=== PATIENT | male | born 1975 | race Caucasian/White ===

== ENCOUNTER 2022-01-19 13:48 | Outpatient (CLI) | payer BC, SELFPAY | END 2022-01-19 13:49 | disposition home or self-care (01) | LOC: WOUND 13:49 | PROVIDERS: PCP Family Medicine; Visit Provider Surgery | DX: T81.41XA Infection following a procedure, superficial incisional surgical site, initial encounter (principal) | CPT/HCPCS: 97597 ==

== ENCOUNTER 2022-01-26 14:23 | Outpatient (CLI) | payer BC, SELFPAY | END 2022-01-26 14:24 | disposition home or self-care (01) | PROVIDERS: PCP Family Medicine; Visit Provider Surgery | DX: T81.41XA Infection following a procedure, superficial incisional surgical site, initial encounter (principal) | CPT/HCPCS: 99212 ==

== ENCOUNTER 2022-02-16 10:22 | Outpatient (CLI) | payer BC, SELFPAY ==
[2022-02-16 14:22] LABS: Chloride* 103 mmol/L (96-114); Potassium* 4.6 mmol/L (3.6-5.1); Sodium* 139 mmol/L (135-149)
[2022-02-16 14:25] LABS: Blood Urea Nitrogen* 17 mg/dL (5-24); Carbon Dioxide* 24 mmol/L (20-32); Creatinine* 0.8 mg/dL (0.5-1.5); Estimated Glomerular Filt Rate 111 ml/min
[2022-02-16 14:26] LABS: Calcium* 9.6 mg/dL (8.4-10.6); Glucose* 156 mg/dL (60-115)
== END 2022-02-16 10:23 | disposition home or self-care (01) ==
PROVIDERS: PCP Family Medicine; Visit Provider Family Medicine
DX: Z01.818 Encounter for other preprocedural examination (principal); Z13.29 Encounter for screening for other suspected endocrine disorder; E78.5 Hyperlipidemia, unspecified; E13.9 Other specified diabetes mellitus without complications
CPT/HCPCS: 80048; 84443

== ENCOUNTER 2022-03-19 22:11 | Inpatient (IN) | payer BC, SELFPAY ==
[2022-03-19 22:28] VITALS: BP 154/74; PULSE 111; RESP 16; TEMP 36.6; O2SAT 98; BMI 31.2
--- NOTE | 2022-03-19 22:48 | CRLHL7_ITS ---
For Patients: As a result of the Century Cures Act, medical imaging exams and procedure reports are released immediately into your electronic medical record. You may view this report before your referring provider. If you have questions, please contact your health care provider. INDICATION: Abdominal pain. TECHNIQUE: CT abdomen and pelvis acquired with 122 cc Isovue 370 IV contrast. COMPARISON: 09/18/2021. FINDINGS: Lower chest: Calcified granulomas in the right middle lobe, unchanged. No focal consolidation or pleural effusion. Liver: Hepatic steatosis. No suspicious masses. Gallbladder and bile ducts: Distended gallbladder, nonspecific. No stones or inflammation. No biliary ductal dilatation. Spleen: Unremarkable. Normal in size. No masses. Adrenal glands: Unremarkable. No nodules. Pancreas: Unremarkable. No mass or inflammation. Kidneys: Unremarkable. No suspicious masses, stones, or hydronephrosis. GI tract: Postsurgical changes of ileocolectomy with anastomosis. Diffuse dilation of the entire small bowel as well as the stomach with a transition point at the anastomosis site, consistent with small bowel obstruction. Fluid- filled colon, likely representing diarrheal state. Lymph nodes: No lymphadenopathy. Vasculature: Unremarkable. Omentum/Peritoneum/Abdominal Wall: Anterior midline surgical scar. No free air or significant free fluid. Pelvis: Unremarkable. Bones: Unremarkable for age. IMPRESSION: Small bowel obstruction with transition point at the anastomosis site. Please note that all CT scans at this facility use dose modulation, iterative reconstruction, and/or weight-based dosing when appropriate to reduce radiation dose to as low as reasonably achievable. Dictated by Danny Stanley MD @ 03/20/2022 12:08:15 AM ----- ADDENDUM ----- Upon further discussion with Dr. Banks, small bowel obstruction is likely high-grade partial small-bowel obstruction. Additionally as noted in the findings, fluid-filled colon likely representing diarrheal state. Dictated by Danny Stanley MD @ Mar 20 2022 12:36AM Signed by:?Danny Stanley MD @03/20/2022 12:08:15 AM (Electronic Signature)
--- NOTE | 2022-03-19 22:51 | ED.ABDPAIN ---
HPI - Abdominal Pain General Chief Complaint: Abdominal Pain Stated Complaint: Something wrong with intestine Time Seen by Provider: 03/19/22 22:27 History of Present Illness HPI narrative: 46-year-old man presenting to the emergency department with complaint of increasing mid and generalized abdominal pain. Sharp and crampy and radiating into the back particularly on the right side. Does have a history of recurrent bowel obstructions and in November of this year had an ileocecectomy. Unclear why he started getting these obstructions. He had pain starting early this morning. Has vomited without hematemesis. Is no longer passing flatus as of this afternoon. No fever. Has been sweating. Clarified that he indeed has actually been having diarrhea over the course of the day as well. Apparently watery stools have been a part of his history of bowel obstructions. Related Data Home Medications Medication Instructions Recorded Confirmed Medical Cannabis PO .HS 01/18/22 02/16/22 atorvastatin 20 mg tablet 20 mg PO HS 01/18/22 03/20/22 bupropion HCl 100 mg tablet,12 hr 100 mg PO DAILY 01/18/22 03/20/22 sustained-release cyclobenzaprine 5 mg tablet 5 mg PO BID PRN 01/18/22 03/20/22 gemfibrozil 600 mg tablet 600 mg PO BID 01/18/22 03/20/22 glipizide 10 mg tablet, extended 10 mg PO DAILY 01/18/22 02/16/22 release 24 hr lorazepam 0.5 mg tablet 0.5 mg PO BID PRN 01/18/22 03/20/22 methocarbamol 500 mg tablet 750 mg PO QID 01/18/22 03/20/22 omeprazole 40 mg capsule,delayed 40 mg PO DAILY 01/18/22 03/20/22 release sitagliptin 100 mg tablet 100 mg PO DAILY 01/18/22 03/20/22 trazodone 50 mg tablet 50 mg PO HS 01/18/22 03/20/22 eszopiclone 3 mg tablet 3 mg PO HS PRN 03/20/22 03/20/22 Previous Rx's Medication Instructions Recorded pregabalin 100 mg capsule 100 mg PO BID #60 caps 02/16/22 metoprolol succinate 25 mg 25 mg PO BID #180 tabs 03/15/22 tablet,extended release 24 hr Allergies Allergy/AdvReac Type Severity Reaction Status Date / Time No Known Allergies Allergy Verified 03/20/22 00:19 Review of Systems Status of ROS Reports: 6 or more systems reviewed and unremarkable except as noted in History and below [facility] Medical History (Updated 03/22/22 @ 12:21 by Wolf Alberts MD) Depression GERD (gastroesophageal reflux disease) Herniation of lumbar intervertebral disc with radiculopathy Hypertension Terminal ileitis Type 2 diabetes mellitus Surgical History History of toe surgery Status post arthroscopy of left shoulder Status post repair of ventral hernia Status post right foot surgery Status post small bowel resection Status post vasectomy Family History (Updated 03/20/22 @ 09:34 by Ghada Larkin MD) Other Diabetes Leukemia Prostate cancer Rheumatoid arthritis Social History (Updated 03/20/22 @ 09:34 by Ghada Larkin MD) Narrative: 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 He does not smoke. Rarely drinks alcohol. Highest level of school completed/degree received: some college, no degree Smoking Status: Never smoker Do you use any of these nicotine containing products: None Second hand tobacco smoke exposure: No How often do you have a drink containing alcohol: 2-4 times a month Alcohol type: beer How often do you have six or more drinks on one occasion: Never AUDIT-C Alcohol total score: 2 Non-prescribed substance use: denies use Caffeine: Yes (4 cups per day) service: No Exam Narrative: Exam Narrative: Clammy, diaphoretic. Clearly uncomfortable. Splinting a little bit with breathing. Oropharynx is moist. Abdomen is overweight soft. Minimal to no bowel sounds, I thought I heard a little bit. Tense and guards generally to palpation especially the mid abdomen. Quite sore to percussion in the flanks Extremities --moving without difficulty. Well perfused. Cardiovascular tachycardic. Regular rhythm. Lungs appear to be clear. Const: Vital Signs, click to edit/add: Vital Signs - 24 hr 03/19/22 22:28 03/20/22 00:28 03/20/22 00:00 Temperature 97.8 F Pulse Rate [Right Pulse Oximeter] 111 H 105 H 98 Respiratory Rate 16 16 16 Blood Pressure [Ri ght Upper Arm] 154/74 H 102/90 H 122/90 H Pulse Oximetry 98 95 94 Oxygen Delivery Me thod Room Air Room Air Room Air 03/20/22 01:00 Temperature Pulse Rate [Right Pulse Oximeter] 97 Respiratory Rate 22 Blood Pressure [Ri ght Upper Arm] 119/90 H Pulse Oximetry 94 Oxygen Delivery Me thod Room Air Documenting provider has reviewed patient's vital signs: yes Course Course Hospital Course: Pain is improved. Return from imaging. Reevaluation(s) Reevaluation #1: Pain has been creeping back. Dosed again with Dilaudid 1 mg and then hyoscyamine dissolvable. Reevaluation #2: I spoke with our surgeon. Puzzling picture. Remains nearly to just tachycardic. Have ordered for a L of LR. Repeat abdominal exam he is noting himself overall improved. Indeed does look more comfortable. No longer diaphoretic. Abdomen is softer and he does not guard as before. Has been proposed for an NG tube as stomach looks somewhat full on imaging. He says historically intolerant of an NG tube unless ?knocked out?. Otherwise would not accept this. He has not vomited in the last more than 12 hours. Time: 01:09 Vital Signs Vital signs: Initial Vital Signs Temperature 97.8 F 03/19/22 22:28 Temperature Source Temporal Artery Scan 03/19/22 22:28 Pulse Rate 111 H 03/19/22 22:28 Respiratory Rate 16 03/19/22 22:28 Blood Pressure 154/74 H 03/19/22 22:28 Blood Pressure Mean 100 03/19/22 22:28 Blood Pressure Position Sitting 03/19/22 22:28 Pulse Oximetry 98 03/19/22 22:28 Oxygen Delivery Method 03/19/22 22:28 Vital Signs Temperature 97.8 F 03/19/22 22:28 Pulse Rate 111 H 03/19/22 22:28 Respiratory Rate 16 03/19/22 22:28 Blood Pressure 154/74 H 03/19/22 22:28 Pulse Oximetry 98 03/19/22 22:28 Oxygen Delivery Method 03/19/22 22:28 Temperature 97.7 F 03/22/22 11:53 Pulse Rate 73 03/22/22 11:53 Respiratory Rate 16 03/22/22 11:53 Blood Pressure 123/77 03/22/22 11:53 Pulse Oximetry 98 03/22/22 11:53 Oxygen Delivery Method 03/22/22 11:53 MDM - Abdominal Pain MDM Narrative Medical decision making narrative: Radiology read indicating presumed bowel obstruction at anastomosis site. Imaging I have reviewed shows fluid-filled colon seemingly inconsistent. Radiology having communicated further with our surgery on-call, might call this more of a partial small-bowel obstruction. Anticipating admission. 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 Medical Records Attestation: I reviewed the patient's medical records. Lab Data Attestation: I reviewed the patient's lab results. Labs: Lab Results 03/19/22 03/19/22 03/19/22 Range/Units 23:10 23:10 23:10 WBC 6.44 (4.50-11.00) K/uL RBC 5.36 (4.30-5.90) m/uL Hgb 16.8 (13.5-17.5) gm/dL Hct 50.0 (37.0-53.0) % MCV 93 (80-100) fL MCH 31 (26-34) pg MCHC 34 (32-36) gm/dL RDW Coeff of Tiffanie 15.3 (11.5-15.5) % Plt Count 380 (140-440) K/uL Neut % (Auto) 73.3 H (42.0-72.0) % Lymph % (Auto) 17.7 L (20-44) % Avery % (Auto) 7.6 (0.0-11.0) % Eos % (Auto) 1.2 (0.0-7.0) % Baso % (Auto) 0.0 (0.0-3.0) % Neut # (Auto) 4.70 (1.7-7.0) K/uL Lymph # (Auto) 1.10 (0.90-2.90) K/uL Avery # (Auto) 0.50 (0.00-0.90) K/UL Eos # (Auto) 0.08 (0.00-0.50) K/uL Baso # (Auto) 0.00 (0.00-0.30) K/uL Abs Immat Gran (auto) 0.01 (0.00-0.30) K/uL VBG pH (7.32-7.43) VBG pCO2 (40-50) mmHG VBG pO2 (25-47) mmHG VBG HCO3 (21-28) mmol/L Sodium 140 (135-149) mmol/L Potassium 4.7 (3.6-5.1) mmol/L Chloride 102 (96-114) mmol/L Carbon Dioxide 19 L (20-32) mmol/L BUN 18 (5-24) mg/dL Creatinine 1.2 (0.5-1.5) mg/dL Estimated Creat Clear 91.93 Estimated GFR 76 ml/min Glucose 210 H (60-115) mg/dL Lactate 1.1 (0.5-1.9) mmol/L Calcium 10.0 (8.4-10.6) mg/dL Magnesium 2.0 (1.5-2.6) mg/dL Total Bilirubin 1.1 (0.1-1.5) mg/dL AST 38 H (12-35) U/L ALT 39 (4-50) U/L Alkaline Phosphatase 93 (40-150) U/L Lactate Dehydrogenase 364 (313-618) U/L C-Reactive Protein 1.8 H (0.5-1.0) mg/dL Total Protein 10.7 H (6.0-8.3) g/dL Albumin 5.6 H (3.3-5.0) g/dL Lipase 60 (23-300) U/L SARS-CoV-2 (PCR) (Negative) 03/19/22 03/20/22 03/20/22 Range/Units 23:30 04:20 04:20 WBC 3.88 L (4.50-11.00) K/uL RBC 4.55 (4.30-5.90) m/uL Hgb 14.3 (13.5-17.5) gm/dL Hct 44.1 (37.0-53.0) % MCV 97 (80-100) fL MCH 31 (26-34) pg MCHC 32 (32-36) gm/dL RDW Coeff of Tiffanie 15.8 H (11.5-15.5) % Plt Count 306 (140-440) K/uL Neut % (Auto) 57.5 (42.0-72.0) % Lymph % (Auto) 32.5 (20-44) % Avery % (Auto) 8.2 (0.0-11.0) % Eos % (Auto) 1.5 (0.0-7.0) % Baso % (Auto) 0.3 (0.0-3.0) % Neut # (Auto) 2.20 (1.7-7.0) K/uL Lymph # (Auto) 1.30 (0.90-2.90) K/uL Avery # (Auto) 0.30 (0.00-0.90) K/UL Eos # (Auto) 0.10 (0.00-0.50) K/uL Baso # (Auto) 0.00 (0.00-0.30) K/uL Abs Immat Gran (auto) 0.00 (0.00-0.30) K/uL VBG pH (7.32-7.43) VBG pCO2 (40-50) mmHG VBG pO2 (25-47) mmHG VBG HCO3 (21-28) mmol/L Sodium 141 (135-149) mmol/L Potassium 4.4 (3.6-5.1) mmol/L Chloride 103 (96-114) mmol/L Carbon Dioxide 25 (20-32) mmol/L BUN 18 (5-24) mg/dL Creatinine 1.0 (0.5-1.5) mg/dL Estimated Creat Clear 104.31 Estimated GFR 94 ml/min Glucose 147 H (60-115) mg/dL Lactate (0.5-1.9) mmol/L Calcium 8.4 (8.4-10.6) mg/dL Magnesium (1.5-2.6) mg/dL Total Bilirubin (0.1-1.5) mg/dL AST (12-35) U/L ALT (4-50) U/L Alkaline Phosphatase (40-150) U/L Lactate Dehydrogenase (313-618) U/L C-Reactive Protein (0.5-1.0) mg/dL Total Protein (6.0-8.3) g/dL Albumin (3.3-5.0) g/dL Lipase (23-300) U/L SARS-CoV-2 (PCR) Negative SARS-CoV-2 (Negative) 03/20/22 Range/Units 04:20 WBC (4.50-11.00) K/uL RBC (4.30-5.90) m/uL Hgb (13.5-17.5) gm/dL Hct (37.0-53.0) % MCV (80-100) fL MCH (26-34) pg MCHC (32-36) gm/dL RDW Coeff of Tiffanie (11.5-15.5) % Plt Count (140-440) K/uL Neut % (Auto) (42.0-72.0) % Lymph % (Auto) (20-44) % Avery % (Auto) (0.0-11.0) % Eos % (Auto) (0.0-7.0) % Baso % (Auto) (0.0-3.0) % Neut # (Auto) (1.7-7.0) K/uL Lymph # (Auto) (0.90-2.90) K/uL Avery # (Auto) (0.00-0.90) K/UL Eos # (Auto) (0.00-0.50) K/uL Baso # (Auto) (0.00-0.30) K/uL Abs Immat Gran (auto) (0.00-0.30) K/uL VBG pH 7.294 L (7.32-7.43) VBG pCO2 55 H (40-50) mmHG VBG pO2 27.1 (25-47) mmHG VBG HCO3 26 (21-28) mmol/L Sodium (135-149) mmol/L Potassium (3.6-5.1) mmol/L Chloride (96-114) mmol/L Carbon Dioxide (20-32) mmol/L BUN (5-24) mg/dL Creatinine (0.5-1.5) mg/dL Estimated Creat Clear Estimated GFR ml/min Glucose (60-115) mg/dL Lactate 0.9 (0.5-1.9) mmol/L Calcium (8.4-10.6) mg/dL Magnesium (1.5-2.6) mg/dL Total Bilirubin (0.1-1.5) mg/dL AST (12-35) U/L ALT (4-50) U/L Alkaline Phosphatase (40-150) U/L Lactate Dehydrogenase (313-618) U/L C-Reactive Protein (0.5-1.0) mg/dL Total Protein (6.0-8.3) g/dL Albumin (3.3-5.0) g/dL Lipase (23-300) U/L SARS-CoV-2 (PCR) (Negative) Discharge Plan Discharge Clinical Impression: Colitis, Diarrhea, Partial small bowel obstruction Patient Disposition: Admitted As Inpatient Condition: Improved
[2022-03-19 23:25] LABS: Eosinophils Absolute Auto 0.08 K/uL (0.00-0.50); Eosinophils Percent Auto 1.2 % (0.0-7.0); Hemoglobin* 16.8 gm/dL (13.5-17.5); Immature Granulocytes Abs Auto 0.01 K/uL (0.00-0.30); Lymphocytes Percent Auto 17.7 % (20-44); Mean Corpuscular HGB Conc 34 gm/dL (32-36); Mean Corpuscular Hemoglobin 31 pg (26-34); Mean Corpuscular Volume 93 fL (80-100); Monocytes Percent Auto 7.6 % (0.0-11.0); Neutrophils Percent Auto 73.3 % (42.0-72.0); Platelet Count* 380 K/uL (140-440); RDW Coefficient of Variation % 15.3 % (11.5-15.5); Red Blood Count 5.36 m/uL (4.30-5.90); White Blood Count* 6.44 K/uL (4.50-11.00)
[2022-03-19] MEDS: ONDANSETRON 2 MG/ML inj 4 MG IVP (23:27)
[2022-03-19] MEDS: HYDROmorphone 0.5 mg/0.5 ml inj 1 MG IVP (23:27)
[2022-03-19] MEDS: 0.9 % SODIUM CHLORIDE 1000 ml 1,000 ML IV (23:27)
[2022-03-19 23:30] LABS: Slide Review Reflex No
[2022-03-19 23:41] LABS: Albumin* 5.6 g/dL (3.3-5.0)
[2022-03-19 23:42] LABS: Chloride* 102 mmol/L (96-114); Potassium* 4.7 mmol/L (3.6-5.1); Sodium* 140 mmol/L (135-149)
[2022-03-19 23:44] LABS: Aspartate Amino Transferase* 38 U/L (12-35); Bilirubin Total* 1.1 mg/dL (0.1-1.5); Carbon Dioxide* 19 mmol/L (20-32); Creatinine* 1.2 mg/dL (0.5-1.5); Est. Creatinine Clearance* 91.93; Estimated Glomerular Filt Rate 76 ml/min
[2022-03-19 23:45] LABS: Alanine Aminotransferase* 39 U/L (4-50); Alkaline Phosphatase* 93 U/L (40-150); Blood Urea Nitrogen* 18 mg/dL (5-24); Glucose* 210 mg/dL (60-115); Lactate Dehydrogenase* 364 U/L (313-618); Lipase* 60 U/L (23-300); Total Protein* 10.7 g/dL (6.0-8.3)
[2022-03-19 23:47] LABS: Lactate* 1.1 mmol/L (0.5-1.9)
[2022-03-20] VITALS (13 sets, daily range): BP systolic 102–124; BP diastolic 75–90; PULSE 78–105; RESP 16–22; TEMP 36.4–36.6; O2SAT 93–95; BMI 33.3
[2022-03-20 00:05] LABS: C Reactive Protein* 1.8 mg/dL (0.5-1.0)
[2022-03-20] MEDS: HYOSCYAMINE SULFATE 0.125 MG TAB 0.25 MG SUBLINGUAL (00:23)
[2022-03-20] MEDS: HYDROmorphone 0.5 mg/0.5 ml inj 1 MG IVP ×2 (00:23→02:15)
[2022-03-20 00:38] LABS: SARS PCR* Negative SARS-CoV-2 (Negative)
--- NOTE | 2022-03-20 01:05 | PM.EN ---
Chart Event Note Chart Event Note: Called by Dr. Alberts about this patient who is a 46 yo diabetic male with a history for recurrent sbo of unclear etiology. He underwent laparoscopic converted to open ileocecectomy in November electively as he had previously appeared to have Crohn's with ileitis. Path was unremarkable and again post-op he seemed to develop SBO at the anastomosis which resolved. He has had episodes of SBO which have resolved with steroids and extensive work-up uncluding colonoscopy showing aphthous ulcer of the terminal ileum, which is why he underwent resection. He interestingly, in October of 2021, had a CT showing portal venous air which per his chart resolved with antibiotics. Presents today with N/V/D and abdominal pain. Nl white count, mildly elevated CRP, nl lactate and NAG metabolic acidosis. Mild tachycardia as well. CT showing SBO with transition point at anastomosis as before, however, pt is having copious stool. Discussed with radiologist who stated obstruction likely only partial. No sign of bowel ischemia, no enteritis noted. Abd pain now improved slightly. Pt refusing NG given history of difficult placement. After review of complex history, will consider possible transfer to [place] where GI available and extensive work-up. If unable, then admit for serial exams, fluids, etc. Repeat labs in a few hours. I have not yet examined the patient at the time of this note.
[2022-03-20] MEDS: LACTATED RINGERS 1000 ML 1,000 ML IV (01:20)
--- NOTE | 2022-03-20 01:52 | W.PC.EDHO ---
Primary Language: Preferred Language: Orientation Status: [X] Alert & Oriented [] Slight Confusion [] Known Dx Dementia Transfers By: [X] Assist of 1 [] Assist of 2 [] Lift Active Medications Discontinued Medications Generic Name Dose Route Start Last Admin Trade Name Freq PRN Reason Stop Dose Admin Hydromorphone HCl 1 mg 03/19/22 22:48 03/19/22 23:27 Hydromorphone 0.5 Mg/0.5 Ml Inj IVP 03/19/22 22:49 1 mg ONCE ONE Administration Hydromorphone HCl 1 mg 03/20/22 00:10 03/20/22 00:23 Hydromorphone 0.5 Mg/0.5 Ml Inj IVP 03/20/22 00:11 1 mg ONCE ONE Administration Hyoscyamine 0.25 mg 03/20/22 00:10 03/20/22 00:23 Hyoscyamine Sulfate 0.125 Mg Tab SUBLINGUAL 03/20/22 00:11 0.25 mg ONCE ONE Administration Sodium Chloride 1,000 mls @ 1,000 mls/hr 03/19/22 22:48 03/19/22 23:27 0.9 % Sodium Chloride 1000 Ml IV 03/19/22 23:47 1,000 mls/hr .Q1H ONE Administration Lactated Ringer's 1,000 mls @ 1,000 mls/hr 03/20/22 00:28 03/20/22 01:20 Lactated Ringers 1000 Ml IV 03/20/22 01:27 1,000 mls/hr .Q1H ONE Administration Ondansetron HCl 4 mg 03/19/22 22:48 03/19/22 23:27 Ondansetron 2 Mg/Ml Inj IVP 03/19/22 22:49 4 mg ONCE ONE Administration Description of Symptoms ED Triage Present Problem CC: Abdominal Pain, N/V, Diarrhea Description pt. with n/o bowel obstructions. had surgery at [facility] for abdominal surgery. symptoms started this morning at 0700. ED Triage Date of Onset of 03/19/22 Symptoms Female History Patient Pain Pain Description [Abdomen] Acute Pain Intensity [Abdomen] 9 Pain Intensity [Abdomen] 7 Pain Intensity 6 Pain Intensity 6 Pain Intensity 6 Pain Intensity 9 Pain Intensity 7 Pain Intensity 9 Pain Scale Used [Abdomen] Numeric (1 - 10) Pain Scale Used [Abdomen] Numeric (1 - 10) Pain Scale Used Numeric (1 - 10) Pain Scale Used Numeric (1 - 10) Pain Scale Used Numeric (1 - 10) Pain Scale Used Numeric (1 - 10) Pain Scale Used Numeric (1 - 10) Oxygen Administration Pulse Oximetry 94 Pulse Oximetry 95 Pulse Oximetry 94 Pulse Oximetry 98 Oxygen Delivery Method Room Air Oxygen Delivery Method Room Air Oxygen Delivery Method Room Air Oxygen Delivery Method Room Air
[2022-03-20] MEDS: ONDANSETRON 2 MG/ML inj 4 MG IVP ×4 (02:15→17:33)
--- NOTE | 2022-03-20 02:25 | ED.NURSE ---
pt did not want NG tube
--- NOTE | 2022-03-20 03:00 | PM.IMCN1 ---
Date of Consult Consult date: 02/20/22 Primary Care Provider: Mark Gallegos MD Consult Narrative Narrative[facility] AD[facility]ION SUPPORT NOTE eHospitalist was contacted by Dr. Alberts with request of admission support. Chief complaint: Abdominal pain HPI: The patient reports that on Monday morning he started developing pain in his abdomen similar to his previous bowel obstructions. The pain is more so in the right upper quadrant and left lower quadrant but sometimes radiates to his back. He knows that this is related to bowel obstruction because when he belches it smells and tastes funny. He then develops bowel movements that are loose and then turned to watery. He did have an episode of vomiting on Monday. He reports his pain currently is 4/10 intensity. He reports that he is unable to tolerate NG tube. Review of systems other than mentioned above is negative Home Medications/Pertinent Medical History/Pertinent Social History: Reviewed see EMR for details Review of Systems Status of ROS: Reports: 10 or more systems reviewed and unremarkable except as noted in History and below PFSH PFS Medical History (Updated 03/20/22 @ 06:32 by Ema Echevarria MD) Depression GERD (gastroesophageal reflux disease) Herniation of lumbar intervertebral disc with radiculopathy Hypertension Terminal ileitis Type 2 diabetes mellitus Surgical History History of toe surgery Status post arthroscopy of left shoulder Status post repair of ventral hernia Status post right foot surgery Status post small bowel resection Status post vasectomy Family History Other Diabetes Leukemia Prostate cancer Rheumatoid arthritis Social History Highest level of school completed/degree received: some college, no degree Smoking Status: Never smoker Do you use any of these nicotine containing products: None Second hand tobacco smoke exposure: No How often do you have a drink containing alcohol: 2-4 times a month Alcohol type: beer How often do you have six or more drinks on one occasion: Never AUDIT-C Alcohol total score: 2 Non-prescribed substance use: denies use Caffeine: Yes (4 cups per day) service: No Meds Home Medications and Allergies Home Medications Medication Instructions Recorded Confirmed Type Medical Cannabis PO .HS 01/18/22 02/16/22 History atorvastatin 20 mg tablet mg PO .Bedtime 01/18/22 02/16/22 History bupropion HCl 100 mg tablet,12 hr mg PO DAILY 01/18/22 02/16/22 History sustained-release cyclobenzaprine 5 mg tablet 5 mg PO BID PRN 01/18/22 02/16/22 History gemfibrozil 600 mg tablet 600 mg PO BID 01/18/22 02/16/22 History glipizide 10 mg tablet, extended 10 mg PO DAILY 01/18/22 02/16/22 History release 24 hr lorazepam 0.5 mg tablet mg PO BID PRN 01/18/22 02/16/22 History methocarbamol 500 mg tablet 750 mg PO QID 01/18/22 02/16/22 History omeprazole 40 mg capsule,delayed mg PO DAILY 01/18/22 02/16/22 History release oxycodone 5 mg tablet mg PO Q6H PRN 01/18/22 02/16/22 History oxycodone-acetaminophen 7.5 mg-325 tab PO QID PRN 01/18/22 02/16/22 History mg tablet sitagliptin 100 mg tablet 100 mg PO DAILY 01/18/22 02/16/22 History trazodone 50 mg tablet mg PO .Bedtime as needed PRN 01/18/22 02/16/22 History Allergies Allergy/AdvReac Type Severity Reaction Status Date / Time No Known Allergies Allergy Verified 03/20/22 00:19 Exam Narrative: Exam Narrative: Exam (performed via interactive video with assistance of bedside nurse): General: Alert, cooperative, no acute distress HEENT: Oral mucosa pink and moist without erythema Lungs: Clear to auscultation bilaterally without crackle or wheeze CV: Regular rate and rhythm without loud murmur rub, S4 gallop present Abd: Bowel sounds hypoactive, he does exhibit tenderness to palpation by bedside nurse in right lower quadrant, left lower quadrant, left upper quadrant Ext: No pitting edema noted Skin: No rashes, bruises or lesions appreciated on gross visualization of exposed skin Neuro: Alert, oriented x 3. CN III -VII, XI, XII grossly intact, moves all extremities without any significant focal deficit appreciated Const: Vital Signs, click to edit/add: Vital Signs - 24 hr 03/19/22 22:28 03/20/22 00:28 03/20/22 00:00 Temperature 97.8 F Pulse Rate [Right Pulse Oximeter] 111 H 105 H 98 Pulse Rate [Right Radial] Respiratory Rate 16 16 16 Blood Pressure [Le ft Arm] Blood Pressure [Ri ght Upper Arm] 154/74 H 102/90 H 122/90 H Pulse Oximetry 98 95 94 Oxygen Delivery Me thod Room Air Room Air Room Air 03/20/22 01:00 03/20/22 02:37 03/20/22 02:50 Temperature 97.6 F 97.6 F Pulse Rate [Right Pulse Oximeter] 97 Pulse Rate [Right Radial] 83 83 Respiratory Rate 22 18 18 Blood Pressure [Le ft Arm] 111/77 111/77 Blood Pressure [Ri ght Upper Arm] 119/90 H Pulse Oximetry 94 94 94 Oxygen Delivery Me thod Room Air Room Air Room Air Labs Labs: Short CBC 03/19/22 Range/Units 23:10 WBC 6.44 (4.50-11.00) K/uL Hgb 16.8 (13.5-17.5) gm/dL Hct 50.0 (37.0-53.0) % Plt Count 380 (140-440) K/uL BMP 03/19/22 23:10 Sodium 140 Potassium 4.7 Chloride 102 Carbon Dioxide 19 L BUN 18 Creatinine 1.2 Glucose 210 H Calcium 10.0 Liver Function 03/19/22 Range/Units 23:10 Total Bilirubin 1.1 (0.1-1.5) mg/dL AST 38 H (12-35) U/L ALT 39 (4-50) U/L Alkaline Phosphatase 93 (40-150) U/L Albumin 5.6 H (3.3-5.0) g/dL Imaging CT Chest/Ab/Pelvis: Attestation: I have reviewed the pertinent imaging results. Assessment and Plan Assessment and plan (1) Bowel obstruction: Status: Acute Plan Recent lab/CT scan of abdomen and pelvis: Reviewed see EMR for details Assessment and Plan: 1. Small bowel obstruction-slightly improved. Keep NPO. General surgery to evaluate in a.m. 2. Dyslipidemia-stable on statin, gemfibrozil 3. Depression-stable on Wellbutrin 4. Insomnia-stable on eszopiclone and trazodone 5. DM2-placed on sliding scale insulin 5. Hypertension-stable on metoprolol. Consider as needed hydralazine while n.p.o. 6. GERD-IV Protonix for now 7. DVT prophylaxis SCDs 8. CODE STATUS full code per documentation Chart review was performed as well as evaluation of the patient via video. Thank you for involving ehospitalist. Please contact [phone] if further assistance is needed.
[2022-03-20] MEDS: PANTOPRAZOLE SODIUM 40 MG INJ IVP ×2 (03:50→21:01)
[2022-03-20] MEDS: 0.9 % SODIUM CHLORIDE 1000 ml 1,000 ML 125 ML IV (03:50)
[2022-03-20 04:28] LABS: HCO3 VBG 26 mmol/L (21-28); Lactate* 0.9 mmol/L (0.5-1.9); PCO2 VBG 55 mmHG (40-50); PO2 VBG 27.1 mmHG (25-47); pH VBG 7.294 (7.32-7.43)
[2022-03-20 04:30] LABS: Basophils Percent Auto 0.3 % (0.0-3.0); Eosinophils Percent Auto 1.5 % (0.0-7.0); Hematocrit 44.1 % (37.0-53.0); Hemoglobin* 14.3 gm/dL (13.5-17.5); Lymphocytes Percent Auto 32.5 % (20-44); Mean Corpuscular HGB Conc 32 gm/dL (32-36); Mean Corpuscular Hemoglobin 31 pg (26-34); Mean Corpuscular Volume 97 fL (80-100); Monocytes Percent Auto 8.2 % (0.0-11.0); Neutrophils Percent Auto 57.5 % (42.0-72.0); Platelet Count* 306 K/uL (140-440); RDW Coefficient of Variation % 15.8 % (11.5-15.5); Red Blood Count 4.55 m/uL (4.30-5.90); White Blood Count* 3.88 K/uL (4.50-11.00)
[2022-03-20 04:35] LABS: Slide Review Reflex No
[2022-03-20 04:58] LABS: Chloride* 103 mmol/L (96-114); Potassium* 4.4 mmol/L (3.6-5.1); Sodium* 141 mmol/L (135-149)
[2022-03-20 05:01] LABS: Blood Urea Nitrogen* 18 mg/dL (5-24); Carbon Dioxide* 25 mmol/L (20-32); Est. Creatinine Clearance* 104.31; Estimated Glomerular Filt Rate 94 ml/min; Glucose* 147 mg/dL (60-115)
[2022-03-20 05:02] LABS: Calcium* 8.4 mg/dL (8.4-10.6)
[2022-03-20] MEDS: HYDROmorphone 0.5 mg/0.5 ml inj IVP ×8 (05:25→23:52)
--- NOTE | 2022-03-20 05:43 | PC.NURSE ---
Pt BG was 156 @ 0600. Insulin not given since Pt is NPO. Pt agreed. Charge notified.
--- NOTE | 2022-03-20 07:47 | PM.GSCN ---
History of Present Illness Consult details Date Seen: 03/20/22 Consult date: 03/20/22 Narrative: The patient is a 46-year-old male who presents to the emergency department last evening with nausea, vomiting and diarrhea. He has a longstanding complicated abdominal history with a possible diagnosis of Crohn's ileitis as well as multiple bowel obstructions over the past 11 years. From a view of his medical record, in the past he has had multiple colonoscopies with biopsy showing nonfocal ileitis. However in 2016 reportedly he was seen at [place] in felt that there was no diagnostic criteria for Crohn disease. He had been hospitalized multiple times with bowel obstruction and treated with steroids successfully. In August of 2021 he was hospitalized twice at [facility]. Both times he improved with NG decompression and without steroids. In there was always concern about obstruction at the terminal ileum and therefore at [place] he underwent an outpatient balloon endoscopyhowever there was no stricture noted. He again presented in October with a bowel obstruction type picture but also had portal venous gas. At that time he was treated with antibiotics and improved. After this episode he underwent outpatient CT enterography which reportedly was normal. This was done a [facility]. Because of the concern for an ileal process causing recurrent obstructions, he underwent laparoscopic converted to open ileocecectomy on 11/26/2021 [facility]. His postoperative course was complicated by concern for anastomotic stricture/obstruction postoperatively which resolved with conservative management. He also developed COVID during the hospital stay. He states that since his admission back in November he has been fine. Yesterday morning he woke up at 6:00 a.m. and went to the bathroom. He noted that his joints were sore and so he went back to bed. At 7:00 a.m. he began having abdominal pain. This is primary in the left upper quadrant as well as right lower quadrant. This is similar to pain he has had in the past. He then developed nausea vomiting and diarrhea as well as belching a foul odor that smelled like rotten eggs. This is similar to symptoms he has had previously. In the ED, he initially was mildly tachycardic with some abdominal distension with a mildly elevated CRP. Lactate was normal, however his bicarb was low. He was admitted to the hospital re-examined later in the evening after fluids and pain medication. His labs had improved and his vital signs as well as pain also improved. He now feels better than yesterday. Review of Systems Status of ROS: Reports: 10 or more systems reviewed and unremarkable except as noted in History and below PFSH [facility] Medical History (Updated 03/20/22 @ 09:37 by Ghada Larkin MD) Depression GERD (gastroesophageal reflux disease) Herniation of lumbar intervertebral disc with radiculopathy Hypertension Terminal ileitis Type 2 diabetes mellitus Surgical History History of toe surgery Status post arthroscopy of left shoulder Status post repair of ventral hernia Status post right foot surgery Status post small bowel resection Status post vasectomy Family History (Updated 03/20/22 @ 09:34 by Ghada Larkin MD) Other Diabetes Leukemia Prostate cancer Rheumatoid arthritis Social History (Updated 03/20/22 @ 09:34 by Ghada Larkin MD) Narrative: 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 He does not smoke. Rarely drinks alcohol. Highest level of school completed/degree received: some college, no degree Smoking Status: Never smoker Do you use any of these nicotine containing products: None Second hand tobacco smoke exposure: No How often do you have a drink containing alcohol: 2-4 times a month Alcohol type: beer How often do you have six or more drinks on one occasion: Never AUDIT-C Alcohol total score: 2 Non-prescribed substance use: denies use Caffeine: Yes (4 cups per day) service: No Meds Home Medications and Allergies Home Medications Medication Instructions Recorded Confirmed Type Medical Cannabis PO .HS 01/18/22 02/16/22 History atorvastatin 20 mg tablet mg PO .Bedtime 01/18/22 02/16/22 History bupropion HCl 100 mg tablet,12 hr mg PO DAILY 01/18/22 02/16/22 History sustained-release cyclobenzaprine 5 mg tablet 5 mg PO BID PRN 01/18/22 02/16/22 History gemfibrozil 600 mg tablet 600 mg PO BID 01/18/22 02/16/22 History glipizide 10 mg tablet, extended 10 mg PO DAILY 01/18/22 02/16/22 History release 24 hr lorazepam 0.5 mg tablet mg PO BID PRN 01/18/22 02/16/22 History methocarbamol 500 mg tablet 750 mg PO QID 01/18/22 02/16/22 History omeprazole 40 mg capsule,delayed mg PO DAILY 01/18/22 02/16/22 History release oxycodone 5 mg tablet mg PO Q6H PRN 01/18/22 02/16/22 History oxycodone-acetaminophen 7.5 mg-325 tab PO QID PRN 01/18/22 02/16/22 History mg tablet sitagliptin 100 mg tablet 100 mg PO DAILY 01/18/22 02/16/22 History trazodone 50 mg tablet mg PO .Bedtime as needed PRN 01/18/22 02/16/22 History Allergies Allergy/AdvReac Type Severity Reaction Status Date / Time No Known Allergies Allergy Verified 03/20/22 00:19 Exam Narrative: Exam Narrative: General: No acute distress CV: Regular rate and rhythm Respiratory: Clear to auscultation bilaterally Abdomen: Scars consistent with surgical history. Protuberant. Soft and tender in the left upper quadrant and right lower quadrant without guarding or rebound. Const: Vital Signs, click to edit/add: Vital Signs - 24 hr 03/19/22 22:28 03/20/22 00:28 03/20/22 00:00 Temperature 97.8 F Pulse Rate [Right Pulse Oximeter] 111 H 105 H 98 Pulse Rate [Right Radial] Respiratory Rate 16 16 16 Blood Pressure [Le ft Arm] Blood Pressure [Ri ght Upper Arm] 154/74 H 102/90 H 122/90 H Pulse Oximetry 98 95 94 Oxygen Delivery Me thod Room Air Room Air Room Air 03/20/22 01:00 03/20/22 02:37 03/20/22 02:50 Temperature 97.6 F 97.6 F Pulse Rate [Right Pulse Oximeter] 97 Pulse Rate [Right Radial] 83 83 Respiratory Rate 22 18 18 Blood Pressure [Le ft Arm] 111/77 111/77 Blood Pressure [Ri ght Upper Arm] 119/90 H Pulse Oximetry 94 94 94 Oxygen Delivery Me thod Room Air Room Air Room Air 03/20/22 03:56 Temperature Pulse Rate [Right Pulse Oximeter] Pulse Rate [Right Radial] Respiratory Rate 18 Blood Pressure [Le ft Arm] Blood Pressure [Ri ght Upper Arm] Pulse Oximetry 94 Oxygen Delivery Me thod Room Air Results Labs Labs: Abnormal lab results 03/19/22 03/19/22 03/20/22 Range/Units 23:10 23:10 04:20 WBC 3.88 L (4.50-11.00) K/uL RDW Coeff of [place] 15.8 H (11.5-15.5) % Neut % (Auto) 73.3 H (42.0-72.0) % Lymph % (Auto) 17.7 L (20-44) % VBG pH (7.32-7.43) VBG pCO2 (40-50) mmHG Carbon Dioxide 19 L (20-32) mmol/L Glucose 210 H (60-115) mg/dL AST 38 H (12-35) U/L C-Reactive Protein 1.8 H (0.5-1.0) mg/dL Total Protein 10.7 H (6.0-8.3) g/dL Albumin 5.6 H (3.3-5.0) g/dL 03/20/22 03/20/22 Range/Units 04:20 04:20 WBC (4.50-11.00) K/uL RDW Coeff of Tiffanie (11.5-15.5) % Neut % (Auto) (42.0-72.0) % Lymph % (Auto) (20-44) % VBG pH 7.294 L (7.32-7.43) VBG pCO2 55 H (40-50) mmHG Carbon Dioxide (20-32) mmol/L Glucose 147 H (60-115) mg/dL AST (12-35) U/L C-Reactive Protein (0.5-1.0) mg/dL Total Protein (6.0-8.3) g/dL Albumin (3.3-5.0) g/dL Diabetes panel 03/19/22 03/20/22 Range/Units 23:10 04:20 Sodium 140 141 (135-149) mmol/L Potassium 4.7 4.4 (3.6-5.1) mmol/L Chloride 102 103 (96-114) mmol/L Carbon Dioxide 19 L 25 (20-32) mmol/L BUN 18 18 (5-24) mg/dL Creatinine 1.2 1.0 (0.5-1.5) mg/dL Glucose 210 H 147 H (60-115) mg/dL Calcium 10.0 8.4 (8.4-10.6) mg/dL AST 38 H (12-35) U/L ALT 39 (4-50) U/L Alkaline Phosphatase 93 (40-150) U/L Total Protein 10.7 H (6.0-8.3) g/dL Albumin 5.6 H (3.3-5.0) g/dL Calcium panel 03/19/22 03/20/22 Range/Units 23:10 04:20 Calcium 10.0 8.4 (8.4-10.6) mg/dL Albumin 5.6 H (3.3-5.0) g/dL Pituitary panel 03/19/22 03/20/22 Range/Units 23:10 04:20 Sodium 140 141 (135-149) mmol/L Potassium 4.7 4.4 (3.6-5.1) mmol/L Chloride 102 103 (96-114) mmol/L Carbon Dioxide 19 L 25 (20-32) mmol/L BUN 18 18 (5-24) mg/dL Creatinine 1.2 1.0 (0.5-1.5) mg/dL Glucose 210 H 147 H (60-115) mg/dL Calcium 10.0 8.4 (8.4-10.6) mg/dL Adrenal panel 03/19/22 03/20/22 Range/Units 23:10 04:20 Sodium 140 141 (135-149) mmol/L Potassium 4.7 4.4 (3.6-5.1) mmol/L Chloride 102 103 (96-114) mmol/L Carbon Dioxide 19 L 25 (20-32) mmol/L BUN 18 18 (5-24) mg/dL Creatinine 1.2 1.0 (0.5-1.5) mg/dL Glucose 210 H 147 H (60-115) mg/dL Calcium 10.0 8.4 (8.4-10.6) mg/dL Total Bilirubin 1.1 (0.1-1.5) mg/dL AST 38 H (12-35) U/L ALT 39 (4-50) U/L Alkaline Phosphatase 93 (40-150) U/L Total Protein 10.7 H (6.0-8.3) g/dL Albumin 5.6 H (3.3-5.0) g/dL All other labs normal. Imaging Abdomen CT scan report/results: report reviewed (Diagnostic Imaging Report Patient: Lawson Whitley EMR#: [id number]: [id number]:[id number]: EDService Date: 03/19/22Attending Dr: Ordering Physician: Wolf Alberts MD Date of Service: 03/19/22 Procedure(s): CT abdomen w con Accession Number(s): [id number] cc: Mark Gallegos M.D.; [place]) and image reviewed (Discussed with radiologist. No signs of bowel ischemia. Small bowel diffusely dilated consistent with obstruction rather than enteritis however the obstruction appears to be partial given the large amount of liquid stool in the colon. 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 This is similar to prior episodes that he has had. He has had extensive workup and at times is been thought to have Crohn's disease, however workup was never definitive. He has had workup at both [facility] and [facility] and through [facility]. Currently he is improved. I did review the images with the radiologist. He has a large amount of liquid stool in the stool in the colon as well as dilatation of the small bowel. There is no sign of bowel ischemia. There is no enteritis noted. I explained to the patient that it is possible he could have a partial obstruction of his anastomosis and may need revision, however acutely since he is having copious diarrhea I do not think that this is as likely. It is also possible that he has further inflammation of the ileum, however this is not seen on CT scan. I would recommend NPO and IV fluids for now. He declined NG placement which is reasonable as long as he does not continue to vomit. I also recommended checking for H pylori as well as other gastrointestinal bug such as Giardia which can cause as sulfur smelling belching. This order was placed. I recommend a GI consult to discuss whether not the patient would benefit from steroids. The only downside would be if he would need surgery, this could hinder his healing and increases risk of wound infection, however I think we can start with conservative management and if he fails to improve discuss with GI. Finally, if he discharges then I recommend colonoscopy as an outpatient to evaluate for anastomotic stricture. Alternatively he could undergo barium enema.
--- NOTE | 2022-03-20 10:36 | P.IMPN_ITS ---
Subjective Date Seen: 03/20/22 Interval history: please see AM admitting H&P Exam Const: Vital Signs, click to edit/add: Vital Signs - 24 hr 03/19/22 22:28 03/20/22 00:28 03/20/22 00:00 Temperature 97.8 F Pulse Rate [Right Pulse Oximeter] 111 H 105 H 98 Pulse Rate [Right Radial] Respiratory Rate 16 16 16 Blood Pressure [Le ft Arm] Blood Pressure [Ri ght Upper Arm] 154/74 H 102/90 H 122/90 H Pulse Oximetry 98 95 94 Oxygen Delivery Me thod Room Air Room Air Room Air 03/20/22 01:00 03/20/22 02:37 03/20/22 02:50 Temperature 97.6 F 97.6 F Pulse Rate [Right Pulse Oximeter] 97 Pulse Rate [Right Radial] 83 83 Respiratory Rate 22 18 18 Blood Pressure [Le ft Arm] 111/77 111/77 Blood Pressure [Ri ght Upper Arm] 119/90 H Pulse Oximetry 94 94 94 Oxygen Delivery Me thod Room Air Room Air Room Air 03/20/22 03:56 Temperature Pulse Rate [Right Pulse Oximeter] Pulse Rate [Right Radial] Respiratory Rate 18 Blood Pressure [Le ft Arm] Blood Pressure [Ri ght Upper Arm] Pulse Oximetry 94 Oxygen Delivery Me thod Room Air Labs Labs: Laboratory Results - last 24 hr 03/19/22 03/19/22 03/19/22 23:10 23:10 23:10 WBC 6.44 RBC 5.36 Hgb 16.8 Hct 50.0 MCV 93 MCH 31 MCHC 34 RDW Coeff of Tiffanie 15.3 Plt Count 380 Neut % (Auto) 73.3 H Lymph % (Auto) 17.7 L [place] % (Auto) 7.6 Eos % (Auto) 1.2 Baso % (Auto) 0.0 Neut # (Auto) 4.70 Lymph # (Auto) 1.10 [place] # (Auto) 0.50 Eos # (Auto) 0.08 Baso # (Auto) 0.00 Abs Immat Gran (auto) 0.01 VBG pH VBG pCO2 VBG pO2 VBG HCO3 Sodium 140 Potassium 4.7 Chloride 102 Carbon Dioxide 19 L BUN 18 Creatinine 1.2 Estimated Creat Clear 91.93 Estimated GFR 76 Glucose 210 H Lactate 1.1 Calcium 10.0 Magnesium 2.0 Total Bilirubin 1.1 AST 38 H ALT 39 Alkaline Phosphatase 93 Lactate Dehydrogenase 364 C-Reactive Protein 1.8 H Total Protein 10.7 H Albumin 5.6 H Lipase 60 SARS-CoV-2 (PCR) 03/19/22 03/20/22 03/20/22 23:30 04:20 04:20 WBC 3.88 L RBC 4.55 Hgb 14.3 Hct 44.1 MCV 97 MCH 31 MCHC 32 RDW Coeff of Tiffanie 15.8 H Plt Count 306 Neut % (Auto) 57.5 Lymph % (Auto) 32.5 [place] % (Auto) 8.2 Eos % (Auto) 1.5 Baso % (Auto) 0.3 Neut # (Auto) 2.20 Lymph # (Auto) 1.30 [place] # (Auto) 0.30 Eos # (Auto) 0.10 Baso # (Auto) 0.00 Abs Immat Gran (auto) 0.00 VBG pH VBG pCO2 VBG pO2 VBG HCO3 Sodium 141 Potassium 4.4 Chloride 103 Carbon Dioxide 25 BUN 18 Creatinine 1.0 Estimated Creat Clear 104.31 Estimated GFR 94 Glucose 147 H Lactate Calcium 8.4 Magnesium Total Bilirubin AST ALT Alkaline Phosphatase Lactate Dehydrogenase C-Reactive Protein Total Protein Albumin Lipase SARS-CoV-2 (PCR) Negative SARS-CoV-2 03/20/22 04:20 WBC RBC Hgb Hct MCV MCH MCHC RDW Coeff of Tiffanie Plt Count Neut % (Auto) Lymph % (Auto) [place] % (Auto) Eos % (Auto) Baso % (Auto) Neut # (Auto) Lymph # (Auto) [place] # (Auto) Eos # (Auto) Baso # (Auto) Abs Immat Gran (auto) VBG pH 7.294 L VBG pCO2 55 H VBG pO2 27.1 VBG HCO3 26 Sodium Potassium Chloride Carbon Dioxide BUN Creatinine Estimated Creat Clear Estimated GFR Glucose Lactate 0.9 Calcium Magnesium Total Bilirubin AST ALT Alkaline Phosphatase Lactate Dehydrogenase C-Reactive Protein Total Protein Albumin Lipase SARS-CoV-2 (PCR)
--- NOTE | 2022-03-20 10:40 | PM.IMHP1 ---
Hospitalist- H&P: HPI History of Present Illness Date Seen: 03/20/22 Chief complaint: Something wrong with intestine Narrative: Lawson Whitley is a 46 year old male with past medical history of Type II DM, HLD, Chronic back pain, fibromyalgia, hx of ventral hernia repair, hx of small bowel resection presenting for abdominal pain. He presented to ED last night with worsening abdominal pain. In the ED CT AP showed Small bowel obstruction with transition point at the anastomosis site. He was admitted overnight. This morning he continues to have epigastric abdominal pain that is waxing and waning. he denies chest pain and sob. Denies nausea and vomiting. he had BM this AM. Endorses acid reflux and dyspepsia. Review of Systems Status of ROS: Reports: 10 or more systems reviewed and unremarkable except as noted in History and below PFSH [facility] Medical History (Updated 03/20/22 @ 09:37 by Ghada Larkin MD) Depression GERD (gastroesophageal reflux disease) Herniation of lumbar intervertebral disc with radiculopathy Hypertension Terminal ileitis Type 2 diabetes mellitus Surgical History History of toe surgery Status post arthroscopy of left shoulder Status post repair of ventral hernia Status post right foot surgery Status post small bowel resection Status post vasectomy Family History (Updated 03/20/22 @ 09:34 by Ghada Larkin MD) Other Diabetes Leukemia Prostate cancer Rheumatoid arthritis Social History (Updated 03/20/22 @ 09:34 by Ghada Larkin MD) Narrative: 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 He does not smoke. Rarely drinks alcohol. Highest level of school completed/degree received: some college, no degree Smoking Status: Never smoker Do you use any of these nicotine containing products: None Second hand tobacco smoke exposure: No How often do you have a drink containing alcohol: 2-4 times a month Alcohol type: beer How often do you have six or more drinks on one occasion: Never AUDIT-C Alcohol total score: 2 Non-prescribed substance use: denies use Caffeine: Yes (4 cups per day) service: No Meds Home Medications and Allergies Home Medications Medication Instructions Recorded Confirmed Type Medical Cannabis PO .HS 01/18/22 02/16/22 History atorvastatin 20 mg tablet 20 mg PO 01/18/22 03/20/22 History bupropion HCl 100 mg tablet,12 hr 100 mg PO DAILY 01/18/22 03/20/22 History sustained-release cyclobenzaprine 5 mg tablet 5 mg PO BID PRN 01/18/22 03/20/22 History gemfibrozil 600 mg tablet 600 mg PO BID 01/18/22 03/20/22 History glipizide 10 mg tablet, extended 10 mg PO DAILY 01/18/22 02/16/22 History release 24 hr lorazepam 0.5 mg tablet 0.5 mg PO BID PRN 01/18/22 03/20/22 History methocarbamol 500 mg tablet 750 mg PO QID 01/18/22 03/20/22 History omeprazole 40 mg capsule,delayed 40 mg PO DAILY 01/18/22 03/20/22 History release sitagliptin 100 mg tablet 100 mg PO DAILY 01/18/22 03/20/22 History trazodone 50 mg tablet 50 mg PO HS 01/18/22 03/20/22 History eszopiclone 3 mg tablet 3 mg PO HS PRN 03/20/22 03/20/22 History Allergies Allergy/AdvReac Type Severity Reaction Status Date / Time No Known Allergies Allergy Verified 03/20/22 00:19 Exam Narrative: Exam Narrative: Gen: no acute distress HEENT: NCAT EOMI MMM CV: RRR normal s1 s2 Lungs: CTAB Abd: mid epigastric tenderness Neuro: alert, oriented, moves extremities, CN intact, nonfocal screening exam MSK: Age appropriate muscle mass Skin: warm, dry no rash on face Psyche: appropriate affect Const: Vital Signs, click to edit/add: Vital Signs - 24 hr 03/19/22 22:28 03/20/22 00:28 03/20/22 00:00 Temperature 97.8 F Pulse Rate [Right Pulse Oximeter] 111 H 105 H 98 Pulse Rate [Right Radial] Respiratory Rate 16 16 16 Blood Pressure [Le ft Arm] Blood Pressure [Ri ght Upper Arm] 154/74 H 102/90 H 122/90 H Pulse Oximetry 98 95 94 Oxygen Delivery Me thod Room Air Room Air Room Air 03/20/22 01:00 03/20/22 02:37 03/20/22 02:50 Temperature 97.6 F 97.6 F Pulse Rate [Right Pulse Oximeter] 97 Pulse Rate [Right Radial] 83 83 Respiratory Rate 22 18 18 Blood Pressure [Le ft Arm] 111/77 111/77 Blood Pressure [Ri ght Upper Arm] 119/90 H Pulse Oximetry 94 94 94 Oxygen Delivery Me thod Room Air Room Air Room Air 03/20/22 03:56 Temperature Pulse Rate [Right Pulse Oximeter] Pulse Rate [Right Radial] Respiratory Rate 18 Blood Pressure [Le ft Arm] Blood Pressure [Ri ght Upper Arm] Pulse Oximetry 94 Oxygen Delivery Me thod Room Air Hospitalist - H&P: Result Labs Labs: Short CBC 03/19/22 03/20/22 Range/Units 23:10 04:20 WBC 6.44 3.88 L (4.50-11.00) K/uL Hgb 16.8 14.3 (13.5-17.5) gm/dL Hct 50.0 44.1 (37.0-53.0) % Plt Count 380 306 (140-440) K/uL BMP 03/19/22 03/20/22 23:10 04:20 Sodium 140 141 Potassium 4.7 4.4 Chloride 102 103 Carbon Dioxide 19 L 25 BUN 18 18 Creatinine 1.2 1.0 Glucose 210 H 147 H Calcium 10.0 8.4 Liver Function 03/19/22 Range/Units 23:10 Total Bilirubin 1.1 (0.1-1.5) mg/dL AST 38 H (12-35) U/L ALT 39 (4-50) U/L Alkaline Phosphatase 93 (40-150) U/L Albumin 5.6 H (3.3-5.0) g/dL Imaging CT scan - abdomen: Radiologist's impression: Small bowel obstruction with transition point at the anastomosis site Assessment and Plan Assessment and plan (1) Partial small bowel obstruction: Status: Acute Plan Assessment: Lawson Whitley is a 46 year old male with past medical history of Type II DM, HLD, Chronic back pain, fibromyalgia, hx of ventral hernia repair, hx of small bowel resection presenting for abdominal pain. In the ED CT AP showed Small bowel obstruction with transition point at the anastomosis site. 1. SBO, hx of Small bowel resection, ventral hernia repair; appears to be resolving with conservative mgmt 2. Hx of GERD 3. Hx of Type II DM 4. Hx of chronic back pain 5. Hx of Fibromyalgia 6. Hx of HLD 7. 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
[2022-03-20] MEDS: 0.9 % SODIUM CHLORIDE 1000 ml 1,000 ML 100 ML IV (11:31)
[2022-03-20] MEDS: ACETAMINOPHEN 325 MG TABLET 650 MG PO ×2 (11:31→23:52)
[2022-03-20 14:18] LABS: H pylori Ag Stool* Negative (Negative)
--- NOTE | 2022-03-20 18:34 | PC.NURSE ---
Patient receiving Dilaudid PRN for 7/10 pain in his abdomen. Pt c/o nausea, zofran given with relief. Taking ice chips. On assessment, abdomen is distended and tender. Bowel sounds hypoactive. Pt has not had a bowel movement since 0500. Up for walk in the [place] x2. Pt complains of a headache - tyenol given per the standing orders with little to no relief.
[2022-03-20] MEDS: PROCHLORPERAZINE 5 MG/ML VIAL 10 MG IV (21:00)
[2022-03-20] MEDS: METOPROLOL SUCCINATE (XL) 25 MG TAB PO (21:00)
[2022-03-21] MEDS: 0.9 % SODIUM CHLORIDE 1000 ml 1,000 ML 100 ML IV (02:14)
[2022-03-21] MEDS: HYDROmorphone 0.5 mg/0.5 ml inj IVP ×4 (02:15→12:55)
[2022-03-21 02:22] VITALS: BP 96/64; PULSE 88; RESP 16; TEMP 36.6; O2SAT 94
--- NOTE | 2022-03-21 04:47 | PC.NURSE ---
Pt rested well this night. Pain rated always rated at a 7/10. No emesis. Nausea controlled with meds. Up IND. NPO w/ Ice chips. Cooperative.
[2022-03-21] MEDS: PROCHLORPERAZINE 5 MG/ML VIAL 10 MG IV (05:42)
[2022-03-21 07:01] LABS: Eosinophils Percent Auto 2.4 % (0.0-7.0); Hematocrit 38.9 % (37.0-53.0); Hemoglobin* 12.6 gm/dL (13.5-17.5); Immature Granulocytes Abs Auto 0.01 K/uL (0.00-0.30); Lymphocytes Percent Auto 45.1 % (20-44); Mean Corpuscular HGB Conc 32 gm/dL (32-36); Mean Corpuscular Hemoglobin 32 pg (26-34); Mean Corpuscular Volume 99 fL (80-100); Monocytes Percent Auto 7.9 % (0.0-11.0); Neutrophils Percent Auto 44.3 % (42.0-72.0); Platelet Count* 257 K/uL (140-440); RDW Coefficient of Variation % 15.4 % (11.5-15.5); Red Blood Count 3.95 m/uL (4.30-5.90); White Blood Count* 3.79 K/uL (4.50-11.00)
[2022-03-21 07:19] LABS: Slide Review Reflex No
[2022-03-21 07:21] LABS: Chloride* 105 mmol/L (96-114); Sodium* 140 mmol/L (135-149)
[2022-03-21 07:24] LABS: Blood Urea Nitrogen* 12 mg/dL (5-24); Carbon Dioxide* 23 mmol/L (20-32); Creatinine* 0.8 mg/dL (0.5-1.5); Est. Creatinine Clearance* 130.39; Estimated Glomerular Filt Rate 111 ml/min; Glucose* 99 mg/dL (60-115)
[2022-03-21 07:25] LABS: Calcium* 7.9 mg/dL (8.4-10.6)
--- NOTE | 2022-03-21 08:41 | PM.GSPN ---
Subjective Subjective Date Seen: 03/21/22 Interval history: The patient feels a bit better today. Denies any further nausea or vomiting. He has continued to have bowel movements which he states are unchanged. He describes him as diarrhea. He feels as though his pain is slightly improved. Exam Narrative: Exam Narrative: General: No acute distress Abdomen: Soft. Significantly less tender than yesterday. Hypoactive bowel sounds noted Const: Vital Signs, click to edit/add: Vital Signs - 24 hr 03/20/22 11:00 03/20/22 15:00 03/20/22 15:00 Temperature 97.5 F L 97.8 F Pulse Rate [Right Radial] 89 82 78 Respiratory Rate 18 18 18 Blood Pressure [Le ft Arm] 121/85 118/84 Pulse Oximetry 93 94 Oxygen Delivery Me thod Room Air Room Air 03/20/22 19:00 03/20/22 22:49 03/20/22 22:51 Temperature 97.6 F 97.9 F Pulse Rate [Right Radial] 85 94 94 Respiratory Rate 16 18 18 Blood Pressure [Le ft Arm] 108/75 124/79 Pulse Oximetry 95 94 Oxygen Delivery Me thod Room Air Room Air 03/20/22 23:52 03/21/22 02:22 Temperature 97.9 F 97.9 F Pulse Rate [Right Radial] 88 Respiratory Rate 16 Blood Pressure [Le ft Arm] 96/64 Pulse Oximetry 94 Oxygen Delivery Me thod Room Air Labs/Imaging Labs Labs: Electrolytes within normal limits. White blood cell count is 3.7 without a left shift. Hemoglobin is 12.5. Progress Note: A&P Assessment and plan (1) Partial small bowel obstruction: Status: Acute Assessment and Plan: The patient is a 46-year-old male with a complex history of possible inflammatory bowel disease status post ileocecectomy now with possible partial small-bowel obstruction at the anastomosis. Since he has always had antegrade bowel function, we will continue with NPO status and since is nausea has improved if he would like later he could start increasing his intake to clears. We have also check stool cultures given his history of sulfur smelling belching. H pylori checked yesterday was negative. If obstruction resolves, I recommend outpatient follow-up with GI for possible scope to evaluate the anastomosis/look for ileitis.
[2022-03-21] MEDS: METOPROLOL SUCCINATE (XL) 25 MG TAB PO ×2 (08:45→21:13)
[2022-03-21] MEDS: PANTOPRAZOLE SODIUM 40 MG INJ IVP ×2 (08:48→21:13)
[2022-03-21] MEDS: 0.9 % SODIUM CHLORIDE 1000 ml 1,000 ML 75 ML IV ×2 (10:44→18:59)
[2022-03-21 10:48] LABS: CDIFFEPI 027 PRESUMPTIVE NEGATIVE (Negative)
[2022-03-21 11:00] VITALS: BP 137/88; PULSE 81; RESP 11; TEMP 37; O2SAT 94
[2022-03-21 11:09] LABS: C.Difficile POSITIVE (Negative)
--- NOTE | 2022-03-21 11:11 | PC.NURSE ---
Lab called with C.Diff positive. Dr. Moon aware. See orders.
--- NOTE | 2022-03-21 12:50 | PM.IMPN1 ---
Progress Note: A&P Assessment and plan (1) Partial small bowel obstruction: Status: Acute Plan Assessment:?Lawson Whitley is a 46 year old male with past medical history of Type II DM, HLD, Chronic back pain, fibromyalgia, hx of ventral hernia repair, hx of small bowel resection presenting for abdominal pain.? In the ED CT AP showed Small bowel obstruction with transition point at the anastomosis site. 1. SBO, hx of Small bowel resection, ventral hernia repair; resolving with conservative mgmt 2. Hx of GERD 3. Hx of Type II DM 4. Hx of chronic back pain 5. Hx of Fibromyalgia 6. Hx of HLD 7. Hx of HTN 8. 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 meds while npo Plan 03/21 -clear liquid diet; then full liquid diet for dinner; per surgery ok to begin slowly advancing diet -PO pain regimen -home meds resumed -start PO vanco for c diff -dispo; anticipated discharge tomorrow to home, barriers to discharge pain control and tolerating diet Code-Full DVT ppx-scd Time Spent With Patient Total time spent: 25 minutes Subjective Date Seen: 03/21/22 Interval history: patient noted to have c diff started on oral vanco denies nause, vomiting, abdominal pain stable ambulating Exam Narrative: Exam Narrative: Gen: no acute distress HEENT: NCAT EOMI MMM CV: RRR normal s1 s2 lungs; ctab abdo: soft, nt, nd Neuro: AOX3, nonfocal screening exam Const: Vital Signs, click to edit/add: Vital Signs - 24 hr 03/20/22 15:00 03/20/22 15:00 03/20/22 19:00 Temperature 97.8 F 97.6 F Pulse Rate [Right Radial] 82 78 85 Respiratory Rate 18 18 16 Blood Pressure [Le ft Arm] 118/84 108/75 Pulse Oximetry 94 95 Oxygen Delivery Me thod Room Air Room Air 03/20/22 22:49 03/20/22 22:51 03/20/22 23:52 Temperature 97.9 F 97.9 F Pulse Rate [Right Radial] 94 94 Respiratory Rate 18 18 Blood Pressure [Le ft Arm] 124/79 Pulse Oximetry 94 Oxygen Delivery Me thod Room Air 03/21/22 02:22 03/21/22 11:00 Temperature 97.9 F 98.6 F Pulse Rate [Right Radial] 88 81 Respiratory Rate 16 11 L Blood Pressure [Le ft Arm] 96/64 137/88 Pulse Oximetry 94 94 Oxygen Delivery Me thod Room Air Room Air Labs Labs: Laboratory Results - last 24 hr 03/20/22 03/20/22 03/21/22 12:45 20:24 05:55 WBC 3.79 L RBC 3.95 L Hgb 12.6 L Hct 38.9 MCV 99 MCH 32 MCHC 32 RDW Coeff of Tiffanie 15.4 Plt Count 257 Neut % (Auto) 44.3 Lymph % (Auto) 45.1 H Faulkner % (Auto) 7.9 Eos % (Auto) 2.4 Baso % (Auto) 0.0 Neut # (Auto) 1.70 Lymph # (Auto) 1.70 Faulkner # (Auto) 0.30 Eos # (Auto) 0.10 Baso # (Auto) 0.00 Abs Immat Gran (auto) 0.01 Sodium Potassium Chloride Carbon Dioxide BUN Creatinine Estimated Creat Clear Estimated GFR Glucose Calcium Stl C.difficile Tox PCR POSITIVE A* St C. diff Tox Epid 027 PRESUMPTIVE NEGATIVE Stool H. pylori Ag Negative 03/21/22 05:55 WBC RBC Hgb Hct MCV MCH MCHC RDW Coeff of Tiffanie Plt Count Neut % (Auto) Lymph % (Auto) Faulkner % (Auto) Eos % (Auto) Baso % (Auto) Neut # (Auto) Lymph # (Auto) Faulkner # (Auto) Eos # (Auto) Baso # (Auto) Abs Immat Gran (auto) Sodium 140 Potassium 4.0 Chloride 105 Carbon Dioxide 23 BUN 12 Creatinine 0.8 Estimated Creat Clear 130.39 Estimated GFR 111 Glucose 99 Calcium 7.9 L Stl C.difficile Tox PCR St C. diff Tox Epid 027 Stool H. pylori Ag
[2022-03-21] MEDS: VANCOMYCIN 125 MG CAPSULE PO ×3 (13:20→21:13)
[2022-03-21 15:00] VITALS: BP 123/76; PULSE 78; RESP 18; TEMP 36.9; O2SAT 96
--- NOTE | 2022-03-21 15:56 | PC.NURSE ---
shift [id number] pt this shift rating pain 01/30, treated with Dilaudid, see eMAR. Had medium soft BM. C.diff came back positive, contact precautions in place. pt educated on what is C.diff, how it can be contracted, and how it is eliminated with abx. Moved to clear liquids at lunch and tolerating well. Independent in room and walking halls x 2. pt calm and cooperative with cares.
[2022-03-21] MEDS: OXYCODONE 5 MG TABLET PO ×2 (16:38→21:14)
[2022-03-21] MEDS: ACETAMINOPHEN 325 MG TABLET 650 MG PO (16:39)
[2022-03-21 19:00] VITALS: BP 120/68; PULSE 74; RESP 18; TEMP 36.7; O2SAT 95
[2022-03-21] MEDS: PREGABALIN 100 MG CAPSULE PO (21:13)
[2022-03-21 23:00] VITALS: BP 127/80; PULSE 76; RESP 20; TEMP 36.1; O2SAT 96
[2022-03-22] MEDS: ACETAMINOPHEN 325 MG TABLET 650 MG PO ×2 (00:32→09:08)
[2022-03-22] MEDS: OXYCODONE 5 MG TABLET PO ×3 (01:09→11:50)
[2022-03-22] MEDS: HYDROmorphone 0.5 mg/0.5 ml inj IVP (02:10)
[2022-03-22 03:00] VITALS: BP 122/78; PULSE 77; RESP 20; TEMP 36.1; O2SAT 95
--- NOTE | 2022-03-22 05:53 | PC.NURSE ---
Shift Note : Pt pleasant and cooperative, VSS, afebrile, LS clear, BS active. Continued sharp pain in RUQ, not well controlled on current medication regimen, see eMAR for medication administration. Pt up ad vance in room and walked hallway for pain control with appropriate PPE in place. Pt offered ice pack and aqua k pad for pain control and comfort as well, Pt declined. No loose stools overnight. Pt requesting d/c of maintenance fluids d/t feeling puffy. dictated in note ok to advance diet to full liquid, Pt stated that he ordered supper on the previous shift from the fulls menu with no nausea or added discomfort noted.
[2022-03-22 07:18] LABS: Basophils Percent Auto 0.3 % (0.0-3.0); Eosinophils Percent Auto 2.2 % (0.0-7.0); Hemoglobin* 12.2 gm/dL (13.5-17.5); Lymphocytes Percent Auto 43.1 % (20-44); Mean Corpuscular HGB Conc 33 gm/dL (32-36); Mean Corpuscular Hemoglobin 32 pg (26-34); Mean Corpuscular Volume 96 fL (80-100); Monocytes Percent Auto 9.2 % (0.0-11.0); Neutrophils Percent Auto 45.2 % (42.0-72.0); Platelet Count* 266 K/uL (140-440); RDW Coefficient of Variation % 14.7 % (11.5-15.5); Red Blood Count 3.87 m/uL (4.30-5.90); White Blood Count* 3.57 K/uL (4.50-11.00)
[2022-03-22 07:22] LABS: Slide Review Reflex No
[2022-03-22 07:31] LABS: Chloride* 105 mmol/L (96-114); Sodium* 140 mmol/L (135-149)
[2022-03-22 07:32] LABS: Potassium* 3.5 mmol/L (3.6-5.1)
[2022-03-22 07:34] LABS: Carbon Dioxide* 24 mmol/L (20-32); Creatinine* 0.8 mg/dL (0.5-1.5); Est. Creatinine Clearance* 130.39; Estimated Glomerular Filt Rate 111 ml/min
[2022-03-22 07:35] LABS: Blood Urea Nitrogen* 8 mg/dL (5-24); Calcium* 8.7 mg/dL (8.4-10.6); Glucose* 123 mg/dL (60-115)
[2022-03-22 08:20] VITALS: BP 135/88; PULSE 68; RESP 16; TEMP 36.6; O2SAT 96
[2022-03-22] MEDS: VANCOMYCIN 125 MG CAPSULE PO ×2 (09:07→12:27)
[2022-03-22] MEDS: buPROPion HCL 100 MG TAB.SR.12H PO (09:07)
[2022-03-22] MEDS: PREGABALIN 100 MG CAPSULE PO (09:08)
[2022-03-22] MEDS: METOPROLOL SUCCINATE (XL) 25 MG TAB PO (09:08)
[2022-03-22] MEDS: OMEPRAZOLE 20 MG CAPSULE DR PO (09:44)
[2022-03-22 11:53] VITALS: BP 123/77; PULSE 73; RESP 16; TEMP 36.5; O2SAT 98
--- NOTE | 2022-03-22 12:51 | PM.GSPN ---
Subjective Subjective Date Seen: 03/22/22 Interval history: Lawson was diagnosed with C diff today. He has been tolerating a regular diet. Exam Narrative: Exam Narrative: General: No acute distress Const: Vital Signs, click to edit/add: Vital Signs - 24 hr 03/21/22 15:00 03/21/22 15:00 03/21/22 19:00 Temperature 98.4 F 98.1 F Pulse Rate [Right Radial] 78 78 74 Respiratory Rate 18 18 18 Blood Pressure [Le ft Arm] 123/76 120/68 Pulse Oximetry 96 95 Oxygen Delivery Me thod Room Air Room Air 03/21/22 23:00 03/21/22 23:00 03/22/22 03:00 Temperature 96.9 F L 96.9 F L Pulse Rate [Right Radial] 76 76 77 Respiratory Rate 20 20 20 Blood Pressure [Le ft Arm] 127/80 122/78 Pulse Oximetry 96 95 Oxygen Delivery Me thod Room Air Room Air 03/22/22 08:20 03/22/22 11:53 Temperature 97.9 F 97.7 F Pulse Rate [Right Radial] 68 73 Respiratory Rate 16 16 Blood Pressure [Le ft Arm] 135/88 123/77 Pulse Oximetry 96 98 Oxygen Delivery Me thod Room Air Room Air Progress Note: A&P Assessment and plan (1) Colitis: Status: Acute (2) C. difficile diarrhea: Status: Acute Plan The patient is a 46-year-old male with a longstanding history of bowel obstructions now 3 months status post ileocecal ectomy with concern for obstruction on CT, however with perfuse diarrhea. Workup reveals C diff colitis. He is doing much better and is on appropriate treatment. I reassured him that well he could have possible obstruction, it seems most likely that the symptoms were secondary to C diff. if he returns with obstructive-type symptoms I would recommend colonoscopy to evaluate the anastomosis, otherwise he can follow-up p.r.n. with his primary care doctor
[2022-03-22 13:10] VITALS: BMI 33.2
--- NOTE | 2022-03-22 13:50 | PC.NURSE ---
Patient discharged. PIV was taken out and catheter intact. VS within normal limits. Lower right abdominal pain is well controlled with PO medication. Had 1 loose stool today and that was all. Being treated for Cdiff. Has f/u with PCP scheduled. Tolerating a soft diet. Pathology Tech met with patient prior to discharge. Voiding without difficulty. Lung sounds clear. Left via wheelchair exit with .
--- NOTE | 2022-03-29 07:29 | P.DS_ITS ---
DS: Providers Provider Time Seen by Provider: 11:00 Date Seen: 03/22/22 Date of admission: 03/20/22 10:43 Primary care physician: Mark Gallegos MD Admitting Clinician: Wolf Alberts MD Consults: 03/22/22 12:23 Consult to Nutrition [CONS] Routine Comment: Reason for consult:: Miscellaneous Comment: recurrent partial small bowel obstruction, C Diff colitis Attending Physician on discharge: Jean Paul Cruz MD Date of Discharge: 03/22/22 DS: Diagnosis Discharge Diagnosis (1) Partial small bowel obstruction: Status: Acute (2) C. difficile diarrhea: Status: Acute DS: Summary Hospital Course Hospital Course: 46 year old man with past medical history of Type II DM, HLD, Chronic back pain, fibromyalgia, hx of ventral hernia repair, hx of small bowel resection presenting for abdominal pain.? In the ED CT AP showed Small bowel obstruction with transition point at the anastomosis site. Pertinent PMH: 1. SBO, hx of Small bowel resection, ventral hernia repair; resolving with conservative mgmt 2. Hx of GERD 3. Hx of Type II DM 4. Hx of chronic back pain 5. Hx of Fibromyalgia 6. Hx of HLD 7. Hx of HTN 8. C diff diarrhea He was admitted to inpatient care. Treated with conservative management, in cluding NPO, IVF, pain control. We increase his PPI to BID. Surgery consulted; diet advancement based on surgery recommendations. H pylori testing and stool cx ordered by surgery team, results pending at time of discharge. However, after developing diarrhea stool for C Diff was positive and we initiated oral vancomycin. His home meds were resumed. He tolerated an advancing diet and activities. Status at Discharge Functional status at discharge: independent ambulation Overall status at discharge: patient is back to baseline Time Spent with Patient Time attestation: Total time spent providing and/or coordinating discharge services: Time spent: Greater than 30 minutes Exam Narrative: Exam Narrative: Gen: no acute distress HEENT: NCAT EOMI MMM CV: RRR normal s1 s2 lungs; ctab abdo: soft, nt, nd Neuro: AOX3, nonfocal screening exam, independent will all activities Const: Documenting provider has reviewed patient's vital signs: yes DS: Data Imaging CT scan - abdomen: Attestation: I have reviewed the pertinent imaging results. Radiologist's impression: High-grade partial small-bowel obstruction with fluid-filled colon representing a diarrheal state. Discharge Plan Discharge Disposition: Home, Self-Care Date of Admission: 03/20/22 10:43 Attending Provider on Discharge: Jean Paul Cruz Primary Care Provider: Mark Gallegos Condition: Improved Anticipated Discharge Date/Time: 03/22/22 15:00 Discharge Medications: New acetaminophen 325 mg Tablet 650 mg PO Q6H PRN14 Days Qty: 100 0RF vancomycin 125 mg Capsule 125 mg PO QID Qty: 40 0RF ondansetron 4 mg tablet,disintegrating 4 mg PO Q6H PRN (Reason: nausea and vomiting) Qty: 10 1RF oxycodone 5 mg tablet 5 mg PO Q8H PRN (Reason: pain) Qty: 14 0RF Continued cyclobenzaprine 5 mg tablet 5 mg PO BID PRN atorvastatin 20 mg tablet 20 mg PO HS lorazepam 0.5 mg tablet 0.5 mg PO BID PRN omeprazole 40 mg capsule,delayed release(DR/EC) 40 mg PO DAILY gemfibrozil 600 mg tablet 600 mg PO BID glipizide 10 mg tablet extended release 24hr 10 mg PO DAILY Medical Cannabis PO .HS methocarbamol 500 mg tablet 750 mg PO QID trazodone 50 mg tablet 50 mg PO HS bupropion HCl 100 mg tablet sustained-release 12 hr 100 mg PO DAILY sitagliptin 100 mg tablet 100 mg PO DAILY eszopiclone 3 mg tablet 3 mg PO HS PRN pregabalin 100 mg capsule 100 mg PO BID Qty: 60 5RF metoprolol succinate 25 mg tablet extended release 24 hr 25 mg PO BID Qty: 180 3RF Discharge Orders: Discharge Order (Routine); Ordered 03/22/22 Ordered By: Jean Paul Cruz Patient Education: Acetaminophen (By mouth), Oxycodone, Rapid Release (By mouth), Ondansetron (By mouth), Vancomycin (By mouth), C. Diff (Clostridioides Difficile) Infection (GEN), Bowel Obstruction (GEN) Activity Level: No Restrictions and Activity as Tolerated Discharge Diet: Regular and Diabetic Follow Up Appointments: Mark Gallegos MD [Primary Care Provider] - 03/29/22 9:00 am (Consider rep eat colonoscopy.) Forms: [facility] Info Instructions
== END 2022-03-22 13:50 | disposition home or self-care (01) | DRG 248 ==
LOC: ED 03-20 01:21 → MEDSURG 03-20 02:06
PROVIDERS: Family Medicine; Surgery; Admitting Provider Family Medicine; Emergency Provider Family Medicine; PCP Family Medicine; Visit Provider Hospitalist
DX: A04.72 Enterocolitis due to Clostridium difficile, not specified as recurrent (principal); K56.600 Partial intestinal obstruction, unspecified as to cause; E11.9 Type 2 diabetes mellitus without complications; I10 Essential (primary) hypertension; K50.00 Crohn's disease of small intestine without complications; F32.A Depression, unspecified; K21.9 Gastro-esophageal reflux disease without esophagitis; M51.16 Intervertebral disc disorders with radiculopathy, lumbar region; E78.5 Hyperlipidemia, unspecified; M79.7 Fibromyalgia; G89.29 Other chronic pain; M54.9 Dorsalgia, unspecified; G47.00 Insomnia, unspecified
CPT/HCPCS: 36415; 74160; 80048; 80053; 82803; 82947; 83605; 83615; 83690; 83735; 85025; 86140; 87040; 87045; 87046; 87338; 87427; 87493; 87635; 99284; A9270; C9113; J0780; J1170; J2405; J7030; J7120; Q9967

== ENCOUNTER 2022-04-25 11:07 | Outpatient (CLI) | payer BC, SELFPAY ==
--- OUTSIDE RECORDS SUMMARY | 2022-04-25 11:09 | XMS_ITS | Encounter Summary ---
:1975 Author Organization [facility] Address [address] [place] [address] Care Team Providers Name Role Phone Elsewhere, Pcp Primary Care Provider Unavailable Encounter Details Date Type Department Care Team Description 09/22/2021 Clinical Communication Division of Wendy, Gastroenterology in Ynes Tejeda M.D. [place], [place] [address] [facility] [address] [place] [phone] Social History Tobacco Use Types Packs/Day Years Used Date Smoking Tobacco: Never Smokeless Tobacco: Never Alcohol Use Standard Drinks/Week Comments Not Currently 0 (1 standard drink = 0.6 oz pure alcoho l) Alcohol Habits Answer Date Recorded How often do you have a drink containing alcohol? Never 09/15/2021 How many drinks containing alcohol do you have on a typical Not asked day when you are drinking? How often do you have six or more drinks on one occasion? No t asked Comment: Not asked Social Isolation Answer Date Recorded In a typical week, how many times do you More than three jadiel es a week 09/15/2021 talk on the phone with family, friends, or neighbors? How often do you get together with friends Once a week 09/15/2021 or relatives? How often do you attend religious or More than 4 times per year 09/15/2021 advent services? Do you belong to any clubs or Yes 09/15/2021 organizations such as religious groups, unions, fraternal or athletic groups, or school groups? How often do you attend meetings of the More than 4 times pe r year 09/15/2021 clubs or organizations you belong to? Are you now , , , 09/15/2021 , never or living with a partner? Physical Activity Answer Date Recorded On average, how many days per week do you engage in moderate to 2 days 09/15/2021 strenuous exercise (like walking fast, running, jogging, dancing, swimming, biking, or other activities that cause a light or heavy sweat)? On average, how many minutes do you engage in exercise at is 120 min 09/15/2021 level? Stress Answer Date Recorded Do you feel stress - tense, restless, nervous, or anxious, o r Very much 09/15/2021 unable to sleep at night because your mind is troubled all the time - these days? Financial Resource Strain Answer Date Recorded How hard is it for you to pay for the very basics like Not v linda hard 09/15/2021 food, housing, medical care, and heating? Intimate Partner Violence Answer Date Recorded Within the last year, have you been afraid of your partner o r No 09/15/2021 ex-partner? Within the last year, have you been humiliated or emotionall y Yes 09/15/2021 abused in other ways by your partner or ex-partner? Within the last year, have you been kicked, hit, slapped, or No 09/15/2021 otherwise physically hurt by your partner or ex-partner? Within the last year, have you been raped or forced to have any No 09/15/2021 kind of sexual activity by your partner or ex-partner? Food Insecurity Answer Date Recorded Within the past 12 months, you worried that your food would Never true 09/15/2021 run out before you got money to buy more. Within the past 12 months, the food you bought just didn't N ever true 09/15/2021 last and you didn't have money to get more. Transportation Needs Answer Date Recorded In the past 12 months, has lack of transportation kept you f rom No 09/15/2021 medical appointments or from getting medications? In the past 12 months, has lack of transportation kept you f rom No 09/15/2021 meetings, work, or getting things needed for daily living? Housing Stability Answer Date Recorded In the last 12 months, was there a time when you were not ab le Yes 09/15/2021 to pay the mortgage or rent on time? In the last 12 months, how many places have you lived? 1 09/15/2021 In the last 12 months, was there a time when you did not hav e a No 09/15/[address] to sleep or slept in a intermediate (including now)? Education Answer Date Recorded What is the highest level of school Associate degree: occupa timelody, 09/15/2021 you have completed or the highest technical, or vocational p dominic degree you have received? 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 This result does not rule out COVID-19 in the patient, as the sensitivity of the test depends o n the timing of the specimen collection and the quality of the specim en. Result should be correlated with patient's history and clinical presentat ion. ----ADDITIONAL INFORMATION---- This molecular amplification test was pe rformed using the Aptima SARS-CoV-2 assay ([employer] on the [employer] [employer] tem under emergency use authorization (EUA) by the U.S. Food and Drug Administ ration. Fact sheets for this EUA assay can be fo und at the following links: For Healthcare Providers: https://www.fd a.gov/media/242262/download For Patients: https://www.fda.gov/media/ 339482/download Specimen Anatomical Collection Method Collection Time Receive d Time (Source) Location / / Volume Laterality Varies 10/10/2021 10:51 10/10/2021 5:20 (Nasopharynx) AM CDT PM CDT Ynes Nguyen M.D. LAB MICROBIOLOGY - GENERAL O RDERABLES Performing Organization Address City/State/ZIP Code Phon e Number [facility] [address] [place] [address] [place] [address] System in [place] [address] [facility] documented in this encounter Visit Diagnoses Diagnosis Preprocedural Lab Exam - Primary documented in this encounter Care Teams Public Address Systems Mechanic Relationship Specialty Start Date End Date Elsewhere, Pcp PCP - General Internal Medicine 09/18/21 documented as of this encounter
--- OUTSIDE RECORDS SUMMARY | 2022-04-25 11:09 | XMS_ITS | Clinical Summary ---
:1975 Author Organization [employer] [facility] [employer] [facility] [place] [address] Care Team Providers Name Role Phone Mark Gallegos MD Primary Care Provider Allergies No known active allergies Medications Medication Sig Dispensed Refills Start Date End Date Status atorvastatin (LIPITOR) Take 20 mg by 0 Active 20 mg tablet mouth at bedtime. gemfibroziL (LOPID) 600 Take 600 mg by 0 Active mg tablet mouth 2 times daily before meals. LORazepam (ATIVAN) 0.5 Take 1 mg by 0 Active mg tab mouth at bedtime if needed. metoprolol succinate Take 25 mg by 0 Active (TOPROL XL) 25 mg mouth 2 times Sustained-Release tablet daily. pregabalin (LYRICA) 100 Take 100 mg by 0 Active mg capsuleIndications: mouth 2 times fibromyalgia daily. SITagliptin (JANUVIA) Take 100 mg by 0 Active 100 mg tablet mouth once daily. omeprazole (PRILOSEC) 40 Take 40 mg by 0 Active mg Delayed-Release mouth once capsule daily. cyclobenzaprine Take 5-10 mg by 0 10/28/2020 Active (FLEXERIL) 10 mg tablet mouth 3 times daily if needed. glipiZIDE Take 10 mg by 0 09/29/2021 Activ e extended-release mouth once (GLUCOTROL XL) 10 mg daily. Extended-Release tablet buPROPion (WELLBUTRIN Take 100 mg by 0 10/21/2021 Active SR) 100 mg mouth once Sustained-Release tablet daily. eszopiclone (LUNESTA) 3 Take 3 mg by 0 Active mg tablet mouth at bedtime if needed for Sleep. traZODone (DESYREL) 50 Take 50 mg by 0 Active mg tablet mouth at bedtime if needed for Sleep. methocarbamoL (ROBAXIN) Take 1 Tablet 30 Tablet 0 12/08/2021 Active 750 mg (750 mg) by tabletIndications: H/O mouth 4 times small bowel obstruction daily. oxyCODONE (ROXICODONE) 5 Take 1-2 15 Tablet 0 12/08/2021 Active mg immediate release Tablets (5-10 tabletIndications: H/O mg) by mouth small bowel obstruction every 4 hours if needed for Pain (For severe pain). sennosides (Senna) 8.6 Take 2 Tablets 100 Tablet 0 12/08/2021 Active mg tabletIndications: (17.2 mg) by H/O small bowel mouth 2 times obstruction daily. Active Problems Problem Noted Date Elevated creatine kinase 10/25/2021 GERD (gastroesophageal reflux disease) 10/24/2021 Type 2 diabetes mellitus 10/24/2021 Hyperlipidemia 10/24/2021 Hypertension 10/24/2021 H/O: Small bowel stricture 10/24/2021 Depression 10/24/2021 Abdominal pain 10/24/2021 H/O: Small bowel obstruction, recurrent 10/24/2021 Crohn's disease of both small and large intestine 07/25 Resolved Problems Problem Noted Date Resolved Date Personal history of other diseases of the digestive system 0 09/06/2021 10/24/2021 Terminal ileitis 08/20/2015 10/24/2021 Immunizations Name Administration Dates Next Due Influenza A (H1N1), Inactivated (Age >=3 Years) 07/09/2009 Influenza, IIV3 (Age >=3 years) 05/06/2016, 05/06/2013 MMR 07/01/1994 Td, Preservative Free (age >= 7 Years) 08/04/2015 Family History Medical History Relation Name Comments Skin cancer Father Relation Name Status Comments Father Social History Tobacco Use Types Packs/Day Years Used Date Never Smoker Smokeless Tobacco: Never Used Tobacco Cessation: Counseling Given: Yes Alcohol Use Standard Drinks/Week Comments Yes 0 (1 standard drink = 0.6 oz pure alcoho l) rarely - maybe 2 monthly Alcohol Habits Answer Date Recorded How often do you have a drink containing Not asked alcohol? How many drinks containing alcohol do you have Not asked on a typical day when you are drinking? How often do you have six or more drinks on Not asked one occasion? Comment: rarely - maybe 2 monthly 05/11/2016 Sex Assigned at Date Recorded Not on file Obstetrics History Last Filed Vital Signs Vital Sign Reading Time Taken Comments Blood Pressure 121/70 12/10/2021 9:30 AM CDT Pulse 78 12/10/2021 9:30 AM CDT Temperature 36.3 ??C (97.3 ??F) 12/10/2021 9:30 AM CDT Respiratory Rate 18 12/08/2021 5:00 PM CDT Oxygen Saturation 97% 12/10/2021 9:30 AM CDT room ai r Inhaled Oxygen Concentration - - Weight 118.2 kg (260 lb 9.6 oz) 11/26/2021 9:10 AM CDT Height 185.4 cm (6' 1) 11/26/2021 9:10 AM CDT Body Mass Index 34.38 11/26/2021 9:10 AM CDT Plan of Treatment Health Maintenance Due Date Last Done Comments Tdap 1986 Hepatitis C screening for age 18-79 1993 Depression screening for age 12+ 05/11/2017 05/11/2016 BMI (ht and wt on same day) for age 0803/02/2019 03/02/2018, 05/11/2016 18+ Colonoscopy through age 75 2020 Lipids for age 45-75 2020 COVID-19 vaccine series (3 - Booster 06/09/2021 01/07/2021, 11/13/2020 for Pfizer series) Influenza for age 9-49 03/24/2022 05/06/2016, 05/06/2013, 07/09/2009 Tetanus booster 08/04/2025 08/04/2015 Results Not on filefrom Last 3 Months Insurance Payer Benefit Plan / Subscriber ID Effective Dates Phone Addre ss Type Group BLUE CROSS BLUE CROSS OF [id number] 2021-Present [address] [address] [place] [address] Advance Directives Latest Code Status on File Code Status Date Activated Date Inactivated Comments Full Code 11/26/2021 8:41 AM 12/08/2021 8:14 PM Code Status Discussion: Reviewed Preferences Full Code 10/24/2021 10:23 PM 10/29/2021 4:24 PM Code Status Discussion: Discussed Care Teams Staff Command And Control Officer Relationship Specialty Start Date End Date Mark Gallegos MD PCP - General Family Practice 07/30/[address] [place] [id number]
--- OUTSIDE RECORDS SUMMARY | 2022-04-25 11:09 | XMS_ITS | Encounter Summary ---
:1975 Author Organization [facility] Address [address] [place] [address] Care Team Providers Name Role Phone Elsewhere, Pcp Primary Care Provider Unavailable Encounter Details Date Type Department Care Team Description 10/13/2021 Anesthesia Event Division of Gastroenterology Wolfgang Pena APRN, CLIFF MNIleana [address] [place] [phone] in [facility] Zay Phoenix M.D. [address] [place] [phone] [address] [place] [phone] Anesthesia Record Procedure Summary Procedure Name Responsible Anesthesia Start Anesthesia Stop Time Anesthesiologist Time DOUBLE BALLOON Wolfgang James APRN, 10/13/21 0807 2 0933 ASSISTED MADHAVI CORONADO ENDOSCOPY/COLONOSCO PY Events Date Time Event Comment 10/13/2021 0721 0807 An Start Machine/Equipmen t Checked Infection Precautions Foll owed Procedure/Site Verified NPO Sta tus Verified Supine Standard ASA Mon itors Applied 0812 An Induction 0813 An Intubation 0815 Turnover to Proceduralist 0827 Proc Start 0912 Proc Fin 0926 Turnover to ANE Staff 0926 Airway Removal Criteria Met 0926 Extubation/Airway Removed 0928 an stop data 0933 An End I completed my h andoff to the receiving staff during [facility] we 1. Identified the patient 2. Ident ified the responsible provider 3. Revi ewed the pertinent medical history 4. Discussed the surgical course 5. Review ed intra-op anesthesia management and i ssues during anesthesia 6. Set expectati ons for post-procedure period 7. Allowe d opportunity for questions and ac knowledgement of understanding. Name Total fentanyl injection 50 mcg/mL 150 mcg lidocaine 2% (mg) injection 100 mg propofol 10 mg/mL 200 mg propofol 10 mg/mL infusion 385.78 mg succinylcholine 20 mg/mL injection 140 mg phenylephrine 100 mcg/mL injection 100 mcg ondansetron 4 mg/2 mL injection 4 mg glucagon 1 mg/mL injection 0.5 mg Lactated Ringers Free Drip 700 mL Agents No agents on file. Blood No blood administrations on file. Lines, Drains, and Airways Type Details Placement Removal Peripheral IV Placement Date: 10/13/21; 10/13/21729 by Jaskaran , 10/13/21 103 by Placement Time: 729; Bernie Mojica Mal ia M RLouise Catheter Size: 20 G; Orientation: Left; Location: Hand; Site Prep: Chlorhexidine (Preferred); Technique: Anatomical landmarks; Inserted by: CLIFF; Insertion Attempts: 2; Removal Date: 10/13/21; Removal Time: 1033; Removal Reason: Patient discharged ETT Placement Date: 10/13/21; 10/13/21812 by 10/13 by Placement Time: 812 Wolfgang James, Wolfgang James, (created via procedure INSPECTOR SOLDERING, CLIFF, MNA INSPECTOR SOLDERING, JONNY A, MNA documentation); Type: Standard ETT; Cuffed: Yes; Location: Oral; Grade View: Grade 1; Placement Verification: Bilateral breath sounds, Positive ETCO2, Symmetrical chest wall movement; Removal Date: 10/13/21; Removal Time: 925 documented in this encounter Social History Tobacco Use Types Packs/Day Years [...] or relatives? How often do you attend zoroastrianism or More than 4 times per year 09/15/2021 anabaptism services? Do you belong to any clubs or Yes 09/15/2021 organizations such as zoroastrianism groups, unions, fraternal or athletic groups, or [...] place to sleep or slept in a chcf (including now)? Education Answer Date Recorded What is the highest level of school Associate degree: codey espinoza, 09/15/2021 you have completed or the highest technical, or vocational p dominic degree you have received? 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 documented as of this encounter OR Notes Anesthesia Postprocedure Evaluation - Wolfgang James APRN, CRNA, MNA - 10/13/2021 9:33 AM CDT Patient: Lawson Whitley Procedure Summary Date: 10/13/21 Room / Location: Division of Gastroenterology in [place], [place] Anesthesia Start: 806 Anesthesia Stop: 932 Procedure: DOUBLE BALLOON ASSISTED ENDOSCOPY/COLONOSCOPY Diagnosis: Obstruction Intestinal (HCC) Scheduled Providers: Wolfgang James APRN, CRNA, MNA Responsible Provider: Wolfgang James APRN, CRNA, MNA Anesthesia Type: general ASA Status: 2 Anesthesia Type: general Last vitals Vitals Value Taken Time BP 121/78 10/13/21 0930 Temp Pulse 101 10/13/21 0932 Resp 18 10/13/21 0932 SpO2 92 % 10/13/21 0932 Vitals shown include unvalidated device data. Please reference Vitals flowsheet for most recent vital signs. Anesthesia Post Evaluation Patient Disposition: dismissal Cardiovascular status: hemodynamics (HR & BP) acceptable Respiratory status: patent airway with spontaneous effort Temperature: normothermic Oxygen requirements: room air Level of consciousness: awake Pain score: pain adequately controlled and/or at baseline Post Op nausea/vomiting: none Hydration status: euvolemic Anesthesia Procedure Notes - Wolfgang James APRN, CRNA, MNA - 10/13/2021 8:23 AM CDTAssociated Order(s): Airway Airway Date/Time: 10/13/2021 8:13 AM Performed by: Wolfgang James APRN, CRNA, MNA Authorized by: Wolfgang James APRN, CRNA, MNA Patient location during procedure: OR / Procedure Area PROCEDURE DETAILS: Final airway type: video laryngoscope Laryngeal Manipulation: no Final best view of glottic structures - Cormack/Lehane Score: grade 1 ETT location: oral VL device: glide scope [place] scope blade size: 4 Adult ETT distance at teeth/gum: 24 Oral tube type: standard ETT Cuffed: yes Airway confirmation: bilateral breath sounds, positive ETCO2 and bilateral chest rise Other previous techniques attempted: none PRE PROCEDURE DETAILS: Pre evaluation for airway management: procedure Urgency: elective Preoxygenation: bag valve mask SEDATION / ANESTHESIA Anesthesia method: anesthesia POST PROCEDURE DETAILS: Procedure outcome: successful Airway event: no complications ATTESTATION STATEMENT Anesthesia Preprocedure Evaluation - Zay Hunter M.D. - 10/13/2021 7:20 AM CDT Preprocedure Anesthesia & H&P Assessment Procedure Summary Date/Time: 10/13/21 0745 Scheduled providers: Wolfgang James APRN, CRNA, MNA Procedure: DOUBLE BALLOON ASSISTED ENDOSCOPY/COLONOSCOPY Diagnosis: Obstruction Intestinal (HCC) [K56.609] Location: Division of Gastroenterology in [place], [place] Pertinent components of the patient's history including current problem list, medical history, surgical history, family history, social history, medications and allergies were reviewed. Present illnessand pre-op diagnosis were confirmed. The planned surgery / procedure was verified with the patient /legal guardian. The patient's general health condition remains unchanged RELEVANT COMORBID CONDITIONS No relevant active problems OBJECTIVE PHYSICAL EXAMINATION Airway (HEENT) Mallampati: II TM Distance: >3 FB Neck ROM: Full Mouth Opening: >3 cm Cardiovascular Rhythm: Regular Rate: Normal Cardiovascular Assessment: cardiovascular normal Functional Capacity: >4 METS Pulmonary Pulmonary Assessment: Clear General / Constitutional Constitutional Assessment: Overweight General State of Health:: healthy appearing and calm Neurological Neurologic Assessment:??alert and alert and oriented x 3 Dental Dental Assessment: dentition intact ASSESSMENT / PLAN ANESTHESIA PLAN ASA: 2 Anesthesia Plan: general Patient seen and allergies reviewed, anesthesia plan and risks discussed directly with patient /legal guardian or through an registered nurse first assistant. The use of blood products not discussed Approval to Proceed: approved for anesthesia documented in this encounter Plan of Treatment Not on filedocumented as of this encounter Procedures Procedure Name Priority Date/Time Associated Comments Diagnosis LDA ANE ENDOTRACHEAL Routine 10/13/2021 8:13 AM R esults for this AIRWAY CDT procedure are i n the results section. documented in this encounter Results LDA ANE ENDOTRACHEAL AIRWAY (10/13/2021 8:13 AM CDT) Narrative Wolfgang James APRN, CRNA, MNA - 8:13 AM CDT Wolfgang James APRN, CRNA, MNA ? 10/13/2021 ??8:23 AM Airway Date/Time: 10/13/2021 8:13 AM Performed by: Wolfgang James APRN, C RNA MNA Authorized by: Wolfgang James APRN, CRNA, MNA Patient location during procedure: OR / Procedure Area PROCEDURE DETAILS: Final airway type: video laryngoscope Laryngeal Manipulation: no ?? Final best view of glottic structures - Cormack/Lehane Score: grade 1 ETT location: oral VL device: glide scope [place] scope blade size: 4 Adult ETT distance at teeth/gum: 24 Oral tube type: standard ETT Cuffed: yes Airway confirmation: bilateral breath so unds, positive ETCO2 and bilateral chest rise Other previous techniques attempted: non e PRE PROCEDURE DETAILS: Pre evaluation for airway management: pr ocedure Urgency: elective Preoxygenation: bag valve mask SEDATION / ANESTHESIA Anesthesia method: anesthesia POST PROCEDURE DETAILS: ? Procedure outcome: successful ?? Airway event: no complications ATTESTATION STATEMENT Wolfgang Patria James INSPECTOR SOLDERING, DIRECTOR OF VOCATIONAL TRAINING, MNA ANESTHESIA ORDERABLES documented in this encounter Visit Diagnoses Not on filedocumented in this encounter Administered Medications Inactive Administered Medications - up to 3 most recent administrations Medication Order MAR Action Action Date Dose Rate Site fentaNYL injection (SUBLIMAZE) Given 10/13/2021 8:24 AM CDT 50 mcg intravenous, As needed, Starting on Mon10/13/21 at 0812, Anesthesia Intra-op Given 10/13/2021 8:12 AM CDT 100 mcg glucagon injection (GlucaGen) Given 10/13/2021 8:56 AM CDT 0.25 mg intravenous, As needed, Starting on Mon10/13/21 at 0849, Anesthesia Intra-op Given 10/13/2021 8:49 AM CDT 0.25 mg lactated ringers New Bag 10/13/2021 8:12 AM CDT intravenous, Continuous Infusion: Per Instructions PRN, Starting on Mon10/13/21 at 0812, Anesthesia Intra-op lidocaine (PF) (cardiac) injection Given 10/13/2021 8:12 AM CDT 100 mg intravenous, As needed, Starting on Mon10/13/21 at 0812, Anesthesia Intra-op ondansetron (PF) injection (ZOFRAN) Given 10/13/2021 8:12 AM CDT 4 mg intravenous, As needed, Starting on Mon10/13/21 at 0812, Anesthesia Intra-op phenylephrine injection Given 10/13/2021 8:34 AM CDT 100 mcg intravenous, As needed, Starting on Mon10/13/21 at 0834, Anesthesia Intra-op propofol 10 mg/mL infusion Rate/Dose 10/13/2021 8:34 50 mcg/kg/min 3 5.61 (DIPRIVAN) Change AM CDT mL/hr intravenous, Continuous Infusion: Per Instructions PRN, Starting on Mon10/13/21 at 0819, Anesthesia Intra-op New Bag 10/13/2021 8:19 AM CDT 100 mcg/kg/min 71.22 mL/hr propofoL injection (DIPRIVAN) Given 10/13/2021 8:12 AM CDT 200 mg intravenous, As needed, Starting on Mon10/13/21 at 0812, Anesthesia Intra-op succinylcholine (PF) injection (ANECTINE ) Given 10/13/2021 8:12 AM CDT 140 mg intravenous, As needed, Starting on Mon10/13/21 at 0812, Anesthesia Intra-op documented in this encounter Care Teams Manager Credit Risk Relationship Specialty Start Date End Date Elsewhere, Pcp PCP - General Internal Medicine 09/18/21 documented as of this encounter
--- OUTSIDE RECORDS SUMMARY | 2022-04-25 11:09 | XMS_ITS | Encounter Summary ---
:1975 Author Organization [facility] Address [address] [place] [phone] Care Team Providers Name Role Phone Elsewhere, Pcp Primary Care Provider Unavailable Reason for Visit Outpatient (Routine) - Canceled Specialty Diagnoses / Procedures Referred By Contact Refer red To Contact Diagnoses Other Intestinal Obstruction (HCC) Wolf Salmeron M.D. [facility] Procedures [place] Fluoro Less Than 1 Hour [address] [place] [phone] Referral ID Status Reason Start Date Expiration Date Visits V isits Requested Authorized [id number] Canceled 10/13/2021 10/13/2022 1 1 Encounter Details Date Type Department Care Team Description 10/13/2021 Hospital Encounter Department of Wolf Salmeron Intestinal RadiologyLisbeth M.D. Obstruction (HCC) Building, in [address] [place] [address] [place] [phone] [place], [place] [phone] (Work) [phone] Social History Tobacco Use Types Packs/Day Years [...] or relatives? How often do you attend protestant or More than 4 times per year 09/15/2021 jain services? Do you belong to any clubs or Yes 09/15/2021 organizations such as protestant groups, unions, fraternal or athletic groups, or [...] minutes do you engage in exercise at th is 120 min 09/15/2021 level? Stress Answer [...] place to sleep or slept in a correction (including now)? Education Answer Date Recorded What is the highest level of school Associate degree: codey espinoza, 09/15/2021 you have completed or the highest technical, or vocational p dominic degree you have received? 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 0 tablet atorvastatin (LIPITOR) Take 20 mg by mouth at 0 20 mg tablet bedtime. buPROPion (WELLBUTRIN Take 100 mg by mouth 0 SR) 100 mg 12 hr tablet daily. eszopiclone (LUNESTA) 3 Take 3 mg by mouth at 0 mg tablet bedtime as needed for sleep. Take immediately before bedtime gemfibroziL (LOPID) 600 Take 600 mg by mouth 2 0 mg tablet (two) times a day before breakfast and dinner. glipiZIDE (GLUCOTROL XL) Take 10 mg by mouth 0 10 mg 24 hr tablet daily with breakfast. LORazepam (ATIVAN) 0.5 Take 1 mg by mouth at 0 mg tablet bedtime as needed (sleep). metoprolol succinate Take 25 mg by mouth 2 0 (TOPROL-XL) 25 mg 24 hr (two) times a day. Do tablet not crush or chew. omeprazole (PriLOSEC) 40 Take 40 mg by mouth [address] capsule every morning before breakfast. oxyCODONE-acetaminophen Take 2 tablets by mouth 0 (PERCOCET) 7.5-325 mg every 6 (six) hours as per tablet needed for pain. pregabalin (LYRICA) 100 Take 100 mg by mouth 2 0 mg capsule (two) times a day. SITagliptin (JANUVIA) Take 100 mg by mouth 0 100 mg tablet daily. documented as of this encounter Plan of Treatment Not on filedocumented as of this encounter Visit Diagnoses Diagnosis Other Intestinal Obstruction (HCC) documented in this encounter Care Teams Planer Offbearer Relationship Specialty Start Date End Date Elsewhere, Pcp PCP - General Internal Medicine 09/18/21 documented as of this encounter
--- OUTSIDE RECORDS SUMMARY | 2022-04-25 11:09 | XMS_ITS | Encounter Summary ---
:1975 Author Organization [facility] Address [address] [place] [address] Care Team Providers Name Role Phone Elsewhere, Pcp Primary Care Provider Unavailable Encounter Details Date Type Department Care Team Description 10/13/2021 Ancillary Procedure Department of Gastroenterology Social History Tobacco Use Types Packs/Day Years [...] or relatives? How often do you attend jain or More than 4 times per year 09/15/2021 anglican services? Do you belong to any clubs or Yes 09/15/2021 organizations such as jain groups, unions, fraternal or athletic groups, or [...] place to sleep or slept in a halfway (including now)? Education Answer Date Recorded What is the highest level of school Associate degree: codey espinoza, 09/15/2021 you have completed or the highest technical, or vocational p dominic degree you have received? 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 documented in this encounter Results Lower Device-Assisted Enteroscopy without Fluoroscopy-Gastroenterology Image Exam (10/13/2021 7:40 AM CDT) Specimen (Source) Anatomical Collection Method Collection Time Re ceived Time Location / / Volume Laterality 10/13/2021 7:40 AM CDT Narrative [facility] - 10/13/2021 10:02 AM CDT This order has been created and auto-finalized to support the import of images acquired without order. The clini jackie documentation to support these images can be found on the encounter ashutosh t produced images. Provider Not In System IMG NON RAD IMAGING PROCEDUR ES Performing Organization Address City/State/ZIP Code Phon e Number [facility] NA documented in this encounter Visit Diagnoses Not on filedocumented in this encounter Care Teams Financial Administrator Relationship Specialty Start Date End Date Elsewhere, Pcp PCP - General Internal Medicine 09/18/21 documented as of this encounter
--- OUTSIDE RECORDS SUMMARY | 2022-04-25 11:09 | XMS_ITS | Encounter Summary ---
:1975 Author Organization [facility] Address [address] [place] [address] Care Team Providers Name Role Phone Elsewhere, Pcp Primary Care Provider Unavailable Encounter Details Date Type Department Care Team Description 10/10/2021 Hospital Encounter Department of Wendy, Preproce dural Lab Exam Laboratory Medicine Ynes Tejeda M.D. in [place], [address] [place] [address] [place] [phone] [place], [place] [phone] (Work) [phone] Social History Tobacco Use Types Packs/Day Years [...] or relatives? How often do you attend latter-day or More than 4 times per year 09/15/2021 religion services? Do you belong to any clubs or Yes 09/15/2021 organizations such as latter-day groups, unions, fraternal or athletic groups, or [...] place to sleep or slept in a retirement (including now)? Education Answer Date Recorded What is the highest level of school Associate degree: codey espinoza, 09/15/2021 you have completed or the highest technical, or vocational p dominic degree you have received? 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 glipiZIDE (GLUCOTROL Take 10 mg by mouth 0 XL) 10 mg 24 hr tablet daily with breakfast. LORazepam (ATIVAN) 0.5 Take 1 mg by mouth at 0 mg tablet bedtime as needed (sleep). metoprolol succinate Take 25 mg by mouth 2 0 (TOPROL-XL) 25 mg 24 hr (two) times a day. Do tablet not crush or chew. omeprazole (PriLOSEC) Take 40 mg by mouth [address] capsule every morning before breakfast. oxyCODONE-acetaminophen Take 2 tablets by 0 (PERCOCET) 7.5-325 mg mouth every 6 (six) per tablet hours as needed for pain. pregabalin (LYRICA) 100 Take 100 mg by mouth 2 0 mg capsule (two) times a day. SITagliptin (JANUVIA) Take 100 mg by mouth 0 100 mg tablet daily. [id number] Drink 1st portion of 1 kit 0 09/22/2021 [id number] prep at 6 PM the (MOVIPREP) evening before. 2nd 100-7.5-2.691 gram per portion must be packetIndications: started 3 hours before Obstruction Intestinal and finished 2 hours (HCC) prior to report time documented as of this encounter Plan of Treatment Not on filedocumented as of this encounter Procedures Procedure Name Priority Date/Time Associated Diagnosis Comme nts SARS CORONAVIRUS-2 Routine 10/10/2021 10:51 Preprocedural Lab Exam Results for this RNA, V AM CDT procedure are i n the results section. documented in this encounter Results SARS Coronavirus-2 RNA, V Asymptomatic (10/10/2021 10:51 AM CDT) [facility] Method Time Signature SARS-CoV-2 Swab, 10/10/2021 [...] pe rformed using the Aptima SARS-CoV-2 assay ([employer] on the [place] [employer] under emergency use authorization (EUA) by the U.S. Food and Drug Administ ration. Fact sheets for this EUA assay can be fo und at the following links: For Healthcare Providers: https://www.fd a.gov/media/300802/download For Patients: https://www.fda.gov/media/ 650981/download Specimen Anatomical Collection Method Collection Time Receive d Time (Source) Location / / Volume Laterality Varies 10/10/2021 10:51 10/10/2021 5:20 (Nasopharynx) AM CDT PM CDT Ynes Nguyen M.D. LAB MICROBIOLOGY - GENERAL O RDERABLES Performing Organization Address City/State/ZIP Code Phon e Number [facility]- [address] [place] [id number] [place] [address] System in [place] [address] [facility] documented in this encounter Visit Diagnoses Diagnosis Preprocedural Lab Exam documented in this encounter Additional Health Concerns Infection Onset Date Last Indicated Resolved Time COVID19 Pending 10/10/2021 10/10/2021 10/10/2021 10:06 PM CDT documented as of this encounter Care Teams Manager Molecular Relationship Specialty Start Date End Date Elsewhere, Pcp PCP - General Internal Medicine 09/18/21 documented as of this encounter
--- OUTSIDE RECORDS SUMMARY | 2022-04-25 11:09 | XMS_ITS | Encounter Summary ---
:1975 Author Organization [facility] Address [address] [place] [phone] Care Team Providers Name Role Phone Elsewhere, Pcp Primary Care Provider Unavailable Reason for Referral Outpatient (Routine) - Closed Specialty Diagnoses / Procedures Referred By Contact Refer red To Contact Diagnoses Obstruction Intestinal (HCC) Ynes Nguyen M.D. 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 How often do you attend presybeterian or More than 4 times per year 09/15/2021 mandaeism services? Do you belong to any clubs or Yes 09/15/2021 organizations such as presybeterian groups, unions, fraTely Labs or athletic groups, or school groups? How [...] place to sleep or slept in a snf (including now)? Education Answer Date Recorded What is the highest level of school Associate degree: codey espinoza, 09/15/2021 you have completed or the highest technical, or vocational p dominic degree you have received? 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
--- OUTSIDE RECORDS SUMMARY | 2022-04-25 11:09 | XMS_ITS | Clinical Summary ---
:1975 Author Organization [facility] Address [address] [place] [address] Care Team Providers Name Role Phone Elsewhere, Pcp Primary Care Provider Unavailable Source Comments Patient records contain information from all sites at [facility]. For routine questions regarding patient records, call [phone] during business hours, M-F 8:00 AM - 5:00 PM Central Time. Record requests for emergency care only can be directed to [phone] at any time.[facility] Allergies Active Allergy Reactions Severity Noted Date Comments Animal Dander Other (see comments) 08/17/2016 chung chatterjee, watery eyes Medications Medication Sig Dispensed Refills Start Date End Date Status aspirin 81 mg Chew 81 mg daily. 0 Active chewable tablet atorvastatin Take 20 mg by mouth 0 Active (LIPITOR) 20 mg at bedtime. tablet LORazepam (ATIVAN) Take 1 mg by mouth 0 Active 0.5 mg tablet at bedtime as needed (sleep). gemfibroziL (LOPID) Take 600 mg by 0 Active 600 mg tablet mouth 2 (two) times a day before breakfast and dinner. metoprolol succinate Take 25 mg by mouth 0 Active (TOPROL-XL) 25 mg 24 2 (two) times a hr tablet day. Do not crush or chew. pregabalin (LYRICA) Take 100 mg by 0 Active 100 mg capsule mouth 2 (two) times a day. SITagliptin (JANUVIA) Take 100 mg by 0 Active 100 mg tablet mouth daily. buPROPion (WELLBUTRIN Take 100 mg by 0 Active SR) 100 mg 12 hr mouth daily. tablet omeprazole (PriLOSEC) Take 40 mg by mouth [address] capsule every morning before breakfast. glipiZIDE (GLUCOTROL Take 10 mg by mouth 0 Active XL) 10 mg 24 hr daily with tablet breakfast. oxyCODONE-acetaminoph Take 2 tablets by 0 Active en (PERCOCET) 7.5-325 mouth every 6 (six) mg per tablet hours as needed for pain. eszopiclone (LUNESTA) Take 3 mg by mouth 0 Active 3 mg tablet at bedtime as needed for sleep. Take immediately before bedtime Active Problems Problem Noted Date Small Bowel Stricture Personal History 09/06/2021 Resolved Problems Problem Noted Date Resolved Date Ileocolitis Crohn's 08/17/2016 09/15/2021 Social History Tobacco Use Types Packs/Day Years [...] or relatives? How often do you attend evangelical or More than 4 times per year 09/15/2021 quaker services? Do you belong to any clubs or Yes 09/15/2021 organizations such as evangelical groups, unions, fraternal or athletic groups, or [...] or the highest technical, or vocational p rogram degree you have received? 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 Last Filed Vital Signs Vital Sign Reading Time Taken Comments Blood Pressure 123/72 10/13/2021 10:30 AM CDT Pulse 96 10/13/2021 10:30 AM CDT Temperature 36.7 ??C (98.1 ??F) 10/13/2021 9:34 AM CDT Respiratory Rate 14 10/13/2021 10:30 AM CDT Oxygen Saturation 91% 10/13/2021 10:30 AM CDT Inhaled Oxygen Concentration - - Weight 119 kg (261 lb 11 oz) 09/18/2021 4:03 PM GREEN TIRE INSPECTOR Height 185 cm (6' 0.84) 09/21/2021 11:02 AM GREEN TIRE INSPECTOR Body Mass Index 34.68 09/18/2021 4:03 PM GREEN TIRE INSPECTOR Plan of Treatment Health Maintenance Due Date Last Done Comments CT Colonography 1975 Cologuard 1975 FIT 1975 HIV Screening 1975 Hepatitis B Vaccines (1 of 1975 3 - 3-dose series) Hepatitis C Screening 1975 Lipid (Cholesterol) 1975 Screening DTaP,Tdap,and Td Vaccines 08/05/2015 08/04/2015 (1 - Tdap) COVID-19 Vaccine (3 - 02/04/2021 01/07/2021, 11/13/2020 Pfizer risk series) Depression Screening 07/24/2021 (Annual PHQ-2) Office Visit for Blood 12/04/2021 09/06/2021 Pressure Check / Re-check Influenza Vaccine (#1) 2022 05/18/2021, 04/23/2021, 06/12/2020, Additional history exists Pneumococcal vaccine (0-64 02/16/2023 02/16/2022 years) (2 - PCV) Fasting Glucose for 09/21/2024 09/21/2021, 09/20/2021, Diabetes Screening 09/20/2021, Additional history exists Colonoscopy 09/13/2031 09/13/2021, 09/13/2021, 09/13/2021, Additional history exists Colorectal Cancer Screening 09/13/2031 HPV Vaccines Aged Out No longer eligib le based on patient 's age to complete this topic Medical Devices Implanted Type Area Wafer Production Lead Worker Device Identifier Shelf Model / Expiration Serial / Date Lot Clp Hemo Cath [id number] - [id number] Hardware Cook Medic al [id number] 05/10/2024 [id number] / Implanted: Qty: 1 on 09/13/2021 by Wolf Blandon M.B., B.Ch., Ph.D. at [facility] [employer] / pins/screws [id number] /rods Clp Hemo Cath [id number] - [id number] Hardware N/A: Cook Medic [employer] [id number] 11/27/2023 [id number] / Implanted: Qty: 1 on 10/13/2021 by Wolf Salmeron M.D. at [facility] [employer] / pins/screws [id number] /rods Insurance Payer Benefit Plan / Subscriber ID Effective Dates Phone Addre ss Type Group [employer] [id number] 2021-Presen [phone] [address] PPO BLUE SHIELD [address] [place] [address] Advance Directives For more information, please contact: [phone] Latest Code Status on File Code Status Date Activated Date Inactivated Comments Full Code 09/18/2021 2:51 PM 09/21/2021 8:46 PM Full Code: Discussed Full Code 09/06/2021 4:18 PM 09/08/2021 4:06 PM Full Code: Discussed Care Teams Core Driller Helper Relationship Specialty Start Date End Date Elsewhere, Pcp PCP - General Internal Medicine 09/18/21
--- OUTSIDE RECORDS SUMMARY | 2022-04-25 11:09 | XMS_ITS | Encounter Summary ---
:1975 Author Organization [facility] Address [address] [place] [address] Care Team Providers Name Role Phone Elsewhere, Pcp Primary Care Provider Unavailable Reason for Referral Outpatient (Routine) - Closed Specialty Diagnoses / Procedures Referred By Contact Refer red To Contact Diagnoses Obstruction Intestinal (HCC) Ynes Nguyen M.D. [facility] Procedures Double Balloon Assisted Enteroscopy - Lower [address] [place] [address] [phone] Referral ID Status Reason Start Date Expiration Date Visits Requ ested Visits Authorized [id number] Closed 09/22/2021 09/22/2022 1 1 Reason for Visit Outpatient (Routine) - Closed Specialty Diagnoses / Procedures Referred By Contact Refer red To Contact Diagnoses Obstruction Intestinal (HCC) Ynes Nguyen M.D. [facility] Procedures Double Balloon Assisted Enteroscopy - Lower [address] [place] [phone] Referral ID Status Reason Start Date Expiration Date Visits Requ ested Visits Authorized [id number] Closed 09/22/2021 09/22/2022 1 1 Encounter Details Date Type Department Care Team Description 10/13/2021 Hospital Division of Ynes Nguyen M.D. [address] [place] [phone] Obstruction Encounter Gastroenterology in Wolfgang James N, GUT SORTER, SENIOR SAS DEVELOPER, MNA [address] [place] [phone] Intestinal ([facility]) [place], [place] [address] [place] [address] Social History Tobacco Use Types Packs/Day Years [...] or relatives? How often do you attend advent or More than 4 times per year 09/15/2021 alevism services? Do you belong to any clubs or Yes 09/15/2021 organizations such as advent groups, unions, fraternal or athletic groups, or [...] place to sleep or slept in a usp (including now)? Education Answer Date Recorded What is the highest level of school Associate degree: codey espinoza, 09/15/2021 you have completed or the highest technical, or vocational p nickram degree you have received? 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 documented as of this encounter Last Filed Vital Signs Vital Sign Reading Time Taken Comments Blood Pressure 132/85 10/13/2021 7:11 AM CDT Pulse 97 10/13/2021 7:11 AM CDT Temperature 36.8 ??C (98.2 ??F) 10/13/2021 7:11 AM CDT Respiratory Rate 15 10/13/2021 7:11 AM CDT Oxygen Saturation 95% 10/13/2021 7:11 AM CDT Inhaled Oxygen Concentration - - Weight - - Height - - Body Mass Index - - documented in this encounter Medications at Time of Discharge [...] Name Priority Date/Time Associated Diagnosis Comme nts SURGICAL PATHOLOGY Routine 10/13/2021 8:57 AM Res ults for this CDT procedure are i n the results section. LOWER Routine 10/13/2021 7:40 AM Obstruction Results f or this DEVICE-ASSISTED CDT Intestinal (HCC) procedur e are in ENTEROSCOPY WITHOUT the resu lts FLUOROSCOPY section. DOUBLE BALLOON Routine 10/13/2021 7:40 AM Obstruction ASSISTED CDT Intestinal (HCC) ENDOSCOPY/COLONOSCOP Y documented in this encounter Results Surgical Pathology (10/13/2021 8:57 AM CDT) Component Value Ref Test Analysis Performed At [facility] gist Range Method Time Signature 10/14/2021 DTL 1:38 PM CDT Report Yony Fisher M.D. 10/14/2021 DT L electronically 1:38 PM CDT signed by I verify that I have examined all relevant slides/materials for the specimen(s) and rendered or confirmed the diagnosis. Gross Description Received in formalin labeled with the patient's n netta, 10/14/2021 DTL medical record number, and small bowel-ileum, terminal 1:38 PM CDT ileum, mid (ileum), distal ileum are multiple pale melgar-pink irregular soft tissues, ranging from 0.2-0.7 cm in greatest dimension. ?? Specimens are submitted en toto in cassettes A1-A2, seven fragments in each cassette. ??Grossed by ASIM. Interpretation FINAL DIAGNOSIS 10/14/2021 DTL A. ??Small bowel, terminal ileum, endoscopic biopsy: ??Ileal 1:38 PM CDT mucosa with focal erosion. ??No granulomas. ??No changes of chronicity. ??No dysplasia. Specimen (Source) Anatomical Collection Method Collection Time Re ceived Time Location / / Volume Laterality Biopsy (Ileum) 10/13/2021 8:57 AM CDT Narrative This result has an attachment that is no t available. Wolf Salmeron M.D. LAB SURG PATH ORDERABLES Performing Organization Address City/State/ZIP Code Phon e Number [facility] - [address] [place], [place] [address] [facility] [place] [address] [facility] [address] [facility] Device-Assisted Enteroscopy without Fluoroscopy (10/13/2021 7:40 AM CDT) Specimen (Source) Anatomical Collection Method Collection Time Re ceived Time Location / / Volume Laterality 10/13/2021 7:40 AM CDT Impressions [facility] - 10/13/2021 9:52 AM CDT Post-op Diagnoses: ? 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 the terminal ileum. Biopsied. Tat tooed. Hemoclip placed. NO stricture ? noted. ? - Hemoclip in the transverse colo n. Narrative [facility] - 10/13/2021 9:52 AM CDT [facility] Patient Name: Lawson Whitley Date of : 1975 Age: 46 Gender: Male Procedure Date: 10/13/2021 Procedure: ? Lower De vice-Assisted Enteroscopy without Fluoroscopy Providers: ? Wolf Salemron MD Referring Provider: ?Ynes hagen Pre-op Diagnoses: ?Abnormal CT of the GI tract Recommendation: ? - Await pathology results. ? - Return to referring physician a s previously scheduled. ? - PATHOLOGY/MICROBIOLOGY FOLLOW-U P: The ordering provider is responsible ? for reviewing results from specim ens obtained during this endoscopic ? procedure and communicating the f indings to the patient. If guidance is ? needed for interpreting endoscopi c findings or pathology results, please ? consider a gastroenterology e-con sult. Findings: ? The mid ileum, distal ileum and t erminal ileum contained multiple patchy ? non-bleeding aphthae (n=15-20). N o stigmata of recent bleeding were ? seen. NO stricture noted. Biopsie s were taken with a cold forceps for ? histology. Area (point of maximum insertion) was tattooed with an ? injection of 2 mL of Spot (carbon black). Hemoclip placed at tattoo site ? as radiologic marker. ? A hemoclip was found in the trans verse colon. Procedural Details: ? The patient was seen, evaluated, history reviewed, airway and heart-lung ? exams were performed by licensed provider and were satisfactory for ? planned level of sedation care. ? The risks, benefits and alternati ves for the procedure and sedation were ? discussed and informed consent wa s obtained. A procedural pause was ? conducted in the presence of assi sting personnel to verify the correct ? patient identity and procedure to be performed. Throughout the ? procedure, the patient's blood pr essure, pulse, and oxygen saturations ? were monitored continuously. The Enteroscope Balloon was introduced ? through the anus and advanced to the ileum. The patient was seen, ? evaluated, history reviewed, airw ay and heart-lung exams were performed ? by licensed provider and were sat isfactory for planned level of sedation ? care. ? The risks, benefits and alternati ves for the procedure and sedation were ? discussed and informed consent wa s obtained. A procedural pause was ? conducted in the presence of assi sting personnel to verify the correct ? patient identity and procedure to be performed. Throughout the ? procedure, the patient's blood pr essure, pulse, and oxygen saturations ? were monitored continuously.The l ower device-assisted enteroscopy was ? performed without difficulty. The patient tolerated the procedure well. ? The quality of the bowel preparat ion was good. Complications: ? No immedia te complications. Estimated Blood Loss: ?Estimated blo od loss was minimal. Attending Participation: I personally pe rformed the entire procedure. Wolf Salmeron MD 10/13/2021 9:52:07 AM This report has been signed electronical ly. Number of Addenda: 0 Note Initiated On: 10/13/2021 7:40 AM Ynes Nguyen M.D. GI PROCEDURE ORDERABLES Performing Organization Address City/State/ZIP Code Phon e Number [facility] [employer] documented in this encounter Visit Diagnoses Diagnosis Obstruction Intestinal (HCC) documented in this encounter Administered Medications Inactive Administered Medications - up to 3 most recent administrations Medication Order MAR Action Action Date Dose Rate Site lactated ringers Continued from OR 10/13/2021 9:37 AM 20 mL/hr 20 mL/hr 20 mL/hr, intravenous, CDT Continuous, Starting on Mon10/13/21 at 0915, PACU & Post-Op simethicone drops (MYLICON) Given 10/13/2021 7:58 AM CDT 5 mL Code/trauma/sedation medication, Starting on Mon10/13/21 at 0758 documented in this encounter Care Teams Licensing Engineer Relationship Specialty Start Date End Date Elsewhere, Pcp PCP - General Internal Medicine 09/18/21 documented as of this encounter
--- OUTSIDE RECORDS SUMMARY | 2022-04-25 11:10 | XMS_ITS | Encounter Summary ---
:1975 Author Organization [facility] Address [address] [place] [id number] Care Team Providers Name Role Phone Unavailable Primary Care Provider Unavailable Reason for Referral Outpatient (Routine) - Closed Specialty Diagnoses / Procedures Referred By Contact Refer red To Contact Diagnoses Obstruction Intestinal (HCC) Ynes Nguyen M.D. [facility] Procedures Colonoscopy [address] [place] [phone] Referral ID Status Reason Start Date Expiration Date Visits Requ ested Visits Authorized [id number] Closed 09/07/2021 09/07/2022 1 1 NOLOGY COACH Reason for Visit Auth/Cert Specialty Diagnoses / Procedures Referred By Contact Refer red To Contact Diagnoses Obstruction Intestinal (HCC) Procedures COLONOSCOPY Referral ID Status Reason Start Date Expiration Date Visits Requ ested Visits Authorized [id number] 1 1 Encounter Details Date Type Department Care Team Description 09/13/2021 Hospital Encounter Division of Sir carlos Nguyen M.D. [address] [place] [phone] Obstruction Gastroenterology in [place] APRN, CLIFF, D.N.P. [address] [place] [phone] Intestinal (HCC) [place], [place] [address] [place], [place] [phone] Social History Tobacco Use Types Packs/Day Years [...] or relatives? How often do you attend hinduism or More than 4 times per year 09/15/2021 hinduism services? Do you belong to any clubs or Yes 09/15/2021 organizations such as hinduism groups, unions, fraternal or athletic groups, or [...] or slept in a halfway (including now)? 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 documented as of this encounter Last Filed Vital Signs Vital Sign Reading Time Taken Comments Blood Pressure 115/72 09/13/2021 10:45 AM TECHNOLOGY COACH Pulse 75 09/13/2021 10:49 AM TECHNOLOGY COACH Temperature 36.8 ??C (98.2 ??F) 09/13/2021 9:41 AM TECHNOLOGY COACH Respiratory Rate 13 09/13/2021 10:49 AM TECHNOLOGY COACH Oxygen Saturation 94% 09/13/2021 10:49 AM TECHNOLOGY COACH Inhaled Oxygen Concentration - - Weight 118 kg (259 lb 4.2 oz) 09/13/2021 9:01 AM TECHNOLOGY COACH Height - - Body Mass Index 34.21 09/10/2021 11:24 AM TECHNOLOGY COACH documented in this encounter Medications at Time of Discharge Medication Sig Dispensed Refills Start Date End Date aspirin 81 mg chewable Chew 81 mg daily. 0 tablet atorvastatin (LIPITOR) Take 20 mg by mouth 0 20 mg tablet at bedtime. buPROPion (WELLBUTRIN Take 100 mg by mouth 0 SR) 100 mg 12 hr tablet daily. gemfibroziL (LOPID) 600 Take 600 mg by mouth 0 mg tablet 2 (two) times a day before breakfast and dinner. LORazepam (ATIVAN) 0.5 Take 1 mg by mouth at 0 mg tablet bedtime as needed (sleep). metoprolol succinate Take 25 mg by mouth 2 0 (TOPROL-XL) 25 mg 24 hr (two) times a day. Do tablet not crush or chew. omeprazole (PriLOSEC) 40 Take 40 mg by mouth [address] capsule every morning before breakfast. pregabalin (LYRICA) 100 Take 100 mg by mouth 0 mg capsule 2 (two) times a day. SITagliptin (JANUVIA) Take 100 mg by mouth 0 100 mg tablet daily. [id number] Drink 1st portion of 1 kit 0 09/09/2021 [id number]-[id number]-[id number] prep at 6 PM the (MOVIPREP) 100-7.5-2.691 evening before. 2nd gram per packet portion must be started 3 hours before and finished 2 hours prior to report time documented as of this encounter Plan of Treatment Not on filedocumented as of this encounter Procedures Procedure Name Priority Date/Time Associated Diagnosis Comme nts SURGICAL PATHOLOGY Routine 09/13/2021 9:20 AM Res ults for this TECHNOLOGY COACH procedure are i n the results section. COLONOSCOPY Routine 09/13/2021 8:46 AM Obstruction Results f or this TECHNOLOGY COACH Intestinal (HCC) procedure a re in the results section. COLONOSCOPY Routine 09/13/2021 8:46 AM Obstruction TECHNOLOGY COACH Intestinal (HCC) documented in this encounter Results Surgical Pathology (09/13/2021 9:20 AM TECHNOLOGY COACH) Component Value Ref Test Analysis Performed At [facility] Range Method Time Signature 09/14/2021 DTL 11:55 AM TECHNOLOGY COACH Participated in Vilma Rodríguez 09/14/2021 DT [facility] [place], Ph.D. 11:55 AM Interpretation -Pathology TECHNOLOGY COACH Resident Report Thad Rivera M.D. 09/14/2021 DTL electronically 11:55 AM signed by TECHNOLOGY COACH I verify that I have examined all relevant slides/materials for the specimen(s) and rendered or confirmed the diagnosis. Gross Description A: ?? Received in formalin labeled with the patie nt's name, 09/14/2021 DTL medical record number, and ileum-terminal ileum are seven 11:55 AM pale bsv-fdos-yki irregular soft tissues, ranging from TECHNOLOGY COACH 0.3-0.6 cm in greatest dimension. ??Specimens are submitted en toto in cassette A1. Grossed by LINDA. B: ?? Received in formalin labeled with the patient's name, medical record number, and colon-right colon are seven pale xfs-fsia-dqp irregular soft tissues, ranging from 0.2-0.5 cm in greatest dimension. ??Specimens are submitted en toto in cassette B1. ??Grossed by LINDA. C: ?? Received in formalin labeled with the patient's name, medical record number, and colon-left colon are six pale nqg-bofo-hth irregular soft tissues, ranging from 0.2-0.6 cm in greatest dimension. ??Specimens are submitted en toto in cassette C1. Grossed by LINDA. D: ?? Received in formalin labeled with the patient's name, medical record number, and colon-rectum are five pale melgar-pink irregular soft tissues, ranging from 0.2-0.7 cm in greatest dimension. ??Specimens are submitted en toto in cassette D1. Grossed by LINDA. Interpretation FINAL DIAGNOSIS 09/14/2021 DTL A. Small intestine, terminal ileum, endoscopic biopsy: 11:55 AM Small TECHNOLOGY COACH intestinal mucosa with no diagnostic abnormality. B. Colon, right, endoscopic biopsy: Colonic mucosa with no diagnostic abnormality. C. Colon, left, endoscopic biopsy: Colonic mucosa with no diagnostic abnormality. D. Colon, rectum, endoscopic biopsy: Colonic mucosa with no diagnostic abnormality. Specimen (Source) Anatomical Collection Method Collection Time Re ceived Time Location / / Volume Laterality Biopsy (Ileum) 09/13/2021 9:20 AM TECHNOLOGY COACH Biopsy (Colon) 09/13/2021 9:27 AM TECHNOLOGY COACH Biopsy (Colon) 09/13/2021 9:27 AM TECHNOLOGY COACH Biopsy (Colon) 09/13/2021 9:28 AM TECHNOLOGY COACH Narrative This result has an attachment that is no t available. Wolf [place], B.Ch., Ph.D. LAB SURG PATH KAYLIE HENSON Performing Organization Address City/State/ZIP Code Phon e Number [facility] - [address] [place], [place] [address] [facility] [place] [address] [facility] [address] Colonoscopy (09/13/2021 8:46 AM TECHNOLOGY COACH) Specimen (Source) Anatomical Collection Method Collection Time Re ceived Time Location / / Volume Laterality 09/13/2021 8:46 AM TECHNOLOGY COACH [facility]ressions [facility] 09/13/2021 9:39 AM TECHNOLOGY COACH Post-op Diagnoses: ? 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 Biopsied. No strictures seen. ? - Normal mucosa in the entire exa mined colon. Biopsied. Clip (MR ? conditional) was placed to contro l bleeding from a biopsy in the ? transverse colon. ? - The distal rectum and anal verg e are normal on retroflexion view. Narrative [facility] - 09/13/2021 9:39 AM TECHNOLOGY COACH [facility] 6 GI GI Patient Name: Lawson Whitley Date of : 1975 Age: 46 Gender: Male Procedure Date: 09/13/2021 Procedure: ? Colonosc opy Providers: ? Stanislav Shin,B.Ch., Ph.D. Referring Provider: ?Ynes hagen Pre-op Diagnoses: ?Abnormal CT of the GI tract Recommendation: ? - Return to referring physician. ? - Await pathology results. ? - PATHOLOGY/MICROBIOLOGY FOLLOW-U P: The ordering provider is responsible ? for reviewing results from specim ens obtained during this endoscopic ? procedure and communicating the f indings to the patient. If guidance is ? needed for interpreting endoscopi c findings or pathology results, please ? consider a gastroenterology e-con sult. Findings: ? The perianal and digital rectal e xaminations were normal. ? The terminal ileum contained mult iple scattered non-bleeding aphthae. No ? stigmata of recent bleeding were seen. Biopsies were taken with a cold ? forceps for histology. Verificati on of patient identification for the ? specimen was done by the physicia n, nurse and ct technician using the ? patient's name and date. Es timated blood loss was minimal. ? Normal mucosa was found in the en tire colon. Biopsies were taken with a ? cold forceps for histology. Verif ication of patient identification for ? the specimen was done by the phys ician, nurse and ct technician using the ? patient's name and date. To prevent bleeding after the biopsy, one ? hemostatic clip was successfully placed (MR conditional). There was no ? bleeding at the end of the proced ure. ? The retroflexed view of the dista l rectum and anal verge was normal and ? showed no anal or rectal abnormal ities. Procedural Details: ? The patient was seen, [...] oxygen saturations ? were monitored continuously. The Colonoscope was introduced under direct ? vision through the anus and advan deana to 20 cm into the ileum. The ? colonoscopy was performed without difficulty. The patient tolerated the ? procedure well. The quality of th e bowel preparation was evaluated using ? the BBPS ([place] Bowel Preparatio n Scale) with scores of: Right Colon = ? 3, Transverse Colon = 3 and Left Colon = 3 (entire mucosa seen well with ? no residual staining, small fragm ents of stool or opaque liquid). The ? total BBPS score equals 9. Estimated Blood Loss: ?Estimated blo od loss was minimal. Complications: ? No immedia te complications. Sedation: ? Anesthesia was administered by an anesthesia professional. The following ? parameters were monitored: oxygen saturation, heart rate, blood ? pressure, respiratory rate, EKG, adequacy of pulmonary ventilation, and ? response to care. Attending Participation: I personally pe rformed the entire procedure. Frederick Gayle.,B.Ch., Ph.D. 09/13/2021 9:39:39 AM This report has been signed electronical ly. Number of Addenda: 0 Ynes Nguyen M.D. GI PROCEDURE ORDERABLES Performing Organization Address City/State/ZIP Code Phon e Number [employer] NA documented in this encounter Visit Diagnoses Diagnosis Obstruction Intestinal (HCC) documented in this encounter
--- OUTSIDE RECORDS SUMMARY | 2022-04-25 11:10 | XMS_ITS | Encounter Summary ---
:1975 Author Organization [facility] Address [address] [place] [id number] Care Team Providers Name Role Phone Unavailable Primary Care Provider Unavailable Reason for Visit Auth/Cert Specialty Diagnoses / Procedures Referred By Contact Refer red To Contact Diagnoses Small Bowel Stricture Personal History Small Bowel obstruction Procedures Z87.19 (ICD-10-CM) - Small Bowel Stricture Personal History Referral ID Status Reason Start Date Expiration Date Visits Requ ested Visits Authorized [id number] 1 1 Encounter Details Date Type Department Care Team Description 09/06/2021 - Hospital Encounter [facility] Sheeba Bates 09/08/2021 [facility], Stanislav Koenig, BRosalinda. Stricture [facility], [address] [place] [address] History ([place], [place] Dx) Third Floor [id number] [place] [address] [place] (Work) [phone] Social History Tobacco Use Types Packs/Day Years Used Date Smoking Tobacco: Never Smokeless Tobacco: Never Alcohol Habits Answer Date Recorded How often [...] or relatives? How often do you attend jainism or More than 4 times per year 09/15/2021 baptism services? Do you belong to any clubs or Yes 09/15/2021 organizations such as jainism groups, unions, fraternal or athletic groups, or [...] place to sleep or slept in a residential (including now)? 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 encounter Last Filed Vital Signs Vital Sign Reading Time Taken Comments Blood Pressure 120/80 09/08/2021 1:31 PM RN [employer] Pulse 81 09/08/2021 1:31 PM RN [employer] Temperature 36.5 ??C (97.7 ??F) 09/08/2021 1:31 PM RN [employer] Respiratory Rate 15 09/08/2021 1:31 PM RN [employer] Oxygen Saturation 96% 09/08/2021 1:31 PM RN [employer] Inhaled Oxygen Concentration - - Weight 120 kg (264 lb 8.8 oz) 09/06/2021 3:13 PM RN [employer] Height 185.4 cm (6' 1) 09/06/2021 3:13 PM RN [employer] Body Mass Index 34.9 09/06/2021 3:13 PM RN [employer] documented in this encounter Discharge Summaries Shannon Rushing M.B., B.Ch. - 09/08/2021 9:58 AM CST DISCHARGE SUMMARY BRIEF OVERVIEW Hospital: [facility] Discharge Provider: Sheeba Bates M.B. Primary Care Provider at Discharge: No primary care provider on file. Primary Care Provider Phone Number: None Primary Care Provider Fax Number: None Other Providers: None Primary Team: [facility] Gastroenterology A Admission Date: 09/06/2021 Discharge Date: 09/08/2021 PRINCIPAL DIAGNOSIS Small Bowel Stricture Personal History SECONDARY DIAGNOSES Principal Problem: Small Bowel Stricture Personal History Resolved Problems: * No resolved hospital problems. * DISCHARGE DISPOSITION Home or Self Care [1] ACTIVE ISSUES REQUIRING FOLLOW UP ??? Please attend your CT enterography scheduled for 09/10. ??? Please attend your colonoscopy scheduled for 09/13. ??? We will call you with the results the tests to determine next steps management. ??? Please continue to avoid all NSAIDs including ibuprofen and Aleve. ??? Please follow-up with your PCP or fitness/wellness director regarding the results of your cardiac CT which were obtained at [place]. OUTPATIENT FOLLOW UP Scheduled Appointments 09/10/2021 12:[address] [facility] 832 Radiology 09/10/2021 1:10 PM LAB MISC MED SCREEN [facility] 06 W Laboratory Medicine 09/13/2021 9:15 AM RM 442 [facility] ROAL 01 GI Gastroenterology and Hepatology For appointment details refer to your Patient Appointment Guide. TEST RESULTS PENDING AT DISCHARGE Pending Labs None DETAILS OF HOSPITAL STAY REASON FOR ADMISSION Small Bowel Stricture Personal History HOSPITAL COURSE Mr. 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 He has been hospitalized 6 times over this period of time, most recently in July. He never has d iarrhea without subsequent obstructive symptoms, each time resulting in about a week admission. He presents with sudden onset moderate to severe right upper quadrant pain, bloating, nausea, diarrhea, and complete p.o. intolerance except to ice chips. Per patient, each prior episode has been treated with prednisone taper. He has had three colonoscopies, two of which suggested the possibility of mild ileal inflammation including one exam that showed localized aphthous ulcers. The biopsies only showed nonspecific focal ileitis. [facility] saw him here in 2016, said no dx of IBD, seems steroid responsive but not appropriate for long-term immunosuppression w/o dx criteria and proposed colonoscopy and CT enterography here. He did the colonoscopy only, which was totally normal. He has had one upper endoscopy around 2013 that was essentially normal. No duodenal biopsies were done. He did undergo pill enteroscopy at [facility] which was unrevealing, date unclear. In early July, he had gradual onset of abdominal pain in the right upper quadrant which is typical for these episodes for him. He became nauseous and with decreased p.o. tolerance and presented to the [facility] where he was admitted. He was treated with prednisone for roughly 7 days in then put on a taper and discharged. He was taking food p.o. but continued to have significant pain and diarrhea though is much improved from presentation. However, this rapidly worsened 09/04/21 and was progressive leading up to his presentation here. Last prednisone dose (on taper)08/24 , no clear progression since stopping, just sudden worsening on the . CT demonstrated segmental wall thickening, narrowing, and hyperenhancement in the colon (for exampleseries 2, image 82 on the left and image 68 on the right) and in the small bowel. Multiple short segments of narrowing in the distal small bowel compatible with strictures. Associated gradual upstream dilation measuring up to 4.1 cm. Labs including CBC, BMP, ESR, CRP reassuring and essentially all within normal limits. Radius Corner Machine Operator film from initial CT showed significant gastric distention. NG tube was placed overnight whichinduced emesis (unknown volume). Small volume of < 100mL suctioned within the first 2 hours, at which point patient could no longer tolerate NG tube despite PRNs, at which time NG tube as removed. This did, however, result in significant symptomatic improvement. On the morning of 09/07/21, he denied any subsequent symptomatic worsening, even without an NG tube. He was started on a clear liquid diet and advanced to a soft diet which was well tolerated. On the morning of 09/08 he continued to improve and was suitable for discharge for outpatient follow up. It wassuspected that the small bowel stricture may be related to scarring from a history of NSAID use. He was scheduled for outpatient CT enterography on 09/10 and colonoscopy on 09/13. He will be called with the results of these exams. PHYSICAL EXAM Constitutional: Comfortable, sitting on the edge of the bed. Eyes: EOMI, no conjunctival injection HENT: moist MM, no pharyngeal erythema or exudates Neck: No JVD Cardio: Regular rate and rhythm, no murmurs, rubs or gallops, +2 radial pulses bilaterally, No LE edema Resp: breathing comfortably on room air Gi: soft, normal Bowel sounds, nontender to palpation MSK: no gross deformities of extremities appreciated Skin: No visible rash Neuro: alert, conversing appropriately, spontaneous movement of all 4 extremities Psych: Congruent mood and affect CONSULTS ORDERED DURING THIS ADMISSION None Lipase, S Date Value Ref Range Status 09/06/2021 21 13 - 60 U/L Final Leukocytes Date Value Ref Range Status 09/07/2021 5.1 3.4 - 9.6 x10(9)/L Final Erythrocytes Date Value Ref Range Status 09/07/2021 4.65 4.35 - 5.65 x10(12)/L Final Hemoglobin Date Value Ref Range Status 09/07/2021 13.9 13.2 - 16.6 g/dL Final Platelet Count Date Value Ref Range Status 09/07/2021 284 135 - 317 x10(9)/L Final Aspartate Aminotransferase (AST), S Date Value Ref Range Status 09/06/2021 17 8 - 48 U/L Final Alanine Aminotransferase (ALT), S Date Value Ref Range Status 09/06/2021 25 7 - 55 U/L Final Bilirubin, Total, S Date Value Ref Range Status 09/06/2021 0.4 <=1.2 mg/dL Final Alkaline Phosphatase, S Date Value Ref Range Status 09/06/2021 56 40 - 129 U/L Final BUN (Blood Urea Nitrogen), S Date Value Ref Range Status 09/07/2021 15 8 - 24 mg/dL Final Creatinine, S Date Value Ref Range Status 09/07/2021 0.94 0.74 - 1.35 mg/dL Final Glucose, S Date Value Ref Range Status 09/07/2021 150 (H) 70 - 140 mg/dL Final Glucose, POCT, B Date Value Ref Range Status 09/08/2021 157 (H) 70 - 140 mg/dL Final CONDITION AT DISCHARGE stable Discharge instructions were provided to the patient and caregiver(s). [employer] documented in this encounter Discharge Instructions Discharge InstructionsKahlil Crespo - 09/07/2021 7:53 AM CST You were discharged from the [facility] Gastroenterology A Service. Please identify this service name if you call with questions after hospitalization. [employer] documented in this encounter Medications at Time of Discharge Medication Sig Dispensed Refills Start Date End Date aspirin 81 mg chewable Chew 81 mg daily. 0 tablet atorvastatin (LIPITOR) 20 Take 20 mg by mouth at 0 mg tablet bedtime. buPROPion (WELLBUTRIN SR) Take 100 mg by mouth 0 100 mg 12 hr tablet daily. gemfibroziL (LOPID) 600 Take 600 mg by mouth 2 0 mg tablet (two) times a day before breakfast and dinner. LORazepam (ATIVAN) 0.5 mg Take 1 mg by mouth at 0 tablet bedtime as needed (sleep). metoprolol succinate Take 25 mg by mouth 2 0 (TOPROL-XL) 25 mg 24 hr (two) times a day. Do tablet not crush or chew. omeprazole (PriLOSEC) 40 Take 40 mg by mouth [address] capsule every morning before breakfast. pregabalin (LYRICA) 100 Take 100 mg by mouth 2 0 mg capsule (two) times a day. SITagliptin (JANUVIA) 100 Take 100 mg by mouth 0 mg tablet daily. documented as of this encounter Progress Notes Sheeba Bates M.B., B.Chir. - 09/08/2021 9:52 AM CST I agree with the history, physical examination, evaluation documented by the discharge note by Dr. Rushing from today, August,. Tolerating the liquid diet and a soft diet. Minimal pain. OBJECTIVE PHYSICAL EXAMINATION General: Looks well. Overweight for height. Abdomen: Soft. ASSESSMENT / PLAN #1 Intermittent small bowel obstruction Lawson Whitley is a 46-year-old man with intermittent small bowel obstructions. He is not on an NELLIE inhibitor. His symptoms occur stereotypically and resolve very rapidly, and then he is placed on a rapid steroid taper. The differential is either NSAID-induced small bowel disease or inflammatory bowel disease. For the interim, I am going to ask him to be on a liquid diet and then a low-residue diet until we can do an outpatient evaluation with CT enterography and colonoscopy. If he does have a small stricture in the small bowel, consideration for surgery should be entertained. He will follow up with [employer] Anton Osborn, D., R.Ph. - 09/07/2021 7:00 AM CST Pharmacist Progress Note Reason for admission: SBO PMH: DM2, fibromyalgia, anxiety, CAD OBJECTIVE Prophylaxis: lovenox Estimated Creatinine Clearance: 101.8 mL/min (by C-G formula based on SCr of 1.23 mg/dL). Home medications: Med history per [facility] - New: haldol, dilaudid, tylenol, melatonin, aspart - Held: MAR Holding asa, lipitor, lopid, ativan, metop, lyrica, januvia, protonix, wellbutrin - Changed: ativan increased. MEDICATION ASSESSMENT / PLAN 1. SBO. NPO. Did not tolerate NG by report. Need enteral access for po med administration. Few alternatives exist if needed: Aspirin is available as 300 mg suppository, metoprolol is available as 25 mgsuppository. No alternate route options for statin, wellbutrin, lyrica. PPI could be IV if deemed critical to resume. 2. DM2. Holding home januvia. Aspart correction scale ordered. 3. PSYCH: anxiety, fibromyalgia. Holding wellbutrin, lyrica. New ativan 1 mg q3h prn, haldol 2 mg IMq8h prn. QTc 456. Anton Chan D., [facility] [employer] Herman Murphy Pharm.D., R.Ph. - 09/06/2021 3:48 PM CST Images from the original note were not included. Admission Medication History Note Adherence issues: No concerns Medication list source: Patient Prior to Admission Medications Med List Status: Pharmacy Complete Set By: Herman Murphy Pharm.D., R.Ph. at 09/06/2021 3:48 PM Taking? Last Dose Informant Start Date End Date LT aspirin 81 mg chewable tablet -- -- Chew 81 mg daily. atorvastatin (LIPITOR) 20 mg tablet -- -- Take 20 mg by mouth daily. buPROPion (WELLBUTRIN) 100 mg tablet -- -- Take 100 mg by mouth daily. gemfibroziL (LOPID) 600 mg tablet -- -- Take 600 mg by mouth 2 (two) times a day before breakfast and dinner. LORazepam (ATIVAN) 0.5 mg tablet -- -- Take 0.5 mg by mouth at bedtime as needed (sleep). metoprolol succinate (TOPROL-XL) 25 mg 24 hr tablet -- -- Take 25 mg by mouth 2 (two) times a day. Do not crush or chew. omeprazole (PriLOSEC) [address] capsule -- -- Take 40 mg by mouth every morning before breakfast. oxyCODONE-acetaminophen (PERCOCET) 7.5-325 mg per tablet -- -- Take 1 tablet by mouth every 6 (six) hours as needed for pain. pregabalin (LYRICA) 100 mg capsule -- -- Take 100 mg by mouth 2 (two) times a day. SITagliptin (JANUVIA) 100 mg tablet -- -- Take 100 mg by mouth daily. [employer] documented in this encounter H&P Notes Sheeba Bates M.B., B.Chir. - 09/07/2021 10:23 AM CST I agree with the history, physical examination, evaluation documented by Dr. Neil dated August,. 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 He has had a 10-year history of a GI syndrome associated with episodes of severe abdominal pain in the rightlower quadrant associated with a small bowel obstruction and loose stools with inability to eat withnausea and vomiting, and then this resolves by itself within a day or so. CT scans have shown evidence for a small bowel obstruction. He has been treated empirically with steroids for these episodes over the last 10 years. He has had about 6 episodes of this. Of note, he was on high-dose Aleve until about 5 years ago. Most recent episode occurred in July, and then he had an episode yesterday, but this morning he is feeling much improved. He has been on his prednisone taper that was discontinued on the [address] scan does demonstrate distal ileal hyperenhancement. Very reluctant to start NG tube. Of note, he has had a prior periumbilical hernia repair with mesh placement as well. Denies any tobacco use. OBJECTIVE PHYSICAL EXAMINATION General: Looks well. Overweight for height. Abdomen: Soft. ASSESSMENT / PLAN #1 Intermittent small bowel obstruction Lawson Whitley is a 46-year-old man with intermittent small bowel obstructions. He is not on an NELLIE inhibitor. His symptoms occur stereotypically and resolve very rapidly, and then he is placed on a rapid steroid taper. The differential is either NSAID-induced small bowel disease or inflammatory bowel disease. For the interim, I am going to ask him to be on a liquid diet and then a low-residue diet until we can do an outpatient evaluation with CT enterography and colonoscopy. If he does have a small stricture in the small bowel, consideration for surgery should be entertained. [employer] Raul Neil M.D. - 09/06/2021 11:46 PM CST [facility] Gastroenterology A Admission Note SUBJECTIVE CHIEF COMPLAINT Small Bowel Obstruction HISTORY OF PRESENT ILLNESS Mr. Lawson Wihtley is a 46 y.o. male who presents with small bowel obstruction. Mr. Whitley is a 41-year-old man who has had a ten year GI syndrome associated with episodes of abdominal pain localized in both lower quadrants, right more than left, and intermittent obstruction. This is associated with the prodrome of watery, almost explosive diarrhea, worsening abdominal pain, unable to eat, and then eventually nausea and vomiting. He has been hospitalized 6 times over this period of time, most recently in July. He never has diarrhea without subsequent obstructive symptoms,,each time resulting in about a week admission. During multiple of these admissions, he has been obstipated in the past but has never had an NG tube per his recollection. Intermittently these episodes of diarrhea will be associated with red specks that look like blood to him. Most recent admission July of this year. Before that, it had been three years. Again, as with each other admission, he received high dose prednisone for about 1 week foll In between acute episodes, no symptoms. Regular bowel habits. He has had three colonoscopies, two of which suggested the possibility of mild ileal inflammation including one exam that showed localized aphthous ulcers. The biopsies only showed nonspecific focal ileitis. [facility] saw him here in 2016, said no dx of IBD, seems steroid responsive but not appropriate for long-term immunosuppression w/o dx criteria and proposed colonoscopy and CT enterography here. He did thecolonoscopy only, which was totally normal. He has had one upper endoscopy around 2013 that was essentially normal. No duodenal biopsies were done. He did undergo pill enteroscopy at [facility] which was unrevealing, date unclear. In early July, he had gradual onset of abdominal pain in the right upper quadrant which is typical for these episodes for him. He became nauseous and with decreased p.o. tolerance and presented to the [facility] where he was admitted. He was treated with prednisone for roughly 7 days in then put on a taper and discharged. He was taking food p.o. but continued to have significant pain and diarrhea though is much improved from presentation. However, this rapidly worsened 09/04/21 and was progressive leading up to his presentation here. He presents with moderate to severe right upper quadrant pain, bloating, nausea. He continues to have diarrhea and passed gas. Complete p.o. intolerance except to ice chips. Last prednisone dose (on taper)08/24 , no clear progression since stopping, just sudden worsening on the . Though inflamed, CT does not show evidence of wall edema. No peritonitis, hypotension, obstipation>24 hours, or other high risk features to warrant emergent surgical evaluation. On presentation, vitals with slight hypertension, tachycardia, but otherwise within normal limits. Labs are very reassuring and essentially all within normal limits. Radius Corner Machine Operator film from initial CT showed significant gastric distention but after placement of NG tube, which induced 1 episode of emesis and also with subsequent suctioning of about 60 mils gastric contents,repeat abdominal x-ray with only moderate distension. Patient was extremely anxious and required ativan and haldol PRNs to tolerate NG and suction. We did discuss with CRS who agreed with keeping NG tube placed. They explained that though there wasminimal return with suctioning that is likely due to decreased gastric contents on subsequent films.They did not see a need for urgent surgical evaluation based on our phone conversation. Ultimately, patient did not tolerate the NG tube and demanded it be removed at a even after our discussion of therisks of doing so and the fact that it would likely need to be replaced overnight or in the morning.We discussed supportive measures such as PRNs for his anxiety any refuse these as well. Given the nature of the obstruction, gastrografin potentially low yield-- will reassess in the a.m. Importantly, he did have a prior periumbilical hernia repair with mesh placement. He also reports previously, greater than 10 years ago, using large doses of ibuprofen multiple timesa day for various aches and pains. He says he stopped doing this when he developed current gastrointestinal issues. Social: No tobacco, no alcohol, no drug use Family: Mother has IBD, no cancer history I have reviewed and updated the following: Past Medical History, Family History, Social History, andAllergies. Current Outpatient Medications on File Prior to Encounter: ??? aspirin 81 mg chewable tablet, Chew 81 mg daily. ??? atorvastatin (LIPITOR) 20 mg tablet, Take 20 mg by mouth daily. ??? buPROPion (WELLBUTRIN) 100 mg tablet, Take 100 mg by mouth daily. ??? gemfibroziL (LOPID) 600 mg tablet, Take 600 mg by mouth 2 (two) times a day before breakfast anddinner. ??? LORazepam (ATIVAN) 0.5 mg tablet, Take 0.5 mg by mouth at bedtime as needed (sleep). ??? metoprolol succinate (TOPROL-XL) 25 mg 24 hr tablet, Take 25 mg by mouth 2 (two) times a day. Donot crush or chew. ??? omeprazole (PriLOSEC) [address] capsule, Take 40 mg by mouth every morning before breakfast. ??? oxyCODONE-acetaminophen (PERCOCET) 7.5-325 mg per tablet, Take 1 tablet by mouth every 6 (six) hours as needed for pain. ??? pregabalin (LYRICA) 100 mg capsule, Take 100 mg by mouth 2 (two) times a day. ??? SITagliptin (JANUVIA) 100 mg tablet, Take 100 mg by mouth daily. REVIEW OF SYSTEMS Negative other than that reviewed in HPI OBJECTIVE VITAL SIGNS Temperature: [36.4 ??C-36.9 ??C] 36.8 ??C Resp Rate: [15-19] 17 Blood Pressure: (132-150)/(78-97) 134/84 SpO2: [92 %-96 %] 95 % Height: [185.4 cm] 185.4 cm Weight: [120 kg] 120 kg BSA (Calculated - sq m): [2.48 sq meters] 2.48 sq meters BMI (Calculated): [34.9 kg/m??] 34.9 kg/m?? Pulse Rate: [91-119] 91 PHYSICAL EXAM Constitutional: Anxious, very uncomfortable with NG tube despite PRNs, no acute respiratory distresson room air Eyes: PERRL, EOMI, no conjunctival injection HENT: moist MM, no pharyngeal erythema or exudates Neck: No JVD Cardio: Regular rate and rhythm, no murmurs, rubs or gallops, +2 radial pulses bilaterally, No LE edema Resp: breathing comfortably on room airGi: soft, normal Bowel sounds, nontender to palpation MSK: no gross deformities of extremities appreciated Skin: No visible rash Neuro: alert, conversing appropriately, spontaneous movement of all 4 extremities Psych: Congruent mood and affect ASSESSMENT / PLAN Mr. Whitley is hospitalized on [facility] G[facility]ology A for evaluation and management of Small Bowel Stricture Personal History. Presents with syndrome of small-bowel obstruction and imaging which would support complete obstruction. Complex history of episodic symptoms with a obstructive pattern and imaging and tissue evidence of inflammation of a short segment of distal small bowel/ileum. He has never had clear evidence of systemic inflammation during any of these episodes per my chart review, though records are limited. He also has other potential etiologies for stricturing including mesh hernia repair, NSAID enteropathy. This episode is not most notable for immediately following prednisone taper and potentially, if thisdoes represent inflammatory ileitis, he is no longer in ending acute inflammatory stage after steroid regimen. He has never required chronic immunosuppressive therapy and, until very recently, had only infrequent though significant episodic symptoms. He did not tolerate NG tube placement and demanded it be removed. He was refusing further PRNs to manage his anxiety. Ongoing management will require consideration for involving surgery, decompression as needed in setting of patient's intolerance to NG tube, consideration for steroids given his prior response. # Small Bowel Stricture Personal History # small-bowel obstruction [ ] Obtain records from [facility] [ ] Consider Surg consult inpt vs outpatient? [ ] Consider steroids [ ] Monitor symptoms closely #T2DM Hold Januvia 100 mg daily Moderate SSI # Fibromyalgia # anxiety On Wellbutrin 100 mg daily, Lyrica 100 mg twice daily. If patient is not able to advance to p.o. medications in the near future may have to discuss alternatives. Hold home oxycodone-acetaminophen Ativan 1 mg injection q.4 hours p.r.n. Haloperidol 2mg IM every 8 hours p.r.n. # unspecified cardiac disease Patient undergoing workup. Unclear in care everywhere but his diagnoses are. Obtain outside records. When able, consider restarting home atorvastatin 20 mg daily, gemfibrozil 600 mg daily, metoprolo 25mg 2 times daily Baseline Mobility: BMAT Level 4 (Able to stand and walk) Diet: NPO diet Tubes/lines: PIV VTE prophylaxis: enoxaparin Code status: Full Code Surrogate Decision Maker: Spouse, Terra Disposition: Uncertain EMPLOYEE HEALTH documented in this encounter Nursing Notes Ana Avila RCiera. - 09/08/2021 1:41 PM CST PIV removed, VSS, AVS and education completed. Patient stated he had no further questions. Patient and had questions before discharge, service came to bedside to discuss. Patient confirmed he feltfine walking out with , no transportation needed. EMPLOYEE HEALTH Annie De La Paz RLouise - 09/08/2021 6:08 AM CST Problem: PAIN - ADULT Goal: PT VERBALIZES/DEMONSTRATES ADEQUATE COMFORT LEVEL OR BASELINE Outcome: Progressing Problem: KNOWLEDGE DEFICIT Goal: Patient/family/caregiver demonstrates understanding of disease process, treatment plan, medications, and discharge instructions Outcome: Progressing Shift Goals: Clinical Goals for the Shift: Patient's pain will be adequately control during the shift. Identify possible barriers to meeting goals/advancing plan of care: no barriers End of Shift Summary: Goal met. Patient's pain was adequately control with PRN pain medication. VSS and was pleasantly cooperated with cares. Plan for this morning is to advance patient's diet and workon pain control. Masha Bravo R.N. - 09/07/2021 5:07 PM CST Shift Goals: Clinical Goals for the Shift: patient will have adequate pain control. Identify possible barriers to meeting goals/advancing plan of care: End of Shift Summary: Pt remained safe and free from falls. Remained vitally stable. Pt has been up ad vance in room and johnson. Pt complained of having some chest pain this afternoon. RN notified service and they ordered an EKG. Plan is to discharge tomorrow if patient is feeling well. CT scan is scheduled to be outpatient for Monday (09/10). See notes below Problem: SKIN/TISSUE INTEGRITY Goal: Oral and Nasal mucous membranes remain intact Outcome: Progressing Note: Pt was transitioned to a full liquid diet and has been tolerating that. Problem: PAIN - ADULT Goal: PT VERBALIZES/DEMONSTRATES ADEQUATE COMFORT LEVEL OR BASELINE Note: Pt complained of pain throughout the day rating it 6/10. PRN IV dilaudid was given (see MAR). Pt stated that the dilaudid seemed to help. EMPLOYEE HEALTH Annie De La Paz R.N. - 09/07/2021 6:24 AM CST Problem: PAIN - ADULT Goal: PT VERBALIZES/DEMONSTRATES ADEQUATE COMFORT LEVEL OR BASELINE Outcome: Progressing Problem: KNOWLEDGE DEFICIT Goal: Patient/family/caregiver demonstrates understanding of disease process, treatment plan, medications, and discharge instructions Outcome: Progressing Problem: SAFETY ADULT Goal: Maintain a safe environment Outcome: Progressing Shift Goals: Clinical Goals for the Shift: patient's pain will be adequately control during the shift. Identify possible barriers to meeting goals/advancing plan of care: no barriers End of Shift Summary: Goal met. VSS and pain was well controlled once the NGT removed. Patient denied pain through out the shift. Patient slept most of the night. Patient had about 7 hours of sleep during the shift. Overall, patient had a restful night. EMPLOYEE HEALTH documented in this encounter Miscellaneous Notes Hospital Course - Shannon Rushing M.B., B.Ch. - 09/07/2021 10:52 PM RN EMPLOYEE HE[employer] Mr. 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 He has been hospitalized 6 times over this period of time, most recently in July. He never has d iarrhea without subsequent obstructive symptoms, each time resulting in about a week admission. He presents with sudden onset moderate to severe right upper quadrant pain, bloating, nausea, diarrhea, and complete p.o. intolerance except to ice chips. Per patient, each prior episode has been treated with prednisone taper. He has had three colonoscopies, two of which suggested the possibility of mild ileal inflammation including one exam that showed localized aphthous ulcers. The biopsies only showed nonspecific focal ileitis. [facility] saw him here in 2016, said no dx of IBD, seems steroid responsive but not appropriate for long-term immunosuppression w/o dx criteria and proposed colonoscopy and CT enterography here. He did the colonoscopy only, which was totally normal. He has had one upper endoscopy around 2013 that was essentially normal. No duodenal biopsies were done. He did undergo pill enteroscopy at [facility] which was unrevealing, date unclear. In early July, he had gradual onset of abdominal pain in the right upper quadrant which is typical for these episodes for him. He became nauseous and with decreased p.o. tolerance and presented to the [facility] where he was admitted. He was treated with prednisone for roughly 7 days in then put on a taper and discharged. He was taking food p.o. but continued to have significant pain and diarrhea though is much improved from presentation. However, this rapidly worsened 09/04/21 and was progressive leading up to his presentation here. Last prednisone dose (on taper)08/24 , no clear progression since stopping, just sudden worsening on the . CT demonstrated segmental wall thickening, narrowing, and hyperenhancement in the colon (for exampleseries 2, image 82 on the left and image 68 on the right) and in the small bowel. Multiple short segments of narrowing in the distal small bowel compatible with strictures. Associated gradual upstream dilation measuring up to 4.1 cm. Labs including CBC, BMP, ESR, CRP reassuring and essentially all within normal limits. [employer] Machine Operator film from initial CT showed significant gastric distention. NG tube was placed overnight whichinduced emesis (unknown volume). Small volume of < 100mL suctioned within the first 2 hours, at which point patient could no longer tolerate NG tube despite PRNs, at which time NG tube as removed. This did, however, result in significant symptomatic improvement. On the morning of 09/07/21, he denied any subsequent symptomatic worsening, even without an NG tube. He was started on a clear liquid diet and advanced to a soft diet which was well tolerated. On the morning of 09/08 he continued to improve and was suitable for discharge for outpatient follow up. It wassuspected that the small bowel stricture may be related to scarring from a history of NSAID use. He was scheduled for outpatient CT enterography on 09/10 and colonoscopy on 09/13. He will be called with the results of these exams. PHYSICAL EXAM Constitutional: Comfortable, sitting on the edge of the bed. Eyes: EOMI, no conjunctival injection HENT: moist MM, no pharyngeal erythema or exudates Neck: No JVD Cardio: Regular rate and rhythm, no murmurs, rubs or gallops, +2 radial pulses bilaterally, No LE edema Resp: breathing comfortably on room air Gi: soft, normal Bowel sounds, nontender to palpation MSK: no gross deformities of extremities appreciated Skin: No visible rash Neuro: alert, conversing appropriately, spontaneous movement of all 4 extremities Psych: Congruent mood and affect EMPLOYEE HEALTH documented in this encounter Plan of Treatment Not on filedocumented as of this encounter Procedures Procedure Name Priority Date/Time Associated Comments Diagnosis GLUCOSE POCT, B Routine 09/08/2021 1:27 Results f or PM RN [employer]OYEE [employer] this procedure are in the results section. GLUCOSE POCT, B Routine 09/08/2021 7:25 Results f or AM RN [employer] this procedure are in the results section. GLUCOSE POCT, B Routine 09/07/2021 8:41 Results f or PM RN [employer] this procedure are in the results section. GLUCOSE POCT, B Routine 09/07/2021 3:58 Results f or PM RN [employer] this procedure are in the results section. ECG Routine 09/07/2021 2:26 Results for PM RN [employer] this procedure are in the results section. GLUCOSE POCT, B Routine 09/07/2021 11:29 Results for AM RN [employer] this procedure are in the results section. GLUCOSE POCT, B Routine 09/07/2021 8:07 Results f or AM RN [employer] this procedure are in the results section. CBC WITH Routine 09/07/2021 6:27 Results for DIFFERENTIAL, B AM RN [employer]OYEE [employer] this procedu re are in the results section. LACTATE, B/P Routine 09/07/2021 6:27 Results for AM RN [employer] this procedure are in the results section. BASIC METABOLIC Routine 09/07/2021 6:27 Results f or PANEL, S/P AM RN [employer] this procedure are in the results section. GLUCOSE POCT, B Routine 09/07/2021 6:26 Results f or AM RN [employer] this procedure are in the results section. DX ABDOMEN PORTABLE RAD - Semiurgent 09/06/2021 9:05 R esults for ANTERIOR POSTERIOR 1 (Fast; most ED PM RN EMPLOYEE HE[employer] this procedure VIEW patients; some are in the inpatients) results section. GLUCOSE POCT, B Routine 09/06/2021 8:59 Results f or PM RN [employer] this procedure are in the results section. ECG Routine 09/06/2021 8:55 Results for PM RN [employer] this procedure are in the results section. DX ABDOMEN PORTABLE RAD - Routine 09/06/2021 7:15 Resu lts for ANTERIOR POSTERIOR 1 (most inpatients PM RN EMPLOYEE [employer] thi s procedure VIEW and all are in the outpatients) results section. CBC WITH STAT 09/06/2021 6:35 Results for DIFFERENTIAL, B PM RN [employer] this procedu re are in the results section. C-REACTIVE PROTEIN STAT 09/06/2021 6:35 Result s for (CRP), S/P PM RN [employer] this procedure are in the results section. LIPASE, S/P STAT 09/06/2021 6:35 Results for PM RN [employer] this procedure are in the results section. COMPREHENSIVE STAT 09/06/2021 6:35 Results for METABOLIC PANEL, S/P PM RN [employer] this pr ocedure are in the results section. SEDIMENTATION RATE, B Routine 09/06/2021 6:31 Res ults for PM RN [employer]OYEE [employer] this procedure are in the results section. GLUCOSE POCT, B Routine 09/06/2021 5:44 Results f or PM RN [employer] this procedure are in the results section. CREATININE WITH EGFR, Routine 09/06/2021 4:32 Res ults for S/P PM RN [employer] this procedure are in the results section. INTERPRETATION OF RAD - Routine 09/06/2021 4:23 Result s for OUTSIDE CT ABDOMEN (most inpatients PM RN EMPLOYEE HE[employer] this procedure AND OR PELVIS and all are in the outpatients) results section. INTERPRETATION OF RAD - Routine 09/06/2021 4:23 Result s for OUTSIDE CT CHEST (most inpatients PM RN [employer]PLOYEE HE[employer] this pr ocedure and all are in the outpatients) results section. documented in this encounter Results (ABNORMAL) Glucose, POCT (09/08/2021 1:27 PM RN [employer]) Analysis Performed At Patho logist Time Signature Glucose, POCT, 146 (H) 70 - 140 09/08/2021 [facility] B mg/dL 1:33 PM RN [employer] Site Capillary 09/08/2021 [facility] 1:33 PM RN [employer] Last Intake 3-4 hours 09/08/2021 [facility] 1:33 PM RN [employer]EE [employer] Specimen Anatomical Collection Method Collection Time Receive d Time (Source) Location / / Volume Laterality Blood 09/08/2021 1:27 PM 2 1:33 RN EMPLOYEE HE[employer] PM RN EMPLOYEE HEALTH Unknown Provider LAB POCT ORDERABLES-MANUAL Performing Organization Address City/State/ZIP Code Phon e Number POC [facility] [address] [place] [address] [place] [address] [place] [facility] [address] (ABNORMAL) Glucose, POCT (09/08/2021 7:25 AM RN [employer]) Analysis Performed At Patho logist Time Signature Glucose, POCT, 157 (H) 70 - 140 09/08/2021 [facility] B mg/dL 7:47 AM RN [employer] Site Capillary 09/08/2021 [facility] 7:47 AM RN [employer] Last Intake > 4 hours 09/08/2021 [facility] 7:47 AM RN [employer] Specimen Anatomical Collection Method Collection Time Receive d Time (Source) Location / / Volume Laterality Blood 09/08/2021 7:25 AM 2 7:47 RN EMPLOYEE HE[employer] AM RN EMPLOYEE HE[employer] Unknown Provider LAB POCT ORDERABLES-MANUAL Performing Organization Address [facility] Phon e Number POC [facility] [address] [place] [address] [place] [address] [place] [facility] [address] [facility] Glucose, POCT (09/07/2021 8:41 PM RN [employer]) Analysis Performed At Patho logist Time Signature Glucose, POCT, 134 70 - 140 09/07/2021 [facility] B mg/dL 8:44 PM RN [employer] Last Intake 2-3 hours 09/07/2021 [facility] 8:44 PM RN [employer] Specimen Anatomical Collection Method Collection Time Receive d Time (Source) Location / / Volume Laterality Blood 09/07/2021 8:41 PM 2 8:44 RN EMPLOYEE HE[employer] PM RN EMPLOYEE HE[employer] Unknown Provider LAB POCT ORDERABLES-MANUAL Performing Organization Address [facility] Phon e Number POC [facility] [address] [place] [address] [place] [address] [place] [facility] [address] [facility] Glucose, POCT (09/07/2021 3:58 PM RN [employer]) Analysis Performed At Patho logist Time Signature Glucose, POCT, 120 70 - 140 09/07/2021 [facility] B mg/dL 4:02 PM RN [employer] Last Intake 2-3 hours 09/07/2021 [facility] 4:02 PM RN [employer] Specimen Anatomical Collection Method Collection Time Receive d Time (Source) Location / / Volume Laterality Blood 09/07/2021 3:58 PM 2 4:02 RN EMPLOYEE HE[employer] PM RN EMPLOYEE HE[employer] Unknown Provider LAB POCT ORDERABLES-MANUAL Performing Organization Address [facility] Phon e Number POC [facility] [address] [place] [address] [place] [address] [place] [facility] [address] [facility] ECG 12 Lead (09/07/2021 2:26 PM RN EMPLOYEE [employer]) P athologist Signature Ventricular Rate 94 BPM MUSE ECG/Min [place] Interval 166 ms MUSE QRSD Interval 116 ms MUSE QT Interval 358 ms MUSE QTC Interval 447 ms MUSE P [place] 31 degrees MUSE R [place] 0 degrees MUSE T Wave [place] 36 degrees MUSE Specimen Anatomical Collection Method Collection Time Receive d Time (Source) Location / / Volume Laterality 09/07/2021 2:26 PM 2 2:33 RN [employer]PLOYEE HE[employer] PM RN EMPLOYEE HE[employer] Impressions MUSE - 09/07/2021 2:33 PM RN [employer] Normal sinus rhythm Normal ECG When compared with ECG of 06-SEP-2021 20 :55, No significant change was found Reviewed by SUSAN Alvarez Narrative This result has an attachment that is no t available. Procedure Note Laron Perez Jr., M.D. - 09/07/2021For matting of this note might be different from the original. IMPRESSION: Normal sinus rhythm Normal ECG When compared with ECG of 06-SEP-2021 20 :55, No significant change was found Reviewed by SUSAN Alvarez [place], B.Ch. ECG ORDERABLES Performing Organization Address City/[facility]/ZIP Code Phon e Number MUSE MUSE NA (ABNORMAL) Glucose, POCT (09/07/2021 11:29 AM RN EMPLOYEE HE[employer]) P athologist Signature Glucose, POCT, 153 (H) 70 - 140 09/07/2021 [facility] B mg/dL 11:36 AM RN [employer] Specimen Anatomical Collection Method Collection Time Receive d Time (Source) Location / / Volume Laterality Blood 09/07/2021 11:29 09/07/2021 AM RN EMPLOYEE HE[employer] 11:36 AM RN EMPLOYEE HE[employer] Unknown Provider LAB POCT ORDERABLES-MANUAL Performing Organization Address City/[facility]/ZIP [facility] Phon e Number POC [facility] [address] [place] [address] [facility] [place], [place] [id number] [place] [address] (ABNORMAL) Glucose, POCT (09/07/2021 8:07 AM RN [employer]) P athologist Signature Glucose, POCT, 164 (H) 70 - 140 09/07/2021 [facility] B mg/dL 8:32 AM RN [employer] Specimen Anatomical Collection Method Collection Time Receive d Time (Source) Location / / Volume Laterality Blood 09/07/2021 8:07 AM 8:32 RN EMPLOYEE HE[employer] AM RN EMPLOYEE HE[employer] Unknown Provider LAB POCT ORDERABLES-MANUAL Performing Organization Address City/[facility] Phon e Number POC [facility] [address] [place] [address] [facility] [place] [address] [facility] [address] Lactate (09/07/2021 6:27 AM RN [employer]PL[employer]) P athologist Signature Lactate, P 1.1 0.5 - 2.2 09/07/2021 [facility] mmol/L 7:35 AM RN [employer] Specimen Anatomical Collection Method Collection Time Receive d Time (Source) Location / / Volume Laterality Blood (Blood, 09/07/2021 6:27 AM 09/07/19 7:19 Venous) RN EM[employer]OYEE HE[employer] AM RN EM[employer]EE [employer] Raul Neil M.D. LAB BLOOD NON ADD-ON Performing Organization Address City/State/ZIP Code Phon e Number [facility] [place] [address] [place] [address] [facility] [place] [address] [facility] [address] (ABNORMAL) Basic Metabolic Panel (09/07/2021 6:27 AM RN [employer]) athologist Signature Potassium, S 4.3 3.6 - 5.2 09/07/2021 [facility] mmol/L 7:39 AM RN [employer] Sodium, S 139 135 - 145 09/07/2021 [facility] mmol/L 7:39 AM RN [employer] Chloride, S 105 98 - 107 09/07/2021 [facility] mmol/L 7:39 AM RN [employer] Bicarbonate, S 23 22 - 29 09/07/2021 D[facility] mmol/L 7:39 AM RN [employer] Anion Gap 11 7 - 15 09/07/2021 DTL 7:39 AM RN [employer] BUN (Blood Urea 15 8 - 24 09/07/2021 DTL Nitrogen), S mg/dL 7:39 AM RN [employer] Creatinine 0.94 0.74 - 09/07/2021 DTL 1.35 mg/dL 7:39 AM RN [employer] eGFR-Non >90 >=60 09/07/2021 DTL Black/ mL/min/BSA 7:39 AM RN [employer] [place] Comment: ----ADDITIONAL INFORMATION---- Estimated GFR calculated using the 2009 CKD_EPI creatinine equation. eGFR-Black/ >90 >=60 mL/min/BSA 2021 7:39 AM RN [employer] DTL Comment: ----ADDITIONAL INFORMATION---- Estimated GFR calculated using the 2009 CKD_EPI creatinine equation. Calcium, Total, S 8.5 (L) 8.6 - 10.0 mg/dL 09/07/2021 7:39 AM RN [employer] DTL Glucose, S 150 (H) 70 - 140 mg/dL 09/07/2021 7:39 AM RN [employer] D TL Specimen Anatomical Collection Method Collection Time Receive d Time (Source) Location / / Volume Laterality Blood (Blood, 09/07/2021 6:27 AM 09/07/19 7:20 Venous) RN [employer] AM RN [employer] Raul Neil M.D. LAB BLOOD ADD-ON Performing Organization Address City/State/ZIP Code Phon e Number [facility] - [address] [place] [address] [facility] [place] [address] [facility] [address] [facility] (ABNORMAL) CBC with Differential, Blood (09/07/2021 6:27 AM RN [employer]) [facility] gist Method Time Signature Hemoglobin 13.9 13.2 - 09/07/2021 DTL 16.6 g/dL 7:08 AM RN [employer] Hematocrit 43.2 38.3 - 09/07/2021 DTL 48.6 % 7:08 AM RN [employer] Erythrocytes 4.65 4.35 - 09/07/2021 DTL 5.65 7:08 AM RN [employer] x10(12)/L MCV 92.9 78.2 - 09/07/2021 DTL 97.9 fL 7:08 AM RN [employer] RBC Distrib Width 14.7 (H) 11.8 - 09/07/2021 DTL 14.5 % 7:08 AM RN [employer] Platelet Count 284 135 - 317 09/07/2021 DTL x10(9)/L 7:08 AM RN [employer] Leukocytes 5.1 3.4 - 9.6 09/07/2021 DTL x10(9)/L 7:08 AM RN [employer] Neutrophils 3.14 1.56 - 09/07/2021 DTL 6.45 7:08 AM RN [employer] x10(9)/L Lymphocytes 1.33 0.95 - 09/07/2021 DTL 3.07 7:08 AM RN [employer] x10(9)/L Monocytes 0.46 0.26 - 09/07/2021 DTL 0.81 7:08 AM RN [employer] x10(9)/L Eosinophils 0.13 0.03 - 09/07/2021 DTL 0.48 7:08 AM RN [employer] x10(9)/L Basophils <0.03 0.01 - 09/07/2021 DTL 0.08 7:08 AM RN [employer] x10(9)/L Specimen Anatomical Collection Method Collection Time Receive d Time (Source) Location / / Volume Laterality Blood (Blood, 09/07/2021 6:27 AM 09/07/19 7:00 Venous) RN [employer] AM RN [employer] Raul Neil M.D. LAB BLOOD ADD-ON Performing Organization Address City/State/ZIP Code Phon e Number [facility] - [address] [place], [place] [address] [facility] [place] [address] [facility] [address] [facility] (ABNORMAL) Glucose, POCT (09/07/2021 6:26 AM RN [employer]) Analysis Performed At Patho logist Time Signature Glucose, POCT, 148 (H) 70 - 140 09/07/2021 [facility] B mg/dL 6:28 AM RN [employer] Site Capillary 09/07/2021 [facility] 6:28 AM RN [employer] Last Intake NPO 09/07/2021 [facility] 6:28 AM RN [employer] Specimen Anatomical Collection Method Collection Time Receive d Time (Source) Location / / Volume Laterality Blood 09/07/2021 6:26 AM 6:28 RN [employer] AM RN [employer] Unknown Provider LAB POCT ORDERABLES-MANUAL Performing Organization Address [facility]/ZIP [facility] Phon e Number POC [facility] [address] [place] [address] [place] [address] [place] [facility] [address] [facility] DX Abdomen Portable Anterior Posterior 1 View (09/06/2021 9:05 PM RN [employer]) Anatomical Region Laterality Modality Abdomen, Abdominal RST LOS, Abdominal ARZ LOS, N/A Digital Radiography Abdominal FLA LOS Specimen (Source) Anatomical Collection Method Collection Time Re ceived Time Location / / Volume Laterality 09/06/2021 9:11 PM RN [employer] Impressions 09/07/2021 8:01 AM RN [employer] Enteric tube with tip and sidehole in the stomach. Nonobstructive bowel gas pattern. Residual contrast within the urinary alejandro dder. Narrative 09/07/2021 8:01 AM RN [employer] EXAM: ??DX ABDOMEN PORTABLE ANTERIOR POSTERIOR 1 VIEW Procedure Note Braulio Gonzalez M.B.B.S., M.D. - EXAM: DX ABDOMEN PORTABLE ANTERIOR POSTE RIOR 1 VIEW IMPRESSION: Enteric tube with tip and sidehole in th e stomach. Nonobstructive bowel gas pattern. Residual contrast within the urinary alejandro dder. Raul Neil M.D. IMG DIAGNOSTIC IMAGING PROCE DURES (ABNORMAL) Glucose, POCT (09/06/2021 8:59 PM RN [employer]) Analysis Performed At Patho logist Time Signature Glucose, POCT, 146 (H) 70 - 140 09/06/2021 [facility] B mg/dL 9:07 PM RN [employer] Site Capillary 09/06/2021 [facility] 9:07 PM RN [employer] Last Intake > 4 hours 09/06/2021 [facility] 9:07 PM RN [employer] Specimen Anatomical Collection Method Collection Time Receive d Time (Source) Location / / Volume Laterality Blood 09/06/2021 8:59 PM 2 9:07 RN [employer] PM RN EMPLOYEE [employer] Unknown Provider LAB POCT ORDERABLES-MANUAL Performing Organization Address City/State/ZIP Code Phon e Number POC [facility] [address] [place] [address] [place] [address] [place] [facility] [address] [facility] ECG 12 Lead (09/06/2021 8:55 PM RN [employer]) P athologist Signature Ventricular Rate 118 BPM MUSE ECG/Min [place] Interval 170 ms MUSE QRSD Interval 110 ms MUSE QT Interval 326 ms MUSE QTC Interval 456 ms MUSE P [place] 36 degrees MUSE R [place] 21 degrees MUSE T Wave [place] 41 degrees MUSE Specimen Anatomical Collection Method Collection Time Receive d Time (Source) Location / / Volume Laterality 09/06/2021 8:55 PM 2 9:19 RN [employer] PM RN [employer] Impressions MUSE - 09/06/2021 9:19 PM RN [employer] Sinus tachycardia Low anterior forces Nonspecific T wave abnormality No previous ECGs available Reviewed by SUSAN Wright Narrative This result has an attachment that is no t available. Procedure Note Jacob Villeda M.D. - 09/06/2021 IMPRESSION: Sinus tachycardia Low anterior forces Nonspecific T wave abnormality No previous ECGs available Reviewed by SUSAN Wright Raul Neil M.D. ECG ORDERABLES Performing Organization Address City/State/ZIP Code Phon e Number MUSE MUSE NA DX Abdomen Portable Anterior Posterior 1 View (09/06/2021 7:15 PM RN [facility]) Anatomical Region Laterality Modality Abdomen, Abdominal RST LOS, Abdominal ARZ LOS, N/A Digital Radiography Abdominal FLA LOS Specimen (Source) Anatomical Collection Method Collection Time Re ceived Time Location / / Volume Laterality 09/06/2021 7:16 PM [facility] Impressions 09/06/2021 7:17 PM [facility] NG tube tip in the stomach with side-port near the gastroesophageal junction. Recommend advancing for more optimal positioning p rior to use. Narrative 09/06/2021 7:17 PM [facility] EXAM: ??DX ABDOMEN PORTABLE ANTERIOR POSTERIOR 1 VIEW Procedure Note Martin Dickson M.D. - 09/06/2021Forma tting of this note might be different from the original. EXAM: DX ABDOMEN PORTABLE ANTERIOR POSTE RIOR 1 VIEW IMPRESSION: NG tube tip in the stomach with side-por t near the gastroesophageal junction. Recommend advancing for more optimal positioning p rior to use. Raul Neil M.D. IMG DIAGNOSTIC IMAGING PROCE SHAYNE CRP (C-Reactive Protein) (09/06/2021 6:35 PM [facility]) athologist Signature C-Reactive 6.3 <=8.0 mg/L 09/06/2021 DTL Protein (CRP), 7:38 PM [facility] S Specimen Anatomical Collection Method Collection Time Receive d Time (Source) Location / / Volume Laterality Blood (Blood, 09/06/2021 6:35 PM 09/06/19 7:21 Venous) [facility] PM [facility] [employer] Raul Neil M.D. LAB BLOOD ADD-ON Performing Organization Address City/State/ZIP Code Phon e Number [facility] - [address] [place], [place] [address] [facility] [place] [address] [facility] [address] Lipase (09/06/2021 6:35 PM [facility]) athologist Signature Lipase, S 21 13 - 60 U/L 09/06/2021 7:38 DTL PM [facility] Specimen Anatomical Collection Method Collection Time Receive d Time (Source) Location / / Volume Laterality Blood (Blood, 09/06/2021 6:35 PM 09/06/19 7:21 Venous) [facility] PM [facility] [employer] Raul Neil M.D. LAB BLOOD ADD-ON Performing Organization Address City/State/ZIP Code Phon e Number [facility] - [address] [place], [place] [address] [facility] [place] [address] [facility] [address] (ABNORMAL) Comprehensive Metabolic Panel (09/06/2021 6:35 PM [facility]) athologist Signature Potassium, S 5.0 3.6 - 5.2 09/06/2021 DTL mmol/L 7:39 PM [facility] Sodium, S 138 135 - 145 09/06/2021 DTL mmol/L 7:39 PM [facility] Chloride, S 104 98 - 107 09/06/2021 DTL mmol/L 7:39 PM [facility] Bicarbonate, S 23 22 - 29 09/06/2021 DTL mmol/L 7:39 PM [facility] Anion Gap 11 7 - 15 09/06/2021 DTL 7:39 PM [facility] BUN (Blood Urea 19 8 - 24 09/06/2021 DTL Nitrogen), S mg/dL 7:39 PM [facility] Creatinine 1.23 0.74 - 09/06/2021 DTL 1.35 mg/dL 7:39 PM [facility] eGFR-Non 70 >=60 09/06/2021 DTL Black/ mL/min/BSA 7:39 PM RN [facility] [place] Comment: ----ADDITIONAL INFORMATION---- Estimated GFR calculated using the 2009 CKD_EPI creatinine equation. eGFR-Black/ 81 >=60 mL/min/BSA 2021 7:39 PM [facility] DTL Comment: ----ADDITIONAL INFORMATION---- Estimated GFR calculated using the 2009 CKD_EPI creatinine equation. Calcium, Total, S 9.1 8.6 - 10.0 mg/dL 09/06/2021 7:39 PM [facility] DTL Glucose, S 153 (H) 70 - 140 mg/dL 09/06/2021 7:39 PM [facility] D TL Protein, Total, S 7.2 6.3 - 7.9 g/dL 09/06/2021 7:39 P M [facility] DTL Albumin, S 4.8 3.5 - 5.0 g/dL 09/06/2021 7:39 PM [facility] D TL Aspartate Aminotransferase 17 8 - 48 U/L 09/06/2021 7 :39 PM [facility] DTL (AST), S Alkaline Phosphatase, S 56 40 - 129 U/L 09/06/2021 7: 39 PM [facility] DTL Alanine Aminotransferase 25 7 - 55 U/L 09/06/2021 7:3 9 PM [facility] DTL (ALT), S Bilirubin, Total, S 0.4 <=1.2 mg/dL 09/06/2021 7:39 PM [facility] DTL Specimen Anatomical Collection Method Collection Time Receive d Time (Source) Location / / Volume Laterality Blood (Blood, 09/06/2021 6:35 PM 09/06/19 22 7:21 Venous) [facility] PM [facility] Raul Neil M.D. LAB BLOOD ADD-ON Performing Organization Address City/State/[facility] Code Phon e Number [facility] - [address] [place], [place] [address] [facility] [place] [address] [facility] [address] [facility] (ABNORMAL) CBC with Differential, Blood (09/06/2021 6:35 PM RN [facility]) [facility] gist Method Time Signature Hemoglobin 15.1 13.2 - 09/06/2021 [facility] 16.6 g/dL 6:47 PM RN [facility] Hematocrit 46.6 38.3 - 09/06/2021 [facility] 48.6 % 6:47 PM [facility] Erythrocytes 4.94 4.35 - 09/06/2021 [facility] 5.65 6:47 PM [facility] x10(12)/L MCV 94.3 78.2 - 09/06/2021 [facility] 97.9 fL 6:47 PM RN [facility] RBC Distrib Width 14.8 (H) 11.8 - 09/06/2021 [facility] 14.5 % 6:47 PM [facility] Platelet Count 335 (H) 135 - 317 09/06/2021 [facility] x10(9)/L 6:47 PM [facility] Leukocytes 6.1 3.4 - 9.6 09/06/2021 [facility] x10(9)/L 6:47 PM [facility] Neutrophils 3.93 1.56 - 09/06/2021 [facility] 6.45 6:47 PM [facility] x10(9)/L Lymphocytes 1.42 0.95 - 09/06/2021 [facility] 3.07 6:47 PM [facility] x10(9)/L Monocytes 0.68 0.26 - 09/06/2021 [facility] 0.81 6:47 PM [facility] x10(9)/L Eosinophils 0.10 0.03 - 09/06/2021 [facility] 0.48 6:47 PM [facility] x10(9)/L Basophils <0.03 0.01 - 09/06/2021 [facility] 0.08 6:47 PM [facility] x10(9)/L Specimen Anatomical Collection Method Collection Time Receive d Time (Source) Location / / Volume Laterality Blood (Blood, 09/06/2021 6:35 PM 09/06/19 22 6:45 Venous) [facility] PM [facility] [employer] Raul Neil M.D. LAB BLOOD ADD-ON Performing Organization Address City/State/[facility] Phon e Number [facility] - [address] ST[place] [address] [address] [facility] Sedimentation Rate (09/06/2021 6:31 PM RN [facility]) Analysis Performed At Patho logist Time Signature Sedimentation 12 2 - 12 09/06/2021 DTL Rate, B mm/h 7:41 PM [facility] [employer] Specimen Anatomical Collection Method Collection Time Receive d Time (Source) Location / / Volume Laterality Blood (Blood, 09/06/2021 6:31 PM 09/06/19 22 7:02 Venous) [facility] PM [facility] [employer] Raul Neil M.D. LAB BLOOD ADD-ON Performing Organization Address City/[facility] Phon e Number [facility] - [address] DTL [place] [address] [address] [facility] (ABNORMAL) Glucose, POCT (09/06/2021 5:44 PM [facility]) P athologist Signature Glucose, POCT, 181 (H) 70 - 140 09/06/2021 PCLX B mg/dL 5:48 PM RN [employer] Specimen Anatomical Collection Method Collection Time Receive d Time (Source) Location / / Volume Laterality Blood 09/06/2021 5:44 PM 5:49 [facility] [employer] PM [facility] [employer] Unknown Provider LAB POCT ORDERABLES-MANUAL Performing Organization Address City/[facility]/ZIP Code Phon e Number POC [facility] [address] [place] [address] PCLX [facility] [place] [address] [place] [facility] [address] [facility] Creatinine with Estimated GFR (09/06/2021 4:32 PM RN [facility]) athologist Signature Creatinine 1.27 0.74 - 09/06/2021 DTL 1.35 mg/dL 5:18 PM [facility] eGFR-Non 67 >=60 09/06/2021 DTL Black/ mL/min/BSA 5:18 PM RN [employer] [place] Comment: ----ADDITIONAL INFORMATION---- Estimated GFR calculated using the 2009 CKD_EPI creatinine equation. eGFR-Black/ 78 >=60 mL/min/BSA 2021 5:18 PM RN [facility] DTL Comment: ----ADDITIONAL INFORMATION---- Estimated GFR calculated using the 2009 CKD_EPI creatinine equation. Specimen Anatomical Collection Method Collection Time Receive d Time (Source) Location / / Volume Laterality Blood (Blood, 09/06/2021 4:32 PM 09/06/19 5:02 Venous) [facility] PM [facility] [employer] [facility] Raul Neil M.D. LAB BLOOD ADD-ON Performing Organization Address City/[facility] Code Phon e Number [facility] - [address] [place], [place] [address] [facility] [place] [address] [facility] [address] [facility] Interpretation of Outside CT Abdomen and or Pelvis (09/06/2021 4:23 PM RN [facility]) Anatomical Region Laterality Modality Abdomen, Pelvis, Abdominal RST LOS, Abdominal ARZ LOS, N/A Computed Tomography Abdominal FLA LOS, Other Specimen (Source) Anatomical Collection Method Collection Time Re ceived Time Location / / Volume Laterality 09/06/2021 6:03 PM RN [employer] Impressions 09/06/2021 6:39 PM [facility] [employer] 1. Findings compatible with Crohn's disease. At least low-grade mechanical small bowel obstruction related to narrowed/strictured small bow el disease. 2. Portal venous gas in the liver withou t definite source although the stomach is suggested given additional gas present in portal vessels about the stomach. Narrative 09/06/2021 6:39 PM RN [employer] EXAM: ??INTERPRETATION OF OUTSIDE CT ABDOMEN AND OR PELVIS with IV contrast dated 09/06/2021. COMPARISON: ??CT abdomen and pelvis 07/25. FINDINGS: ?? Findings compatible with known Crohn's d isease including segmental wall thickening, narrowing, and hyperenhancement in the colon (for examp le series 2, image 82 on the left and image 68 on the right) and in the small bowel. Multiple short s egments of narrowing in the distal small bowel compatible with strictures. Associated gradual upst ream dilation measuring up to 4.1 cm. Scattered branching small volume portal venous gas throughout the liver (for example series 4, image 56). Additional portal venous gas and ve ssels about the greater and lesser curvatures of the stomach (for example series 2, image 63). No def inite pneumatosis. No definite free intraperitoneal air. Gallbladder distention. Calcified splenic granulomas. Bibasilar lung atelectasis/scarring. Calcifications in the right middle lobe could represent granulomas. Calcified mediastinal and right hilar lymph nodes. Mild degenerative changes of the spine. Procedure Note Otf Adler M.D. - 09/06/2021Format ting of this note might be different from the original. EXAM: INTERPRETATION OF OUTSIDE CT ABDOM EN AND OR PELVIS with IV contrast dated 09/06/2021. COMPARISON: CT abdomen and pelvis 2017. FINDINGS: Findings compatible with known Crohn's d isease including segmental wall thickening, narrowing, and hyperenhancement in the colon (for examp le series 2, image 82 on the left and image 68 on the right) and in the small bowel. Multiple short s egments of narrowing in the distal small bowel compatible with strictures. Associated gradual upst ream dilation measuring up to 4.1 cm. Scattered branching small volume portal venous gas throughout the liver (for example series 4, image 56). Additional portal venous gas and ve ssels about the greater and lesser curvatures of the stomach (for example series 2, image 63). No def inite pneumatosis. No definite free intraperitoneal air. Gallbladder distention. Calcified splenic granulomas. Bibasilar lung atelectasis/scarring. Calcifications in the right middle lobe could represent granulomas. Calcified mediastinal and right hilar lymph nodes. Mild degenerative changes of the spine. IMPRESSION: 1. Findings compatible with Crohn's dise ase. At least low-grade mechanical small bowel obstruction related to narrowed/strictured small bow el disease. 2. Portal venous gas in the liver withou t definite source although the stomach is suggested given additional gas present in portal vessels about the stomach. Raul MCGOVERN CT PROCEDURES Interpretation of Outside CT Chest (09/06/2021 4:23 PM RN [employer]) Anatomical Region Laterality Modality Chest, Thoracic RST LOS, Thoracic ARZ LOS, Thoracic N/A Computed Tomography FLA LOS, Other, Body Specimen (Source) Anatomical Collection Method Collection Time Re ceived Time Location / / Volume Laterality 09/06/2021 6:03 PM RN [employer] Impressions 09/06/2021 6:39 PM [facility] [employer] 1. Findings compatible with Crohn's disease. At least low-grade mechanical small bowel obstruction related to narrowed/strictured small bow el disease. 2. Portal venous gas in the liver withou t definite source although the stomach is suggested given additional gas present in portal vessels about the stomach. Narrative 09/06/2021 6:39 PM RN [employer] EXAM: ??INTERPRETATION OF OUTSIDE CT ABDOMEN AND OR PELVIS with IV contrast dated 09/06/2021. COMPARISON: ??CT abdomen and pelvis 07/25. FINDINGS: ?? Findings compatible with known Crohn's d isease including segmental wall thickening, narrowing, and hyperenhancement in the colon (for examp le series 2, image 82 on the left and image 68 on the right) and in the small bowel. Multiple short s egments of narrowing in the distal small bowel compatible with strictures. Associated gradual upst ream dilation measuring up to 4.1 cm. Scattered branching small volume portal venous gas throughout the liver (for example series 4, image 56). Additional portal venous gas and ve ssels about the greater and lesser curvatures of the stomach (for example series 2, image 63). No def inite pneumatosis. No definite free intraperitoneal air. Gallbladder distention. Calcified splenic granulomas. Bibasilar lung atelectasis/scarring. Calcifications in the right middle lobe could represent granulomas. Calcified mediastinal and right hilar lymph nodes. Mild degenerative changes of the spine. Procedure Note Otf Adler M.D. - 09/06/2021Format ting of this note might be different from the original. EXAM: INTERPRETATION OF OUTSIDE CT ABDOM EN AND OR PELVIS with IV contrast dated 09/06/2021. COMPARISON: CT abdomen and pelvis 2017. FINDINGS: Findings compatible with known Crohn's d isease including segmental wall thickening, narrowing, and hyperenhancement in the colon (for examp le series 2, image 82 on the left and image 68 on the right) and in the small bowel. Multiple short s egments of narrowing in the distal small bowel compatible with strictures. Associated gradual upst ream dilation measuring up to 4.1 cm. Scattered branching small volume portal venous gas throughout the liver (for example series 4, image 56). Additional portal venous gas and ve ssels about the greater and lesser curvatures of the stomach (for example series 2, image 63). No def inite pneumatosis. No definite free intraperitoneal air. Gallbladder distention. Calcified splenic granulomas. Bibasilar lung atelectasis/scarring. Calcifications in the right middle lobe could represent granulomas. Calcified mediastinal and right hilar lymph nodes. Mild degenerative changes of the spine. IMPRESSION: 1. Findings compatible with Crohn's dise ase. At least low-grade mechanical small bowel obstruction related to narrowed/strictured small bow el disease. 2. Portal venous gas in the liver withou t definite source although the stomach is suggested given additional gas present in portal vessels about the stomach. Raul MCGOVERN CT PROCEDURES documented in this encounter Visit Diagnoses Diagnosis Small Bowel Stricture Personal History - Primary documented in this encounter Admitting Diagnoses Diagnosis Small Bowel Stricture Personal History documented in this encounter Administered Medications Inactive Administered Medications - up to 3 most recent administrations Medication Order MAR Action Action Date Dose Rate Site aspirin chewable tablet 81 mg Given 09/08/2021 8:09 AM RN [employer] 81 mg 81 mg, oral, Daily, First dose (after last modification) on 09/07/21 at 1200 Given 09/07/2021 12:12 PM [facility] [employer] 81 mg atorvastatin tablet 20 mg (LIPITOR) Given 09/07/2021 8:50 PM [facility] [employer] 20 mg 20 mg, oral, Daily at bedtime, First dose on Mon09/06/21 at 2100 buPROPion tablet 100 mg (WELLBUTRIN) Given 09/08/2021 8:09 AM [facility] [employer] 100 mg 100 mg, oral, Daily, First dose (after last modification) on Mon09/07/21 at 1200 Given 09/07/2021 12:12 PM [employer] 100 mg enoxaparin injection 40 mg Given 09/06/2021 4:55 PM [facility] [employer] 40 mg Left Upper Arm (LOVENOX) (Back) 40 mg, subcutaneous, Every 24 hours scheduled, First dose on Mon09/06/21 at 1630 gemfibroziL tablet 600 mg (LOPID) Given 09/08/2021 5:57 AM [facility] [employer] 600 mg 600 mg, oral, 2 times daily before breakfast and dinner, First dose on Mon09/07/21 at 0700 Given 09/07/2021 3:56 PM [facility] [employer] 600 mg haloperidol lactate injection 2 mg Given 09/06/2021 8:41 PM [facility] [employer] 2 mg Left Deltoid (HALDOL) 2 mg, intramuscular, Every 8 hours PRN, agitation, Starting on Mon09/06/21 at 2019 HYDROmorphone (PF) injection 0.2 mg Given 09/08/2021 11:28 AM CS T 0.2 mg (DILAUDID) 0.2 mg, intravenous, Every 4 hours PRN, moderate pain or score 4-6 of 10, Starting on Mon09/06/21 at 1859 Given 09/08/2021 7:20 AM [facility] [employer] 0.2 mg Given 09/07/2021 11:23 PM [facility] [employer] 0.2 mg insulin aspart U-100 Given 09/08/2021 1:28 PM [facility] [employer] 2 Units Right Upper Arm injection 0-13 Units (Meredith k) (NovoLOG FlexPen) 0-13 Units, subcutaneous, 3 times daily, First dose on Mon09/06/21 at 1700, Insulin Scale: Moderate Correction Scale, 140 - 179: 2 units, 180 - 219: 4 units, 220 - 259: 6 units, 260 - 299: 8 units, 300 - 339: 10 units, 340 - 379: 12 units, 380 - 399: 13 units, Greater than 399: Call service writing Insulin orders Given 09/08/2021 7:26 AM RN [employer] 2 Units Right Lower Abdomen Given 09/07/2021 11:32 AM [facility] [employer] 2 Units Left Upper Arm (Back) lactated Ringer's bolus 500 mL New Bag 09/06/2021 4:53 PM [facility] [employer] 500 mL 500 mL/hr 500 mL, intravenous, at 500 mL/hr, Administer over 1 Hours, Once, On Mon09/06/21 at 1615, For 1 dose lactated Ringer's bolus 500 mL New Bag 09/06/2021 11:37 PM [facility] 500 mL 500 mL/hr 500 mL, intravenous, at 500 mL/hr, Administer over 1 Hours, Once, On Mon09/06/21 at 2330, For 1 dose LORazepam injection 1 mg (ATIVAN) Given 09/06/2021 4:52 PM [facility] 1 mg Right Deltoid 1 mg, intramuscular, Once as needed, for NG tube placement, Starting on Mon09/06/21 at 1619, For 1 dose, For intravenous use, dilute with equal volume of 0.9% NS LORazepam injection 1 mg (ATIVAN) Given 09/06/2021 8:34 PM [facility] [employer] 1 mg 1 mg, intravenous, Every 4 hours PRN, anxiety, Starting on Mon09/06/21 at 2019, For intravenous use, dilute with equal volume of 0.9% NS LORazepam tablet 0.5 mg (ATIVAN) Given 09/07/2021 8:53 PM [facility] 0.5 mg 0.5 mg, oral, Bedtime PRN, sleep, Starting on Mon09/06/21 at 1611 melatonin tablet 3 mg Given 09/07/2021 11:46 PM [facility] [employer] 3 mg 3 mg, oral, Bedtime PRN, sleep, Starting on Mon09/06/21 at 1615 metoprolol succinate 24 hr tablet 25 mg Given 09/08/2021 8:08 AM [facility] [employer] 25 mg (TOPROL-XL) 25 mg, oral, 2 times daily, First dose (after last modification) on Mon09/07/21 at 2100, Do NOT crush or chew. Tablet may be split on score if needed. Given 09/07/2021 8:50 PM [facility] 25 mg ondansetron (PF) injection 4 mg (ZOFRAN) 4 mg, intravenous, Every 6 hours PRN, na usea, vomiting, Starting on Mon09/07/21 at 1826 ondansetron ODT disintegrating tablet 4 mg Given 09/08/2021 11:3 5 AM [facility] 4 mg (ZOFRAN-ODT) 4 mg, oral, Every 6 hours PRN, nausea, vomiting, Starting on Mon09/07/21 at 1826, When splitting ODT at bedside, handle with gloves and a pill splitter to prevent moisture contact. Given 09/07/2021 6:32 PM [facility] [employer] [address] tablet 40 mg (PROTONIX) Given 09/08/2021 5:57 AM [facility] [employer] 40 mg 40 mg, oral, Daily before breakfast, First dose on Mon09/07/21 at 0700, pantoprazole 40 mg oral daily was interchanged for omeprazole 20 or 40 mg oral daily Swallow whole. Do NOT crush, chew, or split tablet. pregabalin capsule 100 mg (LYRICA) Given 09/08/2021 8:09 AM [facility] 100 mg 100 mg, oral, 2 times daily, First dose (after last modification) on Mon09/07/21 at 1200 Given 09/07/2021 8:50 PM [facility] [employer] 100 mg Given 09/07/2021 12:12 PM [facility] [employer] 100 mg documented in this encounter Active and Recently Administered Medications Times are shown in [facility] [employer]. Scheduled Medication Order 09/06/2021 09/07/2021 09/08/2021 aspirin chewable tablet 81 mg 1212 (Give n - Provider: Masha Ackerman RDerikNDerik) 0809 (Given - Provider: Ana Avila RDerikNDerik) 81 mg, oral, Daily, First dose (after last modificatio n) on Mon09/07/21 at 1200 atorvastatin tablet 20 mg (LIPITOR) 1902 (Held by [facility] ider - Provider: Raul Neil M.D. - Comment: obstructed)2100 (Not Given - Provider: Annie De La Paz RDerikNDerik - Reason: See Provider Order) 1231 (Unheld by provider - Provider: Stanislav Davison, B.Ch.)2049 (Given - Provider: Maria Teresa Bustos RDerikNDerik) 20 mg, oral, Daily at bedtime, First dose on Mon09/06/21 at 2100 buPROPion tablet 100 mg (WELLBUTRIN) 121 2 (Given - Provider: Masha Ackerman R.N.) 0809 (Given - Provider: Ana Avila R.N.) 100 mg, oral, Daily, First dose (after l ast modification) on Mon09/07/21 at 1200 enoxaparin injection 40 mg (LOVENOX) 1655 (Given - Provider: Maria Teresa Bustos R.N.) 0951 (Not Given - Provider: Masha Ackerman R.N. - Reason: Patient/family refused) 0807 (Not Given - Provider: Ana monterroso RDerikNDerik - Reason: Patient/family refused) 40 mg, subcutaneous, Every 24 hours sche duled, First dose on Mon09/06/21 at 1630 gemfibroziL tablet 600 mg (LOPID) 1902 (Held by provid er - Provider: Raul Neil M.D. - Comment: obstructed) 0700 (Not Given - Provider: Annie De La Paz R.N. - Reason: See Provider Order)1231 (Unheld by provider - Provider: Stanislav Abbasi, B.Ch.)1556 (Given - Provider: Maria Teresa Bustos R.N.) 0557 (Given - Provider: Annie De La Paz R.N. - Comment: per pt. requested) 600 mg, oral, 2 times daily before break fast and dinner, First dose on Mon09/07/21 at 0700 insulin aspart U-100 injection 0-13 Units (NovoLOG Fle xPen) 1745 (Given - Provider: Maria Teresa Bustos R.N. - Comment: BG 181) 0819 (Given - Provider: Masha Ackerman R.N. - Comment: bs 164)1132 (Given - Provider: Ravin Carr - Comment: BG 153)1610 (Not Given - Provider: Maria Teresa Bustos R.N. - Reason: Order parameters not met - Comment: BG 120) 0726 (Given - Provider: Ana Avila R.N. - Comment: [phone] (Given - Provider: Ana Avila R.N. - Comment: 146) 0-13 Units, subcutaneous, 3 times daily, First dose on Mon09/06/21 at 1700, Insulin Scale: Moderate Correction Scale, 140 - 179: 2 units, 180 - 219: 4 units, 220 - 259: 6 units, 260 - 299: 8 units, 300 - 339: 10 units, 340 - 379: 12 units, 38 0 - 399: 13 units, Greater than 399: Call service writing Insulin orders lactated Ringer's bolus 500 mL (COMPLETED) 165 ([facility] ag - Provider: Maria Teresa Bustos R.N.) 500 mL, intravenous, at 500 mL/hr, Admin ister over 1 Hours, Once, On Mon09/06/21 at 1615, For 1 dose lactated Ringer's bolus 500 mL (COMPLETED) 233 ([facility] - Provider: Annie De La Paz R.N.) 500 mL, intravenous, at 500 mL/hr, Admin ister over 1 Hours, Once, On Mon09/06/21 at 2330, For 1 dose metoprolol succinate 24 hr tablet 25 mg (TOPROL-XL) 2049 (Given - Provider: Maria Teresa Bustos R.N.) 0808 (Given - Provider: Ana Avila R.N.) 25 mg, oral, 2 times daily, First dose ( after last modification) on Mon09/07/21 at 2100, Do NOT crush or chew. Tablet may be split on score if needed. pantoprazole DR tablet 40 mg (PROTONIX) 190 (Held by provider - Provider: Raul Neil M.D. - Comment: obstructed) 0700 (Not Given - Provider: Annie De La Paz RLouise - Reason: See Provider Order)1231 (Unheld by provider - Provider: Stanislav Abbasi, B.Ch.) 0557 (Given - Provider: Annie De La Paz R.N. - Comment: per pt. requested) 40 mg, oral, Daily before breakfast, Fir st dose on Mon09/07/21 at 0700, pantoprazole 40 mg oral daily was interchanged for omeprazole 20 or 40 mg oral daily Swallow whole. Do NOT crush, chew, or split tablet. pregabalin capsule 100 mg (LYRICA) 1212 (Given - Provider: Masha Ackerman RDerikNDerik)2050 (Given - Provider: Maria Teresa Bustos R.N.) 0809 (Given - Provider: Ana Avila R.N.) 100 mg, oral, 2 times daily, First dose (after last modification) on Mon09/07/21 at 1200 PRN Medication Order 09/06/2021 09/07/2021 09/08/2021 acetaminophen tablet 650 mg (TYLENOL) 1941 (Not Given - Provider: Maria Teresa Bustos R.N. - Reason: See Provider Order) 650 mg, oral, Every 4 hours PRN, moderat e pain or score 4-6 of 10, Starting on Mon09/06/21 at 1613 haloperidol lactate injection 2 mg (HALDOL) (CANCELED) 2040 (Given - Provider: Maria Teresa Bustos R.N.) 2 mg, intramuscular, Every 8 hours PRN, agitation, Starting on Mon09/06/21 at 2019 HYDROmorphone (PF) injection 0.2 mg (DILAUDID) 1939 (G iven - Provider: Maria Teresa Bustos R.N.) 0820 (Given - Provider: Masha salinas RDerikNDerik)1356 (Given - Provider: Masha Ackerman R.N.)1816 (Given - Provider: Maria Teresa Bustos R.N.)2323 (Given - Provider: Annie De La Paz RDerikNDerik) 0720 (Given - Provider: Ana Avila RDerikN.)1128 (Given - Provider: Ana Avila RDerikNDerik) 0.2 mg, intravenous, Every 4 hours PRN, moderate pain or score 4-6 of 10, Starting on Mon09/06/21 at 1859 LORazepam injection 1 mg (ATIVAN) (COMPLETED) 1652 (Gi brandi - Provider: Maria Teresa Bustos R.N.) 1 mg, intramuscular, Once as needed, for NG tube placement, Starting on Mon09/06/21 at 1619, For 1 dose, For intravenous use, dilute with equal volume of 0.9% NS LORazepam injection 1 mg (ATIVAN) 2033 (Given - Provider: Maria Teresa Bustos R.N.) 1 mg, intravenous, Every 4 hours PRN, an xiety, Starting on Mon09/06/21 at 2019, For intravenous use, dilute with equal volume of 0.9% NS LORazepam tablet 0.5 mg (ATIVAN) 1941 (Not Given - Pro vider: Maria Teresa Bustos R.N. - Reason: See Provider Order) 0006 (Held by provider - Provider: Declan Neil M.D. - Comment: In setting of higher dose prn)1231 (Unheld by provider - Provider: Stanislav Abbasi, B.Ch.)2052 (Given - Provider: Maria Teresa Bustos R.N.) 0.5 mg, oral, Bedtime PRN, sleep, Starting on Mon09/06/21 at 161 1 melatonin tablet 3 mg 1941 (Not Given - Provider: Maria Teresa uBstos R.N. - Reason: See Provider Order) 2346 (Given - Provider: Annie De La Paz R.N.) 3 mg, oral, Bedtime PRN, sleep, Starting on Mon09/06/21 at 1615 ondansetron (PF) injection 4 mg (ZOFRAN)(Linked Group 1) 1831 (See Alternative - Provider: Masha Ackerman R.N.) 1135 (See Alternative - Provider: Bettye Avila R.N.) 4 mg, intravenous, Every 6 hours PRN, na usea, vomiting, Starting on Mon09/07/21 at 1826 ondansetron ODT disintegrating tablet 4 mg (ZOFRAN-ODT)(Link ed Group 1) 1831 (Given - Provider: Masha Ackerman R.N.) 1135 (Given - Provider: Ana Avila R.N.) 4 mg, oral, Every 6 hours PRN, nausea, v omiting, Starting on Mon09/07/21 at 1826, When splitting ODT at bedside, handle with gloves and a pill splitter to prevent moisture contact. Linked Groups Order Group 1: ondansetron (PF) injection 4 mg (ZOFRAN)Jump to med 4 mg, intravenous, Every 6 hours PRN, na usea, vomiting, Starting on Mon09/07/21 at 1826 Or ondansetron ODT disintegrating tablet 4 mg (ZOFRAN-ODT)Jump to med 4 mg, oral, Every 6 hours PRN, nausea, v omiting, Starting on Mon09/07/21 at 1826
When splitting ODT at bedside, handle with gloves and a pill splitter to prevent moisture contact.
documented in this encounter
--- OUTSIDE RECORDS SUMMARY | 2022-04-25 11:10 | XMS_ITS | Encounter Summary ---
:1975 Author Organization [facility] Address [address] [place] [address] Care Team Providers Name Role Phone Unavailable Primary Care Provider Unavailable Reason for Referral MRI/CAT/PET Scan (Routine) - Closed Specialty Diagnoses / Procedures Referred By Contact Refer red To Contact Radiology Diagnoses Obstruction Intestinal (HCC) Ynes Nguyen M.D. [place] [facility] Procedures CT Abdomen Pelvis Enterography with IV Contrast [address] [place] [phone] Referral ID Status Reason Start Date Expiration Date Visits Requ ested Visits Authorized [id number] Closed 09/07/2021 09/07/2022 1 1 PTION AGENT Reason for Visit MRI/CAT/PET Scan (Routine) - Closed Specialty Diagnoses / Procedures Referred By Contact Refer red To Contact Radiology Diagnoses Obstruction Intestinal (HCC) Ynes Nguyen M.D. [facility] Procedures CT Abdomen Pelvis Enterography with IV Contrast [address] [place] [phone] Referral ID Status Reason Start Date Expiration Date Visits Requ ested Visits Authorized [id number] Closed 09/07/2021 09/07/2022 1 1 Encounter Details Date Type Department Care Team Description 09/10/2021 Hospital Encounter Department of [facility], [place] Tejeda M.D. Intestinal (HCC) Building, in [address] [place] [address] [place] [phone] [place], [place] [phone] (Work) [phone] Social History Tobacco Use Types Packs/Day Years [...] or relatives? How often do you attend judaism or More than 4 times per year 09/15/2021 restorationism services? Do you belong to any clubs or Yes 09/15/2021 organizations such as judaism groups, unions, fraternal or athletic groups, or [...] place to sleep or slept in a senior living (including now)? Sex Assigned at Date Recorded Male 09/15/2021 9:14 AM RECEPTION AGENT documented as of this encounter Last Filed Vital Signs Vital Sign Reading Time Taken Comments Blood Pressure - - Pulse - - Temperature - - Respiratory Rate - - Oxygen Saturation - - Inhaled Oxygen Concentration - - Weight - - Height 185.4 cm (6' 1) 09/10/2021 11:24 AM RECEPTION AGENT Body Mass Index - - documented in [...] by mouth 0 100 mg tablet daily. [id number] Drink 1st portion of 1 kit 0 09/09/2021 [id number] prep at 6 PM the (MOVIPREP) 100-7.5-2.691 evening before. 2nd gram per packet portion must be started 3 hours before and finished 2 hours prior to report time documented as of this encounter Nursing Notes Xena Thomson R.N. - 09/10/2021 12:45 PM CST Enterography Screening Does patient have a confirmed or suspected gastrointestinal perforation or peritonitis? NO If no???continue Does patient have an allergy to citrus fruit? NO If no???continue Does patient have an allergy to any of the ingredients in Breeza: Filtered water, Sorbitol, Mannitol, Citric Acid, Sodium Hexametaphosphate (preservative), Xanthan Gum, Sodium Citrate, Sodium Benzoate, Potassium Sorbate (preservative), Sucralose, Malic Acid, Acesulfame Potassium, or Calcium Disodium EDTA? NO If no???continue Does patient have an allergy to Benzocaine if patient requires a nasogastric tube inserted? NO If no???continue Does patient have current issues with aspiration? NO If no???continue For CT: Has patient had barium in last 72 hours? NO If no???continue Does patient have an ileostomy or total colectomy? NO If yes...use appropriate section of medicationreference document. NOTE: Notify technologist as scan timing may need to be altered. Ask patient to notify nursing when oral contrast starts coming through the ostomy as scan timing may need to be altered. Is patient scheduled for a MREN/perianal fistula study? NO if yes...use appropriate section of medication reference document. NOTE: Notify technologist as scan timing may need to be altered. Ask patient to notify nursing when oral contrast starts coming through the ostomy as scan timing may need to be altered. Does patient currently have an NG tube or requests one to be inserted for contrast administration? NO If yes...use appropriate section of medication reference document. If yes??? If one needs to be placed, submit an order for the NG tube (per protocol) and insert. For CT: Is the patient scheduled for a Puetz-Jeghers Enterography? NO If yes... continue Does patient have an allergy to Barium sulfate? NO If yes, notify Radiologist. For MR: Initiate Glucagon screening as well. *Administer medications as ordered and as specified in medication reference document. PTION AGENT documented in this encounter Plan of Treatment Not on filedocumented as of this encounter Procedures Procedure Name Priority Date/Time Associated Comments Diagnosis CT ABDOMEN PELVIS RAD - Routine 09/10/2021 12:36 Obstruction Resul ts for ENTEROGRAPHY WITH (most inpatients PM RECEPTION AGENT Intestinal (HCC) th is procedure IV CONTRAST and all are in the outpatients) results section. documented in this encounter Results CT Abdomen Pelvis Enterography with IV Contrast (09/10/2021 12:36 PM RECEPTION AGENT) Anatomical Region Laterality Modality Abdomen, Pelvis, Abdominal RST LOS, N/A Comp uted Tomography, Computed Abdominal ARZ LOS, Abdominal FLA LOS Lakhwinder ography Specimen (Source) Anatomical Collection Method Collection Time Re ceived Time Location / / Volume Laterality 09/10/2021 12:35 PM RECEPTION AGENT Impressions 09/10/2021 1:22 PM RECEPTION AGENT 1. Interval resolution of small bowel obstruction. 2. No convincing evidence of Crohn's dis ease involving the small bowel. 3. Given the history of NSAID use and fi ndings on the comparison study suggesting the possibility of obstructing diaphragms, small bowel seri es could be performed for further evaluation. Narrative 09/10/2021 1:22 PM RECEPTION AGENT EXAM: ??CT ABDOMEN PELVIS ENTEROGRAPHY WITH IV CONTRAST COMPARISON: ??Recent outside CT dated FINDINGS: ?? The small bowel obstruction has resolved in the interim. On the comparison study the bowel is bet ter distended given the associated small bowel obstruction. There are a couple of areas which could represent diaphragms given the history of nonsteroidal use. No superimposed inflammation. It is diff icult to identify a discrete transition point associated with one of these potential diaphragms o n the prior study however. These areas are not as well seen on today's study secondary to the degree of distention. On the outside study there is a tapered small bowel loop in the right abdomen. T here is no history of surgery to suggest an adhesion and therefore this may just represent a poor ly distended small bowel loop. On today's study there is no convincing evidence of Crohn's disease involving the small bowel. There are a few prominent right lower quadrant ileocolic lymph nodes. No colonic inflammation. If indicated small bowel series could be performed for further evaluation. Hepatic steatosis. Nodular area of fatty sparing in the medial segment of the left lobe. MR could be performed to exclude an underlying lesio n. Small hiatal hernia. Mild splenomegaly. Tiny nonobstructing right kidney stone. Multiple calcified granuloma in the righ t lung base. Procedure Note Shahid Quezada M.D. - 09/10/2021Formatt ing of this note might be different from the original. EXAM: CT ABDOMEN PELVIS ENTEROGRAPHY WIT H IV CONTRAST COMPARISON: Recent outside CT dated 08/24 FINDINGS: The small bowel obstruction has resolved in the interim. On the comparison study the bowel is bet ter distended given the associated small bowel obstruction. There are a couple of areas which could represent diaphragms given the history of nonsteroidal use. No superimposed inflammation. It is diff icult to identify a discrete transition point associated with one of these potential diaphragms o n the prior study however. These areas are not as well seen on today's study secondary to the degree of distention. On the outside study there is a tapered small bowel loop in the right abdomen. T here is no history of surgery to suggest an adhesion and therefore this may just represent a poor ly distended small bowel loop. On today's study there is no convincing evidence of Crohn's disease involving the small bowel. There are a few prominent right lower quadrant ileocolic lymph nodes. No colonic inflammation. If indicated small bowel series could be performed for further evaluation. Hepatic steatosis. Nodular area of fatty sparing in the medial segment of the left lobe. MR could be performed to exclude an underlying lesio n. Small hiatal hernia. Mild splenomegaly. Tiny nonobstructing right kidney stone. Multiple calcified granuloma in the righ t lung base. IMPRESSION: 1. Interval resolution of small bowel ob struction. 2. No convincing evidence of Crohn's dis ease involving the small bowel. 3. Given the history of NSAID use and fi ndings on the comparison study suggesting the possibility of obstructing diaphragms, small bowel seri es could be performed for further evaluation. Ynes MCGOVERN CT PROCEDURES documented in this encounter Visit Diagnoses Diagnosis Obstruction Intestinal (HCC) documented in this encounter Administered Medications Inactive Administered Medications - up to 3 most recent administrations Medication Order MAR Action Action Date Dose Rate Site iohexoL 300 mg iodine/mL solution Given 09/10/2021 12:25 PM RECEPTION AGENT 200 mL 1-200 mL (OMNIPAQUE) 1-200 mL, intravenous, Once in imaging, contrast, Starting on Mon09/10/21 at 1124, For 1 dose, Imaging Protocol Orders, Dose per Radiant Medication Guidelines sodium chloride (PF) 0.9 % injection 1-1 00 mL Given 09/10/2021 12:25 PM RECEPTION AGENT 50 mL 1-100 mL, intravenous, Once, On Mon09/10/21 at 1130, For 1 dose, Imaging Protocol Orders documented in this encounter Additional Health Concerns Infection Onset Date Last Indicated Resolved Time COVID19 Pending 09/10/2021 09/10/2021 09/10/2021 4:32 PM RECEPTION AGENT documented as of this encounter
--- OUTSIDE RECORDS SUMMARY | 2022-04-25 11:10 | XMS_ITS | Encounter Summary ---
:1975 Author Organization [facility] Address [address] [place] [address] Care Team Providers Name Role Phone Unavailable Primary Care Provider Unavailable Encounter Details Date Type Department Care Team Description 09/07/2021 Clinical Communication Division of [facility] in Ynes Tejeda M.D. [place], [place] [address] [facility] [address] [place] [phone] Social History Tobacco Use Types Packs/Day Years [...] or relatives? How often do you attend pentecostal or More than 4 times per year 09/15/2021 temple services? Do you belong to any clubs or Yes 09/15/2021 organizations such as pentecostal groups, unions, fraternal or athletic groups, or [...] or slept in a snf (including now)? Sex Assigned at Date Recorded Male 09/15/2021 9:14 AM ASSISTANT DIRECTOR OF ADMISSIONS documented as of this encounter Plan of Treatment Not on filedocumented as of this encounter Results SARS CoV-2 RNA, PCR, Varies Asymptomatic (09/10/2021 12:49 PM ASSISTANT DIRECTOR OF ADMISSIONS) [facility] Method Time Signature SARS CoV-2 Swab, 09/10/2021 DTL RNA, PCR, Nasopharynx 4:31 PM ASSISTANT DIRECTOR OF ADMISSIONS Source SARS CoV-2 Undetected Undetected 09/10/2021 DTL RNA, PCR 4:31 PM ASSISTANT DIRECTOR OF ADMISSIONS Comment: SARS-CoV-2 RNA absent. This result does not rule out COVID-19 in the patient, as the sensitivity of the test depends o n the timing of the specimen collection and quality of the specimen. Result should be correlated with patient's history and clinical presentat ion. ----ADDITIONAL INFORMATION---- This RT-PCR test has received Emergency Use Authorization (EUA) by the U.S. Food and Drug Administration an d is used per management trainer's instructions. Performance characteristics were verified by [facility] in a manner consistent with CLIA requirements. Visit the CDC website: https://www.cdc.g ov/coronavirus/ for the most recent guidelines on Coron avirus testing. Fact Sheet for Healthcare Providers: https://www.fda.gov/media/295863/downloa d Fact Sheet for Patients: https://www.fda.gov/media/136460/downloa d Specimen Anatomical Collection Method Collection Time Receive d Time (Source) Location / / Volume Laterality Varies 09/10/2021 12:49 09/10/2021 1:24 (Nasopharynx) PM ASSISTANT DIRECTOR OF ADMISSIONS PM ASSISTANT DIRECTOR OF ADMISSIONS Ynes Nguyen M.D. LAB MICROBIOLOGY - GENERAL O RDERABLES Performing Organization Address City/State/ZIP Code Phon e Number [facility] - [address] [place], [place] [address] [facility] [place] [address] [facility] [address] documented in this encounter Visit Diagnoses Diagnosis Preprocedural Lab Exam - Primary documented in this encounter
--- OUTSIDE RECORDS SUMMARY | 2022-04-25 11:10 | XMS_ITS | Encounter Summary ---
:1975 Author Organization [facility] Address [address] [place] [address] Care Team Providers Name Role Phone Unavailable Primary Care Provider Unavailable Encounter Details Date Type Department Care Team Description 09/16/2021 Clinical Communication Division of [facility] in Ynes Tejeda M.D. [place], [place] [address] [facility] [address] [place] [phone] Social History Tobacco Use Types Packs/Day Years [...] or relatives? How often do you attend nondenominational or More than 4 times per year 09/15/2021 buddhist services? Do you belong to any clubs or Yes 09/15/2021 organizations such as nondenominational groups, unions, fraternal or athletic groups, or [...] place to sleep or slept in a nursing home (including now)? Education Answer Date Recorded What is the highest level of school Associate degree: rishabhshine espinoza, 09/15/2021 you have completed or the highest technical, or vocational p nickram degree you have received? 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 - 09/16/2021 1:42 PM CST This is a note to document all correspondence between myself, Ynes Nguyen M.D. and Mr. Bledsoetonya Whitley. After communicating with Dr. Duarte, it is unclear from CT enterography how many diaphragms there areand location. We discussed proceeding with small bowel series to gain a better understanding of the number, severity, and location of the diaphragms to determine if dilation would be beneficial (for example 1 or 2 in the proximal jejunum for which double balloon enteroscopy would be helpful, but if multiple throughout the small bowel then dilating some and not all would be unhelpful unless there is one with a transition point). I communicated this to Mr. Whitley over the phone today and he was in agreement to proceed. We will schedule a small bowel series at his earliest convenience and once theseresults are available I will discuss further with Drs. Bates, Bayron, and Gerald regarding next steps. Mr. Whitley was in agreement with and expressed understanding of the above plan. All of his questions were answered to the best of my ability. Ynes Nguyen M.D. Gastroenterology Fellow 09/16/2021 CALLER documented in this encounter Plan of Treatment Not on filedocumented as of this encounter Visit Diagnoses Diagnosis Obstruction Intestinal (HCC) - Primary documented in this encounter
--- OUTSIDE RECORDS SUMMARY | 2022-04-25 11:10 | XMS_ITS | Encounter Summary ---
:1975 Author Organization [facility] Address [address] [place] [address] Care Team Providers Name Role Phone Unavailable Primary Care Provider Unavailable Encounter Details Date Type Department Care Team Description 09/15/2021 Virtual Visit Division of [facility] clement Tejeda M.D. Intestinal ([facility]) [place], [place] [address] [facility] (Primary Dx) [address] [place] [phone] Social History Tobacco Use Types Packs/Day Years [...] or relatives? How often do you attend pentecostalism or More than 4 times per year 09/15/2021 uatsdin services? Do you belong to any clubs or Yes 09/15/2021 organizations such as pentecostalism groups, unions, fraternal or athletic groups, or [...] place to sleep or slept in a jail (including now)? Education Answer Date Recorded What is the highest level of school Associate degree: [employer] espinoza, 09/15/2021 you have completed or the highest technical, or vocational p nickram degree you have received? 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 - 09/15/2021 4:20 PM CST Gastroenterology and Hepatology Virtual Visit (ID) SUBJECTIVE DATE OF VISIT: 09/15/2021 This patient was virtually interviewed via real time audio in the patient's home by Ynes Nguyen M.D. at [facility]. The history and findings below are based on review of available medical records and a virtual conversation with the patient. This Virtual Visit was performed during the pandemic. REASON FOR VISIT Post-hospital follow-up for bowel obstruction, review results. HISTORY OF PRESENT ILLNESS Mr. Lawson Whitley is a 46-year-old gentleman with medical comorbidities including type 2 diabetes mellitus, fibromyalgia, and a 10-year history of gastrointestinal symptoms including episodic abdominalpain with prodromal watery diarrhea and obstructive symptoms who presents today via virtual phone visit for post-hospital follow-up and to review results. Mr. Whitley has a 10-year history of gastrointestinal symptoms associated with episodic abdominal pain associated with prodromal, watery diarrhea and obstructive symptoms. He has been hospitalized 6 times over this time period, most recently one week ago (last hospitalization prior to this was in July 2021). He has not had diarrhea without obstructive symptoms with each time resulting in hospitalization for about one week. Each of these prior episodes have been treated with a prednisone taper with improvement of symptoms. He has had three colonoscopies in the past, two of which suggested the possibility of mild ileal inflammation including one exam that showed aphthous ulcers. Biopsies showed nonspecific focal ileitis. He was seen at [facility] in GI previously in 2017 and at that time therewas not concern for inflammatory bowel disease (CT enterography was normal). Colonoscopy at that time was normal. He has undergone upper endoscopy once in the past in 2013 which was normal (no duodenalbiopsies performed). He has also undergone pill enteroscopy at [facility] which was unrevealing (unclear date). In early July 2021, he developed gradual onset abdominal pain in the right upper quadrant, reminiscent of prior episodes. He then developed nausea with decreased oral intake and was admitted to an outside hospital. He was treated with prednisone for 7 days, placed on a taper and subsequently discharged. He continued to have significant pain and diarrhea, although improved from initial onset of symptoms, but this progressively worsened resulting in his recent admission to [facility] from 09/07-09/08/21 (last prednisone dose was 08/24/21) CT imaging demonstrated segmental wall thickening, narrowing, and hyperenhancement in the colon and in the small bowel. Multiple short segments of narrowing were seen in the distal small bowel compatible with strictures with associated upstream dilation measuring up to 4.1 cm. Laboratory investigations including CBC, BMP, ESR, and CRP were unremarkable. His symptoms gradually improved without any specific interventions (NGT was placed with < 100 cc suctioned within first two hours, not subsequently tolerated). Since hospital dismissal, Mr. Whitley continues to feel improved day by day. He has very mild generalized abdominal discomfort which he believes is in the setting of his recent colonoscopy, but no specific bloating. His bowel habits have returned to baseline. He had a very small episode of hematochezia later in the day following his colonoscopy, but has not had recurrence since. No nausea, vomiting,fever, or chills. His oral intake has been appropriate and he has been consuming soft, low-fiber foods. He notes it has been several years since he last use NSAIDs. REVIEW OF SYSTEMS All other systems reviewed and negative unless mentioned in the history of present illness, patient provided information or problem list. HISTORY REVIEW: The following portions of the patient's history were reviewed and updated as appropriate: allergies,current medications, family history, medical history, social history, surgical history and problem list. OBJECTIVE VITAL SIGNS Not performed. PHYSICAL EXAMINATION Not performed. ASSESSMENT / PLAN # Intermittent small bowel obstruction, query related to obstructing diaphragms # Aphthous ulcerations in the terminal ileum with normal-appearing mucosal biopsies # Obstructing diaphragms involving the small bowel # Hepatic steatosis # History of NSAID use Mr. Whitley is a 46-year-old gentleman with medical comorbidities including type 2 diabetes mellitus, fibromyalgia, and a 10-year history of gastrointestinal symptoms including episodic abdominal painwith prodromal watery diarrhea and obstructive symptoms who presents today via virtual phone visit for post-hospital follow-up and to review results. Mr. Whitley has a 10-year history of gastrointestinal symptoms associated with episodic abdominal pain preceded by prodromal, watery diarrhea and obstructive symptoms. He has been hospitalized on several occasions over this time period for concern of terminal ileitis, Crohn's disease, and resultant small bowel obstruction. Each of these prior episodes have been treated with a prednisone taper with improvement of symptoms. Prior to his most recent colonoscopy, he had 3 colonoscopies previously, 2 ofwhich suggested the possibility of mild ileal inflammation including one exam that showed aphthous ulcers. Biopsies previously have shown nonspecific focal ileitis. He was last seen here at [facility] in 2017 and at that time CT enterography and colonoscopy were normal. He has undergone upper endoscopy once in the past in 2013 which was normal, although no duodenal biopsies were performed. He has also undergone pill enteroscopy at [facility] which was unrevealing (unclear date). Other than prednisone, he has not received any specific directed therapies for his symptoms. He notes it has been several years since he last used NSAIDs. Following his most recent hospitalization for obstructive symptoms, we proceeded with CT enterography and colonoscopy to further evaluate for the presence of underlying inflammatory bowel disease. CT enterography showed interval resolution of the previously visualized small-bowel obstruction, but no co nvincing evidence of Crohn's disease involving the small bowel. Possible diaphragms were noted particularly in the lower portion of the small bowel given his history of NSAID use. Colonoscopy showed multiple scattered nonbleeding aphthae involving the terminal ileum without stigmata of recent bleedingand an endoscopically normal appearing colon. A hemostatic clip was placed in the transverse colon to prevent bleeding after biopsy. Biopsies from the terminal ileum and throughout the colon were normal. I reviewed these results with Mr. Whitley over the phone today and that based on the investigationsperformed, he does not have evidence of Crohn's disease or inflammatory bowel disease. Most likely, the diaphragms noted in the lower portion of the small bowel may be the underlying etiology for his intermittent bowel obstructions over the past several years. Again, he has not used NSAIDs for the past several years but given the absence chronic inflammation on biopsies from the terminal ileum or colon coupled with his CT enterography findings, this does not likely represent Crohn's disease. We discussed that diaphragms in the small bowel will not resolve independently, but given the several obstructive episodes he has had over the years resulting in hospitalization we discussed the possibility ofproceeding with a balloon study for diagnostic and therapeutic purposes. I have sent a communicationto Dr. Duarte to obtain her opinion on his current CT enterography and whether or not he would be a candidate for balloon study. Once I receive additional information, I will reach out to Mr. Whitley regarding next steps. From a therpeutic perspective in the interim, we would not recommend any additional use of corticosteroids. I encouraged him to adhere to a soft, low- fiber diet to prevent further worsening of symptomsin the meantime. RECOMMENDATIONS: - Will discuss his case further with Dr. Duarte to see if he is a candidate for a balloon study for diagnostic and therapeutic purposes as it relates to the presence of small bowel diaphragms. - Given absence of convincing features for Crohn's disease, we would not recommend any additional use of corticosteroids or IBD-specific therapy at this time. - Discussed continued avoidance of NSAIDs (Mr. Whitley notes he has avoided use for the past several years). He is on low-dose aspirin 81 mg daily. - Discussed continued implementation of a soft, low-fiber diet pending recommendations for further intervention as outlined above. Advised patient to look at the documentation on the patient portal. BILLIN minutes spent in a combination of the following activities: visit with the patient; reviewing records; interpreting test results; discussing plans with the patient and/or family; discussingand coordinating care with other team members and communicating / reviewing care plan with local provider(s). Ynes Nguyen M.D. 09/15/2021 This patient will be reviewed and discussed with Drs. Bates and Bayron. SMAN documented in this encounter Plan of Treatment Not on filedocumented as of this encounter Visit Diagnoses Diagnosis Obstruction Intestinal (HCC) - Primary documented in this encounter
--- OUTSIDE RECORDS SUMMARY | 2022-04-25 11:10 | XMS_ITS | Encounter Summary ---
:1975 Author Organization [facility] Address [address] [place] [address] Care Team Providers Name Role Phone Unavailable Primary Care Provider Unavailable Encounter Details Date Type Department Care Team Description 09/06/2021 Ancillary Procedure Department of Radiology John Neil, in [facility] tsering [place] [address] [facility] [address] [place] [phone] (Wo rk) Social History Tobacco Use Types Packs/Day Years [...] or relatives? How often do you attend anabaptist or More than 4 times per year 09/15/2021 jainism services? Do you belong to any clubs or Yes 09/15/2021 organizations such as anabaptist groups, unions, fraternal or athletic groups, or [...] or slept in a jail (including now)? 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 documented in this encounter Results Interpretation of Outside CT Abdomen and or Pelvis (09/06/2021 4:23 PM DIRECTOR PRODUCT MANAGEMENT) Anatomical Region Laterality Modality Abdomen, Pelvis, Abdominal RST LOS, Abdominal ARZ LOS, N/A Computed Tomography Abdominal FLA LOS, Other Specimen (Source) Anatomical Collection Method Collection Time Re ceived Time Location / / Volume Laterality 09/06/2021 6:03 PM DIRECTOR PRODUCT MANAGEMENT Impressions 09/06/2021 6:39 PM DIRECTOR PRODUCT MANAGEMENT 1. Findings compatible with Crohn's disease. At least low-grade mechanical small bowel obstruction related to narrowed/strictured small bow el disease. 2. Portal venous gas in the liver withou t definite source although the stomach is suggested given additional gas present in portal vessels about the stomach. Narrative 09/06/2021 6:39 PM DIRECTOR PRODUCT MANAGEMENT EXAM: ??INTERPRETATION OF OUTSIDE CT ABDOMEN AND [...] of Outside CT Chest (09/06/2021 4:23 PM DIRECTOR PRODUCT MANAGEMENT) Anatomical Region Laterality Modality Chest, Thoracic RST LOS, Thoracic ARZ LOS, Thoracic N/A Computed Tomography FLA LOS, Other, Body Specimen (Source) Anatomical Collection Method Collection Time Re ceived Time Location / / Volume Laterality 09/06/2021 6:03 PM DIRECTOR PRODUCT MANAGEMENT Impressions 09/06/2021 6:39 PM DIRECTOR PRODUCT MANAGEMENT 1. Findings compatible with Crohn's disease. At least low-grade mechanical small bowel obstruction related to narrowed/strictured small bow el disease. 2. Portal venous gas in the liver withou t definite source although the stomach is suggested given additional gas present in portal vessels about the stomach. Narrative 09/06/2021 6:39 PM DIRECTOR PRODUCT MANAGEMENT EXAM: ??INTERPRETATION OF OUTSIDE CT ABDOMEN AND [...] PROCEDURES documented in this encounter Visit Diagnoses Not on filedocumented in this encounter
--- OUTSIDE RECORDS SUMMARY | 2022-04-25 11:10 | XMS_ITS | Encounter Summary ---
:1975 Author Organization [facility] Address [address] [place] [address] Care Team Providers Name Role Phone Unavailable Primary Care Provider Unavailable Encounter Details Date Type Department Care Team Description 09/09/2021 Clinical Communication Division of [facility] in Ynes Tejeda M.D. [place], [place] [address] [facility] [address] [place] [phone] Social History Tobacco Use Types Packs/Day Years [...] or relatives? How often do you attend oriental orthodox or More than 4 times per year 09/15/2021 protestant services? Do you belong to any clubs or Yes 09/15/2021 organizations such as oriental orthodox groups, unions, fraternal or athletic groups, or [...] place to sleep or slept in a long-term (including now)? 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
--- OUTSIDE RECORDS SUMMARY | 2022-04-25 11:10 | XMS_ITS | Encounter Summary ---
:1975 Author Organization [facility] Address [address] [place] [id number] Care Team Providers Name Role Phone Elsewhere, Pcp Primary Care Provider Unavailable Reason for Visit Auth/Cert Specialty Diagnoses / Procedures Referred By Contact Refer red To Contact Diagnoses Small Bowel Stricture Personal History abdominal pain, concern for bowel obstruction Procedures Z87.19 (ICD-10-CM) - Small Bowel Stricture Personal History Referral ID Status Reason Start Date Expiration Date Visits Requ ested Visits Authorized [id number] 1 1 Encounter Details Date Type Department Care Team Description 09/18/2021 - Hospital Encounter [facility] El Andrew [facility], [address] [place] [address] History ([place], [place] Dx) Sixth Floor [phone] [place] [address] [place], [place] (Work) [phone] Social History Tobacco Use [...] or relatives? How often do you attend roman catholic or More than 4 times per year 09/15/2021 [employer] services? Do you belong to any clubs or Yes 09/15/2021 organizations such as roman catholic groups, unions, fraternal or athletic groups, or [...] place to sleep or slept in a alf (including now)? Education Answer Date Recorded What is the highest level of school Associate degree: [employer], 09/15/2021 you have completed or the highest technical, or vocational p [employer] degree you have received? 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68 09/18/2021 4:03 PM BILLPOSTING SUPERVISOR documented in this encounter Discharge Summaries Silvino Belle M.D. - 09/21/2021 2:28 PM CST DISCHARGE SUMMARY BRIEF OVERVIEW Hospital: [facility] Discharge Provider: El Andrew M.D. Primary Team: T Gastroenterology A Primary Care Providers: Elsewhere, Pcp (General) No address on file Primary Care Provider Phone Number: None Primary Care Provider Fax Number: None Admission Date: 09/18/2021 Discharge Date:09/21/2021 PRINCIPAL DIAGNOSIS Small Bowel Stricture Personal History SECONDARY DIAGNOSES Principal Problem: Small Bowel Stricture Personal History partial small-bowel obstruction history NSAID use ongoing outpatient workup with concern for obstructing diaphragms involving small bowel DISCHARGE DISPOSITION Home or Self Care [1] ACTIVE ISSUES REQUIRING FOLLOW UP ?? We will call you with the appointment for balloon endoscopy or surgery for focal stricture in theileum. ?? Please continue to avoid all NSAIDs including ibuprofen and Aleve. ?? Please follow-up with your PCP within 1 week to discuss recent hospitalization. OUTPATIENT FOLLOW UP For appointment details refer to your Patient Appointment Guide. TEST RESULTS PENDING AT DISCHARGE Pending Labs None DETAILS OF HOSPITAL STAY REASON FOR ADMISSION Small Bowel Stricture Personal History HOSPITAL COURSE Mr. Whitley is a 41-year-old man who has had a ten year GI syndrome defined by episodes of abdominal pain and intermittent obstruction. This is associated with the prodrome of watery diarrhea, worsening abdominal pain, decreased p.o. intake, nausea, and frequent episodes of nonbloody nonbilious emesis. He has been hospitalized 7 times over this period of time, most recently in July and then againFebruary . BACKGROUND Presumptive diagnosis in the past was Crohn's. Diagnostic workup was notable for the following: -He has had three colonoscopies, two of which suggested the possibility of mild ileal inflammation including one exam that showed localized aphthous ulcers. The biopsies only showed nonspecific focal ileitis. -[facility] saw him here in 2016, said no dx of IBD, seems steroid responsive but not appropriate forlong-term immunosuppression w/o dx criteria and proposed colonoscopy and CT enterography here. He did the colonoscopy only, which was totally normal. -He has had one upper endoscopy around 2013 that was essentially normal. No duodenal biopsies were done. -He did undergo pill enteroscopy at [facility] which was unrevealing, date unclear. In all prior hospitalizations, aside from most recent visit here at [place], he has received a course of steroids (5-7 days) followed by taper. The majority of these hospitalizations were at [facility]. He did complete a taper on 08/24/2021 in then presented again with obstruction on 09/06/2021. [facility] ADMISSION (09/06/2021-09/08/2021) During his most recent admission, CT demonstrated clear dilation of proximal small bowel and nondistended distal bowel. He did continue to have bowel movements throughout that admission. He did not received steroids for that admission. He had a NG tube placed for decompression for a short period of time (hours) with drastic symptomatic improvement. By morning he was tolerating clear liquid diet and advance to a low residue diet within a matter a day or so. He was discharged for follow-up with Dr. Nguyen. CT enterography demonstrated interval resolution of small-bowel obstruction, no convincing evidence of Crohn's disease, consideration for possible obstructing diaphragms with recommendation for follow-up small bowel series. Colonoscopy 09/07 demonstrated multiple aphthous ulcers of the terminal ileum which were biopsied , otherwise normal colonic mucosa that was biopsied. All biopsies demonstrated normal mucosa. CURRENT ADMISSION (09/18/2021-09/21/2021) After discussion with Dr. Duarte, plan was to proceed with a small bowel series to hopefully visualize any existing diaphragms and determine whether these were intervenable with balloon endoscopy. However, in the very prep person of 09/18 he develops recurrence of symptoms. Sharp abdominal pain, progressive distension, progressive nausea, p.o. intolerance. He endorses diarrhea and he is continuing topass gas. No emesis. No blood in his stool. He presented to the outside hospital and was promptly transferred here to [place]. Vitals within normal limits. Laboratory evaluation including CBC, BMP essentially normal except for slight elevation platelet count (364). Lactate was within normal limits. COVID negative. CT demonstrated: few areas of circumferential mural thickening with distended bowel both proximally and distally (for example series 5 image 82, series 2 image 110); in the appropriate context, this could represent NSAID-related diaphragms. The small bowel resumes normal caliber the level of the distal ileum, without discrete obstructing lesion. Slight increase in inflammatory mesenteric lymph nodes in the right abdomen. He received pain medications in route. On arrival to the floor, he was in mild discomfort after receiving multiple pain medications in route. He did appear moderately distended with moderately tympanicupper abdomen. Only moderate tenderness diffusely. Abdominal film demonstrated persistent gastric distention and some evidence of small bowel distension. We discussed the role of an NG tube and he refused. We discussed that this could reverse some of the pathophysiology and actually help resolve obstruction. Small bowel series was conducted which demonstrated short segment of ileum at the level of the umbilicus in the right lower quadrant seen in the right lateral decubitus position may represent focal stricture. He continued to have bowel movements, diet was advanced to soft without complications and abdominal pain improved throughout hospitalization. Patient was discharged home in stable condition on 09/21/2021. In the outpatient setting patient will either undergo balloon endoscopy or surgery for the focal stricture in the ileum. PHYSICAL EXAM Constitutional:?Comfortable in bed with no acute distress. Eyes: EOMI,??no??conjunctival injection HENT:??moist MM,??no pharyngeal erythema or exudates Neck: No JVD Cardio:??Regular rate and rhythm, no murmurs, rubs or gallops, +2 radial pulses bilaterally, No LE edema Resp:?breathing comfortably on room air Gi: soft, normal bowel sounds, nontender to palpation MSK: no gross deformities of extremities appreciated Skin:??No visible rash Neuro: alert, conversing appropriately, spontaneous movement of all 4 extremities Psych: Congruent mood and affect CONSULTS ORDERED DURING THIS ADMISSION IP CONSULT TO CARE MANAGEMENT IP CONSULT TO DIETITIAN CONDITION AT DISCHARGE stable Discharge instructions were provided to the patient and caregiver(s). POSTING SUPERVISOR documented in this encounter Discharge Instructions Discharge InstructionsKahlil Crespo - 09/20/2021 8:00 AM CST You were discharged from the [facility] Gastroenterology A Service. Please identify this service name if you call with questions after hospitalization. POSTING SUPERVISOR documented in this encounter Medications at Time [...] documented as of this encounter Progress Notes Ani Hu RDN, LD - 09/21/2021 1:17 PM CST Clinical Nutrition: Education/Counseling DESCRIPTION Mr. Whitley is being seen for low fiber diet education with encouragement of 3 meals per day. ASSESSMENT Patient receptive to diet education, all questions answered at this time. See education activity fordetails. PLAN If patient remains hospitalized, will provide nutrition assessment per departmental guidelines. For questions about patient's nutritional care please contact pager [phone] on weekdays or [phone] on weekends/holidays. Silvino Mulligan M.D. - 09/20/2021 3:20 PM CST [facility]ST Gastroenterology A Progress Note SUBJECTIVE BACKGROUND Mr. Lawson Whitley is a 46 y.o. male who presents with abdominal pain, partial small-bowel obstruction. Mr. Whitley is a 41-year-old man who has had a ten year GI syndrome defined by episodes of abdominal pain and intermittent obstruction. This is associated with the prodrome of watery diarrhea, worsening abdominal pain, decreased p.o. intake, nausea, and in a number of cases subsequent vomiting. He has been hospitalized 7 times over this period of time, most recently in July and then again September 06. OVERNIGHT: Patient did report fibromyalgia pain and lower left quadrant abdominal pain. He plans to undergo small bowel study for today. We will resume his home medications after study. I have reviewed and updated the following: Past Medical History, Family History, Social History, andAllergies. Current Outpatient Medications on File Prior to Encounter: ??? aspirin 81 mg chewable tablet, Chew 81 mg daily. ??? atorvastatin (LIPITOR) 20 mg tablet, Take 20 mg by mouth at bedtime. ??? buPROPion (WELLBUTRIN SR) 100 mg 12 hr tablet, Take 100 mg by mouth daily. ??? eszopiclone (LUNESTA) 3 mg tablet, Take 3 mg by mouth at bedtime as needed for sleep. Take immediately before bedtime ??? gemfibroziL (LOPID) 600 mg tablet, Take 600 mg by mouth 2 (two) times a day before breakfast anddinner. ??? glipiZIDE (GLUCOTROL XL) 10 mg 24 hr tablet, Take 10 mg by mouth daily with breakfast. ??? LORazepam (ATIVAN) 0.5 mg tablet, Take 1 mg by mouth at bedtime as needed (sleep). ??? metoprolol succinate (TOPROL-XL) 25 mg 24 hr tablet, Take 25 mg by mouth 2 (two) times a day. Donot crush or chew. ??? omeprazole (PriLOSEC) [address] capsule, Take 40 mg by mouth every morning before breakfast. ??? oxyCODONE-acetaminophen (PERCOCET) 7.5-325 mg per tablet, Take 2 tablets by mouth every 6 (six) hours as needed for pain. ??? pregabalin (LYRICA) 100 mg capsule, Take 100 mg by mouth 2 (two) times a day. ??? SITagliptin (JANUVIA) 100 mg tablet, Take 100 mg by mouth daily. REVIEW OF SYSTEMS Pertinent items are noted in HPI; all other review of systems was negative. OBJECTIVE VITAL SIGNS Temperature: [36.2 ??C-36.6 ??C] 36.6 ??C Heart Rate: [80-106] 80 Resp Rate: [10-24] 13 Blood Pressure: (114-144)/(81-92) 138/92 SpO2: [89 %-99 %] 97 % Pulse Rate: [71-106] 81 PHYSICAL EXAMINATION Constitutional: No acute respiratory distress on room air Eyes: PERRL, EOMI, no conjunctival injection HENT: moist MM, no pharyngeal erythema or exudates Neck: No JVD Cardio: Regular rate and rhythm, no murmurs, rubs or gallops, +2 radial pulses bilaterally, No LE edema Resp: clear to auscultation bilaterally Gi: Moderately distended, normal bowel sounds throughout, tender to lower left quadrant MSK: no gross deformities of extremities appreciated Skin: No visible rash Neuro: alert, conversing appropriately, spontaneous movement of all 4 extremities Psych: Congruent mood and affect, absolutely pleasant in conversation ASSESSMENT / PLAN Mr. Whitley is hospitalized on [facility] Gastroenterology A for evaluation and management of Small Bowel Stricture Personal History. In summary, this is a patient with a history of recurrent small bowel obstruction with increased frequency over the last few months. Plan to undergo small bowel study to assess obstruction. Plan for today: -small-bowel study -continue home medications # Small Bowel Stricture Personal History # partial small-bowel obstruction # history NSAID use # ongoing outpatient workup with concern for obstructing diaphragms involving small bowel - Small bowel study -dilaudid 0.2 IV q.4 hours p.r.n. -minimize opioid use #T2DM -moderate dose sliding scale insulin Baseline Mobility: BMAT Level 4 (Able to stand and walk) Diet: NPO diet Tubes/lines: PIV VTE prophylaxis: enoxaparin Code status: Full Code Surrogate Decision Maker: Spouse, Terra Disposition: Uncertain POSTING SUPERVISOR El Andrew M.D. - 09/20/2021 10:03 AM CST Inpatient Progress Note 09/20/2021 This is a supervisory note for JOSE Tejeda service. I have reviewed the available records, interviewed and examined the patient. I agree with the history, physical examination, and plan as outlined in Dr. JOSE Tejeda service's note from today. Subjective: He continues to have abdominal pain; requiring opioids. Had a relatively normal stool earlier today.He remains NPO Objective: Temperature: [36.2 ??C-36.5 ??C] 36.2 ??C Heart Rate: [80-106] 80 Resp Rate: [10-24] 13 Blood Pressure: (114-144)/(81-92) 138/92 SpO2: [89 %-99 %] 97 % Pulse Rate: [71-106] 81 Physical Exam: He looks comfortable. Obese abdomen with normal bowel sounds. Minimally tender; not obviously distended Assessment / Plan: #1 Small Bowel Stricture Personal History Patient was seen with GI A service We are proceeding with a small bowel xray today to look for a stricture or small bowel diaphragm that would be amenable for endoscopic dilation. Continue current supportive care. Kellen Rahman, R.Ph. - 09/19/2021 8:33 AM CST Pharmacist Progress Note Reason for admission: partial small bowel obstruction PMH: recurrent episodes abd pain/obstruction, DM2, fibromyalgia, anxiety, unspecified cardiac disease OBJECTIVE Home medications: per [facility] -- Held: all PO meds due to obstruction VTE prophylaxis: Lovenox Estimated Creatinine Clearance: 135.1 mL/min (by C-G formula based on SCr of 0.92 mg/dL). ASSESSMENT / PLAN 1) PSBO, ongoing outpatient work-up - NPO, IV fluid, PRN Dilaudid IV. Patient refusing NG for decompression. Megan Downs, R.Ph. Kellen Rahman R.Ph. - 09/18/2021 3:00 PM CST Admission Medication History Note Adherence issues: No concerns Medication list source: Patient Prior to Admission Medications aspirin 81 mg chewable tablet Chew 81 mg daily. atorvastatin (LIPITOR) 20 mg tablet Take 20 mg by mouth at bedtime. buPROPion (WELLBUTRIN SR) 100 mg 12 hr tablet Take 100 mg by mouth daily. eszopiclone (LUNESTA) 3 mg tablet Take 3 mg by mouth at bedtime as needed for sleep. Take immediately before bedtime gemfibroziL (LOPID) 600 mg tablet Take 600 mg by mouth 2 (two) times a day before breakfast and dinner. glipiZIDE (GLUCOTROL XL) 10 mg 24 hr tablet Take 10 mg by mouth daily with breakfast. LORazepam (ATIVAN) 0.5 mg tablet Take 1 mg by mouth at bedtime as needed (sleep). metoprolol succinate (TOPROL-XL) 25 mg 24 hr tablet Take 25 mg by mouth 2 (two) times a day. Do not crush or chew. omeprazole (PriLOSEC) [address] capsule Take 40 mg by mouth every morning before breakfast. oxyCODONE-acetaminophen (PERCOCET) 7.5-325 mg per tablet Take 2 tablets by mouth every 6 (six) hours as needed for pain. pregabalin (LYRICA) 100 mg capsule Take 100 mg by mouth 2 (two) times a day. SITagliptin (JANUVIA) 100 mg tablet Take 100 mg by mouth daily. POSTING SUPERVISOR documented in this encounter H&P Notes El Andrew M.D. - 09/19/2021 10:34 AM CST Hospital Admission Note Date: 09/19/2021 Chief Complaint/Reason for Admission: Small Bowel Stricture Personal History This is a supervisory note for Dr. Neil. I have reviewed the available records, interviewed and examined the patient. I agree with the history, physical examination, and plan as outlined in Dr. Neil's admission note from 09/18/2021. History of Present Illness: Mr. Whitley is a 46 y.o. male who is admitted with recurrent abdominal pain with imaging consistentwith partial small bowel obstruction. Multiple stereotypical painful episodes; multiple in the past few months. Severe generalized pain with modest distension; minimal vomiting. Intolerant to NG tube placement. Overnight with conservative management and low dose opioids he is more comfortable. Review of Systems: All other systems reviewed and negative unless mentioned in the history of present illness or problem list. History Review: I reviewed the patient's allergies, current medications, family history, medical history, social history, surgical history and problem list. Objective: Vital Signs: Temperature: [36.3 ??C-36.6 ??C] 36.4 ??C Heart Rate: [74-113] 100 Resp Rate: [8-23] 16 Blood Pressure: (120-138)/(68-83) 129/71 SpO2: [85 %-98 %] 92 % Flow Rate (L/min): [0 L/min] 0 L/min Pulse Rate: [72-104] 102 Physical Exam: General: Resting comfortably in NAD; Eyes: No icterus or inflammation Mouth: Normal oropharynx without aphthous ulcers Neck: No cervical or supraclavicular lymphadenopathy. No thyroid masses or tenderness. Lungs: Clear Heart: Regular Abdomen: modestly distended. Tender to direct palpation left lower. Bowel sounds present. Extremities: no edema cords or calf tenderness Skin: Anicteric without rash Psych: alert, oriented, appropriate He appears in no distress Assessment/Plan: #1 Small Bowel Stricture Personal History This is consistent with a partial obstruction with imaging suggestive of small bowel strictures/ diaphragm disease. We will proceed with a contrast study of his small bowel tomorrow; if feasible we would consider a balloon assisted (double) for potential dilatation if a focal lesion can be identified. Alternatively, consider surgical consultation. Agree with conservative and supportive plans. POSTING SUPERVISOR Raul Neil M.D. - 09/18/2021 9:22 PM CST RST Gastroenterology A Admission Note SUBJECTIVE CHIEF COMPLAINT Partial small-bowel obstruction HISTORY OF PRESENT ILLNESS Mr. Lawson Whitley is a 46 y.o. male who presents with abdominal pain, partial small-bowel obstruction. Mr. Whitley is a 41-year-old man who has had a ten year GI syndrome defined by episodes of abdominal pain and intermittent obstruction. This is associated with the prodrome of watery diarrhea, worsening abdominal pain, decreased p.o. intake, nausea, and in a number of cases subsequent vomiting. He has been hospitalized 7 times over this period of time, most recently in July and then again September 06. Presumptive diagnosis in the past was Crohn's. Diagnostic workup was notable for the following: -He has had three colonoscopies, two of which suggested the possibility of mild ileal inflammation including one exam that showed localized aphthous ulcers. The biopsies only showed nonspecific focal ileitis. -[facility] saw him here in 2016, said no dx of IBD, seems steroid responsive but not appropriate forlong-term immunosuppression w/o dx criteria and proposed colonoscopy and CT enterography here. He did the colonoscopy only, which was totally normal. -He has had one upper endoscopy around 2013 that was essentially normal. No duodenal biopsies were done. -He did undergo pill enteroscopy at [facility] which was unrevealing, date unclear. In all prior hospitalizations, aside from most recent 1 here to [place], he has received a course of steroids (5-7 days) followed by taper. The majority of these hospitalizations were at [facility]. He did complete a taper on 08/24 in then presented again with obstruction to. During his most recent admission, CT demonstrated clear dilation of proximal small bowel and nondistended distal bowel. He did continue to have bowel movements throughout that admission. He did not received steroids for that admission. He had a NG tube placed for decompression for a short period of time (hours) with drastic symptomatic improvement. By morning he was tolerating clear liquid diet and advance to a low residue diet within a matter a day or so. He was discharged for follow-up with Dr. Nguyen. CT enterography demonstrated interval resolution of small-bowel obstruction, no convincing evidence of Crohn's disease, consideration for possible obstructing diaphragms with recommendation for follow-up small bowel series. Colonoscopy 09/07 demonstrated multiple aphthous ulcers of the terminal ileum which were biopsied , otherwise normal colonic mucosa that was biopsied. All biopsies demonstrated normal mucosa. After discussion with Dr. Duarte, plan was to proceed with a small bowel series to hopefully visualize any existing diaphragms and determine whether these were intervenable with balloon endoscopy. However, in the very prep person of 09/18 he develops recurrence of symptoms. Sharp abdominal pain,progressive distension, progressive nausea, p.o. intolerance. He endorses diarrhea and he is continuing to pass gas. No emesis. No blood in his stool. He presented to the outside hospital and was promptly transferred here to [place]. Vitals within normal limits. Laboratory evaluation including CBC, BMP essentially normal except for slight elevation platelet count (364). Lactate was within normal limits. COVID negative. CT demonstrated: few areas of circumferential mural thickening with distended bowel both proximally and distally (for example series 5 image 82, series 2 image 110); in the appropriate context, this could represent NSAID-related diaphragms. The small bowel resumes normal caliber the level of the distal ileum, without discrete obstructing lesion. Slight increase in inflammatory mesenteric lymph nodes in the right abdomen. He received pain medications in route. On arrival to the floor, he was in mild discomfort after receiving multiple pain medications in route. He did appear moderately distended with moderately tympanic upper abdomen. Only moderate tenderness diffusely. Abdominal film demonstrated persistent gastric distention and some evidence of small bowel distension. We discussed the role of an NG tube. We discussed that this could reverse some of the pathophysiology and actually help resolve obstruction. We reviewed that in obstruction could progress and become more severe and even potentially become life-threatening. He was very much against placing an NG tube at that point. We agreed to monitor symptoms. We discussed that a pain regimen could potentially interfere with resolution of the obstruction and may be counterproductive. Given his discomfort, he was preferring to proceed with small doses of opioids as to pr event masking significant symptoms as well as minimize affecting gut motility, though he acknowledges that this was still a suboptimal medical management as opposed to decompression. Thus we opted to monitor symptoms with the understanding that if he had progressive symptoms NG tubewould be the next step. I have reviewed and updated the following: Past Medical History, Family History, Social History, andAllergies. Current Outpatient Medications on File Prior to Encounter: ??? aspirin 81 mg chewable tablet, Chew 81 mg daily. ??? atorvastatin (LIPITOR) 20 mg tablet, Take 20 mg by mouth at bedtime. ??? buPROPion (WELLBUTRIN SR) 100 mg 12 hr tablet, Take 100 mg by mouth daily. ??? eszopiclone (LUNESTA) 3 mg tablet, Take 3 mg by mouth at bedtime as needed for sleep. Take immediately before bedtime ??? gemfibroziL (LOPID) 600 mg tablet, Take 600 mg by mouth 2 (two) times a day before breakfast anddinner. ??? glipiZIDE (GLUCOTROL XL) 10 mg 24 hr tablet, Take 10 mg by mouth daily with breakfast. ??? LORazepam (ATIVAN) 0.5 mg tablet, Take 1 mg by mouth at bedtime as needed (sleep). ??? metoprolol succinate (TOPROL-XL) 25 mg 24 hr tablet, Take 25 mg by mouth 2 (two) times a day. Donot crush or chew. ??? omeprazole (PriLOSEC) [address] capsule, Take 40 mg by mouth every morning before breakfast. ??? oxyCODONE-acetaminophen (PERCOCET) 7.5-325 mg per tablet, Take 2 tablets by mouth every 6 (six) hours as needed for pain. ??? pregabalin (LYRICA) 100 mg capsule, Take 100 mg by mouth 2 (two) times a day. ??? SITagliptin (JANUVIA) 100 mg tablet, Take 100 mg by mouth daily. ??? [DISCONTINUED] [id number] ogp-[id number]-asb-C (MOVIPREP) 100-7.5-2.691 gram per packet, Drink 1st portion of prep at 6 PM the evening before. 2nd portion must be started 3 hours before and finished2 hours prior to report time REVIEW OF SYSTEMS Pertinent items are noted in HPI; all other review of systems was negative. OBJECTIVE VITAL SIGNS Temperature: [36.5 ??C-36.6 ??C] 36.6 ??C Heart Rate: [89-95] 89 Resp Rate: [11-18] 16 Blood Pressure: (120-138)/(80-83) 138/81 SpO2: [92 %-95 %] 95 % Height: [185 cm] 185 cm Weight: [119 kg] 119 kg BSA (Calculated - sq m): [2.47 sq meters] 2.47 sq meters BMI (Calculated): [34.7 kg/m??] 34.7 kg/m?? Pulse Rate: [88-95] 91 PHYSICAL EXAMINATION Constitutional: Mildly uncomfortable, no acute respiratory distress on room air Eyes: PERRL, EOMI, no conjunctival injection HENT: moist MM, no pharyngeal erythema or exudates Neck: No JVD Cardio: Regular rate and rhythm, no murmurs, rubs or gallops, +2 radial pulses bilaterally, No LE edema Resp: clear to auscultation bilaterally Gi: Moderately distended, normal bowel sounds throughout, moderately tender to palpation particularly in upper quadrants, tympanic to percussion MSK: no gross deformities of extremities appreciated Skin: No visible rash Neuro: alert, conversing appropriately, spontaneous movement of all 4 extremities Psych: Congruent mood and affect, absolutely pleasant in conversation ASSESSMENT / PLAN Mr. Whitley is hospitalized on [facility] for evaluation and management of Small Bowel Stricture Personal History. In summary, this is a patient with a history of recurrent small bowel obstruction with increased frequency over the last few months. We are continuing to monitor closely as patient is refusing NG tube. At this point, no evidence of strangulation, no emesis, no acute abdomen on exam, still having bowel movements and passing gas. As such, no immediate indication to contact surgery, though he is p.o. intolerance and we will continue to communicate the importance of decompression to the patient. He has ongoing workup outpatient. It may be that we can pursue small-bowel series here in the hospital. In the meantime, he will remain NPO we will continue to watch for signs that he needs more urgent decompression or even surgical evaluation. # Small Bowel Stricture Personal History # partial small-bowel obstruction # history NSAID use # ongoing outpatient workup with concern for obstructing diaphragms involving small bowel -IV maintenance fluid -dilaudid 0.2 IV q.4 hours p.r.n. -minimize opioid use -NPO -continue to discuss role for NG tube and decompression #T2DM -moderate dose sliding scale insulin Baseline Mobility: BMAT Level 4 (Able to stand and walk) Diet: NPO diet Tubes/lines: PIV VTE prophylaxis: enoxaparin Code status: Full Code Surrogate Decision Maker: Spouse, Terra Disposition: Uncertain POSTING SUPERVISOR documented in this encounter Consult Notes Melody Gayle M.S.N., R.N. - 09/19/2021 10:26 AM CSTAssociated Order(s): IP CONSULT TO CARE MANAGEMENT SUBJECTIVE Reason for Referral: A Consult received for Advance Directive materials/education. Care management met with patient. Education provided on the benefits of completing an Advance Directive and resources that may assist them in this process including access to a notary. Offered Advance Health Care Planning: Making Your Wishes Known 2107-05 booklet, which was accepted. Education regarding the Care Management role and how to access a member of the Care Management team for further support or questions was shared. OBJECTIVE NA ASSESSMENT / PLAN ASSESSMENT The patient appear to have an understanding of how to complete an Advance Directive and report awareness of resources to assist them. PLAN 1) Patient to complete an Advance Directive if desired. 2) If the Advance Directive is completed, the patient retains the original and a copy is sent to scanning to be added to the patient's electronic health record. 3) Care Management will continue to be available as needs or questions arise. Ann Hughes, R.N. 09/19/2021 POSTING SUPERVISOR documented in this encounter Nursing Notes Chauncey Galvan R.N. - 09/21/2021 3:47 PM CST Patient hospitalized for SBO. Discharged home today with self care. All discharge instruction given to patient, patient verbalize understanding, questions answered approprieatly. Family providing transportation home. POSTING SUPERVISOR Blake Diaz R.N. - 09/20/2021 6:41 AM CST Shift Goals: Clinical Goals for the Shift: Patient will rate pain < 7 this shift Identify possible barriers to meeting goals/advancing plan of care: Pt having difficulty with pain control. Receiving Dilaudid every 4 hrs PRN. Pt was given Ativan for anxiety. Tylenol headache pain and Melatonin for sleep. End of Shift Summary: Pt paced johnson most of the night, very little sleep. Pushed out his Protonix aspatient was in bed at this time. POSTING SUPERVISOR Brittany Romero R.N. - 09/19/2021 6:44 PM CST Problem: PAIN - ADULT Goal: PT VERBALIZES/DEMONSTRATES ADEQUATE COMFORT LEVEL OR BASELINE Outcome: Progressing Note: Patient rated pain 5-8/10 this shift. Patient reported prn dilaudid helped the pain, however he has been sneezing intermittently which increases the pain again. Problem: SAFETY ADULT - RISK FOR FALL AND OR FALL INJURY Goal: Patient remains free from fall/fall injury Outcome: Progressing Note: Patient remained safe and free from falls this shift. Patient ambulated independently in the hallway twice today. Shift Goals: Clinical Goals for the Shift: Patient will rate pain < 7 this shift Identify possible barriers to meeting goals/advancing plan of care: diagnosis End of Shift Summary: Goal not met, see above for details. Patient had no complaints of nausea today. Patient remains NPO. Patient received IV fluids majority of the day. Vital signs remain stable. POSTING SUPERVISOR Kayleen Washington R.N. - 09/18/2021 6:23 PM CST Problem: PAIN - ADULT Goal: PT VERBALIZES/DEMONSTRATES ADEQUATE COMFORT LEVEL OR BASELINE Outcome: Progressing Shift Goals: Clinical Goals for the Shift: Patient will remain free from pain. Identify possible barriers to meeting goals/advancing plan of care: No barriers identified. End of Shift Summary: Service met with patient and discussed treatment options and patients recent adb xray. Patient refusing NG tube jake. Patient currently NPO w/fluids running. at bedside, involved in care. Patient has hx of GI obstructive symptoms. POSTING SUPERVISOR documented in this encounter Miscellaneous Notes Hospital Course - Silvino Belle M.D. - 09/18/2021 11:01 PM CST Mr. Whitley is a 41-year-old man who has had a ten year GI syndrome defined by episodes of abdominal pain and intermittent obstruction. This is associated with the prodrome of watery diarrhea, worsening abdominal pain, decreased p.o. intake, nausea, and frequent episodes of nonbloody nonbilious emesis. He has been hospitalized 7 times over this period of time, most recently in July and then againFebruary . BACKGROUND Presumptive diagnosis in the past was Crohn's. Diagnostic workup was notable for the following: -He has had three colonoscopies, two of which suggested the possibility of mild ileal inflammation including one exam that showed localized aphthous ulcers. The biopsies only showed nonspecific focal ileitis. -[facility] saw him here in 2017, said no dx of IBD, seems steroid responsive but not appropriate forlong-term immunosuppression w/o dx criteria and proposed colonoscopy and CT enterography here. He did the colonoscopy only, which was totally normal. -He has had one upper endoscopy around 2013 that was essentially normal. No duodenal biopsies were done. -He did undergo pill enteroscopy at [facility] which was unrevealing, date unclear. In all prior hospitalizations, aside from most recent visit here at [place], he has received a course of steroids (5-7 days) followed by taper. The majority of these hospitalizations were at [facility]. He did complete a taper on 08/24/2021 in then presented again with obstruction on 09/06/2021. [facility] ADMISSION (09/06/2021-09/08/2021) During his most recent admission, CT demonstrated clear dilation of proximal small bowel and nondistended distal bowel. He did continue to have bowel movements throughout that admission. He did not received steroids for that admission. He had a NG tube placed for decompression for a short period of time (hours) with drastic symptomatic improvement. By morning he was tolerating clear liquid diet and advance to a low residue diet within a matter a day or so. He was discharged for follow-up with Dr. Nguyen. CT enterography demonstrated interval resolution of small-bowel obstruction, no convincing evidence of Crohn's disease, consideration for possible obstructing diaphragms with recommendation for follow-up small bowel series. Colonoscopy 09/07 demonstrated multiple aphthous ulcers of the terminal ileum which were biopsied , otherwise normal colonic mucosa that was biopsied. All biopsies demonstrated normal mucosa. CURRENT ADMISSION (09/18/2021-09/21/2021) After discussion with Dr. uDarte, plan was to proceed with a small bowel series to hopefully visualize any existing diaphragms and determine whether these were intervenable with balloon endoscopy. However, in the very prep person of 09/18 he develops recurrence of symptoms. Sharp abdominal pain, progressive distension, progressive nausea, p.o. intolerance. He endorses diarrhea and he is continuing topass gas. No emesis. No blood in his stool. He presented to the outside hospital and was promptly transferred here to [place]. Vitals within normal limits. Laboratory evaluation including CBC, BMP essentially normal except for slight elevation platelet count (364). Lactate was within normal limits. COVID negative. CT demonstrated: few areas of circumferential mural thickening with distended bowel both proximally and distally (for example series 5 image 82, series 2 image 110); in the appropriate context, this could represent NSAID-related diaphragms. The small bowel resumes normal caliber the level of the distal ileum, without discrete obstructing lesion. Slight increase in inflammatory mesenteric lymph nodes in the right abdomen. He received pain medications in route. On arrival to the floor, he was in mild discomfort after receiving multiple pain medications in route. He did appear moderately distended with moderately tympanicupper abdomen. Only moderate tenderness diffusely. Abdominal film demonstrated persistent gastric distention and some evidence of small bowel distension. We discussed the role of an NG tube and he refused. We discussed that this could reverse some of the pathophysiology and actually help resolve obstruction. Small bowel series was conducted which demonstrated short segment of ileum at the level of the umbilicus in the right lower quadrant seen in the right lateral decubitus position may represent focal stricture. He continued to have bowel movements, diet was advanced to soft without complications and abdominal pain improved throughout hospitalization. Patient was discharged home in stable condition on 09/21/2021. POSTING SUPERVISOR documented in this encounter Plan of Treatment Not on filedocumented as of this encounter Procedures Procedure Name Priority Date/Time Associated Comments Diagnosis DX ABDOMEN 1 VIEW RAD - Routine 09/21/2021 8:36 Result s for (most inpatients AM BILLPOSTING SUPERVISOR this proced ure and all are in the outpatients) results section. POTASSIUM, S/P STAT 09/21/2021 6:50 Results fo r AM BILLPOSTING SUPERVISOR this procedure are in the results section. CBC WITH Routine 09/21/2021 4:13 Results for DIFFERENTIAL, B AM BILLPOSTING SUPERVISOR this procedu re are in the results section. BASIC METABOLIC Routine 09/21/2021 4:13 Results f or PANEL, S/P AM BILLPOSTING SUPERVISOR this procedure are in the results section. GLUCOSE POCT, B Routine 09/20/2021 6:48 Results f or PM BILLPOSTING SUPERVISOR this procedure are in the results section. FL SMALL BOWEL SINGLE RAD - Routine 09/20/2021 3:18 Re sults for CONTRAST (most inpatients PM BILLPOSTING SUPERVISOR this proced ure and all are in the outpatients) results section. GLUCOSE POCT, B Routine 09/20/2021 11:00 Results for AM BILLPOSTING SUPERVISOR this procedure are in the results section. GLUCOSE POCT, B Routine 09/20/2021 7:54 Results f or AM BILLPOSTING SUPERVISOR this procedure are in the results section. GLUCOSE POCT, B Routine 09/19/2021 7:55 Results f or PM BILLPOSTING SUPERVISOR this procedure are in the results section. GLUCOSE POCT, B Routine 09/19/2021 4:30 Results f or PM BILLPOSTING SUPERVISOR this procedure are in the results section. GLUCOSE POCT, B Routine 09/19/2021 11:23 Results for AM BILLPOSTING SUPERVISOR this procedure are in the results section. GLUCOSE POCT, B Routine 09/19/2021 8:10 Results f or AM BILLPOSTING SUPERVISOR this procedure are in the results section. GLUCOSE POCT, B Routine 09/19/2021 6:09 Results f or AM BILLPOSTING SUPERVISOR this procedure are in the results section. CBC WITH Routine 09/19/2021 5:07 Results for DIFFERENTIAL, B AM BILLPOSTING SUPERVISOR this procedu re are in the results section. LACTATE, B/P Timed 09/19/2021 5:07 Results for AM BILLPOSTING SUPERVISOR this procedure are in the results section. BASIC METABOLIC Routine 09/19/2021 5:07 Results f or PANEL, S/P AM BILLPOSTING SUPERVISOR this procedure are in the results section. GLUCOSE POCT, B Routine 09/18/2021 9:46 Results f or PM BILLPOSTING SUPERVISOR this procedure are in the results section. GLUCOSE POCT, B Routine 09/18/2021 5:28 Results f or PM BILLPOSTING SUPERVISOR this procedure are in the results section. DX ABDOMEN PORTABLE RAD - Semiurgent 09/18/2021 3:41 R esults for ANTERIOR POSTERIOR 1 (Fast; most ED PM BILLPOSTING SUPERVISOR this procedure VIEW patients; some are in the inpatients) results section. SARS CORONAVIRUS 2, Routine 09/18/2021 3:17 Resul ts for RNA, RAPID POC, V PM BILLPOSTING SUPERVISOR this proce dure are in the results section. CBC WITH Routine 09/18/2021 3:12 Results for DIFFERENTIAL, B PM BILLPOSTING SUPERVISOR this procedu re are in the results section. LACTATE, B/P Routine 09/18/2021 3:12 Results for PM BILLPOSTING SUPERVISOR this procedure are in the results section. BASIC METABOLIC Routine 09/18/2021 3:12 Results f or PANEL, S/P PM BILLPOSTING SUPERVISOR this procedure are in the results section. INTERPRETATION OF RAD - Routine 09/18/2021 3:02 Result s for OUTSIDE CT ABDOMEN (most inpatients PM BILLPOSTING SUPERVISOR this procedure AND OR PELVIS and all are in the outpatients) results section. documented in this encounter Results DX Abdomen 1 View (09/21/2021 8:36 AM BILLPOSTING SUPERVISOR) Anatomical Region Laterality Modality Abdomen, Abdominal RST LOS, Abdominal ARZ LOS, N/A Digital Radiography Abdominal FLA LOS Specimen (Source) Anatomical Collection Method Collection Time Re ceived Time Location / / Volume Laterality 09/21/2021 8:38 AM BILLPOSTING SUPERVISOR Impressions 09/21/2021 8:49 AM BILLPOSTING SUPERVISOR Enteric contrast is visualized throughout the colon which appears normal in caliber. Enteric contrast is visualized within th e appendix. Paucity of small bowel gas. The visualized lung bases are clear. Narrative 09/21/2021 8:49 AM BILLPOSTING SUPERVISOR EXAM: ??DX ABDOMEN 1 VIEW Procedure Note Nikos Marlow M.D. - 09/21/2021Forma tting of this note might be different from the original. EXAM: DX ABDOMEN 1 VIEW IMPRESSION: Enteric contrast is visualized throughou t the colon which appears normal in caliber. Enteric contrast is visualized within th e appendix. Paucity of small bowel gas. The visualized lung bases are clear. Shannon [place], B.Ch. IMG DIAGNOSTIC IMAGING AR OCEDURES Potassium (09/21/2021 6:50 AM BILLPOSTING SUPERVISOR) P athologist Signature Potassium, S 4.3 3.6 - 5.2 09/21/2021 DTL mmol/L 7:42 AM BILLPOSTING SUPERVISOR Specimen Anatomical Collection Method Collection Time Receive d Time (Source) Location / / Volume Laterality Blood 09/21/2021 6:50 AM 7:30 BILLPOSTING SUPERVISOR AM BILLPOSTING SUPERVISOR Silvino Belle M.D. LAB BLOOD ADD-ON Performing Organization Address City/State/ZIP Code Phon e Number [facility] - [address] [place], [place] [address] [facility] [place] [address] [facility] [address] (ABNORMAL) Basic Metabolic Panel (09/21/2021 4:13 AM BILLPOSTING SUPERVISOR) P athologist Signature Potassium, S CANCELED mmol/L 09/21/2021 DTL 7:10 AM BILLPOSTING SUPERVISOR Comment: Specimen was hemolyzed. Redraw has been ordered and is in progre ss. Result canceled by the ancillary. Sodium, S 141 135 - 145 mmol/L 09/21/2021 5:56 AM BILLPOSTING SUPERVISOR DTL Chloride, S 102 98 - 107 mmol/L 09/21/2021 5:56 AM BILLPOSTING SUPERVISOR DTL Bicarbonate, S 25 22 - 29 mmol/L 09/21/2021 5:[address] DTL Anion Gap 14 7 - 15 09/21/2021 5:56 AM BILLPOSTING SUPERVISOR DTL BUN (Blood Urea Nitrogen), S 6 (L) 8 - 24 mg/dL 09/22/19 5:56 AM BILLPOSTING SUPERVISOR DTL Creatinine 0.88 0.74 - 1.35 mg/dL 09/21/2021 5:56 AM CS T DTL eGFR-Non Black/ >90 >=60 mL/min/BSA 09/21/2021 5:56 AM BILLPOSTING SUPERVISOR DTL [place] Comment: ----ADDITIONAL INFORMATION---- Estimated GFR calculated using the 2009 CKD_EPI creatinine equation. eGFR-Black/ >90 >=60 mL/min/BSA 2021 5:56 AM BILLPOSTING SUPERVISOR DTL Comment: ----ADDITIONAL INFORMATION---- Estimated GFR calculated using the 2009 CKD_EPI creatinine equation. Calcium, Total, S 8.7 8.6 - 10.0 mg/dL 09/21/2021 5:56 AM BILLPOSTING SUPERVISOR DTL Glucose, S 92 70 - 140 mg/dL 09/21/2021 5:56 AM BILLPOSTING SUPERVISOR D TL Specimen Anatomical Collection Method Collection Time Receive d Time (Source) Location / / Volume Laterality Blood (Blood, 09/21/2021 4:13 AM 09/22/19 5:37 Venous) BILLPOSTING SUPERVISOR AM BILLPOSTING SUPERVISOR Silvino Belle M.D. LAB BLOOD ADD-ON Performing Organization Address City/State/ZIP Code Phon e Number [facility] - [address] [place], [place] [address] [facility] [place] [address] [facility] [address] (ABNORMAL) CBC with Differential, Blood (09/21/2021 4:13 AM BILLPOSTING SUPERVISOR) [facility] gist Method Time Signature Hemoglobin 14.0 13.2 - 09/21/2021 DTL 16.6 g/dL 5:32 AM BILLPOSTING SUPERVISOR Hematocrit 42.7 38.3 - 09/21/2021 DTL 48.6 % 5:32 AM BILLPOSTING SUPERVISOR Erythrocytes 4.61 4.35 - 09/21/2021 DTL 5.65 5:32 AM BILLPOSTING SUPERVISOR x10(12)/L MCV 92.6 78.2 - 09/21/2021 DTL 97.9 fL 5:32 AM BILLPOSTING SUPERVISOR RBC Distrib Width 14.8 (H) 11.8 - 09/21/2021 DTL 14.5 % 5:32 AM BILLPOSTING SUPERVISOR Platelet Count 305 135 - 317 09/21/2021 DTL x10(9)/L 5:32 AM BILLPOSTING SUPERVISOR Leukocytes 4.7 3.4 - 9.6 09/21/2021 DTL x10(9)/L 5:32 AM BILLPOSTING SUPERVISOR Neutrophils 2.16 1.56 - 09/21/2021 DTL 6.45 5:32 AM BILLPOSTING SUPERVISOR x10(9)/L Lymphocytes 1.83 0.95 - 09/21/2021 DTL 3.07 5:32 AM BILLPOSTING SUPERVISOR x10(9)/L Monocytes 0.41 0.26 - 09/21/2021 DTL 0.81 5:32 AM BILLPOSTING SUPERVISOR x10(9)/L Eosinophils 0.33 0.03 - 09/21/2021 DTL 0.48 5:32 AM BILLPOSTING SUPERVISOR x10(9)/L Basophils <0.03 0.01 - 09/21/2021 DTL 0.08 5:32 AM BILLPOSTING SUPERVISOR x10(9)/L Specimen Anatomical Collection Method Collection Time Receive d Time (Source) Location / / Volume Laterality Blood (Blood, 09/21/2021 4:13 AM 09/22/19 5:21 Venous) BILLPOSTING SUPERVISOR AM BILLPOSTING SUPERVISOR Silvino Belle M.D. LAB BLOOD ADD-ON Performing Organization Address City/State/ZIP Code Phon e Number [facility] - [address] [place], [place] [address] [facility] [place] [address] [facility] [address] Glucose, POCT (09/20/2021 6:48 PM BILLPOSTING SUPERVISOR) Analysis Performed At Patho logist Time Signature Glucose, POCT, 89 70 - 140 09/20/2021 PCLX B mg/dL 6:53 PM BILLPOSTING SUPERVISOR Site Capillary 09/20/2021 PCLX 6:53 PM BILLPOSTING SUPERVISOR Last Intake NPO 09/20/2021 PCLX 6:53 PM BILLPOSTING SUPERVISOR Specimen Anatomical Collection Method Collection Time Receive d Time (Source) Location / / Volume Laterality Blood 09/20/2021 6:48 PM 6:53 BILLPOSTING SUPERVISOR PM BILLPOSTING SUPERVISOR Unknown Provider LAB POCT ORDERABLES-MANUAL Performing Organization Address City/State/ZIP Code Phon e Number [facility] [address] [place] [address] PCLX [facility] [place] [address] [place] [facility] [address] [place] Small Bowel Single Contrast (09/20/2021 3:18 PM BILLPOSTING SUPERVISOR) Anatomical Region Laterality Modality Gastro Intestinal, Abdominal RST LOS, Abdominal ARZ N/A Digital Radiography LOS, Abdominal FLA LOS Specimen (Source) Anatomical Collection Method Collection Time Re ceived Time Location / / Volume Laterality 09/20/2021 3:32 PM BILLPOSTING SUPERVISOR Impressions 09/20/2021 4:18 PM BILLPOSTING SUPERVISOR 1. Short segment of ileum at the level of the umbilicus in the right lower quadrant seen in the right lateral decubitus position may rep resent focal stricture however AP view correlate was not easily identified. 2. Examination was terminated early seco ndary to lightheadedness and mild hypotensive episode treated conservatively. Recommend serial radiographs to evaluate the terminal ileum. Narrative 09/20/2021 4:18 PM BILLPOSTING SUPERVISOR EXAM: ??FL SMALL BOWEL SINGLE CONTRAST COMPARISON: ??CT abdomen and pelvis 08/25. FINDINGS: ??Single contrast small bowel examination was performed using 700 cc barium contrast. Contrast was followed intermittently for approximately 1 hour after initiation. Contrast reached the ileum however did not reach the terminal ileum. Examination was terminated secondary to patient becoming lightheaded and hypotensive. To further evaluate the remaining ileum, recommend serial radiographs. The contrast easily passed from the esop hagus to the stomach in the stomach to the proximal small bowel. There was an indeterminate region of ileum which did not fully distend at the level of the umbilicus in the right lower quadrant (s eries 12) which may represent focal stricture. The region in question was not easily identified on th e AP view for correlation. No other regions of small bowel are identified that were concerning for stricture/stenosis. No leakage of contrast from the bowel. Procedure Note Jazzy James M.D. - 09/20/2021[place] ing of this note might be different from the original. EXAM: FL SMALL BOWEL SINGLE CONTRAST COMPARISON: CT abdomen and pelvis 2021. FINDINGS: Single contrast small bowel ex amination was performed using 700 cc barium contrast. Contrast was followed intermittently for approximately 1 hour after initiation. Contrast reached the ileum however did not reach the terminal ileum. Examination was terminated secondary to patient becoming lightheaded and hypotensive. To further evaluate the remaining ileum, recommend serial radiographs. The contrast easily passed from the esop hagus to the stomach in the stomach to the proximal small bowel. There was an indeterminate region of ileum which did not fully distend at the level of the umbilicus in the right lower quadrant (s eries 12) which may represent focal stricture. The region in question was not easily identified on th e AP view for correlation. No other regions of small bowel are identified that were concerning for stricture/stenosis. No leakage of contrast from the bowel. IMPRESSION: 1. Short segment of ileum at the level o f the umbilicus in the right lower quadrant seen in the right lateral decubitus position may rep resent focal stricture however AP view correlate was not easily identified. 2. Examination was terminated early seco ndary to lightheadedness and mild hypotensive episode treated conservatively. Recommend serial radiographs to evaluate the terminal ileum. Raul Neil M.D. IMG FLUOROSCOPY PROCEDURES Glucose, POCT (09/20/2021 11:00 AM BILLPOSTING SUPERVISOR) Analysis Performed At Patho logist Time Signature Glucose, POCT, 133 70 - 140 09/20/2021 PCLX B mg/dL 11:07 AM BILLPOSTING SUPERVISOR Site Capillary 09/20/2021 PCLX 11:07 AM BILLPOSTING SUPERVISOR Last Intake NPO 09/20/2021 PCLX 11:07 AM BILLPOSTING SUPERVISOR Specimen Anatomical Collection Method Collection Time Receive d Time (Source) Location / / Volume Laterality Blood 09/20/2021 11:00 09/20/2021 AM BILLPOSTING SUPERVISOR 11:07 AM BILLPOSTING SUPERVISOR Unknown Provider LAB POCT ORDERABLES-MANUAL Performing Organization Address City/State/ZIP Code Phon e Number POC [facility] [address] [place] [address] [place] [address] [place] [facility]OC [address] Glucose, POCT (09/20/2021 7:54 AM BILLPOSTING SUPERVISOR) Analysis Performed At Patho logist Time Signature Glucose, POCT, 103 70 - 140 09/20/2021 PCLX B mg/dL 8:05 AM BILLPOSTING SUPERVISOR Site Capillary 09/20/2021 PCLX 8:05 AM BILLPOSTING SUPERVISOR Last Intake NPO 09/20/2021 PCLX 8:05 AM BILLPOSTING SUPERVISOR Specimen Anatomical Collection Method Collection Time Receive d Time (Source) Location / / Volume Laterality Blood 09/20/2021 7:54 AM 2 8:05 BILLPOSTING SUPERVISOR AM BILLPOSTING SUPERVISOR Unknown Provider LAB POCT ORDERABLES-MANUAL Performing Organization Address City/[facility] Phon e Number POC [facility] [address] [place] [address] [place] [address] [place] [facility]OC [address] Glucose, POCT (09/19/2021 7:55 PM BILLPOSTING SUPERVISOR) Analysis Performed At Patho logist Time Signature Glucose, POCT, 99 70 - 140 09/19/2021 PCLX B mg/dL 8:00 PM BILLPOSTING SUPERVISOR Site Capillary 09/19/2021 PCLX 8:00 PM BILLPOSTING SUPERVISOR Specimen Anatomical Collection Method Collection Time Receive d Time (Source) Location / / Volume Laterality Blood 09/19/2021 7:55 PM 2 8:00 BILLPOSTING SUPERVISOR PM BILLPOSTING SUPERVISOR Unknown Provider LAB POCT ORDERABLES-MANUAL Performing Organization Address City/[facility] Phon e Number POC [facility] [address] [place] [address] [place] [address] [place] POC [address] Glucose, POCT (09/19/2021 4:30 PM BILLPOSTING SUPERVISOR) Analysis Performed At Patho logist Time Signature Glucose, POCT, 103 70 - 140 09/19/2021 PCLX B mg/dL 4:37 PM BILLPOSTING SUPERVISOR Site Capillary 09/19/2021 PCLX 4:37 PM BILLPOSTING SUPERVISOR Last Intake NPO 09/19/2021 PCLX 4:37 PM BILLPOSTING SUPERVISOR Specimen Anatomical Collection Method Collection Time Receive d Time (Source) Location / / Volume Laterality Blood 09/19/2021 4:30 PM 4:37 BILLPOSTING SUPERVISOR PM BILLPOSTING SUPERVISOR Unknown Provider LAB POCT ORDERABLES-MANUAL Performing Organization Address City/State/ZIP Code Phon e Number POC [facility] [address] [place] [address] [place] [address] [place] POC [address] Glucose, POCT (09/19/2021 11:23 AM BILLPOSTING SUPERVISOR) Analysis Performed At Patho logist Time Signature Glucose, POCT, 125 70 - 140 09/19/2021 PCLX B mg/dL 11:29 AM BILLPOSTING SUPERVISOR Site Capillary 09/19/2021 PCLX 11:29 AM BILLPOSTING SUPERVISOR Last Intake NPO 09/19/2021 PCLX 11:29 AM BILLPOSTING SUPERVISOR Specimen Anatomical Collection Method Collection Time Receive d Time (Source) Location / / Volume Laterality Blood 09/19/2021 11:23 09/19/2021 AM BILLPOSTING SUPERVISOR 11:29 AM BILLPOSTING SUPERVISOR Unknown Provider LAB POCT ORDERABLES-MANUAL Performing Organization Address City/State/[facility] Phon e Number POC [facility] [address] [place] [address] [place] [address] [place] POC [address] (ABNORMAL) Glucose, POCT (09/19/2021 8:10 AM BILLPOSTING SUPERVISOR) Analysis Performed At [facility] logist Time Signature Glucose, POCT, 149 (H) 70 - 140 09/19/2021 PCLX B mg/dL 8:20 AM BILLPOSTING SUPERVISOR Site Capillary 09/19/2021 PCLX 8:20 AM BILLPOSTING SUPERVISOR Last Intake NPO 09/19/2021 PCLX 8:20 AM BILLPOSTING SUPERVISOR Specimen Anatomical Collection Method Collection Time Receive d Time (Source) Location / / Volume Laterality Blood 09/19/2021 8:10 AM 8:20 BILLPOSTING SUPERVISOR AM BILLPOSTING SUPERVISOR Unknown Provider LAB POCT ORDERABLES-MANUAL Performing Organization Address City/State/[facility] Code Phon e Number POC [facility] SERVICES [address] [place] [address] [place] [address] [place] POC [address] (ABNORMAL) Glucose, POCT (09/19/2021 6:09 AM BILLPOSTING SUPERVISOR) Analysis Performed At Patho logist Time Signature Glucose, POCT, 146 (H) 70 - 140 09/19/2021 PCLX B mg/dL 6:11 AM BILLPOSTING SUPERVISOR Site Capillary 09/19/2021 PCLX 6:11 AM BILLPOSTING SUPERVISOR Specimen Anatomical Collection Method Collection Time Receive d Time (Source) Location / / Volume Laterality Blood 09/19/2021 6:09 AM 6:11 BILLPOSTING SUPERVISOR AM BILLPOSTING SUPERVISOR Unknown Provider LAB POCT ORDERABLES-MANUAL Performing Organization Address City/State/ZIP Code Phon e Number POC [facility] [address] [place] [address] PCLX [facility] [place] [address] [place] POC [address] Lactate (09/19/2021 5:07 AM BILLPOSTING SUPERVISOR) athologist Signature Lactate, P 1.0 0.5 - 2.2 09/19/2021 DTL mmol/L 6:00 AM BILLPOSTING SUPERVISOR Specimen Anatomical Collection Method Collection Time Receive d Time (Source) Location / / Volume Laterality Blood (Blood, 09/19/2021 5:07 AM 09/19/19 5:47 Venous) BILLPOSTING SUPERVISOR AM BILLPOSTING SUPERVISOR Raul Neil M.D. LAB BLOOD NON ADD-ON Performing Organization Address City/[facility]/ZIP Code Phon e Number [facility] - [address] [place] [address] [facility] [place] [address] [facility] [address] (ABNORMAL) Basic Metabolic Panel (09/19/2021 5:07 AM BILLPOSTING SUPERVISOR) athologist Signature Potassium, S 4.3 3.6 - 5.2 09/19/2021 DTL mmol/L 6:04 AM BILLPOSTING SUPERVISOR Sodium, S 140 135 - 145 09/19/2021 DTL mmol/L 6:04 AM BILLPOSTING SUPERVISOR Chloride, S 104 98 - 107 09/19/2021 DTL mmol/L 6:04 AM BILLPOSTING SUPERVISOR Bicarbonate, S 25 22 - 29 09/19/2021 DTL mmol/L 6:04 AM BILLPOSTING SUPERVISOR Anion Gap 11 7 - 15 09/19/2021 DTL 6:04 AM BILLPOSTING SUPERVISOR BUN (Blood Urea 11 8 - 24 09/19/2021 DTL Nitrogen), S mg/dL 6:04 AM BILLPOSTING SUPERVISOR Creatinine 0.92 0.74 - 09/19/2021 DTL 1.35 mg/dL 6:04 AM BILLPOSTING SUPERVISOR eGFR-Non >90 >=60 09/19/2021 DTL Black/ mL/min/BSA 6:04 AM BILLPOSTING SUPERVISOR Indian Comment: ----ADDITIONAL INFORMATION---- Estimated GFR calculated using the 2009 CKD_EPI creatinine equation. eGFR-Black/ >90 >=60 mL/min/BSA 2021 6:04 AM BILLPOSTING SUPERVISOR DTL Comment: ----ADDITIONAL INFORMATION---- Estimated GFR calculated using the 2009 CKD_EPI creatinine equation. Calcium, Total, S 8.2 (L) 8.6 - 10.0 mg/dL 09/19/2021 6:04 AM BILLPOSTING SUPERVISOR DTL Glucose, S 133 70 - 140 mg/dL 09/19/2021 6:04 AM BILLPOSTING SUPERVISOR D TL Specimen Anatomical Collection Method Collection Time Receive d Time (Source) Location / / Volume Laterality Blood (Blood, 09/19/2021 5:07 AM 09/19/19 5:48 Venous) BILLPOSTING SUPERVISOR AM BILLPOSTING SUPERVISOR Raul Neil M.D. LAB BLOOD ADD-ON Performing Organization Address City/State/ZIP Code Phon e Number [facility] - [address] [place], [place] [address] [facility] [place] [address] [facility] 200 [facility] (ABNORMAL) CBC with Differential, Blood (09/19/2021 5:07 AM BILLPOSTING SUPERVISOR) [facility] gist Method Time Signature Hemoglobin 13.7 13.2 - 09/19/2021 DTL 16.6 g/dL 5:40 AM BILLPOSTING SUPERVISOR Hematocrit 41.6 38.3 - 09/19/2021 DTL 48.6 % 5:40 AM BILLPOSTING SUPERVISOR Erythrocytes 4.51 4.35 - 09/19/2021 DTL 5.65 5:40 AM BILLPOSTING SUPERVISOR x10(12)/L MCV 92.2 78.2 - 09/19/2021 DTL 97.9 fL 5:40 AM BILLPOSTING SUPERVISOR RBC Distrib Width 14.9 (H) 11.8 - 09/19/2021 DTL 14.5 % 5:40 AM BILLPOSTING SUPERVISOR Platelet Count 308 135 - 317 09/19/2021 DTL x10(9)/L 5:40 AM BILLPOSTING SUPERVISOR Leukocytes 4.2 3.4 - 9.6 09/19/2021 DTL x10(9)/L 5:40 AM BILLPOSTING SUPERVISOR Neutrophils 1.95 1.56 - 09/19/2021 DTL 6.45 5:40 AM BILLPOSTING SUPERVISOR x10(9)/L Lymphocytes 1.63 0.95 - 09/19/2021 DTL 3.07 5:40 AM BILLPOSTING SUPERVISOR x10(9)/L Monocytes 0.32 0.26 - 09/19/2021 DTL 0.81 5:40 AM BILLPOSTING SUPERVISOR x10(9)/L Eosinophils 0.31 0.03 - 09/19/2021 DTL 0.48 5:40 AM BILLPOSTING SUPERVISOR x10(9)/L Basophils <0.03 0.01 - 09/19/2021 DTL 0.08 5:40 AM BILLPOSTING SUPERVISOR x10(9)/L Specimen Anatomical Collection Method Collection Time Receive d Time (Source) Location / / Volume Laterality Blood (Blood, 09/19/2021 5:07 AM 09/19/19 5:31 Venous) BILLPOSTING SUPERVISOR AM BILLPOSTING SUPERVISOR Raul Neil M.D. LAB BLOOD ADD-ON Performing Organization Address City/[facility] Phon e Number [facility] - [address] [place] [address] [facility] [place] [address] [facility] [address] Glucose, POCT (09/18/2021 9:46 PM BILLPOSTING SUPERVISOR) Analysis Performed At Patho logist Time Signature Glucose, POCT, 127 70 - 140 09/18/2021 PCLX B mg/dL 11:27 PM BILLPOSTING SUPERVISOR Last Intake 3-4 hours 09/18/2021 PCLX 11:27 PM BILLPOSTING SUPERVISOR Specimen Anatomical Collection Method Collection Time Receive d Time (Source) Location / / Volume Laterality Blood 09/18/2021 9:46 PM BILLPOSTING SUPERVISOR 11:28 PM BILLPOSTING SUPERVISOR Unknown Provider LAB POCT ORDERABLES-MANUAL Performing Organization Address City/State/[facility] Phon e Number POC [facility] [address] [place] [address] [place] [address] [facility] [address] Glucose, POCT (09/18/2021 5:28 PM BILLPOSTING SUPERVISOR) Analysis Performed At Patho logist Time Signature Glucose, POCT, 107 70 - 140 09/18/2021 PCLX B mg/dL 5:31 PM BILLPOSTING SUPERVISOR Site Capillary 09/18/2021 PCLX 5:31 PM BILLPOSTING SUPERVISOR Specimen Anatomical Collection Method Collection Time Receive d Time (Source) Location / / Volume Laterality Blood 09/18/2021 5:28 PM 5:31 BILLPOSTING SUPERVISOR PM BILLPOSTING SUPERVISOR Unknown Provider LAB POCT ORDERABLES-MANUAL Performing Organization Address City/State/ZIP Code Phon e Number POC [facility] [address] [place] [address] PCLX [facility] [place] [address] [place] POC [address] DX Abdomen Portable Anterior Posterior 1 View (09/18/2021 3:41 PM BILLPOSTING SUPERVISOR) Anatomical Region Laterality Modality Abdomen, Abdominal RST LOS, Abdominal ARZ LOS, N/A Digital Radiography Abdominal FLA LOS Specimen (Source) Anatomical Collection Method Collection Time Re ceived Time Location / / Volume Laterality 09/18/2021 4:50 PM BILLPOSTING SUPERVISOR Impressions 09/18/2021 4:51 PM BILLPOSTING SUPERVISOR Scattered small bowel and colonic gas in a nonobstructive pattern. Since 09/06/2021 the NG tube has been removed. Linear atelect asis left lung base. Narrative 09/18/2021 4:51 PM BILLPOSTING SUPERVISOR EXAM: ??DX ABDOMEN PORTABLE ANTERIOR POSTERIOR 1 VIEW Procedure Note Otf Adler M.D. - 09/18/2021Format ting of this note might be different from the original. EXAM: DX ABDOMEN PORTABLE ANTERIOR POSTE RIOR 1 VIEW IMPRESSION: Scattered small bowel and colonic gas in a nonobstructive pattern. Since 09/06/2021 the NG tube has been removed. Linear atelect asis left lung base. Raul MCGOVERN DIAGNOSTIC IMAGING PROCE DURES SARS Coronavirus 2, RNA, Rapid POC, V Asymptomatic (09/18/2021 3:17 PM BILLPOSTING SUPERVISOR) Patholo gist Method Time Signature SARS Undetected Undetected 09/18/2021 DTLR Coronavirus-2 3:37 PM BILLPOSTING SUPERVISOR , RNA, Rapid POC, V Comment: Negative for SARS-CoV-2. The Cue COVID-19 test is a molecular loly t for SARS-CoV-2, the virus that causes COVID- 19. A Negative result means that the MEDOVENT COV ID-19 test did not detect SARS-CoV-2 virus in your sample. MEDOVENT COVID-19 test uses the [employer] nitoring System. This test has received Emergency Use Authorization (EUA) by the U.S. Food and Drug Administration (FDA) and is used per man ufacturer instructions. Performance characteristic s were verified by [facility] in a manner consistent with CLIA requirements. Fact sheets for this Emerg ency Use Authorization (EUA) can be found at the following links: Providers: [email or web address]/[email or web address].pdf Patients: [email or web address]/sulema [email or web address].pdf SARS Coronavirus 2, Source Nasopharynx DEFAULT 09/18/2021 3:37 PM BILLPOSTING SUPERVISOR DTLR Specimen Anatomical Collection Method Collection Time Receive d Time (Source) Location / / Volume Laterality Varies 09/18/2021 3:17 PM 3:17 (Nasopharynx) BILLPOSTING SUPERVISOR PM BILLPOSTING SUPERVISOR El Andrew M.D. LAB MICROBIOLOGY - GENERAL O RDERABLES Performing Organization Address City/State/ZIP Code Phon e Number PERFORMING LABS, REF [place] [address] INTERFACE Ref Interface [address] [place] Performing Labs, [place] [address] Lactate (09/18/2021 3:12 PM BILLPOSTING SUPERVISOR) athologist Signature Lactate, P 1.3 0.5 - 2.2 09/18/2021 DTL mmol/L 4:16 PM BILLPOSTING SUPERVISOR Specimen Anatomical Collection Method Collection Time Receive d Time (Source) Location / / Volume Laterality Blood (Blood, 09/18/2021 3:12 PM 09/18/19 3:58 Venous) BILLPOSTING SUPERVISOR PM BILLPOSTING SUPERVISOR Raul Neil M.D. LAB BLOOD NON ADD-ON Performing Organization Address City/State/[facility] Code Phon e Number [facility] - [address] [place], [place] [address] [facility] [place] [address] [facility] [address] (ABNORMAL) CBC with Differential, Blood (09/18/2021 3:12 PM BILLPOSTING SUPERVISOR) [facility] gist Method Time Signature Hemoglobin 14.8 13.2 - 09/18/2021 DTL 16.6 g/dL 3:43 PM BILLPOSTING SUPERVISOR Hematocrit 45.2 38.3 - 09/18/2021 DTL 48.6 % 3:43 PM BILLPOSTING SUPERVISOR Erythrocytes 4.90 4.35 - 09/18/2021 DTL 5.65 3:43 PM BILLPOSTING SUPERVISOR x10(12)/L MCV 92.2 78.2 - 09/18/2021 DTL 97.9 fL 3:43 PM BILLPOSTING SUPERVISOR RBC Distrib Width 14.8 (H) 11.8 - 09/18/2021 DTL 14.5 % 3:43 PM BILLPOSTING SUPERVISOR Platelet Count 364 (H) 135 - 317 09/18/2021 DTL x10(9)/L 3:43 PM BILLPOSTING SUPERVISOR Leukocytes 6.9 3.4 - 9.6 09/18/2021 DTL x10(9)/L 3:43 PM BILLPOSTING SUPERVISOR Neutrophils 3.83 1.56 - 09/18/2021 DTL 6.45 3:43 PM BILLPOSTING SUPERVISOR x10(9)/L Lymphocytes 2.12 0.95 - 09/18/2021 DTL 3.07 3:43 PM BILLPOSTING SUPERVISOR x10(9)/L Monocytes 0.59 0.26 - 09/18/2021 DTL 0.81 3:43 PM BILLPOSTING SUPERVISOR x10(9)/L Eosinophils 0.32 0.03 - 09/18/2021 DTL 0.48 3:43 PM BILLPOSTING SUPERVISOR x10(9)/L Basophils <0.03 0.01 - 09/18/2021 DTL 0.08 3:43 PM BILLPOSTING SUPERVISOR x10(9)/L Specimen Anatomical Collection Method Collection Time Receive d Time (Source) Location / / Volume Laterality Blood (Blood, 09/18/2021 3:12 PM 09/18/19 3:36 Venous) BILLPOSTING SUPERVISOR PM BILLPOSTING SUPERVISOR Raul Neil M.D. LAB BLOOD ADD-ON Performing Organization Address City/State/ZIP Code Phon e Number [facility] - [address] [place], [place] [address] [facility] [place] [address] [facility] [address] Basic Metabolic Panel (09/18/2021 3:12 PM BILLPOSTING SUPERVISOR) P athologist Signature Potassium, S 4.6 3.6 - 5.2 09/18/2021 DTL mmol/L 4:23 PM BILLPOSTING SUPERVISOR Sodium, S 141 135 - 145 09/18/2021 DTL mmol/L 4:23 PM BILLPOSTING SUPERVISOR Chloride, S 104 98 - 107 09/18/2021 DTL mmol/L 4:23 PM BILLPOSTING SUPERVISOR Bicarbonate, S 24 22 - 29 09/18/2021 DTL mmol/L 4:23 PM BILLPOSTING SUPERVISOR Anion Gap 13 7 - 15 09/18/2021 DTL 4:23 PM BILLPOSTING SUPERVISOR BUN (Blood Urea 13 8 - 24 09/18/2021 DTL Nitrogen), S mg/dL 4:23 PM BILLPOSTING SUPERVISOR Creatinine 1.04 0.74 - 09/18/2021 DTL 1.35 mg/dL 4:23 PM BILLPOSTING SUPERVISOR eGFR-Non 86 >=60 09/18/2021 DTL Black/ mL/min/BSA 4:23 PM BILLPOSTING SUPERVISOR Indian Comment: ----ADDITIONAL INFORMATION---- Estimated GFR calculated using the 2009 CKD_EPI creatinine equation. eGFR-Black/ >90 >=60 mL/min/BSA 2021 4:23 PM BILLPOSTING SUPERVISOR DTL Comment: ----ADDITIONAL INFORMATION---- Estimated GFR calculated using the 2009 CKD_EPI creatinine equation. Calcium, Total, S 8.9 8.6 - 10.0 mg/dL 09/18/2021 4:23 PM BILLPOSTING SUPERVISOR DTL Glucose, S 124 70 - 140 mg/dL 09/18/2021 4:23 PM BILLPOSTING SUPERVISOR D TL Specimen Anatomical Collection Method Collection Time Receive d Time (Source) Location / / Volume Laterality Blood (Blood, 09/18/2021 3:12 PM 09/18/19 3:58 Venous) BILLPOSTING SUPERVISOR PM BILLPOSTING SUPERVISOR Raul Neil M.D. LAB BLOOD ADD-ON Performing Organization Address City/State/ZIP Code Phon e Number [facility] - [address] [place], [place] [address] [facility] [place] [address] [facility] [address] Interpretation of Outside CT Abdomen and or Pelvis (09/18/2021 3:02 PM BILLPOSTING SUPERVISOR) Anatomical Region Laterality Modality Abdomen, Pelvis, Abdominal RST LOS, Abdominal ARZ LOS, N/A Computed Tomography Abdominal FLA LOS, Other Specimen (Source) Anatomical Collection Method Collection Time Re ceived Time Location / / Volume Laterality 09/18/2021 3:19 PM BILLPOSTING SUPERVISOR Impressions 09/18/2021 3:37 PM BILLPOSTING SUPERVISOR Small bowel dilatation, could represent partial obstruction. Could consider small bowel series for evaluation of NSAID enteropat hy. Narrative 09/18/2021 3:37 PM BILLPOSTING SUPERVISOR EXAM: ??INTERPRETATION OF OUTSIDE CT ABDOMEN AND OR PELVIS COMPARISON: 09/10/2021, 09/06/2021 FINDINGS: ??Interpretation of outside CT the abdomen and pelvis with intravenous contrast 09/18/2021 Mild dilatation of the mid and distal sm all bowel, and new since 09/10/2021, and decreased compared to 09/06/2021. There are a few areas of circumferential mural thickening with distended bowel both proximally and distally (for example ser ies 5 image 82, series 2 image 110); in the appropriate context, this could represent NSAID-rela sharlene diaphragms. The small bowel resumes normal caliber the level of the distal ileum, without discr ete obstructing lesion. Slight increase in inflammatory mesenteric lymph nodes in the right abdo men. Calcified hepatic and splenic granulomas . Calcified douglas hepatis lymph node. Vasectomy clips. Small amount of excreted contrast material wit hin the urinary collecting system. ??Calcified granulomas in the right middle lobe of the lung with c alcified right hilar and mediastinal lymph nodes. Procedure Note Danial Cantu M.D. - 09/18/2021Forma tting of this note might be different from the original. EXAM: INTERPRETATION OF OUTSIDE CT ABDOM EN AND OR PELVIS COMPARISON: 09/10/2021, 09/06/2021 FINDINGS: Interpretation of outside CT t he abdomen and pelvis with intravenous contrast 09/18/2021 Mild dilatation of the mid and distal sm all bowel, and new since 09/10/2021, and decreased compared to 09/06/2021. There are a few areas of circumferential mural thickening with distended bowel both proximally and distally (for example ser ies 5 image 82, series 2 image 110); in the appropriate context, this could represent NSAID-rela sharlene diaphragms. The small bowel resumes normal caliber the level of the distal ileum, without discr ete obstructing lesion. Slight increase in inflammatory mesenteric lymph nodes in the right abdo men. Calcified hepatic and splenic granulomas . Calcified douglas hepatis lymph node. Vasectomy clips. Small amount of excreted contrast material wit hin the urinary collecting system. Calcified granulomas in the right middle lobe of the lung with c alcified right hilar and mediastinal lymph nodes. IMPRESSION: Small bowel dilatation, could represent partial obstruction. Could consider small bowel series for evaluation of NSAID enteropat hy. Raul MCGOVERN CT PROCEDURES documented in this encounter Visit Diagnoses Diagnosis Small Bowel Stricture Personal History - Primary documented in this encounter Admitting Diagnoses Diagnosis Small Bowel Stricture Personal History documented in this encounter Administered Medications Inactive Administered Medications - up to 3 most recent administrations Medication Order MAR Action Action Date Dose Rate Site acetaminophen tablet 500 mg Given 09/20/2021 8:10 PM BILLPOSTING SUPERVISOR 500 mg (TYLENOL) 500 mg, oral, Every 4 hours PRN, headaches, Starting on 09/19/21 at 1704 Given 09/20/2021 4:22 AM BILLPOSTING SUPERVISOR 500 mg Given 09/19/2021 5:51 PM BILLPOSTING SUPERVISOR 500 mg aspirin chewable tablet 81 mg Given 09/21/2021 9:21 AM BILLPOSTING SUPERVISOR 81 mg 81 mg, oral, Daily, First dose on 09/19/21 at 0900 barium 60 % (w/v) suspension (LIQUID Given 09/20/2021 3:18 PM 71 0 mL Mouth E-Z-PAQUE) BILLPOSTING SUPERVISOR Code/trauma/sedation medication, Starting on 09/20/21 at 1518 buPROPion 12 hr tablet 100 mg (WELLBUTRI N SR) Given 09/21/2021 9:21 AM BILLPOSTING SUPERVISOR 100 mg 100 mg, oral, Daily, First dose on 09/19/21 at 0900, Swallow whole. Do NOT crush, chew, or split tablet. enoxaparin injection 40 mg Given 09/21/2021 9:21 AM BILLPOSTING SUPERVISOR 40 mg Left Upper Arm (LOVENOX) (Back) 40 mg, subcutaneous, Every 24 hours scheduled, First dose on 09/18/21 at 1500 Given 09/19/2021 8:07 AM BILLPOSTING SUPERVISOR 40 mg Right Lower Abdomen Given 09/18/2021 4:08 PM BILLPOSTING SUPERVISOR 40 mg Right Lower Abdomen gemfibroziL tablet 600 mg (LOPID) Given 09/21/2021 6:32 AM BILLPOSTING SUPERVISOR 600 mg 600 mg, oral, 2 times daily before breakfast and dinner, First dose on Mon09/18/21 at 1600 HYDROmorphone (PF) injection 0.2 mg Given 09/18/2021 4:03 PM BILLPOSTING SUPERVISOR 0.2 mg (DILAUDID) 0.2 mg, intravenous, Every 2 hour PRN, moderate pain or score 4-6 of 10, Starting on Mon09/18/21 at 1447 HYDROmorphone (PF) injection 0.2 mg Given 09/21/2021 9:18 AM BILLPOSTING SUPERVISOR 0.2 mg (DILAUDID) 0.2 mg, intravenous, Every 4 hours PRN, moderate pain or score 4-6 of 10, Starting on Mon09/18/21 at 1659 Given 09/21/2021 4:26 AM BILLPOSTING SUPERVISOR 0.2 mg Given 09/20/2021 8:19 PM BILLPOSTING SUPERVISOR 0.2 mg HYDROmorphone (PF) injection 0.2 mg (DIL AUDID) 0.2 mg, intravenous, Every 4 hours PRN, moderate pain or score 4-6 of 10, Starting on Mon09/21/21 at 1127 HYDROmorphone tablet 1 mg (DILAUDID) 1 mg, oral, Every 4 hours PRN, moderate pain or score 4-6 of 10, Starting on Mon09/21/21 at 0913 insulin aspart U-100 Given 09/19/2021 8:13 AM BILLPOSTING SUPERVISOR 2 Units Left Lower Abdomen injection 0-13 Units (NovoLOG FlexPen) 0-13 Units, subcutaneous, 3 times daily, First dose on Mon09/18/21 at 1700, Insulin Scale: Moderate Correction Scale, 140 - 179: 2 units, 180 - 219: 4 units, 220 - 259: 6 units, 260 - 299: 8 units, 300 - 339: 10 units, 340 - 379: 12 units, 380 - 399: 13 units, Greater than 399: Call service writing Insulin orders lactated ringers New Bag 09/19/2021 12:22 AM BILLPOSTING SUPERVISOR 125 mL/hr 125 mL/hr 125 mL/hr, intravenous, Continuous, Starting on Mon09/18/21 at 1500, For 12 hours New Bag 09/18/2021 4:07 PM BILLPOSTING SUPERVISOR 125 mL/hr 125 mL/hr lactated ringers New Bag 09/19/2021 4:33 PM BILLPOSTING SUPERVISOR 125 mL/hr 125 mL/hr 125 mL/hr, intravenous, Continuous, Starting on 09/19/21 at 0630, For 12 hours New Bag 09/19/2021 8:22 AM BILLPOSTING SUPERVISOR 125 mL/hr 125 mL/hr New Bag 09/19/2021 6:35 AM BILLPOSTING SUPERVISOR 125 mL/hr 125 mL/hr LORazepam tablet 0.5 mg (ATIVAN) Given 09/20/2021 2:23 AM BILLPOSTING SUPERVISOR 0.5 mg 0.5 mg, oral, Bedtime PRN, sleep, Starting on 09/18/21 at 1442 melatonin tablet 3 mg Given 09/19/2021 11:44 PM BILLPOSTING SUPERVISOR 3 mg 3 mg, oral, Bedtime PRN, sleep, Starting on 09/18/21 at 1536 metoprolol succinate 24 hr tablet 25 mg Given 09/21/2021 9:21 AM BILLPOSTING SUPERVISOR 25 mg (TOPROL-XL) 25 mg, oral, 2 times daily, First dose on 09/18/21 at 2100, Do NOT crush or chew. Tablet may be split on score if needed. Given 09/20/2021 8:10 PM BILLPOSTING SUPERVISOR 25 mg ondansetron ODT disintegrating tablet 4 mg Given 09/20/2021 4:16 PM BILLPOSTING SUPERVISOR 4 mg (ZOFRAN-ODT) 4 mg, oral, Every 6 hours PRN, nausea, vomiting, Starting on 09/18/21 at 1449, When splitting ODT at bedside, handle with gloves and a pill splitter to prevent moisture contact. Given 09/18/2021 7:41 PM BILLPOSTING SUPERVISOR [address] tablet 20 mg (PROTONIX) Given 09/21/2021 6:32 AM BILLPOSTING SUPERVISOR 20 mg 20 mg, oral, Daily before breakfast, First dose on 09/19/21 at 1100, Swallow whole. Do NOT crush, chew, or split tablet. Given 09/20/2021 7:53 AM BILLPOSTING SUPERVISOR 20 mg Given 09/19/2021 11:21 AM BILLPOSTING SUPERVISOR 20 mg pregabalin capsule 100 mg (LYRICA) Given 09/21/2021 9:21 AM BILLPOSTING SUPERVISOR 100 mg 100 mg, oral, 2 times daily, First dose on 09/18/21 at 2100 Given 09/20/2021 8:10 PM BILLPOSTING SUPERVISOR 100 mg documented in this encounter Active and Recently Administered Medications Times are shown in BILLPOSTING SUPERVISOR. Scheduled Medication Order 09/19/2021 09/20/2021 09/21/2021 aspirin chewable tablet 81 mg 0900 (Not Given - Provid er: Brittany Romero R.N. - Reason: See Provider Order) 0900 (Not Given - Provider: Suri waddell R.N. - Reason: See Provider Order)163 (Unheld by provider - Provider: Silvino Belle M.D.) 0921 (Given - Provider: Chauncey Galvan R.N.) 81 mg, oral, Daily, First dose on 09/19/21 at 0900 atorvastatin tablet 20 mg (LIPITOR) 0900 (Not Given - Provider: Brittany Romero R.N. - Reason: See Provider Order) 09 (Not Given - Provider: Suri waddell R.N. - Reason: See Provider Order) 0900 (Dose Auto Held)2040 (Unheld by pro vider - Provider: Discharge Provider, Automatic) 20 mg, oral, Daily, First dose on 09/19/21 at 0900 buPROPion 12 hr tablet 100 mg (WELLBUTRIN SR) 0900 (No t Given - Provider: Brittany Romero R.N. - Reason: See Provider Order) 0900 (Not Given - Provider: Suri Oscar R.N. - Reason: See Provider Order)163 (Unheld by provider - Provider: Silvino Belle M.D.) 0921 (Given - Provider: Chauncey Galvan R.N.) 100 mg, oral, Daily, First dose on Sun at 0900, Swallow whole. Do NOT crush, chew, or split tablet. enoxaparin injection 40 mg (LOVENOX) 0807 (Given - Pro vider: Brittany Romero R.N.) 0806 (Not Given - Provider: Suri waddell R.N. - Reason: Other - Comment: provider (via secure chat) instructed to hold d/t possible procedure today) 0921 (Given - Provider: Chauncey Galvan R.N.) 40 mg, subcutaneous, Every 24 hours sche duled, First dose on 09/18/21 at 1500 gemfibroziL tablet 600 mg (LOPID) 0700 (Not Given - Pr ovider: Blake Diaz R.N. - Reason: See Provider Order - Comment: held per md)1600 (Not Given - Provider: Brittany Romero R.N. - Reason: See Provider Order) 0700 (Not Given - Provider: Fritz Larson R.N. - Reason: See Provider Order)1600 (Not Given - Provider: Suri Oscar R.N. - Reason: See Provider Order)1639 (Unheld by provider - Provider: Silvino Belle M.D.) 0632 (Given - Provider: Kayleen Hammonds R.N.)1600 (Due - Provider: Silvino Belle M.D.) 600 mg, oral, 2 times daily before break fast and dinner, First dose on 09/18/21 at 1600 insulin aspart U-100 injection 0-13 Units (NovoLOG Fle xPen) (CANCELED) 0813 (Given - Provider: Brittany Romero R.N. - Comment: verified with second RN)1131 (Not Given - Provider: Brittany Romero R.N. - Reason: Order parameters not met)1633 (Not Given - Provider: Brittany Romero R.N. - Reason: Order parameters not met) 0755 (Not Given - Provider: Sol DillonNDerik - Reason: Order parameters not met - Comment: BG 103)1102 (Not Given - Provider: Suri Oscar R.N. - Reason: Order parameters not met - Comment: BG 133) 0-13 Units, subcutaneous, 3 times daily, First dose on 09/18/21 at 1700, Insulin Scale: Moderate Correction Scale, 140 - 179: 2 units, 180 - 219: 4 units, 220 - 259: 6 units, 260 - 299: 8 units, 300 184 8 (Not Given - Provider: Suri Oscar R.N. - Reason: Order parameters not met - Comment: BG 89) - 339: 10 units, 340 - 379: 12 units, 38 0 - 399: 13 units, Greater than 399: Call service writing Insulin orders metoprolol succinate 24 hr tablet 25 mg (TOPROL-XL) 09 00 (Not Given - Provider: Brittany M Blegen, R.N. - Reason: See Provider Order)2100 (Not Given - Provider: Blake Diaz R.N. - Reason: See Provider Order) 0900 (Not Given - Provider: Suri Oscar R.N. - Reason: See Provider Order)1639 (Unheld by provider - Provider: Silvino Belle M.D.)2009 (Given - Provider: Suri Oscar R.N.) 0921 (Given - Provider: Chauncey Galvan R.N.) 25 mg, oral, 2 times daily, First dose o n 09/18/21 at 2100, Do NOT crush or chew. Tablet may be split on score if needed. pantoprazole DR tablet 20 mg (PROTONIX) 1121 (Given - Provider: Brittany Romero R.N.) 0753 (Given - Provider: Suri Oscar R.N.) 0632 ( Given - Provider: Kayleen Hammonds R.N.) 20 mg, oral, Daily before breakfast, Fir st dose on 09/19/21 at 1100, Swallow whole. Do NOT crush, chew, or split tablet. pantoprazole DR tablet 40 mg (PROTONIX) 0700 (Not Give n - Provider: Blake Diaz R.N. - Reason: See Provider Order - Comment: held per ) 0700 (Not Given - Provider: Fritz Larson R.N. - Reason: See Provider Order) 0700 (Not Given - Provider: Kayleen Hammonds R.N. - Reason: See Provider Order)2040 (Unheld by provider - Provider: Discharge Provider, Automatic) 40 mg, oral, Daily before breakfast, Fir st dose on 09/19/21 at 0700, pantoprazole 40 mg oral daily was interchanged for omeprazole 20 or 40 mg oral daily Swallow whole. Do NOT crush, chew, or split tablet. pregabalin capsule 100 mg (LYRICA) 0900 (Not Given - P woodyder: Brittany Romero R.N. - Reason: See Provider Order)2100 (Not Given - Provider: Blake Diaz R.N. - Reason: See Provider Order) 0900 (Not Given - Provider: Suri waddell R.N. - Reason: See Provider Order)1639 (Unheld by provider - Provider: Silvino Belle M.D.)2009 (Given - Provider: Suri Oscar R.N.) 0921 (Given - Provider: Chauncey Galvan R.N.) 100 mg, oral, 2 times daily, First dose on 09/18/21 at 2100 Continuous Medication Order 09/19/2021 09/20/2021 09/21/2021 lactated ringers () 0022 (New Bag - Provider: Blake escalante R.N.) 125 mL/hr, intravenous, Continuous, Star ting on 09/18/21 at 1500, For 12 hours lactated ringers () 0635 (New Bag - Provider: Татьяна Diaz R.N.)0822 (New Bag - Provider: Brittany Romero R.N.)1633 (New Bag - Provider: Brittany Romero R.N.)1823 (Stopped - Provider: Brittany Romero R.N.) 125 mL/hr, intravenous, Continuous, Star ting on 09/19/21 at 0630, For 12 hours PRN Medication Order 09/19/2021 09/20/2021 09/21/2021 acetaminophen tablet 500 mg (TYLENOL) 1751 (Given - Pr ovider: Brittany Romero R.N.) 0422 (Given - Provider: Justa Gates R.N.)20 10 (Given - Provider: Suri Oscar R.N.) 500 mg, oral, Every 4 hours PRN, headaches, Starting on Sun 09/19 at 1704 barium 60 % (w/v) suspension (LIQUID E-Z-PAQUE) (COMPLETED) 1518 (Given - Provider: George Campuzano M.D.) Code/trauma/sedation medication, Starting on 09/20/21 at 1518 bisacodyL suppository 10 mg (DULCOLAX) 10 mg, rectal, Daily PRN, constipation, Starting on 09/18/21 at 1445, Ordered sequence of administration: polyethylene glycol, then bisacodyl until BM achieved. HYDROmorphone (PF) injection 0.2 mg (DILAUDID) (CANCEL ED) 0806 (Given - Provider: Brittany Romero R.N.)1201 (Given - Provider: Brittany Romero R.N.)1626 (Given - Provider: Brittany Romero R.N.)2118 (Given - Provider: Blake Diaz R.N.) 0128 (Given - Provider: Blake Diaz R.N.)0537 (Given - Provider: Fritz Larson R.N.)1057 (Given - Provider: Suri Oscar R.N.)1610 (Given - Provider: Suri Oscar R.N.)2019 (Given - Provider: Suri Oscar R.N.) 0426 (Given - Provider: Kayleen Hammonds R.N.)0918 (Given - Provider: Chauncey Galvan R.N.) 0.2 mg, intravenous, Every 4 hours PRN, moderate pain or score 4-6 of 10, Starting on 09/18/21 at 1659 HYDROmorphone (PF) injection 0.2 mg (DILAUDID) 0.2 mg, intravenous, Every 4 hours PRN, moderate pain or score 4-6 of 10, Starting on Mon09/21/21 at 1127 HYDROmorphone tablet 1 mg (DILAUDID) 1 mg, oral, Every 4 hours PRN, moderate pain or score 4-6 of 10, Starting on Mon09/21/21 at 0913 LORazepam tablet 0.5 mg (ATIVAN) 0217 (U nheld by provider - Provider: Nikos Mujica M.D.)0223 (Given - Provider: Fritz Larson R.N.) 0.5 mg, oral, Bedtime PRN, sleep, Starting on 09/18/21 at 144 2 melatonin tablet 3 mg 2344 (Given - Provider: Sol Alfaro) 3 mg, oral, Bedtime PRN, sleep, Starting on 09/18/21 at 1536 ondansetron ODT disintegrating tablet 4 mg (ZOFRAN-ODT) 1616 (Given - Provider: Suri Oscar R.N.) 4 mg, oral, Every 6 hours PRN, nausea, v omiting, Starting on 09/18/21 at 1449, When splitting ODT at bedside, handle with gloves and a pill splitter to prevent moisture contact. polyethylene glycol powder packet 17 g (MIRALAX) 17 g, oral, Daily PRN, constipation, Sta rting on 09/18/21 at 1445, Ordered sequence of administration: polyethylene glycol, then bisacodyl until BM achieved. Avoid mixing with starch-based thickened liquids. documented in this encounter Additional Health Concerns Infection Onset Date Last Indicated Resolved Time COVID19 Pending 09/18/2021 09/18/2021 09/18/2021 3:37 PM BILLPOSTING SUPERVISOR documented as of this encounter Care Teams Fishing Captain Relationship Specialty Start Date End Date Elsewhere, Pcp PCP - General Internal Medicine 09/18/21 documented as of this encounter
--- OUTSIDE RECORDS SUMMARY | 2022-04-25 11:10 | XMS_ITS | Encounter Summary ---
:1975 Author Organization [facility] Address [address] [place] [address] Care Team Providers Name Role Phone Unavailable Primary Care Provider Unavailable Encounter Details Date Type Department Care Team Description 09/13/2021 Ancillary Procedure Department of Gastroenterology Social History [...] or relatives? How often do you attend mandaen or More than 4 times per year 09/15/2021 episcopal services? Do you belong to any clubs or Yes 09/15/2021 organizations such as mandaen groups, unions, fraternal or athletic groups, or [...] or slept in a alf (including now)? Sex Assigned at Date Recorded Male 09/15/2021 9:14 AM DOUBLE BASS PLAYER documented as of this encounter Plan of Treatment Not on filedocumented as of this encounter Procedures Procedure Name Priority Date/Time Associated Comments Diagnosis GASTROENTEROLOGY IMAGE Routine 09/13/2021 8:50 Re sults for this EXAM AM DOUBLE BASS PLAYER procedure are i n the results section. documented in this encounter Results Colonoscopy-Gastroenterology Image Exam (09/13/2021 8:50 AM DOUBLE BASS PLAYER) Specimen (Source) Anatomical Collection Method Collection Time Re ceived Time Location / / Volume Laterality 09/13/2021 8:46 AM DOUBLE BASS PLAYER Narrative [facility]S - 09/13/2021 9:48 AM DOUBLE BASS PLAYER This order has been created and auto-finalized [...]
--- OUTSIDE RECORDS SUMMARY | 2022-04-25 11:10 | XMS_ITS | Encounter Summary ---
:1975 [address] [facility] Address [address] [place] [id number] Care Team Providers Name Role Phone Unavailable Primary Care Provider Unavailable Reason for Referral Outpatient (Routine) - Closed Specialty Diagnoses / Procedures Referred By Contact Refer red To Contact Diagnoses Obstruction Intestinal (HCC) Ynes Nguyen M.D. [facility] Procedures Colonoscopy [address] [place] [address] Referral ID Status Reason Start Date Expiration Date Visits Requ ested Visits Authorized [id number] Closed 09/07/2021 09/07/2022 1 1 RAL WAREHOUSE ASSOCIATE MRI/CAT/PET Scan (Routine) - Closed Specialty Diagnoses / Procedures Referred By Contact Refer red To Contact Radiology Diagnoses Obstruction Intestinal (HCC) Ynes Nguyen M.D. [facility] Procedures CT Abdomen Pelvis Enterography with IV Contrast [address] [place] [phone] Referral ID Status Reason Start Date Expiration Date Visits Requ ested Visits Authorized [id number] Closed 09/07/2021 09/07/2022 1 1 RAL WAREHOUSE ASSOCIATE Encounter Details Date Type Department Care Team Description 09/07/2021 Clinical Communication Division of [facility] in Ynes Tejeda M.D. [place], [place] [address] [facility] [address] [place] [phone] Social History Tobacco Use Types Packs/Day Years [...] or relatives? How often do you attend orthodoxy or More than 4 times per year 09/15/2021 worship services? Do you belong to any clubs or Yes 09/15/2021 organizations such as orthodoxy groups, unions, fraternal or athletic groups, or [...] place to sleep or slept in a fdc (including now)? Sex Assigned at Date Recorded Male 09/15/2021 9:14 AM GENERAL WAREHOUSE ASSOCIATE documented as of this encounter Plan of Treatment Not on filedocumented as of this encounter Results CT Abdomen Pelvis Enterography with IV Contrast (09/10/2021 12:36 PM GENERAL WAREHOUSE ASSOCIATE) Anatomical Region Laterality Modality Abdomen, Pelvis, Abdominal RST LOS, N/A Comp uted Tomography, Computed Abdominal ARZ LOS, Abdominal FLA LOS Lakhwinder ography Specimen (Source) Anatomical Collection Method Collection Time Re ceived Time Location / / Volume Laterality 09/10/2021 12:35 PM GENERAL WAREHOUSE ASSOCIATE Impressions 09/10/2021 1:22 PM GENERAL WAREHOUSE ASSOCIATE 1. Interval resolution of small bowel obstruction. 2. No convincing evidence of Crohn's dis ease involving the small bowel. 3. Given the history of NSAID use and fi ndings on the comparison study suggesting the possibility of obstructing diaphragms, small bowel seri es could be performed for further evaluation. Narrative 09/10/2021 1:22 PM GENERAL WAREHOUSE ASSOCIATE EXAM: ??CT ABDOMEN PELVIS ENTEROGRAPHY WITH IV [...] could be performed for further evaluation. Ynes Nguyen M.D. [facility] PROCEDURES documented in this encounter Visit Diagnoses Diagnosis Obstruction Intestinal (HCC) Obstruction Intestinal (HCC) documented in this encounter
--- OUTSIDE RECORDS SUMMARY | 2022-04-25 11:10 | XMS_ITS | Encounter Summary ---
:1975 Author Organization [facility] Address [address] [place] [address] Care Team Providers Name Role Phone Unavailable Primary Care Provider Unavailable Encounter Details Date Type Department Care Team Description 03/09/2021 Orders Only [facility] PCP [facility] Sa chico Gurrola M.D. [address] [place], [place] [phone] (Wo rk) Social History Tobacco Use Types [...] or relatives? How often do you attend confucianist or More than 4 times per year 09/15/2021 jewish services? Do you belong to any clubs or Yes 09/15/2021 organizations such as confucianist groups, unions, fraternal or athletic groups, or [...] place to sleep or slept in a detention (including now)? 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
--- OUTSIDE RECORDS SUMMARY | 2022-04-25 11:10 | XMS_ITS | Encounter Summary ---
:1975 Author Organization [facility] Address [address] [place] [address] Care Team Providers Name Role Phone Elsewhere, Pcp Primary Care Provider Unavailable Encounter Details Date Type Department Care Team Description 09/18/2021 Ancillary Procedure Department of Radiology John Neil in [facility] tsering [place] [address] [facility] [address] [place] [phone] (Wo rk) Social History Tobacco Use Types [...] More than 4 times per year 09/15/2021 caodaism services? Do you belong to any clubs [...] highest level of school Associate degree: codey sanketmelody, 09/15/2021 you have completed or the highest technical, or vocational p nickram degree you have received? Sex Assigned at Date Recorded Male 09/15/2021 9:14 AM RN STARS documented as of this encounter Plan of Treatment Not on filedocumented as of this encounter Procedures Procedure Name Priority Date/Time Associated Comments Diagnosis INTERPRETATION OF RAD - Routine 09/18/2021 3:02 Result s for OUTSIDE CT ABDOMEN (most inpatients PM RN STARS this procedure AND OR PELVIS and all are in the outpatients) results section. documented in this encounter Results Interpretation of Outside CT Abdomen and or Pelvis (09/18/2021 3:02 PM RN STARS) Anatomical Region Laterality Modality Abdomen, Pelvis, Abdominal RST LOS, Abdominal ARZ LOS, N/A Computed Tomography Abdominal FLA LOS, Other Specimen (Source) Anatomical Collection Method Collection Time Re ceived Time Location / / Volume Laterality 09/18/2021 3:19 PM RN STARS Impressions 09/18/2021 3:37 PM RN STARS Small bowel dilatation, could represent partial obstruction. Could consider small bowel series for evaluation of NSAID enteropat hy. Narrative 09/18/2021 3:37 PM RN STARS EXAM: ??INTERPRETATION OF OUTSIDE CT ABDOMEN AND [...] for evaluation of NSAID enteropat hy. Raul Neil M.D. [facility] PROCEDURES documented in this encounter Visit Diagnoses Not on filedocumented in this encounter Additional Health Concerns Infection Onset Date Last Indicated Resolved Time COVID19 Pending 09/18/2021 09/18/2021 09/18/2021 3:37 PM RN STARS documented as of this encounter Care Teams Ranch [employer] Livestock Relationship Specialty Start Date End Date Elsewhere, Pcp PCP - General Internal Medicine 09/18/21 documented as of this encounter
--- OUTSIDE RECORDS SUMMARY | 2022-04-25 11:10 | XMS_ITS | Encounter Summary ---
:1975 Author Organization [facility] Address [address] [place] [address] Care Team Providers Name Role Phone Unavailable Primary Care Provider Unavailable Encounter Details Date Type Department Care Team Description 09/06/2021 Ancillary Procedure Department of Radiology John Neil, in [facility] tsering [place] [address] [facility] [address] [place] [phone] (Wo rk) Social History Tobacco Use Types [...] or relatives? How often do you attend sabianism or More than 4 times per year 09/15/2021 presybeterian services? Do you belong to any clubs or Yes 09/15/2021 organizations such as sabianism groups, unions, fraternal or athletic groups, or [...] at Date Recorded Male 09/15/2021 9:14 AM TIMERS INSPECTOR documented as of this encounter Plan of Treatment Not on filedocumented as of this encounter Procedures Procedure Name Priority Date/Time Associated Comments Diagnosis INTERPRETATION OF RAD - Routine 09/06/2021 4:23 Result s for OUTSIDE CT ABDOMEN (most inpatients PM TIMERS INSPECTOR this procedure AND OR PELVIS and all are in the outpatients) results section. documented in this encounter Results Interpretation of Outside CT Abdomen and or Pelvis (09/06/2021 4:23 PM TIMERS INSPECTOR) Anatomical Region Laterality Modality Abdomen, Pelvis, Abdominal RST LOS, Abdominal ARZ LOS, N/A Computed Tomography Abdominal FLA LOS, Other Specimen (Source) Anatomical Collection Method Collection Time Re ceived Time Location / / Volume Laterality 09/06/2021 6:03 PM TIMERS INSPECTOR Impressions 09/06/2021 6:39 PM TIMERS INSPECTOR 1. Findings compatible with Crohn's disease. At least low-grade mechanical small bowel obstruction related to narrowed/strictured small bow el disease. 2. Portal venous gas in the liver withou t definite source although the stomach is suggested given additional gas present in portal vessels about the stomach. Narrative 09/06/2021 6:39 PM TIMERS INSPECTOR EXAM: ??INTERPRETATION OF OUTSIDE CT ABDOMEN AND [...] of Outside CT Chest (09/06/2021 4:23 PM TIMERS INSPECTOR) Anatomical Region Laterality Modality Chest, Thoracic RST LOS, Thoracic ARZ LOS, Thoracic N/A Computed Tomography FLA LOS, Other, Body Specimen (Source) Anatomical Collection Method Collection Time Re ceived Time Location / / Volume Laterality 09/06/2021 6:03 PM TIMERS INSPECTOR Impressions 09/06/2021 6:39 PM TIMERS INSPECTOR 1. Findings compatible with Crohn's disease. At least low-grade mechanical small bowel obstruction related to narrowed/strictured small bow el disease. 2. Portal venous gas in the liver withou t definite source although the stomach is suggested given additional gas present in portal vessels about the stomach. Narrative 09/06/2021 6:39 PM TIMERS INSPECTOR EXAM: ??INTERPRETATION OF OUTSIDE CT ABDOMEN AND [...]
--- OUTSIDE RECORDS SUMMARY | 2022-04-25 11:10 | XMS_ITS | Encounter Summary ---
:1975 Author Organization [facility] Address [address] [place] [address] Care Team Providers Name Role Phone Unavailable Primary Care Provider Unavailable Reason for Visit Auth/Cert Specialty Diagnoses / Procedures Referred By Contact Refer red To Contact Diagnoses Obstruction Intestinal (HCC) Procedures COLONOSCOPY Referral ID Status Reason Start Date Expiration Date Visits Requ ested Visits Authorized [id number] 1 1 Encounter Details Date Type Department Care Team Description 09/13/2021 Anesthesia Event Division of Gastroenterology Melody Hamilton APRN, CLIFF, DNAP [address] [place] [phone] [facility] Cash Morris APRN, FRUIT HARVESTER, D.N.P. [address] [place] [address] [phone] [place] [phone] Anesthesia Record Procedure Summary Procedure Name Responsible Anesthesiologist Anesthesia Start Ti me Anesthesia Stop Time COLONOSCOPY Melody Ramos APRN, 09/13/21 0908 09/13/21 0941 CLIFF DNAMickie Events Date Time Event Comment 09/13/2021 0908 An Start Machine/Equipmen t Checked Infection Precautions Foll owed Procedure/Site Verified NPO Sta tus Verified Supine Standard ASA Mon itors Applied 0911 Turnover to Proceduralist 0917 Proc Start 0935 Proc Fin 0935 Turnover to ANE Staff 0936 an stop data 0941 An End I completed my h andoff to the receiving staff during i ch we 1. Identified the patient 2. Ident ified the responsible provider 3. Revi ewed the pertinent medical history 4. Discu ssed the surgical course 5. Reviewed intra-o p anesthesia management and issues during an esthesia 6. Set expectations for post-procedure period 7. Allowed opportun ity for questions and acknowledgement of understanding. Name Total fentanyl injection 50 mcg/mL 75 mcg lidocaine 2% (mg) injection 100 mg propofol 10 mg/mL injection 120 mg propofol 10 mg/mL infusion 529.2 mg ondansetron PF 4 mg/2 mL injection 4 mg Lactated Ringers Free Drip 400 mL Agents No agents on file. Blood No blood administrations on file. Lines, Drains, and Airways Type Details Placement Removal Peripheral IV Placement Date: 09/13/21; 09/13/21904 by 09/13 by Placement Time: 904; Deya Mckinney, R.N. Ellen Helm, R.N. Catheter Size: 20 G; Orientation: Right; Location: Hand; Site Prep: Chlorhexidine (Preferred); Technique: Anatomical landmarks; Inserted by: abs; Insertion Attempts: 1; Removal Date: 09/13/21; Removal Time: 1048; Removal Reason: Patient discharged documented in this encounter Social History Tobacco [...] More than 4 times per year 09/15/2021 yazidism services? Do you belong to any clubs [...] place to sleep or slept in a custodial (including now)? 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 - 09/13/2021 9:41 AM CST Patient: Lawson Whitley Procedure Summary Date: 09/13/21 Room / Location: Division of Gastroenterology in [place], [place] Anesthesia Start: 907 Anesthesia Stop: 940 Procedure: COLONOSCOPY Diagnosis: Obstruction Intestinal (HCC) Obstruction Intestinal (HCC) Scheduled Providers: Cash Morris APRN, CRNA, D.N.P. Responsible Provider: Melody Ramos APRN, CRNA, DNAP Anesthesia Type: MAC ASA Status: Not recorded Anesthesia Type: MAC Last vitals Vitals Value Taken Time BP 102/67 09/13/21 0940 Temp Pulse 79 09/13/21 0940 Resp 15 09/13/21 0940 SpO2 93 % 09/13/21 0940 Vitals shown include unvalidated device data. Please reference Vitals flowsheet for most recent vital signs. Anesthesia Post Evaluation Patient Disposition: dismissal Cardiovascular status: hemodynamics (HR & BP) acceptable Respiratory status: patent airway with spontaneous effort Temperature: normothermic Oxygen requirements: room air Level of consciousness: awake Pain score: pain adequately controlled and/or at baseline Post Op nausea/vomiting: none Hydration status: euvolemic EY ASSOCIATE Anesthesia Preprocedure Evaluation - Cash Morris APRN, CRNA, D.N.P. - 09/13/2021 8:42 AM CST Preprocedure Anesthesia & H&P Assessment Procedure Summary Date/Time: 09/13/21 0915 Scheduled providers: Cash Morris APRN, CRNA, D.N.P. Procedure: COLONOSCOPY Diagnosis: Obstruction Intestinal (HCC) [K56.609] Obstruction Intestinal (HCC) [K56.609] Location: Division of Gastroenterology in [place], [place] Pertinent components of the patient's history including current problem list, medical history, surgical history, family history, social history, medications and allergies were reviewed. Present illnessand pre-op diagnosis were confirmed. The planned surgery / procedure was verified with the patient /legal guardian. The patient's general health condition remains unchanged RELEVANT COMORBID CONDITIONS GI (+) Ileocolitis Crohn's (HCC) OBJECTIVE PHYSICAL EXAMINATION Airway (HEENT) Mallampati: III TM Distance: >3 FB Neck ROM: Full Mouth Opening: >3 cm Cardiovascular Rhythm: Regular Rate: Normal Cardiovascular Assessment: cardiovascular normal Functional Capacity: >4 METS Pulmonary Pulmonary Assessment: Clear General / Constitutional Constitutional Assessment: Overweight General State of Health:: calm Neurological Neurologic Assessment:??alert and alert and oriented x 3 Dental Dental Assessment: dentition intact ASSESSMENT / PLAN ANESTHESIA PLAN ASA: 3 Anesthesia Plan: MAC Patient seen and allergies reviewed, anesthesia plan and risks discussed directly with patient /legal guardian or through an inseam leveler. The use of blood products not discussed Approval to Proceed: approved for anesthesia EY ASSOCIATE documented in this encounter Plan of Treatment Not on filedocumented as of this encounter Visit Diagnoses Not on filedocumented in this encounter Administered Medications Inactive Administered Medications - up to 3 most recent administrations Medication Order MAR Action Action Date Dose Rate Site fentaNYL injection (SUBLIMAZE) Given 09/13/2021 9:15 AM SURVEY ASSOCIATE 25 mcg intravenous, As needed, Starting on Mon09/13/21 at 0912, Anesthesia Intra-op Given 09/13/2021 9:12 AM SURVEY ASSOCIATE 50 mcg lactated ringers New Bag 09/13/2021 9:09 AM SURVEY ASSOCIATE intravenous, Continuous Infusion: Per Instructions PRN, Starting on Mon09/13/21 at 0909, Anesthesia Intra-op lidocaine (PF) (cardiac) injection Given 09/13/2021 9:12 AM SURVEY ASSOCIATE 100 mg intravenous, As needed, Starting on Mon09/13/21 at 0912, Anesthesia Intra-op ondansetron (PF) injection (ZOFRAN) Given 09/13/2021 9:12 AM SURVEY ASSOCIATE 4 mg intravenous, As needed, Starting on Mon09/13/21 at 0912, Anesthesia Intra-op propofol 10 mg/mL infusion Rate/Dose 09/13/2021 9:29 100 mcg/kg/min 70.56 (DIPRIVAN) Change AM SURVEY ASSOCIATE mL/hr intravenous, Continuous Infusion: Per Instructions PRN, Starting on Mon09/13/21 at 0909, Anesthesia Intra-op New Bag 09/13/2021 9:24 AM SURVEY ASSOCIATE 200 mcg/kg/min 141.12 mL/hr New Bag 09/13/2021 9:09 AM SURVEY ASSOCIATE 200 mcg/kg/min 141.12 mL/hr propofoL injection (DIPRIVAN) Given 09/13/2021 9:15 AM SURVEY ASSOCIATE 30 mg intravenous, As needed, Starting on Mon09/13/21 at 0909, Anesthesia Intra-op Given 09/13/2021 9:13 AM SURVEY ASSOCIATE 30 mg Given 09/13/2021 9:11 AM SURVEY ASSOCIATE 30 mg documented in this encounter
--- OUTSIDE RECORDS SUMMARY | 2022-04-25 11:11 | XMS_ITS | Clinical Summary ---
:1975 Author Organization [facility] Address [address] [address] Care Team Providers Name Role Phone Silvestre Cortez MD Primary Care Provider Source Comments You are receiving this document as you are listed as the primary care provider,follow-up provider, or the patient has been referred to you for consultation.This is in compliance with the Medicare and Medicaid EHR Incentive Program,which states Providers who transition their patient to another setting of careor provider of care or refers their patient to another provider of care shouldprovide summarycare record for each transition of care or referral. [employer] Allergies No known active allergies Medications Medication Sig Dispensed Refills Start Date End Date Status gemfibrozil (LOPID) Take 600 mg by 0 Active 600 MG tablet mouth two times a day. traMADol (ULTRAM) 50 Take 150 mg by 0 Active MG tablet mouth daily at bedtime. eszopiclone (LUNESTA) Take by mouth 0 Active 3 MG tablet daily at bedtime. folic acid 1 MG Take 1 Tablet by 90 Tablet 3 06/04/2019 Active tabletIndications: mouth daily. Inflammatory arthritis, Primary osteoarthritis involving multiple joints, Chronic pain syndrome methotrexate 2.5 MG 4 tablets once a 32 Tablet 3 07/29/2019 Active tabletIndications: week for the 1st Inflammatory arthritis 2 weeks then increase to 8 tablets once a week thereafter DULoxetine (CYMBALTA) Take 1 Capsule by 30 Capsule 3 0 Active 60 MG mouth daily. capsuleIndications: Chronic pain syndrome, Inflammatory arthritis, Primary osteoarthritis involving multiple joints Active Problems Problem Noted Date Crohn's disease of both small and large intestine 07/25 Social History Tobacco Use Types Packs/Day Years Used Date Smoking Tobacco: Never Sex Assigned at Date Recorded Not on file Last Filed Vital Signs Vital Sign Reading Time Taken Comments Blood Pressure 141/85 09/13/2019 10:28 AM SUPERVISOR BEATER ROOM Pulse 77 06/04/2019 9:18 AM SUPERVISOR BEATER ROOM Temperature 36.7 ??C (98 ??F) 09/13/2019 10:28 AM SUPERVISOR BEATER ROOM Respiratory Rate - - Oxygen Saturation - - Inhaled Oxygen Concentration - - Weight 110.7 kg (244 lb) 06/04/2019 9:18 AM SUPERVISOR BEATER ROOM Height - - Body Mass Index - - Plan of Treatment Health Maintenance Due Date Last Done Comments Colon Cancer Screening Plan 1975 Due Hep C Screening (Preventive 1975 Services) HepB (1) 1975 COVID-19 Vaccine (#1) 02/05/1976 HIV Screening (Preventive 1991 Services) Adult Preventive Visit 1993 Cholesterol 2010 DTaP/Tdap/Td (1 - Tdap) 08/05/2015 08/04/2015 Influenza (#1) 2022 06/12/2020, 04/23/2019, 06/01/2018, Additional history exists Zoster/Shingles (1 of 2) 2025 HepA Aged Out No longer eligib le based on patient 's age to complete this topic Hib Aged Out No longer eligib le based on patient 's age to complete this topic IPV (Polio) Aged Out No longer eligib le based on patient 's age to complete this topic MCV4 Aged Out No longer eligib le based on patient 's age to complete this topic Pneumococcal Aged Out No longer eligib le based on patient 's age to complete this topic Care Teams Cleaner Wall Relationship Specialty Start Date End Date Silvestre Cortez MD PCP - General 05/21/191999 [place] [address]
--- OUTSIDE RECORDS SUMMARY | 2022-04-25 11:11 | XMS_ITS | Encounter Summary ---
:1975 Author Organization [facility] Address [address], [place] [address] Care Team Providers Name Role Phone Silvestre Cortez MD Primary Care Provider Reason for Visit Procedure/Equipment (Routine) - Incomplete Specialty Diagnoses / Procedures Referred By Contact Refer red To Contact Diagnoses Inflammatory arthritis Primary osteoarthritis involving multiple joints Chronic pain syndrome Dean Chi MD Procedures XR Foot/Feet Arthritis [address] [place], [place] [address] Referral ID Status Reason Start Date Expiration Date Visits V isits Requested Authorized [id number] Incomplete 06/04/2019 09/02/2020 1 1 Encounter Details Date Type Department Care Team Description 06/04/2019 Ancillary [facility] [address] Dean Chi MD Inflammatory arthritis; Procedure Radiology [address] [place] Primary osteoarthritis invol ving multiple joints; [address] [facility] [place] [address] [place] [address] [phone] Social History Tobacco Use Types Packs/Day Years Used Date Smoking Tobacco: Never Sex Assigned at Date Recorded Not on file documented as of this encounter Progress Notes Dean Chi MD - 06/04/2019 10:35 AM CST X-ray of the feet shows mild degenerative joint disease/osteoarthritis predominantly in the 1st toe in both feet. ASSEMBLER documented in this encounter Plan of Treatment Not on filedocumented as of this encounter Procedures Procedure Name Priority Date/Time Associated Diagnosis Comme nts XR FEET 1 VIEW Routine 06/04/2019 10:43 Inflammatory ar thritis Results for this BILAT ARTHRITIS AM LINK ASSEMBLER Primary osteoarthritis pr ocedure are in involving multiple the resul ts joints section. Chronic pain syndrome documented in this encounter Results XR Foot/Feet Arthritis (06/04/2019 10:43 AM LINK ASSEMBLER) Anatomical Region Laterality Modality Lower Extremity, Foot Digital Radiograph y Specimen (Source) Anatomical Collection Method Collection Time Re ceived Time Location / / Volume Laterality 06/04/2019 10:23 AM LINK ASSEMBLER Impressions 06/04/2019 11:53 AM LINK ASSEMBLER COMPARISON: ??None. FINDINGS: ??AP arthritis series of the b ilateral feet. No acute bony abnormalities including no erosive changes throughout the feet. Joint spaces are intact. Mild early osteoarthritis at the right foot first MTP joint with prominent lateral o steophytes present. Procedure Note Terrell Sainz MD - 06/04/2019 IMPRESSION COMPARISON: None. FINDINGS: AP arthritis series of the [place] ateral feet. No acute bony abnormalities including no erosive changes throughout the feet. Joint spaces are intact. Mild early osteoarthritis at the right foot first MTP joint with prominent lateral osteophytes present. Dean Chi MD RAD GD documented in this encounter Visit Diagnoses Diagnosis Inflammatory arthritis Unspecified inflammatory polyarthropathy Primary osteoarthritis involving multipl e joints Chronic pain syndrome documented in this encounter Care Teams Regional Sales Director Relationship Specialty Start Date End Date Silvestre Cortez MD PCP - General 05/21/191999 [place] [address] documented as of this encounter
--- OUTSIDE RECORDS SUMMARY | 2022-04-25 11:11 | XMS_ITS | Encounter Summary ---
:1975 Author Organization [employer] [employer] [facility] Address [address] [place] [address] Care Team Providers Name Role Phone Silvestre Cortez MD Primary Care Provider Reason for Visit Reason Comments Medication Questions BODY ACHES Encounter Details Date Type Department Care Team Description 06/07/2019 Telephone [facility] [address] Dean Chi MD Medication Questions; Rheumatology [address] BODY ACHES [address] [place] [id number] [phone] Social History Tobacco Use Types Packs/Day Years Used Date Smoking Tobacco: Never Sex Assigned at Date Recorded Not on file documented as of this encounter Nursing Notes Samira Rubio LPN - 06/07/2019 2:45 PM CST Called patient back and they verbalized an understanding. They were encouraged to call back with anyfuture questions or concerns. Dena Kwon MD - 06/07/2019 1:22 PM CST Recommend a trial with a short course of prednisone tapering dose. Will send a prescription to the pharmacy. Evie Koenig LPN - 06/07/2019 8:50 AM CST Patient states he was seen 11-12 and was told to see his PCP. He states he cannot get in until 06-19. He states during the day when he is busy he can work through his pain. At night at home he states that's when he really feels the pain in his hands, feet and shoulders. Last night he felt like he wanted to crawl out of his skin. Refer to pain clinic? Thank you. 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
--- OUTSIDE RECORDS SUMMARY | 2022-04-25 11:11 | XMS_ITS | Encounter Summary ---
:1975 Author Organization [facility] Address [address], [place] [address] Care Team Providers Name Role Phone Silvestre Cortez MD Primary Care Provider Encounter Details Date Type Department Care Team Description 09/13/2019 Notes/Orders [facility] [address] Dean Chi MD Rheumatology [address] [place] [address] [place], [place] [id number] [phone] Social History Tobacco Use Types Packs/Day Years Used Date Smoking Tobacco: Never Sex Assigned at Date Recorded Not on file documented as of this encounter Plan of Treatment Not on filedocumented as of this encounter Visit Diagnoses Not on filedocumented in this encounter Care Teams Rack Loader Relationship Specialty Start Date End Date Silvestre Cortez MD PCP - General 05/21/191999 [place] [address] documented as of this encounter
--- OUTSIDE RECORDS SUMMARY | 2022-04-25 11:11 | XMS_ITS | Encounter Summary ---
:1975 Author Organization [employer] Address [address] [place] [address] Care Team Providers Name Role Phone Silvestre Cortez MD Primary Care Provider Reason for Visit Reason Comments Medication Questions Medication Side Effects Encounter Details Date Type Department Care Team Description 07/29/2019 Telephone [facility] [address] Dean Chi MD Medication Questions; Rheumatology [address] [place] [address] Medication Side [address] [place] [id number] [phone] Social History Tobacco Use Types Packs/Day Years Used Date Smoking Tobacco: Never Sex Assigned at Date Recorded Not on file documented as of this encounter Nursing Notes Samira Rubio LPN - 07/29/2019 3:30 PM CST Called patient back and they verbalized an understanding. They were encouraged to call back with anyfuture questions or concerns. PT will keep his sep 13 appt with you. KERCHIEF PRESSER Dean Chi MD - 07/29/2019 3:13 PM CST Recommend trying methotrexate. Recommend methotrexate 4 tablets once a week for the 1st 2 weeks then increase to 8 tablets once a week thereafter accompanied by folic acid daily. Recommend blood work in 1 month and every 2-3 months thereafter. Will send the prescription to the pharmacy. Discontinue sulfasalazine at this time. KERCHIEF PRESSER Samira Rubio LPN - 07/29/2019 1:06 PM CST Pt called. PT was in to see you on 06/04/19. He started sulfasalazine at that time. After about three weeks, he went into ER as he had had headaches. ER suggested the new medication hewas taking could be the cause. His headaches started after starting sulfasalazine on the two pills BID. He has been off of the medication and his head aches have gone. The joint pain is coming right back, though. The SSZ was working for the joint pain but it doesn't look like he can take it because of the headaches. Is there anything else he can try? Please advise. Pharmacy verified. KERCHIEF PRESSER documented in this encounter Plan of Treatment Not on filedocumented as of this encounter Visit Diagnoses Diagnosis Inflammatory arthritis - Primary Unspecified inflammatory polyarthropathy documented in this encounter Care Teams Photoengraving Printer Relationship Specialty Start Date End Date Silvestre Cortez MD PCP - General 05/21/191999 [place] [address] documented as of this encounter
--- OUTSIDE RECORDS SUMMARY | 2022-04-25 11:11 | XMS_ITS | Encounter Summary ---
:1975 Author Organization [facility] Address [address], [place] [address] Care Team Providers Name Role Phone Silvestre Cortez MD Primary Care Provider Reason for Visit Procedure/Equipment (Routine) - Incomplete Specialty Diagnoses / Procedures Referred By Contact Refer red To Contact Diagnoses Inflammatory arthritis Primary osteoarthritis involving multiple joints Chronic pain syndrome Dean Chi MD Procedures XR Hand(s) Arthritis [address] [place], [place] [address] Referral ID Status Reason Start Date Expiration Date Visits V isits Requested Authorized [id number] Incomplete 06/04/2019 09/02/2020 1 1 Encounter Details Date Type Department Care Team Description 06/04/2019 Ancillary [facility] [address] Dean Chi MD Inflammatory arthritis; Procedure Radiology [address] [place] Primary osteoarthritis invol ving multiple joints; [address] [place] [facility] [place] [address] [place] [address] [phone] Social History Tobacco Use Types Packs/Day Years Used Date Smoking Tobacco: Never Sex Assigned at Date Recorded Not on file documented as of this encounter Progress Notes Dean Chi MD - 06/04/2019 10:40 AM CST X-ray of the hand is unremarkable. No signs of joint erosions. RT/EXPORT FREIGHT FORWARDER documented in this encounter Plan of Treatment Not on filedocumented as of this encounter Procedures Procedure Name Priority Date/Time Associated Diagnosis Comme nts XR HANDS 1 VIEW Routine 06/04/2019 10:42 Inflammatory ar thritis Results for this BILAT ARTHRITIS AM IMPORT/EXPORT FREIGHT FORWARDER Primary osteoarthritis pr ocedure are in involving multiple the resul ts joints section. Chronic pain syndrome documented in this encounter Results XR Hand(s) Arthritis (06/04/2019 10:42 AM IMPORT/EXPORT FREIGHT FORWARDER) Anatomical Region Laterality Modality Upper Extremity, Hand Digital Radiograph y Specimen (Source) Anatomical Collection Method Collection Time Re ceived Time Location / / Volume Laterality 06/04/2019 10:22 AM IMPORT/EXPORT FREIGHT FORWARDER Impressions 06/04/2019 11:54 AM IMPORT/EXPORT FREIGHT FORWARDER COMPARISON: ??None. FINDINGS: ??PA bilateral arthritis serie s of the hands. No acute bony abnormalities including no erosive changes. Joint spaces are intact. Bone mineralization is within normal limits. Procedure Note Terrell Sainz MD - 06/04/2019 IMPRESSION COMPARISON: None. FINDINGS: PA bilateral arthritis series of the hands. No acute bony abnormalities including no erosive changes. Joint spaces are intact. Bone mineralization is within normal limits. Dean Chi MD RAD GD documented in this encounter Visit Diagnoses Diagnosis Inflammatory arthritis Unspecified inflammatory polyarthropathy Primary osteoarthritis involving multipl e joints Chronic pain syndrome documented in this encounter Care Teams Remedy Developer Relationship Specialty Start Date End Date Silvestre Cortez MD PCP - General 05/21/191999 [place] [address] documented as of this encounter
--- OUTSIDE RECORDS SUMMARY | 2022-04-25 11:11 | XMS_ITS | Encounter Summary ---
:1975 Author Organization [facility] Address [address] [place] [address] Care Team Providers Name Role Phone Unavailable Primary Care Provider Unavailable Encounter Details Date Type Department Care Team Description 08/19/2016 Hospital Encounter HX NO MAPPING Social History Tobacco Use Types Packs/Day Years Used Date Smoking Tobacco: Never Assessed Alcohol Habits Answer Date Recorded How often [...] or relatives? How often do you attend gnosticist or More than 4 times per year 09/15/2021 gnosticist services? 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
--- OUTSIDE RECORDS SUMMARY | 2022-04-25 11:11 | XMS_ITS | Encounter Summary ---
:1975 Author Organization [email or web address] Address [address] [place] [address] Care Team Providers Name Role Phone Silvestre Cortez MD Primary Care Provider Encounter Details Date Type Department Care Team Description 06/04/2019 Lab Visit [facility] 3850 Inflammat ory arthritis; Laboratory Primary osteoarthritis invol ving multiple joints; [address] Chronic pain syndrome [place], [place] [id number] Social History Tobacco Use Types Packs/Day Years Used Date Smoking Tobacco: Never Sex Assigned at Date Recorded Not on file documented as of this encounter Progress Notes Dean Chi MD - 06/04/2019 10:45 AM CST Work recent blood work shows elevated uric acid level. This can predispose to gout arthritis. Normal inflammatory markers C-reactive protein and sedimentation rate. Normal protein electrophoresis. Mild elevation of liver enzyme. Normal white blood cells and red blood cells. 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 CREATININE / GFR Routine 06/04/2019 10:50 Inflammatory a rthritis Results for this AM MEDICAL RECORDS SUPERVISOR Chronic pain syndrome proced ure are in the results section. COMPLETE BLOOD Routine 06/04/2019 10:50 Inflammatory ar thritis Results for this COUNT-W/DIFF AM MEDICAL RECORDS SUPERVISOR Chronic pain syndrome proced ure are in the results section. ELP, CASCADE, SERUM Routine 06/04/2019 10:50 Inflammator y arthritis Results for this AM MEDICAL RECORDS SUPERVISOR Primary osteoarthritis proce dure are in involving multiple the resul ts joints section. Chronic pain syndrome DIFFERENTIAL Routine 06/04/2019 10:50 Inflammatory ar thritis Results for this AM MEDICAL RECORDS SUPERVISOR Chronic pain syndrome proced ure are in the results section. HLA B27 Routine 06/04/2019 10:50 Inflammatory ar thritis Results for this AM MEDICAL RECORDS SUPERVISOR Primary osteoarthritis proce dure are in involving multiple the resul ts joints section. Chronic pain syndrome C-REACTIVE PROTEIN Routine 06/04/2019 10:50 Inflammatory arthritis Results for this AM MEDICAL RECORDS SUPERVISOR Primary osteoarthritis proce dure are in involving multiple the resul ts joints section. Chronic pain syndrome URIC ACID Routine 06/04/2019 10:50 Inflammatory ar thritis Results for this AM MEDICAL RECORDS SUPERVISOR Primary osteoarthritis proce dure are in involving multiple the resul ts joints section. Chronic pain syndrome ALT (SGPT) Routine 06/04/2019 10:50 Inflammatory ar thritis Results for this AM MEDICAL RECORDS SUPERVISOR Chronic pain syndrome proced ure are in the results section. AST Routine 06/04/2019 10:50 Inflammatory ar thritis Results for this AM MEDICAL RECORDS SUPERVISOR Chronic pain syndrome proced ure are in the results section. ESR Routine 06/04/2019 10:50 Inflammatory ar thritis Results for this AM MEDICAL RECORDS SUPERVISOR Primary osteoarthritis proce dure are in involving multiple the resul ts joints section. Chronic pain syndrome documented in this encounter Results (ABNORMAL) Differential (06/04/2019 10:50 AM MEDICAL RECORDS SUPERVISOR) [facility] gist Method Time Signature RBC Morphology Reviewed 06/04/2019 [facility] 11:39 AM MEDICAL RECORDS SUPERVISOR [address] LABORATORY Platelet Adequate Adequate 06/04/2019 [facility] Estimate 11:39 AM MEDICAL RECORDS SUPERVISOR [address] LAB[address] Neutrophil 1.5 (L) 1.7 - 7.0 06/04/2019 [facility] Absolute 10(9)/L 11:39 AM MEDICAL RECORDS SUPERVISOR [address] LAB[address]ORY Lymphocyte 1.4 1.0 - 4.8 06/04/2019 [facility] Absolute 10(9)/L 11:39 AM MEDICAL RECORDS SUPERVISOR [address] LAB[address]ORY Monocytes 0.4 0.2 - 0.9 06/04/2019 [facility] Absolute 10(9)/L 11:39 AM MEDICAL RECORDS SUPERVISOR [address] LAB[address]ORY Eosinophil 0.1 0.0 - 0.5 06/04/2019 [facility] Absolute 10(9)/L 11:39 AM MEDICAL RECORDS SUPERVISOR [address] LAB[address]ORY Basophil 0.0 0.0 - 0.3 06/04/2019 [facility] Absolute 10(9)/L 11:39 AM MEDICAL RECORDS SUPERVISOR [address] LAB[address]ATORY Specimen Anatomical Collection Method / Collection Time Recei niranjan Time (Source) Location / Volume Laterality Blood Venipuncture / 06/04/2019 10:50 9 Unknown AM MEDICAL RECORDS SUPERVISOR 10:50 AM MEDICAL RECORDS SUPERVISOR Dean Chi MD LAB_1 Performing Organization Address City/State/ZIP Code Phon e Number [facility] [address] [place], [place] [address] [address] Complete Blood Count-W/Diff (06/04/2019 10:50 AM MEDICAL RECORDS SUPERVISOR) P athologist Signature WBC 3.5 3.5 - 10.5 06/04/2019 [facility] x10(9)/L 11:39 AM MEDICAL RECORDS SUPERVISOR [address] LAB[address] RBC 4.59 4.32 - 06/04/2019 [facility] 5.72 11:39 AM MEDICAL RECORDS SUPERVISOR [address] LABORATORY x10(12)/L Hemoglobin 14.2 13.5 - 06/04/2019 [facility] 17.5 g/dL 11:39 AM MEDICAL RECORDS SUPERVISOR [address] LAB[address] HCT 41.9 38.8 - 06/04/2019 [facility] 50.0 % 11:39 AM MEDICAL RECORDS SUPERVISOR [address] MCV 91.3 80.0 - 06/04/2019 [facility] 100.0 fL 11:39 AM MEDICAL RECORDS SUPERVISOR [address] LAB[address] MCH 30.9 27.6 - 06/04/2019 [facility] 33.3 pg 11:39 AM MEDICAL RECORDS SUPERVISOR [address] MCHC 33.9 31.5 - 06/04/2019 [facility] 35.2 g/dL 11:39 AM MEDICAL RECORDS SUPERVISOR [address] RDW 13.5 11.9 - 06/04/2019 [facility] 15.5 % 11:39 AM MEDICAL RECORDS SUPERVISOR [address] LAB[address]ATORY Platelets 297 150 - 450 06/04/2019 [facility] x10(9)/L 11:39 AM MEDICAL RECORDS SUPERVISOR [address] LAB[address] Automated NRBC 0 <=0 /100 06/04/2019 [facility] WBC 11:39 AM MEDICAL RECORDS SUPERVISOR [address] LAB[address]ORY Specimen Anatomical Collection Method / Collection Time Recei niranjan Time (Source) Location / Volume Laterality Blood Venipuncture / 06/04/2019 10:50 9 Unknown AM MEDICAL RECORDS SUPERVISOR 10:50 AM MEDICAL RECORDS SUPERVISOR Dean Chi MD LAB_1 Performing Organization Address City/State/ZIP Code Phon e Number [facility] [address] [place] [address] [address] CREAT - Creatinine - standing Q3 months (06/04/2019 10:50 AM MEDICAL RECORDS SUPERVISOR) athologist Signature Creatinine 0.89 0.73 - 06/04/2019 [facility] 1.18 mg/dL 11:41 AM MEDICAL RECORDS SUPERVISOR [address] GFR, Estimated >60 >60 06/04/2019 [facility] mL/min/1.7 11:41 AM MEDICAL RECORDS SUPERVISOR [address] LAB[address] 3m2 GFR, Est If >60 >60 06/04/2019 [facility] mL/min/1.7 11:41 AM MEDICAL RECORDS SUPERVISOR [address] LAB[address] Uzbek 3m2 Specimen Anatomical Collection Method / Collection Time Recei niranjan Time (Source) Location / Volume Laterality Blood Venipuncture / 06/04/2019 10:50 9 Unknown AM MEDICAL RECORDS SUPERVISOR 10:50 AM MEDICAL RECORDS SUPERVISOR Dean Chi MD LAB_1 Performing Organization Address City/State/ZIP Code Phon e Number [facility] [address] [place], [place] [phone] [address] AST - Aspartate Aminotransferase - standing Q3 months (06/04/2019 10:50 AM MEDICAL RECORDS SUPERVISOR) athologist Signature AST (SGOT) 31 10 - 40 U/L 06/04/2019 [facility] 11:41 AM MEDICAL RECORDS SUPERVISOR [address] LAB[address] Specimen Anatomical Collection Method / Collection Time Recei niranjan Time (Source) Location / Volume Laterality Blood Venipuncture / 06/04/2019 10:50 9 Unknown AM MEDICAL RECORDS SUPERVISOR 10:50 AM MEDICAL RECORDS SUPERVISOR Dean Chi MD LAB_1 Performing Organization Address City/State/ZIP Code Phon e Number [facility] [address] [place], [place] [address] [address] (ABNORMAL) ALT - Alanine Aminotransferase - standing Q3 months (06/04/2019 10:50 AM MEDICAL RECORDS SUPERVISOR) P athologist Signature ALT (SGPT) 56 (H) 0 - 55 U/L 06/04/2019 [facility] 11:41 AM MEDICAL RECORDS SUPERVISOR [address] LAB[address] Specimen Anatomical Collection Method / Collection Time Recei niranjan Time (Source) Location / Volume Laterality Blood Venipuncture / 06/04/2019 10:50 9 Unknown AM MEDICAL RECORDS SUPERVISOR 10:50 AM MEDICAL RECORDS SUPERVISOR Dean Chi MD LAB_1 Performing Organization Address City/[facility] Phon e Number [facility] [address] [phone] [address] HLA B27 (06/04/2019 10:50 AM MEDICAL RECORDS SUPERVISOR) P athologist Signature HLA B27 Negative Negative 06/04/2019 [facility] 4:31 PM [facility] Specimen Anatomical Collection Method / Collection Time Recei niranjan Time (Source) Location / Volume Laterality Blood Venipuncture / 06/04/2019 10:50 9 Unknown AM MEDICAL RECORDS SUPERVISOR 10:50 AM MEDICAL RECORDS SUPERVISOR [facility] - 06/04/2019 4:31 PM T This test was developed and the performance characteristics were determined by [facility]. It has not been cleared or approved by [facility] [place]. Food and Drug Administration. The FDA farooq s determined that such clearance or approv al is not necessary. Dean Chi MD LAB_1 Performing Organization Address City/[facility]/ZIP Code Phon e Number [facility] [address] [place] [address] ELCP - Electrophoresis [place] To DEWEY,Serum (06/04/2019 10:50 AM MEDICAL RECORDS SUPERVISOR) Component Value Ref Test Analysis Performed At Patholo gist Range Method Time Signature Total Protein 7.8 6.4 - 06/05/2019 [facility] 8.3 11:11 AM CENTRAL LAB g/dL MEDICAL RECORDS SUPERVISOR Albumin 4.7 3.4 - 06/05/2019 [facility] 4.8 11:11 AM CENTRAL LAB g/dL MEDICAL RECORDS SUPERVISOR Alpha 1 0.3 0.2 - 06/05/2019 [facility] 0.5 11:11 AM CENTRAL LAB g/dL MEDICAL RECORDS SUPERVISOR Alpha 2 0.7 0.5 - 06/05/2019 [facility] 1.1 11:11 AM C[facility]TRAL LAB g/dL MEDICAL RECORDS SUPERVISOR Beta 1.0 0.6 - [facility]/05/2019 [facility] 1.1 11:11 AM [facility] LAB g/dL MEDICAL RECORDS SUPERVISOR Gamma 1.1 0.7 - 06/05/2019 [facility] 1.6 11:11 AM CENTRAL LAB g/dL MEDICAL RECORDS SUPERVISOR Monoclonal Laurent 0.0 <=0.0 06/05/2019 [facility] g/dL 11:11 AM [facility]ENTRAL LAB MEDICAL RECORDS SUPERVISOR Interpretation No monoclonal 06/05/2019 [facility] protein is 11:11 AM CENTRAL LAB detected in the MEDICAL RECORDS SUPERVISOR serum. Additional Not indicated. 06/05/2019 [facility] Testing 11:11 AM CENTRAL LAB MEDICAL RECORDS SUPERVISOR Signed Out By [facility] 06/05/2019 [facility] 11:11 AM CENTRAL LAB Laboratory MEDICAL RECORDS SUPERVISOR Specimen Anatomical Collection Method / Collection Time Recei niranjan Time (Source) Location / Volume Laterality Blood Venipuncture / 06/04/2019 10:50 9 Unknown AM MEDICAL RECORDS SUPERVISOR 10:50 AM MEDICAL RECORDS SUPERVISOR Dean Chi MD LAB_1 Performing Organization Address City/[facility]/ZIP Code Phon e Number [facility]AL [facility] [address] [address] ESR - Sedimentation Rate (06/04/2019 10:50 AM MEDICAL RECORDS SUPERVISOR) Patholo gist Method Time Signature Sedimentation Rate 14 0 - 15 06/04/2019 [facility] mm/hr 12:30 PM MEDICAL RECORDS SUPERVISOR [address] LABORATORY Specimen Anatomical Collection Method / Collection Time Recei niranjan Time (Source) Location / Volume Laterality Blood Venipuncture / 06/04/2019 10:50 9 Unknown AM MEDICAL RECORDS SUPERVISOR 10:50 AM MEDICAL RECORDS SUPERVISOR Dean Chi MD LAB_1 Performing Organization Address City/[facility]/ZIP Code Phon e Number [facility] [address] [place], [place] [address] [address] CRP - C Reactive Protein (06/04/2019 10:50 AM MEDICAL RECORDS SUPERVISOR) P athologist Signature C-Reactive <0.5 0.0 - 0.7 06/04/2019 [facility] Protein mg/dL 11:41 AM MEDICAL RECORDS SUPERVISOR [address] LABORATORY Specimen Anatomical Collection Method / Collection Time Recei niranjan Time (Source) Location / Volume Laterality Blood Venipuncture / 06/04/2019 10:50 9 Unknown AM MEDICAL RECORDS SUPERVISOR 10:50 AM MEDICAL RECORDS SUPERVISOR Dean Chi MD LAB_1 Performing Organization Address City/[facility]/ZIP Code Phon e Number [facility] [address] [place], [place] [phone] [address] (ABNORMAL) URIC - Uric Acid (06/04/2019 10:50 AM MEDICAL RECORDS SUPERVISOR) P athologist Signature Uric Acid 8.6 (H) 3.5 - 7.2 06/04/2019 [facility] mg/dL 11:41 AM MEDICAL RECORDS SUPERVISOR [address] LAB[address]AT[address] Specimen Anatomical Collection Method / Collection Time Recei niranjan Time (Source) Location / Volume Laterality Blood Venipuncture / 06/04/2019 10:50 9 Unknown AM MEDICAL RECORDS SUPERVISOR 10:50 AM MEDICAL RECORDS SUPERVISOR Dean Chi MD LAB_1 Performing Organization Address City/[facility]/ZIP Code Phon e Number [facility] [address] [place], [place] [address] [address] documented in this encounter Visit Diagnoses Diagnosis Inflammatory arthritis Unspecified inflammatory polyarthropathy Primary osteoarthritis involving multipl e joints Chronic pain syndrome documented in this encounter Care Teams Edi Manager Relationship Specialty Start Date End Date Silvestre Cortez MD PCP - General 05/21/191999 [place] [address] documented as of this encounter
--- OUTSIDE RECORDS SUMMARY | 2022-04-25 11:11 | XMS_ITS | Encounter Summary ---
:1975 Author Organization [facility] Address [address] [place] [address] Care Team Providers Name Role Phone Unavailable Primary Care Provider Unavailable Encounter Details Date Type Department Care Team Description 03/12/2014 Hospital Encounter HX [facility] Arteaga, SID, C.N.P., [place], R.N. Social History Tobacco Use Types Packs/Day Years [...] or relatives? How often do you attend yazdanism or More than 4 times per year 09/15/2021 restorationist services? Do you belong to any clubs or Yes 09/15/2021 organizations such as yazdanism groups, unions, fraternal or athletic groups, or [...] to sleep or slept in a senior care (including now)? 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 - 03/12/2014 10:59 AM CDT Vision Testing Vision Testing Entered On: 03/12/2014 10:59 CDT Performed On: 03/12/2014 10:59 CDT by EDGAR SON RN Vision Testing Vision Testing Not Done : Done elsewhere Corrective Lenses : None EDGAR SON RN - 03/12/2014 10:59 CDT Source: [email or web address] Document Id: [id number] CDT!4 Edgar Son R.N. - 03/12/2014 10:59 AM CDT Urine Dipstick Urine Dipstick Entered On: 03/12/2014 11:00 CDT Performed On: 03/12/2014 10:59 CDT by EDGAR SON RN Urine Dipstick UA Color POC : Yellow UA Appear POC : Clear Test Strip Lot # : [id number] Test Strip Expiration Date : 2015-01 EDGAR SON RN - 03/12/2014 10:59 CDT Source: [email or web address] Document Id: [id number] CDT!6 documented in this encounter Plan of Treatment Not on filedocumented as of this encounter Procedures Procedure Name Priority Date/Time Associated Diagnosis Comme nts POCT KETONE, URINE Routine 03/12/2014 10:59 AM Re sults for this CDT procedure are i n the results section. documented in this encounter Results Ketone, Urine, POCT (03/12/2014 10:59 AM CDT) P athologist Signature Color Yellow POWERCHART Appearance Clear POWERCHART Specimen (Source) Anatomical Collection Method Collection Time Re ceived Time Location / / Volume Laterality 03/12/2014 10:59 AM CDT Malena Frances APRN, C.N.P., [place], R.N. LAB POCT ORDERAB LES-MANUAL Performing Organization Address City/State/ZIP Code Phon e Number P[facility]ART documented in this encounter Visit Diagnoses Not on filedocumented in this encounter
--- OUTSIDE RECORDS SUMMARY | 2022-04-25 11:11 | XMS_ITS | Encounter Summary ---
:1975 Author Organization [employer] Address [address], [place] [address] Care Team Providers Name Role Phone Silvestre Cortez MD Primary Care Provider Reason for Referral Procedure/Equipment (Routine) - Incomplete Specialty Diagnoses / Procedures Referred By Contact Refer red To Contact Diagnoses Inflammatory arthritis Primary osteoarthritis involving multiple joints Chronic pain syndrome Dean Chi MD Procedures XR Foot/Feet Arthritis [address] [place], [place] [address] Referral ID Status Reason Start Date Expiration Date Visits V isits Requested Authorized [id number] Incomplete 06/04/2019 09/02/2020 1 1 ERTY DISPOSAL MANAGER Procedure/Equipment (Routine) - Incomplete Specialty Diagnoses / Procedures Referred By Contact Refer red To Contact Diagnoses Inflammatory arthritis Primary osteoarthritis involving multiple joints Chronic pain syndrome Dean Chi MD Procedures XR Hand(s) Arthritis [address] [place], [place] [address] Referral ID Status Reason Start Date Expiration Date Visits V isits Requested Authorized [id number] Incomplete 06/04/2019 09/02/2020 1 1 ERTY DISPOSAL MANAGER Reason for Visit Reason Comments CONSULT Encounter Details Date Type Department Care Team Description 06/04/2019 Office Visit [facility] [address] Dean Chi MD Inflammatory arthritis (Primary Dx); Rheumatology [address] Primary osteoarthritis invol ving multiple joints; [address] [place] [phone] Social History Tobacco Use Types Packs/Day Years Used Date Smoking Tobacco: Never Sex Assigned at Date Recorded Not on file documented as of this encounter Last Filed Vital Signs Vital Sign Reading Time Taken Comments Blood Pressure 127/78 06/04/2019 9:18 AM PROPERTY DISPOSAL MANAGER Pulse 77 06/04/2019 9:18 AM PROPERTY DISPOSAL MANAGER Temperature - - Respiratory Rate - - Oxygen Saturation - - Inhaled Oxygen Concentration - - Weight 110.7 kg (244 lb) 06/04/2019 9:18 AM PROPERTY DISPOSAL MANAGER Height - - Body Mass Index - - documented in this encounter Patient Instructions Patient InstructionsDean Chi MD - 06/04/2019 9:30 AM CST Patient has been complaining of generalized joint pain. There is a history of inflammatory bowel disease/Crohn's disease/ ileitis. On physical exam there is mild synovial thickening in the 2nd and 3rd MCPs on the right, tenderness in the 2nd and 3rd PIPs on the left. Presence of diffuse point tenderness including shoulders, paraspinal muscles, trochanteric area and ankles bilaterally. Mild osteoarthritic changes in both hands. In the context of history of inflammatory bowel disease there is suspicion for an inflammatory arthritis related to inflammatory bowel disease. Recommend doing blood work today to further investigate. Recommend doing x-rays of both hands and feet. Recommend evaluation by Gastroenterology to assess the disease activity of inflammatory bowel disease. Recommend a trial with sulfasalazine 1 tablet daily for a week then increase to 2 tablets daily the 2nd week then increase to 2 tablets twice daily thereafter. Recommend folic acid daily. Recommend blood work in 1 month and every 2-3 months thereafter. Presence of mild generalized osteoarthritis and also rotator cuff tendinopathy with impingement syndrome in both shoulders. Not a good candidate for systemic NSAID in the context of history of inflammatory bowel disease. Recommend physical therapy and strengthening exercise of the rotator cuff muscles. Continue pain management as per PCP. In the future may consider steroid injections. There is a component of Chronic Pain Syndrome / Fibromyalgia overwhelming the symptoms. Chronic pain is common in patients with high levels of stress, depression, anxiety and PTSD. The treatment is challenging and multimodality approach is recommended including physical therapy, pain management, relaxation techniques, water therapy, yoga, octaviano chi, acupuncture, mental health practitioner. Recommend discussing with PCP adjuvant therapy like gabapentine, cymbalta, Lyrica, Sevella. Return to clinic in 3 months for follow up. ERTY DISPOSAL MANAGER documented in this encounter Progress Notes Dean Chi MD - 06/04/2019 9:30 AM CST Rheumatology New Patient/Consult Note Referral: Claude Tate MD [address] [place] [address] Chief Complaint Patient presents with ??? CONSULT HPI: Lawson Whitley is a 43 y.o. male with medical history as stated below including a history of inflammatory bowel disease/ileitis/Crohn's disease presents today with a chief complaint of joint pain predominantly in his hands, shoulders, hips and feet which has been in for almost a year. Patient describes episodes of swelling in his MCPs and PIP is. Describes nodules and bumps in his DIPs. Describesmorning stiffness in his hands and feet lasting up to an hour. Complains of lower back pain predominantly during the day with physical activities. Complains of discomfort in both shoulders with certainmovement and discomfort in the hips with lying on the side. Denies any skin rash, no fevers or chills. No sun sensitivity, no sicca symptoms, no oral ulcers, no Raynaud's phenomena. Intermittently he has use an ibuprofen even though it was recommended not to take it in the context of his history of ileitis. Lately patient has been using short courses of systemic prednisone by his PCP with improvementin his joint symptoms up to 70%. Complains of mild anxiety and stress in his life. 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 Does not sleep well. Indicates that intermittently has been having diarrhea. Denies any blood in the stools. When he takes the prednisone also the gastrointestinal symptoms improved. Patient it was told that since his ileitis has been intermittent it was recommended to use prednisone p.r.n. for flares. Patient is accompanied by his . Previous arthroscopic surgery in his shoulders. History of rheumatoid arthritis in his grandparents. ROS: Comprehensive review of systems form filled out by the patient for today's visit was reviewed, sent to [facility], and is as noted above and/or notable for: Heartburn, sometimes difficulty swallowing, headaches, difficulty sleeping, anxiety, generalized joint and muscle stiffness, generalized joint andmuscle pain including shoulders, neck, knees, elbows, hands. Patient Active Problem List Diagnosis ??? Crohn's disease of both small and large intestine (HRC) History reviewed. No pertinent past medical history. History reviewed. No pertinent surgical history. Outpatient Encounter Medications as of 06/04/2019 Medication Sig Dispense Refill ??? eszopiclone (LUNESTA) 3 MG tablet Take by mouth daily at bedtime. ??? folic acid 1 MG tablet Take 1 Tablet by mouth daily. 90 Tablet 3 ??? gemfibrozil (LOPID) 600 MG tablet Take 600 mg by mouth two times a day. ??? sulfaSALAzine (AZULFIDINE) 500 MG tablet 1 tablet daily for a week then increase to 2 tablets daily for a week then increase to 2 tablets twice daily thereafter 120 Tablet 4 ??? traMADol (ULTRAM) 50 MG tablet Take 150 mg by mouth daily at bedtime. No facility-administered encounter medications on file as of 06/04/2019. No Known Allergies Social History Substance and Sexual Activity Alcohol Use Not on file Social History Tobacco Use Smoking Status Never Smoker EXAM Blood pressure 127/78, pulse 77, weight 244 lb (110.7 kg). General Appearance: Pleasant, alert, appropriate appearance for age. No acute distress HEENT Exam: Normocephalic, atraumatic, clear sclera, moist oral mucosa, no ulcers Neck Exam: Supple, no masses or nodes. Chest/Respiratory Exam: Normal chest wall and respirations. Clear to auscultation. Cardiovascular Exam: Regular rate and rhythm, no murmur. Musculoskeletal Exam: Normal muscle bulk. Presence of diffuse point tenderness in his hands, shoulders, paraspinal muscles, SI joint, trochanteric area and calves bilaterally. There is mild synovial thickening in the 2nd and 3rd MCPs on the right, tenderness in the 2nd and 3rd PIPs on the left. Mild osteoarthritic changes in his DIPs and 1st CMC joints bilaterally. No joint effusion. Mild limitation range of motion in both shoulders. Patient cannot abduct more than 80??. Tenderness with abduction and internal rotation. Normal muscle strength in all 4 extremities. Skin: no rash Neurologic Exam: Nonfocal, normal gross motor movement, tone, and coordination. No tremor. Pain score & Rapid 3 score: see flow sheet if these were completed. Lab: Lab Results Component Value Date WBC 3.5 06/04/2019 RBC 4.59 06/04/2019 Hemoglobin 14.2 06/04/2019 HCT 41.9 06/04/2019 MCV 91.3 06/04/2019 RDW 13.5 06/04/2019 Platelets 297 06/04/2019 Lab Results Component Value Date AST (SGOT) 31 06/04/2019 Lab Results Component Value Date Creatinine 0.89 06/04/2019 Assessment and Plan: Reviewing recent laboratory data from [facility], normal CBC, normal ESR and CRP, negative RF, negative CCP, negative LOVE. Patient has been complaining of generalized joint pain. There is a history of inflammatory bowel disease/Crohn's disease/ ileitis for which patient has beentreated intermittently with a short course of systemic prednisone. On physical exam there is mild synovial thickening in the 2nd and 3rd MCPs on the right, tenderness in the 2nd and 3rd PIPs on the left. Presence of diffuse point tenderness including shoulders, paraspinal muscles, trochanteric area and ankles bilaterally. Mild osteoarthritic changes in both hands. In the context of history of inflammatory bowel disease there is suspicion for an inflammatory arthritis related to inflammatory bowel disease. Recommend doing blood work today to further investigate. Recommend doing x-rays of both hands and feet. Recommend evaluation by Gastroenterology to assess the disease activity of inflammatory bowel disease. Recommend a trial with sulfasalazine 1 tablet daily for a week then increase to 2 tablets daily the 2nd week then increase to 2 tablets twice daily thereafter. Discussed risks and benefits. Recommend folic acid daily. High risk medication use. Recommend blood work in 1 month and every 2-3 months thereafter. Presence of mild generalized osteoarthritis and also rotator cuff tendinopathy with impingement syndrome in both shoulders. Not a good candidate for systemic NSAID in the context of history of inflammatory bowel disease. Recommend physical therapy and strengthening exercise of the rotator cuff muscles. Provided patientswith a pamphlet for shoulder exercises Continue pain management as per PCP. Patient has had steroid injections in his shoulder in the past lasting only for 4 days There is a component of Chronic Pain Syndrome / Fibromyalgia overwhelming the symptoms. Chronic pain is common in patients with high levels of stress, depression, anxiety and PTSD. The treatment is challenging and multimodality approach is recommended including physical therapy, pain management, relaxation techniques, water therapy, yoga, octaviano chi, acupuncture, mental health practitioner. Recommend discussing with PCP adjuvant therapy like gabapentine, cymbalta, Lyrica, Sevella. Return to clinic in 3 months for follow up. Thank you for letting me participate in the care of this patient. Please don't hesitate to contact me if you have any questions. Dean Chi. Rheumatology [address] 06/04/2019 This note consists of symbols derived from keyboarding, and voice recognition software. As a result,wrong word or '[id number]' substitutions may have occurred due to the inherent limitations of voice recognition software. There may be errors in the script that have gone undetected. Please consider this when interpreting information found in this chart. ERTY DISPOSAL MANAGER documented in this encounter Plan of Treatment Not on filedocumented as of this encounter Results HLA B27 (06/04/2019 10:50 AM PROPERTY DISPOSAL MANAGER) athologist Signature HLA B27 Negative Negative 06/04/2019 [facility] 4:31 PM PROPERTY DISPOSAL MANAGER HOSPITAL Specimen Anatomical Collection Method / Collection Time Recei niranjan Time (Source) Location / Volume Laterality Blood Venipuncture / 06/04/2019 10:50 9 Unknown AM PROPERTY DISPOSAL MANAGER 10:50 AM PROPERTY DISPOSAL MANAGER Narrative [facility] - 06/04/2019 4:31 PM T This test was developed and the performance characteristics were determined by Laboratory. It has not been cleared or approved by t U.S. Food and Drug Administration. The FDA farooq s determined that such clearance or approv al is not necessary. Dean Chi MD LAB_1 Performing Organization Address City/State/ZIP Code Phon e Number [facility] [address] [place] [address] [facility] - Electrophoresis [place] To DEWEY,Serum (06/04/2019 10:50 AM PROPERTY DISPOSAL MANAGER) Component Value Ref Test Analysis Performed At Patholo gist Range Method Time Signature Total Protein 7.8 6.4 - 06/05/2019 [facility] 8.3 11:11 AM CENTRAL LAB g/dL PROPERTY DISPOSAL MANAGER Albumin 4.7 3.4 - 06/05/2019 [facility] 4.8 11:11 AM CENTRAL LAB g/dL PROPERTY DISPOSAL MANAGER Alpha 1 0.3 0.2 - 06/05/2019 [facility] 0.5 11:11 AM CENTRAL LAB g/dL PROPERTY DISPOSAL MANAGER Alpha 2 0.7 0.5 - 06/05/2019 [facility] 1.1 11:11 AM CENTRAL LAB g/dL PROPERTY DISPOSAL MANAGER Beta 1.0 0.6 - 06/05/2019 [facility] 1.1 11:11 AM CENTRAL LAB g/dL PROPERTY DISPOSAL MANAGER Gamma 1.1 0.7 - 06/05/2019 [facility] 1.6 11:11 AM CENTRAL LAB g/dL PROPERTY DISPOSAL MANAGER Monoclonal Laurent 0.0 <=0.0 06/05/2019 [facility] g/dL 11:11 AM CENTRAL LAB PROPERTY DISPOSAL MANAGER Interpretation No monoclonal 06/05/2019 [facility] protein is 11:11 AM CENTRAL LAB detected in the PROPERTY DISPOSAL MANAGER serum. Additional Not indicated. 06/05/2019 [facility] Testing 11:11 AM CENTRAL LAB PROPERTY DISPOSAL MANAGER Signed Out By [facility] 06/05/2019 [facility] 11:11 AM CENTRAL LAB Laboratory PROPERTY DISPOSAL MANAGER Specimen Anatomical Collection Method / Collection Time Recei niranjan Time (Source) Location / Volume Laterality Blood Venipuncture / 06/04/2019 10:50 9 Unknown AM PROPERTY DISPOSAL MANAGER 10:50 AM PROPERTY DISPOSAL MANAGER Dean Chi MD LAB_1 Performing Organization Address City/[facility]/ZIP Code Phon e Number [facility] [address] [address] ESR - Sedimentation Rate (06/04/2019 10:50 AM PROPERTY DISPOSAL MANAGER) Patholo gist Method Time Signature Sedimentation Rate 14 0 - 15 06/04/2019 [facility] mm/hr 12:30 PM PROPERTY DISPOSAL MANAGER [address] Specimen Anatomical Collection Method / Collection Time Recei niranjan Time (Source) Location / Volume Laterality Blood Venipuncture / 06/04/2019 10:50 9 Unknown AM PROPERTY DISPOSAL MANAGER 10:50 AM PROPERTY DISPOSAL MANAGER Dean Chi MD LAB_1 Performing Organization Address City/[facility]/ZIP Code Phon e Number [facility] [address] [place], [place] [address] [phone] CRP - C Reactive Protein (06/04/2019 10:50 AM PROPERTY DISPOSAL MANAGER) P athologist Signature C-Reactive <0.5 0.0 - 0.7 06/04/2019 [facility] Protein mg/dL 11:41 AM PROPERTY DISPOSAL MANAGER [address] Specimen Anatomical Collection Method / Collection Time Recei niranjan Time (Source) Location / Volume Laterality Blood Venipuncture / 06/04/2019 10:50 9 Unknown AM PROPERTY DISPOSAL MANAGER 10:50 AM PROPERTY DISPOSAL MANAGER Dean Chi MD LAB_1 Performing Organization Address [facility]/ZIP [facility] Phon e Number [facility] [address] [place], [place] [phone] [phone] (ABNORMAL) URIC - Uric Acid (06/04/2019 10:50 AM PROPERTY DISPOSAL MANAGER) P athologist Signature Uric Acid 8.6 (H) 3.5 - 7.2 06/04/2019 [facility] mg/dL 11:41 AM PROPERTY DISPOSAL MANAGER [address] Specimen Anatomical Collection Method / Collection Time Recei niranjan Time (Source) Location / Volume Laterality Blood Venipuncture / 06/04/2019 10:50 9 Unknown AM PROPERTY DISPOSAL MANAGER 10:50 AM PROPERTY DISPOSAL MANAGER Dean Chi MD LAB_1 Performing Organization Address [facility] Phon e Number [facility] [address] [place], [place] [address] [phone] XR Foot/Feet Arthritis (06/04/2019 10:43 AM PROPERTY DISPOSAL MANAGER) Anatomical Region Laterality Modality Lower Extremity, Foot Digital Radiograph y Specimen (Source) Anatomical Collection Method Collection Time Re ceived Time Location / / Volume Laterality 06/04/2019 10:23 AM PROPERTY DISPOSAL MANAGER Impressions 06/04/2019 11:53 AM PROPERTY DISPOSAL MANAGER COMPARISON: ??None. FINDINGS: ??AP arthritis series of [...] joint with prominent lateral osteophytes present. Dean MCDERMOTT XR Hand(s) Arthritis (06/04/2019 10:42 AM PROPERTY DISPOSAL MANAGER) Anatomical Region Laterality Modality Upper Extremity, Hand Digital Radiograph y Specimen (Source) Anatomical Collection Method Collection Time Re ceived Time Location / / Volume Laterality 06/04/2019 10:22 AM PROPERTY DISPOSAL MANAGER Impressions 06/04/2019 11:54 AM PROPERTY DISPOSAL MANAGER COMPARISON: ??None. FINDINGS: ??PA bilateral arthritis serie [...] Bone mineralization is within normal limits. Dean MCDERMOTT documented in this encounter Visit Diagnoses Diagnosis Inflammatory arthritis - Primary Unspecified inflammatory polyarthropathy Primary osteoarthritis involving multipl e joints Chronic pain syndrome Inflammatory arthritis Unspecified inflammatory polyarthropathy Primary osteoarthritis involving multipl e joints Chronic pain syndrome Inflammatory arthritis Unspecified inflammatory polyarthropathy Primary osteoarthritis involving multipl e joints Chronic pain syndrome documented in this encounter Care Teams Crisis Intervention Specialist Relationship Specialty Start Date End Date Silvestre Cortez MD PCP - General 05/21/191999 [place] [address] documented as of this encounter
--- OUTSIDE RECORDS SUMMARY | 2022-04-25 11:11 | XMS_ITS | Encounter Summary ---
:[address] Address [address] [place] [address] Care Team Providers Name Role Phone Silvestre Cortez MD Primary Care Provider Reason for Referral Consult/Transfer Care (Routine) - Closed Specialty Diagnoses / Procedures Referred By Contact Refer red To Contact Diagnoses Chronic pain syndrome Dean Chi MD [address] [facility] [place] [place] [address] Referral ID Status Reason Start Date Expiration Date Visits Requ ested Visits Authorized [id number] Closed 09/13/2019 03/11/2020 1 1 Scheduling Instructions This order is your clinician's recommend ation for a service and is not an insurance referral which authorizes payment. The r ecommended service and/or location may not be covered by your insurance plan. Please c all the number on your insurance card to find out your specific benefits and coverage for the recommended services and/or location. If you need help scheduling the recommen ded services, please ask your clinician's staff to assist you. herapies (Routine) - Closed Specialty Diagnoses / Procedures Referred By Contact Refer red To Contact Occupational Therapy Diagnoses Chronic pain syndrome Dean Chi MD [id number] [address] [place] [id number] Fax: Referral ID Status Reason Start Date Expiration Date Visits Requ ested Visits Authorized [id number] Closed 09/13/2019 11/12/2019 1 1 Scheduling Instructions Your provider has recommended an appoint ment with [facility]. You may call [phone] to schedule yo appointment. If you do not schedule an appointment within the next 1 to 3 busin ess days, we will call you to help arrange your appointment. We suggest you call [facility] [employer] insurance company about your coverage and benefits for this appointme nt. F SORTER Reason for Visit Reason Comments Follow-up Encounter Details Date Type Department Care Team Description 09/13/2019 Office Visit [facility] [address] Dean Chi MD Inflammatory arthritis (Primary Dx); Rheumatology [address] Chronic pain syndrome; [address] Primary osteoarthritis [place] [address] [id number] Social History Tobacco Use Types Packs/Day Years Used Date Smoking Tobacco: Never Sex Assigned at Date Recorded Not on file documented as of this encounter Last Filed Vital Signs Vital Sign Reading Time Taken Comments Blood Pressure 141/85 09/13/2019 10:28 AM PROOF SORTER Pulse - - Temperature 36.7 ??C (98 ??F) 09/13/2019 10:28 AM PROOF SORTER Respiratory Rate - - Oxygen Saturation - - Inhaled Oxygen Concentration - - Weight - - Height - - Body Mass Index - - documented in this encounter Patient Instructions Patient InstructionsDean Chi MD - 09/13/2019 10:30 AM CST Images from the original note were not included. There is a questionable diagnosis of inflammatory arthritis. At this time I would recommend that we continue methotrexate for a full 3 months. If no benefit at the end of 3 months and will discontinue methotrexate. There is a component of chronic pain syndrome overwhelming the symptoms. Fibromyalgia is common in patients with high levels of stress, depression, anxiety and PTSD. The treatment is challenging and multimodality approach is recommended including physical therapy, pain management, relaxation techniques, water therapy, yoga, octaviano chi, acupuncture, mental health practitioner. Recommend establishing care with the PCP. Recommend lifestyle renewal program here at [facility]. Will give referral to Pain Clinic. Recommend a trial with Cymbalta 30 mg daily and later on can be up titrated to 60 mg daily if tolerated. Recommend giving an update in 6 weeks in regards to methotrexate and Cymbalta. At that time will decide on the next best step and in regards to the follow-up appointment. In the meantime recommend establishing care with PCP. Fibromyalgia What is it? Fibromyalgia is a syndrome where the main symptoms are fatigue and widespread musculoskeletal pain, not explained by other causes. Typically, the pain is on both sides of the body and above and below the waist. If the pain is more localized to a particular area of the muscles and not all over, it is called myofascial pain. The pain is usually in the muscles, but can also be in the joint areas, where the muscles attach. Visible swelling and heat in the joint areas are not features of fibromyalgia (although sometimes they may feel that way to you). Many patients with fibromyalgia will have at least 11 of 18 of the tender points noted below. The common tender points of fibromyalgia include neck, upper back, sternal area, elbows, buttock, side of the hips, and knees. Other symptoms commonly found in patients with fibromyalgia may include: ??? Disturbed and poor quality sleep - people with fibromyalgia often do not get good ???restorative?? sleep, and may also have problems with leg cramps and restless legs. ??? Depression, anxiety and other mood changes ??? Numbness and tingling in extremities, called paresthesias (other causes such as neurological diseases may need to be ruled out) ??? Irritable bowel syndrome - constipation, diarrhea, bloating, abdominal cramping, often exacerbated by stress, and not explained by other bowel disorders. ??? Irritable bladder ??? Dry eyes and mouth ??? Headaches and facial pain - pain at the temporomandibular joint (TMJ) is common, as are tension and other types of headaches. ??? Heightened sensitivity - some patients will have an increased sensitivity to bright lights, loudnoises, odors such as perfumes, and even light touch. ??? Difficulty concentrating ??? Chest pain, usually from the rib cage and muscles. ??? Dizziness ??? Painful menstrual cramps Cause The exact cause of fibromyalgia is as yet not known. However, some research suggests that up to halfof cases of fibromyalgia may be associated with small fiber neuropathy. This is not too surprising, since many of the medications used for fibromyalgia are also used for neuropathy. Many other factors probably play a role. Recent research has suggested that genetics may contribute. Just as there are people whose genes result in ???strong?? bones or ???weak?? bones, there are people who have abnormalities in their pain processing (the way nerves respond to pain) which may predispose to developing fibromyalgia. External factors also can contribute to developing fibromyalgia. For example, if you beco me depressed, the depression can result in increased musculoskeletal pain. When the depression is treated, the pain can improve. Sometimes the chronic pain of fibromyalgia can increase the likelihood of developing depression, and in that case it is equally important to treat the depression. Poor sleepfor any extended period of time is another factor in the development of fibromyalgia. Healthy peoplewho are sleep deprived often begin to ???ache?? in their muscles. This can then result in a viciouscycle where pain further disturbs sleep which results in even more pain. Many factors like stress, depression, and lack of exercise can affect sleep quality. Frequent ???hot flashes?? during menopause can significantly affect sleep. Sleep can also be affected by poor ???sleep hygiene?? . For example,activities like reading in bed, eating in bed, watching TV in bed, etc., can result in ???confusing?? the body about the purpose of being in bed. Avoiding such activities in bed can allow for better sleep quality. Regular aerobic exercise may be preventative to developing fibromyalgia because it improves sleep and counteracts stress and depression. Along the same lines, lack of aerobic exercise can contribute to the development of fibromyalgia. Other conditions which cause pain including rheumatoidarthritis, connective tissue diseases like lupus and Sjogren???s syndrome can be associated with fibromyalgia. Sometimes a severe trauma (physical or emotional) can predispose to developing fibromyalgia. Risk factors ??? Female gender - Well over 90% of patients with fibromyalgia are women. ??? Younger age - It is unusual to have the first presentation of fibromyalgia occur after age 65. ??? Poor sleep - From whatever cause (pain, stress, restless legs, sleep apnea, legs cramps) can contribute to developing fibromyalgia. ??? Family history - If siblings or parents have had fibromyalgia, this may increase your risk. ??? 2% of the [place] population or 3-6 million people have fibromyalgia Evaluation Usually the laboratory and x-rays findings in fibromyalgia are normal. Some laboratory tests and imaging tests may be considered to rule out other potential causes of pain. The patient???s history andthe physical examination are the most important clues to diagnosing fibromyalgia. TREATMENT Health care providers A number of different providers may assist in the care of your fibromyalgia. Your primary care provider will usually be familiar with fibromyalgia and many of its treatments. Physical medicine and rehabilitation doctors are also experts in the treatment of non-inflammatory musculoskeletal pain and can be helpful in prescribing specific physical therapy regimens. Since many cases of fibromyalgia havesmall fiber neuropathy, visiting with a Neurologist about that may sometimes be helpful. Rheumatologists often assist with ruling out other causes of musculoskeletal pain and making recommendations fortreatment in difficult cases. Other providers such as doctors of chiropractic, physical therapists, o ccupational therapists, acupuncturists, and other alternative providers often play a role. Some psychologists have expertise in helping patients better manage chronic pain. Txa-xoobqiafae-sqlea treatments An exercise program is an essential part of counteracting fibromyalgia. You need to know a number ofthings before beginning a program. The best types of exercise to consider are low-impact aerobic activities. Aerobic means getting you hear rate up to 60-80% of maximum (220 minus age). For example, ifyou are 40 years old, the goal heart rate would be 0.6 (220-40) to 0.8(220-40), or 108 to 144. The goal is to find an activity that allows you to maintain this heart rate for 20-30 minutes at least 3 days per week. The best forms of exercise for fibromyalgia are walking, biking, swimming, and water aerobics. Probably the least imposing way to start is a water aerobics program in a heated pool. Many community pools such as the [employer] offer ???fibrocize?? water aerobics programs. A very important pointto remember is to start your exercise program slowly and gradually increase it. Try not to make the mistake of going out the first day and doing a hard workout for 30 minutes. Many patients will feel so poorly after this that they never go back. Start very slowly and gradually increase. It is important to remember, however, that many people will have an increase in pain for several weeks before exercise begins to decrease the pain. Try to persevere through this period. Exercises that cause significant postexercise pain are probably too intense. Other forms of exercise that include muscle strengthening like Pilates and Octaviano Chi may be beneficial. Cognitive behavioral therapy is another very helpful intervention for fibromyalgia. Unfortunately, there is no ???magic bullet?? pill to take away all the symptoms of fibromyalgia. Therefore, learninghealthy techniques to better manage pain is imperative. Meditation and relaxation techniques providea way to refocus your mind away from the pain and cope better with it. This type of treatment can also help reduce stress. Occupational therapists at [facility] offer a program called the Lifestyle renewal program (see information on last page), where you can learn these techniques, and the majority of patients report that this is helpful. Pain psychologists at [facility] are another helpful resource. Cathy Aguirre, PhD, Nat Centeno M.Ed, LP, Psychologist at [facility] [Chronic pain (headaches, fibromyalgia, etc.) and irritable bowel syndrome - evaluation and treatment], and Amrit Martinez, Ph.D., LP, Psychologist at [facility] (Chronic pain evaluation). Patients may schedule appointments as usual by contacting the Mental Health Department at . An intake counselor will request information on the presenting problem and referral source. A variety of other modalities are helpful for some patients. Massage can help loosen and relax tightmuscles. Acupuncture may help address abnormal pain processing and has been shown in a randomized trial to provide decreased pain. On a practical note, massage and acupuncture are not routinely coveredthrough insurance. Physical therapy with gentle stretching and muscle strengthening can help in someinstances, as can skin care technician. Warm water pool physical therapy at places like the [employer] [place] and [facility] can be prescribed by your physician, if necessary. There are also a number of fibromyalgia support groups. Many patients ask if specific dietary modifications can help, and some patients have found for themselves that certain foods or diets can help or hinder with their pain. To date, there are no specific trials which have shown that one specific food or diet is helpful. However, weight loss can be helpful, and eating a balanced diet to help lose a few pounds is usually beneficial. Although no controlled trials support its recommendation, some patients report that getting regular exposure to morning sunlight can boost mood and wellbeing. Medications Because fibromyalgia is common, more and more medications are being studied and developed to help. While no medicine is yet curative, they can be a useful part of the treatment. The medications for fibromyalgia can in general be thought of to work on one of several areas. Some help with restoring good sleep. Anti- depressants can help treat depression, if it is present. Others work on pain. And some work on several of these areas. Medications which you and your doctor may consider include, but are not limited to: ??? Acetaminophen (Tylenol) - This is a mild, but safe analgesic when taken in doses of 1000 mg, three times daily. ??? NSAIDs (Nonsterioidal anti-inflammatory drugs) - Medications like ibuprofen (Advil) and naproxen(Aleve) sometimes offer some pain relief. They should be taken with food to avoid stomach irritationand not be continued if they offer no benefit. ??? Amitriptyline (Elavil) - Technically an antidepressant, this medicine when used in low doses is helpful for improving sleep. Typical dose would be 10 - 100 mg at night. Side effects could include dry mouth and grogginess. ??? Nortriptyline (Pamelor) - Technically an antidepressant, this medicine when used in low doses ishelpful for improving sleep. Typical dose would be 10 - 100 mg at night. Side effects could include dry mouth and grogginess. ??? Trazodone (Deseryl) - Technically an antidepressant, this medicine when used in low doses is helpful for improving sleep. Typical dose would be 25-150 mg at night. Side effects could include dry mouth and grogginess. ??? Doxepin (Sinequan) - Technically an antidepressant, this medicine when used in low doses is helpful for improving sleep. Typical dose would be 10 - 100 mg at night. Side effects could include dry mouth and grogginess. ??? Milnacipran (Savella) - This is a newer generation of antidepressant, which has shown benefits not only for depression, but also for improving pain, even in those without depression. It increases both serotonin and norepinephrine in the brain. It is now FDA approved for fibromyalgia. Typical dosing is 12.5 - 200 mg/day. ??? Duloxetine (Cymbalta) - This is a newer generation of antidepressant, which has shown benefits not only for depression, but also for improving pain, even in those without depression. It increases both serotonin and norepinephrine in the brain. It is now FDA approved for fibromyalgia. ??? Tramadol (Ultram) or combined with Tylenol (Ultracet) - This medication is primarily for pain. Typical dose would be 50 - 100 mg up to 4 times daily. It should be avoided if you have a history of aseizure disorder. Side effects could include nausea, sedation, and constipation. Also, it should be used cautiously in patients already taking medications such as sertraline (Zoloft), paroxetine (Paxil), fluoxetine (Prozac), citalopram (Celexa), escitalopram (Lexapro), venlafaxine (Effexor), duloxetine (Cymbalta). ??? Pramipexole (Mirapex) - This medication was first used to treat Parkinson???s disease and the Restless Leg Syndrome. Recent studies have shown that it can reduce pain levels in fibromyalgia. It hassurprisingly few side effects, but can cause nausea, transient anxiety, or weight loss. Typical doseis starting at 0.25 mg daily and gradually increasing to a maximum of 4.5 mg at night. ??? Gabapentin (Neurontin) - First developed to treat seizures, gabapentin helps block certain nervetransmissions and can reduce nerve pain called neuropathy. It can have some sedative properties and improve sleep in selected patients. Typical dose would be starting at 100 mg at night and gradually increasing as tolerated to as high as 800 mg three times daily. There is now a published trial suggesting that about half of patients get at least a 30% improvement in pain. Sleep can be significantly improved with gabapentin also. ??? Pregabalin (Lyrica) - This is a newer generation cousin of gabapentin, but is more expensive. Typically, the starting dose is 25 mg daily, increasing as tolerated to 150 mg three times daily as tolerated. Lyrica is FDA approved for fibromyalgia. ??? Muscle relaxers: Cyclobenzaprine (Flexeril), carisoprodol (Soma), methocarbamol (Robaxin), metaxalone (Skelaxin), tizanidine (Zanaflex) can be useful to relax to help with relaxation of tight muscles and because of their natural sedative effects can help with sleep also. ??? Opioid pain medicines (codeine, hydrocodone, oxycodone, morphine, etc) are typically NOT recommended as part of the medication program in fibromyalgia. They tend to not control the pain, creating aneed for more and more medication. Some pain specialists will consider their use in selected circumstances. Procedures Sometimes, several very tender muscular areas called trigger points can be injected by your Door Liner Helper or other providers with a mixture of local anesthetic and a small amount of cortisone. These are called trigger point injections and can often help provide relief to local areas of particularly sore muscles. Prognosis Fibromyalgia is a chronic condition, but can sometimes go away. The goal is to manage it through all of the interventions above. Of importance, it is not typically a progressive or crippling disorder and does not impair function of internal organs. Resources ??? National Fibromyalgia Association 092 706 9967 www.fmaware.org ??? National [place] of Arthritis and Musculoskeletal and Skin Diseases 588 114 4502 www.niams.nih.gov ??? National Center for Complementary and Alternative Medicine 053 394 1211 www.[facility].nih.gov ??? [facility] (Water aerobics, heated pool to 91 degrees) [address] [place] [address]; charges apply. What else can be tried? Sometimes, for a minority of patients, the above interventions do not result in control of fibromyalgia. In these cases, you should consider a chronic pain program. Several of these and additional resources are listed below: [facility]), a nursing practice for fibromyalgia patients, has opened at [address] [place] [address], to serve [facility] clientele. Yesenia Friedman, RN, BROIL[employer] COOK and Lu Soto MS, RN, are the founders and co-owners. [phone] [facility]: may offer biofeedback, physical therapy, warm water pool, chronic pain rehabilitation programs; www.[employer].org ??? [facility] [phone] [facility]4 [place] [address] Chronic pain rehab program: [email or web address] ??? [facility] [place] [phone] [address] [place] [address] ??? [facility] [place] [phone] [address] [place] [address] ??? [facility] [place] [phone] 146 [place] [address] Aquatic therapy, Denisse Wong [phone] [facility], [email or web address]/, [address] [address], . [facility] ([facility]) , [address] [place] [address]; Other locations including [place]. [facility] [phone] [facility]7 [facility], [address]th [place] [address] [facility] [address] Krzysztof Crespo 7[address] [facility] [address] [email or web address] [facility] - they focus more on back pain, but offer cognitive behavioral therapy. Maddi Jenkins [facility] [phone] [facility] [phone] [phone] www.[email or web address] (mainly physical and occupational therapy) [facility] (biofeedback, acupuncture, nutrition): [phone] [facility] [phone], [address] [facility], [address], [place] [address] Julito George MD [phone], soil fertility extension specialist [address] [facility], [facility]5 [facility], [place] [address] [phone] [facility] (will treat fibromyalgia and chronic pain syndrome in additionto head & neck disorders; also have [employer] equipment for chronic back pain). [email or web address] ??? [place]: [address] [facility] [address] , [address], [address]; [phone] ??? [place]: [address] [facility], [address], [address]; [phone] ??? [place]: [address], [address]; [phone] ??? [place]: [address] [facility] [address], [address]; [phone] Lifestyle Renewal Program - At [facility] The LifeStyle Renewal Program is an integrated program provided by Occupational Therapists to help people work with their symptoms from a variety of treatment techniques. It is customized for each patient. Research shows that an approach which encompasses social and psychological influences as well asphysical factors is effective for decreasing symptoms and improving quality of life. A holistic approach can ease symptoms and improve quality of life. Location: [place] Providers: Occupational Therapists with specialty training. Program: The LifeStyle Renewal Program is specifically tailored for each patient. This specialty program can be beneficial for a wide variety of symptoms and diagnoses, including, but not limited to: Chronic pain Cancer Asthma Depression/Anxiety Myofascial pain syndrome Chronic Fatigue Syndrome Headache/ Migraine Fibromyalgia Low back pain Irritable Bowel Syndrome Rheumatoid Arthritis Other stress related problems Our Program Focus: 1. Deal with the underlying source of pain 2. Establish a partnership between therapist and patient 3. Increase understanding - provide education 4. Use ngok-vhgn-rmicea therapies to reframe pain/symptom experience 5. Modify behaviors to improve function 6. Relieve stress 7. Set up support systems 8. Increase physical activity 9. Improve sleep Education is provided in the areas of pacing, exercise, relaxation, sleep hygiene, body mechanics, postural awareness, ergonomics, Qigong, Healing Touch, problem solving and adaptive equipment. How to Contact: General information/scheduling F SORTER documented in this encounter Progress Notes Dean Chi MD - 09/13/2019 10:30 AM CST Rheumatology Follow up Note Chief Complaint Patient presents with ??? Follow-up HPI: Lawson Whitley is a 44 y.o. male with medical history as stated below including a history of inflammatory bowel disease/ileitis/Crohn's disease was recently seen with a chief complaint of joint pain predominantly in his hands, shoulders, hips and feet which has been in for almost a year. A suspicion for inflammatory bowel disease related inflammatory arthritis was raised. In the last visit recommendation for a trial with sulfasalazine 2 tablets twice daily was made. A few weeks later patient discontinued sulfasalazine secondary to increased headaches. He had to go to the ER for the headaches and it was told that this may be related to the new medication. Sulfasalazine was discontinued and it was recommended a trial of methotrexate. Patient Is coming today for follow-up accompanied by his . Does not sleep well, wakes up tired in the morning. Complains of generalized arthralgia and myalgia. During the day when he is physically active he forgets about the symptoms and is less bothersome. Denies any red hot swollen joints. Denies any skin rash. Previously could not tolerate sulfasalazine secondary to increase headaches. Took a short course of prednisone with no significant improvement in his symptoms. Recently was started on methotrexate 8 tablets once a week. Patient has been taking it for the last 6 weeks with no significant improvement. Patient is frustrated about his symptoms. Complains of pain in the big toe specially when he uses his working boots with metal covers for the toes. Patient does not have a PCP at this time. He was not happy with previous PCP and his looking to establish care with a new PCP. Patient is accompanied by his . ROS: Comprehensive review of systems form filled out by the patient for today's visit was reviewed, sent to [facility], and is as noted above and/or notable for: Shortness of breath, generalized weakness, headaches, upset stomach, heartburn, anxiety, problems sleeping. Patient Active Problem List Diagnosis ??? Crohn's disease of both small and large intestine ([facility]C) History reviewed. No pertinent past medical history. History reviewed. No pertinent surgical history. Outpatient Encounter Medications as of 09/13/2019 Medication Sig Dispense Refill ??? DULoxetine (CYMBALTA) 30 MG capsule Take 1 Capsule by mouth daily. 30 Capsule 3 ??? eszopiclone (LUNESTA) 3 MG tablet Take by mouth daily at bedtime. ??? folic acid 1 MG tablet Take 1 Tablet by mouth daily. 90 Tablet 3 ??? gemfibrozil (LOPID) 600 MG tablet Take 600 mg by mouth two times a day. ??? methotrexate 2.5 MG tablet 4 tablets once a week for the 1st 2 weeks then increase to 8 tablets once a week thereafter 32 Tablet 3 ??? traMADol (ULTRAM) 50 MG tablet Take 150 mg by mouth daily at bedtime. ??? [DISCONTINUED] predniSONE (DELTASONE) 5 MG tablet 30 mg daily for a week then decrease by 5 mg every week until stopped. 150 Tablet 0 No facility-administered encounter medications on file as of 09/13/2019. No Known Allergies Social History Substance and Sexual Activity Alcohol Use None Social History Tobacco Use Smoking Status Never Smoker EXAM Blood pressure (!) 141/85, temperature 98 ??F (36.7 ??C), temperature source Oral. General Appearance: Pleasant, alert, appropriate appearance for age. No acute distress HEENT Exam: Normocephalic, atraumatic, clear sclera, moist oral mucosa, no ulcers Neck Exam: Supple, no masses or nodes. Chest/Respiratory Exam: Normal chest wall and respirations. Clear to auscultation. Cardiovascular Exam: Regular rate and rhythm, no murmur. Musculoskeletal Exam: Normal muscle bulk. No signs of active synovitis. No joint effusion. Full range of motion in all 4 extremities. Normal muscle strength in all 4 extremities. Skin: no rash Neurologic Exam: Nonfocal, normal gross motor movement, tone, and coordination. No tremor. Pain score & Rapid 3 score: see flow sheet if these were completed. Lab: Lab Results Component Value Date WBC 4.1 09/11/2019 RBC 4.27 (L) 09/11/2019 Hemoglobin 13.7 09/11/2019 HCT 40.7 09/11/2019 MCV 95.3 09/11/2019 RDW 15.6 (H) 09/11/2019 Platelets 359 09/11/2019 Lab Results Component Value Date AST (SGOT) 31 06/04/2019 Lab Results Component Value Date Creatinine 1.00 09/11/2019 Assessment and Plan: Recent blood work, normal kidney function, uric acid 8.6, normal CBC, normal inflammatory markers ESR and CRP, mild elevation of LFT 56, normal AST, normal SPEP, negative HLA B27. His previous rheumatologic workup done at [facility] showed negative RF and CCP, negative LOVE. There is a questionable diagnosis of inflammatory arthritis. At this time I would recommend that we continue methotrexate for a full 3 months. If no benefit at the end of 3 months will discontinue methotrexate. There is a component of chronic pain syndrome overwhelming the symptoms. Fibromyalgia is common in patients with high levels of stress, depression, anxiety and PTSD. The treatment is challenging and multimodality approach is recommended including physical therapy, pain management, relaxation techniques, water therapy, yoga, octaviano chi, acupuncture, mental health practitioner. Recommend establishing care with the PCP. Recommend lifestyle renewal program here at [facility]. Will give referral to Pain Clinic. Cannot take NSAIDs secondary to colitis. Recommend a trial with Cymbalta 30 mg daily and later on can be up titrated to 60 mg daily if tolerated. Recommend giving an update in 6 weeks in regards to methotrexate and Cymbalta. At that time will decide on the next best step and in regards to the follow-up appointment. In the meantime recommend establishing care with a new PCP. High risk medication use. Will do blood work today to check kidney and liver function. Repeat blood work in 2 months. Recent blood work shows mild elevation of ALT which was prior to starting the sulfasalazine or the methotrexate. Will monitor closely during the time on treatment. Dean Chi. Rheumatology [facility] 09/13/2019 This note consists of symbols derived from keyboarding, and voice recognition software. As a result,wrong word or '[id number]' substitutions may have occurred due to the inherent limitations of voice recognition software. There may be errors in the script that have gone undetected. Please consider this when interpreting information found in this chart. 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
--- OUTSIDE RECORDS SUMMARY | 2022-04-25 11:11 | XMS_ITS | Encounter Summary ---
:1975 Author Organization [facility] Address [address] [place] [address] Care Team Providers Name Role Phone Unavailable Primary Care Provider Unavailable Reason for Visit Reason Comments Back Pain pt presents to ED with compl aint of left lower back pain as well as left side pain. Back pain began m onday and side pain presented this evening around 1600. Pain is sharp a nd shooting. Has not taken any OTC medication. Encounter Details Date Type Department Care Team Description 08/16/2017 Emergency [facility] Moises Desai Col itis Crohn's (HCC) (Primary Dx); Department M.D. Sciatica Left [address] [place] [id number] Social History Tobacco Use Types Packs/Day Years [...] or relatives? How often do you attend synagogue or More than 4 times per year 09/15/2021 taoist services? Do you belong to any clubs or Yes 09/15/2021 organizations such as synagogue groups, unions, fraternal or athletic groups, or [...] at Date Recorded Male 09/15/2021 9:14 AM LIFE SKILLS COORDINATOR documented as of this encounter Last Filed Vital Signs Vital Sign Reading Time Taken Comments Blood Pressure 117/86 08/16/2017 11:45 PM LIFE SKILLS COORDINATOR Pulse 80 08/16/2017 11:15 PM LIFE SKILLS COORDINATOR Temperature 37 ??C (98.6 ??F) 08/16/2017 11:45 PM LIFE SKILLS COORDINATOR Respiratory Rate 16 08/16/2017 8:06 PM LIFE SKILLS COORDINATOR Oxygen Saturation 97% 08/16/2017 9:15 PM LIFE SKILLS COORDINATOR Inhaled Oxygen Concentration - - Weight 102 kg (225 lb) 08/16/2017 8:08 PM LIFE SKILLS COORDINATOR Height 185.4 cm (6' 1) 08/16/2017 8:08 PM LIFE SKILLS COORDINATOR Body Mass Index 29.69 08/16/2017 8:08 PM LIFE SKILLS COORDINATOR documented in this encounter Discharge Instructions AttachmentsThe following attachments cannot be sent through Care Everywhere. Sciatica [id number] ([place])documented in this encounter Medications at Time of Discharge Medication Sig Dispensed Refills Start Date End Date HYDROcodone-acetaminophe Take 1 tablet by 10 tablet 0 08/1608/23/2017 n (for_NORCO) 5-325 mg mouth every 4 (four) per tablet hours as needed for pain for up to 7 days. predniSONE Take 2 tablets (40 mg 10 tablet 0 08/16/2017 (for_DELTASONE) 20 mg total) by mouth daily tablet for 5 days. documented as of this encounter ED Notes Moises Desai M.D. - 08/16/2017 11:51 PM CST Images from the original note were not included. SUBJECTIVE CHIEF COMPLAINT/REASON FOR VISIT Back Pain (pt presents to ED with complaint of left lower back pain as well as left side pain. Back pain began monday and side pain presented this evening around 1600. Pain is sharp and shooting. Has not taken any OTC medication. ) HISTORY OF PRESENT ILLNESS 42-year-old male presents to the emergency department for evaluation of left back as well as left abdominal pain. The patient states his left back pain began 3 days ago, and he states this was not an uncommon pain for him. 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 He states the pain goes down along his left lateral legand underneath his left knee cap. It is a 6- 7/10 severity. It is constant in nature, though is slightly worse with movement. He does state that his bowels have been more loose slightly, as had some small amount of blood contained within that which is bright red in nature which he attributed to hemorrhoids. He denies any hematuria, urinary frequency or urgency. He has taken no medication for this, andrather comes to the emergency department for evaluation REVIEW OF SYSTEMS Constitutional: Negative for activity change, appetite change, chills, fatigue and fever. HENT: Negative for congestion, ear discharge, ear pain, rhinorrhea, sinus pressure and sore throat. Eyes: Negative for pain and visual disturbance. Respiratory: Negative for cough, chest tightness and shortness of breath. Cardiovascular: Negative for chest pain, palpitations and leg swelling. Gastrointestinal: Positive for abdominal pain, blood in stool and diarrhea. Negative for abdominal distention, constipation, nausea and vomiting. Endocrine: Negative for cold intolerance and heat intolerance. Genitourinary: Negative for dysuria, frequency and urgency. Musculoskeletal: Positive for back pain and extremity pain. Negative for arthralgias and joint swelling. Skin: Negative for rash. Neurological: Negative for dizziness, weakness, light-headedness and headaches. Psychiatric/Behavioral: Negative for confusion. OBJECTIVE Initial Vitals Temperature Pulse Rate Heart Rate Resp Rate Blood Pressure SpO2 08/16/17200508/16/17200508/16/17 2345 08/16/17200508/16/17200508/16/172005 36.9 ??C 96 89 16 (!) 136/92 97 % Pain Score 01/24/18 2006 7 PHYSICAL EXAMINATION Abdominal: Soft. Normal appearance and bowel sounds are normal. There is tenderness in the left lower quadrant. There is no rigidity, no rebound and no guarding. Musculoskeletal: Legs: Area outlined is region the patient states a characterized by pain. This is the pain that is exacerbated with movement, and worsens with palpation of the left buttock. ASSESSMENT/PLAN Impression and Plan Impression: Colitis, sciatica left Plan: Prednisone, pain control with Tylenol as needed., consider chiropractor care for treatment of sciatica/back pain. Reviewed and summarized previous medical records including: Lab results. I personally reviewed the lab result(s) and my interpretation is: Normal Radiology results: Personally reviewed the radiology image and Reviewed the radiology report. Radiology interpretation: Normal ED Course Final Diagnoses: as of Aug 17 45 Colitis Crohn's (HCC) Sciatica Left Moises Desai M.D. 08/18/17 0244 SKILLS COORDINATOR documented in this encounter Plan of Treatment Not on filedocumented as of this encounter Procedures Procedure Name Priority Date/Time Associated Comments Diagnosis CT ABDOMEN PELVIS RAD - Semiurgent 08/16/2017 9:51 Res ults for this WITH IV CONTRAST (Fast; most ED PM LIFE SKILLS COORDINATOR procedure are in patients; some the results inpatients) section. CBC WITH STAT 08/16/2017 9:21 Results for this DIFFERENTIAL, B PM LIFE SKILLS COORDINATOR procedure ar e in the results section. BASIC METABOLIC STAT 08/16/2017 9:21 Results f or this PANEL, S/P PM LIFE SKILLS COORDINATOR procedure are i n the results section. C-REACTIVE PROTEIN STAT 08/16/2017 9:19 Result s for this (CRP), S/P PM LIFE SKILLS COORDINATOR procedure are i n the results section. URINALYSIS WITH STAT 08/16/2017 8:20 Results f or this MICROSCOPIC IF PM LIFE SKILLS COORDINATOR procedure are in INDICATED, U the results section. MICROSCOPIC MANUAL STAT 08/16/2017 8:20 Result s for this PM LIFE SKILLS COORDINATOR procedure are i n the results section. documented in this encounter Results CT Abdomen Pelvis with IV Contrast (08/16/2017 9:51 PM LIFE SKILLS COORDINATOR) Anatomical Region Laterality Modality Abdomen, Pelvis N/A Computed Tomography Specimen (Source) Anatomical Collection Method Collection Time Re ceived Time Location / / Volume Laterality 08/16/2017 9:55 PM LIFE SKILLS COORDINATOR Impressions 08/16/2017 9:59 PM LIFE SKILLS COORDINATOR IMPRESSION: 1. Normal-appearing appendix. 2. No acute intra-abdominal/pelvic patho logy, CT of the abdomen and pelvis is within normal limits. No CT findings to explain the patient's symptoms of left lower quadrant abdominal pain. Narrative 08/16/2017 9:59 PM LIFE SKILLS COORDINATOR EXAM: CT ABDOMEN PELVIS WITH IV CONTRAST COMPARISON: 08/18/2016 FINDINGS: Lung bases: Unchanged calcified granulom a in the right middle lobe. No acute airspace opacity in the bilateral bases. Liver: No focal lesion identified. Olinda l enhancement. Gallbladder and Biliary Tree: No evidenc e of cholelithiasis. No biliary dilatation. Spleen: No focal lesion is identified. N o evidence of splenomegaly. Pancreas: Normal enhancement. No focal l esion or ductal dilatation. Adrenal glands: No focal lesion identifi ed. Kidneys, ureters, and bladder: Normal en hancement. No evidence of hydronephrosis or hydroureter. No suspicious mass lesio n. No renal or ureteral calculi. GI tract: No evidence of bowel obstructi on. Normal-appearing appendix in the right lower quadrant containing bubbles of air. There is no free intraperitoneal air, fr ee fluid, fluid collection, or abscess. Procedure Note Lul Oscar M.D. - 08/16/2017Form atting of this note might be different from the original. EXAM: CT ABDOMEN PELVIS WITH IV CONTRAST COMPARISON: 08/18/2016 FINDINGS: Lung bases: Unchanged calcified granulom a in the right middle lobe. No acute airspace opacity in the bilateral bases. Liver: No focal lesion identified. Olinda l enhancement. Gallbladder and Biliary Tree: No evidenc e of cholelithiasis. No biliary dilatation. Spleen: No focal lesion is identified. N o evidence of splenomegaly. Pancreas: Normal enhancement. No focal l esion or ductal dilatation. Adrenal glands: No focal lesion identifi ed. Kidneys, ureters, and bladder: Normal en hancement. No evidence of hydronephrosis or hydroureter. No suspicious mass lesio n. No renal or ureteral calculi. GI tract: No evidence of bowel obstructi on. Normal-appearing appendix in the right lower quadrant containing bubbles of air. There is no free intraperitoneal air, fr ee fluid, fluid collection, or abscess. IMPRESSION: 1. Normal-appearing appendix. 2. No acute intra-abdominal/pelvic patho logy, CT of the abdomen and pelvis is within normal limits. No CT findings to explain the patient's symptoms of left lower quadrant abdominal pain. Moises Desai M.D. IMG CT PROCEDURES (ABNORMAL) CBC with Differential (08/16/2017 9:21 PM LIFE SKILLS COORDINATOR) [facility] Method Time Signature Hemoglobin 13.3 13.2 - 08/16/2017 [facility] 16.6 g/dL 9:35 PM [facility] Hematocrit 39.6 38.3 - 08/16/2017 [facility] 48.6 % 9:35 PM [facility] Erythrocytes 4.21 (L) 4.35 - 08/16/2017 [facility] 5.65 9:35 PM LIFE SKILLS COORDINATOR HEALTH x10(12)/L [facility] MCV 94.1 78.2 - 08/16/2017 [facility] 97.9 fL 9:35 PM [facility] RBC Distrib Width 14.1 11.8 - 08/16/2017 [facility] 14.5 % 9:35 PM [facility] Platelet Count 263 135 - 317 08/16/2017 [facility] x10(9)/L 9:35 PM [facility] Leukocytes 5.3 3.4 - 9.6 08/16/2017 [facility] x10(9)/L 9:35 PM [facility] Neutrophils 2.29 1.56 - 08/16/2017 [facility] 6.45 9:35 PM LIFE SKILLS COORDINATOR HEALTH x10(9)/L [facility] Lymphocytes 2.48 0.95 - 08/16/2017 [facility] 3.07 9:35 PM LIFE SKILLS COORDINATOR HEALTH x10(9)/L [facility] [place] Monocytes 0.43 0.26 - 08/16/2017 [facility] 0.81 9:35 PM LIFE SKILLS COORDINATOR HEALTH x10(9)/L [facility] [place] Eosinophils 0.10 0.03 - 08/16/2017 [facility] 0.48 9:35 PM LIFE SKILLS COORDINATOR HEALTH x10(9)/L [facility] [place] [facility] Basophils 0.01 0.01 - 08/16/2017 [facility] 0.08 9:35 PM [facility] [employer] x10(9)/L [facility] [employer] [facility] Specimen Anatomical Collection Method Collection Time Receive d Time (Source) Location / / Volume Laterality Blood (Blood, 08/16/2017 9:21 PM 08/16/19 18 9:24 Venous) LIFE SKILLS COORDINATOR PM LIFE SKILLS COORDINATOR Moises Desai M.D. LAB BLOOD ADD-ON Performing Organization Address City/State/ZIP Code Phon e Number [facility] [address] [place] [address] [place] [facility] BMP (Basic Metabolic Panel) (08/16/2017 9:21 PM LIFE SKILLS COORDINATOR) P athologist Signature Potassium, P 4.5 3.6 - 5.2 08/16/2017 [facility] mmol/L 9:54 PM [facility] Sodium, P 141 135 - 145 08/16/2017 [facility] mmol/L 9:54 PM [facility] Chloride, P 103 98 - 107 08/16/2017 [facility] mmol/L 9:54 PM [facility] Bicarbonate, P 28 22 - 29 08/16/2017 [facility] mmol/L 9:54 PM [facility] Anion Gap, P 10 7 - 15 08/16/2017 [facility] 9:54 PM [facility] BUN (Blood Urea 21 8 - 24 08/16/2017 [facility] Nitrogen), P mg/dL 9:54 PM [facility] Creatinine 0.96 0.74 - 08/16/2017 [facility] 1.35 mg/dL 9:54 PM [facility] eGFR-Black/Afri >90 >=60 08/16/2017 [facility] can Fijian mL/min/BSA 9:54 PM [facility] Comment: ----ADDITIONAL INFORMATION---- Estimated GFR calculated using the 2009 CKD_EPI creatinine equation. eGFR Non-Black/ >90 >=60 mL/min/BSA 08/16/2017 9:54 PM [facility] Fijian [facility] Comment: ----ADDITIONAL INFORMATION---- Estimated GFR calculated using the 2009 CKD_EPI creatinine equation. Calcium, Total, P 9.1 8.9 - 10.1 mg/dL 08/16/2017 9 :[address] [facility] Glucose, P 102 70 - 140 mg/dL 08/16/2017 9:54 PM [facility] Specimen Anatomical Collection Method Collection Time Receive d Time (Source) Location / / Volume Laterality Blood (Blood, 08/16/2017 9:21 PM 08/16/19 18 9:24 Venous) LIFE SKILLS COORDINATOR PM LIFE SKILLS COORDINATOR Moises Desai M.D. LAB BLOOD ADD-ON Performing Organization Address City/[facility]/ZIP Code Phon e Number [address] [address] [place] [facility] CRP (C-Reactive Protein) (08/16/2017 9:19 PM LIFE SKILLS COORDINATOR) athologist Signature C-Reactive <3.8 <=8.0 mg/L 08/16/2017 [facility] Protein (CRP), 9:54 PM [facility] Specimen Anatomical Collection Method Collection Time Receive d Time (Source) Location / / Volume Laterality Blood (Blood, 08/16/2017 9:19 PM 08/16/19 18 9:32 Venous) LIFE SKILLS COORDINATOR PM LIFE SKILLS COORDINATOR Moises Desai M.D. LAB BLOOD ADD-ON Performing Organization Address City/[facility]/ZIP Code Phon e Number [address] [address] [place] [facility] (ABNORMAL) Microscopic Manual (08/16/2017 8:20 PM LIFE SKILLS COORDINATOR) Analysis Performed At Patho logist Time Signature White Blood None Seen /hpf 08/16/2017 [facility] Cells 8:34 PM [facility] Comment: ----REFERENCE VALUE---- Males: 0-3 Females: 0-10 Unknown: 0-10 Red Blood Cells None Seen 0 - 2 /hpf 08/16/2017 8:34 PM [facility] Crystals Amorphous (A) None Seen /lpf 08/16/2017 8:34 PM [facility] Specimen Anatomical Collection Method Collection Time Receive d Time (Source) Location / / Volume Laterality Urine 08/16/2017 8:20 PM 8:27 LIFE SKILLS COORDINATOR PM LIFE SKILLS COORDINATOR Moises Desai M.D. LAB URINE ORDERABLES Performing Organization Address City/State/ZIP Code Phon e Number [facility] [address] [place] [address] [place] (ABNORMAL) Urinalysis with Microscopic if Indicated (08/16/2017 8:20 PM LIFE SKILLS COORDINATOR) Analysis Performed At [facility] Time Signature Source Midstream 08/16/2017 [facility] 8:27 PM [facility] Clarity Slightly Clear 08/16/2017 [facility] Cloudy (A) 8:27 PM [facility] Color Yellow 08/16/2017 [facility] 8:27 PM [facility] Comment: ----REFERENCE VALUE---- Colorless Yellow Susy Blood Negative Negative 08/16/2017 8:27 PM [facility] [place] Nitrite Negative Negative 08/16/2017 8:27 PM [facility] Leukocyte Esterase Negative Negative 08/16/2017 8:27 PM CS T [facility] Protein, U Negative mg/dL 08/16/2017 8:27 PM LIFE SKILLS COORDINATOR [facility] [place] Comment: ----REFERENCE VALUE---- Negative Trace Glucose Negative Negative mg/dL 08/16/2017 8:27 PM [facility] [place] Ketones, QL(U) Negative Negative mg/dL 08/16/2017 8:27 PM [facility] Bilirubin Negative Negative 08/16/2017 8:27 PM [facility] pH 7.0 5.0 - 8.0 08/16/2017 8:27 PM [facility] Specific [place] 1.020 1.001 - 1.035 08/16/2017 8:27 PM [facility] Urobilinogen 0.2 0.2 - 1.0 mg/dL 08/16/2017 8:27 PM [facility] Specimen Anatomical Collection Method Collection Time Receive d Time (Source) Location / / Volume Laterality Urine 08/16/2017 8:20 PM 8 8:24 LIFE SKILLS COORDINATOR PM LIFE SKILLS COORDINATOR Moises Desai M.D. LAB URINE ORDERABLES Performing Organization Address City/State/ZIP Code Phon e Number [facility] [address] [place] [address] [place] [facility] documented in this encounter Visit Diagnoses Diagnosis Colitis Crohn's (HCC) - Primary Sciatica Left documented in this encounter Administered Medications Inactive Administered Medications - up to 3 most recent administrations Medication Order MAR Action Action Date Dose Rate Site HYDROmorphone injection 0.5 mg Given 08/16/2017 11:29 PM LIFE SKILLS COORDINATOR 0.5 mg (for_DILAUDID) 0.5 mg, intravenous, Once, On Mon08/16/17 at 2314, For 1 dose HYDROmorphone injection 1 mg (for_DILAUD ID) Given 08/16/2017 9:27 PM LIFE SKILLS COORDINATOR 1 mg 1 mg, intravenous, Once, On Mon08/16/17 at 2116, For 1 dose iohexol 350 mg iodine/mL solution 1-200 mL Given 08/16/2017 9:53 PM LIFE SKILLS COORDINATOR 100 mL (for_OMNIPAQUE) 1-200 mL, intravenous, Once in imaging, contrast, Starting on Mon08/16/17 at 2152, For 1 dose, Imaging Protocol Orders, Dose per Radiant Medication Guidelines ketorolac (for_TORADOL) 30 mg/mL (1 mL) injection - ADS Override Pull Starting on Mon08/16/17 at 2022, For 1 d ose, Created by cabinet override Adult IV push rate: Over 15 seconds. Peds IV push rate: Over 1 minute. 60 mg dose only for IM, not recommended for IV. ketorolac injection 30 mg (for_TORADOL) Given 08/16/2017 8:35 PM LIFE SKILLS COORDINATOR 30 mg 30 mg, intravenous, Once, On Mon08/16/17 at 2023, For 1 dose, Adult IV push rate: Over 15 seconds. Peds IV push rate: Over 1 minute. 60 mg dose only for IM, not recommended for IV., Drug Monitoring Program: Pharmacist to adjust medication order based on comorbities and indication. NaCl 0.9 % bolus 1,000 mL New Bag 08/16/2017 8:34 PM LIFE SKILLS COORDINATOR 1,000 mL 999 mL/hr 1,000 mL, intravenous, Once, On Mon08/16/17 at 2023, For 1 dose NaCl 0.9 % bolus 100 mL Bolus from Bag 08/16/2017 9:53 PM LIFE SKILLS COORDINATOR 100 mL 100 mL, intravenous, Once, On Mon08/16/17 at 2153, For 1 dose NaCl 0.9% infusion New Bag 08/16/2017 9:37 PM LIFE SKILLS COORDINATOR 100 mL/hr 100 mL/hr 100 mL/hr, intravenous, Continuous, Starting on Mon08/16/17 at 2115 ondansetron (PF) injection 4 mg (for_ZOF RAN) Given 08/16/2017 9:32 PM LIFE SKILLS COORDINATOR 4 mg 4 mg, intravenous, Once, On Mon08/16/17 at 2115, For 1 dose predniSONE tablet 40 mg (for_DELTASONE) Given 08/16/2017 11:28 PM LIFE SKILLS COORDINATOR 40 mg 40 mg, oral, Once, On Mon08/16/17 at 2313, For 1 dose sodium chloride 0.9 % injection 10 mL Given 08/16/2017 9:53 PM LIFE SKILLS COORDINATOR 10 mL 10 mL, intravenous, Once, On Mon08/16/17 at 2153, For 1 dose sodium chloride 0.9 % injection 2-10 mL 2-10 mL, intravenous, As needed, line care, Starting o n Mon08/16/17 at 2021 documented in this encounter Active and Recently Administered Medications Times are shown in LIFE SKILLS COORDINATOR. Scheduled Medication Order 08/14/2017 08/15/2017 08/16/2017 HYDROmorphone injection 0.5 mg (for_DILAUDID) (COMPLETED) 2328 (Given - Provider: Crystla Rosenthal RLouise) 0.5 mg, intravenous, Once, Mon08/16/17 at 2314, For 1 dose HYDROmorphone injection 1 mg (for_DILAUDID) (COMPLETED) 2126 (Given - Provider: Crystal Rosenthal R.Avtar) 1 mg, intravenous, Once, Mon08/16/17 at 2115, For 1 dose ketorolac injection 30 mg (for_TORADOL) (COMPLETED) 2034 (Given - Provider: Crystal Rosenthal R.N.) 30 mg, intravenous, Once, 08/16/17 at 2023, For 1 dose, Adult IV push rate: Over 15 seconds. Peds IV push rate: Over 1 minute. 60 mg dose only for IM, not recommended for IV., Drug Monitoring Program : Pharmacist to adjust medication order based on comorbities and indication. NaCl 0.9 % bolus 1,000 mL (COMPLETED) 2033 (New Bag - Provider: Crystal Rosenthal R.N.)2099 (Stopped - Provider: Crystal Rosenthal R.N.) 1,000 mL, intravenous, Once, 08/16/17 at 2023, For 1 dose NaCl 0.9 % bolus 100 mL (COMPLETED) 2152 (Bolus from Bag - Provider: Brittany Elaine(R)(CT), Brittany(R))2153 (Due) 100 mL, intravenous, Once, 08/16/17 at 2153, For 1 dose ondansetron (PF) injection 4 mg (for_ZOFRAN) (COMPLETED) 2131 (Given - Provider: Crystal Rosenthal R.N.) 4 mg, intravenous, Once, 08/16/17 at 2116, For 1 dose predniSONE tablet 40 mg (for_DELTASONE) (COMPLETED) 2327 (Given - Provider: Crystal Rosenthal R.N.) 40 mg, oral, Once, 08/16/17 at 2314, For 1 dose sodium chloride 0.9 % injection 10 mL (COMPLETED) 2152 (Given - Provider: Brittany Elaine(R)(CT), Brittany(R))2153 (Due) 10 mL, intravenous, Once, 08/16/17 at 2154, For 1 dose Continuous Medication Order 08/14/2017 08/15/2017 08/16/2017 NaCl 0.9% infusion 2136 (New Bag - Provider: Crystal Rosenthal R.N.)235 (Stopped - Provider: Crystal Rosenthal R.N.) 100 mL/hr, intravenous, at 100 mL/hr, Continuous, Starting W ed 08/16/17 at 2116 PRN Medication Order 08/14/2017 08/15/201708/1608/16/2017 iohexol 350 mg iodine/mL solution 1-200 mL (for_OMNIPAQUE) (COMP LETED) 2153 (Given - Provider: Brittany Elaine(Татьяна)(CT), Brittany(R)) 1-200 mL, intravenous, Once in imaging, contrast, Starting 08/16/17 at 2152, For 1 dose, Imaging Protocol Orders, Dose per Radiant Medication Guidelines sodium chloride 0.9 % injection 2-10 mL(Linked Group 1) 2-10 mL, intravenous, As needed, line care, Starting Mon08/16/17 at 2021 Linked Groups Order Group 1: Place peripheral IV: No upper extremity site restrictions (CANCELED) Upper extremity site restriction: No upp er extremity site restrictions
Quantity of PIVs requested: One And sodium chloride 0.9 % injection 2-10 mLJump to med 2-10 mL, intravenous, As needed, line ca re, Starting Mon08/16/17 at 2021 documented in this encounter
[2022-04-25 18:49] LABS: Chloride* 99 mmol/L (96-114); Potassium* 4.6 mmol/L (3.6-5.1); Sodium* 139 mmol/L (135-149)
[2022-04-25 18:51] LABS: Creatinine* 0.8 mg/dL (0.5-1.5); Estimated Glomerular Filt Rate 111 ml/min
[2022-04-25 18:52] LABS: Blood Urea Nitrogen* 12 mg/dL (5-24); Carbon Dioxide* 26 mmol/L (20-32); Glucose* 168 mg/dL (60-115)
[2022-04-25 18:56] LABS: C Reactive Protein* < 0.5 mg/dL (0.5-1.0)
[2022-04-25 19:10] LABS: Vitamin D 25 Hydroxy* 20 ng/mL (30-80)
[2022-04-25 19:31] LABS: SARS PCR* Negative SARS-CoV-2 (Negative)
== END 2022-04-25 11:08 | disposition home or self-care (01) ==
PROVIDERS: PCP Family Medicine; Visit Provider Family Medicine
DX: Z01.818 Encounter for other preprocedural examination (principal); I10 Essential (primary) hypertension; E29.1 Testicular hypofunction; Z20.822 Contact with and (suspected) exposure to COVID-19; Z13.21 Encounter for screening for nutritional disorder; F41.9 Anxiety disorder, unspecified; E66.9 Obesity, unspecified
CPT/HCPCS: 80048; 82306; 86140; 87635

== ENCOUNTER 2022-06-21 10:46 | Outpatient (CLI) | payer BC, SELFPAY ==
--- OUTSIDE RECORDS SUMMARY | 2022-06-21 10:54 | XMS_ITS | Encounter Summary ---
:[address] [facility] Address [address] [place] [address] Care Team Providers Name Role Phone Elsewhere, Pcp Primary Care Provider Unavailable Reason for Visit Auth/Cert Specialty Diagnoses / Procedures Referred By Contact Refer red To Contact Diagnoses Small Bowel Stricture Personal History abdominal pain, concern for bowel obstruction Procedures Z87.19 (ICD-10-CM) - Small Bowel Stricture Personal History Referral ID Status Reason Start Date Expiration Date Visits Requ ested Visits Authorized [id number] 1 1 Encounter Details Date Type Department Care Team Description 09/18/2021 - Hospital Encounter [facility] El Andrew Small Bowel [facility], [address] [place] [address] History ([place], [place] Dx) Sixth Floor [phone] [place] [address] [place], [place] (Work) [phone] Social History Tobacco Use [...] drinks on one occasion? No t asked Social Isolation Answer Date Recorded In a typical week, how many times do you More than three jadiel es a week 09/15/2021 talk on the phone with family, friends, or neighbors? How often do you get together with friends Once a week 09/15/2021 or relatives? How often do you attend catholic or More than 4 times per year 09/15/2021 quaker services? Do you belong to any clubs or Yes 09/15/2021 organizations such as catholic groups, unions, fraternal or athletic groups, [...] or slept in a custodial (including now)? Education Answer Date Recorded What is the highest level of school Associate degree: [employer] espinoza, 09/15/2021 you have completed or the highest technical, or vocational [facility] degree you have received? Sex Assigned at Date Recorded Male 09/15/2021 9:14 AM ELECTRONIC DATA PROCESSING AUDITOR documented as of this encounter Last Filed Vital Signs Vital Sign Reading Time Taken Comments Blood Pressure 122/81 09/21/2021 7:50 AM ELECTRONIC DATA PROCESSING AUDITOR Pulse 79 09/21/2021 3:00 PM ELECTRONIC DATA PROCESSING AUDITOR Temperature 36.4 ??C (97.5 ??F) 09/21/2021 7:50 AM ELECTRONIC DATA PROCESSING AUDITOR Respiratory Rate 15 09/21/2021 3:00 PM ELECTRONIC DATA PROCESSING AUDITOR Oxygen Saturation 96% 09/21/2021 3:00 PM ELECTRONIC DATA PROCESSING AUDITOR Inhaled Oxygen Concentration - - Weight 119 kg (261 lb 11 oz) 09/18/2021 4:03 PM ELECTRONIC DATA PROCESSING AUDITOR Height 185 cm (6' 0.84) 09/21/2021 11:02 AM ELECTRONIC DATA PROCESSING AUDITOR Body Mass Index 34.68 09/18/2021 4:03 PM ELECTRONIC DATA PROCESSING AUDITOR documented in this encounter Discharge Summaries Silvino Belle M.D. - 09/21/2021 2:28 PM CST DISCHARGE SUMMARY BRIEF OVERVIEW Hospital: [facility] Discharge Provider: El Andrew M.D. Primary Team: [...] The biopsies only showed nonspecific focal ileitis. -[facility] saw him here in 2016, said no dx of IBD, seems steroid responsive but not appropriate forlong-term immunosuppression w/o dx criteria and proposed colonoscopy and CT enterography here. He did the colonoscopy only, which was totally normal. -He has had one upper endoscopy around 2013 that was essentially normal. No duodenal biopsies were done. -He did undergo pill enteroscopy at [facility] which was unrevealing, date unclear. In all prior hospitalizations, aside from most recent visit here at [facility], he has received a course of steroids (5-7 days) followed by taper. The majority of these hospitalizations were at [facility]. He did complete a taper on 08/24/2021 in then presented again with obstruction on 09/06/2021. [facility] (09/06/2021-09/08/2021) During his most recent admission, [...] with balloon endoscopy. However, in the very associate medical director of 09/18 he develops recurrence of symptoms. Sharp abdominal pain, progressive distension, progressive nausea, p.o. intolerance. He endorses diarrhea and he is continuing topass gas. No emesis. No blood in his stool. He presented to the outside hospital and was promptly transferred here to [facility]. Vitals within normal limits. Laboratory evaluation including [...] were provided to the patient and caregiver(s). TRONIC DATA PROCESSING AUDITOR documented in this encounter Discharge Instructions Discharge InstructionsKahlil Crespo - 09/20/2021 8:00 AM CST You were discharged from the [facility] Gastroenterology A Service. Please identify this service name if you call with questions after hospitalization. TRONIC DATA PROCESSING AUDITOR documented in this encounter Medications at Time [...] about patient's nutritional care please contact pager [phone] on weekdays or [phone] on weekends/holidays. Silvino Mulligan M.D. - 09/20/2021 [...] / PLAN Mr. Whitley is hospitalized on [facility] Gastroenterology A for evaluation and [...] Surrogate Decision Maker: Spouse, Terra Disposition: Uncertain TRONIC DATA PROCESSING AUDITOR El Andrew M.D. - 09/20/2021 10:03 AM [...] unspecified cardiac disease OBJECTIVE Home medications: per [facility] -- Held: all PO meds [...] tablet Take 100 mg by mouth daily. TRONIC DATA PROCESSING AUDITOR documented in this encounter H&P Notes El [...] consultation. Agree with conservative and supportive plans. TRONIC DATA PROCESSING AUDITOR Raul Neil M.D. - 09/18/2021 9:22 PM [...] The biopsies only showed nonspecific focal ileitis. -[facility] saw him here in 2016, said no dx of IBD, seems steroid responsive but not appropriate forlong-term immunosuppression w/o dx criteria and proposed colonoscopy and CT enterography here. He did the colonoscopy only, which was totally normal. -He has had one upper endoscopy around 2013 that was essentially normal. No duodenal biopsies were done. -He did undergo pill enteroscopy at [facility] which was unrevealing, date unclear. In all prior hospitalizations, aside from most recent 1 here to [facility], he has received a course of steroids (5-7 days) followed by taper. The majority of these hospitalizations were at [facility]. He did complete a taper on 08/24 in then presented again with obstruction . During his most recent admission, CT demonstrated [...] with balloon endoscopy. However, in the very associate medical director of 09/18 he develops recurrence of symptoms. Sharp abdominal pain,progressive distension, progressive nausea, p.o. intolerance. He endorses diarrhea and he is continuing to pass gas. No emesis. No blood in his stool. He presented to the outside hospital and was promptly transferred here to [facility]. Vitals within normal limits. Laboratory evaluation including [...] 100 mg by mouth daily. ??? [DISCONTINUED] [id number] (MOVIPREP) 100-7.5-2.691 gram per packet, Drink 1st [...] / PLAN Mr. Whitley is hospitalized on [facility] Gastroenterology A for evaluation and [...] Surrogate Decision Maker: Spouse, Terra Disposition: Uncertain TRONIC DATA PROCESSING AUDITOR documented in this encounter Consult Notes Melody [...] or questions arise. Ann Hughes, R.N. 09/19/2021 TRONIC DATA PROCESSING AUDITOR documented in this encounter Nursing Notes Chauncey Galvan R.N. - 09/21/2021 3:47 PM CST Patient hospitalized for SBO. Discharged home today with self care. All discharge instruction given to patient, patient verbalize understanding, questions answered approprieatly. Family providing transportation home. TRONIC DATA PROCESSING AUDITOR Blake Diaz R.N. - 09/20/2021 6:41 AM [...] aspatient was in bed at this time. TRONIC DATA PROCESSING AUDITOR Brittany Romero R.N. - 09/19/2021 6:44 PM [...] of the day. Vital signs remain stable. TRONIC DATA PROCESSING AUDITOR Kayleen Washington R.N. - 09/18/2021 6:23 PM [...] Patient has hx of GI obstructive symptoms. TRONIC DATA PROCESSING AUDITOR documented in this encounter Miscellaneous Notes Hospital [...] The biopsies only showed nonspecific focal ileitis. -[facility] saw him here in 2017, said no dx of IBD, seems steroid responsive but not appropriate forlong-term immunosuppression w/o dx criteria and proposed colonoscopy and CT enterography here. He did the colonoscopy only, which was totally normal. -He has had one upper endoscopy around 2013 that was essentially normal. No duodenal biopsies were done. -He did undergo pill enteroscopy at [facility] which was unrevealing, date unclear. In all prior hospitalizations, aside from most recent visit here at [facility], he has received a course of steroids (5-7 days) followed by taper. The majority of these hospitalizations were at [facility]. He did complete a taper on 08/24/2021 in then presented again with obstruction on 09/06/2021. [facility] (09/06/2021-09/08/2021) During his most recent admission, [...] with balloon endoscopy. However, in the very associate medical director of 09/18 he develops recurrence of symptoms. Sharp abdominal pain, progressive distension, progressive nausea, p.o. intolerance. He endorses diarrhea and he is continuing topass gas. No emesis. No blood in his stool. He presented to the outside hospital and was promptly transferred here to [facility]. Vitals within normal limits. Laboratory evaluation including [...] discharged home in stable condition on 09/21/2021. TRONIC DATA PROCESSING AUDITOR documented in this encounter Plan of Treatment Not on filedocumented as of this encounter Procedures Procedure Name Priority Date/Time Associated Comments Diagnosis DX ABDOMEN 1 VIEW RAD - Routine 09/21/2021 8:36 Result s for (most inpatients AM ELECTRONIC DATA PROCESSING AUDITOR this proced ure and all are in the outpatients) results section. POTASSIUM, S/P STAT 09/21/2021 6:50 Results fo r AM ELECTRONIC DATA PROCESSING AUDITOR this procedure are in the results section. CBC WITH Routine 09/21/2021 4:13 Results for DIFFERENTIAL, B AM ELECTRONIC DATA PROCESSING AUDITOR this procedu re are in the results section. BASIC METABOLIC Routine 09/21/2021 4:13 Results f or PANEL, S/P AM ELECTRONIC DATA PROCESSING AUDITOR this procedure are in the results section. GLUCOSE POCT, B Routine 09/20/2021 6:48 Results f or PM ELECTRONIC DATA PROCESSING AUDITOR this procedure are in the results section. FL SMALL BOWEL SINGLE RAD - Routine 09/20/2021 3:18 Re sults for CONTRAST (most inpatients PM ELECTRONIC DATA PROCESSING AUDITOR this proced ure and all are in the outpatients) results section. GLUCOSE POCT, B Routine 09/20/2021 11:00 Results for AM ELECTRONIC DATA PROCESSING AUDITOR this procedure are in the results section. GLUCOSE POCT, B Routine 09/20/2021 7:54 Results f or AM ELECTRONIC DATA PROCESSING AUDITOR this procedure are in the results section. GLUCOSE POCT, B Routine 09/19/2021 7:55 Results f or PM ELECTRONIC DATA PROCESSING AUDITOR this procedure are in the results section. GLUCOSE POCT, B Routine 09/19/2021 4:30 Results f or PM ELECTRONIC DATA PROCESSING AUDITOR this procedure are in the results section. GLUCOSE POCT, B Routine 09/19/2021 11:23 Results for AM ELECTRONIC DATA PROCESSING AUDITOR this procedure are in the results section. GLUCOSE POCT, B Routine 09/19/2021 8:10 Results f or AM ELECTRONIC DATA PROCESSING AUDITOR this procedure are in the results section. GLUCOSE POCT, B Routine 09/19/2021 6:09 Results f or AM ELECTRONIC DATA PROCESSING AUDITOR this procedure are in the results section. CBC WITH Routine 09/19/2021 5:07 Results for DIFFERENTIAL, B AM ELECTRONIC DATA PROCESSING AUDITOR this procedu re are in the results section. LACTATE, B/P Timed 09/19/2021 5:07 Results for AM ELECTRONIC DATA PROCESSING AUDITOR this procedure are in the results section. BASIC METABOLIC Routine 09/19/2021 5:07 Results f or PANEL, S/P AM ELECTRONIC DATA PROCESSING AUDITOR this procedure are in the results section. GLUCOSE POCT, B Routine 09/18/2021 9:46 Results f or PM ELECTRONIC DATA PROCESSING AUDITOR this procedure are in the results section. GLUCOSE POCT, B Routine 09/18/2021 5:28 Results f or PM ELECTRONIC DATA PROCESSING AUDITOR this procedure are in the results section. DX ABDOMEN PORTABLE RAD - Semiurgent 09/18/2021 3:41 R esults for ANTERIOR POSTERIOR 1 (Fast; most ED PM ELECTRONIC DATA PROCESSING AUDITOR this procedure VIEW patients; some are in the inpatients) results section. SARS CORONAVIRUS 2, Routine 09/18/2021 3:17 Resul ts for RNA, RAPID POC, V PM ELECTRONIC DATA PROCESSING AUDITOR this proce dure are in the results section. CBC WITH Routine 09/18/2021 3:12 Results for DIFFERENTIAL, B PM ELECTRONIC DATA PROCESSING AUDITOR this procedu re are in the results section. LACTATE, B/P Routine 09/18/2021 3:12 Results for PM ELECTRONIC DATA PROCESSING AUDITOR this procedure are in the results section. BASIC METABOLIC Routine 09/18/2021 3:12 Results f or PANEL, S/P PM ELECTRONIC DATA PROCESSING AUDITOR this procedure are in the results section. INTERPRETATION OF RAD - Routine 09/18/2021 3:02 Result s for OUTSIDE CT ABDOMEN (most inpatients PM ELECTRONIC DATA PROCESSING AUDITOR this procedure AND OR PELVIS and all are in the outpatients) results section. documented in this encounter Results DX Abdomen 1 View (09/21/2021 8:36 AM ELECTRONIC DATA PROCESSING AUDITOR) Anatomical Region Laterality Modality Abdomen, Abdominal RST LOS, Abdominal ARZ LOS, N/A Digital Radiography Abdominal FLA LOS Specimen (Source) Anatomical Collection Method Collection Time Re ceived Time Location / / Volume Laterality 09/21/2021 8:38 AM ELECTRONIC DATA PROCESSING AUDITOR Impressions 09/21/2021 8:49 AM ELECTRONIC DATA PROCESSING AUDITOR Enteric contrast is visualized throughout the colon which appears normal in caliber. Enteric contrast is visualized within th e appendix. Paucity of small bowel gas. The visualized lung bases are clear. Narrative 09/21/2021 8:49 AM ELECTRONIC DATA PROCESSING AUDITOR EXAM: ??DX ABDOMEN 1 VIEW Procedure Note [...] clear. Shannon [place], B.Ch. IMG DIAGNOSTIC IMAGING [place] OCEDURES Potassium (09/21/2021 6:50 AM ELECTRONIC DATA PROCESSING AUDITOR) P athologist Signature Potassium, S 4.3 3.6 - 5.2 09/21/2021 DTL mmol/L 7:42 AM ELECTRONIC DATA PROCESSING AUDITOR Specimen Anatomical Collection Method Collection Time Receive d Time (Source) Location / / Volume Laterality Blood 09/21/2021 6:50 AM 7:30 ELECTRONIC DATA PROCESSING AUDITOR AM ELECTRONIC DATA PROCESSING AUDITOR Silvino Belle M.D. LAB BLOOD ADD-ON Performing Organization Address City/State/ZIP Code Phon e Number [facility] - [address] [place], [place] [address] [facility] [place] [address] [facility] [address] (ABNORMAL) Basic Metabolic Panel (09/21/2021 4:13 AM ELECTRONIC DATA PROCESSING AUDITOR) P athologist Signature Potassium, S CANCELED mmol/L 09/21/2021 DTL 7:10 AM ELECTRONIC DATA PROCESSING AUDITOR Comment: Specimen was hemolyzed. Redraw has been ordered and is in progre ss. Result canceled by the ancillary. Sodium, S 141 135 - 145 mmol/L 09/21/2021 5:56 AM ELECTRONIC DATA PROCESSING AUDITOR DTL Chloride, S 102 98 - 107 mmol/L 09/21/2021 5:56 AM ELECTRONIC DATA PROCESSING AUDITOR DTL Bicarbonate, S 25 22 - 29 mmol/L 09/21/2021 5:[address] DTL Anion Gap 14 7 - 15 09/21/2021 5:56 AM ELECTRONIC DATA PROCESSING AUDITOR DTL BUN (Blood Urea Nitrogen), S 6 (L) 8 - 24 mg/dL 09/22/19 5:56 AM ELECTRONIC DATA PROCESSING AUDITOR DTL Creatinine 0.88 0.74 - 1.35 mg/dL 09/21/2021 5:56 AM CS T DTL eGFR-Non Black/ >90 >=60 mL/min/BSA 09/21/2021 5:56 AM ELECTRONIC DATA PROCESSING AUDITOR DTL [place] Comment: ----ADDITIONAL INFORMATION---- Estimated GFR calculated using the 2009 CKD_EPI creatinine equation. eGFR-Black/ >90 >=60 mL/min/BSA 2021 5:56 AM ELECTRONIC DATA PROCESSING AUDITOR DTL Comment: ----ADDITIONAL INFORMATION---- Estimated GFR calculated using the 2009 CKD_EPI creatinine equation. Calcium, Total, S 8.7 8.6 - 10.0 mg/dL 09/21/2021 5:56 AM ELECTRONIC DATA PROCESSING AUDITOR DTL Glucose, S 92 70 - 140 mg/dL 09/21/2021 5:56 AM ELECTRONIC DATA PROCESSING AUDITOR D TL Specimen Anatomical Collection Method Collection Time Receive d Time (Source) Location / / Volume Laterality Blood (Blood, 09/21/2021 4:13 AM 09/22/19 5:37 Venous) ELECTRONIC DATA PROCESSING AUDITOR AM ELECTRONIC DATA PROCESSING AUDITOR Silvino Belle M.D. LAB BLOOD ADD-ON Performing Organization Address City/State/ZIP Code Phon e Number [facility] - [address] [place], [place] [address] [facility] [address] [facility] [address] (ABNORMAL) CBC with Differential, Blood (09/21/2021 4:13 AM ELECTRONIC DATA PROCESSING AUDITOR) [facility] gist Method Time Signature Hemoglobin 14.0 13.2 - 09/21/2021 DTL 16.6 g/dL 5:32 AM ELECTRONIC DATA PROCESSING AUDITOR Hematocrit 42.7 38.3 - 09/21/2021 DTL 48.6 % 5:32 AM ELECTRONIC DATA PROCESSING AUDITOR Erythrocytes 4.61 4.35 - 09/21/2021 DTL 5.65 5:32 AM ELECTRONIC DATA PROCESSING AUDITOR x10(12)/L MCV 92.6 78.2 - 09/21/2021 DTL 97.9 fL 5:32 AM ELECTRONIC DATA PROCESSING AUDITOR RBC Distrib Width 14.8 (H) 11.8 - 09/21/2021 DTL 14.5 % 5:32 AM ELECTRONIC DATA PROCESSING AUDITOR Platelet Count 305 135 - 317 09/21/2021 DTL x10(9)/L 5:32 AM ELECTRONIC DATA PROCESSING AUDITOR Leukocytes 4.7 3.4 - 9.6 09/21/2021 DTL x10(9)/L 5:32 AM ELECTRONIC DATA PROCESSING AUDITOR Neutrophils 2.16 1.56 - 09/21/2021 DTL 6.45 5:32 AM ELECTRONIC DATA PROCESSING AUDITOR x10(9)/L Lymphocytes 1.83 0.95 - 09/21/2021 DTL 3.07 5:32 AM ELECTRONIC DATA PROCESSING AUDITOR x10(9)/L Monocytes 0.41 0.26 - 09/21/2021 DTL 0.81 5:32 AM ELECTRONIC DATA PROCESSING AUDITOR x10(9)/L Eosinophils 0.33 0.03 - 09/21/2021 DTL 0.48 5:32 AM ELECTRONIC DATA PROCESSING AUDITOR x10(9)/L Basophils <0.03 0.01 - 09/21/2021 DTL 0.08 5:32 AM ELECTRONIC DATA PROCESSING AUDITOR x10(9)/L Specimen Anatomical Collection Method Collection Time Receive d Time (Source) Location / / Volume Laterality Blood (Blood, 09/21/2021 4:13 AM 09/22/19 22 5:21 Venous) ELECTRONIC DATA PROCESSING AUDITOR AM ELECTRONIC DATA PROCESSING AUDITOR Silvino Belle M.D. LAB BLOOD ADD-ON Performing Organization Address City/State/ZIP Code Phon e Number [facility] - [address] [place], [place] [address] [facility] [place] [address] [facility] [address] Glucose, POCT (09/20/2021 6:48 PM ELECTRONIC DATA PROCESSING AUDITOR) Analysis Performed At Patho logist Time Signature Glucose, POCT, 89 70 - 140 09/20/2021 [facility] B mg/dL 6:53 PM ELECTRONIC DATA PROCESSING AUDITOR Site Capillary 09/20/2021 [facility] 6:53 PM ELECTRONIC DATA PROCESSING AUDITOR Last Intake NPO 09/20/2021 [facility] 6:53 PM ELECTRONIC DATA PROCESSING AUDITOR Specimen Anatomical Collection Method Collection Time Receive d Time (Source) Location / / Volume Laterality Blood 09/20/2021 6:48 PM 6:53 ELECTRONIC DATA PROCESSING AUDITOR PM ELECTRONIC DATA PROCESSING AUDITOR Unknown Provider LAB POCT ORDERABLES-MANUAL Performing Organization Address City/State/ZIP Code Phon e Number POC [facility] [address] [place] [address] [facility] [place] [address] [place] [facility] [address] Fl Small Bowel Single Contrast (09/20/2021 3:18 PM ELECTRONIC DATA PROCESSING AUDITOR) Anatomical Region Laterality Modality Gastro Intestinal, Abdominal RST LOS, Abdominal ARZ N/A Digital Radiography LOS, Abdominal FLA LOS Specimen (Source) Anatomical Collection Method Collection Time Re ceived Time Location / / Volume Laterality 09/20/2021 3:32 PM ELECTRONIC DATA PROCESSING AUDITOR Impressions 09/20/2021 4:18 PM ELECTRONIC DATA PROCESSING AUDITOR 1. Short segment of ileum at the level of the umbilicus in the right lower quadrant seen in the right lateral decubitus position may rep resent focal stricture however AP view correlate was not easily identified. 2. Examination was terminated early seco ndary to lightheadedness and mild hypotensive episode treated conservatively. Recommend serial radiographs to evaluate the terminal ileum. Narrative 09/20/2021 4:18 PM ELECTRONIC DATA PROCESSING AUDITOR EXAM: ??FL SMALL BOWEL SINGLE CONTRAST COMPARISON: [...] in question was not easily identified on e AP view for correlation. No other [...] FLUOROSCOPY PROCEDURES Glucose, POCT (09/20/2021 11:00 AM ELECTRONIC DATA PROCESSING AUDITOR) Analysis Performed At Patho logist Time Signature Glucose, POCT, 133 70 - 140 09/20/2021 [facility] B mg/dL 11:07 AM ELECTRONIC DATA PROCESSING AUDITOR Site Capillary 09/20/2021 [facility] 11:07 AM ELECTRONIC DATA PROCESSING AUDITOR Last Intake NPO 09/20/2021 [facility] 11:07 AM ELECTRONIC DATA PROCESSING AUDITOR Specimen Anatomical Collection Method Collection Time Receive d Time (Source) Location / / Volume Laterality Blood 09/20/2021 11:00 09/20/2021 AM ELECTRONIC DATA PROCESSING AUDITOR 11:07 AM ELECTRONIC DATA PROCESSING AUDITOR Unknown Provider LAB POCT ORDERABLES-MANUAL Performing Organization Address City/State/ZIP Code Phon e Number POC [facility] [address] [place] [address] [place] [address] [place] [facility] [address] Glucose, POCT (09/20/2021 7:54 AM ELECTRONIC DATA PROCESSING AUDITOR) Analysis Performed At Patho logist Time Signature Glucose, POCT, 103 70 - 140 09/20/2021 [facility] B mg/dL 8:05 AM ELECTRONIC DATA PROCESSING AUDITOR Site Capillary 09/20/2021 [facility] 8:05 AM ELECTRONIC DATA PROCESSING AUDITOR Last Intake NPO 09/20/2021 [facility] 8:05 AM ELECTRONIC DATA PROCESSING AUDITOR Specimen Anatomical Collection Method Collection Time Receive d Time (Source) Location / / Volume Laterality Blood 09/20/2021 7:54 AM 2 8:05 ELECTRONIC DATA PROCESSING AUDITOR AM ELECTRONIC DATA PROCESSING AUDITOR Unknown Provider LAB POCT ORDERABLES-MANUAL Performing Organization Address City/[facility] Phon e Number POC [facility] [address] [place] [address] [place] [address] [place] [facility] [address] [facility] Glucose, POCT (09/19/2021 7:55 PM ELECTRONIC DATA PROCESSING AUDITOR) Analysis Performed At Patho logist Time Signature Glucose, POCT, 99 70 - 140 09/19/2021 [facility] B mg/dL 8:00 PM ELECTRONIC DATA PROCESSING AUDITOR Site Capillary 09/19/2021 [facility] 8:00 PM ELECTRONIC DATA PROCESSING AUDITOR Specimen Anatomical Collection Method Collection Time Receive d Time (Source) Location / / Volume Laterality Blood 09/19/2021 7:55 PM 2 8:00 ELECTRONIC DATA PROCESSING AUDITOR PM ELECTRONIC DATA PROCESSING AUDITOR Unknown Provider LAB POCT ORDERABLES-MANUAL Performing Organization Address City/[facility] Phon e Number POC [facility] [address] [place] [address] [place] [address] [place] [facility] [address] Glucose, POCT (09/19/2021 4:30 PM ELECTRONIC DATA PROCESSING AUDITOR) Analysis Performed At Patho logist Time Signature Glucose, POCT, 103 70 - 140 09/19/2021 [facility] B mg/dL 4:37 PM ELECTRONIC DATA PROCESSING AUDITOR Site Capillary 09/19/2021 [facility] 4:37 PM ELECTRONIC DATA PROCESSING AUDITOR Last Intake NPO 09/19/2021 [facility] 4:37 PM ELECTRONIC DATA PROCESSING AUDITOR Specimen Anatomical Collection Method Collection Time Receive d Time (Source) Location / / Volume Laterality Blood 09/19/2021 4:30 PM 4:37 ELECTRONIC DATA PROCESSING AUDITOR PM ELECTRONIC DATA PROCESSING AUDITOR Unknown Provider LAB POCT ORDERABLES-MANUAL Performing Organization Address City/State/ZIP Code Phon e Number POC [facility] [address] [place] [address] [place] [address] [place] [facility] [address] Glucose, POCT (09/19/2021 11:23 AM ELECTRONIC DATA PROCESSING AUDITOR) Analysis Performed At [facility] logist Time Signature Glucose, POCT, 125 70 - 140 09/19/2021 [facility] B mg/dL 11:29 AM ELECTRONIC DATA PROCESSING AUDITOR Site Capillary 09/19/2021 PCLX 11:29 AM ELECTRONIC DATA PROCESSING AUDITOR Last Intake NPO 09/19/2021 PCLX 11:29 AM ELECTRONIC DATA PROCESSING AUDITOR Specimen Anatomical Collection Method Collection Time Receive d Time (Source) Location / / Volume Laterality Blood 09/19/2021 11:23 09/19/2021 AM ELECTRONIC DATA PROCESSING AUDITOR 11:29 AM ELECTRONIC DATA PROCESSING AUDITOR Unknown Provider LAB POCT ORDERABLES-MANUAL Performing Organization Address City/State/[facility] Phon e Number POC [facility] [address] [place] [address] [place] [address] [place] [facility] [address] (ABNORMAL) Glucose, POCT (09/19/2021 8:10 AM ELECTRONIC DATA PROCESSING AUDITOR) [facility] Signature Glucose, POCT, 149 (H) 70 - 140 09/19/2021 PCLX B mg/dL 8:20 AM ELECTRONIC DATA PROCESSING AUDITOR Site Capillary 09/19/2021 PCLX 8:20 AM ELECTRONIC DATA PROCESSING AUDITOR Last Intake NPO 09/19/2021 PCLX 8:20 AM ELECTRONIC DATA PROCESSING AUDITOR Specimen Anatomical Collection Method Collection Time Receive d Time (Source) Location / / Volume Laterality Blood 09/19/2021 8:10 AM 8:20 ELECTRONIC DATA PROCESSING AUDITOR AM ELECTRONIC DATA PROCESSING AUDITOR Unknown Provider LAB POCT ORDERABLES-MANUAL Performing Organization Address City/State/[facility] Code Phon e Number POC [facility] [address] [place] [address] [place] [address] [place] [facility] [address] (ABNORMAL) Glucose, POCT (09/19/2021 6:09 AM ELECTRONIC DATA PROCESSING AUDITOR) Analysis Performed At Patho logist Time Signature Glucose, POCT, 146 (H) 70 - 140 09/19/2021 PCLX B mg/dL 6:11 AM ELECTRONIC DATA PROCESSING AUDITOR Site Capillary 09/19/2021 PCLX 6:11 AM ELECTRONIC DATA PROCESSING AUDITOR Specimen Anatomical Collection Method Collection Time Receive d Time (Source) Location / / Volume Laterality Blood 09/19/2021 6:09 AM 6:11 ELECTRONIC DATA PROCESSING AUDITOR AM ELECTRONIC DATA PROCESSING AUDITOR Unknown Provider LAB POCT ORDERABLES-MANUAL Performing Organization Address City/State/ZIP Code Phon e Number POC [facility] [address] [place] [address] [facility] [place] [address] [place] [facility] [address] [facility] Lactate (09/19/2021 5:07 AM ELECTRONIC DATA PROCESSING AUDITOR) P athologist Signature Lactate, P 1.0 0.5 - 2.2 09/19/2021 DTL mmol/L 6:00 AM ELECTRONIC DATA PROCESSING AUDITOR Specimen Anatomical Collection Method Collection Time Receive d Time (Source) Location / / Volume Laterality Blood (Blood, 09/19/2021 5:07 AM 09/19/19 5:47 Venous) ELECTRONIC DATA PROCESSING AUDITOR AM ELECTRONIC DATA PROCESSING AUDITOR Raul Neil M.D. LAB BLOOD NON ADD-ON Performing Organization Address City/[facility] Code Phon e Number [facility] - [address] [place], [place] [address] [facility] [place] [place] [address] Laboratories-[facility] [address] (ABNORMAL) Basic Metabolic Panel (09/19/2021 5:07 AM ELECTRONIC DATA PROCESSING AUDITOR) P athologist Signature Potassium, S 4.3 3.6 - 5.2 09/19/2021 DTL mmol/L 6:04 AM ELECTRONIC DATA PROCESSING AUDITOR Sodium, S 140 135 - 145 09/19/2021 DTL mmol/L 6:04 AM ELECTRONIC DATA PROCESSING AUDITOR Chloride, S 104 98 - 107 09/19/2021 DTL mmol/L 6:04 AM ELECTRONIC DATA PROCESSING AUDITOR Bicarbonate, S 25 22 - 29 09/19/2021 DTL mmol/L 6:04 AM ELECTRONIC DATA PROCESSING AUDITOR Anion Gap 11 7 - 15 09/19/2021 DTL 6:04 AM ELECTRONIC DATA PROCESSING AUDITOR BUN (Blood Urea 11 8 - 24 09/19/2021 DTL Nitrogen), S mg/dL 6:04 AM ELECTRONIC DATA PROCESSING AUDITOR Creatinine 0.92 0.74 - 09/19/2021 DTL 1.35 mg/dL 6:04 AM ELECTRONIC DATA PROCESSING AUDITOR eGFR-Non >90 >=60 09/19/2021 DTL Black/ mL/min/BSA 6:04 AM ELECTRONIC DATA PROCESSING AUDITOR [place] Comment: ----ADDITIONAL INFORMATION---- Estimated GFR calculated using the 2009 CKD_EPI creatinine equation. eGFR-Black/ >90 >=60 mL/min/BSA 2021 6:04 AM ELECTRONIC DATA PROCESSING AUDITOR DTL Comment: ----ADDITIONAL INFORMATION---- Estimated GFR calculated using the 2009 CKD_EPI creatinine equation. Calcium, Total, S 8.2 (L) 8.6 - 10.0 mg/dL 09/19/2021 6:04 AM ELECTRONIC DATA PROCESSING AUDITOR DTL Glucose, S 133 70 - 140 mg/dL 09/19/2021 6:04 AM ELECTRONIC DATA PROCESSING AUDITOR D TL Specimen Anatomical Collection Method Collection Time Receive d Time (Source) Location / / Volume Laterality Blood (Blood, 09/19/2021 5:07 AM 09/19/19 5:48 Venous) ELECTRONIC DATA PROCESSING AUDITOR AM ELECTRONIC DATA PROCESSING AUDITOR Raul Neil M.D. LAB BLOOD ADD-ON Performing Organization Address City/State/ZIP Code Phon e Number [facility] - [address] [place] [phone] [facility] [place] [place] [address] Laboratories-[facility] [address] [facility] (ABNORMAL) CBC with Differential, Blood (09/19/2021 5:07 AM ELECTRONIC DATA PROCESSING AUDITOR) [facility] gist Method Time Signature Hemoglobin 13.7 13.2 - 09/19/2021 DTL 16.6 g/dL 5:40 AM ELECTRONIC DATA PROCESSING AUDITOR Hematocrit 41.6 38.3 - 09/19/2021 DTL 48.6 % 5:40 AM ELECTRONIC DATA PROCESSING AUDITOR Erythrocytes 4.51 4.35 - 09/19/2021 DTL 5.65 5:40 AM ELECTRONIC DATA PROCESSING AUDITOR x10(12)/L MCV 92.2 78.2 - 09/19/2021 DTL 97.9 fL 5:40 AM ELECTRONIC DATA PROCESSING AUDITOR RBC Distrib Width 14.9 (H) 11.8 - 09/19/2021 DTL 14.5 % 5:40 AM ELECTRONIC DATA PROCESSING AUDITOR Platelet Count 308 135 - 317 09/19/2021 DTL x10(9)/L 5:40 AM ELECTRONIC DATA PROCESSING AUDITOR Leukocytes 4.2 3.4 - 9.6 09/19/2021 DTL x10(9)/L 5:40 AM ELECTRONIC DATA PROCESSING AUDITOR Neutrophils 1.95 1.56 - 09/19/2021 DTL 6.45 5:40 AM ELECTRONIC DATA PROCESSING AUDITOR x10(9)/L Lymphocytes 1.63 0.95 - 09/19/2021 DTL 3.07 5:40 AM ELECTRONIC DATA PROCESSING AUDITOR x10(9)/L Monocytes 0.32 0.26 - 09/19/2021 DTL 0.81 5:40 AM ELECTRONIC DATA PROCESSING AUDITOR x10(9)/L Eosinophils 0.31 0.03 - 09/19/2021 DTL 0.48 5:40 AM ELECTRONIC DATA PROCESSING AUDITOR x10(9)/L Basophils <0.03 0.01 - 09/19/2021 DTL 0.08 5:40 AM ELECTRONIC DATA PROCESSING AUDITOR x10(9)/L Specimen Anatomical Collection Method Collection Time Receive d Time (Source) Location / / Volume Laterality Blood (Blood, 09/19/2021 5:07 AM 09/19/19 5:31 Venous) ELECTRONIC DATA PROCESSING AUDITOR AM ELECTRONIC DATA PROCESSING AUDITOR Raul Neil M.D. LAB BLOOD ADD-ON Performing Organization Address City/[facility] Phon e Number [facility] - [address] [place], [place] [address] [facility] [place] [address] [facility] [address] Glucose, POCT (09/18/2021 9:46 PM ELECTRONIC DATA PROCESSING AUDITOR) Analysis Performed At Patho logist Time Signature Glucose, POCT, 127 70 - 140 09/18/2021 PCLX B mg/dL 11:27 PM ELECTRONIC DATA PROCESSING AUDITOR Last Intake 3-4 hours 09/18/2021 PCLX 11:27 PM ELECTRONIC DATA PROCESSING AUDITOR Specimen Anatomical Collection Method Collection Time Receive d Time (Source) Location / / Volume Laterality Blood 09/18/2021 9:46 PM ELECTRONIC DATA PROCESSING AUDITOR 11:28 PM ELECTRONIC DATA PROCESSING AUDITOR Unknown Provider LAB POCT ORDERABLES-MANUAL Performing Organization Address City/[facility] Phon e Number POC [facility] [address] [place] [address] [place] [address] [facility] [address] Glucose, POCT (09/18/2021 5:28 PM ELECTRONIC DATA PROCESSING AUDITOR) Analysis Performed At Patho logist Time Signature Glucose, POCT, 107 70 - 140 09/18/2021 PCLX B mg/dL 5:31 PM ELECTRONIC DATA PROCESSING AUDITOR Site Capillary 09/18/2021 PCLX 5:31 PM ELECTRONIC DATA PROCESSING AUDITOR Specimen Anatomical Collection Method Collection Time Receive d Time (Source) Location / / Volume Laterality Blood 09/18/2021 5:28 PM 5:31 ELECTRONIC DATA PROCESSING AUDITOR PM ELECTRONIC DATA PROCESSING AUDITOR Unknown Provider LAB POCT ORDERABLES-MANUAL Performing Organization Address City/State/ZIP Code Phon e Number POC [facility] [address] [place] [address] [facility] [place] [address] [place] [facility] [address] DX Abdomen Portable Anterior Posterior 1 View (09/18/2021 3:41 PM ELECTRONIC DATA PROCESSING AUDITOR) Anatomical Region Laterality Modality Abdomen, Abdominal RST LOS, Abdominal ARZ LOS, N/A Digital Radiography Abdominal FLA LOS Specimen (Source) Anatomical Collection Method Collection Time Re ceived Time Location / / Volume Laterality 09/18/2021 4:50 PM ELECTRONIC DATA PROCESSING AUDITOR Impressions 09/18/2021 4:51 PM ELECTRONIC DATA PROCESSING AUDITOR Scattered small bowel and colonic gas in a nonobstructive pattern. Since 09/06/2021 the NG tube has been removed. Linear atelect asis left lung base. Narrative 09/18/2021 4:51 PM ELECTRONIC DATA PROCESSING AUDITOR EXAM: ??DX ABDOMEN PORTABLE ANTERIOR POSTERIOR 1 VIEW Procedure Note Otf Adler M.D. - 09/18/2021Format ting of this note might be different from the original. EXAM: DX ABDOMEN PORTABLE ANTERIOR POSTE RIOR 1 VIEW IMPRESSION: Scattered small bowel and colonic gas in a nonobstructive pattern. Since 09/06/2021 the NG tube has been removed. Linear atelect asis left lung base. Raul Neil M.D. IMSherlyn DIAGNOSTIC IMAGING PROCE DURES SARS Coronavirus 2, RNA, Rapid POC, V Asymptomatic (09/18/2021 3:17 PM ELECTRONIC DATA PROCESSING AUDITOR) Patholo gist Method Time Signature SARS Undetected Undetected 09/18/2021 DTLR Coronavirus-2 3:37 PM ELECTRONIC DATA PROCESSING AUDITOR , RNA, Rapid POC, V Comment: Negative for SARS-CoV-2. The Cue COVID-19 test is a molecular loly t for SARS-CoV-2, the virus that causes COVID- 19. A Negative result means that the [employer] COV ID-19 test did not detect SARS-CoV-2 virus in your sample. [employer] COVID-19 test uses the uBeam nitoring System. This test has received Emergency Use Authorization (EUA) by the U.S. Food and Drug Administration (FDA) and is used per man ufacturer instructions. Performance characteristic s were verified by [facility] in a manner consistent with CLIA requirements. Fact sheets for this Emerg ency Use Authorization (EUA) can be found at the following links: Providers: https://Victrix.fintonic/documentation/prov iders.pdf Patients: [email or web address].fintonic/documentation/sulema ents.pdf SARS Coronavirus 2, Source Nasopharynx DEFAULT 09/18/2021 3:37 PM ELECTRONIC DATA PROCESSING AUDITOR DTLR Specimen Anatomical Collection Method Collection Time Receive d Time (Source) Location / / Volume Laterality Varies 09/18/2021 3:17 PM 3:17 (Nasopharynx) ELECTRONIC DATA PROCESSING AUDITOR PM ELECTRONIC DATA PROCESSING AUDITOR El Andrew M.D. LAB MICROBIOLOGY - GENERAL O RDERABLES Performing Organization Address City/State/ZIP Code Phon e Number PERFORMING LABS, REF [place] [address] INTERFACE Ref Interface [address] DTLR Performing Labs, [place] [address] Lactate (09/18/2021 3:12 PM ELECTRONIC DATA PROCESSING AUDITOR) P athologist Signature Lactate, P 1.3 0.5 - 2.2 09/18/2021 DTL mmol/L 4:16 PM ELECTRONIC DATA PROCESSING AUDITOR Specimen Anatomical Collection Method Collection Time Receive d Time (Source) Location / / Volume Laterality Blood (Blood, 09/18/2021 3:12 PM 09/18/19 3:58 Venous) ELECTRONIC DATA PROCESSING AUDITOR PM ELECTRONIC DATA PROCESSING AUDITOR Raul Neil M.D. LAB BLOOD NON ADD-ON Performing Organization Address City/State/ZIP Code Phon e Number [facility] - [address] [place], [place] [address] [facility] [place] [address] Laboratories-[facility] [address] (ABNORMAL) CBC with Differential, Blood (09/18/2021 3:12 PM ELECTRONIC DATA PROCESSING AUDITOR) Patholo gist Method Time Signature Hemoglobin 14.8 13.2 - 09/18/2021 DTL 16.6 g/dL 3:43 PM ELECTRONIC DATA PROCESSING AUDITOR Hematocrit 45.2 38.3 - 09/18/2021 DTL 48.6 % 3:43 PM ELECTRONIC DATA PROCESSING AUDITOR Erythrocytes 4.90 4.35 - 09/18/2021 DTL 5.65 3:43 PM ELECTRONIC DATA PROCESSING AUDITOR x10(12)/L MCV 92.2 78.2 - 09/18/2021 DTL 97.9 fL 3:43 PM ELECTRONIC DATA PROCESSING AUDITOR RBC Distrib Width 14.8 (H) 11.8 - 09/18/2021 DTL 14.5 % 3:43 PM ELECTRONIC DATA PROCESSING AUDITOR Platelet Count 364 (H) 135 - 317 09/18/2021 DTL x10(9)/L 3:43 PM ELECTRONIC DATA PROCESSING AUDITOR Leukocytes 6.9 3.4 - 9.6 09/18/2021 DTL x10(9)/L 3:43 PM ELECTRONIC DATA PROCESSING AUDITOR Neutrophils 3.83 1.56 - 09/18/2021 DTL 6.45 3:43 PM ELECTRONIC DATA PROCESSING AUDITOR x10(9)/L Lymphocytes 2.12 0.95 - 09/18/2021 DTL 3.07 3:43 PM ELECTRONIC DATA PROCESSING AUDITOR x10(9)/L Monocytes 0.59 0.26 - 09/18/2021 DTL 0.81 3:43 PM ELECTRONIC DATA PROCESSING AUDITOR x10(9)/L Eosinophils 0.32 0.03 - 09/18/2021 DTL 0.48 3:43 PM ELECTRONIC DATA PROCESSING AUDITOR x10(9)/L Basophils <0.03 0.01 - 09/18/2021 DTL 0.08 3:43 PM ELECTRONIC DATA PROCESSING AUDITOR x10(9)/L Specimen Anatomical Collection Method Collection Time Receive d Time (Source) Location / / Volume Laterality Blood (Blood, 09/18/2021 3:12 PM 09/18/19 3:36 Venous) ELECTRONIC DATA PROCESSING AUDITOR PM ELECTRONIC DATA PROCESSING AUDITOR Raul Neil M.D. LAB BLOOD ADD-ON Performing Organization Address City/State/ZIP Code Phon e Number [facility] - [address] [place], [place] [address] [facility] [place] [address] Laboratories-[facility] [address] Basic Metabolic Panel (09/18/2021 3:12 PM ELECTRONIC DATA PROCESSING AUDITOR) P athologist Signature Potassium, S 4.6 3.6 - 5.2 09/18/2021 DTL mmol/L 4:23 PM ELECTRONIC DATA PROCESSING AUDITOR Sodium, S 141 135 - 145 09/18/2021 DTL mmol/L 4:23 PM ELECTRONIC DATA PROCESSING AUDITOR Chloride, S 104 98 - 107 09/18/2021 DTL mmol/L 4:23 PM ELECTRONIC DATA PROCESSING AUDITOR Bicarbonate, S 24 22 - 29 09/18/2021 DTL mmol/L 4:23 PM ELECTRONIC DATA PROCESSING AUDITOR Anion Gap 13 7 - 15 09/18/2021 DTL 4:23 PM ELECTRONIC DATA PROCESSING AUDITOR BUN (Blood Urea 13 8 - 24 09/18/2021 DTL Nitrogen), S mg/dL 4:23 PM ELECTRONIC DATA PROCESSING AUDITOR Creatinine 1.04 0.74 - 09/18/2021 DTL 1.35 mg/dL 4:23 PM ELECTRONIC DATA PROCESSING AUDITOR eGFR-Non 86 >=60 09/18/2021 DTL Black/ mL/min/BSA 4:23 PM ELECTRONIC DATA PROCESSING AUDITOR [place] Comment: ----ADDITIONAL INFORMATION---- Estimated GFR calculated using the 2009 CKD_EPI creatinine equation. eGFR-Black/ >90 >=60 mL/min/BSA 2021 4:23 PM ELECTRONIC DATA PROCESSING AUDITOR DTL Comment: ----ADDITIONAL INFORMATION---- Estimated GFR calculated using the 2009 CKD_EPI creatinine equation. Calcium, Total, S 8.9 8.6 - 10.0 mg/dL 09/18/2021 4:23 PM ELECTRONIC DATA PROCESSING AUDITOR DTL Glucose, S 124 70 - 140 mg/dL 09/18/2021 4:23 PM ELECTRONIC DATA PROCESSING AUDITOR D TL Specimen Anatomical Collection Method Collection Time Receive d Time (Source) Location / / Volume Laterality Blood (Blood, 09/18/2021 3:12 PM 09/18/19 3:58 Venous) ELECTRONIC DATA PROCESSING AUDITOR PM ELECTRONIC DATA PROCESSING AUDITOR Raul Neil M.D. LAB BLOOD ADD-ON Performing Organization Address City/State/ZIP Code Phon e Number [facility] - [address] [place], [place] [address] [facility] [place] [address] Laboratories-[facility] [address] Interpretation of Outside CT Abdomen and or Pelvis (09/18/2021 3:02 PM ELECTRONIC DATA PROCESSING AUDITOR) Anatomical Region Laterality Modality Abdomen, Pelvis, Abdominal RST LOS, Abdominal ARZ LOS, N/A Computed Tomography Abdominal FLA LOS, Other Specimen (Source) Anatomical Collection Method Collection Time Re ceived Time Location / / Volume Laterality 09/18/2021 3:19 PM ELECTRONIC DATA PROCESSING AUDITOR Impressions 09/18/2021 3:37 PM ELECTRONIC DATA PROCESSING AUDITOR Small bowel dilatation, could represent partial obstruction. Could consider small bowel series for evaluation of NSAID enteropat hy. Narrative 09/18/2021 3:37 PM ELECTRONIC DATA PROCESSING AUDITOR EXAM: ??INTERPRETATION OF OUTSIDE CT ABDOMEN AND [...] Small Bowel Stricture Personal History - Primary Small Bowel Stricture Personal History documented in this encounter Admitting Diagnoses Diagnosis Small Bowel Stricture Personal History documented in this encounter Administered Medications Inactive Administered Medications - up to 3 most recent administrations Medication Order MAR Action Action Date Dose Rate Site acetaminophen tablet 500 mg Given 09/20/2021 8:10 PM ELECTRONIC DATA PROCESSING AUDITOR 500 mg (TYLENOL) 500 mg, oral, Every 4 hours PRN, headaches, Starting on 09/19/21 at 1704 Given 09/20/2021 4:22 AM ELECTRONIC DATA PROCESSING AUDITOR 500 mg Given 09/19/2021 5:51 PM ELECTRONIC DATA PROCESSING AUDITOR 500 mg aspirin chewable tablet 81 mg Given 09/21/2021 9:21 AM ELECTRONIC DATA PROCESSING AUDITOR 81 mg 81 mg, oral, Daily, First dose on 09/19/21 at 0900 barium 60 % (w/v) suspension (LIQUID Given 09/20/2021 3:18 PM 71 0 mL Mouth E-Z-PAQUE) ELECTRONIC DATA PROCESSING AUDITOR Code/trauma/sedation medication, Starting on 09/20/21 at 1518 buPROPion 12 hr tablet 100 mg (WELLBUTRI N SR) Given 09/21/2021 9:21 AM ELECTRONIC DATA PROCESSING AUDITOR 100 mg 100 mg, oral, Daily, First dose on 09/19/21 at 0900, Swallow whole. Do NOT crush, chew, or split tablet. enoxaparin injection 40 mg Given 09/21/2021 9:21 AM ELECTRONIC DATA PROCESSING AUDITOR 40 mg Left Upper Arm (LOVENOX) (Back) 40 mg, subcutaneous, Every 24 hours scheduled, First dose on 09/18/21 at 1500 Given 09/19/2021 8:07 AM ELECTRONIC DATA PROCESSING AUDITOR 40 mg Right Lower Abdomen Given 09/18/2021 4:08 PM ELECTRONIC DATA PROCESSING AUDITOR 40 mg Right Lower Abdomen gemfibroziL tablet 600 mg (LOPID) Given 09/21/2021 6:32 AM ELECTRONIC DATA PROCESSING AUDITOR 600 mg 600 mg, oral, 2 times daily before breakfast and dinner, First dose on Mon09/18/21 at 1600 HYDROmorphone (PF) injection 0.2 mg Given 09/18/2021 4:03 PM ELECTRONIC DATA PROCESSING AUDITOR 0.2 mg (DILAUDID) 0.2 mg, intravenous, Every 2 hour PRN, moderate pain or score 4-6 of 10, Starting on Mon09/18/21 at 1447 HYDROmorphone (PF) injection 0.2 mg Given 09/21/2021 9:18 AM ELECTRONIC DATA PROCESSING AUDITOR 0.2 mg (DILAUDID) 0.2 mg, intravenous, Every 4 hours PRN, moderate pain or score 4-6 of 10, Starting on Mon09/18/21 at 1659 Given 09/21/2021 4:26 AM ELECTRONIC DATA PROCESSING AUDITOR 0.2 mg Given 09/20/2021 8:19 PM ELECTRONIC DATA PROCESSING AUDITOR 0.2 mg HYDROmorphone (PF) injection 0.2 mg (DIL AUDID) 0.2 mg, intravenous, Every 4 hours PRN, moderate pain or score 4-6 of 10, Starting on Mon09/21/21 at 1127 HYDROmorphone tablet 1 mg (DILAUDID) 1 mg, oral, Every 4 hours PRN, moderate pain or score 4-6 of 10, Starting on Mon09/21/21 at 0913 insulin aspart U-100 Given 09/19/2021 8:13 AM ELECTRONIC DATA PROCESSING AUDITOR 2 Units Left Lower Abdomen injection 0-13 [...] lactated ringers New Bag 09/19/2021 12:22 AM ELECTRONIC DATA PROCESSING AUDITOR 125 mL/hr 125 mL/hr 125 mL/hr, intravenous, Continuous, Starting on Mon09/18/21 at 1500, For 12 hours New Bag 09/18/2021 4:07 PM ELECTRONIC DATA PROCESSING AUDITOR 125 mL/hr 125 mL/hr lactated ringers New Bag 09/19/2021 4:33 PM ELECTRONIC DATA PROCESSING AUDITOR 125 mL/hr 125 mL/hr 125 mL/hr, intravenous, Continuous, Starting on 09/19/21 at 0630, For 12 hours New Bag 09/19/2021 8:22 AM ELECTRONIC DATA PROCESSING AUDITOR 125 mL/hr 125 mL/hr New Bag 09/19/2021 6:35 AM ELECTRONIC DATA PROCESSING AUDITOR 125 mL/hr 125 mL/hr LORazepam tablet 0.5 mg (ATIVAN) Given 09/20/2021 2:23 AM ELECTRONIC DATA PROCESSING AUDITOR 0.5 mg 0.5 mg, oral, Bedtime PRN, sleep, Starting on 09/18/21 at 1442 melatonin tablet 3 mg Given 09/19/2021 11:44 PM ELECTRONIC DATA PROCESSING AUDITOR 3 mg 3 mg, oral, Bedtime PRN, sleep, Starting on 09/18/21 at 1536 metoprolol succinate 24 hr tablet 25 mg Given 09/21/2021 9:21 AM ELECTRONIC DATA PROCESSING AUDITOR 25 mg (TOPROL-XL) 25 mg, oral, 2 times daily, First dose on 09/18/21 at 2100, Do NOT crush or chew. Tablet may be split on score if needed. Given 09/20/2021 8:10 PM ELECTRONIC DATA PROCESSING AUDITOR 25 mg ondansetron ODT disintegrating tablet 4 mg Given 09/20/2021 4:16 PM ELECTRONIC DATA PROCESSING AUDITOR 4 mg (ZOFRAN-ODT) 4 mg, oral, Every 6 hours PRN, nausea, vomiting, Starting on 09/18/21 at 1449, When splitting ODT at bedside, handle with gloves and a pill splitter to prevent moisture contact. Given 09/18/2021 7:41 PM ELECTRONIC DATA PROCESSING AUDITOR [address] tablet 20 mg (PROTONIX) Given 09/21/2021 6:32 AM ELECTRONIC DATA PROCESSING AUDITOR 20 mg 20 mg, oral, Daily before breakfast, First dose on 09/19/21 at 1100, Swallow whole. Do NOT crush, chew, or split tablet. Given 09/20/2021 7:53 AM ELECTRONIC DATA PROCESSING AUDITOR 20 mg Given 09/19/2021 11:21 AM ELECTRONIC DATA PROCESSING AUDITOR 20 mg pregabalin capsule 100 mg (LYRICA) Given 09/21/2021 9:21 AM ELECTRONIC DATA PROCESSING AUDITOR 100 mg 100 mg, oral, 2 times daily, First dose on 09/18/21 at 2100 Given 09/20/2021 8:10 PM ELECTRONIC DATA PROCESSING AUDITOR 100 mg documented in this encounter Active and Recently Administered Medications Times are shown in ELECTRONIC DATA PROCESSING AUDITOR. Scheduled Medication Order 09/19/2021 09/20/2021 09/21/2021 aspirin [...] not met) 0755 (Not Given - Provider: Suri waddell RDerikNDerik - Reason: Order parameters not met - Comment: [phone] (Not Given - Provider: Suri Oscar RDerikNDerik - Reason: Order parameters not met - [...] 09 00 (Not Given - Provider: Brittany Romero R.N. [...] See Provider Order - Comment: held per md) 0700 (Not Given - Provider: Fritz Larson [...] COVID19 Pending 09/18/2021 09/18/2021 09/18/2021 3:37 PM ELECTRONIC DATA PROCESSING AUDITOR documented as of this encounter Care Teams Food Photographer Relationship Specialty Start Date End Date Elsewhere, Pcp PCP - General Internal Medicine 09/18/21 documented as of this encounter
--- OUTSIDE RECORDS SUMMARY | 2022-06-21 10:54 | XMS_ITS | Encounter Summary ---
:1975 Author Organization [facility] Address [address] [place] [address] Care Team Providers Name Role Phone Elsewhere, Pcp Primary Care Provider Unavailable Encounter Details Date Type Department Care Team Description 09/18/2021 Ancillary Procedure Department of Radiology John Neil, in [facility] tsering Donovan [address] [facility] [address] [place] [phone] (Wo rk) Social History Tobacco Use Types [...] More than 4 times per year 09/15/2021 christian services? 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 documented in this encounter Results Interpretation of Outside CT Abdomen and or Pelvis (09/18/2021 3:02 PM GRADES 1 THRU 6 HOME TEACHER) Anatomical Region Laterality Modality Abdomen, Pelvis, Abdominal RST LOS, Abdominal ARZ LOS, N/A Computed Tomography Abdominal FLA LOS, Other Specimen (Source) Anatomical Collection Method Collection Time Re ceived Time Location / / Volume Laterality 09/18/2021 3:19 PM GRADES 1 THRU 6 HOME TEACHER Impressions 09/18/2021 3:37 PM GRADES 1 THRU 6 HOME TEACHER Small bowel dilatation, could represent partial obstruction. Could consider small bowel series for evaluation of NSAID enteropat hy. Narrative 09/18/2021 3:37 PM GRADES 1 THRU 6 HOME TEACHER EXAM: ??INTERPRETATION OF OUTSIDE CT ABDOMEN AND [...] COVID19 Pending 09/18/2021 09/18/2021 09/18/2021 3:37 PM GRADES 1 THRU 6 HOME TEACHER documented as of this encounter Care Teams Conveyancer Relationship Specialty Start Date End Date Elsewhere, Pcp PCP - General Internal Medicine 09/18/21 documented as of this encounter
--- OUTSIDE RECORDS SUMMARY | 2022-06-21 10:54 | XMS_ITS | Encounter Summary ---
:1975 Author Organization [facility] Address [address] [place] [address] Care Team Providers Name Role Phone Elsewhere, [...] or relatives? How often do you attend congregational or More than 4 times per year 09/15/2021 congregational services? Do you belong to any clubs or Yes 09/15/2021 organizations such as congregational groups, unions, fraternal or athletic groups, or [...] at Date Recorded Male 09/15/2021 9:14 AM KNOCKOUT MAN documented as of this encounter Plan of [...] on filedocumented in this encounter Care Teams Spring Clipper Relationship Specialty Start Date End Date Elsewhere, Pcp PCP - General Internal Medicine 09/18/21 documented as of this encounter
--- OUTSIDE RECORDS SUMMARY | 2022-06-21 10:54 | XMS_ITS | Encounter Summary ---
:1975 Author Organization [facility] Address [address] [place] [address] Care Team Providers Name Role Phone Elsewhere, Pcp Primary Care Provider Unavailable Reason for Referral Outpatient (Routine) - Closed Specialty Diagnoses / Procedures Referred By Contact Refer red To Contact Diagnoses Obstruction Intestinal (HCC) Ynes Nguyen M.D. [facility] Procedures Double Balloon Assisted Enteroscopy - Lower [address] [place] [phone] Referral ID Status Reason Start Date Expiration Date Visits Requ ested Visits Authorized [id number] Closed 09/22/2021 09/22/2022 1 1 Reason for Visit Outpatient (Routine) - Closed Specialty Diagnoses / Procedures Referred By Contact Refer red To Contact Diagnoses Obstruction Intestinal (HCC) Ynes Nguyen M.D. [facility] Procedures Double Balloon Assisted Enteroscopy - Lower 200 [place] [address] Referral ID Status Reason Start Date Expiration Date Visits Requ ested Visits Authorized [id number] Closed 09/22/2021 09/22/2022 1 1 Encounter Details Date Type Department Care Team Description 10/13/2021 Hospital Division of Ynes Nguyen M.D. [address] [place] [phone] Obstruction Encounter Gastroenterology in Wolfgang James N, MATERIAL WORKER, WASTE REDUCTION COORDINATOR, MNA [address] [place] [phone] Intestinal ([facility] [place], [place] 200 [place] [phone] Social History Tobacco Use Types Packs/Day [...] or relatives? How often do you attend religion or More than 4 times per year 09/15/2021 sabianist services? Do you belong to any clubs or Yes 09/15/2021 organizations such as religion groups, unions, fraternal or athletic groups, or [...] slept in a senior care (including now)? Education Answer Date Recorded What is the highest level of school Associate degree: codey espinoza, 09/15/2021 you have completed or the highest technical, or vocational p nickram degree you have received? 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 eszopiclone (LUNESTA) 3 Take 3 mg by mouth at 0 mg tablet bedtime as needed for sleep. Take immediately before bedtime gemfibroziL (LOPID) 600 Take 600 mg by mouth 2 0 mg tablet (two) times a day before breakfast and dinner. glipiZIDE (GLUCOTROL XL) Take 10 mg by mouth 0 10 mg 24 hr tablet daily with breakfast. metoprolol succinate Take 25 mg by mouth [...] by mouth 0 100 mg tablet daily. aspirin 81 mg chewable Chew 81 mg daily. 0 tablet buPROPion (WELLBUTRIN Take 100 mg by mouth 0 SR) 100 mg 12 hr tablet daily. LORazepam (ATIVAN) 0.5 Take 1 mg by mouth at 0 mg tablet bedtime as needed (sleep). documented as of this encounter Plan of [...] Component Value Ref Test Analysis Performed At [facility] gist Range Method Time Signature 10/14/2021 [...] Organization Address City/State/ZIP Code Phon e Number [facility] - [address] [place], [place] [address] [facility] [address] [facility] [address] [facility] Device-Assisted Enteroscopy without Fluoroscopy (10/13/2021 7:40 AM CDT) Specimen (Source) Anatomical Collection Method Collection Time Re ceived Time Location / / Volume Laterality 10/13/2021 7:40 AM CDT Impressions [facility] - 10/13/2021 9:52 AM CDT Post-op Diagnoses: ? 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 the terminal ileum. Biopsied. Tat tooed. Hemoclip placed. NO stricture ? noted. ? - Hemoclip in the transverse colo n. Narrative [facility] - 10/13/2021 9:52 AM CDT [facility] Patient Name: Lawson Whitley Date of : 1975 Age: 46 Gender: Male Procedure Date: 10/13/2021 Procedure: ? Lower De vice-Assisted Enteroscopy without Fluoroscopy Providers: ? Wolf Salmeron MD Referring Provider: ?Ynes hagen Pre-op Diagnoses: [...] [id number] documented in this encounter Care Teams Distributing Clerk Relationship Specialty Start Date End Date Elsewhere, Pcp PCP - General Internal Medicine 09/18/21 documented as of this encounter
--- OUTSIDE RECORDS SUMMARY | 2022-06-21 10:54 | XMS_ITS | Encounter Summary ---
:1975 Author Organization [facility] Address [address] [place] [address] Care Team Providers Name Role Phone Elsewhere, Pcp Primary Care Provider Unavailable Reason for Visit Outpatient (Routine) - Canceled Specialty Diagnoses / Procedures Referred By Contact Refer red To Contact Diagnoses Other Intestinal Obstruction (HCC) Wolf Salmeron M.D. [facility] Procedures FL Fluoro Less Than 1 Hour [address] [place] [phone] Referral ID Status Reason Start Date Expiration Date Visits V isits Requested Authorized [id number] Canceled 10/13/2021 10/13/2022 1 1 Encounter Details Date Type Department Care Team Description 10/13/2021 Hospital Encounter Department of Wolf Salmeron Intestinal RadiologyLisbeth M.D. Obstruction (HCC) Building, in [address] [place] [address] [place] [phone] [place], [place] [phone] (Work) [phone] Social History Tobacco Use Types Packs/Day Years [...] or relatives? How often do you attend yarsani or More than 4 times per year 09/15/2021 christianity services? Do you belong to any clubs or Yes 09/15/2021 organizations such as yarsani groups, unions, fraternal or athletic groups, or [...] place to sleep or slept in a care home (including now)? Education Answer Date Recorded What is the highest level of school Associate degree: codey espinoza, 09/15/2021 you have completed or the highest technical, or vocational p dominic degree you have received? 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
--- OUTSIDE RECORDS SUMMARY | 2022-06-21 10:54 | XMS_ITS | Encounter Summary ---
:1975 Author Organization [facility] Address [address] [place] [address] Care Team Providers Name Role Phone Elsewhere, Pcp Primary Care Provider Unavailable Encounter Details Date Type Department Care Team Description 10/10/2021 Hospital Encounter Department of Wendy, Preproce dural Lab Exam Laboratory Medicine Ynes Tejeda M.D. in [place], [facility] [place] [address] [place], [place] [address] [place] [address] [place], [place] [phone] (Work) [phone] Social History Tobacco Use Types Packs/Day Years [...] or relatives? How often do you attend samaritan or More than 4 times per year 09/15/2021 buddhist services? Do you belong to any clubs or Yes 09/15/2021 organizations such as samaritan groups, unions, fraternal or athletic groups, or [...] or slept in a long-term (including now)? Education Answer Date Recorded What is the highest level of school Associate degree: codey espinoza, 09/15/2021 you have completed or the highest technical, or vocational p dominic degree you have received? 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 [id number] Drink 1st portion of 1 kit 0 09/22/2021 [id number] prep at 6 PM the (MOVIPREP) evening [...] RNA, V Asymptomatic (10/10/2021 10:51 AM CDT) [facility] Method Time Signature SARS-CoV-2 Swab, 10/10/2021 [...] pe rformed using the Aptima SARS-CoV-2 assay ([employer] on the [employer] tem under emergency use authorization (EUA) by the U.S. Food and Drug Administ ration. Fact sheets for this EUA assay can be fo und at the following links: For Healthcare Providers: https://www.fd a.gov/media/937302/download For Patients: https://www.fda.gov/media/ 333058/download Specimen Anatomical Collection Method Collection Time Receive d Time (Source) Location / / Volume Laterality Varies 10/10/2021 10:51 10/10/2021 5:20 (Nasopharynx) AM CDT PM CDT Ynes Nguyen M.D. LAB MICROBIOLOGY - GENERAL O RDERABLES Performing Organization Address City/State/ZIP Code Phon e Number [facility]- [address] [place] [address] [place] [address] System in [place] [address] [facility] documented in this encounter Visit Diagnoses Diagnosis Preprocedural Lab Exam documented in this encounter Additional Health Concerns Infection Onset Date Last Indicated Resolved Time COVID19 Pending 10/10/2021 10/10/2021 10/10/2021 10:06 PM CDT documented as of this encounter Care Teams Retail Branch Manager Relationship Specialty Start Date End Date Elsewhere, Pcp PCP - General Internal Medicine 09/18/21 documented as of this encounter
--- OUTSIDE RECORDS SUMMARY | 2022-06-21 10:54 | XMS_ITS | Encounter Summary ---
:1975 Author Organization [facility] Address [address] [place] [address] Care Team Providers Name Role Phone Elsewhere, Pcp Primary Care Provider Unavailable Encounter Details Date Type Department Care Team Description 09/22/2021 Clinical Communication Division of Wendy, Gastroenterology in Ynes Tejeda M.D. [place], [place] [address] [facility] [address] [place] [phone] Social History Tobacco Use Types Packs/Day Years [...] or relatives? How often do you attend denominational or More than 4 times per year 09/15/2021 roman catholic services? Do you belong to any clubs or Yes 09/15/2021 organizations such as denominational groups, unions, fraternal or athletic groups, or [...] slept in a senior living (including now)? Education Answer Date Recorded What is the highest level of school Associate degree: occupa tional, 09/15/2021 you have completed or the highest technical, or vocational p nickram degree you have received? 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 Food and Drug Administ ration. Fact sheets for this EUA assay can be fo und at the following links: For Healthcare Providers: https://www.fd a.gov/media/579821/download For Patients: https://www.fda.gov/media/ 150648/download Specimen Anatomical Collection Method Collection Time Receive d Time (Source) Location / / Volume Laterality Varies 10/10/2021 10:51 10/10/2021 5:20 (Nasopharynx) AM CDT PM CDT Yens Nguyen M.D. LAB MICROBIOLOGY - GENERAL O RDERABLES Performing Organization Address City/State/ZIP Code Phon e Number [facility]- [address] [phone] [facility] [place] [address] System in [place] 1025 [facility] documented in this encounter Visit Diagnoses Diagnosis Preprocedural Lab Exam - Primary documented in this encounter Care Teams Yeast Culture Operator Relationship Specialty Start Date End Date Elsewhere, Pcp PCP - General Internal Medicine 09/18/21 documented as of this encounter
--- OUTSIDE RECORDS SUMMARY | 2022-06-21 10:54 | XMS_ITS | Encounter Summary ---
:1975 Author Organization [facility] Address [address] [place] [address] Care Team Providers Name Role Phone Elsewhere, Pcp Primary Care Provider Unavailable Reason for Referral Outpatient (Routine) - Closed Specialty Diagnoses / Procedures Referred By Contact Refer red To Contact Diagnoses Obstruction Intestinal (HCC) Ynes Nguyen M.D. [facility] Procedures Double Balloon Assisted Enteroscopy - Lower [address] [place], [place] [phone] Referral ID Status Reason Start Date Expiration Date Visits Requ ested Visits Authorized [id number] Closed 09/22/2021 09/22/2022 1 1 OR MICROSOFT CONSULTANT Encounter Details Date Type Department Care Team Description 09/22/2021 Orders Only Division of Ynes Nguyen Obstruction Gastroenterology in [place] Tejeda Intestinal (HCC) [place], [place] [address] [place] [address] (Primary Dx) [address] [place] [phone] Social History Tobacco Use Types Packs/Day Years [...] 09/15/2021 organizations such as sabianism groups, unions, fraProper Cloth or athletic groups, or school groups? 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
--- OUTSIDE RECORDS SUMMARY | 2022-06-21 10:54 | XMS_ITS | Encounter Summary ---
:1975 Author Organization [facility] Address [address] [place] [address] Care Team Providers Name Role Phone Unavailable Primary Care Provider Unavailable Encounter Details Date Type Department Care Team Description 09/15/2021 Virtual Visit Division of Ynes Nguyen Gastroenterology clement Tejeda M.D. Intestinal ([facility]) [place], [place] [address] [facility] (Primary Dx) [address] [place] [phone] Social History Tobacco Use Types Packs/Day Years [...] More than 4 times per year 09/15/2021 yazdanism services? 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 - 09/15/2021 4:20 PM CST Gastroenterology and Hepatology Virtual Visit (ID) SUBJECTIVE DATE OF VISIT: 09/15/2021 This patient was virtually interviewed via real time audio in the patient's home by Ynes Nguyen M.D. at [facility]. The history and findings below are based on review of available medical records and a virtual conversation with the patient. This Virtual Visit was performed during the ID pandemic. REASON FOR VISIT Post-hospital follow-up for [...] nonspecific focal ileitis. He was seen at [facility] in GI previously in 2017 and at that time therewas not concern for inflammatory bowel disease (CT enterography was normal). Colonoscopy at that time was normal. He has undergone upper endoscopy once in the past in 2013 which was normal (no duodenalbiopsies performed). He has also undergone pill enteroscopy at [facility] which was unrevealing (unclear date). In [...] worsened resulting in his recent admission to [facility] from 09/07-09/08/21 (last prednisone dose was [...] ileitis. He was last seen here at [facility] in 2017 and at that time CT enterography and colonoscopy were normal. He has undergone upper endoscopy once in the past in 2013 which was normal, although no duodenal biopsies were performed. He has also undergone pill enteroscopy at [facility] which was unrevealing (unclear date). Other [...] and discussed with Drs. Bates and Bayron. HT CALCULATOR documented in this encounter Plan of Treatment Not on filedocumented as of this encounter Visit Diagnoses Diagnosis Obstruction Intestinal (HCC) - Primary documented in this encounter
--- OUTSIDE RECORDS SUMMARY | 2022-06-21 10:54 | XMS_ITS | Clinical Summary ---
:1975 Author Organization [facility] Address [address] [place] [address] Care Team Providers Name Role Phone Elsewhere, Pcp Primary Care Provider Unavailable Source Comments Patient records contain information from all sites at [facility]. For routine questions regarding patient records, call [phone] during business hours, M-F 8:00 AM - 5:00 PM Central Time. Record requests for emergency care only can be directed to [phone] at any time.[facility] Allergies Active Allergy Reactions Severity Noted Date [...] or relatives? How often do you attend shinto or More than 4 times per year 09/15/2021 hindu services? Do you belong to any clubs or Yes 09/15/2021 organizations such as shinto groups, unions, fraternal or athletic groups, or [...] place to sleep or slept in a group home (including now)? Education Answer Date Recorded What is the highest level of school Associate degree: codey espinoza, 09/15/2021 you have completed or the highest technical, or vocational p rogram degree you have received? 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 Last Filed Vital Signs Vital Sign Reading Time Taken Comments Blood Pressure 123/72 10/13/2021 10:30 AM CDT Pulse 96 10/13/2021 10:30 AM CDT Temperature 36.7 ??C (98.1 ??F) 10/13/2021 9:34 AM CDT Respiratory Rate 14 10/13/2021 10:30 AM CDT Oxygen Saturation 91% 10/13/2021 10:30 AM CDT Inhaled Oxygen Concentration - - Weight 119 kg (261 lb 11 oz) 09/18/2021 4:03 PM RESEARCH TECHNOLOGIST Height 185 cm (6' 0.84) 09/21/2021 11:02 AM RESEARCH TECHNOLOGIST Body Mass Index 34.68 09/18/2021 4:03 PM RESEARCH TECHNOLOGIST Plan of Treatment Health Maintenance Due Date [...] Blood 12/04/2021 09/06/2021 Pressure Check / Re-check Pneumococcal vaccine (0-64 02/16/2023 02/16/2022 years) (2 - PCV) Fasting Glucose for 09/21/2024 09/21/2021, 09/20/2021, Diabetes Screening 09/20/2021, Additional history exists Colonoscopy 09/13/2031 09/13/2021, 09/13/2021, 08/19/2016 Colorectal Cancer Screening 09/13/2031 Influenza Vaccine Completed 04/25/2022, 05/18/2021, 04/23/2021, Additional history exists HPV Vaccines Aged Out No longer elinereydab berna based on patient 's age to complete this topic Medical Devices Implanted Type Area Mapping Engineer Device Identifier Shelf Model / Expiration Serial / Date Lot Clp Hemo Cath [id number] - [id number] Hardware Cook Medic al [id number] 05/10/2024 [id number] / Implanted: Qty: 1 on 09/13/2021 by Wolf Blandon M.B., B.Ch., Ph.D. at [facility] [employer] / pins/screws [id number] /rods Clp Hemo Cath [id number] - [id number] Hardware N/A: Cook Medic al [id number] 11/27/2023 [id number] / Implanted: Qty: 1 on 10/13/2021 by Wolf Salmeron M.D. at [facility] [employer] / pins/screws [id number] /rods Insurance Payer Benefit Plan / Subscriber ID Effective Dates Phone Addre ss Type Group [employer]UE [employer] BCBS [id number] 2021-Presen [phone] [address] PPO BLUE SHIELD [address] [place] [address] Advance Directives For more information, please contact: [phone] Latest Code Status on File Code Status Date Activated Date Inactivated Comments Full Code 09/18/2021 2:51 PM 09/21/2021 8:46 PM Question Answer Comments Full Code: Discussed Code Status History Code Status Date Activated Date Inactivated Comments Full Code 09/06/2021 4:18 PM 09/08/2021 4:06 PM Question Answer Comments Full Code: Discussed Care Teams Distribution Analyst Relationship Specialty Start Date End Date Elsewhere, Pcp PCP - General Internal Medicine 09/18/21
--- OUTSIDE RECORDS SUMMARY | 2022-06-21 10:54 | XMS_ITS | Clinical Summary ---
:1975 Author Organization [employer] [facility] [place] [address] Care Team Providers Name Role Phone Mark [...] Due Date Last Done Comments Tdap 1986 HIV for age 15-65 1990 Hepatitis C screening for age 18-79 1993 Depression screening for age 12+ 05/11/2017 05/11/2016 BMI (ht and wt on same day) for age 0803/02/2019 03/02/2018, 05/11/2016 18+ Colonoscopy through age 75 2020 Lipids for age 45-75 2020 COVID-19 vaccine series (3 - Booster 03/04/2021 01/07/2021, 11/13/2020 for Pfizer series) Influenza for age 9-49 03/24/2022 05/06/2016, 05/06/2013, 07/09/2009 Tetanus booster 08/04/2025 08/04/2015 Results Not on filefrom Last 3 Months Insurance Payer Benefit Plan / Subscriber ID Effective Dates Phone Addre ss Type Group BLUE CROSS BLUE CROSS OF [id number] 2021-Present [address] [address] [place] [address] Advance Directives Latest Code Status on File Code Status Date Activated Date Inactivated Comments Full Code 11/26/2021 8:41 AM 12/08/2021 8:14 PM Code Status Discussion: Reviewed Preferences Full Code 10/24/2021 10:23 PM 10/29/2021 4:24 PM Code Status Discussion: Discussed Care Teams Retread Mold Operator Relationship Specialty Start Date End Date Mark Gallegos MD PCP - General Family Practice 07/30/21 [address] [facility] [place] [address]
--- OUTSIDE RECORDS SUMMARY | 2022-06-21 10:54 | XMS_ITS | Encounter Summary ---
:1975 Author Organization [facility] Address [address] [place] [address] Care Team Providers Name Role Phone Elsewhere, Pcp Primary Care Provider Unavailable Encounter Details Date Type Department Care Team Description 10/13/2021 Anesthesia Event Division of Gastroenterology Wolfgang Pena APRN, MILLSTONE CLEANER, MNA [address] [place] [phone] in [facility] Zay Phoenix M.D. [address] [place] [phone] [address] [place] [phone] Anesthesia Record Procedure Summary Procedure Name [...] h andoff to the receiving staff during [facility] ch we 1. Identified the patient [...] Placement Time: 729; Bernie Mojica Mal ia M, R.N. 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 documented as of this encounter OR Notes Anesthesia Postprocedure Evaluation - Wolfgang James APRN, CRNA, MNA - 10/13/2021 9:33 AM CDT Patient: Lawson Whitley Procedure Summary Date: 10/13/21 Room / Location: Division of Gastroenterology in [place], [place] Anesthesia Start: 806 Anesthesia Stop: 932 [...] ETT location: oral VL device: glide scope [place] scope blade size: 4 Adult ETT distance [...] (HCC) [K56.609] Location: Division of Gastroenterology in [place], [place] Pertinent components of the patient's history [...] with patient /legal guardian or through an bilingual interpreter. The use of blood products not discussed [...] AM Performed by: Wolfgang James APRN, C RNA, MNA Authorized by: Wolfgang James APRN, CRNA, MNA Patient location during procedure: OR / Procedure Area PROCEDURE DETAILS: Final airway type: video laryngoscope Laryngeal Manipulation: no ?? Final best view of glottic structures - Cormack/Lehane Score: grade 1 ETT location: oral VL device: glide scope [place] scope blade size: 4 Adult ETT distance [...] no complications ATTESTATION STATEMENT Wolfgang Patria James WASTE PAPER HAMMERMILL OPERATOR, MILLSTONE CLEANER, MNA ANESTHESIA ORDERABLES documented in this encounter [...] Intra-op documented in this encounter Care Teams Traffic Engineering Director Relationship Specialty Start Date End Date Elsewhere, Pcp PCP - General Internal Medicine 09/18/21 documented as of this encounter
--- OUTSIDE RECORDS SUMMARY | 2022-06-21 10:54 | XMS_ITS | Encounter Summary ---
:1975 Author Organization [facility] Address [address] [place] [address] Care Team Providers Name Role Phone Unavailable Primary Care Provider Unavailable Encounter Details Date Type Department Care Team Description 09/16/2021 Clinical Communication Division of Wendy, Gastroenterology in Ynes Tejeda M.D. [place], [place] [address] [facility] [address] [place] [phone] Social History Tobacco Use Types Packs/Day Years [...] or relatives? How often do you attend alevism or More than 4 times per year 09/15/2021 yazidi services? Do you belong to any clubs or Yes 09/15/2021 organizations such as alevism groups, unions, fraternal or athletic groups, or [...] place to sleep or slept in a penitentiary (including now)? Education Answer Date Recorded What is the highest level of school Associate degree: occupa alexis, 09/15/2021 you have completed or the highest technical, or vocational p nickram degree you have received? 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 Mr. Whitley was in agreement with and expressed understanding of the above plan. All of his questions were answered to the best of my ability. Ynes Nguyen M.D. Gastroenterology Fellow 09/16/2021 RAM MANAGER documented in this encounter Plan of Treatment Not on filedocumented as of this encounter Visit Diagnoses Diagnosis Obstruction Intestinal (HCC) - Primary documented in this encounter
--- OUTSIDE RECORDS SUMMARY | 2022-06-21 10:55 | XMS_ITS | Encounter Summary ---
:1975 Author Organization [facility] Address [address] [place] [address] Care Team Providers Name Role Phone Unavailable Primary Care Provider Unavailable Encounter Details Date Type Department Care Team Description 09/06/2021 Ancillary Procedure Department of Radiology John Neil in [facility] tsering Donovan [address] [facility] [address] [place] [phone] (Wo rk) Social History Tobacco Use Types [...] or relatives? How often do you attend taoism or More than 4 times per year 09/15/2021 taoist services? Do you belong to any clubs or Yes 09/15/2021 organizations such as taoism groups, unions, fraternal or athletic groups, or [...] at Date Recorded Male 09/15/2021 9:14 AM PC INSTALLATION ENGINEER documented as of this encounter Plan of Treatment Not on filedocumented as of this encounter Procedures Procedure Name Priority Date/Time Associated Comments Diagnosis INTERPRETATION OF RAD - Routine 09/06/2021 4:23 Result s for OUTSIDE CT ABDOMEN (most inpatients PM PC INSTALLATION ENGINEER this procedure AND OR PELVIS and all are in the outpatients) results section. documented in this encounter Results Interpretation of Outside CT Abdomen and or Pelvis (09/06/2021 4:23 PM PC INSTALLATION ENGINEER) Anatomical Region Laterality Modality Abdomen, Pelvis, Abdominal RST LOS, Abdominal ARZ LOS, N/A Computed Tomography Abdominal FLA LOS, Other Specimen (Source) Anatomical Collection Method Collection Time Re ceived Time Location / / Volume Laterality 09/06/2021 6:03 PM PC INSTALLATION ENGINEER Impressions 09/06/2021 6:39 PM PC INSTALLATION ENGINEER 1. Findings compatible with Crohn's disease. At least low-grade mechanical small bowel obstruction related to narrowed/strictured small bow el disease. 2. Portal venous gas in the liver withou t definite source although the stomach is suggested given additional gas present in portal vessels about the stomach. Narrative 09/06/2021 6:39 PM PC INSTALLATION ENGINEER EXAM: ??INTERPRETATION OF OUTSIDE CT ABDOMEN AND [...] of Outside CT Chest (09/06/2021 4:23 PM PC INSTALLATION ENGINEER) Anatomical Region Laterality Modality Chest, Thoracic RST LOS, Thoracic ARZ LOS, Thoracic N/A Computed Tomography FLA LOS, Other, Body Specimen (Source) Anatomical Collection Method Collection Time Re ceived Time Location / / Volume Laterality 09/06/2021 6:03 PM PC INSTALLATION ENGINEER Impressions 09/06/2021 6:39 PM PC INSTALLATION ENGINEER 1. Findings compatible with Crohn's disease. At least low-grade mechanical small bowel obstruction related to narrowed/strictured small bow el disease. 2. Portal venous gas in the liver withou t definite source although the stomach is suggested given additional gas present in portal vessels about the stomach. Narrative 09/06/2021 6:39 PM PC INSTALLATION ENGINEER EXAM: ??INTERPRETATION OF OUTSIDE CT ABDOMEN AND [...]
--- OUTSIDE RECORDS SUMMARY | 2022-06-21 10:55 | XMS_ITS | Encounter Summary ---
:1975 Author Organization [facility] Address [address] [place] [address] Care Team Providers Name Role Phone Unavailable Primary Care Provider Unavailable Encounter Details Date Type Department Care Team Description 09/07/2021 Clinical Communication Division of Wendy, Gastroenterology in Ynes Tejeda M.D. [place], [place] [address] [facility] [address] [place] [phone] Social History Tobacco Use Types Packs/Day Years [...] or relatives? How often do you attend uatsdin or More than 4 times per year 09/15/2021 worship services? Do you belong to any clubs or Yes 09/15/2021 organizations such as uatsdin groups, unions, fraternal or athletic groups, or [...] place to sleep or slept in a [place] (including now)? 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 This result does [...] Drug Administration an d is used per production scheduler's instructions. Performance characteristics were verified by [facility] in a manner consistent with CLIA requirements. Visit the CDC website: https://www.cdc.g ov/coronavirus/ for the most recent guidelines on Coron avirus testing. Fact Sheet for Healthcare Providers: https://www.fda.gov/media/977274/downloa d Fact Sheet for Patients: https://www.fda.gov/media/942162/downloa d Specimen Anatomical Collection Method Collection Time Receive d Time (Source) Location / / Volume Laterality Varies 09/10/2021 12:49 09/10/2021 1:24 (Nasopharynx) PM SALES COMPENSATION ANALYST PM SALES COMPENSATION ANALYST Ynes Nguyen M.D. LAB MICROBIOLOGY - GENERAL O RDERABLES Performing Organization Address City/State/ZIP Code Phon e Number [facility] - [address] [place], [place] [address] [facility] [place] [address] [facility] [address] documented in this encounter Visit Diagnoses Diagnosis Preprocedural Lab Exam - Primary documented in this encounter
--- OUTSIDE RECORDS SUMMARY | 2022-06-21 10:55 | XMS_ITS | Encounter Summary ---
:1975 Author Organization [facility] Address [address] [place] [address] Care Team Providers Name Role Phone Unavailable Primary Care Provider Unavailable Encounter Details Date Type Department Care Team Description 09/09/2021 Clinical Communication Division of Wendy, Gastroenterology in Ynes Tejeda M.D. [place], [place] [address] [facility] [address] [place] [phone] Social History Tobacco Use Types Packs/Day Years [...] More than 4 times per year 09/15/2021 methodist services? Do you belong to any clubs [...] place to sleep or slept in a [facility] (including now)? 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
--- OUTSIDE RECORDS SUMMARY | 2022-06-21 10:55 | XMS_ITS | Encounter Summary ---
:1975 Author Organization [facility] Address [address] [place] [address] Care Team Providers Name Role Phone Unavailable [...] More than 4 times per year 09/15/2021 spiritism services? Do you belong to any clubs [...] slept in a nursing home (including now)? Sex Assigned at Date Recorded Male 09/15/2021 9:14 AM BOW MAKER CUSTOM documented as of this encounter Plan of Treatment Not on filedocumented as of this encounter Procedures Procedure Name Priority Date/Time Associated Comments Diagnosis GASTROENTEROLOGY IMAGE Routine 09/13/2021 8:50 Re sults for this EXAM AM BOW MAKER CUSTOM procedure are i n the results section. documented in this encounter Results Colonoscopy-Gastroenterology Image Exam (09/13/2021 8:50 AM BOW MAKER CUSTOM) Specimen (Source) Anatomical Collection Method Collection Time Re ceived Time Location / / Volume Laterality 09/13/2021 8:46 AM BOW MAKER CUSTOM Narrative IIMS - 09/13/2021 9:48 AM BOW MAKER CUSTOM This order has been created and auto-finalized [...]
--- OUTSIDE RECORDS SUMMARY | 2022-06-21 10:55 | XMS_ITS | Encounter Summary ---
:1975 Author Organization [facility] Address [address] [place] [address] Care Team Providers Name Role Phone Unavailable [...] or relatives? How often do you attend methodist or More than 4 times per year 09/15/2021 yazidism services? 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
--- OUTSIDE RECORDS SUMMARY | 2022-06-21 10:55 | XMS_ITS | Encounter Summary ---
:1975 Author Organization [facility] Address [address] [place] [address] Care Team Providers Name Role Phone Unavailable Primary Care Provider Unavailable Encounter Details Date Type Department Care Team Description 09/06/2021 Ancillary Procedure Department of Radiology John Neil in [facility] tsering Donovan [address] [facility] [address] [place] [phone] (Wo rk) Social History Tobacco Use Types [...] More than 4 times per year 09/15/2021 latter day services? Do you belong to any clubs [...] at Date Recorded Male 09/15/2021 9:14 AM C++ PROFESSOR documented as of this encounter Plan of Treatment Not on filedocumented as of this encounter Procedures Procedure Name Priority Date/Time Associated Comments Diagnosis INTERPRETATION OF RAD - Routine 09/06/2021 4:23 Result s for OUTSIDE CT CHEST (most inpatients PM C++ PROFESSOR this pr ocedure and all are in the outpatients) results section. documented in this encounter Results Interpretation of Outside CT Abdomen and or Pelvis (09/06/2021 4:23 PM C++ PROFESSOR) Anatomical Region Laterality Modality Abdomen, Pelvis, Abdominal RST LOS, Abdominal ARZ LOS, N/A Computed Tomography Abdominal FLA LOS, Other Specimen (Source) Anatomical Collection Method Collection Time Re ceived Time Location / / Volume Laterality 09/06/2021 6:03 PM C++ PROFESSOR Impressions 09/06/2021 6:39 PM C++ PROFESSOR 1. Findings compatible with Crohn's disease. At least low-grade mechanical small bowel obstruction related to narrowed/strictured small bow el disease. 2. Portal venous gas in the liver withou t definite source although the stomach is suggested given additional gas present in portal vessels about the stomach. Narrative 09/06/2021 6:39 PM C++ PROFESSOR EXAM: ??INTERPRETATION OF OUTSIDE CT ABDOMEN AND [...] of Outside CT Chest (09/06/2021 4:23 PM C++ PROFESSOR) Anatomical Region Laterality Modality Chest, Thoracic RST LOS, Thoracic ARZ LOS, Thoracic N/A Computed Tomography FLA LOS, Other, Body Specimen (Source) Anatomical Collection Method Collection Time Re ceived Time Location / / Volume Laterality 09/06/2021 6:03 PM C++ PROFESSOR Impressions 09/06/2021 6:39 PM C++ PROFESSOR 1. Findings compatible with Crohn's disease. At least low-grade mechanical small bowel obstruction related to narrowed/strictured small bow el disease. 2. Portal venous gas in the liver withou t definite source although the stomach is suggested given additional gas present in portal vessels about the stomach. Narrative 09/06/2021 6:39 PM C++ PROFESSOR EXAM: ??INTERPRETATION OF OUTSIDE CT ABDOMEN AND [...]
--- OUTSIDE RECORDS SUMMARY | 2022-06-21 10:55 | XMS_ITS | Encounter Summary ---
:1975 Author Organization [facility] Address [address] [place] [address] Care Team Providers Name Role Phone Unavailable Primary Care Provider Unavailable Reason for Visit Auth/Cert Specialty Diagnoses / Procedures Referred By Contact Refer red To Contact Diagnoses Obstruction Intestinal (HCC) Procedures COLONOSCOPY Referral ID Status Reason Start Date Expiration Date Visits Requ ested Visits Authorized [id number] 1 1 Encounter Details Date Type Department Care Team Description 09/13/2021 Anesthesia Event Division of Gastroenterology Melody more APRN, CLIFF, DNAP [address] [place] [phone] in [facility] Cash Morris APRN, CLIFF, D.N.P. [address] [place] [phone] [place] [phone] Anesthesia Record Procedure Summary Procedure [...] h andoff to the receiving staff during [facility] ch we 1. Identified the patient [...] More than 4 times per year 09/15/2021 synagogue services? Do you belong to any clubs [...] place to sleep or slept in a [facility] (including now)? Sex Assigned at Date Recorded Male 09/15/2021 9:14 AM INSOLE TOE SNIPPING MACHINE OPERATOR documented as of this encounter OR Notes Anesthesia Postprocedure Evaluation - Cash Morris APRN, CRNA, D.N.P. - 09/13/2021 9:41 AM CST Patient: Lawson Whitley Procedure Summary Date: 09/13/21 Room / Location: Division of Gastroenterology in [place], [place] Anesthesia Start: 907 Anesthesia Stop: 940 [...] Post Op nausea/vomiting: none Hydration status: euvolemic LE TOE SNIPPING MACHINE OPERATOR Anesthesia Preprocedure Evaluation - Cash Morris APRN, CRNA, Rylan.N.P. - 09/13/2021 8:42 AM CST Preprocedure Anesthesia & H&P Assessment Procedure Summary Date/Time: 09/13/21 0915 Scheduled providers: Morris, Cash M, SENIOR TECHNICAL EDITOR, SALES SUPPORT ASSISTANT, D.N.P. Procedure: COLONOSCOPY Diagnosis: Obstruction Intestinal (HCC) [K56.609] Obstruction Intestinal (HCC) [K56.609] Location: Division of Gastroenterology in [place], [place] Pertinent components of the patient's history [...] with patient /legal guardian or through an emergency response officer. The use of blood products not discussed Approval to Proceed: approved for anesthesia LE TOE SNIPPING MACHINE OPERATOR documented in this encounter Plan of Treatment Not on filedocumented as of this encounter Visit Diagnoses Not on filedocumented in this encounter Administered Medications Inactive Administered Medications - up to 3 most recent administrations Medication Order MAR Action Action Date Dose Rate Site fentaNYL injection (SUBLIMAZE) Given 09/13/2021 9:15 AM INSOLE TOE SNIPPING MACHINE OPERATOR 25 mcg intravenous, As needed, Starting on Mon09/13/21 at 0912, Anesthesia Intra-op Given 09/13/2021 9:12 AM INSOLE TOE SNIPPING MACHINE OPERATOR 50 mcg lactated ringers New Bag 09/13/2021 9:09 AM INSOLE TOE SNIPPING MACHINE OPERATOR intravenous, Continuous Infusion: Per Instructions PRN, Starting on Mon09/13/21 at 0909, Anesthesia Intra-op lidocaine (PF) (cardiac) injection Given 09/13/2021 9:12 AM INSOLE TOE SNIPPING MACHINE OPERATOR 100 mg intravenous, As needed, Starting on Mon09/13/21 at 0912, Anesthesia Intra-op ondansetron (PF) injection (ZOFRAN) Given 09/13/2021 9:12 AM INSOLE TOE SNIPPING MACHINE OPERATOR 4 mg intravenous, As needed, Starting on Mon09/13/21 at 0912, Anesthesia Intra-op propofol 10 mg/mL infusion Rate/Dose 09/13/2021 9:29 100 mcg/kg/min 70.56 (DIPRIVAN) Change AM INSOLE TOE SNIPPING MACHINE OPERATOR mL/hr intravenous, Continuous Infusion: Per Instructions PRN, Starting on Mon09/13/21 at 0909, Anesthesia Intra-op New Bag 09/13/2021 9:24 AM INSOLE TOE SNIPPING MACHINE OPERATOR 200 mcg/kg/min 141.12 mL/hr New Bag 09/13/2021 9:09 AM INSOLE TOE SNIPPING MACHINE OPERATOR 200 mcg/kg/min 141.12 mL/hr propofoL injection (DIPRIVAN) Given 09/13/2021 9:15 AM INSOLE TOE SNIPPING MACHINE OPERATOR 30 mg intravenous, As needed, Starting on Mon09/13/21 at 0909, Anesthesia Intra-op Given 09/13/2021 9:13 AM INSOLE TOE SNIPPING MACHINE OPERATOR 30 mg Given 09/13/2021 9:11 AM INSOLE TOE SNIPPING MACHINE OPERATOR 30 mg documented in this encounter
--- OUTSIDE RECORDS SUMMARY | 2022-06-21 10:55 | XMS_ITS | Encounter Summary ---
:1975 Author Organization [facility] Address [address] [place] [address] Care Team Providers Name Role Phone Unavailable Primary Care Provider Unavailable Reason for Referral MRI/CAT/PET Scan (Routine) - Closed Specialty Diagnoses / Procedures Referred By Contact Refer red To Contact Radiology Diagnoses Obstruction Intestinal (HCC) Ynes Nguyen M.D. [facility] Procedures CT Abdomen Pelvis Enterography with IV Contrast [address] [place] [phone] Referral ID Status Reason Start Date Expiration Date Visits Requ ested Visits Authorized [id number] Closed 09/07/2021 09/07/2022 1 1 NING SUPPORT ASSISTANT Reason for Visit MRI/CAT/PET Scan (Routine) - Closed Specialty Diagnoses / Procedures Referred By Contact Refer red To Contact Radiology Diagnoses Obstruction Intestinal (HCC) Ynes Nguyen M.D. [facility] Procedures CT Abdomen Pelvis Enterography with IV Contrast [address] [place] [phone] Referral ID Status Reason Start Date Expiration Date Visits Requ ested Visits Authorized [id number] Closed 09/07/2021 09/07/2022 1 1 Encounter Details Date Type Department Care Team Description 09/10/2021 Hospital Encounter Department of [facility] Radiology, Orlando Tejeda M.D. Intestinal (HCC) Building, in [address] [place] [address] 200 [facility] [address] [place], [place] [phone] (Work) [phone] Social History Tobacco Use Types Packs/Day Years [...] More than 4 times per year 09/15/2021 zoroastrian services? Do you belong to any clubs [...] place to sleep or slept in a [facility] (including now)? Sex Assigned at Date Recorded Male 09/15/2021 9:14 AM LEARNING SUPPORT ASSISTANT documented as of this encounter Last Filed Vital Signs Vital Sign Reading Time Taken Comments Blood Pressure - - Pulse - - Temperature - - Respiratory Rate - - Oxygen Saturation - - Inhaled Oxygen Concentration - - Weight - - Height 185.4 cm (6' 1) 09/10/2021 11:24 AM LEARNING SUPPORT ASSISTANT Body Mass Index - - documented in [...] by mouth 0 100 mg tablet daily. [id number] Drink 1st portion of 1 kit 0 09/09/2021 [id number]-SGi-asb-C prep at 6 PM the (MOVIPREP) 100-7.5-2.691 [...] and as specified in medication reference document. NING SUPPORT ASSISTANT documented in this encounter Plan of Treatment Not on filedocumented as of this encounter Procedures Procedure Name Priority Date/Time Associated Comments Diagnosis CT ABDOMEN PELVIS RAD - Routine 09/10/2021 12:36 Obstruction Resul ts for ENTEROGRAPHY WITH (most inpatients PM LEARNING SUPPORT ASSISTANT Intestinal (HCC) th is procedure IV CONTRAST and all are in the outpatients) results section. documented in this encounter Results CT Abdomen Pelvis Enterography with IV Contrast (09/10/2021 12:36 PM LEARNING SUPPORT ASSISTANT) Anatomical Region Laterality Modality Abdomen, Pelvis, Abdominal RST LOS, N/A Comp uted Tomography, Computed Abdominal ARZ LOS, Abdominal FLA LOS Lakhwinder ography Specimen (Source) Anatomical Collection Method Collection Time Re ceived Time Location / / Volume Laterality 09/10/2021 12:35 PM LEARNING SUPPORT ASSISTANT Impressions 09/10/2021 1:22 PM LEARNING SUPPORT ASSISTANT 1. Interval resolution of small bowel obstruction. 2. No convincing evidence of Crohn's dis ease involving the small bowel. 3. Given the history of NSAID use and fi ndings on the comparison study suggesting the possibility of obstructing diaphragms, small bowel seri es could be performed for further evaluation. Narrative 09/10/2021 1:22 PM LEARNING SUPPORT ASSISTANT EXAM: ??CT ABDOMEN PELVIS ENTEROGRAPHY WITH IV [...] mg iodine/mL solution Given 09/10/2021 12:25 PM LEARNING SUPPORT ASSISTANT 200 mL 1-200 mL (OMNIPAQUE) 1-200 mL, intravenous, Once in imaging, contrast, Starting on Mon09/10/21 at 1124, For 1 dose, Imaging Protocol Orders, Dose per Radiant Medication Guidelines sodium chloride (PF) 0.9 % injection 1-1 00 mL Given 09/10/2021 12:25 PM LEARNING SUPPORT ASSISTANT 50 mL 1-100 mL, intravenous, Once, On Mon09/10/21 at 1130, For 1 dose, Imaging Protocol Orders documented in this encounter Additional Health Concerns Infection Onset Date Last Indicated Resolved Time COVID19 Pending 09/10/2021 09/10/2021 09/10/2021 4:32 PM LEARNING SUPPORT ASSISTANT documented as of this encounter
--- OUTSIDE RECORDS SUMMARY | 2022-06-21 10:55 | XMS_ITS | Encounter Summary ---
:1975 Author Organization [facility] Address [address] [place] [phone] Care Team Providers Name Role Phone Unavailable Primary Care Provider Unavailable Reason for Referral Outpatient (Routine) - Closed Specialty Diagnoses / Procedures Referred By Contact Refer red To Contact Diagnoses Obstruction Intestinal (HCC) Ynes Nguyen M.D. [facility] Procedures Colonoscopy [address] [place] [phone] Referral ID Status Reason Start Date Expiration Date Visits Requ ested Visits Authorized [id number] Closed 09/07/2021 09/07/2022 1 1 S TEACHER Reason for Visit Auth/Cert Specialty Diagnoses / Procedures Referred By Contact Refer red To Contact Diagnoses Obstruction Intestinal (HCC) Procedures COLONOSCOPY Referral ID Status Reason Start Date Expiration Date Visits Requ ested Visits Authorized [id number] 1 1 Encounter Details Date Type Department Care Team Description 09/13/2021 Hospital Encounter Division of Sir carlos Nguyen M.D. [address] [place] [phone] Obstruction Gastroenterology in [place] APRN, CLIFF, D.N.P. [address] [place] [phone] Intestinal (HCC) [place], [place] [address] [place] [phone] Social History Tobacco Use Types Packs/Day [...] More than 4 times per year 09/15/2021 evangelical services? Do you belong to any clubs [...] or slept in a intermediate (including now)? 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 TEACHER documented as of this encounter Last Filed Vital Signs Vital Sign Reading Time Taken Comments Blood Pressure 115/72 09/13/2021 10:45 AM DRUMS TEACHER Pulse 75 09/13/2021 10:49 AM DRUMS TEACHER Temperature 36.8 ??C (98.2 ??F) 09/13/2021 9:41 AM DRUMS TEACHER Respiratory Rate 13 09/13/2021 10:49 AM DRUMS TEACHER Oxygen Saturation 94% 09/13/2021 10:49 AM DRUMS TEACHER Inhaled Oxygen Concentration - - Weight 118 kg (259 lb 4.2 oz) 09/13/2021 9:01 AM DRUMS TEACHER Height - - Body Mass Index 34.21 09/10/2021 11:24 AM DRUMS TEACHER documented in this encounter Medications at Time [...] by mouth 0 100 mg tablet daily. [id number] Drink 1st portion of 1 kit 0 09/09/2021 [id number]-VhXs-TDf-asb-C prep at 6 PM the (MOVIPREP) 100-7.5-2.691 evening before. 2nd gram per packet portion must be started 3 hours before and finished 2 hours prior to report time documented as of this encounter Plan of Treatment Not on filedocumented as of this encounter Procedures Procedure Name Priority Date/Time Associated Diagnosis Comme nts SURGICAL PATHOLOGY Routine 09/13/2021 9:20 AM Res ults for this DRUMS TEACHER procedure are i n the results section. COLONOSCOPY Routine 09/13/2021 8:46 AM Obstruction Results f or this DRUMS TEACHER Intestinal (HCC) procedure a re in the results section. COLONOSCOPY Routine 09/13/2021 8:46 AM Obstruction DRUMS TEACHER Intestinal (HCC) documented in this encounter Results Surgical Pathology (09/13/2021 9:20 AM DRUMS TEACHER) Component Value Ref Test Analysis Performed At [facility] Range Method Time Signature 09/14/2021 DTL 11:55 AM DRUMS TEACHER Participated in Vilma Rodríguez 09/14/2021 DTL the [place], Ph.D. 11:55 AM Interpretation -Pathology DRUMS TEACHER Resident Report Thad Rivera M.D. 09/14/2021 DTL electronically 11:55 AM signed by DRUMS TEACHER I verify that I have examined all relevant slides/materials for the specimen(s) and rendered or confirmed the diagnosis. Gross Description A: ?? Received in formalin labeled with the patie nt's name, 09/14/2021 DTL medical record number, and ileum-terminal ileum are seven 11:55 AM pale [id number]-hlqa-swl irregular soft tissues, ranging from DRUMS TEACHER 0.3-0.6 cm in greatest dimension. ??Specimens are submitted en toto in cassette A1. Grossed by LINDA. B: ?? Received in formalin labeled with the patient's name, medical record number, and colon-right colon are seven pale fsj-[id number] irregular soft tissues, ranging from 0.2-0.5 cm in greatest dimension. ??Specimens are submitted en toto in cassette B1. ??Grossed by LINDA. C: ?? Received in formalin labeled with the patient's name, medical record number, and colon-left colon are six pale hbc-ofen-kdh irregular soft tissues, ranging from 0.2-0.6 cm [...] terminal ileum, endoscopic biopsy: 11:55 AM Small DRUMS TEACHER intestinal mucosa with no diagnostic abnormality. B. Colon, right, endoscopic biopsy: Colonic mucosa with no diagnostic abnormality. C. Colon, left, endoscopic biopsy: Colonic mucosa with no diagnostic abnormality. D. Colon, rectum, endoscopic biopsy: Colonic mucosa with no diagnostic abnormality. Specimen (Source) Anatomical Collection Method Collection Time Re ceived Time Location / / Volume Laterality Biopsy (Ileum) 09/13/2021 9:20 AM DRUMS TEACHER Biopsy (Colon) 09/13/2021 9:27 AM DRUMS TEACHER Biopsy (Colon) 09/13/2021 9:27 AM DRUMS TEACHER Biopsy (Colon) 09/13/2021 9:28 AM DRUMS TEACHER Narrative This result has an attachment that is no t available. Wolf [place], B.Ch., Ph.D. LAB SURG PATH KAYLIE HENSON Performing Organization Address City/State/ZIP Code Phon e Number [facility] - [address] [place], [place] [address] [facility] [place] [address] [facility] [address] Colonoscopy (09/13/2021 8:46 AM DRUMS TEACHER) Specimen (Source) Anatomical Collection Method Collection Time Re ceived Time Location / / Volume Laterality 09/13/2021 8:46 AM DRUMS TEACHER Impressions [facility] - 09/13/2021 9:39 AM DRUMS TEACHER Post-op Diagnoses: ? 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 Biopsied. No strictures seen. ? - Normal mucosa in the entire exa mined colon. Biopsied. Clip (MR ? conditional) was placed to contro l bleeding from a biopsy in the ? transverse colon. ? - The distal rectum and anal verg e are normal on retroflexion view. Narrative [facility] - 09/13/2021 9:39 AM DRUMS TEACHER Facundo 6 GI GI Patient Name: Lawson [...] done by the physicia n, nurse and packaging technician using the ? patient's name and date. Es timated blood loss was minimal. ? Normal mucosa was found in the en tire colon. Biopsies were taken with a ? cold forceps for histology. Verif ication of patient identification for ? the specimen was done by the phys ician, nurse and packaging technician using the ? patient's name and [...] preparation was evaluated using ? the BBPS ([place] Bowel Preparatio n Scale) with scores of: [...]
--- OUTSIDE RECORDS SUMMARY | 2022-06-21 10:55 | XMS_ITS | Encounter Summary ---
:1975 Author Organization [facility] Address [address] [place] [address] Care Team Providers Name Role Phone Unavailable Primary Care Provider Unavailable Reason for Visit Auth/Cert Specialty Diagnoses / Procedures Referred By Contact Refer red To Contact Diagnoses Small Bowel Stricture Personal History Small Bowel obstruction Procedures Z87.19 (ICD-10-CM) - Small Bowel Stricture Personal History Referral ID Status Reason Start Date Expiration Date Visits Requ ested Visits Authorized [id number] 1 1 Encounter Details Date Type Department Care Team Description 09/06/2021 - Hospital Encounter [facility] Sheeba Bates 09/08/2021 [facility], Stanislav Koenig, BRosalinda. [facility], [address] [place] [address] History ([place], [place] Dx) Third Floor [id number] [place] [address] [place], [place] (Work) [phone] Social History Tobacco Use [...] or relatives? How often do you attend mormon or More than 4 times per year 09/15/2021 temple services? Do you belong to any clubs or Yes 09/15/2021 organizations such as mormon groups, unions, fraternal or athletic groups, or [...] at Date Recorded Male 09/15/2021 9:14 AM MANUFACTURING ADVISOR documented as of this encounter Last Filed Vital Signs Vital Sign Reading Time Taken Comments Blood Pressure 120/80 09/08/2021 1:31 PM MANUFACTURING ADVISOR Pulse 81 09/08/2021 1:31 PM MANUFACTURING ADVISOR Temperature 36.5 ??C (97.7 ??F) 09/08/2021 1:31 PM MANUFACTURING ADVISOR Respiratory Rate 15 09/08/2021 1:31 PM MANUFACTURING ADVISOR Oxygen Saturation 96% 09/08/2021 1:31 PM MANUFACTURING ADVISOR Inhaled Oxygen Concentration - - Weight 120 kg (264 lb 8.8 oz) 09/06/2021 3:13 PM MANUFACTURING ADVISOR Height 185.4 cm (6' 1) 09/06/2021 3:13 PM MANUFACTURING ADVISOR Body Mass Index 34.9 09/06/2021 3:13 PM MANUFACTURING ADVISOR documented in this encounter Discharge Summaries Shannon Rushing M.B., B.Ch. - 09/08/2021 9:58 AM CST DISCHARGE SUMMARY BRIEF OVERVIEW Hospital: [facility] Discharge Provider: Sheeba Bates M.B. Primary Care Provider at Discharge: No primary care provider on file. Primary Care Provider Phone Number: None Primary Care Provider Fax Number: None Other Providers: None Primary Team: [facility] Gastroenterology A Admission Date: 09/06/2021 Discharge Date: [...] ??? Please follow-up with your PCP or market maker regarding the results of your cardiac CT which were obtained at [place]. OUTPATIENT FOLLOW UP Scheduled Appointments 09/10/2021 12:45 [...] The biopsies only showed nonspecific focal ileitis. [facility] saw him here in 2016, said no dx of IBD, seems steroid responsive but not appropriate for long-term immunosuppression w/o dx criteria and proposed colonoscopy and CT enterography here. He did the colonoscopy only, which was totally normal. He has had one upper endoscopy around 2013 that was essentially normal. No duodenal biopsies were done. He did undergo pill enteroscopy at [facility] which was unrevealing, date unclear. In early July, he had gradual onset of abdominal pain in the right upper quadrant which is typical for these episodes for him. He became nauseous and with decreased p.o. tolerance and presented to the [facility] where he was admitted. He was treated [...] reassuring and essentially all within normal limits. Plate Shear Operator film from initial CT showed significant [...] were provided to the patient and caregiver(s). FACTURING ADVISOR documented in this encounter Discharge Instructions Discharge InstructionsKahlil Crespo - 09/07/2021 7:53 AM CST You were discharged from the [facility] Gastroenterology A Service. Please identify this service name if you call with questions after hospitalization. FACTURING ADVISOR documented in this encounter Medications at Time [...] be entertained. He will follow up with FACTURING ADVISOR Anton Osborn, Bianca., R.Ph. - 09/07/2021 7:00 AM CST Pharmacist Progress Note Reason for admission: SBO PMH: DM2, fibromyalgia, anxiety, CAD OBJECTIVE Prophylaxis: lovenox Estimated Creatinine Clearance: 101.8 mL/min (by C-G formula based on SCr of 1.23 mg/dL). Home medications: Med history per [facility] - New: haldol, dilaudid, tylenol, melatonin, aspart [...] 2 mg IMq8h prn. QTc 456. Anton Fagan., [facility] FACTURING ADVISOR Herman Murphy Pharm.D., R.Ph. - 09/06/2021 3:48 [...] -- Take 100 mg by mouth daily. FACTURING ADVISOR documented in this encounter H&P Notes Sheeba Bates M.B., B.Chir. - 09/07/2021 10:23 AM CST I agree with the history, physical examination, evaluation documented by Dr. Neil dated August,. 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 [...] bowel, consideration for surgery should be entertained. FACTURING ADVISOR Raul Neil M.D. - 09/06/2021 11:46 PM CST RST Gastroenterology A Admission Note SUBJECTIVE CHIEF COMPLAINT Small Bowel Obstruction HISTORY OF PRESENT ILLNESS Mr. Lawson Whitley [...] The biopsies only showed nonspecific focal ileitis. [facility] saw him here in 2016, said no dx of IBD, seems steroid responsive but not appropriate for long-term immunosuppression w/o dx criteria and proposed colonoscopy and CT enterography here. He did thecolonoscopy only, which was totally normal. He has had one upper endoscopy around 2013 that was essentially normal. No duodenal biopsies were done. He did undergo pill enteroscopy at [facility] which was unrevealing, date unclear. In early July, he had gradual onset of abdominal pain in the right upper quadrant which is typical for these episodes for him. He became nauseous and with decreased p.o. tolerance and presented to the [facility] where he was admitted. He was treated [...] reassuring and essentially all within normal limits. Plate Shear Operator film from initial CT showed significant [...] / PLAN Mr. Whitley is hospitalized on [facility] Gastroenterology A for evaluation and management [...] small-bowel obstruction [ ] Obtain records from [facility] [ ] Consider Surg consult inpt vs [...] Surrogate Decision Maker: Spouse, Terra Disposition: Uncertain FACTURING ADVISOR documented in this encounter Nursing Notes Ana Avila RCiera. - 09/08/2021 1:41 PM CST PIV removed, VSS, AVS and education completed. Patient stated he had no further questions. Patient and had questions before discharge, service came to bedside to discuss. Patient confirmed he feltfine walking out with , no transportation needed. FACTURING ADVISOR Annie De La Paz RLouise - 09/08/2021 [...] stated that the dilaudid seemed to help. FACTURING ADVISOR Annie De La Paz R.N. - 09/07/2021 [...] shift. Overall, patient had a restful night. FACTURING ADVISOR documented in this encounter Miscellaneous Notes Hospital Course - Shannon Rushing M.B., B.. - 09/07/2021 10:52 PM MANUFACTURING ADVISOR Mr. Whitley is a 41-year-old man with [...] The biopsies only showed nonspecific focal ileitis. [facility] saw him here in 2016, said no dx of IBD, seems steroid responsive but not appropriate for long-term immunosuppression w/o dx criteria and proposed colonoscopy and CT enterography here. He did the colonoscopy only, which was totally normal. He has had one upper endoscopy around 2013 that was essentially normal. No duodenal biopsies were done. He did undergo pill enteroscopy at [facility] which was unrevealing, date unclear. In early July, he had gradual onset of abdominal pain in the right upper quadrant which is typical for these episodes for him. He became nauseous and with decreased p.o. tolerance and presented to the [facility] where he was admitted. He was treated [...] reassuring and essentially all within normal limits. Plate Shear Operator film from initial CT showed significant [...] 4 extremities Psych: Congruent mood and affect FACTURING ADVISOR documented in this encounter Plan of Treatment Not on filedocumented as of this encounter Procedures Procedure Name Priority Date/Time Associated Comments Diagnosis GLUCOSE POCT, B Routine 09/08/2021 1:27 Results f or PM MANUFACTURING ADVISOR this procedure are in the results section. GLUCOSE POCT, B Routine 09/08/2021 7:25 Results f or AM MANUFACTURING ADVISOR this procedure are in the results section. GLUCOSE POCT, B Routine 09/07/2021 8:41 Results f or PM MANUFACTURING ADVISOR this procedure are in the results section. GLUCOSE POCT, B Routine 09/07/2021 3:58 Results f or PM MANUFACTURING ADVISOR this procedure are in the results section. ECG Routine 09/07/2021 2:26 Results for PM MANUFACTURING ADVISOR this procedure are in the results section. GLUCOSE POCT, B Routine 09/07/2021 11:29 Results for AM MANUFACTURING ADVISOR this procedure are in the results section. GLUCOSE POCT, B Routine 09/07/2021 8:07 Results f or AM MANUFACTURING ADVISOR this procedure are in the results section. CBC WITH Routine 09/07/2021 6:27 Results for DIFFERENTIAL, B AM MANUFACTURING ADVISOR this procedu re are in the results section. LACTATE, B/P Routine 09/07/2021 6:27 Results for AM MANUFACTURING ADVISOR this procedure are in the results section. BASIC METABOLIC Routine 09/07/2021 6:27 Results f or PANEL, S/P AM MANUFACTURING ADVISOR this procedure are in the results section. GLUCOSE POCT, B Routine 09/07/2021 6:26 Results f or AM MANUFACTURING ADVISOR this procedure are in the results section. DX ABDOMEN PORTABLE RAD - Semiurgent 09/06/2021 9:05 R esults for ANTERIOR POSTERIOR 1 (Fast; most ED PM MANUFACTURING ADVISOR this procedure VIEW patients; some are in the inpatients) results section. GLUCOSE POCT, B Routine 09/06/2021 8:59 Results f or PM MANUFACTURING ADVISOR this procedure are in the results section. ECG Routine 09/06/2021 8:55 Results for PM MANUFACTURING ADVISOR this procedure are in the results section. DX ABDOMEN PORTABLE RAD - Routine 09/06/2021 7:15 Resu lts for ANTERIOR POSTERIOR 1 (most inpatients PM MANUFACTURING ADVISOR thi s procedure VIEW and all are in the outpatients) results section. CBC WITH STAT 09/06/2021 6:35 Results for DIFFERENTIAL, B PM MANUFACTURING ADVISOR this procedu re are in the results section. C-REACTIVE PROTEIN STAT 09/06/2021 6:35 Result s for (CRP), S/P PM MANUFACTURING ADVISOR this procedure are in the results section. LIPASE, S/P STAT 09/06/2021 6:35 Results for PM MANUFACTURING ADVISOR this procedure are in the results section. COMPREHENSIVE STAT 09/06/2021 6:35 Results for METABOLIC PANEL, S/P PM MANUFACTURING ADVISOR this pr ocedure are in the results section. SEDIMENTATION RATE, B Routine 09/06/2021 6:31 Res ults for PM MANUFACTURING ADVISOR this procedure are in the results section. GLUCOSE POCT, B Routine 09/06/2021 5:44 Results f or PM MANUFACTURING ADVISOR this procedure are in the results section. CREATININE WITH EGFR, Routine 09/06/2021 4:32 Res ults for S/P PM MANUFACTURING ADVISOR this procedure are in the results section. INTERPRETATION OF RAD - Routine 09/06/2021 4:23 Result s for OUTSIDE CT ABDOMEN (most inpatients PM MANUFACTURING ADVISOR this procedure AND OR PELVIS and all are in the outpatients) results section. INTERPRETATION OF RAD - Routine 09/06/2021 4:23 Result s for OUTSIDE CT CHEST (most inpatients PM MANUFACTURING ADVISOR this pr ocedure and all are in the outpatients) results section. documented in this encounter Results (ABNORMAL) Glucose, POCT (09/08/2021 1:27 PM MANUFACTURING ADVISOR) Analysis Performed At Patho logist Time Signature Glucose, POCT, 146 (H) 70 - 140 09/08/2021 [facility] B mg/dL 1:33 PM MANUFACTURING ADVISOR Site Capillary 09/08/2021 [facility] 1:33 PM MANUFACTURING ADVISOR Last Intake 3-4 hours 09/08/2021 [facility] 1:33 PM MANUFACTURING ADVISOR Specimen Anatomical Collection Method Collection Time Receive d Time (Source) Location / / Volume Laterality Blood 09/08/2021 1:27 PM 2 1:33 MANUFACTURING ADVISOR PM MANUFACTURING ADVISOR Unknown Provider LAB POCT ORDERABLES-MANUAL Performing Organization Address City/State/ZIP Code Phon e Number POC [facility] [address] [place] [address] [facility] [place] [address] [place] [facility] [address] (ABNORMAL) Glucose, POCT (09/08/2021 7:25 AM MANUFACTURING ADVISOR) Analysis Performed At Patho logist Time Signature Glucose, POCT, 157 (H) 70 - 140 09/08/2021 [facility] B mg/dL 7:47 AM MANUFACTURING ADVISOR Site Capillary 09/08/2021 [facility] 7:47 AM MANUFACTURING ADVISOR Last Intake > 4 hours 09/08/2021 [facility] 7:47 AM MANUFACTURING ADVISOR Specimen Anatomical Collection Method Collection Time Receive d Time (Source) Location / / Volume Laterality Blood 09/08/2021 7:25 AM 2 7:47 MANUFACTURING ADVISOR AM MANUFACTURING ADVISOR Unknown Provider LAB POCT ORDERABLES-MANUAL Performing Organization Address [facility] Phon e Number POC [facility] [address] [place] [address] [place] [address] [place] [facility] [address] [facility] Glucose, POCT (09/07/2021 8:41 PM MANUFACTURING ADVISOR) Analysis Performed At Patho logist Time Signature Glucose, POCT, 134 70 - 140 09/07/2021 [facility] B mg/dL 8:44 PM MANUFACTURING ADVISOR Last Intake 2-3 hours 09/07/2021 [facility] 8:44 PM MANUFACTURING ADVISOR Specimen Anatomical Collection Method Collection Time Receive d Time (Source) Location / / Volume Laterality Blood 09/07/2021 8:41 PM 2 8:44 MANUFACTURING ADVISOR PM MANUFACTURING ADVISOR Unknown Provider LAB POCT ORDERABLES-MANUAL Performing Organization Address [facility] Phon e Number POC [facility] [address] [place] [address] [place] [address] [place] [facility] [address] [facility] Glucose, POCT (09/07/2021 3:58 PM MANUFACTURING ADVISOR) Analysis Performed At Patho logist Time Signature Glucose, POCT, 120 70 - 140 09/07/2021 [facility] B mg/dL 4:02 PM MANUFACTURING ADVISOR Last Intake 2-3 hours 09/07/2021 [facility] 4:02 PM MANUFACTURING ADVISOR Specimen Anatomical Collection Method Collection Time Receive d Time (Source) Location / / Volume Laterality Blood 09/07/2021 3:58 PM 2 4:02 MANUFACTURING ADVISOR PM MANUFACTURING ADVISOR Unknown Provider LAB POCT ORDERABLES-MANUAL Performing Organization Address City/[facility] Phon e Number POC [facility] [address] [place] [address] [place] [address] [place] [facility] 200 [facility] ECG 12 Lead (09/07/2021 2:26 PM MANUFACTURING ADVISOR) P athologist Signature Ventricular Rate 94 BPM MUSE ECG/Min VT Interval 166 ms MUSE QRSD Interval 116 ms MUSE QT Interval 358 ms MUSE QTC Interval 447 ms MUSE P Donna 31 degrees MUSE R Donna 0 degrees MUSE T Wave Donna 36 degrees MUSE Specimen Anatomical Collection Method Collection Time Receive d Time (Source) Location / / Volume Laterality 09/07/2021 2:26 PM 2 2:33 MANUFACTURING ADVISOR PM MANUFACTURING ADVISOR Impressions MUSE - 09/07/2021 2:33 PM MANUFACTURING ADVISOR Normal sinus rhythm Normal ECG When compared [...] [place], B.Ch. ECG ORDERABLES Performing Organization Address City/[facility]/ZIP Code Phon e Number MUSE MUSE NA (ABNORMAL) Glucose, POCT (09/07/2021 11:29 AM MANUFACTURING ADVISOR) P athologist Signature Glucose, POCT, 153 (H) 70 - 140 09/07/2021 [facility] B mg/dL 11:36 AM MANUFACTURING ADVISOR Specimen Anatomical Collection Method Collection Time Receive d Time (Source) Location / / Volume Laterality Blood 09/07/2021 11:29 09/07/2021 AM MANUFACTURING ADVISOR 11:36 AM MANUFACTURING ADVISOR Unknown Provider LAB POCT ORDERABLES-MANUAL Performing Organization Address City/[facility]/ZIP [facility] Phon e Number POC [facility] [address] [place] [address] [place], [place] [id number] [place] [address] (ABNORMAL) Glucose, POCT (09/07/2021 8:07 AM MANUFACTURING ADVISOR) P athologist Signature Glucose, POCT, 164 (H) 70 - 140 09/07/2021 [facility] B mg/dL 8:32 AM MANUFACTURING ADVISOR Specimen Anatomical Collection Method Collection Time Receive d Time (Source) Location / / Volume Laterality Blood 09/07/2021 8:07 AM 8:32 MANUFACTURING ADVISOR AM MANUFACTURING ADVISOR Unknown Provider LAB POCT ORDERABLES-MANUAL Performing Organization Address City/[facility]/ZIP [facility] Phon e Number POC [facility] [address] [place] [address] [place] [address] [facility] [address] Lactate (09/07/2021 6:27 AM MANUFACTURING ADVISOR) P athologist Signature Lactate, P 1.1 0.5 - 2.2 09/07/2021 DTL mmol/L 7:35 AM MANUFACTURING ADVISOR Specimen Anatomical Collection Method Collection Time Receive d Time (Source) Location / / Volume Laterality Blood (Blood, 09/07/2021 6:27 AM 09/07/19 7:19 Venous) MANUFACTURING ADVISOR AM MANUFACTURING ADVISOR Raul Neil M.D. LAB BLOOD NON ADD-ON Performing Organization Address City/State/ZIP Code Phon e Number [facility] [address] [place], [place] [address] [facility] [place] [address] Laboratories-[facility] [address] (ABNORMAL) Basic Metabolic Panel (09/07/2021 6:27 AM MANUFACTURING ADVISOR) athologist Signature Potassium, S 4.3 3.6 - 5.2 09/07/2021 DTL mmol/L 7:39 AM MANUFACTURING ADVISOR Sodium, S 139 135 - 145 09/07/2021 DTL mmol/L 7:39 AM MANUFACTURING ADVISOR Chloride, S 105 98 - 107 09/07/2021 DTL mmol/L 7:39 AM MANUFACTURING ADVISOR Bicarbonate, S 23 22 - 29 09/07/2021 DTL mmol/L 7:39 AM MANUFACTURING ADVISOR Anion Gap 11 7 - 15 09/07/2021 DTL 7:39 AM MANUFACTURING ADVISOR BUN (Blood Urea 15 8 - 24 09/07/2021 DTL Nitrogen), S mg/dL 7:39 AM MANUFACTURING ADVISOR Creatinine 0.94 0.74 - 09/07/2021 DTL 1.35 mg/dL 7:39 AM MANUFACTURING ADVISOR eGFR-Non >90 >=60 09/07/2021 DTL Black/ mL/min/BSA 7:39 AM MANUFACTURING ADVISOR Ug[place]an Comment: ----ADDITIONAL INFORMATION---- Estimated GFR calculated using the 2009 CKD_EPI creatinine equation. eGFR-Black/ >90 >=60 mL/min/BSA 2021 7:39 AM MANUFACTURING ADVISOR DTL Comment: ----ADDITIONAL INFORMATION---- Estimated GFR calculated using the 2009 CKD_EPI creatinine equation. Calcium, Total, S 8.5 (L) 8.6 - 10.0 mg/dL 09/07/2021 7:39 AM MANUFACTURING ADVISOR DTL Glucose, S 150 (H) 70 - 140 mg/dL 09/07/2021 7:39 AM MANUFACTURING ADVISOR D TL Specimen Anatomical Collection Method Collection Time Receive d Time (Source) Location / / Volume Laterality Blood (Blood, 09/07/2021 6:27 AM 09/07/19 7:20 Venous) MANUFACTURING ADVISOR AM MANUFACTURING ADVISOR Raul Neil M.D. LAB BLOOD ADD-ON Performing Organization Address City/State/ZIP Code Phon e Number [facility] - [address] [place], [place] [address] [facility] [place] [place] [address] [facility] [address] [facility] (ABNORMAL) CBC with Differential, Blood (09/07/2021 6:27 AM MANUFACTURING ADVISOR) [facility] gist Method Time Signature Hemoglobin 13.9 13.2 - 09/07/2021 DTL 16.6 g/dL 7:08 AM MANUFACTURING ADVISOR Hematocrit 43.2 38.3 - 09/07/2021 DTL 48.6 % 7:08 AM MANUFACTURING ADVISOR Erythrocytes 4.65 4.35 - 09/07/2021 DTL 5.65 7:08 AM MANUFACTURING ADVISOR x10(12)/L MCV 92.9 78.2 - 09/07/2021 DTL 97.9 fL 7:08 AM MANUFACTURING ADVISOR RBC Distrib Width 14.7 (H) 11.8 - 09/07/2021 DTL 14.5 % 7:08 AM MANUFACTURING ADVISOR Platelet Count 284 135 - 317 09/07/2021 DTL x10(9)/L 7:08 AM MANUFACTURING ADVISOR Leukocytes 5.1 3.4 - 9.6 09/07/2021 DTL x10(9)/L 7:08 AM MANUFACTURING ADVISOR Neutrophils 3.14 1.56 - 09/07/2021 DTL 6.45 7:08 AM MANUFACTURING ADVISOR x10(9)/L Lymphocytes 1.33 0.95 - 09/07/2021 DTL 3.07 7:08 AM MANUFACTURING ADVISOR x10(9)/L Monocytes 0.46 0.26 - 09/07/2021 DTL 0.81 7:08 AM MANUFACTURING ADVISOR x10(9)/L Eosinophils 0.13 0.03 - 09/07/2021 DTL 0.48 7:08 AM MANUFACTURING ADVISOR x10(9)/L Basophils <0.03 0.01 - 09/07/2021 DTL 0.08 7:08 AM MANUFACTURING ADVISOR x10(9)/L Specimen Anatomical Collection Method Collection Time Receive d Time (Source) Location / / Volume Laterality Blood (Blood, 09/07/2021 6:27 AM 09/07/19 7:00 Venous) MANUFACTURING ADVISOR AM MANUFACTURING ADVISOR Raul Neil M.D. LAB BLOOD ADD-ON Performing Organization Address City/State/ZIP Code Phon e Number [facility] - [address] [place], [place] [address] [facility] [place] [place] [address] [facility] 200 [facility] (ABNORMAL) Glucose, POCT (09/07/2021 6:26 AM MANUFACTURING ADVISOR) Analysis Performed At Patho logist Time Signature Glucose, POCT, 148 (H) 70 - 140 09/07/2021 [facility] B mg/dL 6:28 AM MANUFACTURING ADVISOR Site Capillary 09/07/2021 [facility] 6:28 AM MANUFACTURING ADVISOR Last Intake NPO 09/07/2021 P[facility] 6:28 AM MANUFACTURING ADVISOR Specimen Anatomical Collection Method Collection Time Receive d Time (Source) Location / / Volume Laterality Blood 09/07/2021 6:26 AM 6:28 MANUFACTURING ADVISOR AM MANUFACTURING ADVISOR Unknown Provider LAB POCT ORDERABLES-MANUAL Performing Organization Address [facility] Phon e Number POC [facility] [address] [place] [address] [place] [address] [place] [facility] [address] [facility] DX Abdomen Portable Anterior Posterior 1 View (09/06/2021 9:05 PM MANUFACTURING ADVISOR) Anatomical Region Laterality Modality Abdomen, Abdominal RST LOS, Abdominal ARZ LOS, N/A Digital Radiography Abdominal FLA LOS Specimen (Source) Anatomical Collection Method Collection Time Re ceived Time Location / / Volume Laterality 09/06/2021 9:11 PM MANUFACTURING ADVISOR Impressions 09/07/2021 8:01 AM MANUFACTURING ADVISOR Enteric tube with tip and sidehole in the stomach. Nonobstructive bowel gas pattern. Residual contrast within the urinary alejandro dder. Narrative 09/07/2021 8:01 AM MANUFACTURING ADVISOR EXAM: ??DX ABDOMEN PORTABLE ANTERIOR POSTERIOR 1 VIEW Procedure Note Braulio Gonzalez M.B.B.S., M.D. - EXAM: DX ABDOMEN PORTABLE ANTERIOR POSTE RIOR 1 VIEW IMPRESSION: Enteric tube with tip and sidehole in th e stomach. Nonobstructive bowel gas pattern. Residual contrast within the urinary alejandro dder. Raul Neil M.D. IMG DIAGNOSTIC IMAGING PROCE DURES (ABNORMAL) Glucose, POCT (09/06/2021 8:59 PM MANUFACTURING ADVISOR) Analysis Performed At Patho logist Time Signature Glucose, POCT, 146 (H) 70 - 140 09/06/2021 [facility] B mg/dL 9:07 PM MANUFACTURING ADVISOR Site Capillary 09/06/2021 [facility] 9:07 PM MANUFACTURING ADVISOR Last Intake > 4 hours 09/06/2021 [facility] 9:07 PM MANUFACTURING ADVISOR Specimen Anatomical Collection Method Collection Time Receive d Time (Source) Location / / Volume Laterality Blood 09/06/2021 8:59 PM 2 9:07 MANUFACTURING ADVISOR PM MANUFACTURING ADVISOR Unknown Provider LAB POCT ORDERABLES-MANUAL Performing Organization Address City/State/ZIP Code Phon e Number POC [facility] [address] [place] [address] [place] [address] [place] [facility] 200 [facility] ECG 12 Lead (09/06/2021 8:55 PM MANUFACTURING ADVISOR) P athologist Signature Ventricular Rate 118 BPM MUSE ECG/Min VT Interval 170 ms MUSE QRSD Interval 110 ms MUSE QT Interval 326 ms MUSE QTC Interval 456 ms MUSE P Donna 36 degrees MUSE R Donna 21 degrees MUSE T Wave Donna 41 degrees MUSE Specimen Anatomical Collection Method Collection Time Receive d Time (Source) Location / / Volume Laterality 09/06/2021 8:55 PM 2 9:19 MANUFACTURING ADVISOR PM MANUFACTURING ADVISOR Impressions MUSE - 09/06/2021 9:19 PM MANUFACTURING ADVISOR Sinus tachycardia Low anterior forces Nonspecific T [...] Anterior Posterior 1 View (09/06/2021 7:15 PM MANUFACTURING ADVISOR) Anatomical Region Laterality Modality Abdomen, Abdominal RST LOS, Abdominal ARZ LOS, N/A Digital Radiography Abdominal FLA LOS Specimen (Source) Anatomical Collection Method Collection Time Re ceived Time Location / / Volume Laterality 09/06/2021 7:16 PM MANUFACTURING ADVISOR Impressions 09/06/2021 7:17 PM MANUFACTURING ADVISOR NG tube tip in the stomach with side-port near the gastroesophageal junction. Recommend advancing for more optimal positioning p rior to use. Narrative 09/06/2021 7:17 PM MANUFACTURING ADVISOR EXAM: ??DX ABDOMEN PORTABLE ANTERIOR POSTERIOR 1 [...] SHAYNE CRP (C-Reactive Protein) (09/06/2021 6:35 PM MANUFACTURING ADVISOR) athologist Signature C-Reactive 6.3 <=8.0 mg/L 09/06/2021 DTL Protein (CRP), 7:38 PM MANUFACTURING ADVISOR S Specimen Anatomical Collection Method Collection Time Receive d Time (Source) Location / / Volume Laterality Blood (Blood, 09/06/2021 6:35 PM 09/06/19 22 7:21 Venous) MANUFACTURING ADVISOR PM MANUFACTURING ADVISOR Raul Neil M.D. LAB BLOOD ADD-ON Performing Organization Address City/State/ZIP Code Phon e Number [facility] - [address] [place], [place] [address] [facility] [place] [address] [facility] [address] Lipase (09/06/2021 6:35 PM MANUFACTURING ADVISOR) athologist Signature Lipase, S 21 13 - 60 U/L 09/06/2021 7:38 DTL PM MANUFACTURING ADVISOR Specimen Anatomical Collection Method Collection Time Receive d Time (Source) Location / / Volume Laterality Blood (Blood, 09/06/2021 6:35 PM 09/06/19 7:21 Venous) MANUFACTURING ADVISOR PM MANUFACTURING ADVISOR Raul Neil M.D. LAB BLOOD ADD-ON Performing Organization Address City/State/ZIP Code Phon e Number [facility] - [address] [place], [place] [address] [facility] [place] [address] [facility] [address] (ABNORMAL) Comprehensive Metabolic Panel (09/06/2021 6:35 PM MANUFACTURING ADVISOR) athologist Signature Potassium, S 5.0 3.6 - 5.2 09/06/2021 DTL mmol/L 7:39 PM MANUFACTURING ADVISOR Sodium, S 138 135 - 145 09/06/2021 DTL mmol/L 7:39 PM MANUFACTURING ADVISOR Chloride, S 104 98 - 107 09/06/2021 DTL mmol/L 7:39 PM MANUFACTURING ADVISOR Bicarbonate, S 23 22 - 29 09/06/2021 DTL mmol/L 7:39 PM MANUFACTURING ADVISOR Anion Gap 11 7 - 15 09/06/2021 DTL 7:39 PM MANUFACTURING ADVISOR BUN (Blood Urea 19 8 - 24 09/06/2021 DTL Nitrogen), S mg/dL 7:39 PM MANUFACTURING ADVISOR Creatinine 1.23 0.74 - 09/06/2021 DTL 1.35 mg/dL 7:39 PM MANUFACTURING ADVISOR eGFR-Non 70 >=60 09/06/2021 DTL Black/ mL/min/BSA 7:39 PM MANUFACTURING ADVISOR Ug[place] Comment: ----ADDITIONAL INFORMATION---- Estimated GFR calculated using the 2009 CKD_EPI creatinine equation. eGFR-Black/ 81 >=60 mL/min/BSA 2021 7:39 PM MANUFACTURING ADVISOR DTL Comment: ----ADDITIONAL INFORMATION---- Estimated GFR calculated using the 2009 CKD_EPI creatinine equation. Calcium, Total, S 9.1 8.6 - 10.0 mg/dL 09/06/2021 7:39 PM MANUFACTURING ADVISOR DTL Glucose, S 153 (H) 70 - 140 mg/dL 09/06/2021 7:39 PM MANUFACTURING ADVISOR D TL Protein, Total, S 7.2 6.3 - 7.9 g/dL 09/06/2021 7:39 P M MANUFACTURING ADVISOR DTL Albumin, S 4.8 3.5 - 5.0 g/dL 09/06/2021 7:39 PM MANUFACTURING ADVISOR D TL Aspartate Aminotransferase 17 8 - 48 U/L 09/06/2021 7 :39 PM MANUFACTURING ADVISOR DTL (AST), S Alkaline Phosphatase, S 56 40 - 129 U/L 09/06/2021 7: 39 PM MANUFACTURING ADVISOR DTL Alanine Aminotransferase 25 7 - 55 U/L 09/06/2021 7:3 9 PM MANUFACTURING ADVISOR DTL (ALT), S Bilirubin, Total, S 0.4 <=1.2 mg/dL 09/06/2021 7:39 PM MANUFACTURING ADVISOR DTL Specimen Anatomical Collection Method Collection Time Receive d Time (Source) Location / / Volume Laterality Blood (Blood, 09/06/2021 6:35 PM 09/06/19 22 7:21 Venous) MANUFACTURING ADVISOR PM MANUFACTURING ADVISOR Raul Neil M.D. LAB BLOOD ADD-ON Performing Organization Address City/State/ZIP Code Phon e Number [facility] - [address] [place], [place] [address] [facility] [place] [address] [facility] [address] [facility] (ABNORMAL) CBC with Differential, Blood (09/06/2021 6:35 PM MANUFACTURING ADVISOR) [facility] Method Time Signature Hemoglobin 15.1 13.2 - 09/06/2021 STMA 16.6 g/dL 6:47 PM MANUFACTURING ADVISOR Hematocrit 46.6 38.3 - 09/06/2021 STMA 48.6 % 6:47 PM MANUFACTURING ADVISOR Erythrocytes 4.94 4.35 - 09/06/2021 STMA 5.65 6:47 PM MANUFACTURING ADVISOR x10(12)/L MCV 94.3 78.2 - 09/06/2021 STMA 97.9 fL 6:47 PM MANUFACTURING ADVISOR RBC Distrib Width 14.8 (H) 11.8 - 09/06/2021 STMA 14.5 % 6:47 PM MANUFACTURING ADVISOR Platelet Count 335 (H) 135 - 317 09/06/2021 STMA x10(9)/L 6:47 PM MANUFACTURING ADVISOR Leukocytes 6.1 3.4 - 9.6 09/06/2021 STMA x10(9)/L 6:47 PM MANUFACTURING ADVISOR Neutrophils 3.93 1.56 - 09/06/2021 STMA 6.45 6:47 PM MANUFACTURING ADVISOR x10(9)/L Lymphocytes 1.42 0.95 - 09/06/2021 STMA 3.07 6:47 PM MANUFACTURING ADVISOR x10(9)/L Monocytes 0.68 0.26 - 09/06/2021 STMA 0.81 6:47 PM MANUFACTURING ADVISOR x10(9)/L Eosinophils 0.10 0.03 - 09/06/2021 STMA 0.48 6:47 PM MANUFACTURING ADVISOR x10(9)/L Basophils <0.03 0.01 - 09/06/2021 STMA 0.08 6:47 PM MANUFACTURING ADVISOR x10(9)/L Specimen Anatomical Collection Method Collection Time Receive d Time (Source) Location / / Volume Laterality Blood (Blood, 09/06/2021 6:35 PM 09/06/19 22 6:45 Venous) MANUFACTURING ADVISOR PM MANUFACTURING ADVISOR Raul Neil M.D. LAB BLOOD ADD-ON Performing Organization Address City/State/[facility] Phon e Number [facility] - [address] STMA [place] [address] [address] [facility] Sedimentation Rate (09/06/2021 6:31 PM MANUFACTURING ADVISOR) Analysis Performed At Patho logist Time Signature Sedimentation 12 2 - 12 09/06/2021 DTL Rate, B mm/h 7:41 PM MANUFACTURING ADVISOR Specimen Anatomical Collection Method Collection Time Receive d Time (Source) Location / / Volume Laterality Blood (Blood, 09/06/2021 6:31 PM 09/06/19 22 7:02 Venous) MANUFACTURING ADVISOR PM MANUFACTURING ADVISOR Raul Neil M.D. LAB BLOOD ADD-ON Performing Organization Address City/[facility]/ZIP [facility] [place] Number [facility] - [address] DTL [place] [address] [address] [facility] (ABNORMAL) Glucose, POCT (09/06/2021 5:44 PM MANUFACTURING ADVISOR) P athologist Signature Glucose, POCT, 181 (H) 70 - 140 09/06/2021 PCLX B mg/dL 5:48 PM MANUFACTURING ADVISOR Specimen Anatomical Collection Method Collection Time Receive d Time (Source) Location / / Volume Laterality Blood 09/06/2021 5:44 PM 5:49 MANUFACTURING ADVISOR PM MANUFACTURING ADVISOR Unknown Provider LAB POCT ORDERABLES-MANUAL Performing Organization Address City/[facility]/ZIP Code Phon e Number POC [facility] [address] [place] [address] PCLX [facility] [place] [address] [place] [facility] [address] [facility] Creatinine with Estimated GFR (09/06/2021 4:32 PM MANUFACTURING ADVISOR) athologist Signature Creatinine 1.27 0.74 - 09/06/2021 DTL 1.35 mg/dL 5:18 PM MANUFACTURING ADVISOR eGFR-Non 67 >=60 09/06/2021 DTL Black/ mL/min/BSA 5:18 PM MANUFACTURING ADVISOR [place] Comment: ----ADDITIONAL INFORMATION---- Estimated GFR calculated using the 2009 CKD_EPI creatinine equation. eGFR-Black/ 78 >=60 mL/min/BSA 2021 5:18 PM MANUFACTURING ADVISOR DTL Comment: ----ADDITIONAL INFORMATION---- Estimated GFR calculated using the 2009 CKD_EPI creatinine equation. Specimen Anatomical Collection Method Collection Time Receive d Time (Source) Location / / Volume Laterality Blood (Blood, 09/06/2021 4:32 PM 09/06/19 5:02 Venous) MANUFACTURING ADVISOR PM MANUFACTURING ADVISOR Raul Neil M.D. LAB BLOOD ADD-ON Performing Organization Address City/State/[facility] Code Phon e Number [facility] - [address] [place], [place] [address] [facility] [place] [address] [facility] [address] [facility] Interpretation of Outside CT Abdomen and or Pelvis (09/06/2021 4:23 PM MANUFACTURING ADVISOR) Anatomical Region Laterality Modality Abdomen, Pelvis, Abdominal RST LOS, Abdominal ARZ LOS, N/A Computed Tomography Abdominal FLA LOS, Other Specimen (Source) Anatomical Collection Method Collection Time Re ceived Time Location / / Volume Laterality 09/06/2021 6:03 PM MANUFACTURING ADVISOR Impressions 09/06/2021 6:39 PM MANUFACTURING ADVISOR 1. Findings compatible with Crohn's disease. At least low-grade mechanical small bowel obstruction related to narrowed/strictured small bow el disease. 2. Portal venous gas in the liver withou t definite source although the stomach is suggested given additional gas present in portal vessels about the stomach. Narrative 09/06/2021 6:39 PM MANUFACTURING ADVISOR EXAM: ??INTERPRETATION OF OUTSIDE CT ABDOMEN AND [...] of Outside CT Chest (09/06/2021 4:23 PM MANUFACTURING ADVISOR) Anatomical Region Laterality Modality Chest, Thoracic RST LOS, Thoracic ARZ LOS, Thoracic N/A Computed Tomography FLA LOS, Other, Body Specimen (Source) Anatomical Collection Method Collection Time Re ceived Time Location / / Volume Laterality 09/06/2021 6:03 PM MANUFACTURING ADVISOR Impressions 09/06/2021 6:39 PM MANUFACTURING ADVISOR 1. Findings compatible with Crohn's disease. At least low-grade mechanical small bowel obstruction related to narrowed/strictured small bow el disease. 2. Portal venous gas in the liver withou t definite source although the stomach is suggested given additional gas present in portal vessels about the stomach. Narrative 09/06/2021 6:39 PM MANUFACTURING ADVISOR EXAM: ??INTERPRETATION OF OUTSIDE CT ABDOMEN AND [...] in portal vessels about the stomach. Raul Neil M.D. IMSherlyn CT PROCEDURES documented [...] tablet 81 mg Given 09/08/2021 8:09 AM MANUFACTURING ADVISOR 81 mg 81 mg, oral, Daily, First dose (after last modification) on 09/07/21 at 1200 Given 09/07/2021 12:12 PM MANUFACTURING ADVISOR 81 mg atorvastatin tablet 20 mg (LIPITOR) Given 09/07/2021 8:50 PM MANUFACTURING ADVISOR 20 mg 20 mg, oral, Daily at bedtime, First dose on Mon09/06/21 at 2100 buPROPion tablet 100 mg (WELLBUTRIN) Given 09/08/2021 8:09 AM MANUFACTURING ADVISOR 100 mg 100 mg, oral, Daily, First dose (after last modification) on Mon09/07/21 at 1200 Given 09/07/2021 12:12 PM MANUFACTURING ADVISOR 100 mg enoxaparin injection 40 mg Given 09/06/2021 4:55 PM MANUFACTURING ADVISOR 40 mg Left Upper Arm (LOVENOX) (Back) 40 mg, subcutaneous, Every 24 hours scheduled, First dose on Mon09/06/21 at 1630 gemfibroziL tablet 600 mg (LOPID) Given 09/08/2021 5:57 AM MANUFACTURING ADVISOR 600 mg 600 mg, oral, 2 times daily before breakfast and dinner, First dose on Mon09/07/21 at 0700 Given 09/07/2021 3:56 PM MANUFACTURING ADVISOR 600 mg haloperidol lactate injection 2 mg Given 09/06/2021 8:41 PM MANUFACTURING ADVISOR 2 mg Left Deltoid (HALDOL) 2 mg, intramuscular, Every 8 hours PRN, agitation, Starting on Mon09/06/21 at 2019 HYDROmorphone (PF) injection 0.2 mg Given 09/08/2021 11:28 AM CS T 0.2 mg (DILAUDID) 0.2 mg, intravenous, Every 4 hours PRN, moderate pain or score 4-6 of 10, Starting on Mon09/06/21 at 1859 Given 09/08/2021 7:20 AM MANUFACTURING ADVISOR 0.2 mg Given 09/07/2021 11:23 PM MANUFACTURING ADVISOR 0.2 mg insulin aspart U-100 Given 09/08/2021 1:28 PM MANUFACTURING ADVISOR 2 Units Right Upper Arm injection 0-13 [...] writing Insulin orders Given 09/08/2021 7:26 AM MANUFACTURING ADVISOR 2 Units Right Lower Abdomen Given 09/07/2021 11:32 AM MANUFACTURING ADVISOR 2 Units Left Upper Arm (Back) lactated Ringer's bolus 500 mL New Bag 09/06/2021 4:53 PM MANUFACTURING ADVISOR 500 mL 500 mL/hr 500 mL, intravenous, at 500 mL/hr, Administer over 1 Hours, Once, On Mon09/06/21 at 1615, For 1 dose lactated Ringer's bolus 500 mL New Bag 09/06/2021 11:37 PM MANUFACTURING ADVISOR 500 mL 500 mL/hr 500 mL, intravenous, at 500 mL/hr, Administer over 1 Hours, Once, On Mon09/06/21 at 2330, For 1 dose LORazepam injection 1 mg (ATIVAN) Given 09/06/2021 4:52 PM MANUFACTURING ADVISOR 1 mg Right Deltoid 1 mg, intramuscular, Once as needed, for NG tube placement, Starting on Mon09/06/21 at 1619, For 1 dose, For intravenous use, dilute with equal volume of 0.9% NS LORazepam injection 1 mg (ATIVAN) Given 09/06/2021 8:34 PM MANUFACTURING ADVISOR 1 mg 1 mg, intravenous, Every 4 hours PRN, anxiety, Starting on Mon09/06/21 at 2019, For intravenous use, dilute with equal volume of 0.9% NS LORazepam tablet 0.5 mg (ATIVAN) Given 09/07/2021 8:53 PM MANUFACTURING ADVISOR 0.5 mg 0.5 mg, oral, Bedtime PRN, sleep, Starting on Mon09/06/21 at 1611 melatonin tablet 3 mg Given 09/07/2021 11:46 PM MANUFACTURING ADVISOR 3 mg 3 mg, oral, Bedtime PRN, sleep, Starting on Mon09/06/21 at 1615 metoprolol succinate 24 hr tablet 25 mg Given 09/08/2021 8:08 AM MANUFACTURING ADVISOR 25 mg (TOPROL-XL) 25 mg, oral, 2 times daily, First dose (after last modification) on Mon09/07/21 at 2100, Do NOT crush or chew. Tablet may be split on score if needed. Given 09/07/2021 8:50 PM MANUFACTURING ADVISOR 25 mg ondansetron (PF) injection 4 mg (ZOFRAN) 4 mg, intravenous, Every 6 hours PRN, na usea, vomiting, Starting on Mon09/07/21 at 1826 ondansetron ODT disintegrating tablet 4 mg Given 09/08/2021 11:3 5 AM MANUFACTURING ADVISOR 4 mg (ZOFRAN-ODT) 4 mg, oral, Every 6 hours PRN, nausea, vomiting, Starting on Mon09/07/21 at 1826, When splitting ODT at bedside, handle with gloves and a pill splitter to prevent moisture contact. Given 09/07/2021 6:32 PM MANUFACTURING ADVISOR [address] tablet 40 mg (PROTONIX) Given 09/08/2021 5:57 AM MANUFACTURING ADVISOR 40 mg 40 mg, oral, Daily before breakfast, First dose on Mon09/07/21 at 0700, pantoprazole 40 mg oral daily was interchanged for omeprazole 20 or 40 mg oral daily Swallow whole. Do NOT crush, chew, or split tablet. pregabalin capsule 100 mg (LYRICA) Given 09/08/2021 8:09 AM MANUFACTURING ADVISOR 100 mg 100 mg, oral, 2 times daily, First dose (after last modification) on Mon09/07/21 at 1200 Given 09/07/2021 8:50 PM MANUFACTURING ADVISOR 100 mg Given 09/07/2021 12:12 PM MANUFACTURING ADVISOR 100 mg documented in this encounter Active and Recently Administered Medications Times are shown in MANUFACTURING ADVISOR. Scheduled Medication Order 09/06/2021 09/07/2021 09/08/2021 aspirin chewable tablet 81 mg 1212 (Give n - Provider: Masha Ackerman RDerikNDerik) 0809 (Given - Provider: Ana Avila RLouise) 81 mg, oral, Daily, First dose (after last modificatio n) on Mon09/07/21 at 1200 atorvastatin tablet 20 mg (LIPITOR) 1902 (Held by [facility] ider - Provider: Raul Neil M.D. - Comment: obstructed)2100 (Not Given - Provider: Annie De La Paz RDerikNDerik - Reason: See Provider Order) 1231 (Unheld by provider - Provider: Stanislav Davison, B.Ch.)0 (Given - Provider: Maria Teresa Bustos RLouise) 20 mg, oral, Daily at bedtime, First [...] (Given - Provider: Annie De La Paz RDerikNDerik - Comment: per pt. requested) 600 mg, oral, 2 times daily before break fast and dinner, First dose on Mon09/07/21 at 0700 insulin aspart U-100 injection 0-13 Units (NovoLOG Fle xPen) 1745 (Given - Provider: Maria Teresa Butsos R.N. - Comment: BG 181) 0819 (Given [...] lactated Ringer's bolus 500 mL (COMPLETED) 165 ([facility] - Provider: Maria Teresa Bustos R.N.) 500 mL, intravenous, at 500 mL/hr, Admin ister over 1 Hours, Once, On Mon09/06/21 at 1615, For 1 dose lactated Ringer's bolus 500 mL (COMPLETED) 2336 ([facility] - Provider: Sol DillardNDerik) 500 mL, intravenous, at 500 mL/hr, Admin [...] needed. pantoprazole DR tablet 40 mg (PROTONIX) 1901 (Held by provider - Provider: Raul Neil [...] (LYRICA) 1212 (Given - Provider: Masha Ackerman R.N.)2050 (Given - Provider: Maria Teresa Bustos R.N.) 0809 (Given - Provider: Ana Avila R.N.) 100 mg, oral, 2 times daily, First dose (after last modification) on Mon09/07/21 at 1200 PRN Medication Order 09/06/2021 09/07/2021 09/08/2021 acetaminophen tablet 650 mg (TYLENOL) 194 (Not Given - Provider: Maria Teresa Bustos R.N. - Reason: See Provider Order) 650 mg, oral, Every 4 hours PRN, moderat e pain or score 4-6 of 10, Starting on Mon09/06/21 at 1613 haloperidol lactate injection 2 mg (HALDOL) (CANCELED) 2040 (Given - Provider: Sol FlowersNDerik) 2 mg, intramuscular, Every 8 hours PRN, agitation, Starting on Mon09/06/21 at 2019 HYDROmorphone (PF) injection 0.2 mg (DILAUDID) 1939 (G iven - Provider: Maria Teresa Bustos R.N.) 0820 (Given - Provider: Masha salinas R.N.)1356 (Given - Provider: Masha Ackerman R.N.)1816 (Given - Provider: Maria Teresa Bustos R.N.)2323 (Given - Provider: Annie De La Paz RDerikNDerik) 0720 (Given - Provider: Ana Avila R.N.)1128 (Given - Provider: Ana Avila RDerikNDerik) 0.2 mg, intravenous, Every 4 hours PRN, moderate pain or score 4-6 of 10, Starting on Mon09/06/21 at 1859 LORazepam injection 1 mg (ATIVAN) (COMPLETED) 1652 (Gi brandi - Provider: Maria Teresa Bustos RDerikNDerik) 1 mg, intramuscular, Once as needed, for [...] 0.9% NS LORazepam tablet 0.5 mg (ATIVAN) 194 (Not Given - Pro vider: Maria Teresa [...] Bustos R.N. - Reason: See Provider Order) 2346 (Given - Provider: Annie De La Paz R.N.) 3 mg, oral, Bedtime PRN, sleep, Starting on Mon09/06/21 at 1615 ondansetron (PF) injection 4 mg (ZOFRAN)(Linked Group 1) 1831 (See Alternative - Provider: Masha Ackerman R.N.) 1135 (See Alternative - Provider: Bettye Avila RDerikNDerik) 4 mg, intravenous, Every 6 hours PRN, na usea, vomiting, Starting on Mon09/07/21 at 1826 ondansetron ODT disintegrating tablet 4 mg (ZOFRAN-ODT)(Link ed Group 1) 1831 (Given - Provider: Masha Ackerman R.N.) 1135 (Given - Provider: Ana Avila RLouise) 4 mg, oral, Every 6 hours PRN, [...]
--- OUTSIDE RECORDS SUMMARY | 2022-06-21 10:55 | XMS_ITS | Encounter Summary ---
:1975 Author Organization [facility] Address [address] [place] [address] Care Team Providers Name Role Phone Unavailable [...] Type Department Care Team Description 08/16/2017 Emergency [facility] Moises Desai Col itis Crohn's (HCC) (Primary Dx); Department M.D. Sciatica Left [address] [place] [phone] Social History Tobacco Use Types Packs/Day Years [...] or relatives? How often do you attend buddhist or More than 4 times per year 09/15/2021 islam services? Do you belong to any clubs or Yes 09/15/2021 organizations such as buddhist groups, unions, fraternal or athletic groups, or [...] at Date Recorded Male 09/15/2021 9:14 AM PEDIATRIC NP documented as of this encounter Last Filed Vital Signs Vital Sign Reading Time Taken Comments Blood Pressure 117/86 08/16/2017 11:45 PM PEDIATRIC NP Pulse 80 08/16/2017 11:15 PM PEDIATRIC NP Temperature 37 ??C (98.6 ??F) 08/16/2017 11:45 PM PEDIATRIC NP Respiratory Rate 16 08/16/2017 8:06 PM PEDIATRIC NP Oxygen Saturation 97% 08/16/2017 9:15 PM PEDIATRIC NP Inhaled Oxygen Concentration - - Weight 102 kg (225 lb) 08/16/2017 8:08 PM PEDIATRIC NP Height 185.4 cm (6' 1) 08/16/2017 8:08 PM PEDIATRIC NP Body Mass Index 29.69 08/16/2017 8:08 PM PEDIATRIC NP documented in this encounter Discharge Instructions AttachmentsThe following attachments cannot be sent through Care Everywhere. Sciatica [id number]-[id number] (Persian)documented in this encounter Medications at Time of [...] Sciatica Left Moises Desai M.D. 08/18/17 0244 ATRIC NP documented in this encounter Plan of Treatment Not on filedocumented as of this encounter Procedures Procedure Name Priority Date/Time Associated Comments Diagnosis CT ABDOMEN PELVIS RAD - Semiurgent 08/16/2017 9:51 Res ults for this WITH IV CONTRAST (Fast; most ED PM PEDIATRIC NP procedure are in patients; some the results inpatients) section. CBC WITH STAT 08/16/2017 9:21 Results for this DIFFERENTIAL, B PM PEDIATRIC NP procedure ar e in the results section. BASIC METABOLIC STAT 08/16/2017 9:21 Results f or this PANEL, S/P PM PEDIATRIC NP procedure are i n the results section. C-REACTIVE PROTEIN STAT 08/16/2017 9:19 Result s for this (CRP), S/P PM PEDIATRIC NP procedure are i n the results section. URINALYSIS WITH STAT 08/16/2017 8:20 Results f or this MICROSCOPIC IF PM PEDIATRIC NP procedure are in INDICATED, U the results section. MICROSCOPIC MANUAL STAT 08/16/2017 8:20 Result s for this PM PEDIATRIC NP procedure are i n the results section. documented in this encounter Results CT Abdomen Pelvis with IV Contrast (08/16/2017 9:51 PM PEDIATRIC NP) Anatomical Region Laterality Modality Abdomen, Pelvis N/A Computed Tomography Specimen (Source) Anatomical Collection Method Collection Time Re ceived Time Location / / Volume Laterality 08/16/2017 9:55 PM PEDIATRIC NP Impressions 08/16/2017 9:59 PM PEDIATRIC NP IMPRESSION: 1. Normal-appearing appendix. 2. No acute intra-abdominal/pelvic patho logy, CT of the abdomen and pelvis is within normal limits. No CT findings to explain the patient's symptoms of left lower quadrant abdominal pain. Narrative 08/16/2017 9:59 PM PEDIATRIC NP EXAM: CT ABDOMEN PELVIS WITH IV CONTRAST [...] (ABNORMAL) CBC with Differential (08/16/2017 9:21 PM PEDIATRIC NP) [facility] Method Time Signature Hemoglobin 13.3 13.2 - 08/16/[facility] 16.6 g/dL 9:35 PM [facility] Hematocrit 39.6 38.3 - 08/16/2017 [facility] 48.6 % 9:35 PM [facility] Erythrocytes 4.21 (L) 4.35 - 08/16/2017 [facility] 5.65 9:35 PM PEDIATRIC NP HEALTH x10(12)/L [facility] MCV 94.1 78.2 - 08/16/2017 [facility] 97.9 fL 9:35 PM [facility] RBC Distrib Width 14.1 11.8 - 08/16/2017 [facility] 14.5 % 9:35 PM [facility] Platelet Count 263 135 - 317 08/16/2017 [facility] x10(9)/L 9:35 PM [facility] Leukocytes 5.3 3.4 - 9.6 08/16/2017 [facility] x10(9)/L 9:35 PM [facility] Neutrophils 2.29 1.56 - 08/16/2017 [facility] 6.45 9:35 PM PEDIATRIC NP HEALTH x10(9)/L [facility] Lymphocytes 2.48 0.95 - 08/16/2017 [facility] 3.07 9:35 PM PEDIATRIC NP HEALTH x10(9)/L [facility] Monocytes 0.43 0.26 - 08/16/2017 [facility] 0.81 9:35 PM PEDIATRIC NP HEALTH x10(9)/L [facility] Eosinophils 0.10 0.03 - 08/16/2017 [facility] 0.48 9:35 PM PEDIATRIC NP HEALTH x10(9)/L [facility] Basophils 0.01 0.01 - 08/16/2017 [facility] 0.08 9:35 PM [facility] x10(9)/L [facility] Specimen Anatomical Collection Method Collection Time Receive d Time (Source) Location / / Volume Laterality Blood (Blood, 08/16/2017 9:21 PM 08/16/19 18 9:24 Venous) PEDIATRIC NP PM PEDIATRIC NP Moises Desai M.D. LAB BLOOD ADD-ON Performing Organization Address City/State/ZIP Code Phon e Number [facility] [address] [place] [address] [facility] BMP (Basic Metabolic Panel) (08/16/2017 9:21 PM PEDIATRIC NP) P athologist Signature Potassium, P 4.5 3.6 - 5.2 08/16/2017 [facility] mmol/L 9:54 PM [facility] Sodium, P 141 135 - 145 08/16/2017 [facility] mmol/L 9:54 PM [facility] Chloride, P 103 98 - 107 08/16/2017 [facility] mmol/L 9:54 PM [facility] Bicarbonate, P 28 22 - 29 08/16/2017 [facility] mmol/L 9:54 PM [facility] Anion Gap, P 10 7 - 15 08/16/2017 [facility] 9:54 PM [facility] BUN (Blood Urea 21 8 - 24 08/16/2017 [facility] Nitrogen), P mg/dL 9:54 PM [facility] Creatinine 0.96 0.74 - 08/16/2017 [facility] 1.35 mg/dL 9:54 PM [facility] eGFR-Black/Afri >90 >=60 08/16/2017 [facility] can Venezuelan mL/min/BSA 9:54 PM [facility] Comment: ----ADDITIONAL INFORMATION---- Estimated GFR calculated using the 2009 CKD_EPI creatinine equation. eGFR Non-Black/ >90 >=60 mL/min/BSA 08/16/2017 9:54 PM [facility] Venezuelan [facility] Comment: ----ADDITIONAL INFORMATION---- Estimated GFR calculated using the 2009 CKD_EPI creatinine equation. Calcium, Total, P 9.1 8.9 - 10.1 mg/dL 08/16/2017 9 :54 PM [facility] Glucose, P 102 70 - 140 mg/dL 08/16/2017 9:[address] [facility] Specimen Anatomical Collection Method Collection Time Receive d Time (Source) Location / / Volume Laterality Blood (Blood, 08/16/2017 9:21 PM 08/16/19 18 9:24 Venous) PEDIATRIC NP PM PEDIATRIC NP Moises Desai M.D. LAB BLOOD ADD-ON Performing Organization Address City/[facility]/ZIP Code Phon e Number [place] [id number] [place] [address] [facility] CRP (C-Reactive Protein) (08/16/2017 9:19 PM PEDIATRIC NP) athologist Signature C-Reactive <3.8 <=8.0 mg/L 08/16/2017 [facility] Protein (CRP), 9:54 PM [facility] Specimen Anatomical Collection Method Collection Time Receive d Time (Source) Location / / Volume Laterality Blood (Blood, 08/16/2017 9:19 PM 08/16/19 18 9:32 Venous) PEDIATRIC NP PM PEDIATRIC NP Moises Desai M.D. LAB BLOOD ADD-ON Performing Organization Address City/[facility]/ZIP Code Phon e Number [place] [id number] [place] [address] [facility] (ABNORMAL) Microscopic Manual (08/16/2017 8:20 PM PEDIATRIC NP) Analysis Performed At Patho logist Time Signature White Blood None Seen /hpf 08/16/2017 [facility] Cells 8:34 PM [facility] Comment: ----REFERENCE VALUE---- Males: 0-3 Females: 0-10 Unknown: 0-10 Red Blood Cells None Seen 0 - 2 /hpf 08/16/2017 8:34 PM [facility] 3[facility] Crystals Amorphous (A) None Seen /lpf 08/16/2017 8:34 PM [facility] Specimen Anatomical Collection Method Collection Time Receive d Time (Source) Location / / Volume Laterality Urine 08/16/2017 8:20 PM 8 8:27 PEDIATRIC NP PM PEDIATRIC NP Moises Desai M.D. LAB URINE ORDERABLES Performing Organization Address City/State/ZIP Code Phon e Number [facility] [address] [place] [address] [facility] (ABNORMAL) Urinalysis with Microscopic if Indicated (08/16/2017 8:20 PM PEDIATRIC NP) Analysis Performed At [facility] Time Signature Source Midstream 08/16/2017 [facility] 8:27 PM [facility] Clarity Slightly Clear 08/16/2017 [facility] Cloudy (A) 8:27 PM [facility] Color Yellow 08/16/2017 [facility] 8:27 PM [facility] Comment: ----REFERENCE VALUE---- Colorless Yellow Susy Blood Negative Negative 08/16/2017 8:27 PM [facility] Nitrite Negative Negative 08/16/2017 8:27 PM [facility] Leukocyte Esterase Negative Negative 08/16/2017 8:27 PM CS T [facility] Protein, U Negative mg/dL 08/16/2017 8:27 PM [facility] Comment: ----REFERENCE VALUE---- Negative Trace Glucose Negative Negative mg/dL 08/16/2017 8:27 PM [facility] Ketones, QL(U) Negative Negative mg/dL 08/16/2017 8:27 PM [facility] Bilirubin Negative Negative 08/16/2017 8:27 PM [facility] pH 7.0 5.0 - 8.0 08/16/2017 8:27 PM [facility] Specific [place] 1.020 1.001 - 1.035 08/16/2017 8:27 PM [facility] Urobilinogen 0.2 0.2 - 1.0 mg/dL 08/16/2017 8:27 PM [facility] Specimen Anatomical Collection Method Collection Time Receive d Time (Source) Location / / Volume Laterality Urine 08/16/2017 8:20 PM 8 8:24 PEDIATRIC NP PM PEDIATRIC NP Moises Desai M.D. LAB URINE ORDERABLES Performing Organization Address City/State/ZIP Code Phon e Number [place] [address] [place] [address] [facility] documented in this encounter Visit Diagnoses Diagnosis Colitis Crohn's (HCC) - Primary Sciatica Left documented in this encounter Administered Medications Inactive Administered Medications - up to 3 most recent administrations Medication Order MAR Action Action Date Dose Rate Site HYDROmorphone injection 0.5 mg Given 08/16/2017 11:29 PM PEDIATRIC NP 0.5 mg (for_DILAUDID) 0.5 mg, intravenous, Once, On Mon08/16/17 at 2314, For 1 dose HYDROmorphone injection 1 mg (for_DILAUD ID) Given 08/16/2017 9:27 PM PEDIATRIC NP 1 mg 1 mg, intravenous, Once, On Mon08/16/17 at 2116, For 1 dose iohexol 350 mg iodine/mL solution 1-200 mL Given 08/16/2017 9:53 PM PEDIATRIC NP 100 mL (for_OMNIPAQUE) 1-200 mL, intravenous, Once [...] 30 mg (for_TORADOL) Given 08/16/2017 8:35 PM PEDIATRIC NP 30 mg 30 mg, intravenous, Once, On Mon08/16/17 at 2023, For 1 dose, Adult IV push rate: Over 15 seconds. Peds IV push rate: Over 1 minute. 60 mg dose only for IM, not recommended for IV., Drug Monitoring Program: Pharmacist to adjust medication order based on comorbities and indication. NaCl 0.9 % bolus 1,000 mL New Bag 08/16/2017 8:34 PM PEDIATRIC NP 1,000 mL 999 mL/hr 1,000 mL, intravenous, Once, On Mon08/16/17 at 2023, For 1 dose NaCl 0.9 % bolus 100 mL Bolus from Bag 08/16/2017 9:53 PM PEDIATRIC NP 100 mL 100 mL, intravenous, Once, On Mon08/16/17 at 2153, For 1 dose NaCl 0.9% infusion New Bag 08/16/2017 9:37 PM PEDIATRIC NP 100 mL/hr 100 mL/hr 100 mL/hr, intravenous, Continuous, Starting on Mon08/16/17 at 2115 ondansetron (PF) injection 4 mg (for_ZOF RAN) Given 08/16/2017 9:32 PM PEDIATRIC NP 4 mg 4 mg, intravenous, Once, On Mon08/16/17 at 2115, For 1 dose predniSONE tablet 40 mg (for_DELTASONE) Given 08/16/2017 11:28 PM PEDIATRIC NP 40 mg 40 mg, oral, Once, On Mon08/16/17 at 2313, For 1 dose sodium chloride 0.9 % injection 10 mL Given 08/16/2017 9:53 PM PEDIATRIC NP 10 mL 10 mL, intravenous, Once, On Mon08/16/17 at 2153, For 1 dose sodium chloride 0.9 % injection 2-10 mL 2-10 mL, intravenous, As needed, line care, Starting o n Mon08/16/17 at 2021 documented in this encounter Active and Recently Administered Medications Times are shown in PEDIATRIC NP. Scheduled Medication Order 08/14/2017 08/15/2017 08/16/2017 HYDROmorphone injection 0.5 mg (for_DILAUDID) (COMPLETED) 2328 (Given - Provider: Crystal Rosenthal RDerikNDerik) 0.5 mg, intravenous, Once, Mon08/16/17 at 2314, For 1 dose HYDROmorphone injection 1 mg (for_DILAUDID) (COMPLETED) 2126 (Given - Provider: Crystal Rosenthal R.Avtar) 1 mg, intravenous, Once, Mon08/16/17 at 2115, For 1 dose ketorolac injection 30 mg (for_TORADOL) (COMPLETED) 2034 (Given - Provider: Crystal Rosenthal RLouise) 30 mg, intravenous, Once, 08/16/17 at 2023, [...] (Bolus from Bag - Provider: Brittany Elaine(R)(CT), RSaleem(R))2153 (Due) 100 mL, intravenous, Once, 08/16/17 at [...] 08/16/17 at 2116 PRN Medication Order 08/14/2017 08/15/201708/16/2017 iohexol 350 mg iodine/mL solution 1-200 mL [...] intravenous, As needed, line ca re, Starting 08/16/17 at 2021 documented in this encounter
--- OUTSIDE RECORDS SUMMARY | 2022-06-21 10:55 | XMS_ITS | Encounter Summary ---
:1975 Author Organization [facility] Address [address] [place] [address] Care Team Providers Name Role Phone Unavailable Primary Care Provider Unavailable Reason for Referral Outpatient (Routine) - Closed Specialty Diagnoses / Procedures Referred By Contact Refer red To Contact Diagnoses Obstruction Intestinal (HCC) Ynes Nguyen M.D. [facility] Procedures Colonoscopy [address] [place] [address] Referral ID Status Reason Start Date Expiration Date Visits Requ ested Visits Authorized [id number] Closed 09/07/2021 09/07/2022 1 1 RETE VAULT MAKER MRI/CAT/PET Scan (Routine) - Closed Specialty Diagnoses / Procedures Referred By Contact Refer red To Contact Radiology Diagnoses Obstruction Intestinal (HCC) Ynes Nguyen M.D. [facility] Procedures CT Abdomen Pelvis Enterography with IV Contrast [address] [place] [address] Referral ID Status Reason Start Date Expiration Date Visits Requ ested Visits Authorized [id number] Closed 09/07/2021 09/07/2022 1 1 RETE VAULT MAKER Encounter Details Date Type Department Care Team Description 09/07/2021 Clinical Communication Division of [facility] in Ynes Tejeda M.D. [place], [place] [address] [facility] [address] [place] [phone] Social History Tobacco Use Types Packs/Day Years [...] More than 4 times per year 09/15/2021 judaism services? Do you belong to any clubs or Yes 09/15/2021 organizations such as presybeterian groups, unions, fraternal or athletic groups, or [...] or slept in a usp (including now)? Sex Assigned at Date Recorded Male 09/15/2021 9:14 AM CONCRETE VAULT MAKER documented as of this encounter Plan of Treatment Not on filedocumented as of this encounter Results CT Abdomen Pelvis Enterography with IV Contrast (09/10/2021 12:36 PM CONCRETE VAULT MAKER) Anatomical Region Laterality Modality Abdomen, Pelvis, Abdominal RST LOS, N/A Comp uted Tomography, Computed Abdominal ARZ LOS, Abdominal FLA LOS Lakhwinder ography Specimen (Source) Anatomical Collection Method Collection Time Re ceived Time Location / / Volume Laterality 09/10/2021 12:35 PM CONCRETE VAULT MAKER Impressions 09/10/2021 1:22 PM CONCRETE VAULT MAKER 1. Interval resolution of small bowel obstruction. 2. No convincing evidence of Crohn's dis ease involving the small bowel. 3. Given the history of NSAID use and fi ndings on the comparison study suggesting the possibility of obstructing diaphragms, small bowel seri es could be performed for further evaluation. Narrative 09/10/2021 1:22 PM CONCRETE VAULT MAKER EXAM: ??CT ABDOMEN PELVIS ENTEROGRAPHY WITH IV [...]
--- OUTSIDE RECORDS SUMMARY | 2022-06-21 10:55 | XMS_ITS | Encounter Summary ---
:1975 Author Organization [facility] Address [address] [place] [address] Care Team Providers Name Role Phone Unavailable Primary Care Provider Unavailable Encounter Details Date Type Department Care Team Description 03/12/2014 Hospital Encounter HX [facility] Arteaga, SID, C.N.P., ELIOT, R.N. Social History Tobacco Use Types Packs/Day [...] or relatives? How often do you attend jewish or More than 4 times per year 09/15/2021 mandaen services? Do you belong to any clubs or Yes 09/15/2021 organizations such as jewish groups, unions, fraternal or athletic groups, or [...] or slept in a retirement (including now)? 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 - 03/12/2014 10:59 AM CDT Vision Testing Vision Testing Entered On: 03/12/2014 10:59 CDT Performed On: 03/12/2014 10:59 CDT by EDGAR SON RN Vision Testing Vision Testing Not Done : Done elsewhere Corrective Lenses : None EDGAR SON RN - 03/12/2014 10:59 CDT Source: [employer] Document Id: [id number] CDT!4 Edgar Son R.N. - 03/12/2014 10:59 AM CDT Urine Dipstick Urine Dipstick Entered On: 03/12/2014 11:00 CDT Performed On: 03/12/2014 10:59 CDT by EDGAR SON RN Urine Dipstick UA Color POC : Yellow UA Appear POC : Clear Test Strip Lot # : [id number] Test Strip Expiration Date : 2015-01 EDGAR SON RN - 03/12/2014 10:59 CDT Source: [place] [employer] Document Id: [id number] CDT!6 documented in this encounter Plan of [...] 10:59 AM CDT Malena Frances APRN, C.N.P., [place], R.N. LAB POCT ORDERAB LES-MANUAL Performing Organization Address City/State/ZIP Code Phon e Number POWERCHART documented in this encounter Visit Diagnoses Not on filedocumented in this encounter
--- OUTSIDE RECORDS SUMMARY | 2022-06-21 10:55 | XMS_ITS | Encounter Summary ---
:1975 Author Organization [facility] Address [address] [place] [address] Care Team Providers Name Role Phone Unavailable Primary Care Provider Unavailable Encounter Details Date Type Department Care Team Description 03/09/2021 Orders Only [facility] Sa chico Gurrola M.D. [address] [place], [place] [phone] (Wo rk) Social History [...] or relatives? How often do you attend scientology or More than 4 times per year 09/15/2021 baptism services? Do you belong to any clubs or Yes 09/15/2021 organizations such as scientology groups, unions, fraternal or athletic groups, or [...] place to sleep or slept in a fci (including now)? 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
--- OUTSIDE RECORDS SUMMARY | 2022-06-21 10:56 | XMS_ITS | Encounter Summary ---
:1975 Author Organization [facility] Address [address], [place] [address] Care Team Providers Name Role Phone Silvestre Cortez MD Primary Care Provider Encounter Details Date Type Department Care Team Description 06/04/2019 Lab Visit [facility] 3850 Inflammat ory arthritis; Laboratory Primary osteoarthritis invol ving multiple joints; [address] [place] [address] Social History Tobacco Use Types Packs/Day Years [...] white blood cells and red blood cells. OYMENT TRAINER documented in this encounter Plan of Treatment Not on filedocumented as of this encounter Procedures Procedure Name Priority Date/Time Associated Diagnosis Comme nts CBC AND DIFFERENTIAL Routine 06/04/2019 10:50 Inflammato ry arthritis Results for this PANEL AM EMPLOYMENT TRAINER Chronic pain syndrome proced ure are in the results section. CREATININE / GFR Routine 06/04/2019 10:50 Inflammatory a rthritis Results for this AM EMPLOYMENT TRAINER Chronic pain syndrome proced ure are in the results section. COMPLETE BLOOD Routine 06/04/2019 10:50 Inflammatory ar thritis Results for this COUNT-W/DIFF AM EMPLOYMENT TRAINER Chronic pain syndrome proced ure are in the results section. ELP, CASCADE, SERUM Routine 06/04/2019 10:50 Inflammator y arthritis Results for this AM EMPLOYMENT TRAINER Primary osteoarthritis proce dure are in involving multiple the resul ts joints section. Chronic pain syndrome DIFFERENTIAL Routine 06/04/2019 10:50 Inflammatory ar thritis Results for this AM EMPLOYMENT TRAINER Chronic pain syndrome proced ure are in the results section. HLA B27 Routine 06/04/2019 10:50 Inflammatory ar thritis Results for this AM EMPLOYMENT TRAINER Primary osteoarthritis proce dure are in involving multiple the resul ts joints section. Chronic pain syndrome C-REACTIVE PROTEIN Routine 06/04/2019 10:50 Inflammatory arthritis Results for this AM EMPLOYMENT TRAINER Primary osteoarthritis proce dure are in involving multiple the resul ts joints section. Chronic pain syndrome URIC ACID Routine 06/04/2019 10:50 Inflammatory ar thritis Results for this AM EMPLOYMENT TRAINER Primary osteoarthritis proce dure are in involving multiple the resul ts joints section. Chronic pain syndrome ALT (SGPT) Routine 06/04/2019 10:50 Inflammatory ar thritis Results for this AM EMPLOYMENT TRAINER Chronic pain syndrome proced ure are in the results section. AST Routine 06/04/2019 10:50 Inflammatory ar thritis Results for this AM EMPLOYMENT TRAINER Chronic pain syndrome proced ure are in the results section. ESR Routine 06/04/2019 10:50 Inflammatory ar thritis Results for this AM EMPLOYMENT TRAINER Primary osteoarthritis proce dure are in involving multiple the resul ts joints section. Chronic pain syndrome documented in this encounter Results (ABNORMAL) Differential (06/04/2019 10:50 AM EMPLOYMENT TRAINER) [facility] Method Time Signature RBC Morphology Reviewed 06/04/2019 [facility] 11:39 AM EMPLOYMENT TRAINER [address] LABORATORY Platelet Adequate Adequate 06/04/2019 [facility] Estimate 11:39 AM EMPLOYMENT TRAINER [address] LAB[address]ATORY Neutrophil 1.5 (L) 1.7 - 7.0 06/04/2019 [facility] Absolute 10(9)/L 11:39 AM EMPLOYMENT TRAINER [address] LABORATORY Lymphocyte 1.4 1.0 - 4.8 06/04/2019 [facility] Absolute 10(9)/L 11:39 AM EMPLOYMENT TRAINER [address] LABORATORY Monocytes 0.4 0.2 - 0.9 06/04/2019 [facility] Absolute 10(9)/L 11:39 AM EMPLOYMENT TRAINER [address] LABORATORY Eosinophil 0.1 0.0 - 0.5 06/04/2019 [facility] Absolute 10(9)/L 11:39 AM EMPLOYMENT TRAINER [address] LABORATORY Basophil 0.0 0.0 - 0.3 06/04/2019 [facility] Absolute 10(9)/L 11:39 AM EMPLOYMENT TRAINER [address] LABORATORY Specimen Anatomical Collection Method / Collection Time Recei niranjan Time (Source) Location / Volume Laterality Blood Venipuncture / 06/04/2019 10:50 9 Unknown AM EMPLOYMENT TRAINER 10:50 AM EMPLOYMENT TRAINER Dean Chi MD LAB_1 Performing Organization Address City/State/ZIP Code Phon e Number [facility] [address] [place], [place] [phone] [address] Complete Blood Count-W/Diff (06/04/2019 10:50 AM EMPLOYMENT TRAINER) P athologist Signature WBC 3.5 3.5 - 10.5 06/04/2019 [facility] x10(9)/L 11:39 AM EMPLOYMENT TRAINER [address] LABORATORY RBC 4.59 4.32 - 06/04/2019 [facility] 5.72 11:39 AM EMPLOYMENT TRAINER 3850 LABORATORY x10(12)/L Hemoglobin 14.2 13.5 - 06/04/2019 [facility] 17.5 g/dL 11:39 AM EMPLOYMENT TRAINER [address] LAB[address]ATORY HCT 41.9 38.8 - 06/04/2019 [facility] 50.0 % 11:39 AM EMPLOYMENT TRAINER [address] LAB[address]ATORY MCV 91.3 80.0 - 06/04/2019 [facility] 100.0 fL 11:39 AM EMPLOYMENT TRAINER [address] LAB[address]ORY MCH 30.9 27.6 - 06/04/2019 [facility] 33.3 pg 11:39 AM EMPLOYMENT TRAINER [address] LAB[address]ATORY MCHC 33.9 31.5 - 06/04/2019 [facility] 35.2 g/dL 11:39 AM EMPLOYMENT TRAINER [address] LAB[address]AT[address] RDW 13.5 11.9 - 06/04/2019 [facility] 15.5 % 11:39 AM EMPLOYMENT TRAINER [address] LABORATORY Platelets 297 150 - 450 06/04/2019 [facility] x10(9)/L 11:39 AM EMPLOYMENT TRAINER [address] LABORATORY Automated NRBC 0 <=0 /100 06/04/2019 [facility] WBC 11:39 AM EMPLOYMENT TRAINER [address] LABORATORY Specimen Anatomical Collection Method / Collection Time Recei niranjan Time (Source) Location / Volume Laterality Blood Venipuncture / 06/04/2019 10:50 9 Unknown AM EMPLOYMENT TRAINER 10:50 AM EMPLOYMENT TRAINER Dean Chi MD LAB_1 Performing Organization Address City/State/ZIP Code Phon e Number [facility] [address] [place] [address] [address] CREAT - Creatinine - standing Q3 months (06/04/2019 10:50 AM EMPLOYMENT TRAINER) athologist Signature Creatinine 0.89 0.73 - 06/04/2019 [facility] 1.18 mg/dL 11:41 AM EMPLOYMENT TRAINER [address] LABORATORY GFR, Estimated >60 >60 06/04/2019 [facility] mL/min/1.7 11:41 AM EMPLOYMENT TRAINER [address] LABORATORY 3m2 GFR, Est If >60 >60 06/04/2019 [facility] mL/min/1.7 11:41 AM EMPLOYMENT TRAINER [address] LAB[address]AT[address] Gabonese 3m2 Specimen Anatomical Collection Method / Collection Time Recei niranjan Time (Source) Location / Volume Laterality Blood Venipuncture / 06/04/2019 10:50 9 Unknown AM EMPLOYMENT TRAINER 10:50 AM EMPLOYMENT TRAINER Dean Chi MD LAB_1 Performing Organization Address City/State/ZIP Code Phon e Number [facility] [address] [place], [place] [address] [address] AST - Aspartate Aminotransferase - standing Q3 months (06/04/2019 10:50 AM EMPLOYMENT TRAINER) athologist Signature AST (SGOT) 31 10 - 40 U/L 06/04/2019 [facility] 11:41 AM EMPLOYMENT TRAINER [address] LABORATORY Specimen Anatomical Collection Method / Collection Time Recei niranjan Time (Source) Location / Volume Laterality Blood Venipuncture / 06/04/2019 10:50 9 Unknown AM EMPLOYMENT TRAINER 10:50 AM EMPLOYMENT TRAINER Dean Chi MD LAB_1 Performing Organization Address City/State/ZIP Code Phon e Number [facility] [address] [place], [place] [address] [address] (ABNORMAL) ALT - Alanine Aminotransferase - standing Q3 months (06/04/2019 10:50 AM EMPLOYMENT TRAINER) P athologist Signature ALT (SGPT) 56 (H) 0 - 55 U/L 06/04/2019 [facility] 11:41 AM EMPLOYMENT TRAINER [address] LABORATORY Specimen Anatomical Collection Method / Collection Time Recei niranjan Time (Source) Location / Volume Laterality Blood Venipuncture / 06/04/2019 10:50 9 Unknown AM EMPLOYMENT TRAINER 10:50 AM EMPLOYMENT TRAINER Dean Chi MD LAB_1 Performing Organization Address City/[facility] Phon e Number [facility] [address] [place] [address] [address] HLA B27 (06/04/2019 10:50 AM EMPLOYMENT TRAINER) athologist Signature HLA B27 Negative Negative 06/04/2019 [facility] 4:31 PM [facility] Specimen Anatomical Collection Method / Collection Time Recei niranjan Time (Source) Location / Volume Laterality Blood Venipuncture / 06/04/2019 10:50 9 Unknown AM EMPLOYMENT TRAINER 10:50 AM EMPLOYMENT TRAINER [facility]ly [facility] - 06/04/2019 4:31 PM T This test was developed and the performance characteristics were determined by [facility]. It has not been cleared or approved by t U.S. Food and Drug Administration. The FDA farooq s determined that such clearance or approv al is not necessary. Dean Chi MD LAB_1 Performing Organization Address City/[facility]/ZIP Code Phon e Number [facility] [address] [place] [address] ELCP - Electrophoresis [place] To DEWEY,Serum (06/04/2019 10:50 AM EMPLOYMENT TRAINER) Component Value Ref Test Analysis Performed At Patholo gist Range Method Time Signature Total Protein 7.8 6.4 - 06/05/2019 [facility] 8.3 11:11 AM CENTRAL LAB g/dL EMPLOYMENT TRAINER Albumin 4.7 3.4 - 06/05/2019 [facility] 4.8 11:11 AM CENTRAL LAB g/dL EMPLOYMENT TRAINER Alpha 1 0.3 0.2 - 06/05/2019 [facility] 0.5 11:11 AM CENTRAL LAB g/dL EMPLOYMENT TRAINER Alpha 2 0.7 0.5 - 06/05/2019 [facility] 1.1 11:11 AM CENTRAL LAB g/dL EMPLOYMENT TRAINER Beta 1.0 0.6 - 06/05/2019 [facility] 1.1 11:11 AM CENTRAL LAB g/dL EMPLOYMENT TRAINER Gamma 1.1 0.7 - 06/05/2019 [facility] 1.6 11:11 AM CENTRAL LAB g/dL EMPLOYMENT TRAINER Monoclonal Laurent 0.0 <=0.0 06/05/2019 [facility] g/dL 11:11 AM CENTRAL LAB EMPLOYMENT TRAINER Interpretation No monoclonal 06/05/2019 [facility] protein is 11:11 AM CENTRAL LAB detected in the EMPLOYMENT TRAINER serum. Additional Not indicated. 06/05/2019 [facility] Testing 11:11 AM CENTRAL LAB EMPLOYMENT TRAINER Signed Out By [facility] 06[facility]05/2019 [facility] Central 11:11 AM CENTRAL LAB Laboratory EMPLOYMENT TRAINER Specimen Anatomical Collection Method / Collection Time Recei niranjan Time (Source) Location / Volume Laterality Blood Venipuncture / 06/04/2019 10:50 9 Unknown AM EMPLOYMENT TRAINER 10:50 AM EMPLOYMENT TRAINER Dean Chi MD LAB_1 Performing Organization Address City/[facility]/ZIP Code Phon e Number [facility] CENTRAL LAB [address] [address] ESR - Sedimentation Rate (06/04/2019 10:50 AM EMPLOYMENT TRAINER) Patholo gist Method Time Signature Sedimentation Rate 14 0 - 15 06/04/2019 [facility] P ARK mm/hr 12:30 PM EMPLOYMENT TRAINER [address] LABORATORY Specimen Anatomical Collection Method / Collection Time Recei niranjan Time (Source) Location / Volume Laterality Blood Venipuncture / 06/04/2019 10:50 9 Unknown AM EMPLOYMENT TRAINER 10:50 AM EMPLOYMENT TRAINER Dean Chi MD LAB_1 Performing Organization Address City/[facility]/ZIP Code Phon e Number [facility] [address] [place], [place] [address] [address] CRP - C Reactive Protein (06/04/2019 10:50 AM EMPLOYMENT TRAINER) P athologist Signature C-Reactive <0.5 0.0 - 0.7 06/04/2019 [facility] Protein mg/dL 11:41 AM EMPLOYMENT TRAINER [address] LABORATORY Specimen Anatomical Collection Method / Collection Time Recei niranjan Time (Source) Location / Volume Laterality Blood Venipuncture / 06/04/2019 10:50 9 Unknown AM EMPLOYMENT TRAINER 10:50 AM EMPLOYMENT TRAINER Dean Chi MD LAB_1 Performing Organization Address City/State/ZIP Code Phon e Number [facility] [address] [place], [place] [phone] [address] (ABNORMAL) URIC - Uric Acid (06/04/2019 10:50 AM EMPLOYMENT TRAINER) P athologist Signature Uric Acid 8.6 (H) 3.5 - 7.2 06/04/2019 [facility] mg/dL 11:41 AM EMPLOYMENT TRAINER [address]50 LABORATORY Specimen Anatomical Collection Method / Collection Time Recei niranjan Time (Source) Location / Volume Laterality Blood Venipuncture / 06/04/2019 10:50 9 Unknown AM EMPLOYMENT TRAINER 10:50 AM EMPLOYMENT TRAINER Dean Chi MD LAB_1 Performing Organization Address City/[facility]/ZIP Code Phon e Number [facility] [address] [place], [place] [address] [address] documented in this encounter Visit Diagnoses Diagnosis Inflammatory arthritis 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
--- OUTSIDE RECORDS SUMMARY | 2022-06-21 10:56 | XMS_ITS | Encounter Summary ---
:1975 Author Organization [facility] Address [address] [place] [address] Care Team Providers Name Role Phone Silvestre Cortez MD Primary Care Provider Reason for Visit Reason Comments Medication Questions BODY ACHES Encounter Details Date Type Department Care Team Description 06/07/2019 Telephone [facility] [address] Dean Chi MD Medication Questions; Rheumatology [address] BODY ACHES [address] [place] [id number] [phone] Social History Tobacco Use Types Packs/Day Years Used Date Smoking Tobacco: Never Sex Assigned at Date Recorded Not on file documented as of this encounter Nursing Notes Samira Rubio LPN - 06/07/2019 2:45 PM CST Called patient back and they verbalized an understanding. They were encouraged to call back with anyfuture questions or concerns. Dean Kwon MD - 06/07/2019 1:22 PM CST Recommend a trial with a short course of prednisone tapering dose. Will send a prescription to the pharmacy. Evie Koenig LPN - 06/07/2019 8:50 AM CST Patient states he was seen 06-04 and was told to see his PCP. [...] skin. Refer to pain clinic? Thank you. CUTTER documented in this encounter Plan of Treatment Not on filedocumented as of this encounter Visit Diagnoses Diagnosis Inflammatory arthritis - Primary Unspecified inflammatory polyarthropathy documented in this encounter Care Teams Patient Care Relationship Specialty Start Date End Date Silvestre Cortez MD PCP - General 05/21/191999 [place] [address] documented as of this encounter
--- OUTSIDE RECORDS SUMMARY | 2022-06-21 10:56 | XMS_ITS | Encounter Summary ---
:1975 Author Organization [facility] Address [address] [place] [address] Care Team Providers Name Role Phone Silvestre Cortez MD Primary Care Provider Encounter Details Date Type Department Care Team Description 09/11/2019 Lab Visit [facility] Inflammatory arthritis; [address] [address] Social History Tobacco Use Types Packs/Day Years Used Date Smoking Tobacco: Never Sex Assigned at Date Recorded Not on file documented as of this encounter Progress Notes Dean Chi MD - 09/11/2019 3:20 PM CST Recent blood work shows mild elevation of liver enzymes which was present prior to starting methotrexate. No significant change from previous measurements. Normal kidney function. Normal white blood cells, red blood cells and platelet count. MACY HELPER documented in this encounter Plan of Treatment Not on filedocumented as of this encounter Procedures Procedure Name Priority Date/Time Associated Diagnosis Comme nts CBC REVIEW Routine 09/11/2019 3:18 PM Inflammatory arthritis Results for this PHARMACY HELPER Chronic pain syndrome proced ure are in the results section. CREATININE / GFR Routine 09/11/2019 3:18 PM Inflammatory arthritis Results for this PHARMACY HELPER Chronic pain syndrome proced ure are in the results section. ALT (SGPT) Routine 09/11/2019 3:18 PM Inflammatory arthritis Results for this PHARMACY HELPER Chronic pain syndrome proced ure are in the results section. documented in this encounter Results (ABNORMAL) Complete Blood Count -W/Diff Review (09/11/2019 3:18 PM PHARMACY HELPER) Patholo gist Method Time Signature Hematology 09/11/2019 [facility] Review 9:00 PM PHARMACY HELPER LABORATORY WBC 4.1 3.5 - 10.5 09/11/2019 [facility] x10(9)/L 9:00 PM PHARMACY HELPER LABORATORY RBC 4.27 (L) 4.32 - 09/11/2019 [facility] 5.72 9:00 PM PHARMACY HELPER LABORATORY x10(12)/L Hemoglobin 13.7 13.5 - 09/11/2019 [facility] 17.5 g/dL 9:00 PM PHARMACY HELPER LABORATORY HCT 40.7 38.8 - 09/11/2019 [facility] 50.0 % 9:00 PM PHARMACY HELPER LABORATORY MCV 95.3 80.0 - 09/11/2019 [facility] 100.0 fL 9:00 PM PHARMACY HELPER LABORATORY MCH 32.1 27.6 - 09/11/2019 [facility] 33.3 pg 9:00 PM PHARMACY HELPER LABORATORY MCHC 33.7 31.5 - 09/11/2019 [facility] 35.2 g/dL 9:00 PM PHARMACY HELPER LABORATORY RDW 15.6 (H) 11.9 - 09/11/2019 [facility] 15.5 % 9:00 PM PHARMACY HELPER LABORATORY Platelets 359 150 - 450 09/11/2019 [facility] x10(9)/L 9:00 PM PHARMACY HELPER LABORATORY Automated NRBC 0 <=0 /100 09/11/2019 [facility] WBC 9:00 PM PHARMACY HELPER LABORATORY Neutrophil 1.5 (L) 1.7 - 7.0 09/11/2019 [facility] Absolute 10(9)/L 9:00 PM PHARMACY HELPER LABORATORY Lymphocyte 2.0 1.0 - 4.8 09/11/2019 [facility] 10(9)/L 9:00 PM PHARMACY HELPER LABORATORY Monocytes 0.5 0.2 - 0.9 09/11/2019 [facility] 10(9)/L 9:00 PM PHARMACY HELPER LABORATORY Eosinophil 0.2 0.0 - 0.5 09/11/2019 [facility] 10(9)/L 9:00 PM PHARMACY HELPER LABORATORY Basophil 0.0 0.0 - 0.3 09/11/2019 [facility] 10(9)/L 9:00 PM PHARMACY HELPER LABORATORY Immature Gran % 0.2 0.0 - 0.5 09/11/2019 [facility] % 9:00 PM PHARMACY HELPER LABORATORY Specimen Anatomical Collection Method / Collection Time Recei niranjan Time (Source) Location / Volume Laterality Blood Venipuncture / 09/11/2019 3:18 09/11/2019 3:33 Unknown PM PHARMACY HELPER PM PHARMACY HELPER Dean Chi MD LAB_1 Performing Organization Address City/State/ZIP Code Phon e Number [facility] [address] [place] [address] CREAT - Creatinine - standing Q3 months (09/11/2019 3:18 PM PHARMACY HELPER) athologist Signature Creatinine 1.00 0.73 - 09/11/2019 [facility] 1.18 mg/dL 8:32 PM PHARMACY HELPER LABORATORY GFR, Estimated >60 >60 09/11/2019 [facility] mL/min/1.7 8:32 PM PHARMACY HELPER LABORATORY 3m2 GFR, Est If >60 >60 09/11/2019 [facility] mL/min/1.7 8:32 PM PHARMACY HELPER LABORATORY Haitian 3m2 Specimen Anatomical Collection Method / Collection Time Recei niranjan Time (Source) Location / Volume Laterality Blood Venipuncture / 09/11/2019 3:18 09/11/2019 3:18 Unknown PM PHARMACY HELPER PM PHARMACY HELPER Dean Chi MD LAB_1 Performing Organization Address City/State/ZIP Code Phon e Number [facility] [address] [place] [address] (ABNORMAL) ALT - Alanine Aminotransferase - standing Q3 months (09/11/2019 3:18 PM PHARMACY HELPER) athologist Signature ALT (SGPT) 57 (H) 0 - 55 U/L 09/11/2019 [facility] 8:32 PM PHARMACY HELPER LABORATORY Specimen Anatomical Collection Method / Collection Time Recei niranjan Time (Source) Location / Volume Laterality Blood Venipuncture / 09/11/2019 3:18 09/11/2019 3:18 Unknown PM PHARMACY HELPER PM PHARMACY HELPER Dean Chi MD LAB_1 Performing Organization Address City/State/ZIP Code Phon e Number [facility] [address] [place], [place] [phone] documented in this encounter Visit Diagnoses Diagnosis Inflammatory arthritis Unspecified inflammatory polyarthropathy Chronic pain syndrome documented in this encounter Care Teams Business Integration Manager Relationship Specialty Start Date End Date Silvestre Cortez MD PCP - General 05/21/191999 [place] [address] documented as of this encounter
--- OUTSIDE RECORDS SUMMARY | 2022-06-21 10:56 | XMS_ITS | Encounter Summary ---
:1975 Author Organization [facility] Address [address] [place] [address] Care Team Providers Name Role Phone Silvestre Cortez MD Primary Care Provider Encounter Details Date Type Department Care Team Description 09/13/2019 Notes/Orders [facility] [address] Dean Chi MD Rheumatology [address] [place] [address] [place] [address] [phone] Social History Tobacco Use Types Packs/Day Years Used Date Smoking Tobacco: Never Sex Assigned at Date Recorded Not on file documented as of this encounter Plan of Treatment Not on filedocumented as of this encounter Visit Diagnoses Not on filedocumented in this encounter Care Teams Product Safety Head Relationship Specialty Start Date End Date Silvestre Cortez MD PCP - General 05/21/191999 [place] [address] documented as of this encounter
--- OUTSIDE RECORDS SUMMARY | 2022-06-21 10:56 | XMS_ITS | Clinical Summary ---
:1975 Author Organization [facility] Address [address] [place] [address] Care Team Providers Name Role Phone Silvestre [...] for each transition of care or referral. [email or web address] Allergies No known active allergies Medications Medication [...] Comments Blood Pressure 141/85 09/13/2019 10:28 AM HEAD BOYS GOLF COACH Pulse 77 06/04/2019 9:18 AM HEAD BOYS GOLF COACH Temperature 36.7 ??C (98 ??F) 09/13/2019 10:28 AM HEAD BOYS GOLF COACH Respiratory Rate - - Oxygen Saturation - - Inhaled Oxygen Concentration - - Weight 110.7 kg (244 lb) 06/04/2019 9:18 AM HEAD BOYS GOLF COACH Height - - Body Mass Index - [...] age to complete this topic Care Teams Ash Conveyor Operator Relationship Specialty Start Date End Date Silvestre Cortez MD PCP - General 05/21/191999 [place] [address]
--- OUTSIDE RECORDS SUMMARY | 2022-06-21 10:56 | XMS_ITS | Encounter Summary ---
:1975 Author Organization [facility] Address [address], [place] [address] Care Team Providers Name Role Phone Silvestre Cortez MD Primary Care Provider Reason for Visit Procedure/Equipment (Routine) - Incomplete Specialty Diagnoses / Procedures Referred By Contact Refer red To Contact Diagnoses Inflammatory arthritis Primary osteoarthritis involving multiple joints Chronic pain syndrome Dean Chi MD Procedures XR Foot/Feet Arthritis [address] [place], [place] [address] Referral ID Status Reason Start Date Expiration Date Visits V isits Requested Authorized [id number] Incomplete 06/04/2019 09/02/2020 1 1 Encounter Details Date Type Department Care Team Description 06/04/[address] [facility] [address] Dean Chi MD Inflammatory arthritis; Procedure Radiology [address] Primary osteoarthritis invol ving multiple joints; [address] [facility] Chronic [place] [address] [place] [address] [phone] Social History Tobacco Use Types Packs/Day Years Used Date Smoking Tobacco: Never Sex Assigned at Date Recorded Not on file documented as of this encounter Progress Notes Dean Chi MD - 06/04/2019 10:35 AM CST X-ray of the feet shows mild degenerative joint disease/osteoarthritis predominantly in the 1st toe in both feet. ESSIONAL DEVELOPMENT INSTRUCTOR documented in this encounter Plan of Treatment Not on filedocumented as of this encounter Procedures Procedure Name Priority Date/Time Associated Diagnosis Comme nts XR FEET 1 VIEW Routine 06/04/2019 10:43 Inflammatory ar thritis Results for this BILAT ARTHRITIS AM PROFESSIONAL DEVELOPMENT INSTRUCTOR Primary osteoarthritis pr ocedure are in involving multiple the resul ts joints section. Chronic pain syndrome documented in this encounter Results XR Foot/Feet Arthritis (06/04/2019 10:43 AM PROFESSIONAL DEVELOPMENT INSTRUCTOR) Anatomical Region Laterality Modality Lower Extremity, Foot Digital Radiograph y Specimen (Source) Anatomical Collection Method Collection Time Re ceived Time Location / / Volume Laterality 06/04/2019 10:23 AM PROFESSIONAL DEVELOPMENT INSTRUCTOR Impressions 06/04/2019 11:53 AM PROFESSIONAL DEVELOPMENT INSTRUCTOR COMPARISON: ??None. FINDINGS: ??AP arthritis series of [...] syndrome documented in this encounter Care Teams Floater Operator Relationship Specialty Start Date End Date Silvestre Cortez MD PCP - General 05/21/191999 [place] [address] documented as of this encounter
--- OUTSIDE RECORDS SUMMARY | 2022-06-21 10:56 | XMS_ITS | Encounter Summary ---
:1975 Author Organization [facility] Address [address] [address] Care Team Providers Name Role Phone Silvestre Cortez MD Primary Care Provider Reason for Referral Procedure/Equipment (Routine) - Incomplete Specialty Diagnoses / Procedures Referred By Contact Refer red To Contact Diagnoses Inflammatory arthritis Primary osteoarthritis involving multiple joints Chronic pain syndrome Dean Chi MD Procedures XR Foot/Feet Arthritis [address] [place], [place] [address] Referral ID Status Reason Start Date Expiration Date Visits V isits Requested Authorized [id number] Incomplete 06/04/2019 09/02/2020 1 1 T BAILIFF Procedure/Equipment (Routine) - Incomplete Specialty Diagnoses / Procedures Referred By Contact Refer red To Contact Diagnoses Inflammatory arthritis Primary osteoarthritis involving multiple joints Chronic pain syndrome Dean Chi MD Procedures XR Hand(s) Arthritis [address] [place], [place] [address] Referral ID Status Reason Start Date Expiration Date Visits V isits Requested Authorized [id number] Incomplete 06/04/2019 09/02/2020 1 1 T BAILIFF Reason for Visit Reason Comments CONSULT Encounter Details Date Type Department Care Team Description 06/04/2019 Office Visit [facility] 3800 Dean Chi MD Inflammatory arthritis (Primary Dx); Rheumatology [address] Primary osteoarthritis invol ving multiple joints; [address] [place] [address] [phone] Social History Tobacco Use Types Packs/Day Years Used Date Smoking Tobacco: Never Sex Assigned at Date Recorded Not on file documented as of this encounter Last Filed Vital Signs Vital Sign Reading Time Taken Comments Blood Pressure 127/78 06/04/2019 9:[address] [facility]AILIFF Pulse 77 06/04/2019 9:[address] [facility] Temperature - - Respiratory Rate - - Oxygen Saturation - - Inhaled Oxygen Concentration - - Weight 110.7 kg (244 lb) 06/04/2019 9:[address] [facility]AIL[place] Height - - Body Mass Index - [...] clinic in 3 months for follow up. T BAILIFF documented in this encounter Progress Notes Dean Chi MD - 06/04/2019 9:30 AM CST Rheumatology New Patient/Consult Note Referral: Claude Tate MD [address] [place] [address] Chief Complaint Patient presents with ??? 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 Does not sleep well. Indicates that intermittently [...] for today's visit was reviewed, sent to [facility], and is as noted above and/or notable [...] and Plan: Reviewing recent laboratory data from [facility], normal CBC, normal ESR and CRP, negative [...] recognition software. As a result,wrong word or 'fpjon-d-snhf' substitutions may have occurred due to the inherent limitations of voice recognition software. There may be errors in the script that have gone undetected. Please consider this when interpreting information found in this chart. T BAILIFF documented in this encounter Plan of Treatment Not on filedocumented as of this encounter Results HLA B27 (06/04/2019 10:[address] BAILIFF) athologist Signature HLA B27 Negative Negative 06/04/2019 [facility] 4:[address] [facility]OSPITAL Specimen Anatomical Collection Method / Collection Time Recei niranjan Time (Source) Location / Volume Laterality Blood Venipuncture / 06/04/2019 10:[address] BAILIFF 10:[address] [facility]AILIFF Narrative [facility] - 06/04/2019 4:31 PM T This test was developed and the performance characteristics were determined by [facility]. It has not been cleared or approved by shekhar huber U.S. Food and Drug Administration. The FDA farooq s determined that such clearance or approv al is not necessary. Dean Chi MD LAB_1 Performing Organization Address City/State/ZIP Code Phon e Number [facility] [address] [place] [address] ELCP - Electrophoresis [place] To DEWEY,Serum (06/04/2019 10:[address] BAILIFF) Component Value Ref Test Analysis Performed At [facility] gist Range Method Time Signature Total Protein 7.8 6.4 - 06/05/2019 [facility] 8.3 11:11 AM CENTRAL LAB g/dL COURT [facility]AIL[facility] Albumin 4.7 3.4 - 06/05/[address] [facility] 4.8 11:11 AM CENTRAL LAB g/dL COURT [facility] Alpha 1 0.3 0.2 - 06/05/2019 [facility] 0.5 11:11 AM CENTRAL LAB g/dL COURT [facility] Alpha 2 0.7 0.5 - 06/05/[address] [facility] 1.1 11:11 AM CENTRAL LAB g/dL COURT [facility]AIL[facility] Beta 1.0 0.6 - 06/05/[address] [facility] 1.1 11:11 AM CENTRAL LAB g/dL COURT [facility] Gamma 1.1 0.7 - 06/05/2019 [facility] 1.6 11:11 AM CENTRAL LAB g/dL COURT [facility] Monoclonal Laurent 0.0 <=0.0 06/05/2019 [facility] g/dL 11:[address] [facility]AIL[facility] Interpretation No monoclonal 06/05/2019 [facility] protein is 11:11 AM CENTRAL LAB detected in the COURT BAILIFF serum. Additional Not indicated. 06/05/2019 [facility] Testing 11:[address] [facility] Signed Out By [facility] 06/05/2019 [facility] Central 11:11 [address] C[address]TRAL LAB Laboratory [address] BAILIFF Specimen Anatomical Collection Method / Collection Time Recei niranjan Time (Source) Location / Volume Laterality Blood Venipuncture / 06/04/2019 10:[address] BAILIFF 10:[address] BAILIFF Dean Chi MD LAB_1 Performing Organization Address City/[facility]/ZIP Code Phon e Number [facility] CENTRAL LAB [address] [address] ESR - Sedimentation Rate (06/04/2019 10:[address] [facility]AILIFF) [facility] Method Time Signature Sedimentation Rate 14 0 - 15 06/04/[address] [facility] mm/hr 12:[address] [facility]AILIFF [address] LABORATORY Specimen Anatomical Collection Method / Collection Time Recei niranjan Time (Source) Location / Volume Laterality Blood Venipuncture / 06/04/2019 10:[address] BAILIFF 10:[address] BAILIFF Dean Chi MD LAB_1 Performing Organization Address City/[facility]/ZIP Code Phon e Number [facility] [address] [place], [place] [address] [address] CRP - C Reactive Protein (06/04/2019 10:[address] BAILIFF) P athologist Signature C-Reactive <0.5 0.0 - 0.7 06/04/2019 [facility] Protein mg/dL 11:[address] BAILIFF [address] LABORATORY Specimen Anatomical Collection Method / Collection Time Recei niranjan Time (Source) Location / Volume Laterality Blood Venipuncture / 06/04/2019 10:[address] BAILIFF 10:[address] BAILIFF Dean Chi MD LAB_1 Performing Organization Address [facility]/ZIP [facility] Phon e Number [facility] [address] [place], [place] [address] [address] (ABNORMAL) URIC - Uric Acid (06/04/2019 10:[address] BAILIFF) P athologist Signature Uric Acid 8.6 (H) 3.5 - 7.2 06/04/2019 [facility] mg/dL 11:[address] BAILIFF [address] LABORATORY Specimen Anatomical Collection Method / Collection Time Recei niranjan Time (Source) Location / Volume Laterality Blood Venipuncture / 06/04/2019 10:[address] BAILIFF 10:[address] BAILIFF Dean Chi MD LAB_1 Performing Organization Address [facility] Phon e Number [facility] [address] [place], [place] [address] [address] XR Foot/Feet Arthritis (06/04/2019 10:[address] BAILIFF) Anatomical Region Laterality Modality Lower Extremity, Foot Digital Radiograph y Specimen (Source) Anatomical Collection Method Collection Time Re ceived Time Location / / Volume Laterality 06/04/2019 10:[address] [facility]AILIFF Impressions 06/04/2019 11:[address] BAILIFF COMPARISON: ??None. FINDINGS: ??AP arthritis series of [...] MCDERMOTT XR Hand(s) Arthritis (06/04/2019 10:[address] BAILIFF) Anatomical Region Laterality Modality Upper Extremity, Hand Digital Radiograph y Specimen (Source) Anatomical Collection Method Collection Time Re ceived Time Location / / Volume Laterality 06/04/2019 10:[address] [facility]AIL[facility] Impressions 06/04/2019 11:[address] [facility]AILIFF COMPARISON: ??None. FINDINGS: ??PA bilateral arthritis serie [...] syndrome documented in this encounter Care Teams Jewelry Store Manager Relationship Specialty Start Date End Date Silvestre Cortez MD PCP - General 05/21/191999 [place] [address] documented as of this encounter
--- OUTSIDE RECORDS SUMMARY | 2022-06-21 10:56 | XMS_ITS | Encounter Summary ---
:1975 Author Organization [email or web address] Address [address] [place] [address] Care Team Providers Name Role Phone Silvestre Cortez MD Primary Care Provider Reason for Visit Reason Onset Date Comments Refill Refill 10/08/2019 Encounter Details Date Type Department Care Team Description 10/03/[address] [facility] [address] Dean Chi MD Refill; Refill Rheumatology [address] [place] [address] [place], [place] [address] [phone] Social History Tobacco Use Types Packs/Day Years Used Date Smoking Tobacco: Never Sex Assigned at Date Recorded Not on file documented as of this encounter Progress Notes Dean Chi MD - 10/08/2019 4:19 PM CDT Addended by: DEAN CHI on: 10/08/2019 04:19 PM Modules accepted: Orders Evie Roman LPN - 10/08/2019 12:36 PM CDT Addended by: EVIE ROMAN on: 10/08/2019 12:36 PM Modules accepted: Orders documented in this encounter Nursing Notes Dean Chi MD - 10/08/2019 4:18 PM CDT New prescription form Cymbalta 60 mg daily was sent to the pharmacy. Evie Roman LPN - 10/08/2019 12:35 PM CDT Patient states he takes 60mg daily. If so needs a new prescription. Vanesa Pickett RN - 10/03/2019 12:05 PM CDT Duplicate error - patient has refills available documented in this encounter Plan of Treatment Not on filedocumented as of this encounter Visit Diagnoses Diagnosis Chronic pain syndrome Inflammatory arthritis Unspecified inflammatory polyarthropathy Primary osteoarthritis involving multipl e joints documented in this encounter Care Teams Field Reporter Relationship Specialty Start Date End Date Silvestre Cortez MD PCP - General 05/21/191999 [place] [address] documented as of this encounter
--- OUTSIDE RECORDS SUMMARY | 2022-06-21 10:56 | XMS_ITS | Encounter Summary ---
:1975 Author Organization [employer] [facility] [employer] Address [address] [place] [address] Care Team Providers Name Role Phone Silvestre Cortez MD Primary Care Provider Reason for Visit Reason Comments Medication Questions Medication Side Effects Encounter Details Date Type Department Care Team Description 07/29/2019 Telephone [facility] [address] Dean Chi MD Medication Questions; Rheumatology [address] [place] Medication Side [address] [place] [phone] Social History Tobacco Use Types Packs/Day Years Used Date Smoking Tobacco: Never Sex Assigned at Date Recorded Not on file documented as of this encounter Nursing Notes Samira Rubio LPN - 07/29/2019 3:30 PM CST Called patient back and they verbalized an understanding. They were encouraged to call back with anyfuture questions or concerns. PT will keep his sep 13 appt with you. AR SUPERVISOR Dean Chi MD - 07/29/2019 3:13 PM CST Recommend trying methotrexate. Recommend methotrexate 4 tablets once a week for the 1st 2 weeks then increase to 8 tablets once a week thereafter accompanied by folic acid daily. Recommend blood work in 1 month and every 2-3 months thereafter. Will send the prescription to the pharmacy. Discontinue sulfasalazine at this time. AR SUPERVISOR Samira Rubio LPN - 07/29/2019 1:06 PM [...] he can try? Please advise. Pharmacy verified. AR SUPERVISOR documented in this encounter Plan of Treatment Not on filedocumented as of this encounter Visit Diagnoses Diagnosis Inflammatory arthritis - Primary Unspecified inflammatory polyarthropathy documented in this encounter Care Teams Investor Relations Associate Relationship Specialty Start Date End Date Silvestre Cortez MD PCP - General 05/21/191999 [place] [address] documented as of this encounter
--- OUTSIDE RECORDS SUMMARY | 2022-06-21 10:56 | XMS_ITS | Encounter Summary ---
:1975 Author Organization [facility] Address [address] [place] [address] Care Team Providers Name Role Phone Silvestre Cortez MD Primary Care Provider Reason for Referral Consult/Transfer Care (Routine) - Closed Specialty Diagnoses / Procedures Referred By Contact Refer red To Contact Diagnoses Chronic pain syndrome Dean Chi MD [address] [place], [place] [address] Referral ID Status Reason Start Date Expiration Date Visits Requ ested Visits Authorized [id number] Closed 09/13/2019 03/11/2020 1 1 Scheduling Instructions [...] Chronic pain syndrome Dean Chi MD P3800 [facility] [address] [place] [place] [address] Fax: Referral ID Status Reason Start Date Expiration Date Visits Requ ested Visits Authorized [id number] Closed 09/13/2019 11/12/2019 1 1 Scheduling Instructions Your provider has recommended an appoint ment with [facility] [address]. You may call [phone] to schedule [facility] appointment. If you do not schedule an appointment within the next 1 to 3 busin ess days, we will call you to help arrange your appointment. We suggest you call [facility] health insurance company about your coverage and benefits for this appointme nt. TIVE STRATEGIST Reason for Visit Reason Comments Follow-up Encounter Details Date Type Department Care Team Description 09/13/2019 Office Visit [facility] 3800 Dean Chi MD Inflammatory arthritis (Primary Dx); Rheumatology [address] Chronic pain syndrome; [address] Primary osteoarthritis involving [place] [address] [phone] Social History Tobacco Use Types Packs/Day Years Used Date Smoking Tobacco: Never Sex Assigned at Date Recorded Not on file documented as of this encounter Last Filed Vital Signs Vital Sign Reading Time Taken Comments Blood Pressure 141/85 09/13/2019 10:28 AM CREATIVE STRATEGIST Pulse - - Temperature 36.7 ??C (98 ??F) 09/13/2019 10:28 AM CREATIVE STRATEGIST Respiratory Rate - - Oxygen Saturation - [...] PCP. Recommend lifestyle renewal program here at [facility]. Will give referral to Pain Clinic. Recommend [...] in helping patients better manage chronic pain. Tmd-plrcjhyjor-nshas treatments An exercise program is an essential [...] pool. Many community pools such as the [employer] offer ???fibrocize?? water aerobics programs. A very [...] also help reduce stress. Occupational therapists at [facility] offer a program called the Lifestyle renewal program (see information on last page), where you can learn these techniques, and the majority of patients report that this is helpful. Pain psychologists at [facility] are another helpful resource. Cathy Aguirre, PhD, Nat Centeno M.Ed, LP, Psychologist at [facility] [Chronic pain (headaches, fibromyalgia, etc.) and irritable bowel syndrome - evaluation and treatment], and Amrti Martinez, Ph.D., LP, Psychologist at [facility]-CREPE MACHINE OPERATOR (Chronic pain evaluation). Patients may schedule appointments [...] strengthening can help in someinstances, as can youth care specialist. Warm water pool physical therapy at places like the [facility] and [facility] can be prescribed by your physician, if [...] trigger points can be injected by your Kennel Staff Member or other providers with a mixture of [...] internal organs. Resources ??? National Fibromyalgia Association [phone] www.fmaware.org ??? National [place] of Arthritis and Musculoskeletal and Skin Diseases [phone] www.niams.nih.gov ??? National Center for Complementary and Alternative Medicine [phone] www.[facility].nih.gov ??? [facility] (Water aerobics, heated pool to 91 degrees) [address] [place] [address]; charges apply. What else can be tried? Sometimes, for a minority of patients, the above interventions do not result in control of fibromyalgia. In these cases, you should consider a chronic pain program. Several of these and additional resources are listed below: [facility]), a nursing practice for fibromyalgia patients, has opened at [address] [place] [address], to serve [facility]. Yesenia Friedman RN, PATIENT CARE TECHNICIAN INSTRUCTOR and Lu Soto MS, RN, are the founders and co-owners. [phone] [facility]: may offer biofeedback, physical therapy, warm water pool, chronic pain rehabilitation programs; www.[email or web address].org ??? [facility] [place] [phone] [place] [address] Chronic pain rehab program: [email or web address] ??? [facility] [phone] [place] [address] ??? [facility] [place] [phone] [address] [place] [address] ??? [facility] [place] [phone] [address] [place] [address] Aquatic therapy, Denisse Wong [phone] [facility], http://www.st. [email or web address] jennings hospitalActive International/, [address] [address], . Medical [facility] ([facility]) , [address] [place] [address]; Other locations including [place]. [facility] [phone] [facility]9 [facility], 12th [place] [address] [facility] Dr[address] Krzysztof Cates Will [address] [facility] [address] [email or web address]/ [facility] - they focus more on back pain, but offer cognitive behavioral therapy. [place]i [place] [phone] [facility] [phone] [address] www.[email or web address].[email or web address] (mainly physical and occupational therapy) [facility] (biofeedback, acupuncture, nutrition): [phone] [facility] [phone], [address] [facility] [address] [address] Julito George MD [phone], mapping specialist [address] or [facility]5 [facility], [place] [address] [phone] [facility] (will treat fibromyalgia and chronic pain syndrome in additionto head & neck disorders; also have MedX equipment for chronic back pain). www.[email or web address].com ??? [place]: [address] [facility], [address], [address]; [phone] ??? [place]: [address] [facility], [address], [address]; [phone] ??? [place]: [address], [address]; [phone] ??? [place]: [address] [facility] [address], [address]; [phone] Lifestyle Renewal Program - At [facility] The LifeStyle Renewal Program is an integrated [...] symptoms and improve quality of life. Location: [place] Providers: Occupational Therapists with specialty training. Program: [...] Increase understanding - provide education 4. Use pihl-zxhr-uyckyw therapies to reframe pain/symptom experience 5. Modify behaviors to improve function 6. Relieve stress 7. Set up support systems 8. Increase physical activity 9. Improve sleep Education is provided in the areas of pacing, exercise, relaxation, sleep hygiene, body mechanics, postural awareness, ergonomics, Qigong, Healing Touch, problem solving and adaptive equipment. How to Contact: General information/scheduling TIVE STRATEGIST documented in this encounter Progress Notes Dean [...] today's visit was reviewed, sent to [facility], and is as noted above and/or notable [...] B27. His previous rheumatologic workup done at [facility] showed negative RF and CCP, negative LOVE. [...] PCP. Recommend lifestyle renewal program here at [facility]. Will give referral to Pain Clinic. Cannot [...] the time on treatment. Dean Chi. Rheumatology [facility] 09/13/2019 This note consists of symbols derived from keyboarding, and voice recognition software. As a result,wrong word or 'lyhex-h-pwcj' substitutions may have occurred due to the inherent limitations of voice recognition software. There may be errors in the script that have gone undetected. Please consider this when interpreting information found in this chart. TIVE STRATEGIST documented in this encounter Plan of Treatment [...] joints documented in this encounter Care Teams Client Success Director Relationship Specialty Start Date End Date Silvestre Cortez MD PCP - General 05/21/191999 [place] [address] documented as of this encounter
--- OUTSIDE RECORDS SUMMARY | 2022-06-21 10:56 | XMS_ITS | Encounter Summary ---
:1975 Author Organization [employer] [facility] Address [address], [place] [address] Care Team Providers Name Role Phone Silvestre Cortez MD Primary Care Provider Reason for Visit Procedure/Equipment (Routine) - Incomplete Specialty Diagnoses / Procedures Referred By Contact Refer red To Contact Diagnoses Inflammatory arthritis Primary osteoarthritis involving multiple joints Chronic pain syndrome Dean Chi MD Procedures XR Hand(s) Arthritis [address] [place], [place] [address] Referral ID Status Reason Start Date Expiration Date Visits V isits Requested Authorized [id number] Incomplete 06/04/2019 09/02/2020 1 1 Encounter Details Date Type Department Care Team Description 06/04/2019 Ancillary [facility] 3800 Daen Chi MD Inflammatory arthritis; Procedure Radiology [address] Primary osteoarthritis invol ving multiple joints; [address] [facility] [place] [address] [place] [address] [phone] Social History Tobacco Use Types Packs/Day Years Used Date Smoking Tobacco: Never Sex Assigned at Date Recorded Not on file documented as of this encounter Progress Notes Dean Chi MD - 06/04/2019 10:40 AM CST X-ray of the hand is unremarkable. No signs of joint erosions. OR JAVA SOFTWARE DEVELOPER documented in this encounter Plan of Treatment Not on filedocumented as of this encounter Procedures Procedure Name Priority Date/Time Associated Diagnosis Comme nts XR HANDS 1 VIEW Routine 06/04/2019 10:42 Inflammatory ar thritis Results for this BILAT ARTHRITIS AM SENIOR JAVA SOFTWARE DEVELOPER Primary osteoarthritis pr ocedure are in involving multiple the resul ts joints section. Chronic pain syndrome documented in this encounter Results XR Hand(s) Arthritis (06/04/2019 10:42 AM SENIOR JAVA SOFTWARE DEVELOPER) Anatomical Region Laterality Modality Upper Extremity, Hand Digital Radiograph y Specimen (Source) Anatomical Collection Method Collection Time Re ceived Time Location / / Volume Laterality 06/04/2019 10:22 AM SENIOR JAVA SOFTWARE DEVELOPER Impressions 06/04/2019 11:54 AM SENIOR JAVA SOFTWARE DEVELOPER COMPARISON: ??None. FINDINGS: ??PA bilateral arthritis serie [...] syndrome documented in this encounter Care Teams 2 Year Olds Preschool Teacher Relationship Specialty Start Date End Date Silvestre Cortez MD PCP - General 05/21/191999 [place] [address] documented as of this encounter
[2022-06-21 14:10] LABS: Chloride* 104 mmol/L (96-114); Sodium* 138 mmol/L (135-149)
[2022-06-21 14:11] LABS: Potassium* 4.4 mmol/L (3.6-5.1)
[2022-06-21 14:13] LABS: Blood Urea Nitrogen* 12 mg/dL (5-24); Carbon Dioxide* 22 mmol/L (20-32); Cholesterol* 126 mg/dL (90-199); Creatinine* 0.8 mg/dL (0.5-1.5); Estimated Glomerular Filt Rate 111 ml/min; Glucose* 152 mg/dL (60-115)
[2022-06-21 14:14] LABS: HDL Cholesterol* 23 mg/dL (>=40); LDL Cholesterol Calculated 41 mg/dL (<100); Triglycerides* 312 mg/dL (40-149)
== END 2022-06-21 10:47 | disposition home or self-care (01) ==
PROVIDERS: PCP Family Medicine; Visit Provider Family Medicine
DX: Z01.818 Encounter for other preprocedural examination (principal); E78.5 Hyperlipidemia, unspecified; I10 Essential (primary) hypertension
CPT/HCPCS: 80048; 80061

== ENCOUNTER 2022-07-18 18:01 | Inpatient (IN) | payer BC, SELFPAY ==
[2022-07-18] VITALS (11 sets, daily range): BP systolic 110–128; BP diastolic 76–86; PULSE 92–115; RESP 12; TEMP 35.6; O2SAT 93–96; BMI 31.7
--- NOTE | 2022-07-18 18:24 | ED.ABDPAIN ---
HPI - Abdominal Pain General Time Seen by Provider: 18:24 Date Seen: 07/18/22 Chief Complaint: Abdominal Pain Stated Complaint: Bowel obstruction Time Seen by Provider: 07/18/22 18:24 Source: patient, RN notes reviewed and old records reviewed Mode of arrival: ambulatory Limitations: no limitations Related Data Home Medications Medication Instructions Recorded Confirmed Medical Cannabis PO .HS 01/18/22 06/21/22 atorvastatin 20 mg tablet 20 mg PO HS 01/18/22 06/21/22 bupropion HCl 100 mg tablet,12 hr 100 mg PO DAILY 01/18/22 06/21/22 sustained-release cyclobenzaprine 5 mg tablet 5 mg PO BID PRN 01/18/22 06/21/22 methocarbamol 500 mg tablet 750 mg PO QID 01/18/22 06/21/22 omeprazole 40 mg capsule,delayed 40 mg PO DAILY 01/18/22 06/21/22 release trazodone 50 mg tablet 50 mg PO HS 01/18/22 06/21/22 Previous Rx's Medication Instructions Recorded pregabalin 100 mg capsule 100 mg PO BID #60 caps 02/16/22 metoprolol succinate 25 mg 25 mg PO BID #180 tabs 03/15/22 tablet,extended release 24 hr acetaminophen 325 mg tablet 650 mg PO Q6H PRN 14 days #100 tabs 03/22/22 ondansetron 4 mg disintegrating 4 mg PO Q6H PRN nausea and 03/22/22 tablet vomiting #10 tabs oxycodone 5 mg tablet 5 mg PO Q8H PRN pain #14 tabs 03/22/22 vancomycin 125 mg capsule 125 mg PO QID #40 caps 03/22/22 eszopiclone 3 mg tablet 3 mg PO HS PRN insomnia #30 tabs 04/19/22 glipizide 10 mg tablet, extended 10 mg PO DAILY #90 tabs 04/19/22 release 24 hr lorazepam 0.5 mg tablet 0.5 mg PO BID PRN anxiety #60 tabs 04/19/22 gemfibrozil 600 mg tablet 600 mg PO BID #60 tabs 06/30/22 sitagliptin phosphate 100 mg tablet 100 mg PO DAILY #30 tabs 07/12/22 Allergies Allergy/AdvReac Type Severity Reaction Status Date / Time No Known Allergies Allergy Verified 06/21/22 10:21 PFSH PFSH Surgical History History of toe surgery Status post arthroscopy of left shoulder Status post repair of ventral hernia Status post right foot surgery Status post small bowel resection Status post vasectomy Family History Other Diabetes Leukemia Prostate cancer Rheumatoid arthritis Social History Narrative: 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 He does not smoke. Rarely drinks alcohol. Highest level of school completed/degree received: some college, no degree Smoking Status: Never smoker Do you use any of these nicotine containing products: None Second hand tobacco smoke exposure: No How often do you have a drink containing alcohol: 2-4 times a month Alcohol type: beer How often do you have six or more drinks on one occasion: Never AUDIT-C Alcohol total score: 2 Non-prescribed substance use: denies use Caffeine: Yes (4 cups per day) service: No Exam Const: Vital Signs, click to edit/add: Vital Signs - 24 hr 07/18/22 18:15 Temperature 96.1 F L Pulse Rate [Pulse Oximeter] 115 H Respiratory Rate 12 Blood Pressure [Ri ght Upper Arm] 128/80 Pulse Oximetry 96 Oxygen Delivery Me thod Room Air Course Vital Signs Vital signs: Initial Vital Signs Temperature 96.1 F L 07/18/22 18:15 Temperature Source Temporal Artery Scan 07/18/22 18:15 Pulse Rate 115 H 07/18/22 18:15 Pulse Rhythm 07/18/22 18:15 Respiratory Rate 12 07/18/22 18:15 Blood Pressure 128/80 07/18/22 18:15 Blood Pressure Mean 96 07/18/22 18:15 Blood Pressure Position Sitting 07/18/22 18:15 Pulse Oximetry 96 07/18/22 18:15 Oxygen Delivery Method 07/18/22 18:15 Vital Signs Temperature 96.1 F L 07/18/22 18:15 Pulse Rate 115 H 07/18/22 18:15 Respiratory Rate 12 07/18/22 18:15 Blood Pressure 128/80 07/18/22 18:15 Pulse Oximetry 96 07/18/22 18:15 Oxygen Delivery Method 07/18/22 18:15 Temperature 96.1 F L 07/18/22 18:15 Pulse Rate 115 H 07/18/22 18:15 Respiratory Rate 12 07/18/22 18:15 Blood Pressure 128/80 07/18/22 18:15 Pulse Oximetry 96 07/18/22 18:15 Oxygen Delivery Method 07/18/22 18:15 Discharge Plan Discharge Prescriptions: No Action cyclobenzaprine 5 mg tablet 5 mg PO BID PRN atorvastatin 20 mg tablet 20 mg PO HS omeprazole 40 mg capsule,delayed release(DR/EC) 40 mg PO DAILY Medical Cannabis PO .HS methocarbamol 500 mg tablet 750 mg PO QID trazodone 50 mg tablet 50 mg PO HS bupropion HCl 100 mg tablet sustained-release 12 hr 100 mg PO DAILY acetaminophen 325 mg Tablet 650 mg PO Q6H PRN14 Days Qty: 100 0RF vancomycin 125 mg Capsule 125 mg PO QID Qty: 40 0RF ondansetron 4 mg tablet,disintegrating 4 mg PO Q6H PRN (Reason: nausea and vomiting) Qty: 10 1RF oxycodone 5 mg tablet 5 mg PO Q8H PRN (Reason: pain) Qty: 14 0RF pregabalin 100 mg capsule 100 mg PO BID Qty: 60 5RF metoprolol succinate 25 mg tablet extended release 24 hr 25 mg PO BID Qty: 180 3RF glipizide 10 mg tablet extended release 24hr 10 mg PO DAILY Qty: 90 3RF lorazepam 0.5 mg tablet 0.5 mg PO BID PRN (Reason: anxiety) Qty: 60 1RF eszopiclone 3 mg tablet 3 mg PO HS PRN (Reason: insomnia) Qty: 30 2RF gemfibrozil 600 mg tablet 600 mg PO BID Qty: 60 10RF sitagliptin phosphate 100 mg tablet 100 mg PO DAILY Qty: 30 11RF Follow Up/Referrals: Mark Gallegos MD [Primary Care Provider] -
--- NOTE | 2022-07-18 18:37 | CRLHL7_ITS ---
For Patients: As a result of the Century Cures Act, medical imaging exams and procedure reports are released immediately into your electronic medical record. You may view this report before your referring provider. If you have questions, please contact your health care provider. INDICATION: Abdominal pain, history of small-bowel obstruction. COMPARISON: March 19, 2022. TECHNIQUE: CT of the abdomen and pelvis with Isovue-370, 118 cc IV. FINDINGS: Multiple calcified pulmonary nodules. No pericardial effusion. Normal heart size. Distal esophagus is unremarkable. Normal liver size and contour. Severe hepatic steatosis. No suspicious hepatic lesions. The hepatic and portal veins appear patent. Normal gallbladder. No biliary dilatation. The adrenal glands, kidneys, pancreas and duodenum appear normal. Ingested contents within the stomach. Multiple splenic calcifications. Normal course and caliber of the abdominal aorta and the IVC. The aortic side branches and renal vessels appear patent. No lymphadenopathy. Bladder is decompressed. Prostate is unremarkable. The colon is decompressed. There are multiple loops of dilated small bowel throughout the abdomen and pelvis with a transition point at the bowel anastomosis in the right lower quadrant (series 2 image 104). Bowel enhances normally. No evidence of pneumatosis. No evidence of portal venous gas. No significant free fluid. No abscess. No acute osseous abnormality. IMPRESSION: Recurrent high-grade small-bowel obstruction with transition point at the bowel anastomosis in the right lower quadrant. Please note that all CT scans at this facility use dose modulation, iterative reconstruction, and/or weight-based dosing when appropriate to reduce radiation dose to as low as reasonably achievable. Dictated by Otoniel Carbajal MD @ 07/18/2022 8:32:07 PM (Electronically Signed)
--- NOTE | 2022-07-18 18:40 | ED.ABDPAIN ---
HPI - Abdominal Pain General Chief Complaint: Abdominal Pain Stated Complaint: Bowel obstruction Time Seen by Provider: 07/18/22 18:24 History of Present Illness HPI narrative: This 46-year-old male comes in with abdominal pain, nausea, and vomiting that began last evening. He states that he has had part of his bowel resected because of recurrent problems. He has had bowel obstructions and feels that he is having another 1 at this time. He states that he has not had any bowel movement or passed any gas. He does not report any fevers. Related Data Home Medications Medication Instructions Recorded Confirmed Medical Cannabis PO .HS 01/18/22 06/21/22 atorvastatin 20 mg tablet 20 mg PO HS 01/18/22 06/21/22 bupropion HCl 100 mg tablet,12 hr 100 mg PO DAILY 01/18/22 06/21/22 sustained-release cyclobenzaprine 5 mg tablet 5 mg PO BID PRN 01/18/22 06/21/22 methocarbamol 500 mg tablet 750 mg PO QID 01/18/22 06/21/22 omeprazole 40 mg capsule,delayed 40 mg PO DAILY 01/18/22 06/21/22 release trazodone 50 mg tablet 50 mg PO HS 01/18/22 06/21/22 Previous Rx's Medication Instructions Recorded pregabalin 100 mg capsule 100 mg PO BID #60 caps 02/16/22 metoprolol succinate 25 mg 25 mg PO BID #180 tabs 03/15/22 tablet,extended release 24 hr acetaminophen 325 mg tablet 650 mg PO Q6H PRN 14 days #100 tabs 03/22/22 ondansetron 4 mg disintegrating 4 mg PO Q6H PRN nausea and 03/22/22 tablet vomiting #10 tabs oxycodone 5 mg tablet 5 mg PO Q8H PRN pain #14 tabs 03/22/22 vancomycin 125 mg capsule 125 mg PO QID #40 caps 03/22/22 eszopiclone 3 mg tablet 3 mg PO HS PRN insomnia #30 tabs 04/19/22 glipizide 10 mg tablet, extended 10 mg PO DAILY #90 tabs 04/19/22 release 24 hr lorazepam 0.5 mg tablet 0.5 mg PO BID PRN anxiety #60 tabs 04/19/22 gemfibrozil 600 mg tablet 600 mg PO BID #60 tabs 06/30/22 sitagliptin phosphate 100 mg tablet 100 mg PO DAILY #30 tabs 07/12/22 Allergies Allergy/AdvReac Type Severity Reaction Status Date / Time No Known Allergies Allergy Verified 06/21/22 10:21 Review of Systems Status of ROS Reports: 10 or more systems reviewed and unremarkable except as noted in History and below Narrative Constitutional: No fevers, no weight gain or loss. Eyes: No discharge. No vision changes. HENT: No congestion, no sore throat, no ear pain. Cardiovascular: No chest pain, no palpitations. Respiratory: No shortness of breath, no wheezes, no cough. Gastrointestinal: Diffuse abdominal pain with nausea and vomiting. No diarrhea. Genitourinary: No dysuria, no hematuria. Musculoskeletal: Normal range of motion. Skin: No rashes, no pruritis. Neurological: No dizziness, weakness, sensory change, speech change. Endo/Heme/Allergies: No bruising or bleeding. No polydipsia. Pysch: no suicidality, no anxiety, no insomnia. All other systems reviewed and are negative. 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 He does not smoke. Rarely drinks alcohol. Highest level of school completed/degree received: some college, no degree Smoking Status: Never smoker Do you use any of these nicotine containing products: None Second hand tobacco smoke exposure: No How often do you have a drink containing alcohol: 2-4 times a month Alcohol type: beer How often do you have six or more drinks on one occasion: Never AUDIT-C Alcohol total score: 2 Non-prescribed substance use: denies use Caffeine: Yes (4 cups per day) service: No Exam Narrative: Exam Narrative: Constitutional: Well-developed, well-nourished, no acute distress. HEENT: Normocephalic, atraumatic. Neck: Normal range of motion. Nontender. Supple. Heart: Regular. No murmurs. Normal rate. Intact distal pulses. Lungs: Clear to auscultation. No chest discomfort. No wheezes, rhonchi, or rales. Abdomen: Normal bowel sounds. Diffuse tenderness. No rebound tenderness. Genitalia: Deferred. Back: No midline tenderness. Normal range of motion. Extremities: Normal range of motion. No injury. Skin: Intact. No rash. Warm. No erythema or pallor. Neurologic: No altered sensation. No weakness. Alert and oriented. Psychiatric: No suicidality. No anxiety or depression. No insomnia. Nursing notes and vitals signs are reviewed. Const: Vital Signs, click to edit/add: Vital Signs - 24 hr 07/18/22 18:15 Temperature 96.1 F L Pulse Rate [Pulse Oximeter] 115 H Respiratory Rate 12 Blood Pressure [Ri ght Upper Arm] 128/80 Pulse Oximetry 96 Oxygen Delivery Me thod Room Air Course Vital Signs Vital signs: Initial Vital Signs Temperature 96.1 F L 07/18/22 18:15 Temperature Source Temporal Artery Scan 07/18/22 18:15 Pulse Rate 115 H 07/18/22 18:15 Pulse Rhythm 07/18/22 18:15 Respiratory Rate 12 07/18/22 18:15 Blood Pressure 128/80 07/18/22 18:15 Blood Pressure Mean 96 07/18/22 18:15 Blood Pressure Position Sitting 07/18/22 18:15 Pulse Oximetry 96 07/18/22 18:15 Oxygen Delivery Method 07/18/22 18:15 Vital Signs Temperature 96.1 F L 07/18/22 18:15 Pulse Rate 115 H 07/18/22 18:15 Respiratory Rate 12 07/18/22 18:15 Blood Pressure 128/80 07/18/22 18:15 Pulse Oximetry 96 07/18/22 18:15 Oxygen Delivery Method 07/18/22 18:15 Temperature 96.1 F L 07/18/22 18:15 Pulse Rate 115 H 07/18/22 18:15 Respiratory Rate 12 07/18/22 18:15 Blood Pressure 128/80 07/18/22 18:15 Pulse Oximetry 96 07/18/22 18:15 Oxygen Delivery Method 07/18/22 18:15 MDM - Abdominal Pain MDM Narrative Medical decision making narrative: This patient comes in with abdominal pain and nausea with vomiting and states that he thinks he has a another bowel obstruction. An IV was established where he received a L of normal saline and a couple doses of Dilaudid 0.5 mg. He also received Zofran 4 mg intravenously. This is providing sufficient relief of his symptoms. CT imaging of the abdomen and pelvis does show a bowel obstruction. I called the hospitalist on-call here who indicated that there are no beds available here. Attempt was made to transfer this patient but no beds were available at [facility], [facility], [facility], and all the [facility]. So the patient is boarding here. I did leave a message with the surgeon on-call, Dr. Albarran, in this regard and updated her about his boarding status. Lab Data Labs: Lab Results 07/18/22 07/18/22 07/18/22 Range/Units 18:48 18:48 18:48 WBC 5.67 (4.50-11.00) K/uL RBC 5.78 (4.30-5.90) m/uL Hgb 17.6 H (13.5-17.5) gm/dL Hct 52.5 (37.0-53.0) % MCV 91 (80-100) fL MCH 30 (26-34) pg MCHC 34 (32-36) gm/dL RDW Coeff of Tiffanie 13.7 (11.5-15.5) % Plt Count 240 (140-440) K/uL Neut % (Auto) 78.9 H (42.0-72.0) % Lymph % (Auto) 14.6 L (20-44) % Dolores % (Auto) 5.8 (0.0-11.0) % Eos % (Auto) 0.5 (0.0-7.0) % Baso % (Auto) 0.2 (0.0-3.0) % Neut # (Auto) 4.50 (1.7-7.0) K/uL Lymph # (Auto) 0.80 L (0.90-2.90) K/uL Dolores # (Auto) 0.30 (0.00-0.90) K/UL Eos # (Auto) 0.03 (0.00-0.50) K/uL Baso # (Auto) 0.01 (0.00-0.30) K/uL Sodium 141 (135-149) mmol/L Potassium 5.8 H (3.6-5.1) mmol/L Chloride 101 (96-114) mmol/L Carbon Dioxide 21 (20-32) mmol/L BUN 22 (5-24) mg/dL Creatinine 1.2 (0.5-1.5) mg/dL Estimated Creat Clear 86.93 Estimated GFR 76 ml/min Glucose 212 H (60-115) mg/dL Calcium 10.3 (8.4-10.6) mg/dL Lipase 56 (23-300) U/L Imaging Data CT scan - abdomen: Radiologist's impression: Recurrent high-grade small-bowel obstruction with transition point at the bowel anastomosis in the right lower quadrant. Discharge Plan Discharge Clinical Impression: Bowel obstruction Prescriptions: No Action cyclobenzaprine 5 mg tablet 5 mg PO BID PRN atorvastatin 20 mg tablet 20 mg PO HS omeprazole 40 mg capsule,delayed release(DR/EC) 40 mg PO DAILY Medical Cannabis PO .HS methocarbamol 500 mg tablet 750 mg PO QID trazodone 50 mg tablet 50 mg PO HS bupropion HCl 100 mg tablet sustained-release 12 hr 100 mg PO DAILY acetaminophen 325 mg Tablet 650 mg PO Q6H PRN14 Days Qty: 100 0RF vancomycin 125 mg Capsule 125 mg PO QID Qty: 40 0RF ondansetron 4 mg tablet,disintegrating 4 mg PO Q6H PRN (Reason: nausea and vomiting) Qty: 10 1RF oxycodone 5 mg tablet 5 mg PO Q8H PRN (Reason: pain) Qty: 14 0RF pregabalin 100 mg capsule 100 mg PO BID Qty: 60 5RF metoprolol succinate 25 mg tablet extended release 24 hr 25 mg PO BID Qty: 180 3RF glipizide 10 mg tablet extended release 24hr 10 mg PO DAILY Qty: 90 3RF lorazepam 0.5 mg tablet 0.5 mg PO BID PRN (Reason: anxiety) Qty: 60 1RF eszopiclone 3 mg tablet 3 mg PO HS PRN (Reason: insomnia) Qty: 30 2RF gemfibrozil 600 mg tablet 600 mg PO BID Qty: 60 10RF sitagliptin phosphate 100 mg tablet 100 mg PO DAILY Qty: 30 11RF Follow Up/Referrals: Mark Gallegos MD [Primary Care Provider] -
[2022-07-18 18:56] LABS: Basophils Absolute Auto 0.01 K/uL (0.00-0.30); Basophils Percent Auto 0.2 % (0.0-3.0); Eosinophils Absolute Auto 0.03 K/uL (0.00-0.50); Eosinophils Percent Auto 0.5 % (0.0-7.0); Hematocrit 52.5 % (37.0-53.0); Hemoglobin* 17.6 gm/dL (13.5-17.5); Lymphocytes Percent Auto 14.6 % (20-44); Mean Corpuscular HGB Conc 34 gm/dL (32-36); Mean Corpuscular Hemoglobin 30 pg (26-34); Mean Corpuscular Volume 91 fL (80-100); Monocytes Percent Auto 5.8 % (0.0-11.0); Neutrophils Percent Auto 78.9 % (42.0-72.0); Platelet Count* 240 K/uL (140-440); RDW Coefficient of Variation % 13.7 % (11.5-15.5); Red Blood Count 5.78 m/uL (4.30-5.90); White Blood Count* 5.67 K/uL (4.50-11.00)
[2022-07-18] MEDS: ONDANSETRON 2 MG/ML inj 4 MG IVP ×2 (18:56→22:35)
[2022-07-18] MEDS: HYDROmorphone 0.5 mg/0.5 ml inj IVP ×4 (18:56→23:38)
[2022-07-18 19:19] LABS: Chloride* 101 mmol/L (96-114); Potassium* 5.8 mmol/L (3.6-5.1); Sodium* 141 mmol/L (135-149)
[2022-07-18 19:22] LABS: Blood Urea Nitrogen* 22 mg/dL (5-24); Carbon Dioxide* 21 mmol/L (20-32); Creatinine* 1.2 mg/dL (0.5-1.5); Est. Creatinine Clearance* 86.93; Estimated Glomerular Filt Rate 76 ml/min; Glucose* 212 mg/dL (60-115); Lipase* 56 U/L (23-300)
[2022-07-18 19:23] LABS: Calcium* 10.3 mg/dL (8.4-10.6)
[2022-07-18 19:48] LABS: Slide Review Reflex No
[2022-07-18] MEDS: 0.9 % SODIUM CHLORIDE 1000 ml 1,000 ML 125 ML IV (22:36)
[2022-07-19] VITALS (55 sets, daily range): BP systolic 99–136; BP diastolic 67–96; PULSE 73–96; RESP 16; TEMP 36.2–36.8; O2SAT 88–97; BMI 30.6
[2022-07-19] MEDS: HYDROmorphone 0.5 mg/0.5 ml inj IVP ×9 (01:04→20:44)
[2022-07-19 02:11] LABS: PCR FLU A Negative PCR FLU A (Negative); PCR FLU B Negative PCR FLU B (Negative); PCR RSV Negative PCR RSV (Negative)
[2022-07-19 02:17] LABS: SARS PCR* Negative SARS-CoV-2 (Negative)
[2022-07-19] MEDS: ONDANSETRON 2 MG/ML inj 4 MG IVP ×3 (05:00→17:53)
--- NOTE | 2022-07-19 05:01 | ED.NURSE ---
Pt up to restroom. Given 4 mg of Zofran IV.
--- NOTE | 2022-07-19 05:26 | ED.NURSE ---
Blood sugar 159. Type 2 diabetic.
--- NOTE | 2022-07-19 06:38 | ED.NURSE ---
Pt resting comfortably in room.
[2022-07-19] MEDS: 0.9 % SODIUM CHLORIDE 1000 ml 1,000 ML 125 ML IV (07:21)
[2022-07-19 08:38] LABS: Eosinophils Percent Auto 1.9 % (0.0-7.0); Hematocrit 42.9 % (37.0-53.0); Hemoglobin* 14.3 gm/dL (13.5-17.5); Lymphocytes Percent Auto 33.8 % (20-44); Mean Corpuscular HGB Conc 33 gm/dL (32-36); Mean Corpuscular Hemoglobin 31 pg (26-34); Mean Corpuscular Volume 94 fL (80-100); Monocytes Percent Auto 10.6 % (0.0-11.0); Neutrophils Percent Auto 53.7 % (42.0-72.0); Platelet Count* 273 K/uL (140-440); Red Blood Count 4.58 m/uL (4.30-5.90); White Blood Count* 3.76 K/uL (4.50-11.00)
[2022-07-19 08:40] LABS: Slide Review Reflex No
[2022-07-19 08:50] LABS: Chloride* 107 mmol/L (96-114); Potassium* 4.3 mmol/L (3.6-5.1); Sodium* 140 mmol/L (135-149)
[2022-07-19 08:53] LABS: Blood Urea Nitrogen* 22 mg/dL (5-24); Calcium* 8.4 mg/dL (8.4-10.6); Carbon Dioxide* 23 mmol/L (20-32); Creatinine* 0.9 mg/dL (0.5-1.5); Estimated Glomerular Filt Rate 107 ml/min; Glucose* 141 mg/dL (60-115)
--- NOTE | 2022-07-19 08:53 | PC.NURSE ---
Patient transferred to med/surg room 280. Report given to HODA Henriquez. SL prior to going to floor. Patient had gone to the bathroom and urinated and had a small liquid green stool. PIV intact. On tele. VSS. All questions answered.
--- NOTE | 2022-07-19 09:40 | PM.IMHP1 ---
Hospitalist- H&P: HPI History of Present Illness Time Seen by Provider: 09:45 Date Seen: 07/19/22 Chief complaint: Bowel obstruction Narrative: This is a 46-year-old male with a complicated abdominal history who developed abdominal distension and lack of flatus 1 and half days ago, on the evening of . He had been doing fairly well up until that point out any abdominal symptoms or diarrhea. Yesterday he started vomiting and had diarrhea as well, but still no flatus. The diarrhea has since stopped, but he did have a small green stool today which is not abnormal when he gets bowel obstructions. He is not particularly nauseous at this time, but continues to have significant amounts of abdominal distension. Many years ago he had possible Crohn's ileitis, however since then he was reportedly seen at [facility] and felt that there were no diagnostic criteria for Crohn disease. He has had multiple bowel obstructions over the past 11 years. In August he was hospitalized twice at [facility] for bowel obstructions both times he received NG compression. He had another bowel obstruction in October and then again in late February for which he was hospitalized here. At that time he ended up testing positive for C diff and was treated with oral vancomycin. 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 He does not smoke. Rarely drinks alcohol. Denies recreational drug use. 5 children, ages 6-17. Highest level of school completed/degree received: some college, no degree Smoking Status: Never smoker Do you use any of these nicotine containing products: None Second hand tobacco smoke exposure: No How often do you have a drink containing alcohol: 2-4 times a month Alcohol type: beer How often do you have six or more drinks on one occasion: Never AUDIT-C Alcohol total score: 2 Non-prescribed substance use: denies use Caffeine: Yes (4 cups per day) service: No Meds Home Medications and Allergies Home Medications Medication Instructions Recorded Confirmed Type Medical Cannabis PO .HS 01/18/22 06/21/22 History atorvastatin 20 mg tablet 20 mg PO HS 01/18/22 07/19/22 History bupropion HCl 100 mg tablet,12 hr 100 mg PO DAILY 01/18/22 07/19/22 History sustained-release cyclobenzaprine 5 mg tablet 5 mg PO BID PRN 01/18/22 07/19/22 History omeprazole 40 mg capsule,delayed 40 mg PO DAILY 01/18/22 07/19/22 History release trazodone 50 mg tablet 50 mg PO HS 01/18/22 07/19/22 History oxycodone-acetaminophen 7.5 mg-325 1 tab PO Q4H PRN 07/19/22 07/19/22 History mg tablet Allergies Allergy/AdvReac Type Severity Reaction Status Date / Time No Known Allergies Allergy Verified 06/21/22 10:21 Exam Narrative: Exam Narrative: General: No acute distress. Awake alert oriented x3. HEENT: Normocephalic atraumatic, pupils equally round and reactive to light and accommodation. Oropharynx clear. Mucous membranes are dry. No cervical lymphadenopathy, thyromegaly or carotid bruits. No JVD. Cardiovascular: Regular rate and rhythm. No murmurs, gallops, or rubs. Chest: No increased work of breathing. Clear to auscultation bilaterally. No crackles or wheezes. Abdomen: Bowel sounds scattered, diminished. Distended, soft, nontender to palpation. No hepatosplenomegaly or masses. Extremities: No edema, no cyanosis or clubbing. Skin: No jaundice, no pallor, no rashes. Neuro: Grossly intact. No focal deficits. Const: Vital Signs, click to edit/add: Vital Signs - 24 hr 07/18/22 18:15 07/18/22 22:21 07/18/22 22:22 Temperature 96.1 F L Pulse Rate 94 99 Pulse Rate [Pulse Oximeter] 115 H Respiratory Rate 12 Blood Pressure 113/76 Blood Pressure [Ri ght Upper Arm] 128/80 Pulse Oximetry 96 95 95 Oxygen Delivery Me thod Room Air Room Air Oxygen Flow Rate 07/18/22 22:30 07/18/22 22:32 07/18/22 22:33 Temperature Pulse Rate 94 97 96 Pulse Rate [Pulse Oximeter] Respiratory Rate Blood Pressure 110/76 Blood Pressure [Ri ght Upper Arm] Pulse Oximetry 95 95 95 Oxygen Delivery Me thod Oxygen Flow Rate 07/18/22 23:00 07/18/22 23:02 07/18/22 23:03 Temperature Pulse Rate 97 95 97 Pulse Rate [Pulse Oximeter] Respiratory Rate Blood Pressure 119/86 Blood Pressure [Ri ght Upper Arm] Pulse Oximetry 94 93 93 Oxygen Delivery Me thod Oxygen Flow Rate 07/18/22 23:43 07/18/22 23:45 07/19/22 00:00 Temperature Pulse Rate 94 92 92 Pulse Rate [Pulse Oximeter] Respiratory Rate Blood Pressure Blood Pressure [Ri ght Upper Arm] Pulse Oximetry 93 94 91 Oxygen Delivery Me thod Oxygen Flow Rate 07/19/22 00:02 07/19/22 00:15 07/19/22 00:30 Temperature Pulse Rate 92 91 96 Pulse Rate [Pulse Oximeter] Respiratory Rate Blood Pressure 113/80 Blood Pressure [Ri ght Upper Arm] Pulse Oximetry 91 91 93 Oxygen Delivery Me thod Oxygen Flow Rate 07/19/22 00:45 07/19/22 01:00 07/19/22 01:03 Temperature Pulse Rate 94 93 91 Pulse Rate [Pulse Oximeter] Respiratory Rate Blood Pressure 114/74 Blood Pressure [Ri ght Upper Arm] Pulse Oximetry 92 92 91 Oxygen Delivery Me thod Oxygen Flow Rate 07/19/22 02:16 07/19/22 03:00 07/19/22 04:04 Temperature Pulse Rate Pulse Rate [Pulse Oximeter] 81 73 Respiratory Rate 16 Blood Pressure Blood Pressure [Ri ght Upper Arm] 128/94 H Pulse Oximetry 96 96 95 Oxygen Delivery Me thod Nasal Cannula Nasal Cannula Room Air Oxygen Flow Rate 2 2 07/19/22 05:27 07/19/22 05:27 07/19/22 05:28 Temperature Pulse Rate Pulse Rate [Pulse Oximeter] 79 Respiratory Rate 16 Blood Pressure Blood Pressure [Ri ght Upper Arm] 120/82 Pulse Oximetry 94 94 94 Oxygen Delivery Me thod Nasal Cannula Nasal Cannula Oxygen Flow Rate 2 07/19/22 06:25 07/19/22 01:04 07/19/22 01:15 Temperature Pulse Rate 94 86 Pulse Rate [Pulse Oximeter] 81 Respiratory Rate 16 Blood Pressure Blood Pressure [Ri ght Upper Arm] 116/82 Pulse Oximetry 97 92 88 Oxygen Delivery Me thod Room Air Oxygen Flow Rate 07/19/22 01:30 07/19/22 01:45 07/19/22 02:00 Temperature Pulse Rate 82 80 80 Pulse Rate [Pulse Oximeter] Respiratory Rate Blood Pressure Blood Pressure [Ri ght Upper Arm] Pulse Oximetry 93 95 94 Oxygen Delivery Me thod Oxygen Flow Rate 07/19/22 02:02 07/19/22 02:15 07/19/22 02:30 Temperature Pulse Rate 80 78 78 Pulse Rate [Pulse Oximeter] Respiratory Rate Blood Pressure 112/91 H Blood Pressure [Ri ght Upper Arm] Pulse Oximetry 94 96 96 Oxygen Delivery Me thod Oxygen Flow Rate 07/19/22 02:45 07/19/22 03:00 07/19/22 03:02 Temperature Pulse Rate 79 79 77 Pulse Rate [Pulse Oximeter] Respiratory Rate Blood Pressure 128/94 H Blood Pressure [Ri ght Upper Arm] Pulse Oximetry 95 96 96 Oxygen Delivery Me thod Oxygen Flow Rate 07/19/22 03:15 07/19/22 03:30 07/19/22 03:45 Temperature Pulse Rate 77 78 75 Pulse Rate [Pulse Oximeter] Respiratory Rate Blood Pressure Blood Pressure [Ri ght Upper Arm] Pulse Oximetry 96 96 95 Oxygen Delivery Me thod Oxygen Flow Rate 07/19/22 04:00 07/19/22 04:03 07/19/22 04:15 Temperature Pulse Rate 75 79 76 Pulse Rate [Pulse Oximeter] Respiratory Rate Blood Pressure 119/79 Blood Pressure [Ri ght Upper Arm] Pulse Oximetry 96 96 96 Oxygen Delivery Me thod Oxygen Flow Rate 07/19/22 04:30 07/19/22 04:45 07/19/22 05:09 Temperature Pulse Rate 75 77 82 Pulse Rate [Pulse Oximeter] Respiratory Rate Blood Pressure Blood Pressure [Ri ght Upper Arm] Pulse Oximetry 95 94 95 Oxygen Delivery Me thod Oxygen Flow Rate 07/19/22 05:15 07/19/22 05:22 07/19/22 05:30 Temperature Pulse Rate 82 80 80 Pulse Rate [Pulse Oximeter] Respiratory Rate Blood Pressure 120/82 Blood Pressure [Ri ght Upper Arm] Pulse Oximetry 92 94 94 Oxygen Delivery Me thod Oxygen Flow Rate 07/19/22 05:45 07/19/22 06:00 07/19/22 06:02 Temperature Pulse Rate 78 75 78 Pulse Rate [Pulse Oximeter] Respiratory Rate Blood Pressure 116/82 Blood Pressure [Ri ght Upper Arm] Pulse Oximetry 95 96 96 Oxygen Delivery Me thod Oxygen Flow Rate 07/19/22 06:15 07/19/22 06:30 07/19/22 06:45 Temperature Pulse Rate 78 79 80 Pulse Rate [Pulse Oximeter] Respiratory Rate Blood Pressure Blood Pressure [Ri ght Upper Arm] Pulse Oximetry 95 97 96 Oxygen Delivery Me thod Oxygen Flow Rate 07/19/22 07:00 07/19/22 07:02 07/19/22 07:15 Temperature Pulse Rate 86 82 81 Pulse Rate [Pulse Oximeter] Respiratory Rate Blood Pressure 136/96 H Blood Pressure [Ri ght Upper Arm] Pulse Oximetry 97 96 96 Oxygen Delivery Me thod Oxygen Flow Rate 07/19/22 07:30 07/19/22 07:45 07/19/22 08:00 Temperature Pulse Rate 90 77 77 Pulse Rate [Pulse Oximeter] Respiratory Rate Blood Pressure Blood Pressure [Ri ght Upper Arm] Pulse Oximetry 95 96 96 Oxygen Delivery Me thod Oxygen Flow Rate 07/19/22 08:02 07/19/22 08:42 07/19/22 07:00 Temperature Pulse Rate 84 89 Pulse Rate [Pulse Oximeter] 87 Respiratory Rate 16 Blood Pressure 125/80 Blood Pressure [Ri ght Upper Arm] 136/96 H Pulse Oximetry 95 92 96 Oxygen Delivery Me thod Room Air Oxygen Flow Rate Documenting provider has reviewed patient's vital signs: yes Hospitalist - H&P: Result Labs Labs: Short CBC 07/18/22 07/19/22 Range/Units 18:48 07:58 WBC 5.67 3.76 L (4.50-11.00) K/uL Hgb 17.6 H 14.3 (13.5-17.5) gm/dL Hct 52.5 42.9 (37.0-53.0) % Plt Count 240 273 (140-440) K/uL [facility] 07/18/22 07/19/22 18:48 07:58 Sodium 141 140 Potassium 5.8 H 4.3 Chloride 101 107 Carbon Dioxide 21 23 BUN 22 22 Creatinine 1.2 0.9 Glucose 212 H 141 H Calcium 10.3 8.4 Ordering Physician: Mark Ramirez M.D. Date of Service: 07/18/22 Procedure(s): CT abdomen pelvis w con Accession Number(s): [id number] cc: Mark Ramirez M.D.; Mark Gallegos M.D.~ For Patients: As a result of the Cures Act, medical imaging exams and procedure reports are released immediately into your electronic medical record. You may view this report before your referring provider. If you have questions, please contact your health care provider. INDICATION: Abdominal pain, history of small-bowel obstruction. COMPARISON: March 19, 2022. TECHNIQUE: CT of the abdomen and pelvis with Isovue-370, 118 cc IV. FINDINGS: Multiple calcified pulmonary nodules. No pericardial effusion. Normal heart size. Distal esophagus is unremarkable. Normal liver size and contour. Severe hepatic steatosis. No suspicious hepatic lesions. The hepatic and portal veins appear patent. Normal gallbladder. No biliary dilatation. The adrenal glands, kidneys, pancreas and duodenum appear normal. Ingested contents within the stomach. Multiple splenic calcifications. Normal course and caliber of the abdominal aorta and the IVC. The aortic side branches and renal vessels appear patent. No lymphadenopathy. Bladder is decompressed. Prostate is unremarkable. The colon is decompressed. There are multiple loops of dilated small bowel throughout the abdomen and pelvis with a transition point at the bowel anastomosis in the right lower quadrant (series 2 image 104). Bowel enhances normally. No evidence of pneumatosis. No evidence of portal venous gas. No significant free fluid. No abscess. No acute osseous abnormality. IMPRESSION: Recurrent high-grade small-bowel obstruction with transition point at the bowel anastomosis in the right lower quadrant. Please note that all CT scans at this facility use dose modulation, iterative reconstruction, and/or weight-based dosing when appropriate to reduce radiation dose to as low as reasonably achievable. Dictated by Otoniel Carbajal MD @ 07/18/2022 8:32:07 PM (Electronically Signed) Assessment and Plan Assessment and plan (1) Bowel obstruction: Status: Acute (2) Dehydration, mild: Status: Acute (3) Hyperkalemia: Problem comment: K 5.8 on admission, K 4.3 today. 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 CT scan showed high-grade bowel small obstruction with a transition point at the anastomosis. Patient is resistant to the idea of an NG tube. I have spoken with Dr. Luna from General surgery who will see this patient in consultation. I will check a C difficile PCR today. Start IV fluids for mild dehydration and maintenance fluids. We will use Dilaudid for pain control. Hold his usual home medications and Javier insulin sliding scale for diabetes.
[2022-07-19] MEDS: LACTATED RINGERS 1000 ML 1,000 ML IV (11:23)
--- NOTE | 2022-07-19 11:59 | P.GSCN_ITS ---
History of Present Illness Consult details Date Seen: 07/19/22 Consult date: 07/19/22 Narrative: Patient is a 46-year-old male, with a complex abdominal surgical history, who presented to the emergency department with concerns for possible obstruction. He does have a history of frequent hospitalizations associated with Crohn's disease and small-bowel obstructions. On evening he started to have distension and abdominal pain, reminiscent of his previous episodes. He tried to take a Percocet for pain control, which did not help. He is on chronic narcotics for his arthritis. That evening he had vomiting and diarrhea. Since then he has been unable to tolerate any p.o. intake without nausea. His last bowel movement and passage of gas was on Monday. He denies any fevers or chills. Since being in the hospital he does feel like his abdomen has become softer and is less painful. His last surgery was in November, an open ileocecectomy bowel which was done at [facility]. His last hospitalization was in February 2022, which was treated with bowel rest. Evidence on imaging of stricture at his ileocecal anastomosis, with recommendations for colonoscopy in evaluation. He states that this has not been done. He was also found to have c diff colitis during that hospital stay. 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 He does not smoke. Rarely drinks alcohol. Denies recreational drug use. 5 children, ages 6-17. Highest level of school completed/degree received: some college, no degree Smoking Status: Never smoker Do you use any of these nicotine containing products: None Second hand tobacco smoke exposure: No How often do you have a drink containing alcohol: 2-4 times a month Alcohol type: beer How often do you have six or more drinks on one occasion: Never AUDIT-C Alcohol total score: 2 Non-prescribed substance use: denies use Caffeine: Yes (4 cups per day) service: No Meds Home Medications and Allergies Home Medications Medication Instructions Recorded Confirmed Type Medical Cannabis PO .HS 01/18/22 06/21/22 History atorvastatin 20 mg tablet 20 mg PO HS 01/18/22 07/19/22 History bupropion HCl 100 mg tablet,12 hr 100 mg PO DAILY 01/18/22 07/19/22 History sustained-release cyclobenzaprine 5 mg tablet 5 mg PO BID PRN 01/18/22 07/19/22 History omeprazole 40 mg capsule,delayed 40 mg PO DAILY 01/18/22 07/19/22 History release trazodone 50 mg tablet 50 mg PO HS 01/18/22 07/19/22 History oxycodone-acetaminophen 7.5 mg-325 1 tab PO Q4H PRN 07/19/22 07/19/22 History mg tablet Allergies Allergy/AdvReac Type Severity Reaction Status Date / Time No Known Allergies Allergy Verified 06/21/22 10:21 Exam Narrative: Exam Narrative: General: Alert and oriented, no acute distress. Respiratory: Equal breath rise bilaterally, maintained on room CV: Regular rhythm rate, well perfused Abdomen: Mild distention soft, mild tenderness on deep palpation right upper quadrant, no rebound or guarding. No evidence of peritonitis. Midline surgical incision well healed. Const: Vital Signs, click to edit/add: Vital Signs - 24 hr 07/18/22 18:15 07/18/22 22:21 07/18/22 22:22 Temperature 96.1 F L Pulse Rate 94 99 Pulse Rate [Pulse Oximeter] 115 H Respiratory Rate 12 Blood Pressure 113/76 Blood Pressure [Ri ght Upper Arm] 128/80 Pulse Oximetry 96 95 95 Oxygen Delivery Me thod Room Air Room Air Oxygen Flow Rate 07/18/22 22:30 07/18/22 22:32 07/18/22 22:33 Temperature Pulse Rate 94 97 96 Pulse Rate [Pulse Oximeter] Respiratory Rate Blood Pressure 110/76 Blood Pressure [Ri ght Upper Arm] Pulse Oximetry 95 95 95 Oxygen Delivery Me thod Oxygen Flow Rate 07/18/22 23:00 07/18/22 23:02 07/18/22 23:03 Temperature Pulse Rate 97 95 97 Pulse Rate [Pulse Oximeter] Respiratory Rate Blood Pressure 119/86 Blood Pressure [Ri ght Upper Arm] Pulse Oximetry 94 93 93 Oxygen Delivery Me thod Oxygen Flow Rate 07/18/22 23:43 07/18/22 23:45 07/19/22 00:00 Temperature Pulse Rate 94 92 92 Pulse Rate [Pulse Oximeter] Respiratory Rate Blood Pressure Blood Pressure [Ri ght Upper Arm] Pulse Oximetry 93 94 91 Oxygen Delivery Me thod Oxygen Flow Rate 07/19/22 00:02 07/19/22 00:15 07/19/22 00:30 Temperature Pulse Rate 92 91 96 Pulse Rate [Pulse Oximeter] Respiratory Rate Blood Pressure 113/80 Blood Pressure [Ri ght Upper Arm] Pulse Oximetry 91 91 93 Oxygen Delivery Me thod Oxygen Flow Rate 07/19/22 00:45 07/19/22 01:00 07/19/22 01:03 Temperature Pulse Rate 94 93 91 Pulse Rate [Pulse Oximeter] Respiratory Rate Blood Pressure 114/74 Blood Pressure [Ri ght Upper Arm] Pulse Oximetry 92 92 91 Oxygen Delivery Me thod Oxygen Flow Rate 07/19/22 02:16 07/19/22 03:00 07/19/22 04:04 Temperature Pulse Rate Pulse Rate [Pulse Oximeter] 81 73 Respiratory Rate 16 Blood Pressure Blood Pressure [Ri ght Upper Arm] 128/94 H Pulse Oximetry 96 96 95 Oxygen Delivery Me thod Nasal Cannula Nasal Cannula Room Air Oxygen Flow Rate 2 2 07/19/22 05:27 07/19/22 05:27 07/19/22 05:28 Temperature Pulse Rate Pulse Rate [Pulse Oximeter] 79 Respiratory Rate 16 Blood Pressure Blood Pressure [Ri ght Upper Arm] 120/82 Pulse Oximetry 94 94 94 Oxygen Delivery Me thod Nasal Cannula Nasal Cannula Oxygen Flow Rate 2 07/19/22 06:25 07/19/22 01:04 07/19/22 01:15 Temperature Pulse Rate 94 86 Pulse Rate [Pulse Oximeter] 81 Respiratory Rate 16 Blood Pressure Blood Pressure [Ri ght Upper Arm] 116/82 Pulse Oximetry 97 92 88 Oxygen Delivery Me thod Room Air Oxygen Flow Rate 07/19/22 01:30 07/19/22 01:45 07/19/22 02:00 Temperature Pulse Rate 82 80 80 Pulse Rate [Pulse Oximeter] Respiratory Rate Blood Pressure Blood Pressure [Ri ght Upper Arm] Pulse Oximetry 93 95 94 Oxygen Delivery Me thod Oxygen Flow Rate 07/19/22 02:02 07/19/22 02:15 07/19/22 02:30 Temperature Pulse Rate 80 78 78 Pulse Rate [Pulse Oximeter] Respiratory Rate Blood Pressure 112/91 H Blood Pressure [Ri ght Upper Arm] Pulse Oximetry 94 96 96 Oxygen Delivery Me thod Oxygen Flow Rate 07/19/22 02:45 07/19/22 03:00 07/19/22 03:02 Temperature Pulse Rate 79 79 77 Pulse Rate [Pulse Oximeter] Respiratory Rate Blood Pressure 128/94 H Blood Pressure [Ri ght Upper Arm] Pulse Oximetry 95 96 96 Oxygen Delivery Me thod Oxygen Flow Rate 07/19/22 03:15 07/19/22 03:30 07/19/22 03:45 Temperature Pulse Rate 77 78 75 Pulse Rate [Pulse Oximeter] Respiratory Rate Blood Pressure Blood Pressure [Ri ght Upper Arm] Pulse Oximetry 96 96 95 Oxygen Delivery Me thod Oxygen Flow Rate 07/19/22 04:00 07/19/22 04:03 07/19/22 04:15 Temperature Pulse Rate 75 79 76 Pulse Rate [Pulse Oximeter] Respiratory Rate Blood Pressure 119/79 Blood Pressure [Ri ght Upper Arm] Pulse Oximetry 96 96 96 Oxygen Delivery Me thod Oxygen Flow Rate 07/19/22 04:30 07/19/22 04:45 07/19/22 05:09 Temperature Pulse Rate 75 77 82 Pulse Rate [Pulse Oximeter] Respiratory Rate Blood Pressure Blood Pressure [Ri ght Upper Arm] Pulse Oximetry 95 94 95 Oxygen Delivery Me thod Oxygen Flow Rate 07/19/22 05:15 07/19/22 05:22 07/19/22 05:30 Temperature Pulse Rate 82 80 80 Pulse Rate [Pulse Oximeter] Respiratory Rate Blood Pressure 120/82 Blood Pressure [Ri ght Upper Arm] Pulse Oximetry 92 94 94 Oxygen Delivery Me thod Oxygen Flow Rate 07/19/22 05:45 07/19/22 06:00 07/19/22 06:02 Temperature Pulse Rate 78 75 78 Pulse Rate [Pulse Oximeter] Respiratory Rate Blood Pressure 116/82 Blood Pressure [Ri ght Upper Arm] Pulse Oximetry 95 96 96 Oxygen Delivery Me thod Oxygen Flow Rate 07/19/22 06:15 07/19/22 06:30 07/19/22 06:45 Temperature Pulse Rate 78 79 80 Pulse Rate [Pulse Oximeter] Respiratory Rate Blood Pressure Blood Pressure [Ri ght Upper Arm] Pulse Oximetry 95 97 96 Oxygen Delivery Me thod Oxygen Flow Rate 07/19/22 07:00 07/19/22 07:02 07/19/22 07:15 Temperature Pulse Rate 86 82 81 Pulse Rate [Pulse Oximeter] Respiratory Rate Blood Pressure 136/96 H Blood Pressure [Ri ght Upper Arm] Pulse Oximetry 97 96 96 Oxygen Delivery Me thod Oxygen Flow Rate 07/19/22 07:30 07/19/22 07:45 07/19/22 08:00 Temperature Pulse Rate 90 77 77 Pulse Rate [Pulse Oximeter] Respiratory Rate Blood Pressure Blood Pressure [Ri ght Upper Arm] Pulse Oximetry 95 96 96 Oxygen Delivery Me thod Oxygen Flow Rate 07/19/22 08:02 07/19/22 08:42 07/19/22 07:00 Temperature Pulse Rate 84 89 Pulse Rate [Pulse Oximeter] 87 Respiratory Rate 16 Blood Pressure 125/80 Blood Pressure [Ri ght Upper Arm] 136/96 H Pulse Oximetry 95 92 96 Oxygen Delivery Me thod Room Air Oxygen Flow Rate Results Labs Labs: Abnormal lab results 07/18/22 07/18/22 07/19/22 Range/Units 18:48 18:48 07:58 WBC 3.76 L (4.50-11.00) K/uL Hgb 17.6 H (13.5-17.5) gm/dL Neut % (Auto) 78.9 H (42.0-72.0) % Lymph % (Auto) 14.6 L (20-44) % Lymph # (Auto) 0.80 L (0.90-2.90) K/uL Potassium 5.8 H (3.6-5.1) mmol/L Glucose 212 H (60-115) mg/dL 07/19/22 Range/Units 07:58 WBC (4.50-11.00) K/uL Hgb (13.5-17.5) gm/dL Neut % (Auto) (42.0-72.0) % Lymph % (Auto) (20-44) % Lymph # (Auto) (0.90-2.90) K/uL Potassium (3.6-5.1) mmol/L Glucose 141 H (60-115) mg/dL Diabetes panel 07/18/22 07/19/22 Range/Units 18:48 07:58 Sodium 141 140 (135-149) mmol/L Potassium 5.8 H 4.3 (3.6-5.1) mmol/L Chloride 101 107 (96-114) mmol/L Carbon Dioxide 21 23 (20-32) mmol/L BUN 22 22 (5-24) mg/dL Creatinine 1.2 0.9 (0.5-1.5) mg/dL Glucose 212 H 141 H (60-115) mg/dL Calcium 10.3 8.4 (8.4-10.6) mg/dL Calcium panel 07/18/22 07/19/22 Range/Units 18:48 07:58 Calcium 10.3 8.4 (8.4-10.6) mg/dL Pituitary panel 07/18/22 07/19/22 Range/Units 18:48 07:58 Sodium 141 140 (135-149) mmol/L Potassium 5.8 H 4.3 (3.6-5.1) mmol/L Chloride 101 107 (96-114) mmol/L Carbon Dioxide 21 23 (20-32) mmol/L BUN 22 22 (5-24) mg/dL Creatinine 1.2 0.9 (0.5-1.5) mg/dL Glucose 212 H 141 H (60-115) mg/dL Calcium 10.3 8.4 (8.4-10.6) mg/dL Adrenal panel 07/18/22 07/19/22 Range/Units 18:48 07:58 Sodium 141 140 (135-149) mmol/L Potassium 5.8 H 4.3 (3.6-5.1) mmol/L Chloride 101 107 (96-114) mmol/L Carbon Dioxide 21 23 (20-32) mmol/L BUN 22 22 (5-24) mg/dL Creatinine 1.2 0.9 (0.5-1.5) mg/dL Glucose 212 H 141 H (60-115) mg/dL Calcium 10.3 8.4 (8.4-10.6) mg/dL All other labs normal. Imaging Abdomen CT scan report/results: report reviewed, image reviewed and other (I reviewed the images with Radiology. There is some mild swirling of the mesentery around the anastomosis, no evidence of any bowel edema. Some nicole rowing present at the anastomosis, similar to) Assessment and Plan Assessment and plan (1) Bowel obstruction: Status: Acute Assessment and Plan: Patient is a 46-year-old male, with complicated history of Crohn's disease and multiple small bowel obstructions. His pain and symptoms are similar to prior episodes that he has had. His vital signs have been stable since admission, no evidence of any tachycardia. Labs are within normal limits, no leukocytosis. I did review the CT scan with the radiologist. There is some mild narrowing of the ileocecal anastomosis, although it does appear less distended than the CT scan from 02/2022. There is also some vascular swirling of the mesentery at the anastomosis, which can be suggestive of an internal hernia, but at this time the patient's clinical exam is fairly benign, making this diagnosis less likely. At this time recommend a Gastrografin small-bowel follow-through for further evaluation. Will also continue with IV fluids and NPO status. He declined NG placement at this time, which is reasonable as long as he does not continue to vomit. I also recommended a GI consult to discuss whether or not the patient would benefit from steroids. At this time there is no significant inflammation noted on the imaging, steroids also carried the downside of hindering healing and increased wound infection if surgery is needed.
[2022-07-19] MEDS: LACTATED RINGERS 1000 ML 1,000 ML 100 ML IV ×2 (13:30→21:56)
[2022-07-19 17:18] LABS: C.Difficile Negative (Negative); CDIFFEPI 027 PRESUMPTIVE NEGATIVE (Negative)
[2022-07-19] MEDS: ACETAMINOPHEN 325 MG TABLET 650 MG PO (17:52)
--- NOTE | 2022-07-19 19:43 | PC.NURSE ---
Patient rating abdominal pain 4-9/10. Dilaudid given per the eMAR to control pain. Tylenol ordered from the standing orders to treat headache. Pt had loose green stool x2 this shift. C-diff sample sent - results:negative. Pt reports nausea however no vomiting - zofran was given. Pt up in the room independently and walking the johnson. Gastrografin given to the patient at approximately 1300. Abdominal x-ray is ordered for 2100 this evening.
--- NOTE | 2022-07-19 21:00 | CRLHL7_ITS ---
For Patients: As a result of the Century Cures Act, medical imaging exams and procedure reports are released immediately into your electronic medical record. You may view this report before your referring provider. If you have questions, please contact your health care provider. Indication: Abdomen pain Technique: Abdomen 1 view. Comparison: CT 07/18/2022 Findings: Gastrografin contrast located throughout the colon extending to the rectum. No evidence of small-bowel obstruction. No pleural effusion. Decreased distention of small bowel loops. Impression: Decreased distention of small-bowel loops. No evidence of small-bowel obstruction. Dictated by Wolf Heath MD @ 07/20/2022 12:01:44 PM (Electronically Signed)
[2022-07-20] MEDS: HYDROmorphone 0.5 mg/0.5 ml inj IVP ×9 (01:43→20:10)
[2022-07-20 03:00] VITALS: BP 124/83; RESP 16; TEMP 36.6; O2SAT 95
--- NOTE | 2022-07-20 05:28 | PC.NURSE ---
Shift note: Pt is doing well. Abdominal X-ray done at 2100. Pt confirmed having 5 loose stool after the x-ray. Pt is independent in room. Pain level at 8 and effectively managed with the PRN Morphine. V/S stable. Blood glucose at 0000 and 0600 were 124 and 118 respectively. NPO status maintained.
[2022-07-20 08:00] VITALS: BP 128/85; PULSE 87; RESP 18; TEMP 36.6; O2SAT 96
[2022-07-20] MEDS: LACTATED RINGERS 1000 ML 1,000 ML 100 ML IV ×2 (08:35→16:55)
[2022-07-20] MEDS: ONDANSETRON 2 MG/ML inj 4 MG IVP ×2 (08:48→16:53)
--- NOTE | 2022-07-20 09:17 | P.IMPN_ITS ---
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 C diff PCR done yesterday was negative. CT scan showed high-grade bowel small obstruction with a transition point at the anastomosis. Small-bowel follow-through showed dye in the colon and patient has had more bowel movements since that. Partial small- bowel obstruction likely secondary to stenosis at anastomosis site; no inflammation seen on CT scan to suggest Crohn's. He is overall improving and we will be advancing diet today. Subjective Time Seen by Provider: 08:20 Date Seen: 07/20/22 Interval history: Lawson had a Gastrografin small-bowel follow-through yesterday that showed by had gotten will through to the colon. He is feeling a bit better today and has had several liquid bowel movements. He continues to have some pain in his right upper quadrant that he describes as typical with bowel obstructions he has had past and notes that it usually takes will days for that pain to resolve. It is no worse or different than it has been in the past. He has some hunger this morning. I spoke with Dr. Luna who saw him this morning as well and recommended advancing to clears. She also recommended outpatient referral for colonoscopy and possible dilation of anastamosis site (would need to be done through [facility]). Exam Narrative: Exam Narrative: General: No acute distress. Awake, alert, oriented. No pallor. No jaundice. Oropharynx: Clear. Mucous membranes moist. Cardiovascular: Regular rate and rhythm. No murmurs, gallops, or rubs. Respiratory: Clear to auscultation bilaterally. No wheezes or crackles. Abdomen: Bowel sounds present. Soft, nondistended, mildly tender in right upper quadrant, Garza sign negative. Extremities: No pedal edema. Const: Vital Signs, click to edit/add: Vital Signs - 24 hr 07/19/22 10:31 07/19/22 11:00 07/19/22 15:00 Temperature 97.1 F L 98 F Respiratory Rate 16 16 Blood Pressure [Ri ght Arm] 118/81 114/79 Pulse Oximetry 94 94 93 Oxygen Delivery Me thod Room Air Room Air Oxygen Flow Rate 07/19/22 15:17 07/19/22 15:17 07/19/22 19:00 Temperature 98 F 98.2 F Respiratory Rate 16 16 16 Blood Pressure [Ri ght Arm] 114/79 110/68 Pulse Oximetry 93 93 94 Oxygen Delivery Me thod Room Air Room Air Room Air Oxygen Flow Rate 2 07/19/22 23:00 07/19/22 23:00 07/20/22 03:00 Temperature 98.2 F 98 F Respiratory Rate 16 16 Blood Pressure [Ri ght Arm] 99/67 124/83 Pulse Oximetry 94 94 95 Oxygen Delivery Me thod Room Air Room Air Oxygen Flow Rate Labs Labs: Laboratory Results - last 24 hr 07/19/22 10:29 Stl C.difficile Tox PCR Negative St C. diff Tox Epid 027 PRESUMPTIVE NEGATIVE
--- NOTE | 2022-07-20 10:05 | PM.GSPN ---
Subjective Subjective Date Seen: 07/20/22 Interval history: Patient is feeling better this morning, denies any significant abdominal pain. He denies any nausea or vomiting overnight. He has had multiple watery bowel movements. He is feeling hungry this morning. Exam Narrative: Exam Narrative: General: Alert and oriented, no acute distress. Lying comfortably in bed. Abdomen: Soft, nontender and nondistended. Active bowel sounds. Const: Vital Signs, click to edit/add: Vital Signs - 24 hr 07/19/22 10:31 07/19/22 11:00 07/19/22 15:00 Temperature 97.1 F L 98 F Pulse Rate [Left P ulse Oximeter] Respiratory Rate 16 16 Blood Pressure [Ri ght Arm] 118/81 114/79 Pulse Oximetry 94 94 93 Oxygen Delivery Me thod Room Air Room Air Oxygen Flow Rate 07/19/22 15:17 07/19/22 15:17 07/19/22 19:00 Temperature 98 F 98.2 F Pulse Rate [Left P ulse Oximeter] Respiratory Rate 16 16 16 Blood Pressure [Ri ght Arm] 114/79 110/68 Pulse Oximetry 93 93 94 Oxygen Delivery Me thod Room Air Room Air Room Air Oxygen Flow Rate 2 07/19/22 23:00 07/19/22 23:00 07/20/22 03:00 Temperature 98.2 F 98 F Pulse Rate [Left P ulse Oximeter] Respiratory Rate 16 16 Blood Pressure [Ri ght Arm] 99/67 124/83 Pulse Oximetry 94 94 95 Oxygen Delivery Me thod Room Air Room Air Oxygen Flow Rate 07/20/22 08:00 07/20/22 08:00 Temperature 98 F Pulse Rate [Left P ulse Oximeter] 87 Respiratory Rate 18 Blood Pressure [Ri ght Arm] 128/85 Pulse Oximetry 96 96 Oxygen Delivery Me thod Room Air Oxygen Flow Rate Labs/Imaging Imaging Imaging: Abdominal x-ray reviewed, evidence of contrast within colon Progress Note: A&P Assessment and plan (1) Bowel obstruction: Status: Acute Assessment and Plan: Patient is a 46-year-old male, who presented to the hospital with evidence of a partial small-bowel obstruction. A Gastrografin challenge was performed with evidence of contrast in colon and patient now having return of bowel function. A diet of clear liquids was ordered for this morning, advanced as tolerated. Recommend that patient be seen by his drug abuse worker as an outpatient for colonoscopy and interrogation of his ileocolonic anastomosis.
[2022-07-20 11:00] VITALS: PULSE 76; RESP 16; O2SAT 96
[2022-07-20] MEDS: ACETAMINOPHEN 325 MG TABLET 650 MG PO ×2 (14:56→22:48)
[2022-07-20 15:00] VITALS: BP 134/80; PULSE 79; RESP 18; TEMP 36.9; O2SAT 95
[2022-07-20 19:00] VITALS: BP 134/78; PULSE 91; RESP 16; TEMP 36.6; O2SAT 95
--- NOTE | 2022-07-20 19:51 | PC.NURSE ---
Pt up independently. Ice to Upper Right Quadrant at site of abdominal discomfort. See MAR for medication administration. Nausea after attempting clear liquid diet. No vomiting.
[2022-07-20] MEDS: SODIUM CHLORIDE 0.9 % (FLUSH) 10 ML SYRINGE 5 ML IVF (20:10)
[2022-07-20 23:00] VITALS: BP 129/84; PULSE 76; RESP 14; RESP 16; TEMP 36.6; O2SAT 95
[2022-07-21] MEDS: HYDROmorphone 0.5 mg/0.5 ml inj IVP ×9 (00:08→22:04)
[2022-07-21] MEDS: SODIUM CHLORIDE 0.9 % (FLUSH) 10 ML SYRINGE 5 ML IVF (00:17)
[2022-07-21] MEDS: LACTATED RINGERS 1000 ML 1,000 ML 100 ML IV ×3 (00:21→20:37)
[2022-07-21 03:00] VITALS: BP 117/76; PULSE 78; RESP 16; TEMP 36.4; O2SAT 94
--- NOTE | 2022-07-21 06:45 | PC.NURSE ---
Pt alert and oriented x3, pleasant and cooperative. Pt reports pain 8-10/10 in RUQ in abdomen. Pain managed with PRN mediations. Patient denies N/V, chest pain, and SOB. Pt is NPO but can take sips with meds.
[2022-07-21 07:00] VITALS: BP 138/85; PULSE 86; RESP 18; TEMP 36.9; O2SAT 96
[2022-07-21] MEDS: ONDANSETRON 2 MG/ML inj 4 MG IVP (10:29)
[2022-07-21 11:00] VITALS: BP 130/89; PULSE 88; RESP 18; TEMP 36.5; O2SAT 98
[2022-07-21] MEDS: KETOROLAC 30 MG/ML inj IVP ×2 (12:50→22:04)
[2022-07-21 15:00] VITALS: BP 148/93; PULSE 72; RESP 18; TEMP 36.4; O2SAT 95; O2SAT 98
--- NOTE | 2022-07-21 16:27 | PM.IMPN1 ---
Progress Note: A&P Assessment and plan (1) Bowel obstruction: Problem details: Continue on IV fluids. Toradol, Dilaudid. Ambulate. Consider reimaging either with abdominal x-ray or CT scan if he unable to keep clears progressing. Status: Acute (2) Crohn's disease of both small and large intestine: Problem details: No inflammation seen on admission CT. The SBO is likely at the anastomosis site from his resection earlier this year. 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 He is passing a little gas today no stool. He feels tender throughout his abdomen. It feels tense. He is requesting a little higher dose of the Dilaudid as well as adding Toradol. He remembers Toradol helping more than opioids in previous hospitalizations. He also had a rough night last night. He [place] paste in did not feel like he could rest. He feels the SCDs and pulse ox in all the other equipment is making him anxious. No new labs today Review of Systems: See subjective Cardiac: No new chest pain/pressure/palpitations. Respiratory: no new dyspnea. GI: Continued abdominal bloating Objective: Vitals: see above Lungs: Clear. Cardiac: S1S2. Abdomen: Taut. Hypoactive bowel sounds. No rebound tenderness. Disposition/Potential discharge - Likely to return to previous living situation. Total time is 35 minutes with greater than 50% spent in counseling and coordination of care. Exam Const: Vital Signs, click to edit/add: Vital Signs - 24 hr 07/20/22 19:00 07/20/22 23:00 07/20/22 23:00 Temperature 97.8 F Pulse Rate [Left P ulse Oximeter] 91 Respiratory Rate 16 14 Blood Pressure [Le ft Arm] 134/78 Pulse Oximetry 95 95 Oxygen Delivery Me thod Room Air Oxygen Flow Rate 07/20/22 23:00 07/21/22 03:00 07/21/22 07:00 Temperature 97.9 F 97.6 F Pulse Rate [Left P ulse Oximeter] 76 78 Respiratory Rate 16 16 Blood Pressure [Le ft Arm] 129/84 117/76 Pulse Oximetry 95 94 96 Oxygen Delivery Me thod Room Air Room Air Oxygen Flow Rate 07/21/22 07:00 07/21/22 11:00 07/21/22 15:00 Temperature 98.5 F 97.7 F Pulse Rate [Left P ulse Oximeter] 86 88 Respiratory Rate 18 18 Blood Pressure [Le ft Arm] 138/85 130/89 Pulse Oximetry 96 98 98 Oxygen Delivery Me thod Room Air Room Air Oxygen Flow Rate 0
[2022-07-21 19:00] VITALS: BP 139/88; PULSE 69; RESP 18; TEMP 36.6; O2SAT 96
--- NOTE | 2022-07-21 20:03 | PC.NURSE ---
shift note: vss stable. pt states pain in abd 8-05/02. Dr. Dillon notified and orders to increase dose to dilaudid and added toradol. Pt states relief with this change in prn medication. LS clr. BS hypo x4. IV patent. Pt ambulating in [place] indept. pt denies passing flatus. Pt given clrs per Dr. Dillon. Pt denies n/v but abd appeared tighter than initial assessment in a.m. Pt told to slow down with liquids and only sip. Dr. Dillon notified.
[2022-07-21] MEDS: ZOLPIDEM 5 MG TABLET 10 MG PO (22:04)
[2022-07-21 23:00] VITALS: BP 126/69; PULSE 69; PULSE 77; RESP 18; TEMP 36.4; O2SAT 96
[2022-07-22 03:00] VITALS: BP 112/69; BP 134/80; PULSE 80; RESP 18; TEMP 36.6; O2SAT 95
[2022-07-22] MEDS: KETOROLAC 30 MG/ML inj IVP ×3 (05:18→18:51)
[2022-07-22] MEDS: HYDROmorphone 0.5 mg/0.5 ml inj IVP ×8 (06:30→21:44)
[2022-07-22] MEDS: LACTATED RINGERS 1000 ML 1,000 ML 100 ML IV ×2 (06:41→17:39)
--- NOTE | 2022-07-22 06:48 | PC.NURSE ---
VSS on RA. Patient is alert and oriented x 4, able to verbalize needs to staff using call light. Pain managed with Dilaudid 1 mg x3, Toradol x2. Pt is independent in room. Continent with bowel and bladder. No BM this shift but passing gas.
[2022-07-22 07:00] VITALS: BP 123/78; PULSE 66; RESP 18; TEMP 36.7; O2SAT 94
--- NOTE | 2022-07-22 07:31 | CRLHL7_ITS ---
For Patients: As a result of the Century Cures Act, medical imaging exams and procedure reports are released immediately into your electronic medical record. You may view this report before your referring provider. If you have questions, please contact your health care provider. Indication: SBO FOLLOW UP Technique: Abdomen 3 view. Comparison: July 19, 2022. Findings: Decreased volume of Gastrografin throughout the colon which again extends to the level of the rectum. Nondilated loops of bowel seen throughout the abdomen. No evidence of free air. Impression: No evidence of small-bowel obstruction. Dictated by Samir Ruiz MD @ 07/22/2022 7:31:16 AM (Electronically Signed)
[2022-07-22 08:20] LABS: Ionized Calcium* 1.11 mmol/L (1.11-1.30); Lactate* 0.7 mmol/L (0.5-1.9)
[2022-07-22 08:58] LABS: Albumin* 4.3 g/dL (3.3-5.0); Chloride* 105 mmol/L (96-114); Sodium* 138 mmol/L (135-149)
[2022-07-22 08:59] LABS: Potassium* 4.3 mmol/L (3.6-5.1)
[2022-07-22 09:01] LABS: Creatinine* 0.7 mg/dL (0.5-1.5); Est. Creatinine Clearance* 153.31; Estimated Glomerular Filt Rate 115 ml/min
[2022-07-22 09:02] LABS: Blood Urea Nitrogen* 11 mg/dL (5-24); Calcium* 8.9 mg/dL (8.4-10.6); Carbon Dioxide* 25 mmol/L (20-32); Glucose* 136 mg/dL (60-115)
[2022-07-22 09:04] LABS: C Reactive Protein* 0.6 mg/dL (0.5-1.0)
[2022-07-22 09:21] LABS: Lipase* 77 U/L (23-300)
--- NOTE | 2022-07-22 10:06 | PM.IMPN1 ---
Progress Note: A&P Assessment and plan (1) Bowel obstruction: Problem details: Continue on IV fluids. Toradol, Dilaudid. Ambulate. advance to full liquid diet; if unable to tolerate full liquid obtain CT AP and re consult general surgery Status: Acute (2) Crohn's disease of both small and large intestine: Problem details: No inflammation seen on admission CT. The SBO is likely at the anastomosis site from his resection earlier this year. Status: Chronic (3) Hyperkalemia: Problem details: K 5.8 on admission, K 4.3 today. 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 Nondilated loops of bowel seen throughout the abdomen. No evidence of free air. Impression: No evidence of small-bowel obstruction. Exam Narrative: Exam Narrative: Gen: NAD HEENT: NCAT EOMI MMM CV: RRR s1 s2 LCTAB Abd: soft, nt, nd; hypoactive bowel sounds Neuro: AOX3 nonfocal screening exam Const: Vital Signs, click to edit/add: Vital Signs - 24 hr 07/21/22 11:00 07/21/22 15:00 07/21/22 15:00 Temperature 97.7 F 97.5 F L Pulse Rate [Left P ulse Oximeter] 88 72 Respiratory Rate 18 18 Blood Pressure [Le ft Arm] 130/89 148/93 H Blood Pressure [Ri ght Arm] Pulse Oximetry 98 98 95 Oxygen Delivery Me thod Room Air Room Air Oxygen Flow Rate 0 07/21/22 19:00 07/21/22 23:00 07/21/22 23:00 Temperature 97.9 F 97.6 F Pulse Rate [Left P ulse Oximeter] 69 69 77 Respiratory Rate 18 18 18 Blood Pressure [Le ft Arm] 139/88 126/69 Blood Pressure [Ri ght Arm] Pulse Oximetry 96 96 Oxygen Delivery Me thod Room Air Room Air Oxygen Flow Rate 07/22/22 03:00 Temperature 97.9 F Pulse Rate [Left P ulse Oximeter] 80 Respiratory Rate 18 Blood Pressure [Le ft Arm] 112/69 Blood Pressure [Ri ght Arm] 134/80 Pulse Oximetry 95 Oxygen Delivery Me thod Room Air Oxygen Flow Rate 0 Labs Labs: Laboratory Results - last 24 hr 07/22/22 07/22/22 08:11 08:11 Sodium 138 Potassium 4.3 Chloride 105 Carbon Dioxide 25 BUN 11 Creatinine 0.7 Estimated Creat Clear 153.31 Estimated GFR 115 Glucose 136 H Lactate 0.7 Calcium 8.9 Ionized Calcium Joshua 1.11 Magnesium 2.0 C-Reactive Protein 0.6 Albumin 4.3 Lipase 77
[2022-07-22 11:00] VITALS: BP 142/87; PULSE 71; RESP 18; TEMP 36.7; O2SAT 97
[2022-07-22 15:00] VITALS: BP 136/79; PULSE 76; RESP 18; TEMP 36.7; O2SAT 94
--- NOTE | 2022-07-22 18:11 | PC.NURSE ---
shift note: Pt. pleasant, cooperative, alert and oriented x4. vss stable. pt states pain in abd 8-9/10, PRN toradol and dilauded administered, see eMAR. LS clr. IV patent. Pt ambulating in johnson indept. pt. reports passing flatus. Pt. advanced to full liquids per Dr. Moon, and tolerated well. Pt. was then advanced to Reg. Diet per Dr. Dillon and he tolerated well. Pt denies n/v and some bowel sounds are present in lower quadrants. Pt. voiding independently and uses call light appropriately.
[2022-07-22 19:00] VITALS: BP 158/88; PULSE 64; RESP 18; TEMP 36.8; O2SAT 96
[2022-07-22] MEDS: ACETAMINOPHEN 325 MG TABLET 650 MG PO (19:47)
[2022-07-22] MEDS: OXYCODONE 5 MG TABLET PO (21:44)
[2022-07-22] MEDS: SODIUM CHLORIDE 0.9 % (FLUSH) 10 ML SYRINGE 5 ML IVF (21:45)
[2022-07-22 22:55] VITALS: BP 140/84; PULSE 97; RESP 18; TEMP 36.9; O2SAT 97
[2022-07-23] MEDS: SODIUM CHLORIDE 0.9 % (FLUSH) 10 ML SYRINGE 5 ML IVF ×2 (00:14→00:22)
[2022-07-23] MEDS: ZOLPIDEM 5 MG TABLET 10 MG PO (00:14)
[2022-07-23] MEDS: HYDROmorphone 0.5 mg/0.5 ml inj IVP (00:14)
[2022-07-23] MEDS: KETOROLAC 30 MG/ML inj IVP (00:22)
[2022-07-23 03:00] VITALS: RESP 16
[2022-07-23] MEDS: LACTATED RINGERS 1000 ML 1,000 ML 100 ML IV (04:53)
--- NOTE | 2022-07-23 05:36 | PC.NURSE ---
[id number] Pt independent in room, loose moderate amount BM x2 during the evening, passing gas, bowel sounds active. Pt had shower in the evening. Pt states pain to URQ, 5-9/10, prn pain medications administered with some relief. No N/V reported this shift.
[2022-07-23 07:00] VITALS: BP 123/86; PULSE 84; PULSE 93; RESP 16; TEMP 37; O2SAT 93
[2022-07-23] MEDS: ACETAMINOPHEN 325 MG TABLET 650 MG PO (09:55)
--- NOTE | 2022-07-23 15:51 | P.DS_ITS ---
DS: Providers Provider Date Seen: 07/23/22 Date of admission: 07/19/22 10:30 Primary care physician: Mark Gallegos MD Admitting Clinician: Xena Dillon MD Consults: 07/19/22 10:29 Consult to Physician [CONS] Routine Comment: Consulting Provider: Mis Luna Has provider been notified: Yes Attending Physician on discharge: Xena Dillon MD [facility] Date of Discharge: 07/23/22 DS: Diagnosis Discharge Diagnosis (1) Bowel obstruction: Status: Acute Problem details: Conservative care. He was able to avoid an NG tube an surgery. I have asked him to follow-up with [facility] to discuss per venting small-bowel obstructions either requiring an oral steroid or a dilation of his anastomosis. (2) Crohn's disease of both small and large intestine: Status: Chronic Problem details: No inflammation seen on admission CT. The SBO is likely at the anastomosis site from his resection earlier this year. 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), managed as type 2: Status: Chronic Problem details: Blood sugars all under 200 DS: Summary Status at Discharge Cognitive/behavioral status at discharge: HOSPITALIST DISCHARGE SUMMARY ATTENDING PHYSICIAN: Xena Dillon MD FINAL DIAGNOSIS: Small-bowel obstruction, conservative care Crohn's disease Type 2 diabetes HOSPITAL FOLLOWUP ISSUES: [facility] - discussed prevent Ng small-bowel obstruction and or dilation of his anastomosis REFERRALS WHILE ADMITTED: None REFERRALS AFTER DISCHARGE: None BRIEF HOSPITAL COURSE: 46-year-old Lawson with a known history of Crohn's colitis symptoms of a small- bowel obstruction. He was admitted for several days. He received conservative care. He did not needed NG tube. He did not need surgery. He did not receive peripheral or total parental nutrition. Was kept on IV fluids, analgesics and antiemetics. He made slow steady progress. He was discharged on the morning of 07/23/2022 after tolerating a normal diet. SUBSTANTIVE NOTATIONS ON IMAGING, LAB, MICROBIOLOGY/PATHOLOGY STUDIES: He never had leukocytosis, his hemoglobin was stable. His basic chemistries which and also included ionized calcium measurement, magnesium were all normal. C diff negative CT on admission Recurrent high-grade small-bowel obstruction with transition point at the bowel anastomosis in the right lower quadrant. DISCHARGE MEDICATIONS: See Reconciled list - SIGNIFICANT CHANGES: REVIEW OF SYSTEMS No new chest pain or dyspnea Pain controlled No voiding difficulties Tolerating diet challenge PHYSICAL EXAM: CONSTITUTIONAL: VITAL SIGNS: see record. HEENT: Normocephalic, atraumatic. PERRL, EOMI, conjunctivae pink, no scleral icterus. Ears and nose externally normal. Pharynx normal. NECK: No JVD. No carotid bruit, no thyromegaly, no adenopathy. CHEST: Clear to auscultation bilaterally. HEART: S1 and S2 normal. Edema ABDOMEN: Soft, nontender. Normal bowel sounds. MUSCULOSKELETAL: No gross joint deformity or swelling. NEURO: Cranial nerves intact. Grossly intact. No asymmetric findings. SKIN: No rashes, petechiae, concerning changes PSYCHIATRIC: Mood euthymic. DISPOSITION: Home with Time spent on discharge 37 minutes. Functional status at discharge: independent ambulation Overall status at discharge: patient is progressing back to baseline Time Spent with Patient Time attestation: Total time spent providing and/or coordinating discharge services: Time spent: Greater than 30 minutes Exam Const: Vital Signs, click to edit/add: Vital Signs - 24 hr 07/22/22 19:00 07/22/22 22:55 07/23/22 03:00 Temperature 98.3 F 98.4 F Pulse Rate [Left P ulse Oximeter] 64 97 Respiratory Rate 18 18 16 Blood Pressure [Le ft Arm] 158/88 H 140/84 H Pulse Oximetry 96 97 Oxygen Delivery Me thod Room Air Room Air Oxygen Flow Rate 0 07/23/22 07:00 07/23/22 07:00 Temperature 98.6 F Pulse Rate [Left P ulse Oximeter] 93 84 Respiratory Rate 16 16 Blood Pressure [Le ft Arm] 123/86 Pulse Oximetry 93 Oxygen Delivery Me thod Room Air Oxygen Flow Rate Discharge Plan Discharge Disposition: Home, Self-Care Date of Admission: 07/19/22 10:30 Attending Provider on Discharge: Xena Dillon Consulting Providers: Mis Luna Primary Care Provider: Mark Gallegos Condition: Improved Anticipated Discharge Date/Time: 07/23/22 09:25 Discharge Medications: New ketorolac 10 mg tablet 10 mg PO TID 5 Days Qty: 15 0RF ondansetron 4 mg tablet,disintegrating 4 mg PO Q8H PRN (Reason: nausea and vomiting) Qty: 14 0RF Continued cyclobenzaprine 5 mg tablet 5 mg PO BID PRN atorvastatin 20 mg tablet 20 mg PO HS omeprazole 40 mg capsule,delayed release(DR/EC) 40 mg PO DAILY Medical Cannabis PO .HS trazodone 50 mg tablet 50 mg PO HS bupropion HCl 100 mg tablet sustained-release 12 hr 100 mg PO DAILY acetaminophen 325 mg Tablet 650 mg PO Q6H PRN14 Days Qty: 100 0RF oxycodone-acetaminophen 7.5-325 mg tablet 1 tab PO Q4H PRN pregabalin 100 mg capsule 100 mg PO BID Qty: 60 5RF metoprolol succinate 25 mg tablet extended release 24 hr 25 mg PO BID Qty: 180 3RF glipizide 10 mg tablet extended release 24hr 10 mg PO DAILY Qty: 90 3RF lorazepam 0.5 mg tablet 0.5 mg PO BID PRN (Reason: anxiety) Qty: 60 1RF gemfibrozil 600 mg tablet 600 mg PO BID Qty: 60 10RF sitagliptin phosphate 100 mg tablet 100 mg PO DAILY Qty: 30 11RF Discharge Orders: Discharge Order (Routine); Ordered 07/23/22 Ordered By: Xena Dillon Patient Education: Dehydration (DC), Crohn Disease (DC), Hyperkalemia (DC), Chronic Hypertension (DC), Bowel Obstruction (DC), Diabetes and Nutrition (DC), Diabetes and Exercise (DC) Additional Instructions: [facility] in 1-2 weeks to evaluate for need for steroids and colonoscopy for anastomosis dilation. Please call and follow up. phone number- [phone] Activity Level: Activity as Tolerated Discharge Diet: Heart Healthy (2 gm sodium, low fat) Follow Up Appointments: Mark Gallegos MD [Primary Care Provider] - Forms: [employer] Info Instructions
== END 2022-07-23 15:37 | disposition home or self-care (01) | DRG 247 ==
LOC: ED 18:40 → MEDSURG 07-19 08:59
PROVIDERS: Internal Medicine; Admitting Provider Family Medicine; Emergency Provider Emergency Medicine Emergency Medical Services; PCP Family Medicine; Visit Provider Family Medicine
DX: K56.609 Unspecified intestinal obstruction, unspecified as to partial versus complete obstruction (principal); K50.80 Crohn's disease of both small and large intestine without complications; E13.9 Other specified diabetes mellitus without complications; E86.0 Dehydration; Z98.0 Intestinal bypass and anastomosis status; E87.5 Hyperkalemia; E78.5 Hyperlipidemia, unspecified; I10 Essential (primary) hypertension; F41.9 Anxiety disorder, unspecified; Z80.6 Family history of leukemia; Z80.42 Family history of malignant neoplasm of prostate; Z82.61 Family history of arthritis; Z84.89 Family history of other specified conditions; M79.7 Fibromyalgia; K21.9 Gastro-esophageal reflux disease without esophagitis; R10.9 Unspecified abdominal pain; R11.2 Nausea with vomiting, unspecified; Z90.49 Acquired absence of other specified parts of digestive tract; Z98.890 Other specified postprocedural states; Z98.52 Vasectomy status; R14.0 Abdominal distension (gaseous); R10.11 Right upper quadrant pain; R91.8 Other nonspecific abnormal finding of lung field; K76.0 Fatty (change of) liver, not elsewhere classified; D73.89 Other diseases of spleen
CPT/HCPCS: 36415; 74018; 74019; 74177; 80048; 82040; 82330; 82962; 83605; 83690; 83735; 85025; 86140; 87493; 87502; 87634; 87635; 94761; 99285; A9270; J1170; J1885; J2405; J7030; J7120; Q9967

== ENCOUNTER 2022-08-17 09:20 | Emergency (ER) | payer BC, SELFPAY ==
--- NOTE | 2022-08-17 09:34 | ED.GENADULT ---
HPI - General Adult General Time Seen by Provider: 09:34 Date Seen: 08/17/22 Chief complaint: Abdominal Pain Stated complaint: possible bowel obstruction Time Seen by Provider: 08/17/22 09:31 Source: patient History of Present Illness HPI narrative: Lawson is a 47-year-old male past medical history includes Crohn's disease status post bowel resection in the past, diabetes mellitus type 2, hypertension presents emerged department via private car with abdominal pain. Patient has have a history of recurrent bowel obstructions in the past. The last 1 he had was last month, he was admitted here for inpatient cares, he states around 7:00 p.m. he developed some left upper quadrant pain, there was no radiation, sharp in nature, constant, has not been passing gas this morning, he had a watery bowel movement, denies any vomiting but has ongoing nausea. Denies any fevers or chills no chest pain or shortness of breath. Pain is 5/10, sharp in nature. Patient had been doing well prior to 7:00 p.m. last evening. Related Data Home Medications Medication Instructions Recorded Confirmed Medical Cannabis PO .HS 01/18/22 06/21/22 atorvastatin 20 mg tablet 20 mg PO HS 01/18/22 07/19/22 bupropion HCl 100 mg tablet,12 hr 100 mg PO DAILY 01/18/22 07/19/22 sustained-release cyclobenzaprine 5 mg tablet 5 mg PO BID PRN 01/18/22 07/19/22 omeprazole 40 mg capsule,delayed 40 mg PO DAILY 01/18/22 07/19/22 release trazodone 50 mg tablet 50 mg PO HS 01/18/22 07/19/22 oxycodone-acetaminophen 7.5 mg-325 1 tab PO Q4H PRN 07/19/22 07/19/22 mg tablet Previous Rx's Medication Instructions Recorded pregabalin 100 mg capsule 100 mg PO BID #60 caps 02/16/22 metoprolol succinate 25 mg 25 mg PO BID #180 tabs 03/15/22 tablet,extended release 24 hr acetaminophen 325 mg tablet 650 mg PO Q6H PRN 14 days #100 tabs 03/22/22 glipizide 10 mg tablet, extended 10 mg PO DAILY #90 tabs 04/19/22 release 24 hr lorazepam 0.5 mg tablet 0.5 mg PO BID PRN anxiety #60 tabs 04/19/22 gemfibrozil 600 mg tablet 600 mg PO BID #60 tabs 06/30/22 sitagliptin phosphate 100 mg tablet 100 mg PO DAILY #30 tabs 07/12/22 ketorolac 10 mg tablet 10 mg PO TID 5 days #15 tabs 07/23/22 ondansetron 4 mg disintegrating 4 mg PO Q8H PRN nausea and 07/23/22 tablet vomiting #14 tabs Allergies Allergy/AdvReac Type Severity Reaction Status Date / Time No Known Allergies Allergy Verified 06/21/22 10:21 Review of Systems Status of ROS: Reports: 10 or more systems reviewed and unremarkable except as noted in History and below [facility] History Anxiety Chronic back pain Crohn's disease of both small and large intestine Depression Family history of leukemia Family history of prostate cancer Family history of rheumatoid arthritis Fibromyalgia GERD (gastroesophageal reflux disease) Herniation of lumbar intervertebral disc with radiculopathy Hyperlipidemia Hypertension Hypogonadism in male Insomnia 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 He does not smoke. Rarely drinks alcohol. Denies recreational drug use. 5 children, ages 6-17. Highest level of school completed/degree received: Associate degree: occupational, technical, vocational program Smoking Status: Never smoker Do you use any of these nicotine containing products: None Second hand tobacco smoke exposure: No How often do you have a drink containing alcohol: monthly or less Alcohol type: beer How often do you have six or more drinks on one occasion: Never AUDIT-C Alcohol total score: 1 Non-prescribed substance use: denies use Caffeine: Yes (8 cups) service: No Exam Narrative: Exam Narrative: General: Mild distress, lying comfortably HEENT: Pupils equal round Reactive to light, extraocular muscles intact Lungs: Clear to auscultation bilaterally Heart: Normal sinus rhythm S1-S2 Abdomen: Distended, tender to palpation the epigastric and left upper quadrant, rebounding guarding present, bowel sounds are hypoactive Neuro: Alert awake and oriented x3 Const: Vital Signs, click to edit/add: Vital Signs - 24 hr 08/17/22 11:06 08/17/22 11:30 08/17/22 12:00 Pulse Rate [Pulse Oximeter] 83 86 78 Respiratory Rate 16 16 16 Blood Pressure [Ri ght Upper Arm] 105/81 104/78 103/80 Pulse Oximetry 94 92 94 08/17/22 12:30 Pulse Rate [Pulse Oximeter] 77 Respiratory Rate 16 Blood Pressure [Ri ght Upper Arm] 106/86 Pulse Oximetry 92 Course Course Hospital Course: 9:45 AM: AIDET performed. Vitals are stable at this time, workup will include IV peripheral, 0.5 mg IV Dilaudid and 4 mg IV Zofran for his pain and nausea, will obtain CBC, lactate, CMP, lipase, likely obtain CT abdomen and pelvis with IV contrast rule out obstruction, patient was in agreement. Differential diagnosis include but not limited to gastroenteritis, mesenteric adenitis, inflammatory bowel disease, irritable bowel disease, ischemic colitis, small-bowel obstruction, large-bowel obstruction, constipation, volvulus, cholecystitis, pancreatitis, appendicitis, urolithiasis Reevaluation(s) Reevaluation #1: patient updated on his imaging and lab results, IMPRESSION: 1. No acute small bowel obstruction. Scattered fluid-filled nondistended small bowel loops throughout the abdomen and pelvis. 2. Postsurgical change from small and/or large bowel resection/reanastomosis right lower quadrant. 3. Postsurgical change from ventral abdominal wall hernia repair with mesh. 4. No acute inflammatory process identified. CBC showed no leukocytosis, lactate within normal limits, metabolic panel unchanged from previous. Patient is feeling better after above care given, imaging showed no signs of bowel obstruction, plan would be to discharge, he will follow up with primary care provider over the next 7-10 days.Return precautions given. Time: 11:53 Vital Signs Vital signs: Initial Vital Signs Temperature 96.8 F L 08/17/22 09:40 Temperature Source Temporal Artery Scan 08/17/22 09:40 Pulse Rate 78 08/17/22 09:40 Blood Pressure 114/78 08/17/22 09:40 Blood Pressure Mean 90 08/17/22 09:40 Blood Pressure Position Supine 08/17/22 09:40 Pulse Oximetry 98 08/17/22 09:40 Oxygen Delivery Method 08/17/22 09:40 Vital Signs Temperature 96.8 F L 08/17/22 09:40 Pulse Rate 78 08/17/22 09:40 Blood Pressure 114/78 08/17/22 09:40 Pulse Oximetry 98 08/17/22 09:40 Oxygen Delivery Method 08/17/22 09:40 Temperature 96.8 F L 08/17/22 09:40 Pulse Rate 77 08/17/22 12:30 Respiratory Rate 16 08/17/22 12:30 Blood Pressure 106/86 08/17/22 12:30 Pulse Oximetry 92 08/17/22 12:30 Oxygen Delivery Method 08/17/22 09:40 Medical Decision Making Lab Data Labs: Lab Results 08/17/22 08/17/22 08/17/22 Range/Units 09:58 09:58 09:58 WBC 5.96 (4.50-11.00) K/uL RBC 4.87 (4.30-5.90) m/uL Hgb 14.8 (13.5-17.5) gm/dL Hct 44.6 (37.0-53.0) % MCV 92 (80-100) fL MCH 30 (26-34) pg MCHC 33 (32-36) gm/dL RDW Coeff of Tiffanie 13.8 (11.5-15.5) % Plt Count 332 (140-440) K/uL Neut % (Auto) 62.3 (42.0-72.0) % Lymph % (Auto) 26.2 (20-44) % Thayer % (Auto) 8.6 (0.0-11.0) % Eos % (Auto) 2.5 (0.0-7.0) % Baso % (Auto) 0.2 (0.0-3.0) % Neut # (Auto) 3.72 (1.7-7.0) K/uL Lymph # (Auto) 1.56 (0.90-2.90) K/uL Thayer # (Auto) 0.50 (0.00-0.90) K/UL Eos # (Auto) 0.15 (0.00-0.50) K/uL Baso # (Auto) 0.01 (0.00-0.30) K/uL Sodium Cancelled Potassium Cancelled Chloride Cancelled Carbon Dioxide Cancelled BUN Cancelled Creatinine Cancelled Estimated Creat Clear Cancelled Estimated GFR Cancelled Glucose Cancelled Lactate 1.2 (0.5-1.9) mmol/L Calcium Cancelled Total Bilirubin Cancelled AST Cancelled ALT Cancelled Alkaline Phosphatase Cancelled Total Protein Cancelled Albumin Cancelled Lipase 71 (23-300) U/L 08/17/22 Range/Units 12:10 WBC (4.50-11.00) K/uL RBC (4.30-5.90) m/uL Hgb (13.5-17.5) gm/dL Hct (37.0-53.0) % MCV (80-100) fL MCH (26-34) pg MCHC (32-36) gm/dL RDW Coeff of Tiffanie (11.5-15.5) % Plt Count (140-440) K/uL Neut % (Auto) (42.0-72.0) % Lymph % (Auto) (20-44) % Thayer % (Auto) (0.0-11.0) % Eos % (Auto) (0.0-7.0) % Baso % (Auto) (0.0-3.0) % Neut # (Auto) (1.7-7.0) K/uL Lymph # (Auto) (0.90-2.90) K/uL Thayer # (Auto) (0.00-0.90) K/UL Eos # (Auto) (0.00-0.50) K/uL Baso # (Auto) (0.00-0.30) K/uL Sodium 143 Potassium 4.8 Chloride 109 Carbon Dioxide 20 BUN 21 Creatinine 0.9 Estimated Creat Clear 114.67 Estimated GFR 106 Glucose 135 H Lactate (0.5-1.9) mmol/L Calcium 10.0 Total Bilirubin 0.6 AST 35 ALT 35 Alkaline Phosphatase 62 Total Protein 8.7 H Albumin 5.1 H Lipase (23-300) U/L Discharge Plan Discharge Clinical Impression: Abdominal pain, History of small bowel obstruction Patient Disposition: Home, Self-Care Condition: Improved Instructions: Abdominal Pain (ED) Additional Instructions: To follow up with primary care provider in the next 7-10 days. Slowly advance your diet. Return if worsening symptoms. Prescriptions: No Action cyclobenzaprine 5 mg tablet 5 mg PO BID PRN atorvastatin 20 mg tablet 20 mg PO HS omeprazole 40 mg capsule,delayed release(DR/EC) 40 mg PO DAILY Medical Cannabis PO .HS trazodone 50 mg tablet 50 mg PO HS bupropion HCl 100 mg tablet sustained-release 12 hr 100 mg PO DAILY acetaminophen 325 mg Tablet 650 mg PO Q6H PRN14 Days Qty: 100 0RF oxycodone-acetaminophen 7.5-325 mg tablet 1 tab PO Q4H PRN ketorolac 10 mg tablet 10 mg PO TID 5 Days Qty: 15 0RF ondansetron 4 mg tablet,disintegrating 4 mg PO Q8H PRN (Reason: nausea and vomiting) Qty: 14 0RF pregabalin 100 mg capsule 100 mg PO BID Qty: 60 5RF metoprolol succinate 25 mg tablet extended release 24 hr 25 mg PO BID Qty: 180 3RF glipizide 10 mg tablet extended release 24hr 10 mg PO DAILY Qty: 90 3RF lorazepam 0.5 mg tablet 0.5 mg PO BID PRN (Reason: anxiety) Qty: 60 1RF gemfibrozil 600 mg tablet 600 mg PO BID Qty: 60 10RF sitagliptin phosphate 100 mg tablet 100 mg PO DAILY Qty: 30 11RF Follow Up/Referrals: Mark Gallegos MD [Primary Care Provider] - Stand Alone Forms: [employer] Info Instructions
[2022-08-17 09:40] VITALS: BP 114/78; PULSE 78; TEMP 36; O2SAT 98; BMI 32.3
[2022-08-17 10:05] LABS: Lactate* 1.2 mmol/L (0.5-1.9)
--- NOTE | 2022-08-17 10:05 | CRLHL7_ITS ---
For Patients: As a result of the Century Cures Act, medical imaging exams and procedure reports are released immediately into your electronic medical record. You may view this report before your referring provider. If you have questions, please contact your health care provider. INDICATION: Small-bowel obstruction. Prior ventral hernia repair, vasectomy, and small bowel resection. TECHNIQUE: Abdominal pelvic CT. 120 cc nonionic Isovue-370 administered. COMPARISON: Abdominopelvic CT July 18, 2022. FINDINGS: When compared to the prior CT there has been resolution of the previous identified high grade small bowel obstruction. There are scattered fluid-filled nondistended small bowel loops throughout the abdomen and pelvis. There are postsurgical change from small bowel resection within the right lower quadrant and probable partial distal colonic resection/reanastomosis. Multiple small calcifications within the right middle lobe of the lung likely postinfectious or postinflammatory. The included lung bases are otherwise clear. The liver, pancreas, gallbladder, and adrenal glands are within normal limits. Few calcified splenic granulomas. No splenomegaly. No renal stone, mass, or renal obstruction. Normal caliber abdominal aorta and iliac arteries. Normal inferior vena cava. The urinary bladder, prostate gland, and seminal vesicles are within normal limits. No ascites or lymphadenopathy. Postsurgical change in the anterior abdominal wall from ventral hernia repair and mesh placement. There is thinning of the midline anterior abdominal wall but this is unchanged. Postsurgical change from vasectomy. The included skeleton is negative for acute fractures. Mild spurring of the lower thoracic spine. IMPRESSION: 1. No acute small bowel obstruction. Scattered fluid-filled nondistended small bowel loops throughout the abdomen and pelvis. 2. Postsurgical change from small and/or large bowel resection/reanastomosis right lower quadrant. 3. Postsurgical change from ventral abdominal wall hernia repair with mesh. 4. No acute inflammatory process identified. Please note that all CT scans at this facility use dose modulation, iterative reconstruction, and/or weight-based dosing when appropriate to reduce radiation dose to as low as reasonably achievable. Dictated by Luan Ayers MD @ 08/17/2022 11:27:27 AM (Electronically Signed)
[2022-08-17] MEDS: HYDROmorphone 0.5 mg/0.5 ml inj IVP ×2 (10:08→11:24)
[2022-08-17] MEDS: ONDANSETRON 2 MG/ML inj 4 MG IVP (10:08)
[2022-08-17 10:10] LABS: Basophils Absolute Auto 0.01 K/uL (0.00-0.30); Basophils Percent Auto 0.2 % (0.0-3.0); Eosinophils Absolute Auto 0.15 K/uL (0.00-0.50); Eosinophils Percent Auto 2.5 % (0.0-7.0); Hematocrit 44.6 % (37.0-53.0); Hemoglobin* 14.8 gm/dL (13.5-17.5); Immature Granulocytes Abs Auto 0.01 K/uL (0.00-0.30); Immature Granulocytes Pct Auto 0.2 %; Lymphocytes Absolute Auto 1.56 K/uL (0.90-2.90); Lymphocytes Percent Auto 26.2 % (20-44); Mean Corpuscular HGB Conc 33 gm/dL (32-36); Mean Corpuscular Hemoglobin 30 pg (26-34); Mean Corpuscular Volume 92 fL (80-100); Monocytes Percent Auto 8.6 % (0.0-11.0); Neutrophils Absolute Auto 3.72 K/uL (1.7-7.0); Neutrophils Percent Auto 62.3 % (42.0-72.0); Platelet Count* 332 K/uL (140-440); RDW Coefficient of Variation % 13.8 % (11.5-15.5); Red Blood Count 4.87 m/uL (4.30-5.90); White Blood Count* 5.96 K/uL (4.50-11.00)
[2022-08-17 10:20] LABS: Slide Review Reflex No
[2022-08-17 10:24] LABS: Lipase* 71 U/L (23-300)
[2022-08-17 11:06] VITALS: BP 105/81; PULSE 83; RESP 16; O2SAT 94
[2022-08-17 11:30] VITALS: BP 104/78; PULSE 86; RESP 16; O2SAT 92
[2022-08-17 12:00] VITALS: BP 103/80; PULSE 78; RESP 16; O2SAT 94
[2022-08-17 12:30] VITALS: BP 106/86; PULSE 77; RESP 16; O2SAT 92
[2022-08-17 12:34] LABS: Albumin* 5.1 g/dL (3.3-5.0); Chloride* 109 mmol/L (96-114); Sodium* 143 mmol/L (135-149)
[2022-08-17 12:35] LABS: Potassium* 4.8 mmol/L (3.6-5.1)
[2022-08-17 12:37] LABS: Alanine Aminotransferase* 35 U/L (4-50); Alkaline Phosphatase* 62 U/L (40-150); Aspartate Amino Transferase* 35 U/L (12-35); Bilirubin Total* 0.6 mg/dL (0.1-1.5); Blood Urea Nitrogen* 21 mg/dL (5-24); Carbon Dioxide* 20 mmol/L (20-32); Creatinine* 0.9 mg/dL (0.5-1.5); Est. Creatinine Clearance* 114.67; Estimated Glomerular Filt Rate 106 ml/min; Glucose* 135 mg/dL (60-115); Total Protein* 8.7 g/dL (6.0-8.3)
== END 2022-08-17 12:40 | disposition home or self-care (01) ==
PROVIDERS: Emergency Provider Student in an Organized Health Care Education/Training Program; PCP Family Medicine
DX: R10.9 Unspecified abdominal pain (principal)
CPT/HCPCS: 36415; 74177; 80053; 83605; 83690; 85025; 96374; 96375; 96376; 99283; 99284; J1170; J2405; Q9967

== ENCOUNTER 2023-03-07 09:05 | Outpatient (CLI) | payer BC, SELFPAY | END 2023-03-07 09:06 | disposition home or self-care (01) | LOC: NFLDREF 03-09 08:21 | PROVIDERS: PCP Family Medicine; Referring Provider Family Medicine; Visit Provider Family Medicine | DX: E29.1 Testicular hypofunction (principal) | CPT/HCPCS: 84270; 84402; 84403 ==

== ENCOUNTER 2023-06-28 10:24 | Outpatient (CLI) | payer BC, SELFPAY ==
--- OUTSIDE RECORDS SUMMARY | 2023-06-28 10:32 | XMS_ITS | Continuity of Care Document ---
Author Name Unknown Organization [facility] Address [address] [place] [address] Care Team Providers Care Field Coil Winder Name Role Phone [facility] Unavailable Unav ailable Procedures Procedure Date INJ FORAMEN EPIDURAL L/S INJ FORAMEN EPIDURAL L/S INJ FORAMEN EPIDURAL L/S INJ FORAMEN EPIDURAL L/S Advance Directives Directive Yes / No Effective Date File Name No Information Encounters Encounter Description Practice Location Reason(s) For Visit Diagnoses Date Provider Providers Copied on Encounter [facility], [address] [place] [address], [id number], [facility] No Information [facility]. [address] [place] [address], [id number], . tel:[phone] Referring Provider: Haley Huynh, [address] [place] [address], [id number]. tel:[phone] [facility], [address] [place] [address], [id number], [facility] No Information [facility]. [address] [place] [address], [id number], . tel:[phone] Referring Provider: Haley Huynh, [address] [place] [address], [id number]. tel:[phone] Family History Family Member Type Diagnosis Age At Onset No Information Payers Payer name Insurance type Covered green party ID Authoriza tiblaire(s) Blue Cross Blue Shield OOS BL [id number] Social History Type Description Quantity Date Captured Comments Sex Male Smoking Status No Information Chief Complaint And Reason For Visit No Information Reason For Referral Reason For Referral No Information History Of Present Illness Encounter Date Complaint History Of Prese nt Illness No Information Functional Status Date Functional Assessmen t No Information Instructions Date Instruction Additional Infor mation No Information Assessments Type Assessment Date No Information Patient Care Teams Name Effective Dates (start - stop) Status Members No Information
--- OUTSIDE RECORDS SUMMARY | 2023-06-28 10:32 | XMS_ITS | Continuity of Care Document ---
Author Name Unknown Organization [facility] enter Address [address] [place] [address] 11 [facility] [address] [place] [address] Phone Care Team Providers Care Icing Maker Name Role Phone [facility] Unavailable Unava ilable Procedures Procedure Date INTERLAMINAR LMBR OR SAC RF Lumb/Sacral Single Level BILATERAL Au RF Lumb/Sacral 2nd Level RIGHT RF Lumb/Sacral 2nd Level LEFT RF Lumb/Sacral Single Level BILATERAL Au Facet Jt Inj Lumbar RIGHT Facet Jt Inj Lumbar LEFT Facet Inj Lumbar 2nd Level RIGHT 2022 Facet Inj Lumbar 2nd Level LEFT 023 Facet Jt Inj Lumbar LEFT Facet Jt Inj Lumbar RIGHT Facet Inj Lumbar 2nd Level LEFT 023 Facet Inj Lumbar 2nd Level RIGHT 2022 INJ FORAMEN EPIDURAL L/S INJ FORAMEN EPIDURAL L/S INJ FORAMEN EPIDURAL L/S INJ FORAMEN EPIDURAL L/S INJ FORAMEN EPIDURAL L/S INJ FORAMEN EPIDURAL L/S INJ FORAMEN EPIDURAL L/S Advance Directives Directive Yes / No Effective Date File Name No Information Encounters Encounter Description Practice Location Reason(s) For Visit Diagnoses Date Provider Providers Copied on Encounter [facility], [address] [place] [address] [address], [place], [place], [id number], [place] tel:[phone] [place] [address] No Information 3 [facility]. [address] [place] [address], [id number], [place]. tel:[phone] Referring Provider: Krzysztof Calzada, [address] [place], [address] . tel:[phone] [place] [address], [address] [place] [address], [id number], tel:[phone] [place] [address] No Information 3 [facility]. [address] [place] [address], [id number], [place]. tel:[phone] Referring Provider: Krzysztof Calzada, [address] [place], [address] . tel:[phone] [place] [address], [address] [place] [address], [id number], [place] tel:[phone] [place] [address] No Information 3 [facility]. [address] [place] [address], [id number], [place]. tel:[phone] Referring Provider: Krzysztof Calzada, [address] [place], [address] . tel:[phone] [place] [address], [address] [place] [address], [id number], [place] tel:[phone] [place] [address] No Information 3 [facility]. [address] [place] [address], [id number], [place]. tel:[phone] Referring Provider: Krzysztof Calzada, [address] [place], [address] . tel:[phone] [place] [address], [address] [place] [address], [id number], [place] tel:[phone] [place] [address] No Information 3 [facility]. [address] [place] [address], [id number], . tel:[phone] Referring Provider: Krzysztof Calzada, [address] [place], [address] . tel:[phone] [facility], [address] [place] [address], [id number], tel:[phone] [place] [address] No Information 3 [facility]. [address] [place] [address], [id number], . tel:[phone] Referring Provider: Vivienne Landa, [address] [facility] [place], [address] . tel:[phone] [facility], [address] [place] [address], [id number], tel:[phone] [place] [address] No Information 2 [facility]. [address] [place] [address], [id number], [place]. tel:[phone] Referring Provider: Krzysztof Calzada, [address] [place], [address] . tel:[phone] [facility], [address] [place] [address], [id number], tel:[phone] [place] [address] No Information 2 [facility]. [address] [place] [address], [id number], . tel:[phone] Referring Provider: Vivienne Landa, [address] [place], [address] . tel:[phone] Family History Family Member Type Diagnosis Age At Onset No Information Payers Payer name Insurance type Covered republican ID Mindaa jeremy(s) Blue Cross Blue Shield OOS BL [id number] Social History Type Description Quantity Date Captured [...]
--- OUTSIDE RECORDS SUMMARY | 2023-06-28 10:32 | XMS_ITS | Continuity of Care Document ---
Author Name Unknown Organization [facility] Address [address] [place] [address] Care Team Providers Care Records Coordinator Name Role Phone Jeison Guillermo CRNA Unavailable Unavailable Procedures Procedure Date Percutaneous Image guided injection, dra palmer, or Percutaneous Image guided destruction pr ocedures B Percutaneous Image guided destruction pr ocedures B Percutaneous Image guided destruction pr ocedures B Percutaneous Image guided injection, amadou inaanthony, or Percutaneous Image guided injection, amadou inage, or Percutaneous Image guided injection, amadou inage, or Percutaneous Image guided injection, inaanthony, or ANESTH PERC IMG DX SP PROC ANESTH PERC IMG DX SP PROC Advance Directives Directive Yes / No Effective Date File Name No Information Encounters Encounter Description Practice Location Reason(s) For Visit Diagnoses Date Provider Providers Copied on Encounter [facility], [address] [place], [place], [id number], [facility] No Information 3 [facility]. [address] [place], [place], [id number] , . [phone] Referring Provider: Krzysztof Calzada, [address] [place], [address] . tel:[phone] [facility], [address] [place], [place], [id number], [facility] No Information 3 Judah Max. [address], [facility], [place], [place], [id number] , [place]. tel: [phone] Referring Provider: Krzysztof Calzada, [address] [place] [address] [place], [address] . tel:[phone] [facility], [address] [place], [id number], [facility] No Information 3 Judah Max. [address], [facility], [place], [place], [id number] , [place]. tel:[phone] Referring Provider: Krzysztof Calzada, [address] [place] [address] [place], [address] . [phone] [facility], [facility] [address] [place], [id number], [facility] No Information 3 [facility] Max. [address], [place], [place], [id number] , [place]. tel:[phone] Referring Provider: Krzysztof Calazda, [facility] [place], [address] . tel:[phone] [facility], [facility] [address] [place], [id number], [facility] No Information 3 Judah Max. [address], [facility], [place], [place], [id number] , [place]. tel:[phone] Referring Provider: Krzysztof Calzada, [address] [place], [place] [address] [place], [address] . tel:[phone] [facility], [facility] [address] [place], [id number], [facility] No Information 2 [facility] Max. [address], [facility], [place], [place], [id number] , [place]. tel:[phone] Referring Provider: Krzysztof Calzada, [address] [place] [address] [place], [address] . [phone] [facility], [address], [place], [place], [id number], [facility] No Information 2 Judah Max. [address], [facility], [place], [place], [id number] , . tel: [phone] Referring Provider: Vivienne Landa, [address] [place] [address] [place], [address] . tel:[phone] [facility], [address] [place], [place], [id number], [facility] No Information 2 Naomy Spence. [address], [place], [place], [id number] , . tel: [phone] Referring Provider: Haley Huynh, [address] [place] [address] [facility] [place], [address] . tel:[phone] [facility], [address] [place], [place], [id number], [facility] No Information 1 Buck Mccallum . [facility] [address], [facility], [place], [place], [id number] , . tel: [phone] Referring Provider: Haley Huynh, [address] [place] [address] [place] [facility] [place], [address] . tel:[phone] [facility], [facility] [address] [place], [place], [id number], [facility] No Information 0 Larry De Leon. [address], [facility], [place], [place], [id number] , . tel: [phone] Referring Provider: Vivienne Landa, [address] [place] [address] [place], [address] . tel:[phone] Family History Family Member Type Diagnosis Age At Onset No Information Payers Payer name Insurance type Covered alliance party ID Sam luna(s) Blue Cross Blue Shield OOS [id number] Social History Type Description Quantity Date Captured [...]
--- OUTSIDE RECORDS SUMMARY | 2023-06-28 10:33 | XMS_ITS | Continuity of Care Document ---
Author Name Unknown Organization [facility] nenita Address [address] [facility] [place] [address] Phone Care Team Providers Care Environmental Studies Faculty Member Name Role Phone Krzysztof Calzada MD Unavailable Unavailable Allergies, Adverse Reactions, Alerts Substance Reaction Status Criticality No Known Allergies Active No Inform ation Medications Medication Instructions Dosage Effective Dates (start - stop) Status Comments oxycodone 10 mg tablet take 1 tablet by oral route every 4 - 6 hours as needed , max 4/day - Active trazodone 100 mg tablet take 1 tablet by oral route every day after meals as needed 100 MG - Active amitriptyline 25 mg tablet take 1 tablet by oral route every day at bedtime 25 MG - Active glipizide 10 mg tablet take 1 tablet by oral route every day before a meal 10 MG - Active Januvia 100 mg tablet take 1 tablet by oral route every day 100 MG - Active Lyrica 100 mg capsule take 1 capsule by oral route 2 times every day 100 MG - Active medical cannabis ORAL - Active atorvastatin 20 mg tablet take 1 tablet by oral route every day 20 MG - Active gemfibrozil 600 mg tablet take 1 tablet by oral route 2 times every day 30 minutes before morning and evening meal 600 MG - Active amitriptyline 10 mg tablet take 1 tablet by oral route every day at bedtime, MR X 1 - No Longer Active Procedures Procedure Date INTERLAMINAR LMBR OR SAC OR CAUDAL Psych Dx Eval PT EVAL MOD COMPLEX 30 MIN OFFICE/OUTPATIENT VISIT, EST Drug Urine Toxology With Chromatography Drug test def 8-14 classes OFFICE VISIT, EST TELEMEDICINE OFFICE/OUTPATIENT VISIT, EST RF Lumb/Sacral Single Level BILATERAL Au RF Lumb/Sacral 2nd Level RIGHT RF Lumb/Sacral 2nd Level LEFT OFFICE VISIT, EST TELEMEDICINE OFFICE/OUTPATIENT VISIT, EST No Charge For Visit Per Prov Facet Jt In Or MBB j Lumbar BILATERAL Ju Facet Inj Or MBB Lumbar 2nd Level BILATE RAL Drug test def 22+ classes Drug Urine Toxology With Chromatography OFFICE/OUTPATIENT VISIT, EST Facet Jt In Or MBB j Lumbar BILATERAL Ju Facet Inj Or MBB Lumbar 2nd Level BILATE RAL OFFICE/OUTPATIENT VISIT, EST INJ FORAMEN EPIDURAL L/S BILATERAL Foll-up eval q3mo opiod tx OFFICE VISIT, EST TELEMEDICINE INJ FORAMEN EPIDURAL L/S BILATERAL Foll-up eval q3mo opiod tx OFFICE VISIT, EST TELEMEDICINE Foll-up eval q3mo opiod tx OFFICE VISIT, EST TELEMEDICINE Drug Urine Toxology With Chromatography Drug test def 1-7 classes Foll-up eval q3mo opiod tx OFFICE/OUTPATIENT VISIT, EST INJ FORAMEN EPIDURAL L/S BILATERAL Foll-up eval q3mo opiod tx OFFICE VISIT, EST TELEMEDICINE Foll-up eval q3mo opiod tx OFFICE VISIT, EST TELEMEDICINE Foll-up eval q3mo opiod tx OFFICE VISIT, EST TELEMEDICINE Foll-up eval q3mo opiod tx OFFICE VISIT, EST TELEMEDICINE INJ FORAMEN EPIDURAL L/S BILATERAL Foll-up eval q3mo opiod tx OFFICE VISIT, EST TELEMEDICINE Foll-up eval q3mo opiod tx OFFICE VISIT, EST TELEMEDICINE Drug Urine Toxology With Chromatography Drug test def 8-14 classes Foll-up eval q3mo opiod tx OFFICE/OUTPATIENT VISIT, EST Foll-up eval q3mo opiod tx OFFICE VISIT, EST TELEMEDICINE Foll-up eval q3mo opiod tx OFFICE VISIT, EST TELEMEDICINE Foll-up eval q3mo opiod tx OFFICE VISIT, EST TELEMEDICINE INJ FORAMEN EPIDURAL L/S BILATERAL Foll-up eval q3mo opiod tx OFFICE VISIT, EST TELEMEDICINE Drug Urine Toxology With Chromatography Drug test def 8-14 classes Foll-up eval q3mo opiod tx OFFICE/OUTPATIENT VISIT, EST Substance Interv 15-30mn Foll-up eval q3mo opiod tx OFFICE/OUTPATIENT VISIT, EST Foll-up eval q3mo opiod tx OFFICE VISIT, EST TELEMEDICINE Foll-up eval q3mo opiod tx OFFICE VISIT, EST TELEMEDICINE Foll-up eval q3mo opiod tx OFFICE/OUTPATIENT VISIT, EST Foll-up eval q3mo opiod tx OFFICE VISIT, EST TELEMEDICINE Drug Urine Toxology With Chromatography Aug-06-2021 Drug test def 8-14 classes ROUTINE BLOOD DRAW Foll-up eval q3mo opiod tx OFFICE VISIT, EST TELEMEDICINE Foll-up eval q3mo opiod tx OFFICE VISIT, EST TELEMEDICINE Foll-up eval q3mo opiod tx OFFICE VISIT, EST TELEMEDICINE INJ FORAMEN EPIDURAL L/S BILATERAL Foll-up eval q3mo opiod tx OFFICE VISIT, EST TELEMEDICINE Foll-up eval q3mo opiod tx OFFICE VISIT, EST TELEMEDICINE Foll-up eval q3mo opiod tx OFFICE VISIT, EST TELEMEDICINE Foll-up eval q3mo opiod tx OFFICE VISIT, EST TELEMEDICINE Foll-up eval q3mo opiod tx OFFICE VISIT, EST TELEMEDICINE Foll-up eval q3mo opiod tx OFFICE VISIT, EST TELEMEDICINE Foll-up eval q3mo opiod tx OFFICE VISIT, EST TELEMEDICINE Foll-up eval q3mo opiod tx OFFICE VISIT, EST TELEMEDICINE Foll-up eval q3mo opiod tx OFFICE VISIT, EST TELEMEDICINE Foll-up eval q3mo opiod tx OFFICE VISIT, EST TELEMEDICINE Foll-up eval q3mo opiod tx OFFICE VISIT, EST TELEMEDICINE OFFICE VISIT, EST TELEMEDICINE Foll-up eval q3mo opiod tx SM JOINT DRAIN/INJECT, JOINT/BURSA WITH ULTRASOUND Foll-up eval q3mo opiod tx OFFICE VISIT, EST TELEMEDICINE Foll-up eval q3mo opiod tx OFFICE VISIT, EST TELEMEDICINE Apr-15-20 20 Foll-up eval q3mo opiod tx OFFICE VISIT, EST TELEMEDICINE 20 Foll-up eval q3mo opiod tx OFFICE/OUTPATIENT VISIT, EST Drug test def 22+ classes Drug Urine Toxology With Chromatography OFFICE/OUTPATIENT VISIT, NEW PT-FOCUSED HLTH RISK ASSMT Advance Directives Directive Yes / No Effective Date File Name No Information Encounters Encounter Description Practice Location Reason(s) For Visit Diagnoses Date Provider Providers Copied on Encounter [facility], [address] [place] [address], [id number] , [place] tel:[phone] [facility] Radiculopath y, lumbar region 3 Elsi Blankenship. [address] [place] [address], [id number], [place]. tel:[phone] Referring Provider: Krzysztof Yeh, [address] [place] [address], [id number]. tel:[phone] Psych Dx Eval [facility], [address] [place] [address], [id number] , [place] tel:[phone] Telehealth Pain disorder with related psychologica l factorsMajor Depressive Disorder, Single episode, In full remission 3 Janee Loco. [address] [place] [address], [id number], [place]. tel:[phone] [facility], [address] [place] [address], [id number] , [place] tel:[phone] [facility] [place] lumbago (chief complaint) Radiculopath y, lumbar region 3 Faustino Benedict. [address] [place] [address], [id number], [place]. tel:[phone] Referring Provider: Krzysztof Yeh, [address] [place] [address], [id number]. tel:[phone] OFFICE/OUTPAT IENT VISIT, EST [facility], [address] [place] [address], [id number] , [place] tel:[phone] [facility] low back pain (chief complaint) DepressionOt her muscle spasmFibromy algiaLong term (current) use of opiate analgesicOth er intermodal customer service (current) drug therapyEncou nter for therapeutic drug level monitoringRa diculopathy, lumbar region 0 3 Nyongesa Mariluz. [address], [id number], [place]. tel:[phone] Referring Provider: Krzysztof Yeh, [address] [place], [address]. tel:[phone] [facility], [address] [place] [address], [id number] , [place] tel:[phone] [facility] No Information 3 Nyongesa Mariluz. [address], [id number], [place]. tel:[phone] OFFICE VISIT, EST TELEMEDICINE [facility], [address] [place] [address], [id number] , [place] tel:[phone] [facility] Fibromyalgia (chief complaint) DepressionOt her spondylosis, lumbar regionOther muscle spasmFibromy algiaLong term (current) use of opiate analgesicOth er intermodal customer service (current) drug therapy Oct-0 3 Nyongesa Mariluz. [address], [id number], [place]. tel:[phone] OFFICE/OUTPAT IENT VISIT, EST [facility], [address] [place] [address], [id number] , [place] tel:[phone] [facility] Fibromyalgia (chief complaint) DepressionOt her spondylosis, lumbar regionOther muscle spasmFibromy algiaLong term (current) use of opiate analgesicOth er assisted (current) drug therapy Mar-0 6 3 Nyongesa Mariluz. [address], [id number], [place]. tel:[phone] Referring Provider: Vazquez Schneider, [address] [facility] [address], [place], [address]. [phone] [facility], [address] [place], [place], [id number] , [place] tel:[phone] [facility] Other spondylosis, lumbar region 3 Elsi Blankenship. [address] [place], [id number], [place]. [phone] Referring Provider: Vazquez Schneider, [address] [facility] [address], [place], [address]. [phone] OFFICE VISIT, EST TELEMEDICINE [facility], [address] [place] [address], [id number] , [place] tel:[phone] [facility] Fibromyalgia (chief complaint) DepressionOt her spondylosis, lumbar regionRadicu lopathy, lumbar regionOther muscle spasmFibromy algiaLong term (current) use of opiate analgesicOth er intermodal customer service (current) drug therapy 3 Nyongesa Mariluz. [address], [id number], [place]. [phone] OFFICE/OUTPAT IENT VISIT, EST [facility], [address] [place] [address], [id number] , [place] tel:[phone] [facility] Fibromyalgia (chief complaint) DepressionOt her spondylosis, lumbar regionRadicu lopathy, lumbar regionOther muscle spasmFibromy algiaEncount er for therapeutic drug level monitoringLo ng term (current) use of opiate analgesicOth er assisted (current) drug therapy 3 Nyongesa Mariluz. [address] [facility] [address], [id number], [place]. [phone] Referring Provider: Vazquez Schneider, [address] [facility] [address] [facility] [address], [place], [address]. [phone] [facility], [address] [place], [place], [id number] , [place] tel:[phone] [facility] No Information 3 Hakan Mcgraw. [address] [facility] [address], [place], [place], [id number], [place]. tel:[phone] [facility], [address] [place], [place], [id number] , [place] tel:[phone] [facility] [place] Other spondylosis, lumbar region 3 Hakan Mcgraw. [address] [facility] [address], [place], [place], [id number], [place]. tel:[phone] [facility], [address] [place] [address], [id number] , [place] [phone] [place] [facility] [place] Other spondylosis, lumbar region 3 Elsi Blankenship. [address] [place], [place], [id number], [place]. tel:[phone] Referring Provider: Vazquez Schneider, [address], [address]. tel:[phone] [facility], [address] [place] [address], [id number] , [place] [phone] [facility] No Information 3 Hakan Mcgraw. [address], [id number], [place]. tel:[phone] OFFICE/OUTPAT IENT VISIT, EST [facility], [address] [place] [address], [id number] , [place] [phone] [facility] Fibromyalgia (chief complaint) DepressionOt her spondylosis, lumbar regionOther muscle spasmFibromy algiaLong term (current) use of opiate analgesicOth er assisted (current) drug therapyRadic ulopathy, lumbar regionEncoun ter for therapeutic drug level monitoring 3 Hakan Mcgraw. [address] [facility] [address], [place], [id number], [place]. tel:[phone] Referring Provider: Vazquez Schneider, [address] [facility] [address], [place], [address]. [phone] [facility], [address] [place], [place], [id number] , [place] [phone] [facility] Other spondylosis, lumbar region 3 Elsi Blankenship. [address] [place], [place], [id number], [place]. [phone] Referring Provider: Vazquez Schneider, [address] [facility] [address], [place], [address]. [phone] OFFICE/OUTPAT IENT VISIT, EST [facility], [address] [place] [address], [id number] , [place] tel:[phone] [facility] Fibromyalgia (chief complaint) DepressionOt her muscle spasmFibromy algiaLong term (current) use of opiate analgesicOth er intermodal customer service (current) drug therapyOther spondylosis, lumbar region 3 Hakan Mcgraw. [address] [place] [address] [address], [place], [place], [id number], [place]. [phone] Referring Provider: Vazquez Schneider, [address] [place] [address] [address], [place], [address]. [phone] [facility], [address] [place] [address], [id number] , [place] [phone] [facility] Radiculopath y, lumbar region Oct- 3 Elsi Blankenship. [address] [place], [place], [id number], [place]. tel:[phone] Referring Provider: Vazquez Schneider, [facility]5 [facility] [address], [place], [address]. tel:[phone] OFFICE VISIT, EST TELEMEDICINE [facility], [address] [place] [address], [id number] , [place] tel:[phone] [facility] Fibromyalgia (chief complaint) DepressionRa diculopathy, lumbar regionOther muscle spasmFibromy algiaLong term (current) use of opiate analgesicOth er assisted (current) drug therapy 3 Hakan Mcgraw. [address] [facility] [address], [place], [id number], [place]. tel:[phone] [facility], [address] [place] [address], [id number] , [place] tel:[phone] [place] [facility] [place] Radiculopath y, lumbar region 3 Cordell Palafox. [address] [place] [address], [id number], [place]. tel:[phone] Referring Provider: Vazquez Schneider, [address] [facility] [address] [facility] [address], [place], [address]. tel:[phone] OFFICE VISIT, EST TELEMEDICINE [facility], [address] [place] [address], [id number] , [place] [phone] [facility] Fibromyalgia (chief complaint) DepressionRa diculopathy, lumbar regionOther muscle spasmFibromy algiaLong term (current) use of opiate analgesicOth er intermodal customer service (current) drug therapy 3 Thaddeus Mariluz. [address], [id number], [place]. tel:[phone] Referring Provider: Krzysztof Yeh, [address] [place] [address], [address]. tel:[phone] OFFICE VISIT, EST TELEMEDICINE [facility], [address] [place] [address], [id number] , [place] tel:[phone] [facility] Fibromyalgia (chief complaint) DepressionRa diculopathy, lumbar regionFibrom yalgiaOther muscle spasmLong term (current) use of opiate analgesicOth er intermodal customer service (current) drug therapy 3 Hakan Mcgraw. [address], [id number], [place]. tel:[phone] [facility], [address] [place] [address], [id number] , [place] [phone] [facility] [place] No Information 3 Hakan Mcgraw. [address], [place], [place], [id number], [place]. tel:[phone] OFFICE/OUTPAT IENT VISIT, [facility], [address] [place] [address], [id number] , [place] [phone] [facility] Fibromyalgia (chief complaint) DepressionIn somnia, unspecifiedO ther acute postprocedur al painPain in left shoulderRadi culopathy, lumbar regionOther muscle spasmPlantar fascial fibromatosis Fibromyalgia longterm (current) use of opiate analgesic 3 Hakan Mcgraw. [address] [facility] [address], [place], [place], [id number], [place]. tel:[phone] Referring Provider: Vazquez Schneider, [address] [facility] [address], [place], [address]. tel:[phone] [facility], [address] [place] [address], [id number] , [place] [phone] [place] [facility] [place] Radiculopath y, lumbar region Jun- 2 Elsi Blankenship. [address] [place] [address], [id number], [place]. tel:[phone] Referring Provider: Vazquez Schneider, [address] [facility] [address], [place], [address]. 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 [address] [place], [place], [id number], [place]. tel:[phone] Referring Provider: Krzysztof Yeh, [address] [place], [address]. 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 [address] [facility] [address], [place], [id number], [place]. tel:[phone] Referring Provider: Krzysztof Yeh, [address] [place] [address], [address]. tel:[phone] OFFICE VISIT, EST TELEMEDICINE [facility], [address] [place] [address], [id number] , [place] [phone] [facility] Fibromyalgia (chief complaint) DepressionIn somnia, unspecifiedO ther acute postprocedur al painPain in left shoulderRadi culopathy, lumbar regionOther muscle spasmPlantar fascial fibromatosis Fibromyalgia longterm (current) use of opiate analgesic Mar-2 2 Nyongesa Mariluz. [address] [facility] [address], [id number], [place]. tel:[phone] OFFICE VISIT, EST TELEMEDICINE [facility], [address] [place] [address], [id number] , [place] [phone] [facility] Fibromyalgia (chief complaint) DepressionIn somnia, unspecifiedO ther acute postprocedur al painPain in left shoulderRadi culopathy, lumbar regionOther muscle spasmPlantar fascial fibromatosis Fibromyalgia longterm (current) use of opiate analgesic Feb-2 2 Nyongesa Mariluz. [address] [facility] [address], [id number], [place]. tel:[phone] [facility], [address] [place] [address], [id number] , [place] [phone] [facility] Radiculopath y, lumbar region Feb-0 2 Cordell Palafox. [address] [place] [address], [id number], [place]. tel:[phone] Referring Provider: Vazquez Schneider, [address], [address]. 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 [address], [id number], [place]. tel:[phone] Referring Provider: Krzysztof Yeh, [address] [place] [address], [address]. 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 [address], [id number], [place]. tel:[phone] Referring Provider: Krzysztof Yeh, [address] [place] [address], [address]. tel:[phone] [facility], [address] [place] [address], [id number] , [place] tel:[phone] [facility] No Information 2 Nyongesa Mariluz. [address], [id number], [place]. tel:[phone] OFFICE/OUTPAT IENT VISIT, [facility], [address] [place], [place], [id number] , [place] tel:[phone] [facility] Fibromyalgia (chief complaint) DepressionIn somnia, unspecifiedO ther acute postprocedur al painPain in left shoulderRadi culopathy, lumbar regionOther muscle spasmPlantar fascial fibromatosis Fibromyalgia longterm (current) use of opiate analgesic November- 2 Nyongesa Mariluz. [address] [facility] [address], [place], [id number], [place]. tel:[phone] Referring Provider: Vazquez Schneider, [address] [facility] [address], [place], [address]. tel:[phone] OFFICE VISIT, [facility], [address] [place] [address], [id number] , [place] tel:[phone] [facility] Fibromyalgia (chief complaint) DepressionIn somnia, unspecifiedO ther acute postprocedur al painPain in left shoulderRadi culopathy, lumbar regionOther muscle spasmPlantar fascial fibromatosis Fibromyalgia longterm (current) use of opiate analgesic Oct- 2 Nyongesa Mariluz. [address] [facility] [address], [place], [id number], [place]. tel:[phone] Referring Provider: Antonio Gallegos, [address], [address]. tel:[phone] OFFICE VISIT, [facility], [address] [place] [address], [id number] , [place] tel:[phone] [facility] Fibromyalgia (chief complaint) DepressionOt her acute postprocedur al painPain in left shoulderRadi culopathy, lumbar regionOther muscle spasmPlantar fascial fibromatosis Fibromyalgia terminal gauger supervisor (current) use of opiate analgesicIns omnia, unspecified Mar-3 2 Nyongesa Mariluz. [address] [facility] [address] [facility] [address], [place], [id number], [place]. tel:[phone] OFFICE VISIT, [facility], [address] [place], [place], [id number] , [place] tel:[phone] [facility] Fibromyalgia (chief complaint) DepressionLo ng term (current) use of opiate analgesicOth er acute postprocedur al painRadiculo eufemia, lumbar regionPain in left shoulderFibr omyalgiaPlan tar fascial fibromatosis Other muscle spasm 2 2 Jennie Shukla. [address] [facility] [address], [place], [place], [id number], [place]. tel:[phone] Referring Provider: Krzysztof Yeh, [address] [place] [address], [address]. tel:[phone] [facility], [address] [place] [address], [id number] , [place] tel:[phone] [facility] [place] Radiculopath y, lumbar region 0 2 Lino De Leon. [address] [place] [address], [id number], [place]. tel:[phone] Referring Provider: Vazquez Schneider, [address] [place] [address] [address] [facility] [address], [place], [address]. tel:[phone] OFFICE VISIT, EST TELEMEDICINE [facility], [address] [place] [address], [id number] , [place] tel:[phone] [facility] [facility] Fibromyalgia (chief complaint) DepressionLo ng term (current) use of opiate analgesicOst eoarthritisO ther acute postprocedur al painRadiculo eufemia, lumbar regionPain in left shoulderPlan tar fascial fibromatosis Fibromyalgia Other muscle spasm 2 Nyongesa Mariluz. [address] [facility] [address] [facility] [address], [place], [place], [id number], [place]. tel:[phone] Referring Provider: Antonio Gallegos, [address], [place], [address]. tel:[phone] [facility], [address] [place] [address], [id number] , [place] tel:[phone] [facility] No Information 1 Nyongesa Mariluz. [address] [facility] [address], [place], [place], [id number], [place]. tel:[phone] OFFICE/OUTPAT IENT VISIT, EST [facility], [address], [place], [id number] , [place] tel:[phone] [facility] Fibromyalgia (chief complaint) DepressionLo ng term (current) use of opiate analgesicOst eoarthritisO ther acute postprocedur al painRadiculo eufemia, lumbar regionPain in left shoulderPlan tar fascial fibromatosis Fibromyalgia Encounter for therapeutic drug level monitoringOt her muscle spasm 1 Hakan Mcgraw. [address] [facility] [address], [place], [place], [id number], [place]. tel:[phone] Referring Provider: Vazquez Schneider, [address] [place] [address] [address] [facility] [address], [place], [address]. tel:[phone] OFFICE/OUTPAT IENT VISIT, [facility], [address] [place] [address], [id number] , [place] tel:[phone] [facility] Fibromyalgia (chief complaint) DepressionLo ng term (current) use of opiate analgesicOst eoarthritisO ther acute postprocedur al painRadiculo eufemia, lumbar regionPain in left shoulderPlan tar fascial fibromatosis Fibromyalgia Encounter for screening for other disorder 1 Hakan Mcgraw. [address] [facility] [address] [facility] [address], [place], [id number], [place]. tel:[phone] Referring Provider: Vazquez Schneider, [address] [place] [address] [address], [place], [address]. tel:[phone] OFFICE VISIT, EST TELEMEDICINE [facility], [address] [place], [place], [id number] , [place] tel:[phone] [facility] Fibromyalgia (chief complaint) DepressionLo ng term (current) use of opiate analgesicOst eoarthritisO ther acute postprocedur al painRadiculo eufemia, lumbar regionPain in left shoulderPlan tar fascial fibromatosis Fibromyalgia 1 Hakan Mcgraw. [address] [facility] [address], [place], [id number], [place]. tel:[phone] OFFICE VISIT, [facility], [address] [place] [address], [id number] , [place] tel:[phone] [facility] Fibromyalgia (chief complaint) DepressionLo ng term (current) use of opiate analgesicOst eoarthritisO ther acute postprocedur al pain 8 [address], [place], [address]. tel:[phone] Referring Provider: Krzysztof Yeh, [address] [place] [address], [address]. tel:[phone] OFFICE/OUTPAT IENT VISIT, [facility], [address] [place] [address], [id number] , [place] tel:[phone] [facility] Fibromyalgia (chief complaint) DepressionFi bromyalgiaPa in in left shoulderLong term (current) use of opiate analgesicPla ntar fascial fibromatosis Radiculopath y, lumbar regionOsteoa rthritis Sep-3 0-202 1 Nyongesa Mariluz. [address] [facility] [address], [place], [id number], [place]. tel:[phone] Referring Provider: Vazquez Schneider, [address] [facility] [address], [place], [address]. 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 [address] [facility] [address], [place], [id number], [place]. tel:[phone] Referring Provider: Krzysztof Yeh, [address] [place] [address], [address]. tel:[phone] [facility], [address] [place] [address], [id number] , [place] tel:[phone] [facility] [place] No Information 1 Nyongesa Mariluz. [address], [id number], [place]. tel:[phone] Referring Provider: Krzysztof Yeh, [address] [place] [address], [address]. tel:[phone] [facility], [address] [place] [address], [id number] , [place] [phone] [facility] No Information 1 Nyongesa Mariluz. [address], [id number], [place]. tel:[phone] Referring Provider: Vazquez Schneider, [address], [address]. 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 [address], [id number], [place]. tel:[phone] Referring Provider: Krzyszotf Yeh, [address] [place] [address], [address]. tel:[phone] OFFICE VISIT, EST TELEMEDICINE [facility], [address] [place] [address], [id number] , [place] tel:[phone] [facility] Fibromyalgia (chief complaint) DepressionFi bromyalgiaPa in in left shoulderPlan tar fascial fibromatosis longterm (current) use of opiate analgesicRad iculopathy, lumbar regionOsteoa rthritis 1 Nyongesa Mariluz. [address] [facility] [address], [place], [id number], [place]. tel:[phone] Referring Provider: Krzysztof Yeh, [address] [place] [address], [address]. tel:[phone] OFFICE VISIT, EST TELEMEDICINE [facility], [address] [place] [address], [id number] , [place] [phone] [facility] [place] Fibromyalgia (chief complaint) DepressionFi bromyalgiaPa in in left shoulderPlan tar fascial fibromatosis longterm (current) use of opiate analgesicRad iculopathy, lumbar regionOsteoa rthritis Jose Maria-0 1 Nyongesa Mariluz. [address], [id number], [place]. tel:[phone] Referring Provider: Krzysztof Yeh, [address] [place] [address], [address]. tel:[phone] [facility], [address] [place] [address], [id number] , [place] tel:[phone] [facility] [place] Radiculopath y, lumbar region November-2 1 Lino De Leon. [address] [place] [address], [id number], [place]. tel:[phone] Referring Provider: Vazquez Schneider, [address] [address], [place], [address]. tel:[phone] OFFICE VISIT, [facility] TELEMEDICINE [facility], [address] [place] [address], [id number] , [place] tel:[phone] [facility] Fibromyalgia (chief complaint) Fibromyalgia Pain in left shoulderPlan tar fascial fibromatosis DepressionLo ng term (current) use of opiate analgesicRad iculopathy, lumbar regionOsteoa rthritis November-0 1 Nyongesa Mariluz. [address], [id number], [place]. tel:[phone] Referring Provider: Krzysztof Yeh, [address] [place] [address], [address]. tel:[phone] OFFICE VISIT, EST TELEMEDICINE [facility], [address] [place] [address], [id number] , [place] [phone] [facility] [place] Fibromyalgia (chief complaint) Fibromyalgia Pain in left shoulderPlan tar fascial fibromatosis DepressionLo ng term (current) use of opiate analgesicRad iculopathy, lumbar regionOsteoa rthritis Apr-0 8202 1 Nyongesa Mariluz. [address] [facility] [address] [facility] [address], [place], [id number], [place]. tel:[phone] Referring Provider: Krzysztof Yeh, [address] [place] [address], [address]. tel:[phone] OFFICE VISIT, [facility], [address] [place] [address], [id number] , [place] [phone] [facility] (chief complaint) Fibromyalgia Pain in left shoulderPlan tar fascial fibromatosis DepressionLo ng term (current) use of opiate analgesicRad iculopathy, lumbar regionOsteoa rthritis Mar-0 9-202 1 Nyongesa Mariluz. [address], [id number], [place]. tel:[phone] Referring Provider: Krzysztof Yeh, [address] [place] [address], [address]. tel:[phone] OFFICE VISIT, [facility], [address] [place] [address], [id number] , [place] tel:[phone] [facility] Fibromyalgia (chief complaint) Fibromyalgia Pain in left shoulderPlan tar fascial fibromatosis DepressionLo ng term (current) use of opiate analgesicRad iculopathy, lumbar regionOsteoa rthritis Feb-0 4 1 Nyongesa Mariluz. [address], [id number], [place]. tel:[phone] Referring Provider: Krzysztof Yeh, [address] [place] [address], [address]. tel:[phone] OFFICE VISIT, EST [facility], [address] [place] [address], [id number] , [place] tel:[phone] [facility] Fibromyalgia (chief complaint) Fibromyalgia Pain in left shoulderPlan tar fascial fibromatosis DepressionLo ng term (current) use of opiate analgesicRad iculopathy, lumbar regionOsteoa rthritis Macario-0 7-202 1 Nyongesa Mariluz. [address] [facility] [address], [place], [id number], [place]. tel:[phone] Referring Provider: Krzysztof Yeh, [address] [place] [address], [address]. tel:[phone] OFFICE VISIT, EST TELEMEDICINE [facility], [address] [place] [address], [id number] , [place] [phone] [facility] Fibromyalgia (chief complaint)low back pain (chief complaint)rig ht shoulder pain (chief complaint) Chronic pain syndromeFibr omyalgiaPain in left shoulderPlan tar fascial fibromatosis DepressionLo ng term (current) use of opiate analgesicRad iculopathy, lumbar regionOsteoa rthritis Jun-0 9-202 0 Nyongesa Mariluz. [address] [facility] [address], [place], [id number], [place]. tel:[phone] Referring Provider: Krzysztof Yeh, [address] [place] [address], [address]. tel:[phone] OFFICE VISIT, EST TELEMEDICINE [facility], [address] [place] [address], [id number] , [place] tel:[phone] [facility] Fibromyalgia (chief complaint) Chronic pain syndromeFibr omyalgiaPain in left shoulderPlan tar fascial fibromatosis DepressionLo ng term (current) use of opiate analgesicRad iculopathy, lumbar region Nov-1 0-202 0 Nyongesa Mariluz. [address] [facility] [address], [place], [id number], [place]. tel:[phone] Referring Provider: Krzysztof Yeh, [address] [place] [address], [address]. tel:[phone] OFFICE VISIT, EST TELEMEDICINE [facility], [address] [place] [address], [id number] , [place] tel:[phone] [facility] [place] Fibromyalgia (chief complaint) Chronic pain syndromeFibr omyalgiaPain in left shoulderPlan tar fascial fibromatosis DepressionLo ng term (current) use of opiate analgesicRad iculopathy, lumbar region Oct-0 7-202 0 Nyongesa Mariluz. [address] [facility] [address], [place], [id number], [place]. tel:[phone] Referring Provider: Krzysztof Yeh, [address] [place], [address]. tel:[phone] OFFICE VISIT, EST TELEMEDICINE [facility], [address] [place] [address], [id number] , [place] tel:[phone] [facility] Fibromyalgia (chief complaint) Chronic pain syndromeFibr omyalgiaPain in left shoulderPlan tar fascial fibromatosis DepressionLo ng term (current) use of opiate analgesicRad iculopathy, lumbar region Sep-0 8-202 0 Nyongesa Mariluz. [address] [facility] [address], [place], [id number], [place]. tel:[phone] Referring Provider: Krzysztof Yeh, [address] [place], [address]. tel:[phone] [facility], [address] [place] [address], [id number] , [place] tel:[phone] [facility] Radiculopath y, lumbar region Feb- 0 Cordell Palafox. [address] [place], [place], [id number], [place]. tel:[phone] Referring Provider: Vazquez Schneider, 1455 [facility] [address], [place], [address]. tel:[phone] OFFICE VISIT, EST TELEMEDICINE [facility], [address] [place] [address], [id number] , [place] tel:[phone] [facility] Fibromyalgia (chief complaint) Chronic pain syndromeFibr omyalgiaPain in left shoulderPlan tar fascial fibromatosis DepressionLo ng term (current) use of opiate analgesicRad iculopathy, lumbar region 0 Nyongesa Mariluz. [address] [facility] [address], [place], [id number], [place]. tel:[phone] Referring Provider: Krzysztof Yeh, [address] [place] [address], [address]. tel:[phone] OFFICE VISIT, EST TELEMEDICINE [facility], [address] [place] [address], [id number] , [place] tel:[phone] [facility] Fibromyalgia (chief complaint) Chronic pain syndromeFibr omyalgiaPain in left shoulderPlan tar fascial fibromatosis DepressionLo ng term (current) use of opiate analgesicLow back pain 0 Nyongesa Mariluz. [address] [facility] [address] [facility] [address], [place], [id number], [place]. tel:[phone] Referring Provider: Krzysztof Yeh, [address] [place] [address], [address]. tel:[phone] OFFICE VISIT, EST TELEMEDICINE [facility], [address] [place] [address], [id number] , [place] tel:[phone] [facility] Fibromyalgia (chief complaint) Chronic pain syndromeFibr omyalgiaPain in left shoulderPlan tar fascial fibromatosis DepressionLo ng term (current) use of opiate analgesicLow back pain 0 Jennie Shukla. 1455 [facility] [address], [id number], [place]. tel:[phone] Referring Provider: Krzysztof Yeh, [address] [place] [address], [address]. tel:[phone] [facility], [address] [place] [address], [id number] , [place] tel:[phone] [facility] Unspecified osteoarthrit is, unspecified site 0 Vick Goss. [facility], [address] [facility] [address], [place], [address], [place]. tel:[phone] Referring Provider: Vazquez Schneider, [facility]5 [facility] [address] [place] [address], [address]. tel:[phone] [facility], [address] [place] [address], [id number] , [place] tel:[phone] [facility] Primary generalized (osteo)arthr itis 0 Jennie Shukla. [address] [place] [address], [id number], . 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 [address] [place] [address], [id number], [place]. tel:[phone] Referring Provider: Krzysztof Yeh, [address] [place] [address], [address]. 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 [address] [place] [address], [id number], [place]. tel:[phone] Referring Provider: Krzysztof Yeh, [address] [place] [address], [address]. 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 [address] [facility] [address], [id number], [place]. tel:[phone] Referring Provider: Krzysztof Yeh, [address] [place] [address], [address]. 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 [address], [id number], [place]. tel:[phone] Referring Provider: Krzysztof Yeh, [address] [place] [address], [address]. tel:[phone] OFFICE/OUTPAT IENT VISIT, [facility], [address] [place] [address], [id number] , [place] tel:[phone] [facility] Fibromyalgia (chief complaint) Fibromyalgia Chronic pain syndromeDepr essionInsomn iaOsteoarthr itisPain in left shoulderHead acheCrohn's disease, unspecified, without complication sPlantar fascial fibromatosis Encounter for therapeutic drug level monitoringLo ng term (current) use of opiate analgesic 0 Nyongesa Mariluz. [address] [facility] [address] [facility] [address], [place], [id number], [place]. tel:[phone] Referring Provider: Krzysztof Yeh, [address] [place] [address], [address]. tel:[phone] Family History Family Member Type Diagnosis Age At Onset No Information Payers Payer name Insurance type Covered green party ID Authoriza tion(s) Blue Cross Blue Shield OOS [id number] Social History Type Description Quantity Date Captured Comments Sex Male Smoking Status No Information Chief Complaint And Reason For Visit No Information Reason For Referral Reason For Referral No Information Plan Of Treatment Date Type Action Status Goal Review Allergy List. Due on due Goal Hepatitis C screening. Due o n due Goal PHQ-9. Due on du e Goal Lipid panel. Due on due Goal Update Social History. Due o n due Goal Weight. Due on d ue Goal Height. Due on d ue Goal Unhealthy drug u se screening. Due on due Goal Tobacco Use. Due on due Goal Order Annual PT. Due on due Goal [employer] Paperwork. Due on due Goal BASEBALL INSPECTOR Scanned. Due on due Goal UDT. Due on due Goal Medication Recon ciliation. Due on due Goal AST (SGOT). Due on due Goal OARS. Due on due Goal Creatinine. Due on due Goal ALT (SGPT). Due on due Goal Order Annual PT. Due on due Goal Medication Recon ciliation. Due on due Goal OARS. Due on due Goal Height. Due on d ue Goal Review Allergy List. Due on due Goal PHQ-9. Due on du e Goal BASEBALL INSPECTOR Scanned. Due on due Goal ALT (SGPT). Due on due Goal Unhealthy drug u se screening. Due on due Goal Update Social History. Due o n due Goal Lipid panel. Due on due Goal Tobacco Use. Due on due Goal AST (SGOT). Due on due Goal [employer]IVER Paperwork. Due on due Goal Creatinine. Due on due Goal Weight. Due on d ue Goal UDT. Due on due Goal Hepatitis C screening. Due o n due Goal Height. Due on d ue Goal Review Allergy List. Due on due Goal Hepatitis C screening. Due o n due Goal Tobacco Use. Due on due Goal Lipid panel. Due on due Goal Medication Recon ciliation. Due on due Goal Unhealthy drug u se screening. Due on due Goal PHQ-9. Due on du e Goal Update Social History. Due o n due Goal Weight. Due on d ue Goal Order Annual PT. Due on due Goal OARS. Due on due Goal ALT (SGPT). Due on due Goal [employer]IVER Paperwork. Due on due Goal BASEBALL INSPECTOR Scanned. Due on due Goal UDT. Due on due Goal AST (SGOT). Due on due Goal Creatinine. Due on due Goal Order Annual PT. Due on due Goal Height. Due on d ue Goal PHQ-9. Due on du e Goal Update Social History. Due o n due Goal Weight. Due on d ue Goal Creatinine. Due on due Goal Hepatitis C screening. Due o n due Goal [employer]IVER Paperwork. Due on due Goal ALT (SGPT). Due on due Goal UDT. Due on due Goal OARS. Due on due Goal Medication Recon ciliation. Due on due Goal Tobacco Use. Due on due Goal AST (SGOT). Due on due Goal BASEBALL INSPECTOR Scanned. Due on due Goal Lipid panel. Due on due Goal Unhealthy drug u se screening. Due on due Goal Review Allergy List. Due on due Goal BASEBALL INSPECTOR Scanned. Due on due Goal Hepatitis C screening. Due o n due Goal [employer]IVER Paperwork. Due on due Goal Height. Due on d ue Goal Creatinine. Due on due Goal Weight. Due on d ue Goal UDT. Due on due Goal Update Social History. Due o n due Goal Tobacco Use. Due on due Goal AST (SGOT). Due on due Goal PHQ-9. Due on du e Goal Medication Recon ciliation. Due on due Goal Unhealthy drug u se screening. Due on due Goal OARS. Due on due Goal Order Annual PT. Due on due Goal ALT (SGPT). Due on due Goal Review Allergy List. Due on due Goal Lipid panel. Due on due Goal OARS. Due on due Goal Creatinine. Due on due Goal BASEBALL INSPECTOR Scanned. Due on due Goal Order Annual PT. Due on due Goal [employer]IVER Paperwork. Due on due Goal UDT. Due on due Goal AST (SGOT). Due on due Goal Medication Recon ciliation. Due on due Goal ALT (SGPT). Due on due Goal Update Social History. Due o n due Goal Unhealthy drug u se screening. Due on due Goal Hepatitis C screening. Due o n due Goal PHQ-9. Due on du e Goal Review Allergy List. Due on due Goal Weight. Due on d ue Goal Lipid panel. Due on due Goal Tobacco Use. Due on due Goal Height. Due on d ue Goal [employer]IVER Paperwork. Due on due Goal Creatinine. Due on due Goal Review Allergy List. Due on due Goal Order Annual PT. Due on due Goal Medication Recon ciliation. Due on due Goal Hepatitis C screening. Due o n due Goal Height. Due on d ue Goal PHQ-9. Due on du e Goal ALT (SGPT). Due on due Goal OARS. Due on due Goal AST (SGOT). Due on due Goal Lipid panel. Due on due Goal Tobacco Use. Due on due Goal Unhealthy drug u se screening. Due on due Goal BASEBALL INSPECTOR Scanned. Due on due Goal Update Social History. Due o n due Goal UDT. Due on due Goal Weight. Due on d ue Goal Creatinine. Due on due Goal Height. Due on d ue Goal Tobacco Use. Due on due Goal Order Annual PT. Due on due Goal Medication Recon ciliation. Due on due Goal [employer]IVER Paperwork. Due on due Goal OARS. Due on due Goal ALT (SGPT). Due on due Goal AST (SGOT). Due on due Goal Unhealthy drug u se screening. Due on due Goal UDT. Due on due Goal BASEBALL INSPECTOR Scanned. Due on due Goal Lipid panel. Due on due Goal Hepatitis C screening. Due o n due Goal Weight. Due on d ue Goal Review Allergy List. Due on due Goal PHQ-9. Due on du e Goal Update Social History. Due o n due Goal OARS. Due on due Goal Order Annual PT. Due on due Goal Creatinine. Due on due Goal BASEBALL INSPECTOR Scanned. Due on due Goal UDT. Due on due Goal AST (SGOT). Due on due Goal Review Allergy List. Due on due Goal [employer] Paperwork. Due on due Goal ALT (SGPT). Due on due Goal Update Social History. Due o n due Goal PHQ-9. Due on du e Goal Height. Due on d ue Goal Unhealthy drug u se screening. Due on due Goal Weight. Due on d ue Goal Medication Recon ciliation. Due on due Goal Tobacco Use. Due on due Goal Lipid panel. Due on due Goal Hepatitis C screening. Due o n due Goal UDT. Due on due Goal [employer] Paperwork. Due on due Goal Lipid panel. Due on due Goal Update Social History. Due o n due Goal Tobacco Use. Due on due Goal ALT (SGPT). Due on due Goal Weight. Due on d ue Goal PHQ-9. Due on du e Goal Hepatitis C screening. Due o n due Goal Medication Recon ciliation. Due on due Goal Unhealthy drug u se screening. Due on due Goal Height. Due on d ue Goal Creatinine. Due on due Goal OARS. Due on due Goal Order Annual PT. Due on due Goal BASEBALL INSPECTOR Scanned. Due on due Goal Review Allergy List. Due on due Goal AST (SGOT). Due on due Goal BASEBALL INSPECTOR Scanned. Due on due Goal PHQ-9. Due on du e Goal ALT (SGPT). Due on due Goal Order Annual PT. Due on due Goal OARS. Due on due Goal Medication Recon ciliation. Due on due Goal AST (SGOT). Due on due Goal UDT. Due on due Goal [employer] Paperwork. Due on due Goal Creatinine. Due on due Goal Tobacco Use. Due on due Goal Hepatitis C screening. Due o n due Goal Lipid panel. Due on due Goal Weight. Due on d ue Goal Update Social History. Due o n due Goal Review Allergy List. Due on due Goal Height. Due on d ue Goal Unhealthy drug u se screening. Due on due Goal Review Allergy List. Due on due Goal ALT (SGPT). Due on due Goal [employer] Paperwork. Due on due Goal PHQ-9. Due on du e Goal Height. Due on d ue Goal BASEBALL INSPECTOR Scanned. Due on due Goal Order Annual PT. Due on due Goal AST (SGOT). Due on due Goal Tobacco Use. Due on due Goal Hepatitis C screening. Due o n due Goal Update Social History. Due o n due Goal UDT. Due on due Goal OARS. Due on due Goal Creatinine. Due on due Goal Medication Recon ciliation. Due on due Goal Lipid panel. Due on due Goal Weight. Due on d ue Goal Unhealthy drug u se screening. Due on due Goal Review Allergy List. Due on due Goal Tobacco Use. Due on due Goal Height. Due on d ue Goal Order Annual PT. Due on due Goal UDT. Due on due Goal ALT (SGPT). Due on due Goal PHQ-9. Due on du e Goal AST (SGOT). Due on due Goal Update Social History. Due o n due Goal [employer] Paperwork. Due on due Goal Hepatitis C screening. Due o n due Goal Weight. Due on d ue Goal Unhealthy drug u se screening. Due on due Goal Creatinine. Due on due Goal Medication Recon ciliation. Due on due Goal BASEBALL INSPECTOR Scanned. Due on due Goal OARS. Due on due Goal Lipid panel. Due on due Goal Hepatitis C screening. Due o n due Goal BASEBALL INSPECTOR Scanned. Due on due Goal Creatinine. Due on due Goal ALT (SGPT). Due on due Goal AST (SGOT). Due on due Goal UDT. Due on due Goal Weight. Due on d ue Goal Review Allergy List. Due on due Goal Update Social History. Due o n due Goal Medication Recon ciliation. Due on due Goal Order Annual PT. Due on due Goal Unhealthy drug u se screening. Due on due Goal Lipid panel. Due on due Goal [employer] Paperwork. Due on due Goal Tobacco Use. Due on due Goal Height. Due on d ue Goal OARS. Due on due Goal PHQ-9. Due on du e Goal [employer] Paperwork. Due on due Goal Order Annual PT. Due on due Goal Tobacco Use. Due on due Goal Weight. Due on d ue Goal BASEBALL INSPECTOR Scanned. Due on due Goal AST (SGOT). Due on due Goal Height. Due on d ue Goal Creatinine. Due on due Goal OARS. Due on due Goal Update Social History. Due o n due Goal Unhealthy drug u se screening. Due on due Goal UDT. Due on due Goal ALT (SGPT). Due on due Goal Review Allergy List. Due on due Goal Medication Recon ciliation. Due on due Goal PHQ-9. Due on du e Goal Lipid panel. Due on due Goal Hepatitis C screening. Due o n due Goal Creatinine. Due on due Goal [employer] Paperwork. Due on due Goal BASEBALL INSPECTOR Scanned. Due on due Goal UDT. Due on due Goal Order Annual PT. Due on due Goal AST (SGOT). Due on due Goal OARS. Due on due Goal ALT (SGPT). Due on due Goal Review Allergy List. Due on due Goal Height. Due on d ue Goal Update Social History. Due o n due Goal Medication Recon ciliation. Due on due Goal Unhealthy drug u se screening. Due on due Goal PHQ-9. Due on du e Goal Hepatitis C screening. Due o n due Goal Lipid panel. Due on due Goal Tobacco Use. Due on due Goal Weight. Due on d ue Goal UDT. Due on due Goal Order Annual PT. Due on due Goal Creatinine. Due on due Goal [employer] Paperwork. Due on due Goal BASEBALL INSPECTOR Scanned. Due on due Goal AST (SGOT). Due on due Goal OARS. Due on due Goal ALT (SGPT). Due on due Goal Tobacco Use. Due on due Goal Weight. Due on d ue Goal Unhealthy drug u se screening. Due on due Goal PHQ-9. Due on du e Goal Medication Recon ciliation. Due on due Goal Hepatitis C screening. Due o n due Goal Lipid panel. Due on due Goal Update Social History. Due o n due Goal Review Allergy List. Due on due Goal Height. Due on d ue Goal OARS. Due on due Goal UDT. Due on due Goal ALT (SGPT). Due on due Goal BASEBALL INSPECTOR Scanned. Due on due Goal Creatinine. Due on due Goal Order Annual PT. Due on due Goal AST (SGOT). Due on due Goal [employer] Paperwork. Due on due Goal Height. Due on d ue Goal Unhealthy drug u se screening. Due on due Goal PHQ-9. Due on du e Goal Lipid panel. Due on due Goal Tobacco Use. Due on 023 due Goal Weight. Due on d ue Goal Review Allergy List. Due on due Goal Medication Recon ciliation. Due on due Goal Hepatitis C screening. Due o n due Goal Update Social History. Due o n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 worsening. Pertinent negatives include diarrhea, fatigue, fever and incontinence (urinary). Comments: Lawson gonzalez s a 47 y/o male who presents via [facility] follow up and medication refill in the setting of chronic widespread pain r/t fibromyalgia. Pain has been worse this month. Denies any new symptoms or changes. Have yet to consult with Dr. Ray Mathews MD through [facility].He was scheduled for a BL L4-L5 TFESI on 10/13/[address] Dent, but IV sedation was unable to be obtained. He has it rescheduled with Dr. Calzada on 11/08/2022.He had a foot MRI recently after injuring his foot while working. Has not heard back for the results yet. Has increased low back pain.Reports current medication regimen provide 40% pain relief and allows for increased functionality. Continues to utilize Percocet 7.5-325mg 6x/day with moderate benefit. Denies OIC or other side effects from current medication regimen. No other concerns today. Fibromyalgia Severity level i s moderate. Duration: chronic. The client describes it as stiff, tender, sharp, throbbing and achy. It occurs persistently. The problem is fluctuating. Symptom is aggravated by bending, walking upstairs, walking downstairs, pulling, pushing and overuse. Relieving factors include sitting, rest, cold, OTC Meds, Rx Meds and injections. Pertinent negatives include diarrhea, fatigue, fever and incontinence (urinary). Comments: Lawson gonzalez s a 46 y/o male who presents via [facility] follow up and medication refill in the setting of chronic widespread pain r/t fibromyalgia. Pain has been fluctuating this month. Denies any new symptoms or changes. Have yet to consult with Dr. 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 Had a misstep in snow causing one foot to go down about 2 feet in the snow and not the other foot. Has increased lower back pain, however the pain is now bilaterally rather than just in the center. States that the right side is worse than the left.Reports current medication regimen provide 40% pain relief and allows for increased functionality. Continues to utilize Percocet 7.5-325mg 6x/day with moderate benefit. Denies OIC or other side effects from current medication regimen. No other concerns today. Fibromyalgia Severity level i s 7. Duration: chronic. It occurs persistently. The problem is stable. Relieving factors include Rx Meds. Comments: Lawson gonzalez s a 46 y/o male who presents via [facility] follow up and medication refill in the setting of chronic widespread pain r/t fibromyalgia. Pain has been stable this month. Denies any new symptoms or changes. Have yet to consult with Dr. Ray Mathews MD through [facility].Reports current medication regimen provide 40% pain relief and allows for increased functionality. Continues to utilize Percocet 7.5-325mg 6x/day with moderate benefit. Denies OIC or other side effects from current medication regimen. No other concerns today. Comments: Lawson gonzalez s a 46 y/o male who presents for follow up and medication refill in the setting of chronic widespread pain r/t fibromyalgia. Pain has been fluctuating this month. Notes he was in the ER recently d/t bowel obstruction. He states the doctors at the hospital believe the pain is from previous scar tissues of a bowel resection surgery. Will plan to follow up with [facility] soon.S/p BL L4-L5 TFESI on 06/24/[address] Calzada provided significant relief. He states the shooting pain down the legs have improved but the back pain continues to be present. Massages and icing have been beneficial in relieving the pain.Reports current medication regimen provide moderate pain relief and allows for increased functionality. Continues to utilize Percocet 7.5-325mg 6x/day with significant benefit. Denies OIC or other side effects from current medication regimen. No other concerns today. Fibromyalgia Severity level i s 8. Duration: chronic. The client describes it as sharp, achy and burning. It occurs persistently. The problem is fluctuating. Symptom is aggravated by bending, walking upstairs, walking downstairs, running, sitting, standing, walking, prolonged positioning, housework and movement. Relieving factors include massage, rest, cold and Rx Meds. Pertinent negatives include diarrhea, fatigue, fever and incontinence (urinary). Fibromyalgia Severity level i s 8. Duration: chronic. The client describes it as achy, burning and pins & needles. It occurs persistently. The problem is worsening. Symptom is aggravated by bending, walking upstairs, walking downstairs, running, sitting, standing, walking, prolonged positioning and housework. Relieving factors include rest and Rx Meds. Pertinent negatives include diarrhea, fatigue, fever and incontinence (urinary). Comments: Lawson gonzalez s a 46 y/o male who presents via [facility] for virtual follow up and medication refill in the setting of chronic widespread pain r/t fibromyalgia. Pt is routinely followed by my colleague Mariluz Mcclendon DNP. Pain has been worse this month. Reports continued joint, low back, and toe pain. Continues to express interest in the Lumbar RFA but understands he needs to recover from his toe fusion first before moving forward with the procedure. Pt inquires today about repeat ESIs vs laminectomy. Denies red flag sx. Open to repeating ESIs as needed.He states he had his 2nd toe fusion on 05/02/22. Will continue to follow up with his surgeon for further care. States recovery is going well. He is following with a chiropractor for adjustments due to irregular gait with foot boot.Reports current medication regimen provide 30% pain relief and allows for increased functionality. Continues to utilize Percocet 7.5-325mg 6x/day with significant benefit. Requests for a recertification of medical cannabis. Denies OIC or other side effects from current medication regimen. No other concerns today. Comments: Lawson gonzalez s a 46 y/o male who presents via [place] for virtual follow up and medication refill in the setting of chronic widespread pain r/t fibromyalgia. Pain has been stable this month. Continues to express interest in the Lumbar RFA but understands he needs to recover from his toe fusion first before moving forward with the procedure. He states he had his 2nd toe fusion on 05/02/22. Notes the doctor drilled out a piece of bone from the heel and inserted into the toe. He reports he continues to walk funny d/t the foot pain and states it hurts to walk on it for a significant amount of time. Have noticed an improvement in back pain since he has been confined to bed rest and have had his leg elevated while utilizing ice packs. Will continue to follow up with his surgeon for further care. S/p stomach surgery. Reports he recently experienced an infection around the surgical site and had to visit the hospital for the issue. Was prescribed antibiotics and other medications for the issue and the infection have since been resolved with no further underlying problems. Of note, patient has not consulted with psychiatry for his declining mental state. Notes his believed he did not need to set up an appointment as he does not need it. Will plan to call Dr. Anastacia Robertson at [facility] soon. Reports current medication regimen provide 30% pain relief and allows for increased functionality. Continues to utilize Percocet 7.5-325mg 6x/day with significant benefit. Requests for a recertification of medical cannabis. Denies OIC or other side effects from current medication regimen. No other concerns today. Fibromyalgia Severity level i s 8. Duration: chronic. Location of the pain is lower back and legs. The client describes it as sharp, achy, burning and tingling. It occurs persistently. The problem is stable. Symptom is aggravated by bending, walking upstairs, walking downstairs, running, sitting, standing, walking, prolonged positioning, housework and movement. Relieving factors include rest and Rx Meds. Pertinent negatives include diarrhea, fatigue, fever and incontinence (urinary). Comments: Lawson gonzalez s a 46 y/o male who presents via [place] for virtual follow up and medication refill in the setting of chronic widespread pain r/t fibromyalgia. Pain has been worse this month. S/p repeat BL L4-L5 TFESI on 02/23/[address] Vivienne Landa provided moderate relief. He states the injection helped with the leg pain but only provided minimal relief for the low back. Inquires about reviewing the most recent Lumbar MRI results. Have yet to receive a call from [facility] regarding his consultation with Dr. Ray Mathews MD about his low back pain. Continues to express interest with trialing RFA. Patient states he had rescheduled his foot surgery to 04/28/22 in order to have the plate removed. He reports he has been walking funny d/t the foot pain and believes it may contribute to the worsening of his back pain. Notes it would like to focus on his ongoing foot issue before moving forward with the lumbar RFA.Reports current medication regimen provide 35% pain relief and allows for increased functionality. Continues to utilize Percocet 7.5-325mg 6x/day with significant benefit. Continues to use medical cannabis PRN. Denies OIC or other side effects from current medication regimen. No other concerns today. Fibromyalgia Severity level i s 7. Duration: chronic. Location of the pain is lower back and legs. The client describes it as sharp, achy, burning and tingling. It occurs persistently. The problem is stable. Symptom is aggravated by bending, walking upstairs, walking downstairs, running, sitting, standing, walking, prolonged positioning, movement and housework. Relieving factors include rest and Rx Meds. Pertinent negatives include diarrhea, fatigue, fever and incontinence (urinary). Comments: Lawson gonzalez s a 46 y/o male who presents via [facility] for virtual follow up and medication refill in the setting of chronic widespread pain r/t fibromyalgia. Pain has been worse this month. S/p repeat BL L4-L5 TFESI on 02/23/[address] Vivienne Landa provided moderate relief. He states the injection helped with the leg pain but only provided minimal relief for the low back. He expressed interest in trying RFA for the low back since no benefit is currently provided for the low back with the repeated injections. He notes he would like to consult with a surgeon for the low back pain first before moving forward with any new procedural treatments. Patient reports he will have foot surgery in mid-February where he will have the plate removed. Reports current medication regimen provide 40% pain relief and allows for increased functionality. He states he is taking Percocet 7.5-325mg 6x/day. Continues to use medical cannabis PRN. Denies OIC or other side effects from current medication regimen. No other concerns today. Fibromyalgia Severity level i s 8. Duration: chronic. Location of the pain is feet. The client describes it as sharp, achy, burning and tingling. It occurs persistently. The problem is worsening. Symptom is aggravated by bending, walking upstairs, walking downstairs, sitting, standing and walking. Relieving factors include rest and Rx Meds. Pertinent negatives include diarrhea, fatigue, fever and incontinence (urinary). Comments: Lawson gonzalez s a 46 y/o male who presents via [facility] for virtual follow up and medication refill in the setting of widespread pain r/t fibromyalgia. Pain has been fluctuating this month. He states his lower back has been bothering him lately. He inquires about getting a repeat L4-L5 TFESI as previous injections helped with his lower back pain. He reports he will have a surgery on his foot in mid-February where he will have the plate removed.Reports current medication regimen provide 30% pain relief and allows for increased functionality. Using the medical cannabis PRN. Denies OIC or other side effects from current medication regimen. No other concerns today. Fibromyalgia Severity level i s 8. Duration: chronic. Location of the pain is lower back and right shoulder. The client describes it as achy. It occurs persistently. The problem is worsening. Symptom is aggravated by bending, walking, lifting and movement. Relieving factors include massage, rest, cold and Rx Meds. Pertinent negatives include diarrhea, fatigue, fever and incontinence (urinary). Comments: Lawson gonzalez s a 46 y/o male who presents via [facility] for virtual follow up and medication refill in the setting of widespread pain r/t fibromyalgia. He states his pain has persisted d/t the abdominal surgery.S/p 11/26/21 surgery; per pt ~24in of intestine removed. Patient reports that he is recovering well at present w/o complications. Patient received outside opioid prescription for post-op pain management.Reports current medication regimen provides 40% pain relief and allows increased functionality. Denies side effects from current medication regimen. Using the medical cannabis PRN. No other concerns today. Fibromyalgia Severity level i s 7. Location of the pain is stomach. The client describes it as sharp and achy. It occurs persistently. The problem is stable. Symptom is aggravated by bending, stairs and twisting. Relieving factors include massage, rest, cold and Rx Meds. Pertinent negatives include diarrhea, fatigue, fever and incontinence (urinary). Fibromyalgia Severity level i s 7. Duration: chronic. Location of the pain is lower back, bilateral shoulder and bilateral forefoot. The client describes it as sharp, achy and burning. It occurs persistently. The problem is stable. Symptom is aggravated by bending, walking upstairs, walking downstairs, sitting, standing, walking, supine, prolonged positioning, housework and movement. Relieving factors include rest, heat, cold, Rx Meds and injections. Pertinent negatives include diarrhea, fatigue, fever and incontinence (urinary). Comments: Lawson graham a 46 y/o male, presenting for follow up and medication refill in the setting of widespread pain r/t fibromyalgia. He states his pain has persisted and has continued to be severe.He notes he met with his surgeon Dr. Mejia who did his toe fusion, reports fusion was unsuccessful. He states he is taking out the plate and putting in another material to try to refuse. Patient reports that surgery will be upcoming in the near future once he has recovered from abdominal surgery.S/p 11/26/21 surgery; per pt ~24in of intestine removed. Patient reports that he is recovering well at present w/o complications. Patient received outside opioid prescription for post-op pain management.Reports current medication regimen provides 40% pain relief and allows increased functionality. He is currently on Lyrica 100mg TID with some benefit. Last time he increased his dosage he experienced SE of water retention, notes that he has not experienced this effect since his last increase. Certified for medical cannabis but states he has not used it in a while. Denies side effects from current medication regimen. Using the medical cannabis PRN. No other concerns today. Fibromyalgia Severity level i s 7. Duration: chronic. Location of the pain is bilateral shoulder. The client describes it as sharp and achy. It occurs persistently. The problem is worsening. Symptom is aggravated by running, walking, lifting and movement. Relieving factors include supine, massage, rest, cold and Rx Meds. Comments: Lawson gonzalez s a 46 y/o male, presenting via [facility] for virtual follow up and medication refill in the setting of widespread pain r/t fibromyalgia. He states his pain has persisted and has continued to be severe.He feels like since he has been completing procedures his fibro pain has doubled. He notes he met with his surgeon Dr. Mejia who did his toe fusion, reports fusion was unsuccessful. He states he is taking out the plate and putting in another material to try to refuse. He notes he will also have surgery 11/19/21 first to remove 22in of intestine and then exploratory surgery. Notes he will not be able to eat for 2 days after the procedure and will then progress to soft food and then normal food diet. States if all goes well he will not need a colostomy bag. Notes he was also doing balloon stretching procedure at [facility] and got infection, spent 5 days hospitalized. Reports current medication regimen provides 30% pain relief and allows increased functionality. He is currently on Lyrica 100mg TID with some benefit. Last time he increased his dosage he experienced SE of water retention, notes that he has not experienced this effect since his last increase. Certified for medical cannabis but states he has not used it in a while. Denies side effects from current medication regimen. Using the medical cannabis PRN. No other concerns today. Fibromyalgia Severity level i s 7. Duration: chronic. Location of the pain is shoulders and right big toe. The client describes it as achy and sharp. It occurs persistently. The problem is stable. Symptom is aggravated by walking upstairs, walking downstairs, running and lifting. Relieving factors include massage, rest, Rx Meds, ice, lying down and. Pertinent negatives include diarrhea, fatigue, fever and incontinence (urinary). Comments: Lawson rodriguez resents for virtual follow up and medication refill in the setting of widespread pain r/t fibromyalgia. He states his pain has persisted and has continued to be severe. He had another bowel obstruction. He went to [facility] and was sent to [facility] in [place] 2 weeks ago. At [facility], he had a colonoscopy and a procedure to matheus his intestine for surgery. The fibromyalgia has been flared since the colonoscopy, It is worse in the hands and shoulders. He is following with Dr. Mejia for the right toe pain. He will be having a scan to review the results of the surgery. Reports current medication regimen provides 30% pain relief and allows increased functionality, The percocet tends to wear off after 3 hours. Denies side effects from current medication regimen. Using the medical cannabis PRN. He has a rx for Lunesta, but he has yet to try it. Inquires about what to takes when the percocet wears off. No other concerns today. Fibromyalgia Severity level i s 9. Duration: chronic. Location of the pain is abdomen and joints. The patient describes it as sharp and achy. It occurs persistently. The problem is stable. Symptom is aggravated by lifting, prolonged positioning and twisting. Relieving factors include massage, cold, medications, rest and chiro. Pertinent negatives include diarrhea, fatigue, fever and incontinence (urinary). Fibromyalgia (comments) Lawson pre sents for virtual follow up and medication refill in the setting of widespread pain r/t fibromyalgia. He states his pain has persisted and has continued to be severe. Currently rating his pain 04/02. S/p 08/31/21 Repeat L4-L5 TFESI with Dr. Huynh with significant benefit. States it took 2-3 days to provide benefit, but is now reporting 80% relief. He continues to detail pain r/t small bowel obstruction. He has a follow-up scheduled with GI and surgical team later today to discuss a treatment plan. He is unsure if surgery will be needed.Since last OV, he developed a treatment plan with his sales attendant regarding his partial blockage. States he should be able to manage with medication and regular exercise. He continues to detail difficulty with exercising s/p R great toe fusion with Dr. Mejia at [facility] on 05/04/21. Plans to continue following with cardiology and [facility]. Reports current medication regimen provides moderate pain relief and allows increased functionality. Denies side effects from current medication regimen. No other concerns today. Fibromyalgia Severity level i s 7. Duration: chronic. Location of the pain is lower back and right shoulder. The patient describes it as sharp and achy. It occurs persistently. The problem is worsening. Symptom is aggravated by bending, lifting, prolonged positioning and twisting. Relieving factors include massage, rest, cold and Rx Meds. Pertinent negatives include diarrhea, fatigue, fever and incontinence (urinary). Fibromyalgia (comments) Lawson is a 46 y/o male, presenting via [facility] for virtual follow up and medication refill in the setting of widespread pain r/t fibromyalgia. He states his pain is worse this month.Low back pain with radiation into his BL legs (R>L) is stable. He states he has met with a hair specialist at [facility] a few months ago who told him they would trim the disc. He is scheduled for his BL L4-5 TFESI on 08/31/[address] Haley Huynh. He states he was at [facility] for the past week & reports new heart issues. He states while he was hospitalized his HR became extremely high. He reports his EKG was normal but he states he was told he either he has a weak valve or something partially blocked & he will be evaluated for a possible stent placement, angioplasty or pacemaker as potential treatments. He will be f/u with a sales attendant on 09/03/2021 at [place] [facility] he also noted he had a bowel obstruction which was the original indication for his hospitalisation. He reports normally he can usually tell when it he about to experience one and takes prednisone to resolve and open back up the obstruction. He states this time he didn't have warning, possibly d/t stress. He details there is a place where his small intestine is connected to his colon where this issue usually occurs. He states he is exploring a procedure with [facility] where they can open up the intestine with a small balloon or just remove that specific part of the intestine. He states his GI doctor did not mention his opoid medications as a contributing factor to his obstruction. S/p R great toe fusion with Dr. Mejia at [facility] on 05/04/21. He reports he believes he may have pulled a screw out through activity but states he was not able to make appt with [facility] to revaluate this as he was in the hospital. At [facility] he stated he met with a shoulder surgeon on 06/16/21 at [facility] and they completed a R shoulder MRI. He states the MRI found he had a torn rotator cuff, impingement and calcium deposits. He states he is scheduled for an US to further evaluate his shoulder and see if surgery is indicated-unsure if complete Medications provide 40% pain relief. He states he takes between #4-6tabs of Percocet 7.5-325mg a day. He continues to take Lyrica 100mg 3x/day and Wellbutrin which he states is helping somewhat with his depression. He states he has not met with a psychiatrist yet. Reports worsening depression d/t issues with his ex- and his children with her as well as his workers calling out d/t COVID. Denies OIC or other SEs. He continues to take medical cannabis. No other concerns today. Fibromyalgia (comments) Lawson is a 45 y/o male, presenting for follow up and medication refill in the setting of widespread pain r/t fibromyalgia. He states his pain is worse this month. He reports pain shooting from his low back into his legs (R>L). He inquires about repeating injections today. He states he has met with a hair specialist at [facility] a few months ago who told him they would trim the disc.S/p R great toe fusion with Dr. Mejia at [facility] on 05/04/21. He states he is doing PT currently. He reports he had a blood clot after his surgery. He states he was told to increase his Lyrica dosage to 500mg which caused water retention and leg swelling. He reports he has now gone back down to 300mg a day. He states he met with a shoulder surgeon on 06/16/21 at [facility] and they completed a R shoulder MRI. He states the MRI found he had a torn rotator cuff, impingement and calcium deposits. He states he is scheduled for an US to further evaluate his shoulder and see if surgery is indicated.Medications provide 30% pain relief. He states he takes between #4-6tabs of Percocet 7.5-325mg a day. He continues to take Lyrica 100mg 3x/day and Wellbutrin which he states is helping with his depression. Denies OIC or other SEs. He states his insomnia is worse, sometimes not sleeping for 2 days. He has met with his PCP for this who recommended he added another sleeping medication but he states he wakes up with anxiety. He continues to take medical cannabis. No other concerns today. Fibromyalgia Severity level i s 8. Duration: chronic. The patient describes it as sharp and achy. It occurs persistently. The problem is fluctuating. Symptom is aggravated by walking upstairs, walking downstairs, running, walking, lifting, movement, prolonged positioning and twistin. Relieving factors include stretching, massage, cold and Rx Meds. Associated symptoms include fatigue. Pertinent negatives include diarrhea, fever and incontinence (urinary). Fibromyalgia Severity level i s 8. Duration: chronic. The patient describes it as sharp and achy. It occurs persistently. The problem is fluctuating. Symptom is aggravated by walking upstairs, walking downstairs, running, movement and twisting. Relieving factors include massage, cold and Rx Meds. Associated symptoms include fatigue. Pertinent negatives include diarrhea, fever and incontinence (urinary). Fibromyalgia (comments) Lawson is a 45 y/o male, presenting for follow up and medication refill in the setting of widespread pain r/t fibromyalgia. He states his pain is stable this month. He denies any pain shooting from his low back into his legs. He states right now the pain in his BL hips and shoulders is the worst, especially after sleeping on them. S/p R great toe fusion with Dr. Mejia at [facility] on 05/04/21. He states he has a f/u appt scheduled in [place] for 06/16/21 and he will begin PT then.He presents with a boot on his left foot today. He notes he will also be consulting with a shoulder surgeon on 06/16/21 at [facility] as well. Medications provide 30% pain relief. He states he takes between #4-6tabs of Percocet 7.5-325mg a day. He continues to take Lyrica 100mg 3x/day and Wellbutrin which he states is helping with his depression. He thinks since stopping Tramadol his mood has improved. Denies OIC or other SEs. No other concerns today. Fibromyalgia (comments) Lawson is a 45 y/o male, presenting via [facility] for virtual visit follow up and medication refill in the setting of widespread pain d/t fibromyalgia. His primary concern today is poor control of post operative pain. He also inquires about getting repeat shoulder injections today. S/p R great toe fusion, Dr. Mejia at [facility] on 05/04/21. He states he has a f/u appt scheduled for 05/19/21. He describes the pain as burning but he states he is healing well and anticipates he will be fully mobile in the next 2 weeks. Medications provide 20% pain relief. He presents short today. He reports he is taking #6tabs Percocet 7.5-325mg a day since weaning off Tramadol and for his post-operative pain. He reports he is taking Lyrica 100mg 3x/day as well. He continues to take Wellbutrin which he states is helping with his depression. No other concerns today. Fibromyalgia Severity level i s 9. Duration: chronic. Location of the pain is bilateral shoulder and R foot. The patient describes it as sharp, achy and burning. It occurs persistently. The problem is stable. Symptom is aggravated by walking upstairs, walking downstairs, running, walking, movement and prolonged positioning. Relieving factors include rest, cold and Rx Meds. Pertinent negatives include diarrhea, fatigue, fever and incontinence (urinary). Fibromyalgia (comments) Lawson is a 45 y/o male, meeting with us for follow up and medication refill in the setting of widespread pain r/t fibromyalgia and low back pain. He states his pain is stable this month. He had the surgery for his R foot with Dr. Mejia at [facility] on 05/04/21. It is extremely bruised, and I have been in constant pain since the surgery. Describes the pain as burning and stabbing if he bears weight on his foot. He was given oxycodone 5mg tablets after the surgery and these provided no additional pain relief. He will have another on 05/18/21 to get the stitches removed. He is currently following the recommendations given by surgeon to keep from walking on the R foot as well as keeping his foot elevated. He notes that he has also been using ice and that takes care of the burning sensation, but doesn't take the pain away.His primary concern this week is that he is currently worried about how to manage his medications and how it will affect his pain. I just want to make sure I'm doing the right thing. He is currently weaning off the Tramadol. The Tramadol was working great, but it was lowering my testosterone levels and making my depression worse. Since he has tapered off the Tramadol, he has noticed significant improvement with his depression, but is still in pain.Reports current medication regimen provides 30% pain relief and allows for increased functionality. He presents short of the expected amount of Percocet during today's visit with #44-45 tablets. I have been taking more d/t pain from the surgery. He is also currently taking pregabalin and has #3 tablets left. Denies side effects from current medication regimen. He continues to utilize medical cannabis at night to help with sleep and anxiety. No other concerns today. Fibromyalgia Severity level i s 10. Duration: chronic. The patient describes it as sharp, achy and burning. It occurs persistently. Symptom is aggravated by walking upstairs, walking downstairs, standing, walking, movement and prolonged positioning. Relieving factors include supine, cold and Rx Meds. Pertinent negatives include diarrhea, fatigue, fever and incontinence (urinary). Fibromyalgia Severity level i s 8. Duration: chronic. The patient describes it as sharp, achy and burning. It occurs persistently. The problem is worsening. Symptom is aggravated by bending, walking upstairs, walking downstairs and prolonged positioning. Relieving factors include massage, rest, cold, Rx Meds and PT. Pertinent negatives include diarrhea, fatigue, fever and incontinence (urinary). Fibromyalgia (comments) Lawson is a 45 y/o male, meeting with us for follow up and medication refill in the setting of widespread pain r/t fibromyalgia and low back pain. He states his pain is stable this month. He has a pre-op consultation for his R foot with Dr. Mejia at [facility] on 04/28/2021.He states he was recently diagnosed with diabetes and is getting used to the lifestyle and dietary changes that come with this. 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 He endorses increased fatigue, lack of motivation, insomnia and endorses some suicidal ideation when his pain is especially bad, however he states [he] would never do that since [he] has 5 kids. He started 2 new medications for his diabetes and is unsure if the new SEs are related to the change in medications. He also states that his PCP recently alerted him to decreased testosterone levels in his blood work.Reports current medication regimen provides 30% pain relief and allows for increased functionality. He takes #1tab [place] in the morning to help him get the day started and he states that Tramadol helps take the edge off. He states the pain medications tend to provide relief for 3hrs. Denies side effects from current medication regimen. He continues to utilize medical cannabis at night to help with sleep and anxiety. No other concerns today. Fibromyalgia Severity level i s 7. Duration: chronic. Location of the pain is lower back and left shoulder. The patient describes it as sharp. It occurs persistently. The problem is worsening. Symptom is aggravated by movement, prolonged positioning and twisting. Relieving factors include massage, rest, cold and Rx Meds. Pertinent negatives include diarrhea, fatigue, fever and incontinence (urinary). Fibromyalgia (comments) Lawson is meeting with us today via [facility] for follow up and medication refill. Widespread fibromyalgia pain and low back pain are worse this month, but medication does help to some extent. He feels his pain is moderately managed at this time. He is still postponing foot surgery but is considering scheduling soon.He completed some tests through his PCP which showed possible diabetes. He will be following up for a repeat.Reports current medication regimen provides 30% pain relief and allows for increased functionality. Denies side effects from current medication regimen. He was given a Prednisone taper for Crohn's flare up.No other concerns today. Fibromyalgia (comments) Lawson is meeting with us today via [facility] for follow up and medication refill. Fibromyalgia pain persists this month, but medication does help to some extent. He feels his pain is moderately managed at this time. Low back pain is stable this month. The Bilateral L4-L5 Transforaminal Epidural Steroid Injection on 12/10/20 was helpful for left side low back painHe had to postpone his foot surgery, he will reschedule with [facility].Reports current medication regimen provides 30% pain relief and allows for increased functionality. Denies side effects from current medication regimen.No other concerns today.Patient presents with # Percocet (oxycodone/acet) 7.5/325 - d/o today, # Tramadol 300mg - d/o today. Fibromyalgia Severity level i s 8. Duration: chronic. Location of the pain is lower back. The patient describes it as sharp and achy. It occurs persistently. The problem is stable. Symptom is aggravated by walking, lifting, movement and prolonged positioning. Relieving factors include massage, cold and Rx Meds. Pertinent negatives include diarrhea, fatigue, fever and incontinence (urinary). Fibromyalgia Severity level i s 8. Duration: chronic. Location of the pain is lower back and right foot. The patient describes it as sharp and achy. It occurs persistently. The problem is worsening. Symptom is aggravated by prolonged positioning and lifting. Relieving factors include massage, rest, cold and Rx Meds. Pertinent negatives include diarrhea, fatigue, fever and incontinence (urinary). Fibromyalgia (comments) Lawson is meeting with us today via [facility] for follow up and medication refill. Fibromyalgia pain persists this month, but medication does help to some extent. He feels his pain is moderately managed at this time. Low back pain is worse this month. The Bilateral L4-L5 Transforaminal Epidural Steroid Injection on 12/10/20 was helpful for left side low back pain, but now the right side pain is more prominent (the side he fell on prior to injection). He inquires about back brace.He had to postpone his foot surgery, he will reschedule with [facility].Reports current medication regimen provides 40% pain relief and allows for increased functionality. Denies side effects from current medication regimen. He believes he is building a tolerance to the percocet since he has noticed a decrease in effectiveness. He takes 2 tab percocet at a time PRN, sometimes it works, sometimes it does not. He recently started celebrex 200mg. Reports fatigue and minimal relief form cyclobenzaprine.No other concerns today. Fibromyalgia Severity level i s 7. Duration: chronic. Location of the pain is lower back and foot. The patient describes it as sharp and achy. It occurs persistently. The problem is stable. Symptom is aggravated by lifting, movement and prolonged postioning. Relieving factors include massage, rest and cold. Pertinent negatives include diarrhea, fatigue, fever and incontinence (urinary). Fibromyalgia (comments) Lawson is meeting with us today via [facility] for following up and medication refill. Widespread fibromyalgia pain persists this month, but medication does help to some extent. He feels his pain is well managed at this time. He reports 20% relief in low back pain and 100% relief in leg pain after lumbar SULEMA on 12/10/20.He is scheduled for his toe fusion soon with [facility].Reports current medication regimen provides 40% pain relief and allows for increased functionality. Denies side effects from current medication regimen.No other concerns today. Fibromyalgia (comments) Lawson is meeting with us today via [facility] for following up and medication refill. Widespread fibromyalgia pain persists this month, but medication does help to some extent. He feels his pain is fairly well managed at this time. Reports current medication regimen provides 40% pain relief and allows for increased functionality. Denies side effects from current medication regimen.No other concerns today. Fibromyalgia Severity level i s 8. Duration: chronic. Location of the pain is lower back and bilateral hand. The patient describes it as sharp and achy. It occurs persistently. The problem is worsening. Symptom is aggravated by standing, lifting, movement and prolonged positioning. Relieving factors include massage, rest, Rx Meds and PT. Pertinent negatives include diarrhea, fatigue, fever and incontinence (urinary). Fibromyalgia Severity level i s 8. Duration: chronic. Location of the pain is lower back. The patient describes it as sharp and achy. It occurs persistently. The problem is stable. Symptom is aggravated by bending, running, prolonged positioning and lifting. Relieving factors include massage, heat, cold and Rx Meds. Associated symptoms include fatigue. Pertinent negatives include diarrhea, fever and incontinence (urinary). Fibromyalgia (comments) Lawson is meeting with us today via [facility] for following up and medication refill. Fibromyalgia pain persists this month, but medication does help to some extent. He feels his pain is moderately managed at this time. He recently fell off a collapsed ladder at work about 7 ft on his back. Reports upper ankle sprain and concussion. He visited [facility] ER. They took an MRI showed more herniated disc from the fall. The rx'ed hydroxypam 50mg and ketorolac 10mg. He has not taken the ketorolac due to interaction with Crohn's. He was also given exercises to complete as he recovers. He has been alternating ice and heat and has noticed gradual improvement. He expresses concern about his tolerance to opioids and would be interested in tapering to see if his pain level will change.The low back pain was aggravated by the fall. It is now located around the tailbone on both sides. The pain intermittently shoots down the side of the leg L>R and stops at the knee.Reports current medication regimen provides 40% pain relief and allows for increased functionality. Denies side effects from current medication regimen. He has been using diclofenac cream on his ankle and low back. Hydroxypam causes drowsiness and fatigue.No other concerns today. Fibromyalgia Severity level i s 7. Duration: chronic. Location of the pain is lower back and right foot. The patient describes it as sharp and achy. It occurs persistently. The problem is stable. Symptom is aggravated by running, walking, lifting and movement. Relieving factors include massage, rest, cold and Rx Meds. Associated symptoms include fatigue. Pertinent negatives include diarrhea, fever and incontinence (urinary). Fibromyalgia (comments) Lawson is meeting with us today via [facility] for following up and medication refill. Widespread fibromyalgia pain persists this month, but medication does help to some extent. He feels his pain is well managed at this time. He has not scheduled foot/toe surgery yet.Reports current medication regimen provides 40% pain relief and allows for increased functionality. Denies side effects from current medication regimen.No other concerns today. Fibromyalgia Severity level i s 8. Duration: chronic. Location of the pain is lower back, left shoulder and bilateral hand. The patient describes it as sharp, achy and numbness. It occurs persistently. The problem is worsening. Symptom is aggravated by bending, walking upstairs, walking downstairs, walking, lifting and prolonged postioning. Relieving factors include massage, rest, cold and Rx Meds. Associated symptoms include fatigue. Pertinent negatives include diarrhea, fever and incontinence (urinary). Fibromyalgia (comments) Lawson is meeting with us today via [facility] for following up and medication refill. Widespread fibromyalgia and low back pain is worse this month. Reports painful swelling in hands. He tries to sleep with hands open to prevent them from curling up and triggering the pain. Reports numbness and tingling at night as well. The pain is constant in the inside of his dominant side thumb. Left shoulder and toes pain persists as well. He is scheduled to f/u with [facility] to discuss toe surgery. Currently wearing a boot.Reports current medication regimen provides 40% pain relief and allows for increased functionality. Denies side effects from current medication regimen.No other concerns today. Fibromyalgia Severity level i s 7. Duration: chronic. Location of the pain is lower back, right shoulder, left hand and right big toe. The patient describes it as sharp, achy and numbness. It occurs persistently. The problem is worsening. Symptom is aggravated by walking upstairs, walking downstairs, running, lifting and movement. Relieving factors include sitting, stretching, rest, cold and Rx Meds. Associated symptoms include fatigue. Pertinent negatives include diarrhea, fever and incontinence (urinary). Fibromyalgia (comments) Lawson is meeting with us today via [employer] [facility] for following up and medication refill. Low back with radiation into lower extremities and widespread fibromyalgia pain is worse this month. He has been completing chiropractic and massage sessions with benefit. He also uses ice and continues to monitor his back pain level daily.His PCP referred him to [facility] for right shoulder pain. They took and MRI which showed impingement, torn rotator cuff, and arthritis. This is the same condition his left shoulder was in last year. Recommended same surgery as left shoulder, but it is not urgent and he may continue conservative therapies for now to prolong surgery. He will call to schedule injection in lower back when ready, right now he is taking sometime to decide weather surgery is better approach, though limited by inability to get someone to cover him for workP referred him to [facility] for the right big toe pain. He did not care for surgeon there so the referred to him to [facility] who took an X-ray. Results showed his big toe has no joint left. There is no cartilage and it is bone on bone with advanced stages of arthritis. They recommended toe fusion surgery. He rolls his foot while walking to avoid pushing off of the painful toe. This compensated gait causes pain in low back as well. They recommended starting with the toes fusion. After recovery he will have to pick between shoulder or back surgery next. Will cancel injection in toe that was ordered last OV; Reports current medication regimen provides 40% pain relief and allows for increased functionality. Denies side effects from current medication regimen. He has been drinking hermosillo juice to help with toe pain relief.No other concerns today. Dec-09-2020 low back pain (comments) Low caridad k pain persists. Reports shooting pain in right leg has returned as the SULEMA on 03/20 is wearing off. He consulted orthopedics who recommended discectomy at L4/5 due to herniated disc. Unable to follow through with surgery due to lack of coverage at work. Fibromyalgia (comments) Lawson is meeting with us today via [facility] for following up and medication refill. Widespread fibromyalgia pain persists this month but tolerable with medication. Reports new pain and swelling in his hands in am associated with numbness. Reports some mild neck painHe completed an x-ray on his left foot which showed 2 bone spurs and severe DJD. 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 Reports relief from last foot injection, though experience was very painful. He is using ice, elevation, diclofenac gel, and medication to manage the pain. He followed up with PCP for low libido who diagnosed him with low testosterone and rx'ed nodoz. He is also working on decreasing his stress level.Reports current medication regimen provides 35% pain relief and allows for increased functionality. Denies side effects from current medication regimen.No other concerns today. Fibromyalgia Severity level i s 8. Duration: chronic. Location of the pain is lower back, right shoulder, bilateral hand and left foot. The patient describes it as sharp, achy and numbness. It occurs persistently. The problem is worsening. Symptom is aggravated by walking upstairs, walking downstairs, prolonged positioning, twisting and lifting. Relieving factors include stretching, massage, rest and Rx Meds. Associated symptoms include fatigue. Pertinent negatives include diarrhea, fever and incontinence (urinary). low back pain right shoulder pain right shoulder pain (comments) Deon vides consulted [facility] for his right shoulder pain who ordered an MRI, review of results pending Fibromyalgia (comments) Lawson is meeting with us today via [facility] for following up and medication refill. Overall fibromyalgia pain persists this month, tolerable with medication. Reports stabbing pain in front/side of right shoulder. Reports previous rotator cuff issues in left shoulder, pain resolved after surgery at [facility] through [facility]. Reports only about 5 days of pain relief from steroid injection in the past.Reports swelling in right big toe and steroid injection is wearing off. RA has ruled out Gout.Reports current medication regimen provides 60% pain relief and allows for increased functionality. Denies side effects from current medication regimen, except fatigue.No other concerns today. Fibromyalgia Severity level i s 8. Duration: chronic. Location of the pain is right shoulder and bilateral hand. The patient describes it as sharp, achy and numbness. It occurs persistently. The problem is stable. Symptom is aggravated by lifting, prolonged postioning and twisting. Relieving factors include stretching, massage, cold and Rx Meds. Pertinent negatives include diarrhea, fatigue, fever and incontinence (urinary). Fibromyalgia Severity level i s 7. Duration: chronic. Location of the pain is lower back and bilateral hand. The patient describes it as achy and numbness. It occurs persistently. The problem is stable. Symptom is aggravated by standing, prolonged postioning and twisting. Relieving factors include stretching, massage, cold, Rx Meds and PT. Pertinent negatives include diarrhea, fatigue, fever and incontinence (urinary). Fibromyalgia (comments) Lawson is meeting with us today via [employer] [facility] for following up and medication refill. Bilateral hand and shoulder pain persists this month, tolerable with medication. He followed up with specialist at [facility] per referral who did not have much he could do for his pain. He only recommended that the patient get an X-ray of his hands to look for changes.Reports current medication regimen provides 60% pain relief and allows for increased functionality. Denies side effects from current medication regimen. Reports improved sleep with medical cannabis (tangerine formula form 2,10E+[id number]). Improved sleep has lead to improved pain as well. He tries not to take his pain medication at night due to relief with medical cannabis.No other concerns today. Fibromyalgia (comments) Lawson is meeting with us today via [facility] for following up and medication refill. Widespread fibromyalgia pain persists this month, tolerable with medication. Pain is aggravated by changes in the weather. Hand pain is worse. Reports pop and grind feeling with pain and decreased dexterity, likely osteoarthritis. He takes prednisone packs for pain flares, rx'ed by PCP.Low back pain has improved since Bilateral L4-L5 Transforaminal Epidural Steroid Injection on 03/20/20. Reports about 80% pain relief and no more shooting pain down legs.Reports current medication regimen provides 30% pain relief and allows for increased functionality. Denies side effects from current medication regimen. Reports no improved pain since switching from hydrocodone to percocet.No other concerns today. Fibromyalgia Severity level i s 7. Duration: chronic. Location of the pain is lower back, bilateral shoulder, bilateral hand and overall body. The patient describes it as sharp, achy, burning, tingling and numbness. It occurs persistently. The problem is worsening. Symptom is aggravated by standing, lifting, movement and prolonged positioning. Relieving factors include stretching, massage, cold, Rx Meds and PT. Pertinent negatives include diarrhea, fatigue, fever and incontinence (urinary). Fibromyalgia (comments) Lawson is meeting with us today via [employer] Visit for following up and medication refill. Overall fibromyalgia pain (worst in hands and shoulders) persists this month, tolerable with medication. Low back pain persists as well. He described the pain as a constant aching on the left side low back with occasional radiation down the leg.Reports lump of toe of right foot, hx of fracture in that area. He consulted a specialist who took an x-ray that showed possible early arthritis. Ice helps relieve the pain.Reports current medication regimen provides 30% pain relief and allows for increased functionality. Denies side effects from current medication regimen.No other concerns today. Fibromyalgia Severity level i s 3. Duration: chronic. Location of the pain is lower back and bilateral hand. The patient describes it as sharp and achy. It occurs persistently. The problem is stable. Symptom is aggravated by lifting, prolonged positioning and twisting. Relieving factors include massage and Rx Meds. Pertinent negatives include diarrhea, fatigue, fever and incontinence (urinary). Fibromyalgia Severity level i s 7. Duration: chronic. Location of the pain is lower back and bilateral hand. The patient describes it as sharp and achy. It occurs persistently. The problem is stable. Symptom is aggravated by bending, lifting and prolonged positioning. Relieving factors include massage, cold and Rx Meds. Pertinent negatives include diarrhea, fatigue, fever and incontinence (urinary). Fibromyalgia (comments) Lawson is meeting with us today via [facility] for following up and medication refill. Overall fibromyalgia pain persists this month, tolerable with medication. Reports relief in hand pain from meds.His low back pain with radiation into left leg persists. Big right toe pain persists. Reports relief after right 1st MTP joint injection, but now pain has returned.Low back and pain in bilateral hands persists.Reports current medication regimen provides 50% pain relief and allows for increased functionality. Denies side effects from current medication regimen. He increased Lyrica to 100mg TID, not noticed improved relief. Reports grogginess with [place].No other concerns today. Fibromyalgia Severity level i s 6. Duration: chronic. Location of the pain is lower back, bilateral hand and widespread joint. The patient describes it as sharp and achy. It occurs persistently. The problem is stable. Symptom is aggravated by walking upstairs, walking downstairs, supine and prolonged positioning. Relieving factors include massage, cold, Rx Meds and PT. Pertinent negatives include diarrhea, fatigue, fever and incontinence (urinary). Fibromyalgia (comments) Lawson pre sents for a follow up and medication refill. Reports 60% pain relief with current medication regimen. 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 Tramadol ER and [place] helps keep pain manageable and allows him to go to work although less tolerable in the morning. States that he gets up and stretches every morning which he feels helpful. Low back pain is the most bothersome today, pt had massage yesterday and notes that he had quite a few muscle spasms throughout the massage. C/o radicular pain down BL legs.Notes that he was without Lyrica for 2-3 days which was horrible. Pt would like to try and increase Lyrica, denies SE's with current dose.Pt feels that tizanidine only provides relief 20% of the time. It either helps calm muscle spasms or makes him tired. Had 1st MTP joint injection on 12/31 which has helped although he continues to experience pain in the bump in his foot. Fibromyalgia Severity level i s mild-moderate. Duration: chronic. Location of the pain is hand and right forefoot. The patient describes it as sharp and achy. It occurs persistently. The problem is stable. Symptom is aggravated by standing, walking and lying down. Relieving factors include rest, Rx Meds and Ice. There are no associated symptoms. Fibromyalgia (comments) Lawson s h ere today for follow up and medication management. Reports >50% relief with their current regimen and denies any side effects.Reports pain has been improved since last visit. Notes that the Pregabalin and Tramadol ER has been going very well for him. Mentions today that the majority of his pain in his bilateral shoulders and feet. Notes that he gets intermittent hand pain as well throughout his day. Overall, Lawson would like to continue with his current regimen for another month and is satisfied with his relief. Remains interested in trialing shoulder injections and plantar fascia injections once the [place] office reopens. 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 Patient is not accompanied today and has no other questions or concerns. Fibromyalgia Severity level i s 7. Duration: chronic. The patient describes it as sharp and achy. It occurs persistently. The problem is stable. Symptom is aggravated by walking upstairs, walking downstairs, standing, lifting and prolonged positions. Relieving factors include massage, rest and Rx Meds. Fibromyalgia (comments) Lawson ret urns for follow up for widespread pain in the setting of Fibromyalgia. Reports current medication regimen provides 50% pain relief and allows for increased functionality. States that he is having increased drowsiness and anxiety with Cymbalta. Attempted to taper down on his dose from 120mg daily to 60mg daily with no success. Requests to trial a different medication for his Fibromyalgia today. Also admits to taking a second Tramadol ER this week and states that is the best day he's had this month. Inquires today about increasing his Tramadol while decreasing his Hydrocodone medication. 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 No further questions or concerns. Fibromyalgia Severity level i s 7. Duration: chronic. Location of the pain is bilateral shoulder, bilateral hand and feet. The patient describes it as sharp. It occurs persistently. The problem is stable. Symptom is aggravated by movement. Relieving factors include Rx Meds. Pertinent negatives include diarrhea, fatigue, fever and incontinence (urinary). Fibromyalgia (comments) Lawson is meeting with us today via [facility] for following up and medication refill. Bilateral foot, hands, and shoulder pain improved due to medications changes this monthReports current medication regimen provides 80% pain relief and allows for increased functionality. Denies side effects from current medication regimen.No other concerns today. Fibromyalgia Duration: chroni c. Location of the pain is neck, bilateral shoulder, bilateral hand, bilateral hip, bilateral knee and feet. The patient describes it as achy. It occurs persistently. The problem is fluctuating. Symptom is aggravated by walking upstairs, walking downstairs, standing, lifting and movement. Relieving factors include stretching, massage, rest, Rx Meds and PT. Pertinent negatives include diarrhea, fatigue, fever and incontinence (urinary). Fibromyalgia (comments) Lawson is here for a followup after initial consult. Reports mild improvement in fibromyalgia pain with Cymbalta at 60mg. Not noticed relief with tizanidine. Reports past relief with [place] would like to switch from Tramadol IR to [place]. Percocet causes stomach upset.Right 1st MTP joint pain persists. Requests update procedure ordered at last OV to have oral sedation.Shoulder pain persists, reports hx of left rotator cuff surgery. He is currently following up at [facility] and completing PT to prevent surgery on the right. reports last shoulder injection was very painful and requests oral sedation for future.Reports pain and redness in hand knuckles and inquires about injection.Insomnia persists, requests sleep medication.No other concerns today. Fibromyalgia (comments) Lawson is here for an initial consult and presents with widespread fibromyalgia and arthritis pain, initial onset 1 year ago, Fibro diagnosed this month. 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 He cannot wear his steel toed shows for work because they put too much pressure on his big toe when he walk which causes significant pain. He reports that activity helps the pain but when he stops moving at the end of the day it hurts the most. He also has this pain in his hips and low back, which causes insomnia.He also reports left shoulder pain, history of impingement surgery and arthritis. Pain aggravated with weather change. He completes at home PT on his Boflex.He also reports tight muscles in neck that cause headaches.Reports plantar fascia, uses lift supports in shoes daily. Also diagnosed with Crohn's disease.Referred by Dr. Dean Chi. He has completed an X-ray of his hands and feet.Treatment Tried:PT - helpful.Working out and increased activity - helpful.Tramadol rx'ed by PCP - helpful with Tylenol.Advil - helpful.diclofenac gel - not helpful.L[place] - somewhat helpful, causes disorientation, does not like to take during the day when he is driving.Pt goal: [facility] to take over pain management.Reports history of depression, initial onset due to chronic pain, reports no issues beforehand. Fibromyalgia Severity level i s 8. Duration: chronic. Location of the pain is lower back, neck, bilateral shoulder, bilateral elbow, bilateral hand, bilateral hip, bilateral knee, feet and head. The patient describes it as achy. It occurs persistently. Symptom is aggravated by bending, walking upstairs, walking downstairs, running, sitting, standing, supine, lifting, supine and twisting. Relieving factors include Rx Meds. Pertinent negatives include diarrhea, dyspnea, fever and incontinence (urinary). Functional Status Date Functional Assessmen t No Information Instructions Date Instruction Additional Infor mation No Information Assessments Type Assessment Date No Information Patient Care Teams Name Effective Dates (start - stop) Status Members No Information
== END 2023-06-28 10:25 | disposition home or self-care (01) ==
LOC: LKVREF 10:28
PROVIDERS: PCP Family Medicine; Visit Provider Family Medicine
DX: E78.2 Mixed hyperlipidemia (principal)
CPT/HCPCS: 80061

== ENCOUNTER 2023-08-08 12:19 | Emergency (ER) | payer BC, SELFPAY ==
[2023-08-08 12:25] VITALS: BP 122/80; PULSE 87; RESP 18; TEMP 37.2; O2SAT 96; BMI 32.2
[2023-08-08 13:00] VITALS: BP 118/80
--- NOTE | 2023-08-08 13:01 | CRLHL7_ITS ---
For Patients: As a result of the Century Cures Act, medical imaging exams and procedure reports are released immediately into your electronic medical record. You may view this report before your referring provider. If you have questions, please contact your health care provider. Indication: Sinus congestion Technique: Volumetric multidetector CT images of the paranasal sinuses were obtained without the administration of IV contrast. Comparison: None available Findings: The partially visualized brain parenchyma is normal in attenuation with no evidence of midline shift or fluid collection. The frontal sinuses are aerated with moderate mucosal thickening of the right greater than left frontal recess. There is mild to moderate chronic mucosal thickening of the anterior greater than posterior ethmoid air cells. There is minimal mucosal thickening of the bilateral sphenoid sinuses. There is minimal polypoid mucosal thickening of the left greater than right maxillary sinuses. The ostiomeatal units are clear. There is mild leftward nasal septal deviation. There is no evidence of acute osseous abnormality. Impression: Demonstration of moderate chronic mucoperiosteal thickening of the paranasal sinuses worst in the anterior ethmoid air cells and inferior maxillary sinuses. No evidence of air-fluid level to suggest acute sinusitis. Please note that all CT scans at this facility use dose modulation, iterative reconstruction, and/or weight-based dosing when appropriate to reduce radiation dose to as low as reasonably achievable. Dictated by Kiran Hemphill MD @ 08/08/2023 2:18:29 PM (Electronically Signed)
--- NOTE | 2023-08-08 13:03 | ED.GENADULT ---
HPI - General Adult General Chief complaint: Chest Pain Stated complaint: Headache, chest pain, soreness in limbs Time Seen by Provider: 08/08/23 12:31 History of Present Illness HPI narrative: This 48-year-old male comes in reporting headache for the past 3 days with sinus congestion. He states that he has had migraines in the past but those typically involve some visual changes. This he feels is more like a sinus headache. Today he also developed some chest pain that is somewhat reproducible when palpating across his anterior chest. He states that he does have a history of coronary artery disease with about 30% occlusion on of study that was done previously. He does not report any nausea, vomiting, shortness of breath, diaphoresis, or exercise intolerance. He has not had any cough and does not have fever. Related Data Home Medications Medication Instructions Recorded Confirmed Medical Cannabis PO .HS 01/18/22 06/02/23 oxycodone-acetaminophen 7.5 mg-325 1 tab PO Q4H PRN 07/19/22 08/08/23 mg tablet Previous Rx's Medication Instructions Recorded acetaminophen 325 mg tablet 650 mg (2 x 325 mg) PO Q6H PRN 14 03/22/22 days #100 tabs atorvastatin 20 mg tablet 20 mg PO QPM #30 tabs 10/12/22 metoprolol succinate 25 mg 25 mg PO BID #180 tabs 04/04/23 tablet,extended release 24 hr testosterone cypionate 200 mg/mL 250 mg (1.25 mL) IM Q2W #10 mL 05/30/23 intramuscular oil (Depo-Testosterone) gemfibrozil 600 mg tablet 600 mg PO BID #180 tabs 06/30/23 glipizide 10 mg tablet, extended 10 mg PO DAILY #90 tabs 07/25/23 release 24 hr omeprazole 40 mg capsule,delayed 40 mg PO DAILY #90 caps 07/25/23 release pregabalin 100 mg capsule 100 mg PO BID #60 caps 07/25/23 sitagliptin phosphate 100 mg tablet 100 mg PO DAILY #30 tabs 07/25/23 tramadol 50 mg tablet 50 mg PO Q6H PRN pain #15 tabs 08/08/23 Allergies Allergy/AdvReac Type Severity Reaction Status Date / Time No Known Allergies Allergy Verified 08/08/23 12:29 Review of Systems Status of ROS: Reports: 10 or more systems reviewed and unremarkable except as noted in History and below Narrative: Constitutional: No fevers, no weight gain or loss. Eyes: No discharge. No vision changes. HENT: No congestion, no sore throat, no ear pain. Cardiovascular: No palpitations. Respiratory: No shortness of breath, no wheezes, no cough. Gastrointestinal: No abdominal pain, no vomiting, no diarrhea. Genitourinary: No dysuria, no hematuria. Musculoskeletal: Normal range of motion. Skin: No rashes, no pruritis. Neurological: No dizziness, weakness, sensory change, speech change. Endo/Heme/Allergies: No bruising or bleeding. No polydipsia. Pysch: no suicidality, no anxiety, no insomnia. All other systems reviewed and are negative. PFSH PFSH Medical History Right shoulder pain ?M25.511 - Pain in right shoulder (ICD-10) Obesity with body mass index greater than 30 ?E66.9 - Obesity, unspecified (ICD-10) Herniation of lumbar intervertebral disc with radiculopathy ?M51.16 - Intervertebral disc disorders with radiculopathy, lumbar region (ICD-10) Surgical History Status post vasectomy ?Z98.52 - Vasectomy status (ICD-10) Status post small bowel resection ?Z90.49 - Acquired absence of other specified parts of digestive tract (ICD-10) Status post right foot surgery ?Z98.890 - Other specified postprocedural states (ICD-10) Status post repair of ventral hernia ?Z98.890 - Other specified postprocedural states (ICD-10) ?Z87.19 - Personal history of other diseases of the digestive system (ICD-10) Status post arthroscopy of left shoulder ?Z98.890 - Other specified postprocedural states (ICD-10) History of toe surgery ?Z98.890 - Other specified postprocedural states (ICD-10) Family History Father Skin cancer Other Diabetes Leukemia Prostate cancer Rheumatoid arthritis Social History Narrative: 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 He does not smoke. Rarely drinks alcohol. Denies recreational drug use. 5 children, ages 6-17. Highest level of school completed/degree received: Associate degree: occupational, technical, vocational program Smoking Status: Never smoker Do you use any of these nicotine containing products: None Second hand tobacco smoke exposure: No How often do you have a drink containing alcohol: monthly or less Alcohol type: beer How often do you have six or more drinks on one occasion: Never AUDIT-C Alcohol total score: 1 Non-prescribed substance use: denies use Caffeine: Yes (8 cups) service: No Exam Narrative: Exam Narrative: Constitutional: Well-developed, well-nourished, no acute distress. HEENT: Normocephalic, atraumatic. Neck: Normal range of motion. Nontender. Supple. Heart: Regular. No murmurs. Normal rate. Intact distal pulses. Lungs: Clear to auscultation. No chest discomfort. No wheezes, rhonchi, or rales. Abdomen: Normal bowel sounds. Nontender. No rebound tenderness. Genitalia: Deferred. Back: No midline tenderness. Normal range of motion. Extremities: Normal range of motion. No injury. Skin: Intact. No rash. Warm. No erythema or pallor. Neurologic: No altered sensation. No weakness. Alert and oriented. Psychiatric: No suicidality. No anxiety or depression. No insomnia. Nursing notes and vitals signs are reviewed. Const: Vital Signs, click to edit/add: Vital Signs - 24 hr 08/08/23 12:25 Temperature 98.9 F Pulse Rate [Right Pulse Oximeter] 87 Respiratory Rate 18 Blood Pressure [Ri ght Upper Arm] 122/80 Pulse Oximetry 96 Oxygen Delivery Me thod Room Air Course Vital Signs Vital signs: Initial Vital Signs Temperature 98.9 F 08/08/23 12:25 Temperature Source Temporal Artery Scan 08/08/23 12:25 Pulse Rate 87 08/08/23 12:25 Pulse Rhythm Regular 08/08/23 12:25 Pulse Strength 3+ Normal 08/08/23 12:25 Respiratory Rate 18 08/08/23 12:25 Blood Pressure 122/80 08/08/23 12:25 Blood Pressure Mean 94 08/08/23 12:25 Blood Pressure Position High-Fowlers 08/08/23 12:25 Pulse Oximetry 96 08/08/23 12:25 Oxygen Delivery Method Room Air 08/08/23 12:25 Vital Signs Temperature 98.9 F 08/08/23 12:25 Pulse Rate 87 08/08/23 12:25 Respiratory Rate 18 08/08/23 12:25 Blood Pressure 122/80 08/08/23 12:25 Pulse Oximetry 96 08/08/23 12:25 Oxygen Delivery Method Room Air 08/08/23 12:25 Temperature 98.9 F 08/08/23 12:25 Pulse Rate 87 08/08/23 12:25 Respiratory Rate 18 08/08/23 12:25 Blood Pressure 122/80 08/08/23 12:25 Pulse Oximetry 96 08/08/23 12:25 Oxygen Delivery Method Room Air 08/08/23 12:25 Medications Administered Medications: Discontinued Medications Generic Name Dose Route Start Last Admin Trade Name Freq PRN Reason Stop Dose Admin Hydromorphone HCl 0.5 mg 08/08/23 13:55 08/08/23 14:05 Hydromorphone 0.5 Mg/0.5 Ml Inj IVP 08/08/23 13:56 0.5 mg ONCE ONE Administration Ketorolac Tromethamine 30 mg 08/08/23 13:25 08/08/23 13:30 Ketorolac 30 Mg/Ml Inj IVP 08/08/23 13:26 30 mg ONCE ONE Administration Medical Decision Making MDM Narrative Medical decision making narrative: This patient comes in with report of headache and also now today has some chest discomfort. EKG shows normal sinus rhythm without any ST or T-wave abnormalities. An IV is established where her labs were also acquired. These returned with reassuring findings. His troponin returns at 0. The patient's chest pain is somewhat reproducible when palpating along the sternal border. Nasal pharyngeal swab returns positive for COVID. He also had CT imaging of his sinuses which by my review show some fluid in both of the maxillary sinuses. Radiology report is pending. The patient states that he has been taking amoxicillin for about 5 days as there were other members in the family who had strep so he was treated because of these symptoms. The patient did receive an IV dose of Toradol 30 mg but this did not help his headache much. He states that it is still at 9/10 in severity. I stated that we typically do not use narcotics for headache. He did receive an IV dose of Dilaudid as he normally does not use pain medicines and have frequent headaches. A also discuss the role of a steroid and he preferred to have an IV dose with the understanding that this will cause his blood glucose to increase temporarily. He received a 10 mg of dexamethasone. Lab Data Labs: Lab Results 08/08/23 08/08/23 08/08/23 Range/Units 12:30 13:03 13:18 WBC 3.51 L (4.50-11.00) K/uL RBC 4.27 L (4.30-5.90) m/uL Hgb 13.4 L (13.5-17.5) gm/dL Hct 40.7 (37.0-53.0) % MCV 95 (80-100) fL MCH 31 (26-34) pg MCHC 33 (32-36) gm/dL RDW Coeff of Tiffanie 14.7 (11.5-15.5) % Plt Count 274 (140-440) K/uL Neut % (Auto) 53.0 (42.0-72.0) % Lymph % (Auto) 34.5 (20-44) % Clarke % (Auto) 9.1 (0.0-11.0) % Eos % (Auto) 2.8 (0.0-7.0) % Baso % (Auto) 0.6 (0.0-3.0) % Neut # (Auto) 1.90 (1.7-7.0) K/uL Lymph # (Auto) 1.20 (0.90-2.90) K/uL Clarke # (Auto) 0.30 (0.00-0.90) K/UL Eos # (Auto) 0.10 (0.00-0.50) K/uL Baso # (Auto) 0.00 (0.00-0.30) K/uL Abs Immat Gran (auto) 0.00 (0.00-0.30) K/uL Imm/Tot Granulo (auto) 0.0 % Sodium 140 (135-149) mmol/L Potassium 4.2 (3.6-5.1) mmol/L Chloride 104 (96-114) mmol/L Carbon Dioxide 24 (20-32) mmol/L Anion Gap 12 (7-15) mEq/L BUN 14 (5-24) mg/dL Creatinine 0.8 (0.5-1.5) mg/dL Estimated Creat Clear 127.62 Estimated GFR 109 ml/min Glucose 172 H (60-115) mg/dL Calcium 8.8 (8.4-10.6) mg/dL SARS-CoV-2 (PCR) POSITIVE SARS-CoV-2 A (Negative) Influenza Type A (PCR) Negative PCR FLU A (Negative) Influenza Type B (PCR) Negative PCR FLU B (Negative) RSV (PCR) Negative PCR RSV (Negative) POC Troponin I 0.00 L (0.01-0.04) ng/ml ECG Data Attestation: I personally reviewed and interpreted this ECG as follows: Interpretation: Normal sinus rhythm. Rate is 86 beats per minute. There are no ST or T-wave abnormalities. Discharge Plan Discharge Clinical Impression: COVID-19, Sinusitis Patient Disposition: Home, Self-Care Condition: Stable Additional Instructions: Take medication as prescribed. Follow up with MD return if worsening. Prescriptions: New tramadol 50 mg tablet 50 mg PO Q6H PRN (Reason: pain) Qty: 15 0RF No Action Medical Cannabis PO .HS testosterone cypionate [Depo-Testosterone] 200 mg/mL oil 250 mg IM Q2W Qty: 10 1RF acetaminophen 325 mg Tablet 650 mg PO Q6H PRN14 Days Qty: 100 0RF oxycodone-acetaminophen 7.5-325 mg tablet 1 tab PO Q4H PRN atorvastatin 20 mg tablet 20 mg PO QPM Qty: 30 10RF metoprolol succinate 25 mg tablet extended release 24 hr 25 mg PO BID Qty: 180 1RF gemfibrozil 600 mg tablet 600 mg PO BID Qty: 180 4RF glipizide 10 mg tablet extended release 24hr 10 mg PO DAILY Qty: 90 3RF pregabalin 100 mg capsule 100 mg PO BID Qty: 60 5RF omeprazole 40 mg capsule,delayed release(DR/EC) 40 mg PO DAILY Qty: 90 2RF sitagliptin phosphate 100 mg tablet 100 mg PO DAILY Qty: 30 11RF Follow Up/Referrals: Mark Gallegos MD [Primary Care Provider] - Stand Alone [facility]: [facility] Inst[facility]
--- OUTSIDE RECORDS SUMMARY | 2023-08-08 13:08 | XMS_ITS | Clinical Summary ---
Author Name Unknown Organization [facility] Address [place], [place] [address] Care Team Providers Care Train Operator Name Role Phone Mark Gallegos MD Primary Care Provider [phone] Allergies No known active allergies Medications Medication Sig Dispensed Refills Start Date End Date Status atorvastatin (LIPITOR) 20 mg tablet Take 20 mg by mouth at bedtime. 0 Active gemfibroziL (LOPID) 600 mg tablet Take 600 mg by mouth 2 times daily before meals. 0 Active LORazepam (ATIVAN) 0.5 mg tab Take 1 mg by mouth at bedtime if needed. 0 Active metoprolol succinate (TOPROL XL) 25 mg Sustained-Release tablet Take 25 mg by mouth 2 times daily. 0 Active pregabalin (LYRICA) 100 mg capsuleIndications:fi bromyalgia Take 100 mg by mouth 2 times daily. 0 Active SITagliptin (JANUVIA) 100 mg tablet Take 100 mg by mouth once daily. 0 Active omeprazole (PRILOSEC) 40 mg Delayed-Release capsule Take 40 mg by mouth once daily. 0 Active cyclobenzaprine (FLEXERIL) 10 mg tablet Take 5-10 mg by mouth 3 times daily if needed. 0 10/28/2020 Active glipiZIDE extended-release (GLUCOTROL XL) 10 mg Extended-Release tablet Take 10 mg by mouth once daily. 0 09/29/2021 Active buPROPion (WELLBUTRIN SR) 100 mg Sustained-Release tablet Take 100 mg by mouth once daily. 0 10/21/2021 Active eszopiclone (LUNESTA) 3 mg tablet Take 3 mg by mouth at bedtime if needed for Sleep. 0 Active traZODone (DESYREL) 50 mg tablet Take 50 mg by mouth at bedtime if needed for Sleep. 0 Active methocarbamoL (ROBAXIN) 750 mg tabletIndications:H/O small bowel obstruction Take 1 Tablet (750 mg) by mouth 4 times daily. 30 Tablet 0 12/08/2021 Active oxyCODONE (ROXICODONE) 5 mg immediate release tabletIndications:H/O small bowel obstruction Take 1-2 Tablets (5-10 mg) by mouth every 4 hours if needed for Pain (For severe pain). 15 Tablet 0 12/08/2021 Active sennosides (Senna) 8.6 mg tabletIndications:H/O small bowel obstruction Take 2 Tablets (17.2 mg) by mouth 2 times daily. 100 Tablet 0 12/08/2021 Active Active Problems Problem Noted Date Diagnosed Date Elevated creatine kinase 10/25/2021 GERD (gastroesophageal reflux disease) 2 Type 2 diabetes mellitus 10/24/2021 Hyperlipidemia 10/24/2021 Hypertension 10/24/2021 H/O: Small bowel stricture 10/24/2021 Depression 10/24/2021 Abdominal pain 10/24/2021 H/O: Small bowel obstruction, recurrent 10/25/19 Crohn's disease of both small and large intestin e 08/17/2016 Resolved Problems Problem Noted Date Diagnosed Date Resolved Date Personal history of other di seases of the digestive system 09/06/2021 10/24/2021 Terminal ileitis 08/20/2015 10/24/2021 Immunizations Name Administration Dates Next Due Influenza A (H1N1), Inactivated (Age >=3 Years) 07/09/2009 Influenza, IIV3 (Age >=3 years) 05/06/2016,05/06 MMR 07/01/1994 Td, Preservative Free (age >= 7 Years) 6 Family History Medical History Relation Name Comments Skin cancer Father Relation Name Status Comments Father Social History Tobacco Use Types Packs/Day Years Used Date Smoking Tobacco: Never Smokeless Tobacco: Never Tobacco Cessation:Counseling Given: Yes Alcohol Use Standard Drinks/Week Comments Yes 0 (1 standard drink = 0.6 oz pur e alcohol) rarely - maybe 2 monthly Social Connections Answer Date Recorded Frequency of Communication with Friends and Fami ly Not on file 10/31/2022 Sex and Gender Information Value Date Recorded Sex Assigned at Not on file Gender Identity Not on file Sexual Orientation Not on file Obstetrics History Last Filed Vital Signs Vital Sign Reading Time Taken Comments Blood Pressure 121/70 12/10/2021 9:30 AM CDT Pulse 78 12/10/2021 9:30 AM CDT Temperature 36.3 ??C (97.3 ??F) 12/10/2021 9:30 AM CD T Respiratory Rate 18 12/08/2021 5:00 PM CDT Oxygen Saturation 97% 12/10/2021 9:30 AM CDT room air Inhaled Oxygen Concentration - - Weight 118.2 kg (260 lb 9.6 oz) 11/26/2021 9:10 AM CDT Height 185.4 cm (6' 1) 11/26/2021 9:10 AM CDT Body Mass Index 34.38 11/26/2021 9:10 AM CDT Plan of Treatment Health Maintenance Due Date Last Done Comments Tdap 1986 HIV for age 15-65 1990 Hepatitis C screening for ag e 18-79 1993 Depression screening for age 12+ 05/11/2017 05/11/2016 BMI (ht and wt on same day) for age 18+ 03/02/2019 03/02/2018, 05/11/2016 Colonoscopy through age 75 2020 Lipids for age 45-75 2020 COVID-19 vaccine series ( season) 2023 01/07/2021, 11/13/2020 Influenza for age 9-49 03/24/2023 6, 05/06/2013, 07/09/2009 Tetanus booster 08/04/2025 08/04/2015 Pneumococcal series for age 6-64 Aged Out No longer eligible b ased on patient's age to complete this topic Advance Directives Latest Code Status on File Code Status Date Activated Date Inactivated Comments Full Code 11/26/2021 8:41 AM 12/08/2021 8:14 PM Question Answer Comments Code Status Discussion: Reviewed Preferences Code Status History Code Status Date Activated Date Inactivated Comments Full Code 10/24/2021 10:23 PM 10/29/2021 4:24 PM Question Answer Comments Code Status Discussion: Discussed Care Teams Train Operator Relationship Specialty Start Date End Date Mark Gallegos MD PCP - General Family Practice 07/30/21
--- OUTSIDE RECORDS SUMMARY | 2023-08-08 13:08 | XMS_ITS | Encounter Summary ---
Author Name Unknown Organization [facility] Address [address] [place] [address] Care Team Providers Care Bulk Mail Technician Name Role Phone Elsewhere, Pcp Primary Care Provider Unavailabl e Reason for Visit * Reason Comments Sore Throat Nasal Congestion wens Encounter Details Date Type Department Care Team (Latest Contact Info) Description 08/04/2023 6:15 PM GLOBAL CLINICAL LEADER Office Visit Urgent Care, [facility], in [place], [place] [address] [place] [address] Brant Gonzalez, SID, C.N.P., D.N.P. Pharyngitis Streptococcal (Primary Dx) Discharge Disposition: Home or Self Care Social History Tobacco Use Types Packs/Day Years Used Date Smoking Tobacco: Never Smokeless Tobacco: Never Tobacco Cessation:Counseling Given: Not Answered Alcohol Use Standard Drinks/Week Comments Not Currently 0 (1 standard drink = 0.6 oz pur e alcohol) Humiliation, Afraid, Rape, and Kick questionnair e Answer Date Recorded Within the last year, have y ou been afraid of your partner or ex-partner? No 09/15/2021 Within the last year, have y ou been humiliated or emotionally abused in other ways by your partner or ex-partner? Yes Within the last year, have y ou been kicked, hit, slapped, or otherwise physically hurt by your partner or ex-partner? No 09/15/2021 Within the last year, have y ou been raped or forced to have any kind of sexual activity by your partner or ex-partner? No 09/15/2021 Social Connection and Isolat ion Panel [NHANES] Answer Date Recorded In a typical week, how many times do you talk on the phone with family, friends, or neighbors? More than three times a week 09/15/2021 How often do you get togethe r with friends or relatives? Once a week 09/15/2021 How often do you attend chur ch or jain services? More than 4 times per year 09/15/2021 Do you belong to any clubs o r organizations such as bahai groups, unions, fraternal or athletic groups, or school groups? Yes 09/15/2021 How often do you attend meet ings of the clubs or organizations you belong to? More than 4 times per year 09/15/2021 Are you , , di vorced, , never , or living with a partner? 09/15/2021 AUDIT-C Answer Date Recorded Q1: How often do you have a drink containing alc ohol? Never 09/15/2021 Average Number of Drinks Not on file 022 Frequency of Binge Drinking Not on file 08/25 Overall Financial Resource Strain (CARDIA) Answe r Date Recorded How hard is it for you to pa y for the very basics like food, housing, medical care, and heating? Not very hard 09/15/2021 [facility] - Occupational Stress Questionnaire Answer Date Recorded Do you feel stress - tense, restless, nervous, or anxious, or unable to sleep at night because your mind is troubled all the time - these days? Very much 09/15/2021 Exercise Vital Sign Answer Date Recorde d On average, how many days pe r week do you engage in moderate to strenuous exercise (like a brisk walk)? 2 days 09/15/2021 On average, how many minutes do you engage in exercise at this level? 120 min 09/15/2021 Hunger Vital Sign Answer Date Recorded Within the past 12 months, y ou worried that your food would run out before you got the money to buy more. Never true 09/15/19 22 Within the past 12 months, t he food you bought just didn't last and you didn't have money to get more. Never true 09/15/2021 PRAPARE - Transportation Answer Date Re corded In the past 12 months, has l ack of transportation kept you from medical appointments or from getting medications? No 08/25 In the past 12 months, has l ack of transportation kept you from meetings, work, or from getting things needed for daily living? No 09/15/2021 Housing Stability Vital Sign Answer Mike e Recorded In the last 12 months, was t here a time when you were not able to pay the mortgage or rent on time? Yes 09/15/2021 In the last 12 months, how many places have you lived? 1 09/15/2021 In the last 12 months, was t here a time when you did not have a steady place to sleep or slept in a intermediate (including now)? No 09/15/2021 Nutrition Answer Date Recorded Nutrition: EVOO Fat Source Yes 09/15 On average, how many serving s of fruits and vegetables do you eat per day (serving size is equal to 1 cup or approximately the size of a tennis ball)? 0-1 09/15/2021 Dental Answer Date Recorded Dental: Regular Dentist Yes 09/15/19 Employment Answer Date Recorded Employment status Employed and actively working without restrictions 09/15/2021 Education Answer Date Recorded What is the highest level of school you have completed or the highest degree you have received? Associate degree: occupational, technical, or vocational program 09/15/2021 Sex and Gender Information Value Date Recorded Sex Assigned at Male 09/15/2021 9:14 AM GLOBAL CLINICAL LEADER Gender Identity Male 09/15/2021 9:14 AM GLOBAL CLINICAL LEADER Sexual Orientation Straight 09/15/2021 9: 14 AM GLOBAL CLINICAL LEADER documented as of this encounter Last Filed Vital Signs Vital Sign Reading Time Taken Comments Blood Pressure 107/72 08/04/2023 6:16 PM GLOBAL CLINICAL LEADER Pulse 98 08/04/2023 6:16 PM GLOBAL CLINICAL LEADER Temperature 36.2 ??C (97.1 ??F) 08/04/2023 6:16 PM CS T Respiratory Rate - - Oxygen Saturation 97% 08/04/2023 6:16 PM GLOBAL CLINICAL LEADER Inhaled Oxygen Concentration - - Weight - - Height - - Body Mass Index - - documented in this encounter Patient Instructions * Attachments The following attachments cannot be sent through Care Everywhere. * Sore Throat Care (Swiss) documented in this encounter Progress Notes * Brant Gonzalez, SID, C.N.P., D.N.P. - 08/04/2023 6:15 PM CST SUBJECTIVE CHIEF COMPLAINT / REASON FOR VISIT Sore Throat and Nasal Congestion (wens) HISTORY OF PRESENT ILLNESS Lawson Whitley is a 47 y.o. male who presents for evaluation of his congestion and sore throat since 2 days ago. Able to handle secretions well. Daughter tested positive for strep today. No other symptoms. REVIEW OF SYSTEMS A brief review of systems was negative except for that mentioned in the history of present of illness. The patient's social history, medical history, and home medications were reviewed in the electronicmedical record. ALLERGIES/CONTRAINDICATIONS Allergies Allergen Reactions Animal Dander Other (see comments) burning, watery eyes OBJECTIVE VITAL SIGNS BP 107/72 Pulse 98 Temp 36.2 ??C SpO2 97% PHYSICAL EXAMINATION General: This patient is alert and in no acute distress. HEENT: Head is atraumatic and normocephalic. Sclera and conjunctivae appear clear without any injection or exudates. PERRLA. EOMs are intact bilateral. Auditory canals are normal without erythema or edema. TMs are pearly marino and intact without erythema. Oral cavity is adequately hydrated. Posterior pharynx is erythematous. Uvula is midline. Tonsils are enlarged. Neck: Supple with bilateral tonsillar lymphadenopathy. Respiratory: Effort is easy. Lung sounds are clear to auscultation. Cardiovascular: S1, S2 are present. Normal rate and rhythm. Musculoskeletal: Grossly intact. No deformities are noted. Skin: Normal color, temperature and moisture. No rashes or lesions are noted. DIAGNOSTICS No results found for this or any previous visit (from the past 24 hour(s)). No results found. ASSESSMENT / PLAN #1 Pharyngitis Streptococcal - amoxicillin (AMOXIL) 500 mg capsule; Take 2 capsules (1,000 mg total) by mouth daily for 10 days., Starting Mon08/04/2023, Until Mon08/14/2023, Normal Complete full course of antibiotics as prescribed. Medication side effects were discussed. Encouraged yogurt or probiotic use. Alternate acetaminophen and ibuprofen for pain and fever. OTC and home care measures such as saltwater gargles, lozenges, cough drops, honey discussed. Push fluids. Get plenty of rest. Change toothbrush in 48 hrs. This patient will be contagious for 24 hours after starting antibiotics. See primary care provider to follow-up in 4-5 days if not improving, sooner to ED or urgent care for any worsening or concerning symptoms. Electronically signed by: Brant Gonzalez APRN, C.NLarry, D.N.P. 08/04/23 6:26 PM GLOBAL CLINICAL LEADER AL CLINICAL LEADER documented in this encounter Plan of Treatment Not on file documented as of this encounter Visit Diagnoses Diagnosis Pharyngitis Streptococcal- Primary documented in this encounter Care Teams Bulk Mail Technician Relationship Specialty Start Date End Date Elsewhere, Pcp PCP - General Internal Medicine 09/18/21 documented as of this encounter
--- OUTSIDE RECORDS SUMMARY | 2023-08-08 13:08 | XMS_ITS | Clinical Summary ---
Author Name Unknown Organization [facility] Address [address] [place] [address] Care Team Providers Care Casino Change Attendant Name Role Phone Elsewhere, Pcp Primary Care Provider Unavailabl e Source Comments Patient records contain information from all sites at [facility]. For routine questions regarding patient records, call [phone] during business hours, M-F 8:00 AM - 5:00 PM Central Time. Record requests for emergency care only can be directed to [phone] at any time.[facility] Allergies Active Allergy Reactions Criticality Noted Date Comments Animal Dander Other (see comments) 08/17/2016 burning, watery eyes Medications Medication Sig Dispensed Refills Start Date End Date Status atorvastatin (LIPITOR) 20 mg tablet Take 20 mg by mouth at bedtime. 0 Active gemfibroziL (LOPID) 600 mg tablet Take 600 mg by mouth 2 (two) times a day before breakfast and dinner. 0 Active metoprolol succinate (TOPROL-XL) 25 mg 24 hr tablet Take 25 mg by mouth 2 (two) times a day. Do not crush or chew. 0 Active pregabalin (LYRICA) 100 mg capsule Take 100 mg by mouth 2 (two) times a day. 0 Active SITagliptin (JANUVIA) 100 mg tablet Take 100 mg by mouth daily. 0 Active omeprazole (PriLOSEC) [address] capsule Take 40 mg by mouth every morning before breakfast. 0 Active glipiZIDE (GLUCOTROL XL) 10 mg 24 hr tablet Take 10 mg by mouth daily with breakfast. 0 Active oxyCODONE-acetamin ophen (PERCOCET) 7.5-325 mg per tablet Take 2 tablets by mouth every 6 (six) hours as needed for pain. 0 Active amoxicillin (AMOXIL) 500 mg capsuleIndications :Pharyngitis Streptococcal Take 2 capsules (1,000 mg total) by mouth daily for 10 days. 20 capsule 0 4 08/14/19 24 Active aspirin 81 mg chewable tablet Chew 81 mg daily. 0 08/04/19 24 Discontinued LORazepam (ATIVAN) 0.5 mg tablet Take 1 mg by mouth at bedtime as needed (sleep). 0 08/04/19 24 Discontinued buPROPion (WELLBUTRIN SR) 100 mg 12 hr tablet Take 100 mg by mouth daily. 0 08/04/19 24 Discontinued eszopiclone (LUNESTA) 3 mg tablet Take 3 mg by mouth at bedtime as needed for sleep. Take immediately before bedtime 0 08/04/19 24 Discontinued Active Problems Problem Noted Date Diagnosed Date Small Bowel Stricture Personal History 2 Resolved Problems Problem Noted Date Diagnosed Date Resolved Date Ileocolitis Crohn's 08/17/2016 09/15/19 22 Encounters Date Type Department Care Team Description 08/04/2023 6:15 PM EXHIBIT BUILDER Office Visit Urgent Care, [facility], in [address] [address] Brant Gonzalez, SID, C.N.P., D.N.P. Pharyngitis Streptococcal (Primary Dx) Discharge Disposition: Home or Self Care from Last 3 Months Social History Tobacco Use Types Packs/Day Years [...] often do you attend chur ch or worship services? More than 4 times per year 09/15/2021 Do you belong to any clubs o r organizations such as adventist groups, unions, fraternal or athletic groups, or [...] care, and heating? Not very hard 09/15/2021 [facility] - Occupational Stress [...] place to sleep or slept in a assisted (including now)? No 09/15/2021 Nutrition Answer Date [...] Sex Assigned at Male 09/15/2021 9:14 AM EXHIBIT BUILDER Gender Identity Male 09/15/2021 9:14 AM EXHIBIT BUILDER Sexual Orientation Straight 09/15/2021 9: 14 AM EXHIBIT BUILDER Last Filed Vital Signs Vital Sign Reading Time Taken Comments Blood Pressure 107/72 08/04/2023 6:16 PM EXHIBIT BUILDER Pulse 98 08/04/2023 6:16 PM EXHIBIT BUILDER Temperature 36.2 ??C (97.1 ??F) 08/04/2023 6:16 PM CS T Respiratory Rate 14 10/13/2021 10:30 AM CDT Oxygen Saturation 97% 08/04/2023 6:16 PM EXHIBIT BUILDER Inhaled Oxygen Concentration - - Weight 119 kg (261 lb 11 oz) 09/18/2021 4:03 PM EXHIBIT BUILDER Height 185 cm (6' 0.84) 09/21/2021 11:02 AM EXHIBIT BUILDER Body Mass Index 34.68 09/18/2021 4:03 PM EXHIBIT BUILDER Plan of Treatment Health Maintenance Due Date Last Done Comments CT Colonography 1975 Cologuard 1975 FIT 1975 HIV Screening 1975 Hepatitis B Vaccines (1 of 3 - 3-dose series) 1975 Hepatitis C Screening 1975 Lipid (Cholesterol) Screening 1975 Zoster Vaccines (1 of 2) 1994 DTaP,Tdap,and Td Vaccines (1 - Tdap) 08/05/2015 08/04/2015 COVID-19 Vaccine (3 - season) 2023 01/07/2021, 11/13/2020 Influenza Vaccine (#1) 2023 , 05/18/2021, 06/12/2020, Additional history exists Depression Screening (Annual PHQ-2) 07/24/2023 Fasting Glucose for Diabetes Screening 11/30/2024 11/30/2021, 11/29/2021, 11/27/2021, Additional history exists Colonoscopy 09/13/2031 09/13/2021, 08/25, 08/19/2016 Colorectal Cancer Screening 09/13/2031 Pneumococcal vaccine (0-64 years) Aged Out 02/16/2022 No longer eligible based on patient's age to complete this topic HPV Vaccines Aged Out No longer eligi ble based on patient's age to complete this topic Medical Devices Implanted Type Area Varnish Mixer Device Identifier Shelf Expiration Date Model / Serial / Lot Clp Hemo Cath [id number] - [id number] Implanted:Qt y: 1 on 09/13/2021 by Wolf Pena, Ph.D. at [facility] Hardware e.g. pins/screws /rods [employer] [id number] 05/10/2024 [id number] / / [id number] Clp Hemo Cath [id number] - [id number] Implanted:Qt y: 1 on 10/13/2021 by Wolf Salmeron M.D. at [facility] Hardware e.g. pins/screws /rods N/A: Ileum [employer] [id number] 11/27/2023 [id number] / / [id number] Advance Directives For more information, please contact: [phone] Latest Code Status on File Code Status Date Activated Date Inactivated Comments Full Code 09/18/2021 2:51 PM 09/21/2021 8:46 PM Question Answer Comments Full Code: Discussed Code Status History Code Status Date Activated Date Inactivated Comments Full Code 09/06/2021 4:18 PM 09/08/2021 4:06 PM Question Answer Comments Full Code: Discussed Care Teams Casino Change Attendant Relationship Specialty Start Date End Date Elsewhere, Pcp PCP - General Internal Medicine 09/18/21
--- OUTSIDE RECORDS SUMMARY | 2023-08-08 13:08 | XMS_ITS | Clinical Summary ---
Author Name Unknown Organization [facility] Address [address] [place] [address] Care Team Providers Care Retail And Promotions Coordinator Name Role Phone Silvestre Cortez MD Primary Care Provider [phone] Source Comments You are receiving this document as you are listed as the primary care provider,follow-up provider, or the patient has been referred to you for consultation.This is in compliance with the Medicare andOhiohealth Mans[facility] Hospitalcaid EHR Incentive Program,which states Providers who transition their patient to another setting of careor provider of care or refers their patient to another provider of care shouldprovide summary care record for each transition of care or referral. [facility] Allerg[facility] No known active allergies Medications Medication Sig Dispensed Refills Start Date End Date Status gemfibrozil (LOPID) 600 MG tablet Take 600 mg by mouth two times a day. 0 Active traMADol (ULTRAM) 50 MG tablet Take 150 mg by mouth daily at bedtime. 0 Active eszopiclone (LUNESTA) 3 MG tablet Take by mouth daily at bedtime. 0 Active folic acid 1 MG tabletIndications:Inf lammatory arthritis,Primary osteoarthritis involving multiple joints,Chronic pain syndrome Take 1 Tablet by mouth daily. 90 Tablet 3 06/04/2019 Active methotrexate 2.5 MG tabletIndications:Inf lammatory arthritis 4 tablets once a week for the 1st 2 weeks then increase to 8 tablets once a week thereafter 32 Tablet 3 07/29/2019 Active DULoxetine (CYMBALTA) 60 MG capsuleIndications:Ch ronic pain syndrome,Inflammatory arthritis,Primary osteoarthritis involving multiple joints Take 1 Capsule by mouth daily. 30 Capsule 3 10/08/2019 Active Active Problems Problem Noted Date Diagnosed Date Crohn's disease of both small and large intestin e 08/17/2016 Social History Tobacco Use Types Packs/Day Years Used Date Smoking Tobacco: Never Sex and Gender Information Value Date Recorded Sex Assigned at Not on file Gender Identity Not on file Sexual Orientation Not on file Last Filed Vital Signs Vital Sign Reading Time Taken Comments Blood Pressure 141/85 09/13/2019 10:28 AM PRODUCTION DESIGNER Pulse 77 06/04/2019 9:18 AM PRODUCTION DESIGNER Temperature 36.7 ??C (98 ??F) 09/13/2019 10:28 AM PRODUCTION DESIGNER Respiratory Rate - - Oxygen Saturation - - Inhaled Oxygen Concentration - - Weight 110.7 kg (244 lb) 06/04/2019 9:18 AM PRODUCTION DESIGNER Height - - Body Mass Index - - Plan of Treatment Health Maintenance Due Date Last Done Comments Colon Cancer Screening Plan Due 1975 Hep C Screening (Preventive Services) 1975 HepB (1) 1975 COVID-19 Vaccine (#1) 02/05/1976 HIV Screening (Preventive Services) 1991 Adult Preventive Visit 1993 Cholesterol 2010 DTaP/Tdap/Td (1 - Tdap) 08/05/2015 08/04/2015 Influenza (#1) 2023 06/12/2020, 10/0 07/2018, 06/01/2018, Additional history exists Zoster/Shingles (1 of 2) 2025 HepA Aged Out No longer eligi ble based on patient's age to complete this topic Hib Aged Out No longer eligi ble based on patient's age to complete this topic IPV (Polio) Aged Out No longer eligi ble based on patient's age to complete this topic MCV4 Aged Out No longer eligi ble based on patient's age to complete this topic Pneumococcal Aged Out No longer eligi ble based on patient's age to complete this topic Care Teams Retail And Promotions Coordinator Relationship Specialty Start Date End Date Silvestre Cortez MD [address] [place], [place] [id number] PCP - General 05/21/19
--- OUTSIDE RECORDS SUMMARY | 2023-08-08 13:08 | XMS_ITS | Referral Summary ---
Author Name Unknown Organization [facility] Address [address] [place] [address] Care Team Providers Care Gummed Tape Press Operator Name Role Phone Elsewhere, Pcp Primary Care Provider Unavailabl e Source Comments Patient records contain information from all sites at [facility]. For routine questions regarding patient records, call [phone] during business hours, M-F 8:00 AM - 5:00 PM Central Time. Record requests for emergency care only can be directed to [phone] at any time.[facility] Encounters Date Type Department Care Team Description 08/04/2023 6:15 PM SUPERVISOR ELECTRIC Office Visit Urgent Care, [facility], in [place], [place] [address] [place] [id number] Brant Gonzalez APRN, C.N.P., D.N.P. Pharyngitis Streptococcal (Primary Dx) Discharge Disposition: Home or Self Care from Last 3 Months Allergies Active Allergy Reactions Criticality Noted Date [...] Resolved Date Ileocolitis Crohn's 08/17/2016 09/15/19 22 Social History Tobacco Use Types Packs/Day Years [...] often do you attend chur ch or yazidism services? More than 4 times per year 09/15/2021 Do you belong to any clubs o r organizations such as zoroastrian groups, unions, fraternal or athletic groups, or [...] care, and heating? Not very hard 09/15/2021 [facility] - Occupational Stress [...] or slept in a usp (including now)? No 09/15/2021 Nutrition Answer Date [...] Sex Assigned at Male 09/15/2021 9:14 AM SUPERVISOR ELECTRIC Gender Identity Male 09/15/2021 9:14 AM SUPERVISOR ELECTRIC Sexual Orientation Straight 09/15/2021 9: 14 AM SUPERVISOR ELECTRIC Last Filed Vital Signs Vital Sign Reading Time Taken Comments Blood Pressure 107/72 08/04/2023 6:16 PM SUPERVISOR ELECTRIC Pulse 98 08/04/2023 6:16 PM SUPERVISOR ELECTRIC Temperature 36.2 ??C (97.1 ??F) 08/04/2023 6:16 PM CS T Respiratory Rate 14 10/13/2021 10:30 AM CDT Oxygen Saturation 97% 08/04/2023 6:16 PM SUPERVISOR ELECTRIC Inhaled Oxygen Concentration - - Weight 119 kg (261 lb 11 oz) 09/18/2021 4:03 PM SUPERVISOR ELECTRIC Height 185 cm (6' 0.84) 09/21/2021 11:02 AM SUPERVISOR ELECTRIC Body Mass Index 34.68 09/18/2021 4:03 PM SUPERVISOR ELECTRIC Plan of Treatment Not on file Medical Devices Implanted Type Area Coating Mixer Supervisor Device Identifier Shelf Expiration Date Model / Serial / Lot Clp Hemo Cath [id number] - [id number] Implanted:Qt y: 1 on 09/13/2021 by Wolf Pena, Ph.D. at [facility] Hardware e.g. pins/screws /rods [employer] [id number] 05/10/2024 [id number] / / [id number] Clp Hemo Cath [id number] - [id number] Implanted:Qt y: 1 on 10/13/2021 by Wlof Salmeron M.D. at [facility] Hardware e.g. pins/screws /rods N/A: Ileum [employer] [id number] 11/27/2023 [id number] / / [id number] Advance Directives For more information, please contact: [phone] Latest Code Status on File Code Status Date Activated Date Inactivated Comments Full Code 09/18/2021 2:51 PM 09/21/2021 8:46 PM Question Answer Comments Full Code: Discussed Code Status History Code Status Date Activated Date Inactivated Comments Full Code 09/06/2021 4:18 PM 09/08/2021 4:06 PM Question Answer Comments Full Code: Discussed Care Teams Gummed Tape Press Operator Relationship Specialty Start Date End Date Elsewhere, Pcp PCP - General Internal Medicine 09/18/21
--- OUTSIDE RECORDS SUMMARY | 2023-08-08 13:08 | XMS_ITS ---
Author Name Unknown Organization [facility] Address [address] [place] [address] Care Team Providers Care Capacity Planning Analyst Name Role Phone Unavailable Unavailable Unavailable Surgery Details Not on file Complications Check Surgery Details section. Procedure Estimated Blood Loss Check Surgery Details section. Procedure Findings Check Surgery Details section. Procedure Specimens Taken Check Surgery Details section.
[2023-08-08 13:23] LABS: PCR FLU A Negative PCR FLU A (Negative); PCR FLU B Negative PCR FLU B (Negative); PCR RSV Negative PCR RSV (Negative); SARS PCR* POSITIVE SARS-CoV-2 (Negative)
[2023-08-08 13:27] LABS: Basophils Percent Auto 0.6 % (0.0-3.0); Eosinophils Percent Auto 2.8 % (0.0-7.0); Hematocrit 40.7 % (37.0-53.0); Hemoglobin* 13.4 gm/dL (13.5-17.5); Lymphocytes Percent Auto 34.5 % (20-44); Mean Corpuscular HGB Conc 33 gm/dL (32-36); Mean Corpuscular Hemoglobin 31 pg (26-34); Mean Corpuscular Volume 95 fL (80-100); Monocytes Percent Auto 9.1 % (0.0-11.0); Platelet Count* 274 K/uL (140-440); RDW Coefficient of Variation % 14.7 % (11.5-15.5); Red Blood Count 4.27 m/uL (4.30-5.90); White Blood Count* 3.51 K/uL (4.50-11.00)
[2023-08-08 13:28] LABS: Slide Review Reflex No
[2023-08-08 13:30] VITALS: BP 122/82
[2023-08-08] MEDS: KETOROLAC 30 MG/ML inj IVP (13:30)
[2023-08-08 13:39] LABS: Chloride* 104 mmol/L (96-114); Potassium* 4.2 mmol/L (3.6-5.1); Sodium* 140 mmol/L (135-149)
[2023-08-08 13:42] LABS: Blood Urea Nitrogen* 14 mg/dL (5-24); Calcium* 8.8 mg/dL (8.4-10.6); Creatinine* 0.8 mg/dL (0.5-1.5); Est. Creatinine Clearance* 127.62; Estimated Glomerular Filt Rate 109 ml/min; Glucose* 172 mg/dL (60-115)
[2023-08-08 13:47] LABS: Anion Gap 12 mEq/L (7-15); Carbon Dioxide* 24 mmol/L (20-32)
[2023-08-08 14:00] VITALS: BP 112/77; RESP 18; O2SAT 97
[2023-08-08] MEDS: HYDROmorphone 0.5 mg/0.5 ml inj IVP (14:05)
[2023-08-08] MEDS: dexAMETHasone 10 MG/ML inj IV (14:16)
== END 2023-08-08 14:30 | disposition home or self-care (01) ==
PROVIDERS: Emergency Provider Emergency Medicine Emergency Medical Services; PCP Family Medicine
DX: U07.1 COVID-19 (principal); J32.9 Chronic sinusitis, unspecified
CPT/HCPCS: 36415; 70486; 80048; 84484; 85025; 87631; 93005; 96374; 96375; 99284; 99285; J1100; J1170; J1885

== ENCOUNTER 2023-08-20 12:30 | Emergency (ER) | payer BC, SELFPAY ==
[2023-08-20 13:09] VITALS: BP 132/86; PULSE 91; RESP 18; TEMP 36.8; O2SAT 98; BMI 32.2
[2023-08-20 15:11] VITALS: BP 149/92; PULSE 89; RESP 18; O2SAT 97
--- NOTE | 2023-08-20 15:11 | ED.NURSE ---
Pt c/o dizziness and feeling like I'm going to pass out in waiting room. VSS and POC glucose 118. card cutter updated. Pt updated that we will try to room patient as soon as possible.
[2023-08-20 15:31] LABS: Glucose, Point-of-Care* 118 mg/dl (60-115)
--- NOTE | 2023-08-20 16:28 | ED.GENADULT ---
HPI - General Adult General Date Seen: 08/20/23 Chief complaint: Extremity Pain/Injury, Lower Stated complaint: L leg pain Time Seen by Provider: 08/20/23 16:01 Source: patient, RN notes reviewed and old records reviewed Mode of arrival: ambulatory Limitations: no limitations History of Present Illness HPI narrative: Patient is a 48-year-old male who is here with pain radiating from the left lower back into the back of his left leg down to the knee. He does have a history of fibromyalgia, chronic back pain and a known disc herniation at L5-S1, felt to be a poor surgical candidate but was seen apparently in consideration of a spinal stimulator which he says they have recommended. He says he has not scheduled that yet because he is changing insurance. He does take oxycodone and Lyrica chronically. He said he did not try his oxycodone today because this is different than his usual pain. He says that he was worried it might be a blood clot as once he had pain and swelling in his right leg that was thought maybe to be a blood clot but then the Doppler was negative. He has not had any fevers, unexpected weight loss, night sweats. He does not have any focal weakness, he says his whole leg feels numb and tingly. He does not have any bowel or bladder changes. He says he feels generally weak today as he has diabetes and has not eaten. His blood sugar was checked in triage was 118. Related Data Home Medications Medication Instructions Recorded Confirmed Medical Cannabis PO .HS 01/18/22 06/02/23 oxycodone-acetaminophen 7.5 mg-325 1 tab PO Q4H PRN 07/19/22 08/20/23 mg tablet amitriptyline 10 mg tablet PO 08/20/23 Previous Rx's Medication Instructions Recorded acetaminophen 325 mg tablet 650 mg (2 x 325 mg) PO Q6H PRN 14 03/22/22 days #100 tabs atorvastatin 20 mg tablet 20 mg PO QPM #30 tabs 10/12/22 metoprolol succinate 25 mg 25 mg PO BID #180 tabs 04/04/23 tablet,extended release 24 hr testosterone cypionate 200 mg/mL 250 mg (1.25 mL) IM Q2W #10 mL 05/30/23 intramuscular oil (Depo-Testosterone) gemfibrozil 600 mg tablet 600 mg PO BID #180 tabs 06/30/23 glipizide 10 mg tablet, extended 10 mg PO DAILY #90 tabs 07/25/23 release 24 hr omeprazole 40 mg capsule,delayed 40 mg PO DAILY #90 caps 07/25/23 release pregabalin 100 mg capsule 100 mg PO BID #60 caps 07/25/23 sitagliptin phosphate 100 mg tablet 100 mg PO DAILY #30 tabs 07/25/23 Allergies Allergy/AdvReac Type Severity Reaction Status Date / Time No Known Allergies Allergy Verified 08/20/23 13:12 Review of Systems Status of ROS: Reports: 6 or more systems reviewed and unremarkable except as noted in History and below [facility] Medical History Right shoulder pain ?M25.511 - Pain in right shoulder (ICD-10) Obesity with body mass index greater than 30 ?E66.9 - Obesity, unspecified (ICD-10) Herniation of lumbar intervertebral disc with radiculopathy ?M51.16 - Intervertebral disc disorders with radiculopathy, lumbar region (ICD-10) Surgical History Status post vasectomy ?Z98.52 - Vasectomy status (ICD-10) Status post small bowel resection ?Z90.49 - Acquired absence of other specified parts of digestive tract (ICD-10) Status post right foot surgery ?Z98.890 - Other specified postprocedural states (ICD-10) Status post repair of ventral hernia ?Z98.890 - Other specified postprocedural states (ICD-10) ?Z87.19 - Personal history of other diseases of the digestive system (ICD-10) Status post arthroscopy of left shoulder ?Z98.890 - Other specified postprocedural states (ICD-10) History of toe surgery ?Z98.890 - Other specified postprocedural states (ICD-10) Family History Father Skin cancer Other Diabetes Leukemia Prostate cancer Rheumatoid arthritis Social History Narrative: 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 He does not smoke. Rarely drinks alcohol. Denies recreational drug use. 5 children, ages 6-17. Highest level of school completed/degree received: Associate degree: occupational, technical, vocational program Smoking Status: Never smoker Do you use any of these nicotine containing products: None Second hand tobacco smoke exposure: No How often do you have a drink containing alcohol: monthly or less Alcohol type: beer How often do you have six or more drinks on one occasion: Never AUDIT-C Alcohol total score: 1 Non-prescribed substance use: denies use Caffeine: Yes (8 cups) service: No Exam Narrative: Exam Narrative: Vital signs as noted above. In general, an alert, nontoxic male. He is sitting leaned over onto his right gluteal area. Head: Normocephalic, atraumatic. Eyes: Pupils are equal reactive. Extraocular movements are full. Conjunctivae are normal. ENT: Mucous membranes are moist. Throat is normal. Neck: Supple without lymphadenopathy. Heart: Regular rate and rhythm. Delete Extremities: Well perfused. No edema. No calf tenderness. Pulses intact. Neurologic: Patient is alert and oriented to person and place. Speech is fluent. Face is symmetric. Moves all extremities equally. strength is 5 of 5, sensation intact to light touch. Affect: Normal. Skin: Warm and dry. Well perfused. Const: Vital Signs, click to edit/add: Vital Signs - 24 hr 08/20/23 13:09 08/20/23 15:11 Temperature 98.2 F Pulse Rate [Pulse Oximeter] 91 89 Respiratory Rate 18 18 Blood Pressure [Ri ght Upper Arm] 132/86 149/92 H Pulse Oximetry 98 97 Oxygen Delivery Me thod Room Air Room Air Course Course ED Course: I reviewed a number of records for the patient, I do see he had a previous negative Doppler. Discussed with him I do not have any specific reason to believe that this is related to DVT, it sounds much more radicular, any does in fact have a known disc herniation. He does not have any edema or erythema in the leg, does not have any calf or medial upper leg tenderness. He has no history of DVT or PE. There are no historical factors that suggest he needs immediate reimaging, last MRI he says was about a month ago in anticipation of the spinal stimulator. Did discuss with him that we can try some oral steroid, with the understanding that that will affect his blood sugars. He says he has been on prednisone in the past because of his Crohn's disease. I am going to give him IM morphine, 10 mg here, have reviewed he can take his regular oxycodone continue his Lyrica. He takes omeprazole 40 mg daily, I think it would be okay for him to take an anti-inflammatory such as ibuprofen a few times a day if he tolerates that with his Crohn's, assuming he continues his omeprazole. Otherwise, I have discussed with him that he would be best served by calling his pain clinic tomorrow and getting the spinal stimulator scheduled as soon as possible. Vital Signs Vital signs: Initial Vital Signs Temperature 98.2 F 08/20/23 13:09 Temperature Source Temporal Artery Scan 08/20/23 13:09 Pulse Rate 91 08/20/23 13:09 Respiratory Rate 18 08/20/23 13:09 Blood Pressure 132/86 08/20/23 13:09 Blood Pressure Mean 101 08/20/23 13:09 Blood Pressure Position Sitting 08/20/23 13:09 Pulse Oximetry 98 08/20/23 13:09 Oxygen Delivery Method Room Air 08/20/23 13:09 Vital Signs Temperature 98.2 F 08/20/23 13:09 Pulse Rate 91 08/20/23 13:09 Respiratory Rate 18 08/20/23 13:09 Blood Pressure 132/86 08/20/23 13:09 Pulse Oximetry 98 08/20/23 13:09 Oxygen Delivery Method Room Air 08/20/23 13:09 Temperature 98.2 F 08/20/23 13:09 Pulse Rate 89 08/20/23 15:11 Respiratory Rate 18 08/20/23 15:11 Blood Pressure 149/92 H 08/20/23 15:11 Pulse Oximetry 97 08/20/23 15:11 Oxygen Delivery Method Room Air 08/20/23 15:11 Medications Administered Medications: Discontinued Medications Generic Name Dose Route Start Last Admin Trade Name Freq PRN Reason Stop Dose Admin Ketorolac Tromethamine 30 mg 08/20/23 16:24 08/20/23 16:38 Ketorolac 30 Mg/Ml Inj IM 08/20/23 16:25 30 mg ONCE ONE Administration Morphine Sulfate 10 mg 08/20/23 16:24 08/20/23 16:39 Morphine 4 Mg/Ml Inj IM 08/20/23 16:25 10 mg ONCE ONE Administration Prednisone 60 mg 08/20/23 16:24 08/20/23 16:39 Prednisone 20 Mg Tablet PO 08/20/23 16:25 60 mg ONCE ONE Administration Medical Decision Making Lab Data Labs: Lab Results 08/20/23 Range/Units 15:11 POC Glucose 118 H (60-115) mg/dl Discharge Plan Discharge Clinical Impression: Left lumbar radiculopathy Patient Disposition: Home, Self-Care Condition: Improved Instructions: Back Pain (ED) Additional Instructions: Prednisone taper as follows: 3 tabs daily for 3 days then 2 tabs daily for 3 days then 1 tab daily for 3 days. Be aware that this will cause higher blood sugars. Recommend touching base with your pain clinic and or Spine Clinic, scheduling your spine stimulator as discussed. You can take her oxycodone as needed, continue your Lyrica. I would also recommend an anti-inflammatory such as ibuprofen , 400 mg 3 times daily, for a few days assuming you can tolerate nonsteroidal anti inflammatories. Activity Level: No Restrictions Discharge Diet: Regular Prescriptions: No Action Medical Cannabis PO .HS testosterone cypionate [Depo-Testosterone] 200 mg/mL oil 250 mg IM Q2W Qty: 10 1RF acetaminophen 325 mg Tablet 650 mg PO Q6H PRN14 Days Qty: 100 0RF amitriptyline 10 mg tablet PO oxycodone-acetaminophen 7.5-325 mg tablet 1 tab PO Q4H PRN atorvastatin 20 mg tablet 20 mg PO QPM Qty: 30 10RF metoprolol succinate 25 mg tablet extended release 24 hr 25 mg PO BID Qty: 180 1RF gemfibrozil 600 mg tablet 600 mg PO BID Qty: 180 4RF glipizide 10 mg tablet extended release 24hr 10 mg PO DAILY Qty: 90 3RF pregabalin 100 mg capsule 100 mg PO BID Qty: 60 5RF omeprazole 40 mg capsule,delayed release(DR/EC) 40 mg PO DAILY Qty: 90 2RF sitagliptin phosphate 100 mg tablet 100 mg PO DAILY Qty: 30 11RF Follow Up/Referrals: Mark Gallegos MD [Primary Care Provider] - Stand Alone [facility]: [facility] Info Inst[facility]
--- OUTSIDE RECORDS SUMMARY | 2023-08-20 16:34 | XMS_ITS | Continuity of Care Document ---
Author Name Unknown Organization [facility] Address [address] [place] [address] Care Team Providers Care Inseam Trimmer Name Role Phone [facility] Unavailable Unav ailable Procedures Procedure Date IMPLANT NEUROELECTRODES Implt neurostim elctr each FLUOROGUIDE FOR SPINE INJECT IMPLANT NEUROELECTRODES INJ FORAMEN EPIDURAL L/S INJ FORAMEN EPIDURAL L/S INJ FORAMEN EPIDURAL L/S INJ FORAMEN EPIDURAL L/S Advance Directives Directive Yes / No Effective Date File Name No Information Encounters Encounter Description Practice Location Reason(s) For Visit Diagnoses Date Provider Providers Copied on Encounter [facility], [address] [place] [address], [id number], [facility] No Information [facility]. [address] [place] [address], [id number], [place]. tel:[phone] Referring Provider: Krzysztof Yeh, [address] [place] [address], [id number]. tel:[phone] [facility], [address] [place] [address], [id number], [facility] No Information [facility]. [address] [place] [address], [id number], [place]. tel:[phone] Referring Provider: Haley Huynh, [address] [place] [address], [address]. tel:[phone] [facility], [address] [place], [place], [id number], [place] [facility] No Information [facility]. [address] [facility] [place], [id number], . tel:[phone] Referring Provider: Haley Huynh, [address] [place], [address]. tel:[phone] Family History Family Member Type Diagnosis Age At Onset No Information Payers Payer name Insurance type Covered green party ID Authoriza jeremy(s) [facility] [id number] Social History Type Description Quantity Date Captured [...]
--- OUTSIDE RECORDS SUMMARY | 2023-08-20 16:34 | XMS_ITS | Continuity of Care Document ---
Author Name Unknown Organization [facility] Address [address] [place] [address] Care Team Providers Care Rouge Miller Name Role Phone Jeison Guillermo CRNA Unavailable Unavailable Procedures Procedure Date Percutaneous Image guided neuromodulatio n or intra Percutaneous Image guided injection, dra palmer, or Percutaneous Image guided destruction pr ocedures B Percutaneous Image guided destruction pr ocedures B Percutaneous Image guided destruction pr ocedures B Percutaneous Image guided injection, dra palmer, or Percutaneous Image guided injection, inaanthony, or Percutaneous Image guided injection, dra palmer, or Percutaneous Image guided injection, dra palmer, or ANESTH PERC IMG DX SP PROC ANESTH PERC IMG DX SP PROC Advance Directives Directive Yes / No Effective Date File Name No Information Encounters Encounter Description Practice Location Reason(s) For Visit Diagnoses Date Provider Providers Copied on Encounter [facility], [address] [place], [place], [id number], [place] [facility] No Information [address] Eagle Mchugh. [address] [place], [place], [id number] , . tel:[phone] Referring Provider: Krzysztof Yeh, [address] [facility] [place], [address] . tel:[phone] [facility], [address] [facility] [place], [place], [id number], [facility] No Information [address] Eagle [address]chugh. [address], [facility], [place], [place], [id number] , [place]. tel:[phone] Referring Provider: Krzysztof Calzada, [address] [place], [place] [address]ms [place], [place], [address] . tel:[phone] [facility], [facility] [place] [place], [id number], [facility] No Information 3 Judah Max. [address], [facility], [place], [place], [id number] , . tel:[phone] Referring Provider: Krzysztof Calzada, [address] [place] [address] [place], [address] . tel:[phone] [facility], [facility] [place], [id number], [facility] No Information 3 Judah Max. [address], [facility], [place], [place], [id number] , [place]. tel:[phone] Referring Provider: Krzysztof Calzada, [address] [place] [address] [place], [address] . tel:[phone] [facility], [facility] [address] [place], [place], [place], [id number], [facility] No Information 3 Judah Max. [address], [facility], [place], [place], [id number] , [place]. tel:[phone] Referring Provider: Krzysztof Calzada, [address] [place], [place] [address] [place], [address] . tel:[phone] [facility], [facility] [place], [id number], [facility] No Information 3 Judah Max. [address], [facility], [place], [place], [id number] , [place]. tel:[phone] Referring Provider: Krzysztof Calzada, [address], [place], [address] . tel:[phone] [facility], [address], [place], [place], [id number], [facility] No Information 2 So Mansoor. [address], [facility], [place], [place], [id number] , . tel: [phone] Referring Provider: Krzysztof Calzada, [address] [place], [address] . tel:[phone] [facility], [address] [place], [place], [id number], [facility] No Information 2 Judah Max. [address], [facility], [place], [place], [id number] , . tel:[phone] Referring Provider: Vivienne Landa, [facility] [address] [place], [address] . tel:[phone] [facility], [address], [place], [place], [id number], [facility] No Information 2 Naomy Spence. [address], [facility], [place], [place], [id number] , . tel:[phone] Referring Provider: Haley Huynh, [facility] [place], [address] . tel:[phone] [facility], [address], [place], [place], [id number], [facility] No Information 1 Buck Mccallum . [address], [facility], [place], [place], [id number] , . tel:[phone] Referring Provider: Haley Huynh, [facility] [place], [address] . tel:[phone] [facility], [address] [place], [place], [id number], [facility] No Information [address] Larry De Leon. [address] [facility], [facility], [place], [place], [id number] , [place]. tel:[phone] Referring Provider: Vivienne Landa, [address] [facility] [place], [address] . tel:[phone] Family History Family Member Type Diagnosis Age At Onset No Information Payers Payer name Insurance type Covered green party ID Authortamy luna(s) [facility] OOS [id number] Social History Type Description Quantity Date Captured [...]
--- OUTSIDE RECORDS SUMMARY | 2023-08-20 16:35 | XMS_ITS | Continuity of Care Document ---
Author Name Unknown Organization [facility] enter Address [address] [place] [address] 11 [facility] [address] [place] [address] Phone Care Team Providers Care Deicer Finisher Name Role Phone [facility] Unavailable Unava ilable Procedures [...] Diagnoses Date Provider Providers Copied on Encounter [facility], [address] [place] [address] [address], [place], [place], [id number], [place] tel:[phone] [place] [address] No Information 3 [facility]. [address] [place] [address], [id number], [place]. tel:[phone] Referring Provider: Krzysztof Calzada, [address] [place], [address] . tel:[phone] [place] [address], [address] [place] [address], [id number], tel:[phone] [place] [address] No Information 3 [facility]. [address] [place] [address], [id number], [place]. tel:[phone] Referring Provider: Krzysztof Calzada, [address] [place], [address] . tel:[phone] [place] [address], [address] [place] [address], [id number], tel:[phone] [place] [address] No Information 3 [facility]. [address] [place] [address], [id number], [place]. tel:[phone] Referring Provider: Krzysztof Calzada, [address] [place], [address] . tel:[phone] [place] [address], [address] [place] [address], [id number], tel:[phone] [place] [address] No Information 3 [facility]. [address] [place] [address], [id number], [place]. tel:[phone] Referring Provider: Krzysztof Calzada, [address] [place], [address] . tel:[phone] [place] [address], [address] [place] [address], [id number], tel:[phone] [place] [address] No Information 3 [facility]. [address] [place] [address], [id number], . tel:[phone] Referring Provider: Krzysztof Calzada, [address] [place], [address] . tel:[phone] [facility], [address] [place] [address], [id number], tel:[phone] [place] [address] No Information 3 [facility]. [address] [place] [address], [id number], . tel:[phone] Referring Provider: Vivienne Landa, [address] [facility], [address] . tel:[phone] [facility], [address] [place] [address], [id number], tel:[phone] [place] [address] No Information 2 [facility]. [address] [place] [address], [id number], [place]. tel:[phone] Referring Provider: Krzysztof Calzada, [address] [place], [address] . tel:[phone] [facility], [address] [place] [address], [id number], tel:[phone] [place] [address] No Information 2 [facility]. [address] [place] [address], [id number], . tel:[phone] Referring Provider: Vivienne Landa, [address] [facility] [place], [address] . tel:[phone] Family History Family Member Type Diagnosis Age At Onset No Information Payers Payer name Insurance type Covered alliance party ID Authorbinha jeremy(s) [employer] OOS [id number] Social History Type Description Quantity Date Captured [...]
--- OUTSIDE RECORDS SUMMARY | 2023-08-20 16:35 | XMS_ITS | Continuity of Care Document ---
Author Name Unknown Organization [facility] nenita Address [address] [facility] [place] [address] Phone Care Team Providers Care Astrobiologist Name Role Phone Hakan ADITHYA Mariluz Unavailable Unavailable Allergies, Adverse Reactions, Alerts Substance Reaction Status Criticality No Known Allergies Active No Inform ation Medications Medication Instructions Dosage Effective Dates (start - stop) Status Comments oxycodone 10 mg tablet take 1 tablet by oral route every 4 - 6 hours as needed , max 4/day - Active amitriptyline 10 mg tablet TAKE 1 TABLET BY ORAL ROUTE EVERY DAY AT BEDTIME, MAY REPEAT X 1 - Active trazodone 100 mg tablet take [...] 100 mg tablet take 1 tablet by o ral route every day 100 MG - Active [...] and evening meal 600 MG - Active Procedures Procedure Date SCS Lead Pull Satellite Lower Back LSO Brace ORTHOTIC MGMT AND TRAINING IMPLANT NEUROELECTRODES ANALYZE NEUROSTIM, COMPLEX IMPLANT NEUROELECTRODES OFFICE VISIT, EST TELEMEDICINE OFFICE VISIT, EST TELEMEDICINE INTERLAMINAR LMBR OR SAC OR CAUDAL May- Psych Dx Eval PT EVAL MOD COMPLEX [...] With Chromatography Drug test def 8-14 classes ROUTINE BLOOD [...] q3mo opiod tx OFFICE VISIT, EST TELEMEDICINE Roman-15-20 20 OFFICE VISIT, EST TELEMEDICINE 20 Foll-up eval q3mo opiod tx SM JOINT DRAIN/INJECT, JOINT/BURSA WITH ULTRASOUND Foll-up eval q3mo opiod tx OFFICE VISIT, EST TELEMEDICINE 20 Foll-up eval q3mo opiod tx OFFICE VISIT, EST TELEMEDICINE Foll-up eval q3mo opiod tx OFFICE VISIT, EST TELEMEDICINE Foll-up eval q3mo opiod tx OFFICE/OUTPATIENT VISIT, EST Drug test def 22+ classes Drug Urine Toxology With Chromatography OFFICE/OUTPATIENT VISIT, NEW PT-FOCUSED HLTH RISK ASSMT Results Test Name Date and Time Measure Units Reference Range Abnormal Flag Status Comments Panel Description: MRSA MSSA Screening Culture Final MRSA MSSA Screening Culture 11:34:00 Final report Final Performed by:Cara Hernandez (MARINA) Panel Description: [id number] Final Result 1 11:34:00 Comment Final No Methicillin - resistant Staphylococcus aureus.Performed by:Cara Hernandez (MARINA) Result 2 11:34:00 Comment Final No Methicillin-suscep tible Staphylococcus aureusPerformed by:Cara Hernandez (DV) Advance Directives Directive Yes / No Effective Date File Name No Information Encounters Encounter Description Practice Location Reason(s) For Visit Diagnoses Date Provider Providers Copied on Encounter [facility], [address], [place], [id number] , [place] tel:[phone] [facility] [place] No Information 4 Hakan Mcgraw. [address] [facility] [address], [place], [place], [id number], [place]. tel:[phone] [facility], [address], [place], [id number] , [place] tel:[phone] [facility] Radiculopath y, lumbar region 4 Hakan Mcgraw. [address] [place] [address] [address], [place], [id number], [place]. tel:[phone] Referring Provider: Krzysztof Yeh, [address] [place] [address], [address]. tel:[phone] [facility], [address] [place] [address], [id number] , [place] [phone] [facility] Radiculopath y, lumbar region 3 Will Krzysztof. [address] [place] [address], [id number], [place]. tel:[phone] Referring Provider: Krzysztof Yeh, [address] [place] [address], [address]. tel:[phone] OFFICE VISIT, EST TELEMEDICINE [facility], [address] [place] [address], [id number] , [place] [phone] [facility] low back pain (chief complaint) DepressionRa diculopathy, lumbar regionOther muscle spasmFibromy algiaLong term (current) use of opiate analgesicOth er postdoctoral scholar (current) drug therapy 3 Nyongesa Mariluz. [address] [place] [address], [id number], [place]. tel:[phone] Referring Provider: Krzysztof Yeh, [address] [place] [address], [address]. tel:[phone] OFFICE VISIT, EST TELEMEDICINE [facility], [address] [place] [address], [id number] , [place] [phone] [facility] low back pain (chief complaint) DepressionRa diculopathy, lumbar regionOther muscle spasmFibromy algiaLong term (current) use of opiate analgesicOth er skilled nursing (current) drug therapy 3 Nyongesa Mariluz. [address] [place] [address], [id number], [place]. tel:[phone] [facility], [address] [place] [address], [id number] , [place] [phone] [facility] Radiculopath y, lumbar region 3 Elsi Blankenship. [address] [place] [address], [id number], [place]. tel:[phone] Referring Provider: Krzysztof Yeh, [address] [place] [address], [address]. tel:[phone] Psych Dx Eval [facility], [address] [place] [address], [id number] , [place] tel:[phone] Telehealth Pain disorder with related psychologica l factorsMajor Depressive Disorder, Single episode, In full remission 3 Janee Loco. [address] [place] [address], [id number], [place]. tel:[phone] [facility], [address] [place] [address], [id number] , [place] tel:[phone] [facility] lumbago (chief complaint) Radiculopath y, lumbar region 3 Faustino Benedict. [address] [place] [address], [id number], [place]. tel:[phone] Referring Provider: Krzysztof Yeh, [address] [place] [address], [address]. tel:[phone] OFFICE/OUTPAT IENT VISIT, EST [facility], [address] [place] [address], [id number] , [place] tel:[phone] [facility] low back pain (chief complaint) DepressionOt her muscle spasmFibromy algiaLong term (current) use of opiate analgesicOth er postdoctoral scholar (current) drug therapyEncou nter for therapeutic drug level monitoringRa diculopathy, lumbar region 3 Hakan Mcgraw. [address] [facility] [address], [place], [place], [id number], [place]. tel:[phone] Referring Provider: Krzysztof Yeh, [address] [place] [address], [address]. tel:[phone] [facility], [address] [place] [address], [id number] , [place] tel:[phone] [facility] [place] No Information 3 Nysally Mcgraw. [address], [id number], [place]. tel:[phone] OFFICE VISIT, EST TELEMEDICINE [facility], [address] [place] [address], [id number] , [place] [phone] [facility] Fibromyalgia (chief complaint) DepressionOt her spondylosis, lumbar regionOther muscle spasmFibromy algiaLong term (current) use of opiate analgesicOth er skilled nursing (current) drug therapy Oct-0 3 Nyongesa Mariluz. [address], [id number], [place]. tel:[phone] OFFICE/OUTPAT IENT VISIT, EST [facility], [address] [place] [address], [id number] , [place] [phone] [facility] Fibromyalgia (chief complaint) DepressionOt her spondylosis, lumbar regionOther muscle spasmFibromy algiaLong term (current) use of opiate analgesicOth er postdoctoral scholar (current) drug therapy Mar-0 3 Nysally Mcgraw. [address], [id number], [place]. tel:[phone] Referring Provider: Vazquez Schneider, [facility], [address]. tel:[phone] [facility], [address] [place] [address], [id number] , [place] [phone] [facility] Other spondylosis, lumbar region Feb- 3 Elsi Blankenship. [address], [place], [id number], [place]. tel:[phone] Referring Provider: Vazquez Schneider, [address] [place] [address], [address]. tel:[phone] OFFICE VISIT, EST TELEMEDICINE [facility], [address] [place] [address], [id number] , [place] tel: [phone] [facility] [place] Fibromyalgia (chief complaint) DepressionOt her spondylosis, lumbar regionRadicu lopathy, lumbar regionOther muscle spasmFibromy algiaLong term (current) use of opiate analgesicOth er skilled nursing (current) drug therapy 3 Hakan Mcgraw. [address], [id number], [place]. [phone] OFFICE/OUTPAT IENT VISIT, EST [facility], [address] [place] [address], [id number] , [place] tel: [phone] [facility] Fibromyalgia (chief complaint) DepressionOt her spondylosis, lumbar regionRadicu lopathy, lumbar regionOther muscle spasmFibromy algiaEncount er for therapeutic drug level monitoringLo ng term (current) use of opiate analgesicOth er postdoctoral scholar (current) drug therapy 3 Hakan Mcgraw. [address], [id number], [place]. tel:[phone] Referring Provider: Vazquez Schneider, [address], [address]. tel:[phone] [facility], [address] [place] [address], [id number] , [place] tel:[phone] [facility] No Information 3 Hakan Mgcraw. [address], [id number], [place]. tel:[phone] [facility], [address] [place] [address], [id number] , [place] tel:[phone] [facility] [place] Other spondylosis, lumbar region 3 Hakan Mcgraw. [address], [id number], [place]. tel:[phone] [facility], [address] [place] [address], [id number] , [place] tel:[phone] [facility] Other spondylosis, lumbar region 3 Elsi Blankenship. [address], [place], [id number], [place]. [phone] Referring Provider: Vazquez Schneider, [facility]5 [facility] [address], [place], [address]. tel:[phone] [facility], [address], [place], [id number] , [place] tel:[phone] [facility] No Information 3 Hakan Mcgraw. [address] [facility] [address], [place], [place], [id number], [place]. tel:[phone] OFFICE/OUTPAT IENT VISIT, EST [facility], [address] [place] [address], [id number] , [place] tel:[phone] [facility] Fibromyalgia (chief complaint) DepressionOt her spondylosis, lumbar regionOther muscle spasmFibromy algiaLong term (current) use of opiate analgesicOth er postdoctoral scholar (current) drug therapyRadic ulopathy, lumbar regionEncoun ter for therapeutic drug level monitoring 3 Hakan Mcgraw. [address] [facility] [address], [place], [place], [id number], [place]. tel:[phone] Referring Provider: Vazquez Schneider, [address] [place] [address] [address], [place], [address]. tel:[phone] [facility], [address], [place], [id number] , [place] tel:[phone] [facility] Other spondylosis, lumbar region 3 Elsi Blankenhsip. [address], [place], [id number], [place]. [phone] Referring Provider: Vazquez Schneider, [address] [place] [address] [address], [place], [address]. [phone] OFFICE/OUTPAT IENT VISIT, EST [facility], [address], [place], [id number] , [place] tel:[phone] [facility] Fibromyalgia (chief complaint) DepressionOt her muscle spasmFibromy algiaLong term (current) use of opiate analgesicOth er skilled nursing (current) drug therapyOther spondylosis, lumbar region 3 Hakan Mcgraw. [address] [facility] [address], [place], [place], [id number], [place]. tel:[phone] Referring Provider: Vazquez Schneider, [address] [place] [address] [address], [place], [address]. tel:[phone] [facility], [address] [place] [address], [id number] , [place] tel:[phone] [facility] Radiculopath y, lumbar region 3 Elsi Blankenship. [address], [place], [id number], [place]. tel:[phone] Referring Provider: Vazquez Schneider, [address] [place] [address], [address]. tel:[phone] OFFICE VISIT, EST TELEMEDICINE [facility], [address] [place] [address], [id number] , [place] tel:[phone] [facility] Fibromyalgia (chief complaint) DepressionRa diculopathy, lumbar regionOther muscle spasmFibromy algiaLong term (current) use of opiate analgesicOth er postdoctoral scholar (current) drug therapy 3 Hakan Mcgraw. [address] [facility] [address], [place], [place], [id number], [place]. tel:[phone] [facility], [address] [place] [address], [id number] , [place] tel:[phone] [facility] Radiculopath y, lumbar region Sep- 3 Cordell Palafox. [address] [place] [address], [id number], [place]. tel:[phone] Referring Provider: Vazquez Schneider, [address] [place] [address] 11 [facility] [address], [place], [address]. tel:[phone] OFFICE VISIT, EST TELEMEDICINE [facility], [address] [place] [address] [place], [id number] , [place] tel:[phone] [facility] [place] Fibromyalgia (chief complaint) DepressionRa diculopathy, lumbar regionOther muscle spasmFibromy algiaLong term (current) use of opiate analgesicOth er skilled nursing (current) drug therapy 3 Nyongesa Mariluz. [address], [place], [id number], [place]. tel:[phone] Referring Provider: Krzysztof Yeh, [address] [place], [address]. tel:[phone] OFFICE VISIT, EST TELEMEDICINE [facility], [address] [place] [address], [id number] , [place] tel:[phone] [facility] Fibromyalgia (chief complaint) DepressionRa diculopathy, lumbar regionFibrom yalgiaOther muscle spasmLong term (current) use of opiate analgesicOth er skilled nursing (current) drug therapy 3 Nyongesa Mariluz. [address], [id number], [place]. tel:[phone] [facility], [address] [place] [address], [id number] , [place] tel:[phone] [facility] No Information 3 Nyongesa Mariluz. [address], [id number], [place]. tel:[phone] OFFICE/OUTPAT IENT VISIT, EST [facility], [address] [place] [address], [id number] , [place] tel:[phone] [facility] Fibromyalgia (chief complaint) DepressionIn somnia, unspecifiedO ther acute postprocedur al painPain in left shoulderRadi culopathy, lumbar regionOther muscle spasmPlantar fascial fibromatosis Fibromyalgia [facility] (current) use of opiate analgesic 3 Nyongesa Mariluz. [address], [place], [id number], [place]. tel:[phone] Referring Provider: Vazquez Schneider, [address] [facility] [address], [place], [address]. tel:[phone] [facility], [address] [place] [address], [id number] , [place] tel:[phone] [facility] Radiculopath y, lumbar region Dec-0 2 Elsi Blankenship. [address], [place], [id number], [place]. tel:[phone] Referring Provider: Vazquez Schneider, [address] [facility] [address], [place], [address]. [phone] OFFICE VISIT, EST TELEMEDICINE [facility], [address] [place] [address], [id number] , [place] [phone] [facility] [place] Fibromyalgia (chief complaint) Insomnia, unspecifiedD epressionOth er acute postprocedur al painPain in left shoulderRadi culopathy, lumbar regionOther muscle spasmPlantar fascial fibromatosis Fibromyalgia [facility] (current) use of opiate analgesic 2 Elsi Blankenship. [address], [place], [id number], [place]. tel:[phone] Referring Provider: Krzysztof Yeh, [address] [place] [address], [address]. 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 [address] [facility] [address], [place], [id number], [place]. tel:[phone] Referring Provider: Krzysztof Yeh, [address] [place] [address], [address]. tel:[phone] OFFICE VISIT, EST TELEMEDICINE [facility], [address], [place], [id number] , [place] tel:[phone] [facility] [place] Fibromyalgia (chief complaint) DepressionIn somnia, unspecifiedO ther acute postprocedur al painPain in left shoulderRadi culopathy, lumbar regionOther muscle spasmPlantar fascial fibromatosis Fibromyalgia [facility] (current) use of opiate analgesic Mar-2 2 Nyongesa Mariluz. [address], [id number], [place]. 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 [address], [id number], [place]. tel:[phone] [facility], [address] [place] [address], [id number] , [place] tel:[phone] [facility] Radiculopath y, lumbar region Feb-0 2 Cordell Palafox. [address] [place], [place], [id number], [place]. tel:[phone] Referring Provider: Vazquez Schneider, [address] [facility] 11 [facility] [address], [place], [address]. 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 [address] [place] [address], [id number], [place]. tel:[phone] Referring Provider: Krzysztof Yeh, [address] [place] [address], [address]. tel:[phone] OFFICE VISIT, [facility] TELEMEDICINE [facility], [address] [place] [address], [id number] , [place] tel:[phone] [facility] Fibromyalgia (chief complaint) DepressionIn somnia, unspecifiedO ther acute postprocedur al painPain in left shoulderRadi culopathy, lumbar regionOther muscle spasmPlantar fascial fibromatosis Fibromyalgia [facility] (current) use of opiate analgesic 2 Nyongesa Mariluz. [address] [place] [address], [id number], [place]. tel:[phone] Referring Provider: Krzysztof Yeh, [address] [place] [address], [address]. tel:[phone] [facility], [address] [place] [address], [id number] , [place] tel:[phone] [facility] No Information 2 Nyongesa Mariluz. [address] [place] [address], [id number], [place]. 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 [address] [place] [address], [id number], [place]. tel:[phone] Referring Provider: Vazquez Schneider, [address], [address]. tel:[phone] OFFICE VISIT, EST TELEMEDICINE [facility], [address] [place] [address], [id number] , [place] tel:[phone] [facility] [place] Fibromyalgia (chief complaint) DepressionIn somnia, unspecifiedO ther acute postprocedur al painPain in left shoulderRadi culopathy, lumbar regionOther muscle spasmPlantar fascial fibromatosis Fibromyalgia [facility] (current) use of opiate analgesic Apr-2 2 Nyongesa Mariluz. [address] [facility] [address], [place], [id number], [place]. tel:[phone] Referring Provider: Antonio Gallegos, [address], [place], [address]. tel:[phone] OFFICE VISIT, EST TELEMEDICINE [facility], [address] [place] [address], [id number] , [place] tel:[phone] [facility] Fibromyalgia (chief complaint) DepressionOt her acute postprocedur al painPain in left shoulderRadi culopathy, lumbar regionOther muscle spasmPlantar fascial fibromatosis Fibromyalgia inventory control/shipping receiving (current) use of opiate analgesicIns omnia, unspecified Mar-3 - 2 Nyongesa Mariluz. [address] [facility] [address], [place], [id number], [place]. tel:[phone] OFFICE VISIT, EST TELEMEDICINE [facility], [address] [place] [address], [id number] , [place] tel:[phone] [facility] Fibromyalgia (chief complaint) DepressionLo ng term (current) use of opiate analgesicOth er acute postprocedur al painRadiculo eufemia, lumbar regionPain in left shoulderFibr omyalgiaPlan tar fascial fibromatosis Other muscle spasm Feb-2 2 Jennie Shukla. 1455 [facility] [address], [place], [id number], [place]. tel:[phone] Referring Provider: Krzysztof Yeh, [address] [place] [address], [address]. tel:[phone] [facility], [address] [place] [address], [id number] , [place] tel:[phone] [facility] Radiculopath y, lumbar region Fe-0 2 Lino De Leon. [address] [place], [place], [id number], [place]. tel:[phone] Referring Provider: Vazquez Schneider, [address], [address]. tel:[phone] OFFICE VISIT, [facility] TELEMEDICINE [facility], [address] [place] [address], [id number] , [place] tel:[phone] [facility] Fibromyalgia (chief complaint) DepressionLo ng term (current) use of opiate analgesicOst eoarthritisO ther acute postprocedur al painRadiculo eufemia, lumbar regionPain in left shoulderPlan tar fascial fibromatosis Fibromyalgia Other muscle spasm 2 Nyongesa Mariluz. [address], [id number], [place]. tel:[phone] Referring Provider: Antonio [place]os, [address], [address]. tel:[phone] [facility], [address] [place] [address], [id number] , [place] tel:[phone] [facility] No Information 1 Nyongesa [place]. [address], [id number], [place]. tel:[phone] OFFICE/OUTPAT IENT VISIT, EST [facility], [address] [place] [address], [id number] , [place] tel:[phone] [facility] Fibromyalgia (chief complaint) DepressionLo ng term (current) use of opiate analgesicOst eoarthritisO ther acute postprocedur al painRadiculo eufemia, lumbar regionPain in left shoulderPlan tar fascial fibromatosis Fibromyalgia Encounter for therapeutic drug level monitoringOt her muscle spasm 1 Nyongesa Mariluz. [address], [id number], [place]. tel:[phone] Referring Provider: Vazquez Schneider, 1455 [facility] 11 [facility] [address], [place], [address]. tel:[phone] OFFICE/OUTPAT IENT VISIT, [facility], [address] [place] [address], [id number] , [place] tel:[phone] [facility] Fibromyalgia (chief complaint) DepressionLo ng term (current) use of opiate analgesicOst eoarthritisO ther acute postprocedur al painRadiculo eufemia, lumbar regionPain in left shoulderPlan tar fascial fibromatosis Fibromyalgia Encounter for screening for other disorder 1 Nyongesa Mariluz. [address] [facility] 11 [facility] [address], [place], [id number], [place]. tel:[phone] Referring Provider: Vazquez Schneider, [facility]5 [facility] [address], [address]. tel:[phone] OFFICE VISIT, [facility], [address] [place] [address], [id number] , [place] tel:[phone] [facility] Fibromyalgia (chief complaint) DepressionLo ng term (current) use of opiate analgesicOst eoarthritisO ther acute postprocedur al painRadiculo eufemia, lumbar regionPain in left shoulderPlan tar fascial fibromatosis Fibromyalgia 1 Nyongesa Mariluz. [address] [facility] [address], [id number], [place]. tel:[phone] OFFICE VISIT, [facility] TELEMEDICINE [facility], [address] [place] [address], [id number] , [place] tel:[phone] [facility] Fibromyalgia (chief complaint) DepressionLo ng term (current) use of opiate analgesicOst eoarthritisO ther acute postprocedur al pain 1 [address], [place], [address]. tel:[phone] Referring Provider: Krzysztof Yeh, [address] [place], [address]. tel:[phone] OFFICE/OUTPAT IENT VISIT, EST [facility], [address] [place] [address], [id number] , [place] [phone] [facility] Fibromyalgia (chief complaint) DepressionFi bromyalgiaPa in in left shoulderLong term (current) use of opiate analgesicPla ntar fascial fibromatosis Radiculopath y, lumbar regionOsteoa rthritis Sep-3 0-202 1 Nyongesa Mariluz. [address], [place], [id number], [place]. tel:[phone] Referring Provider: Vazquez Schneider, [address], [address]. tel:[phone] OFFICE VISIT, [facility] TELEMEDICINE [facility], [address] [place] [address], [id number] , [place] [phone] [facility] Fibromyalgia (chief complaint) DepressionFi bromyalgiaPa in in left shoulderPlan tar fascial fibromatosis inventory control/shipping receiving (current) use of opiate analgesicRad iculopathy, lumbar regionOsteoa rthritis Sep-0 2-202 1 Nyongesa Mariluz. [address] [facility] 11 [facility] [address], [place], [id number], [place]. tel:[phone] Referring Provider: Krzysztof Yeh, [address] [place] [address], [address]. tel:[phone] [facility], [address] [place] [address], [id number] , [place] [phone] [facility] [place] No Information 0 1 Nyongesa Mariluz. [address], [id number], [place]. tel:[phone] Referring Provider: Krzysztof Yeh, [address] [place] [address], [address]. tel:[phone] [facility], [address] [place] [address], [id number] , [place] [phone] [facility] No Information Feb-0 6 1 Nyongesa Mariluz. [address] [facility] [address], [place], [id number], [place]. tel:[phone] Referring Provider: Vazquez Schneider, 1455 [facility] 11 [facility] [address], [place], [address]. 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 [address], [id number], [place]. tel:[phone] Referring Provider: Krzysztof Yeh, [address] [place] [address], [address]. tel:[phone] OFFICE VISIT, EST TELEMEDICINE [facility], [address] [place] [address], [id number] , [place] tel:[phone] [facility] Fibromyalgia (chief complaint) DepressionFi bromyalgiaPa in in left shoulderPlan tar fascial fibromatosis [facility] (current) use of opiate analgesicRad iculopathy, lumbar regionOsteoa rthritis 1 Nyongesa Mariluz. [address], [id number], [place]. tel:[phone] Referring Provider: Krzysztof Yeh, [address] [place] [address], [address]. 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 [address] [facility] [address] [place] [address], [id number], [place]. tel:[phone] Referring Provider: Krzysztof Yeh, [address] [place] [address], [address]. tel:[phone] [facility], [address] [place] [address], [id number] , [place] tel:[phone] [facility] [place] Radiculopath y, lumbar region May-2 0-202 1 Lino De Leon. [address] [place] [address], [id number], [place]. tel:[phone] Referring Provider: Vazquez Schneider, 1455 [facility] [address], [address]. tel:[phone] OFFICE VISIT, EST TELEMEDICINE [facility], [address] [place] [address], [id number] , [place] tel:[phone] [facility] Fibromyalgia (chief complaint) Fibromyalgia Pain in left shoulderPlan tar fascial fibromatosis DepressionLo ng term (current) use of opiate analgesicRad iculopathy, lumbar regionOsteoa rthritis May-0 7-202 1 Nyongesa Mariluz. [address] [facility] [address], [id number], [place]. tel:[phone] Referring Provider: Krzysztof Yeh, [address] [place] [address], [address]. tel:[phone] OFFICE VISIT, EST TELEMEDICINE [facility], [address] [place] [address], [id number] , [place] tel:[phone] [facility] Fibromyalgia (chief complaint) Fibromyalgia Pain in left shoulderPlan tar fascial fibromatosis DepressionLo ng term (current) use of opiate analgesicRad iculopathy, lumbar regionOsteoa rthritis Apr-0 8-202 1 Nyongesa Mariluz. [address] [facility] [address], [id number], [place]. tel:[phone] Referring Provider: Krzysztof Yeh, [address] [place] [address], [address]. tel:[phone] OFFICE VISIT, EST TELEMEDICINE [facility], [address] [place] [address], [id number] , [place] tel:[phone] [facility] (chief complaint) Fibromyalgia Pain in left shoulderPlan tar fascial fibromatosis DepressionLo ng term (current) use of opiate analgesicRad iculopathy, lumbar regionOsteoa rthritis Sep- 1 Nyongesa Mariluz. [address] [facility] 11 [facility] [address], [place], [id number], [place]. tel:[phone] Referring Provider: Krzysztof Yeh, [address] [place] [address], [address]. tel:[phone] OFFICE VISIT, [facility], [address] [place] [address], [id number] , [place] [phone] [facility] Fibromyalgia (chief complaint) Fibromyalgia Pain in left shoulderPlan tar fascial fibromatosis DepressionLo ng term (current) use of opiate analgesicRad iculopathy, lumbar regionOsteoa rthritis 1 Nyongesa Mariluz. [address], [id number], [place]. tel:[phone] Referring Provider: Krzysztof Yeh, [address] [place] [address], [address]. tel:[phone] OFFICE VISIT, [facility], [address] [place] [address], [id number] , [place] [phone] [facility] Fibromyalgia (chief complaint) Fibromyalgia Pain in left shoulderPlan tar fascial fibromatosis DepressionLo ng term (current) use of opiate analgesicRad iculopathy, lumbar regionOsteoa rthritis 1 Nyongesa Mariluz. [address], [place], [id number], [place]. tel:[phone] Referring Provider: Krzysztof Yeh, [address] [place] [address], [address]. tel:[phone] OFFICE VISIT, [facility], [address] [place] [address], [id number] , [place] tel:[phone] [facility] [place] Fibromyalgia (chief complaint)low back pain (chief complaint)rig ht shoulder pain (chief complaint) Chronic pain syndromeFibr omyalgiaPain in left shoulderPlan tar fascial fibromatosis DepressionLo ng term (current) use of opiate analgesicRad iculopathy, lumbar regionOsteoa rthritis Dec-0 9-202 0 Nyongesa Mariluz. [address] [facility] [address], [place], [id number], [place]. tel:[phone] Referring Provider: Krzysztof Yeh, [address] [place] [address], [address]. [phone] OFFICE VISIT, EST TELEMEDICINE [facility], [address] [place] [address], [id number] , [place] tel:[phone] [facility] Fibromyalgia (chief complaint) Chronic pain syndromeFibr omyalgiaPain in left shoulderPlan tar fascial fibromatosis DepressionLo ng term (current) use of opiate analgesicRad iculopathy, lumbar region Nov- 0-202 0 Nyongesa Mariluz. [address] [facility] [address], [place], [id number], [place]. [phone] Referring Provider: Krzysztof Yeh, [address] [place] [address], [address]. tel:[phone] OFFICE VISIT, EST TELEMEDICINE [facility], [address] [place] [address], [id number] , [place] [phone] [facility] Fibromyalgia (chief complaint) Chronic pain syndromeFibr omyalgiaPain in left shoulderPlan tar fascial fibromatosis DepressionLo ng term (current) use of opiate analgesicRad iculopathy, lumbar region Apr-0 7-202 0 Nyongesa Mariluz. [address] [facility] [address], [place], [id number], [place]. tel:[phone] Referring Provider: Krzysztof Yeh, [address] [place] [address], [address]. tel:[phone] OFFICE VISIT, EST TELEMEDICINE [facility], [address] [place] [address], [id number] , [place] tel:[phone] [facility] [place] Fibromyalgia (chief complaint) Chronic pain syndromeFibr omyalgiaPain in left shoulderPlan tar fascial fibromatosis DepressionLo ng term (current) use of opiate analgesicRad iculopathy, lumbar region Sep-0 0 Nyongesa Mariluz. [address] [facility] [address], [place], [id number], [place]. tel:[phone] Referring Provider: Krzysztof Yeh, [address] [place] [address], [address]. tel:[phone] [facility], [address] [place] [address], [id number] , [place] [phone] [facility] [place] Radiculopath y, lumbar region Feb- 0 Cordell Palafox. [address] [place] [address], [id number], [place]. tel:[phone] Referring Provider: Vazquez Schneider, [address], [place], [address]. tel:[phone] OFFICE VISIT, EST TELEMEDICINE [facility], [address] [place] [address], [id number] , [place] [phone] [facility] [place] Fibromyalgia (chief complaint) Chronic pain syndromeFibr omyalgiaPain in left shoulderPlan tar fascial fibromatosis DepressionLo ng term (current) use of opiate analgesicRad iculopathy, lumbar region Feb- 0 Nyongesa Mariluz. [address] [facility] [address], [place], [place], [id number], [place]. tel:[phone] Referring Provider: Krzysztof Yeh, [address] [place] [address], [address]. tel:[phone] OFFICE VISIT, EST TELEMEDICINE [facility], [address] [place] [address], [id number] , [place] [phone] [facility] Fibromyalgia (chief complaint) Chronic pain syndromeFibr omyalgiaPain in left shoulderPlan tar fascial fibromatosis DepressionLo ng term (current) use of opiate analgesicLow back pain Jan- 0 Nyongesa Mariluz. [address] [facility] 11 [facility] [address], [place], [id number], [place]. tel:[phone] Referring Provider: Krzysztof Yeh, [address] [place] [address], [address]. tel:[phone] OFFICE VISIT, EST TELEMEDICINE [facility], [address] [place] [address], [id number] , [place] [phone] [facility] Fibromyalgia (chief complaint) Chronic pain syndromeFibr omyalgiaPain in left shoulderPlan tar fascial fibromatosis DepressionLo ng term (current) use of opiate analgesicLow back pain 7-202 0 Jennie Shukla. [address] [place] [address] 11 [facility] [address], [place], [id number], [place]. tel:[phone] Referring Provider: Krzysztof Yeh, [address] [place] [address], [address]. tel:[phone] [facility], [address] [place] [address], [id number] , [place] [phone] [facility] Unspecified osteoarthrit is, unspecified site 0-202 0 Hickman Wolfgang. [facility], [address] [facility] [address] [facility] [address], [place], [address], [place]. tel:[phone] Referring Provider: Vazquez Schneider, [address] [place] [address] 11 [facility] [address], [place], [address]. tel:[phone] [facility], [address] [place] [address], [id number] , [place] [phone] [facility] Primary generalized (osteo)arthr itis 8202 0 Jennie Shukla. [address] [place] [address] 11 [facility] [address], [place], [id number], [place]. 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 [address], [id number], [place]. tel:[phone] Referring Provider: Krzysztof Yeh, [address] [place] [address], [address]. tel:[phone] OFFICE VISIT, 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 [address], [id number], [place]. tel:[phone] Referring Provider: Krzysztof Yeh, [address] [place] [address], [address]. tel:[phone] OFFICE VISIT, 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 [address], [id number], [place]. tel:[phone] Referring Provider: Krzysztof Yeh, [address] [place] [address], [address]. 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 [address] [facility] [address], [place], [id number], [place]. tel:[phone] Referring Provider: Krzysztof Yeh, [address] [place], [address]. tel:[phone] OFFICE/OUTPAT IENT VISIT, [facility], [address] [place] [address], [id number] , tel:[phone] [facility] [place] Fibromyalgia (chief complaint) Fibromyalgia Chronic pain syndromeDepr essionInsomn iaOsteoarthr itisPain in left shoulderHead acheCrohn's disease, unspecified, without complication sPlantar fascial fibromatosis Encounter for therapeutic drug level monitoringLo ng term (current) use of opiate analgesic 0 Hakan Mcgraw. [address] [facility] [address], [place], [place], [id number], . tel:[phone] Referring Provider: Krzysztof Yeh, [address] [place] [address], [address]. tel:[phone] Family History Family Member Type Diagnosis Age At Onset No Information Payers Payer name Insurance type Covered alliance party ID Authoriza tiblaire(s) [facility] OOS BL [id number] Social History Type Description Quantity Date Captured Comments Sex Male Smoking Status No Information Chief Complaint And Reason For Visit No Information Reason For Referral Reason For Referral No Information Plan Of Treatment Date Type Action Status Goal UDT. Due on due Goal Review Allergy List. Due on due Goal AST (SGOT). Due on due Goal ALT (SGPT). Due on due Goal BOX CHIPPER Scanned. Due on 024 due Goal Creatinine. Due on due Goal OARS. Due on due Goal Height. Due on d ue Goal Unhealthy drug u se screening. Due on due Goal NUCLEAR MONITORING TECHNICIAN Paperwork. Due on due Goal Order Annual PT. Due on due Goal Lipid panel. Due [...] Goal ALT (SGPT). Due on due Goal BOX CHIPPER Scanned. Due on due Goal Tobacco Use. Due on due Goal NUCLEAR MONITORING TECHNICIAN Paperwork. Due on due Goal Medication Recon ciliation. Due on due Goal Weight. Due on d ue Goal Update Social History. Due o n due Goal Order Annual PT. Due on due Goal Unhealthy drug u se screening. Due on due Goal Creatinine. Due on due Goal AST (SGOT). Due on due Goal OARS. Due on due Goal Order Annual PT. Due on due Goal UDT. Due on due Goal NUCLEAR MONITORING TECHNICIAN Paperwork. Due on due Goal BOX CHIPPER Scanned. Due on due Goal ALT (SGPT). [...] Social History. Due o n due Goal BOX CHIPPER Scanned. Due on due Goal UDT. Due on due Goal Medication Recon ciliation. Due on due Goal AST (SGOT). Due on due Goal OARS. Due on due Goal Creatinine. Due on due Goal ALT (SGPT). Due on due Goal Order Annual PT. Due on due Goal NUCLEAR MONITORING TECHNICIAN Paperwork. Due on due Goal Height. Due on d ue Goal Review Allergy List. Due on due Goal PHQ-9. Due on du e Goal BOX CHIPPER Scanned. Due on due Goal ALT (SGPT). Due on due Goal Unhealthy drug u se screening. Due on due Goal Update Social History. Due o n due Goal Lipid panel. Due on due Goal Tobacco Use. Due on due Goal AST (SGOT). Due on due Goal NUCLEAR MONITORING TECHNICIAN Paperwork. Due on due Goal Creatinine. Due [...] Goal ALT (SGPT). Due on due Goal NUCLEAR MONITORING TECHNICIAN Paperwork. Due on due Goal BOX CHIPPER Scanned. Due on due Goal UDT. Due on due Goal AST (SGOT). Due on due Goal Order Annual PT. Due on due Goal Height. Due on d ue Goal PHQ-9. Due on du e Goal Update Social History. Due o n due Goal Weight. Due on d ue Goal Creatinine. Due on due Goal Hepatitis C screening. Due o n due Goal NUCLEAR MONITORING TECHNICIAN Paperwork. Due on due Goal Medication Recon ciliation. Due on due Goal Tobacco Use. Due on 023 due Goal AST (SGOT). Due on due Goal BOX CHIPPER Scanned. Due on due Goal ALT (SGPT). [...] Goal Lipid panel. Due on due Goal BOX CHIPPER Scanned. Due on due Goal Hepatitis C screening. Due o n due Goal NUCLEAR MONITORING TECHNICIAN Paperwork. Due on due Goal Height. Due on d ue Goal Creatinine. Due on due Goal Weight. Due on d ue Goal UDT. Due on due Goal Update Social History. Due o n due Goal Tobacco Use. Due on due Goal AST (SGOT). Due on due Goal PHQ-9. Due on du e Goal Medication Recon ciliation. Due on due Goal BOX CHIPPER Scanned. Due on due Goal NUCLEAR MONITORING TECHNICIAN Paperwork. Due on due Goal UDT. Due [...] due Goal Creatinine. Due on due Goal PHQ-9. Due on du e Goal Review Allergy List. Due on due Goal Tobacco Use. Due on due Goal Height. Due on d ue Goal Weight. Due on d ue Goal Lipid panel. Due on due Goal NUCLEAR MONITORING TECHNICIAN Paperwork. Due on due Goal Update Social [...] Goal Weight. Due on d ue Goal OARS. Due on due Goal AST (SGOT). Due on due Goal Lipid panel. Due on due Goal Tobacco Use. Due on due Goal Unhealthy drug u se screening. Due on due Goal BOX CHIPPER Scanned. Due on due Goal Order Annual PT. Due on due Goal Medication Recon ciliation. Due on due Goal NUCLEAR MONITORING TECHNICIAN Paperwork. Due on due Goal OARS. Due on due Goal ALT (SGPT). Due on due Goal Creatinine. Due on due Goal Height. Due on d ue Goal Tobacco Use. Due on due Goal AST (SGOT). Due on due Goal Unhealthy drug u se screening. Due on due Goal UDT. Due on due Goal BOX CHIPPER Scanned. Due on due Goal Lipid panel. Due on due Goal Hepatitis C screening. Due o n due Goal Weight. Due on d ue Goal Review Allergy List. Due on due Goal PHQ-9. Due on du e Goal Update Social History. Due o n due Goal Weight. Due on d ue Goal OARS. Due on due Goal Creatinine. Due on due Goal Order Annual PT. Due on due Goal ALT (SGPT). Due on due Goal BOX CHIPPER Scanned. Due on due Goal UDT. Due on due Goal AST (SGOT). Due on due Goal Review Allergy List. Due on due Goal NUCLEAR MONITORING TECHNICIAN Paperwork. Due on due Goal Medication Recon [...] Order Annual PT. Due on due Goal BOX CHIPPER Scanned. Due on due Goal Review Allergy List. Due on due Goal AST (SGOT). Due on due Goal UDT. Due on due Goal NUCLEAR MONITORING TECHNICIAN Paperwork. Due on due Goal Lipid panel. [...] ue Goal Creatinine. Due on due Goal BOX CHIPPER Scanned. Due on due Goal OARS. Due on due Goal Medication Recon ciliation. Due on due Goal AST (SGOT). Due on due Goal PHQ-9. Due on du e Goal ALT (SGPT). Due on due Goal Order Annual PT. Due on due Goal UDT. Due on due Goal NUCLEAR MONITORING TECHNICIAN Paperwork. Due on due Goal Creatinine. Due [...] Goal Weight. Due on d ue Goal BOX CHIPPER Scanned. Due on due Goal Order Annual [...] Medication Recon ciliation. Due on due Goal UDT. Due on due Goal OARS. Due on due Goal Creatinine. Due on due Goal NUCLEAR MONITORING TECHNICIAN Paperwork. Due on due Goal PHQ-9. Due on du e Goal Height. Due on d ue Goal UDT. Due on due Goal Weight. Due on d ue Goal Unhealthy drug u se screening. Due on due Goal Creatinine. Due on due Goal Medication Recon ciliation. Due on due Goal BOX CHIPPER Scanned. Due on due Goal OARS. Due on due Goal Lipid panel. Due on due Goal ALT (SGPT). Due on due Goal PHQ-9. Due on du e Goal AST (SGOT). Due on due Goal Review Allergy List. Due on due Goal Update Social History. Due o n due Goal NUCLEAR MONITORING TECHNICIAN Paperwork. Due on due Goal Tobacco Use. Due on due Goal Height. Due on d ue Goal Order Annual PT. Due on due Goal Hepatitis C screening. Due o n due Goal NUCLEAR MONITORING TECHNICIAN Paperwork. Due on due Goal Tobacco Use. Due on due Goal Height. Due on d ue Goal OARS. Due on due Goal PHQ-9. Due on du e Goal Hepatitis C screening. Due o n due Goal BOX CHIPPER Scanned. Due on due Goal Creatinine. Due [...] Goal Weight. Due on d ue Goal BOX CHIPPER Scanned. Due on due Goal AST (SGOT). [...] Order Annual PT. Due on due Goal NUCLEAR MONITORING TECHNICIAN Paperwork. Due on due Goal Medication Recon [...] Goal ALT (SGPT). Due on due Goal NUCLEAR MONITORING TECHNICIAN Paperwork. Due on due Goal BOX CHIPPER Scanned. Due on due Goal Medication Recon ciliation. Due on due Goal Review Allergy List. [...] ue Goal Creatinine. Due on due Goal PHQ-9. Due on du e Goal Medication Recon ciliation. Due on due Goal Hepatitis C screening. Due o n due Goal Lipid panel. Due on due Goal Update Social History. Due o n due Goal Review Allergy List. Due on due Goal Height. Due on d ue Goal NUCLEAR MONITORING TECHNICIAN Paperwork. Due on due Goal BOX CHIPPER Scanned. Due on Macario due Goal UDT. Due on due Goal Order Annual PT. Due on due Goal AST (SGOT). Due on due Goal OARS. Due on due Goal ALT (SGPT). Due on due Goal Tobacco Use. Due on due Goal Weight. Due on d ue Goal Unhealthy drug u se screening. Due on due Goal AST (SGOT). Due on due Goal NUCLEAR MONITORING TECHNICIAN Paperwork. Due on due Goal OARS. Due on due Goal UDT. Due on due Goal ALT (SGPT). Due on due Goal BOX CHIPPER Scanned. Due on due Goal Creatinine. Due [...] Goal Lipid panel. Due on due Goal Order Annual PT. Due on due Goal OARS. Due on due Goal UDT. Due on due Goal BOX CHIPPER Scanned. Due on due Goal Creatinine. Due on due Goal NUCLEAR MONITORING TECHNICIAN Paperwork. Due on due Goal ALT (SGPT). Due on due Goal Weight. Due on d ue Goal ALT (SGPT). Due on due Goal BOX CHIPPER Scanned. Due on due Goal Order Annual [...] ue Goal OARS. Due on due Goal AST (SGOT). Due on due Goal Creatinine. Due on due Goal Update Social History. Due o n due Goal NUCLEAR MONITORING TECHNICIAN Paperwork. Due on due Goal PHQ-9. Due on du e Goal Weight. Due on d ue Goal Lipid panel. Due on due Goal AST (SGOT). Due on due Goal UDT. Due on due Goal Order Annual PT. Due on due Goal OARS. Due on due Goal BOX CHIPPER Scanned. Due on due Goal Creatinine. Due on due Goal Update Social History. Due o n due Goal Tobacco Use. Due on due Goal ALT (SGPT). Due on due Goal Review Allergy List. Due on due Goal NUCLEAR MONITORING TECHNICIAN Paperwork. Due on due Goal Unhealthy drug u se screening. Due on due Goal Lipid panel. Due on due Goal Height. Due on d ue Goal Weight. Due on d ue Goal Medication Recon ciliation. Due on due Goal PHQ-9. Due on du e Goal Hepatitis C screening. Due o n due Goal NUCLEAR MONITORING TECHNICIAN Paperwork. Due on due Goal OARS. Due on due Goal Tobacco Use. Due on due Goal Creatinine. Due on due Goal Order Annual PT. Due on due Goal Hepatitis C screening. Due o n due Goal BOX CHIPPER Scanned. Due on due Goal Lipid panel. [...] Goal Lipid panel. Due on due Goal BOX CHIPPER Scanned. Due on due Goal Tobacco Use. [...] Social History. Due o n due Goal NUCLEAR MONITORING TECHNICIAN Paperwork. Due on due Goal Hepatitis C screening. Due o n due Goal Order Annual PT. Due on due Goal BOX CHIPPER Scanned. Due on due Goal AST (SGOT). Due on due Goal Creatinine. Due on due Goal Order Annual PT. Due on due Goal Medication Recon ciliation. Due on due Goal NUCLEAR MONITORING TECHNICIAN Paperwork. Due on due Goal OARS. Due [...] Goal Lipid panel. Due on due Goal Creatinine. Due on due Goal Hepatitis C screening. Due o n due Goal Weight. Due on d ue Goal Lipid panel. Due on due Goal BOX CHIPPER Scanned. Due on due Goal Tobacco Use. Due on due Goal OARS. Due on due Goal PHQ-9. Due on du e Goal UDT. Due on due Goal Review Allergy List. Due on due Goal Height. Due on d ue Goal NUCLEAR MONITORING TECHNICIAN Paperwork. Due on due Goal ALT (SGPT). [...] Goal PHQ-9. Due on du e Goal BOX CHIPPER Scanned. Due on due Goal UDT. Due on due Goal NUCLEAR MONITORING TECHNICIAN Paperwork. Due on due Goal Medication Recon [...] Goal Weight. Due on d ue Goal BOX CHIPPER Scanned. Due on due Goal Creatinine. Due on due Goal AST (SGOT). Due on due Goal NUCLEAR MONITORING TECHNICIAN Paperwork. Due on due Goal Update Social History. Due o n due Goal PHQ-9. Due on du e Goal Medication Recon ciliation. Due on due Goal Unhealthy drug u se screening. Due on due Goal Review Allergy List. Due on due Goal Height. Due on d ue Goal NUCLEAR MONITORING TECHNICIAN Paperwork. Due on due Goal AST (SGOT). [...] Social History. Due o n due Goal BOX CHIPPER Scanned. Due on due Goal OARS. Due on due Goal Hepatitis C screening. Due o n due Goal Weight. Due on d ue Goal Creatinine. Due on due Goal Review Allergy List. Due on due Goal Medication Recon ciliation. Due on due Goal OARS. Due on due Goal BOX CHIPPER Scanned. Due on due Goal Order Annual PT. Due on due Goal Weight. Due on d ue Goal ALT (SGPT). Due on due Goal Creatinine. Due on due Goal AST (SGOT). Due on due Goal NUCLEAR MONITORING TECHNICIAN Paperwork. Due on due Goal UDT. Due on due Goal Tobacco Use. Due on due Goal Update Social History. Due o n due Goal PHQ-9. Due on du e Goal Height. Due on d ue Goal OARS. Due on due Goal Medication Recon ciliation. Due on due Goal Update Social History. Due o n due Goal Creatinine. Due on due Goal AST (SGOT). Due on due Goal Review Allergy List. Due on due Goal UDT. Due on due Goal Tobacco Use. Due on due Goal Order Annual PT. Due on due Goal PHQ-9. Due on du e Goal NUCLEAR MONITORING TECHNICIAN Paperwork. Due on due Goal Height. Due on d ue Goal ALT (SGPT). Due on due Goal Weight. Due on d ue Goal BOX CHIPPER Scanned. Due on due Goal UDT. Due on due Goal AST (SGOT). Due on due Goal Order Annual PT. Due on due Goal Review Allergy List. Due on due Goal PHQ-9. Due on du e Goal Update Social History. Due o n due Goal BOX CHIPPER Scanned. Due on due Goal NUCLEAR MONITORING TECHNICIAN Paperwork. Due on due Goal OARS. Due on due Goal ALT (SGPT). Due on due Goal Medication Recon ciliation. Due on due Goal Creatinine. Due on due Goal Height. Due on d ue Goal Weight. Due on d ue Goal Tobacco Use. Due on due Goal UDT. Due on due Goal ALT (SGPT). Due on due Goal BOX CHIPPER Scanned. Due on due Goal Height. Due on d ue Goal Order Annual PT. Due on due Goal Medication Recon ciliation. Due on due Goal OARS. Due on due Goal NUCLEAR MONITORING TECHNICIAN Paperwork. Due on due Goal PHQ-9. Due on du e Goal Tobacco Use. Due on due Goal Creatinine. Due on due Goal Weight. Due on d ue Goal Update Social History. Due o n due Goal AST (SGOT). Due on due Goal Review Allergy List. Due on due Goal UDT. Due on due Goal Creatinine. Due on due Goal AST (SGOT). Due on due Goal OARS. Due on due Goal ALT (SGPT). Due on due Goal NUCLEAR MONITORING TECHNICIAN Paperwork. Due on due Goal Order Annual PT. Due on due Goal Height. Due on d ue Goal Tobacco Use. Due on due Goal Weight. Due on d ue Goal Update Social History. Due o n due Goal Medication Recon ciliation. Due on due Goal BOX CHIPPER Scanned. Due on due Goal PHQ-9. Due on du e Goal Review Allergy List. Due on due Goal Update Social History. Due o n due Goal Order Annual PT. Due on due Goal UDT. Due on due Goal OARS. Due on due Goal PHQ-9. Due on du e Goal Medication Recon ciliation. Due on due Goal ALT (SGPT). Due on due Goal NUCLEAR MONITORING TECHNICIAN Paperwork. Due on due Goal BOX CHIPPER Scanned. Due on due Goal AST (SGOT). [...] Goal ALT (SGPT). Due on due Goal BOX CHIPPER Scanned. Due on due Goal Height. Due on d ue Goal AST (SGOT). Due on due Goal Creatinine. Due on due Goal NUCLEAR MONITORING TECHNICIAN Paperwork. Due on due Goal OARS. Due on due Goal Order Annual PT. Due on due Goal UDT. Due on due Goal Tobacco Use. Due on due Goal Update Social History. Due o n due Goal UDT. Due on due Goal BOX CHIPPER Scanned. Due on due Goal AST (SGOT). Due on due Goal Medication Recon ciliation. Due on due Goal Order Annual PT. Due on due Goal Height. Due on d ue Goal OARS. Due on due Goal Weight. Due on d ue Goal ALT (SGPT). Due on due Goal Creatinine. Due on due Goal NUCLEAR MONITORING TECHNICIAN Paperwork. Due on due Goal Review Allergy List. Due on due Goal PHQ-9. Due on du e Goal UDT. Due on due Goal Medication Recon ciliation. Due on due Goal Height. Due on d ue Goal Update Social History. Due o n due Goal BOX CHIPPER Scanned. Due on due Goal Review Allergy List. Due on due Goal OARS. Due on due Goal Order Annual PT. Due on due Goal NUCLEAR MONITORING TECHNICIAN Paperwork. Due on due Goal Tobacco Use. Due on due Goal Weight. Due on d ue Goal ALT (SGPT). Due on due Goal AST (SGOT). Due on due Goal Creatinine. Due on due Goal PHQ-9. Due on du e Goal Creatinine. Due on due Goal OARS. Due on due Goal Tobacco Use. Due on due Goal BOX CHIPPER Scanned. Due on due Goal Update Social History. Due o n due Goal Weight. Due on d ue Goal Medication Recon ciliation. Due on due Goal AST (SGOT). Due on due Goal ALT (SGPT). Due on due Goal UDT. Due on due Goal NUCLEAR MONITORING TECHNICIAN Paperwork. Due on due Goal Order Annual PT. Due on due Goal PHQ-9. Due on du e Goal Height. Due on d ue Goal Review Allergy List. Due on due Goal OARS. Due on due Goal UDT. Due on due Goal Update Social History. Due o n due Goal PHQ-9. Due on du e Goal NUCLEAR MONITORING TECHNICIAN Paperwork. Due on due Goal Weight. Due on d ue Goal Tobacco Use. Due on due Goal AST (SGOT). Due on due Goal ALT (SGPT). Due on due Goal Medication Recon ciliation. Due on due Goal Order Annual PT. Due on due Goal Review Allergy List. Due on due Goal BOX CHIPPER Scanned. Due on due Goal Height. Due on d ue Goal Creatinine. Due on due Goal NUCLEAR MONITORING TECHNICIAN Paperwork. Due on due Goal Weight. Due on d ue Goal BOX CHIPPER Scanned. Due on due Goal Update Social [...] Medication Recon ciliation. Due on due Goal BOX CHIPPER Scanned. Due on due Goal Medication Recon [...] Goal Weight. Due on d ue Goal NUCLEAR MONITORING TECHNICIAN Paperwork. Due on due Goal Update Social History. Due o n due Goal Review Allergy List. Due on due Goal UDT. Due on due Goal Creatinine. Due on due Goal NUCLEAR MONITORING TECHNICIAN Paperwork. Due on due Goal AST (SGOT). Due on due Goal OARS. Due on due Goal Height. Due on d ue Goal ALT (SGPT). Due on due Goal PHQ-9. Due on du e Goal BOX CHIPPER Scanned. Due on due Goal Review Allergy List. Due on due Goal Medication Recon ciliation. Due on due Goal Tobacco Use. Due on due Goal Weight. Due on d ue Goal Update Social History. Due o n due Goal Order Annual PT. Due on due Referral Ordered: MRI LUMBAR SPINE W/O DYE ordered Appointment Lawson Whitley BOOKED Appointment Lawson Whitley BOOKED Future Order: Lab Order Drug Genna t Def 22+ Classes (G0483), Ordered on: Ordered History Of Present Illness Encounter Date Complaint History Of Prese nt Illness Comments: Lawson gonzalez s a 47 y/o male who presents via [facility] for a virtual follow up and medication refill in the setting of chronic low back pain with radiation into the legs. Pain has been fluctuating this month. Low back pain has been the most bothersome. Remains interested in pursuing the SCS trial as he was deemed as not an appropriate surgical candidate by Dr. Lawson Thurman MD through [facility]. He states he has been unable to schedule the procedure. Most of today's visit was spent on pre-trial education.Reports current medication regimen provides 30-40% pain relief and allows for increased functionality such as being able to maintain his job. Continues to utilize Percocet 10-325mg QID with moderate benefit. Denies OIC or other side effects from current medication regimen. No other concerns today. low back pain Severity level i s 7. Duration: chronic. The problem is worsening. It occurs persistently. Symptoms are relieved by pain meds/drugs. low back pain Severity level i s 7. Duration: chronic. The problem is stable. Location of pain is lower back. Comments: Lawson gonzalez s a 47 y/o male who presents via [facility] for a virtual follow up and medication refill in the setting of chronic low back pain with radiation into the legs. Pain has been stable this month. Low back pain with radiation into the R lateral leg and intermittently in the L leg has been the most bothersome. S/p L5-S1 IESI on 06/20/2023 and notes 80% pain relief to his BL hips, 60% pain relief to his back, and 100% pain relief to his BL legs. Notes his back pain is still persistent but feels less intense, and he has more functionality.Had consulted with Dr. Lawson Thurman MD through [facility] on 06/18/2023 for the ongoing low back pain. He states he was deemed as not an appropriate candidate for surgery as his primary pain is located in the low back and they report most patients do not benefit greatly from surgery for that particular pain. Was advised to pursue more conservative treatments. S/p foot surgery on 06/29/2023 with [facility] to remove hardware for management of the foot pain as he had 2 prior foot surgeries through them before. Continues to recover appropriately. States he was give #15 tabs of hydrocodone for post-operative pain. Notes he has a GI appointment on 07/03/2023 and was previously encouraged to stay on amitriptyline to manage both his pain and GI issues. Reports current medication regimen provides 40% pain relief and allows for increased functionality such as being able to maintain his job. Continues to utilize Percocet 10-325mg QID with moderate benefit. Continues to benefit from amitriptyline and notes some drowsiness, which has helped him sleep at night. Denies OIC or other side effects from current medication regimen. No other concerns today. 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 Patient is hopeful a SCS will help [...] pursue more conservative treatments. Followed up with [facility] for management of the foot pain [...] anterior legs to the kneecaps after his inside polisher flipped when he ran over a tree branch and he landed on the motor. Notes bending forward causes the pain and numbness to increase. Denies any urinary incontinence. Recalls obtaining a surgical consultation with a energy conservation specialist years ago and was advised to wait for surgery. Inquires if he should consult with [facility] or [facility]. Notes he is hesitant to go back to [facility] as he has already completed 2 [...] medication regimen. No other concerns today. Fibromyalgia Duration: chroni c. It occurs persistently. [...] be leaving on a motorcycle trip to [place] on 04/02/2023 and hopes his pain is tolerable. Fibromyalgia Severity level i s 8. Duration: [...] be leaving on a motorcycle trip to [place] on 04/02/2023. Comments: Lawson graham a 47 y/o male who presents for [...] the IV sedation.Have yet to consult with [facility] for the ongoing struggle with [...] obtain bone imaging of the foot with [facility] soon. Of note, patient is currently [...] plan to call Dr. Anastacia Robertson at [facility] soon. Reports current medication regimen [...] (urinary). Comments: Lawson graham a 46 y/o male who presents via [facility] for virtual follow up and medication refill [...] Have yet to receive a call from [facility] regarding his consultation with Dr. Ray Mathews [...] regimen. No other concerns today. Comments: Lawson graham a 46 y/o male who presents via [facility] for virtual follow up and medication refill [...] a 46 y/o male who presents via [employer] for virtual follow up and medication refill [...] a 46 y/o male who presents via [employer] for virtual follow up and medication refill [...] medical cannabis PRN. No other concerns today. Comments: Lawson graham a 46 y/o male, presenting via [facility] for virtual follow up and medication refill [...] was also doing balloon stretching procedure at [facility] and got infection, spent 5 days hospitalized. [...] supine, massage, rest, cold and Rx Meds. Fibromyalgia Severity level i s 7. Duration: [...] had another bowel obstruction. He went to [facility] and was sent to [facility] in [place] 2 weeks ago. At [facility], he had a colonoscopy and a procedure [...] he developed a treatment plan with his cellular equipment installer regarding his partial blockage. States he should be able to manage with medication and regular exercise. He continues to detail difficulty with exercising s/p R great toe fusion with Dr. Mejia at [facility] on 05/04/21. Plans to continue following with cardiology and [facility]. Reports current medication regimen provides moderate pain relief and allows increased functionality. Denies side effects from current medication regimen. No other concerns today. Fibromyalgia (comments) Lawson is a 46 y/o male, presenting via [facility] for virtual follow up and medication refill in the setting of widespread pain r/t fibromyalgia. He states his pain is worse this month.Low back pain with radiation into his BL legs (R>L) is stable. He states he has met with a energy conservation specialist at [facility] a few months ago who told him they would trim the disc. He is scheduled for his BL L4-5 TFESI on 08/31/[address] Haley Huynh. He states he was at [facility] for the past week & reports [...] treatments. He will be f/u with a cellular equipment installer on 09/03/2021 at [facility] he also noted he had a bowel [...] states he is exploring a procedure with [facility] where they can open up the intestine with a small balloon or just remove that specific part of the intestine. He states his GI doctor did not mention his opoid medications as a contributing factor to his obstruction. S/p R great toe fusion with Dr. Mejia at [facility] on 05/04/21. He reports he believes he may have pulled a screw out through activity but states he was not able to make appt with [facility] to revaluate this as he was in the hospital. At [facility] he stated he met with a shoulder surgeon on 06/16/21 at [facility] and they completed a R shoulder [...] He states he has met with a energy conservation specialist at [facility] a few months ago who told him they would trim the disc.S/p R great toe fusion with Dr. Mejia at [facility] on 05/04/21. He states he is doing PT currently. He reports he had a blood clot after his surgery. He states he was told to increase his Lyrica dosage to 500mg which caused water retention and leg swelling. He reports he has now gone back down to 300mg a day. He states he met with a shoulder surgeon on 06/16/21 at [facility] and they completed a R shoulder [...] great toe fusion with Dr. Mejia at [facility] on 05/04/21. He states he has a f/u appt scheduled in [place] for 06/16/21 and he will begin PT then.He presents with a boot on his left foot today. He notes he will also be consulting with a shoulder surgeon on 06/16/21 at [facility] as well. Medications provide 30% pain relief. He states he takes between #4-6tabs of Percocet 7.5-325mg a day. He continues to take Lyrica 100mg 3x/day and Wellbutrin which he states is helping with his depression. He thinks since stopping Tramadol his mood has improved. Denies OIC or other SEs. No other concerns today. Fibromyalgia (comments) Lawson is a 45 y/o male, presenting via [facility] for virtual visit follow up and medication refill in the setting of widespread pain d/t fibromyalgia. His primary concern today is poor control of post operative pain. He also inquires about getting repeat shoulder injections today. S/p R great toe fusion, Dr. Mejia at [facility] on 05/04/21. He states he has [...] his R foot with Dr. Mejia at [facility] on 05/04/21. It is extremely bruised, and [...] his R foot with Dr. Mejia at [facility] on 04/28/2021.He states he was recently [...] allows for increased functionality. He takes #1tab Brandon in the morning to help him get [...] his foot surgery, he will reschedule with [facility].Reports current medication regimen provides 30% pain [...] his foot surgery, he will reschedule with [facility].Reports current medication regimen provides 40% pain [...] scheduled for his toe fusion soon with [facility].Reports current medication regimen provides 40% pain [...] upper ankle sprain and concussion. He visited [facility] ER. They took an MRI showed [...] Lawson is meeting with us today via [employer] Visit for following up and medication refill. [...] Lawson is meeting with us today via [employer] [facility] for following up and medication refill. [...] well. He is scheduled to f/u with [facility] to discuss toe surgery. Currently wearing [...] pain level daily.His PCP referred him to [facility] for right shoulder pain. They took [...] cover him for workP referred him to [facility] for the right big toe pain. He did not care for surgeon there so the referred to him to [facility] who took an X-ray. Results showed [...] with toe pain relief.No other concerns today. low back pain (comments) Low caridad k [...] showed 2 bone spurs and severe DJD. family resource management specialist in [facility] recommended fusion or artificial joint replacement. [...] right shoulder pain (comments) Deon vides consulted [facility] for his right shoulder pain who ordered an MRI, review of results pending Fibromyalgia (comments) Lawson is meeting with us today via [facility] for following up and medication refill. Overall fibromyalgia pain persists this month, tolerable with medication. Reports stabbing pain in front/side of right shoulder. Reports previous rotator cuff issues in left shoulder, pain resolved after surgery at [facility] through [facility]. Reports only about 5 [...] medication. He followed up with specialist at [facility] per referral who did not have much he could do for his pain. He only recommended that the patient get an X-ray of his hands to look for changes.Reports current medication regimen provides 60% pain relief and allows for increased functionality. Denies side effects from current medication regimen. Reports improved sleep with medical cannabis (tangerine formula form [employer]). Improved sleep has lead to improved pain [...] incontinence (urinary). Fibromyalgia Severity level i s 3. Duration: [...] not noticed improved relief. Reports grogginess with Brandon.No other concerns today. Fibromyalgia Severity level i [...] increased this last month. Tramadol ER and Brandon helps keep pain manageable and allows him [...] injections and plantar fascia injections once the [place] office reopens. 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 Patient is not accompanied today and has no other questions or concerns. Fibromyalgia Severity level i s 7. Duration: chronic. The patient describes it as sharp and achy. It occurs persistently. The problem is stable. Symptom is aggravated by walking upstairs, walking downstairs, standing, lifting and prolonged positions. Relieving factors include massage, rest and Rx Meds. Fibromyalgia (comments) Lawson patt urns for follow up for widespread pain [...] medication. 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 No further [...] relief with tizanidine. Reports past relief with Brandon would like to switch from Tramadol IR to Brandon. Percocet causes stomach upset.Right 1st MTP joint pain persists. Requests update procedure ordered at last OV to have oral sedation.Shoulder pain persists, reports hx of left rotator cuff surgery. He is currently following up at [facility] and completing PT to prevent surgery on [...] them so much for work as an stage electrician. He cannot wear his steel toed [...] with Tylenol.Advil - helpful.diclofenac gel - not helpful.Brandon - somewhat helpful, causes disorientation, does not [...]
--- OUTSIDE RECORDS SUMMARY | 2023-08-20 16:36 | XMS_ITS | Clinical Summary ---
Author Name Unknown Organization [facility] Address [address] [place] [address] Care Team Providers Care Alumnae Secretary Name Role Phone Silvestre Cortez MD Primary Care Provider [phone]- [phone] Source Comments You are receiving this document as you are listed as the primary care provider,follow-up provider, or the patient has been referred to you for consultation.This is in compliance with the Medicare and[facility] EHR Incentive Program,which states Providers who transition their patient to another setting of careor provider of care or refers their patient to another provider of care shouldprovide summary care record for each transition of care or referral. [facility] Allergies No known active allergies Medications [...] Comments Blood Pressure 141/85 09/13/2019 10:28 AM RE RECORDING MIXER Pulse 77 06/04/2019 9:18 AM RE RECORDING MIXER Temperature 36.7 ??C (98 ??F) 09/13/2019 10:28 AM RE RECORDING MIXER Respiratory Rate - - Oxygen Saturation - - Inhaled Oxygen Concentration - - Weight 110.7 kg (244 lb) 06/04/2019 9:18 AM RE RECORDING MIXER Height - - Body Mass Index - [...] age to complete this topic Care Teams Alumnae Secretary Relationship Specialty Start Date End Date Silvestre Cortez MD [address] [place], [place] [id number] PCP - General 05/21/19
--- OUTSIDE RECORDS SUMMARY | 2023-08-20 16:36 | XMS_ITS ---
Author Name Unknown Organization [facility] Address [address] [place] [address] Care Team Providers Care Counter Roller Name Role Phone Unavailable Unavailable Unavailable Surgery Details Not on file Complications Check Surgery Details section. Procedure Estimated Blood Loss Check Surgery Details section. Procedure Findings Check Surgery Details section. Procedure Specimens Taken Check Surgery Details section.
--- OUTSIDE RECORDS SUMMARY | 2023-08-20 16:36 | XMS_ITS | Clinical Summary ---
Author Name Unknown Organization [facility] Address [place], [place] [address] Care Team Providers Care Community Support Professional Name Role Phone Mark Gallegos MD Primary Care Provider [phone] Allergies No known active allergies Medications Medication [...] Comments Code Status Discussion: Discussed Care Teams Community Support Professional Relationship Specialty Start Date End Date Mark Gallegos MD PCP - General Family Practice 07/30/21
--- OUTSIDE RECORDS SUMMARY | 2023-08-20 16:36 | XMS_ITS | Referral Summary ---
Author Name Unknown Organization [facility] Address [address] [place] [address] Care Team Providers Care Actimize Architect Name Role Phone Elsewhere, Pcp Primary Care Provider Unavailabl e Source Comments Patient records contain information from all sites at [facility]. For routine questions regarding patient records, call [phone] during business hours, M-F 8:00 AM - 5:00 PM Central Time. Record requests for emergency care only can be directed to [phone] at any time.[facility] Encounters Date Type Department Care Team Description 08/04/2023 6:15 PM PERFORATOR OPERATOR Office Visit Urgent Care, [facility], in [place], [place] [address] [place] [id number] Brant Gonzalez APRN, C.N.P., D.N.P. Pharyngitis Streptococcal [...] hours as needed for pain. 0 Active aspirin 81 mg chewable tablet Chew [...] immediately before bedtime 0 08/04/19 24 Discontinued amoxicillin (AMOXIL) 500 mg capsuleIndications :Pharyngitis Streptococcal Take 2 capsules (1,000 mg total) by mouth daily for 10 days. 20 capsule 0 4 08/14/19 24 Active Problems Problem Noted Date Diagnosed Date [...] often do you attend chur ch or advent services? More than 4 times per year 09/15/2021 Do you belong to any clubs o r organizations such as buddhism groups, unions, fraternal or athletic groups, or [...] care, and heating? Not very hard 09/15/2021 [facility] - [...] or slept in a long-term (including now)? No 09/15/2021 Nutrition Answer Date [...] Sex Assigned at Male 09/15/2021 9:14 AM PERFORATOR OPERATOR Gender Identity Male 09/15/2021 9:14 AM PERFORATOR OPERATOR Sexual Orientation Straight 09/15/2021 9: 14 AM PERFORATOR OPERATOR Last Filed Vital Signs Vital Sign Reading Time Taken Comments Blood Pressure 107/72 08/04/2023 6:16 PM PERFORATOR OPERATOR Pulse 98 08/04/2023 6:16 PM PERFORATOR OPERATOR Temperature 36.2 ??C (97.1 ??F) 08/04/2023 6:16 PM CS T Respiratory Rate 14 10/13/2021 10:30 AM CDT Oxygen Saturation 97% 08/04/2023 6:16 PM PERFORATOR OPERATOR Inhaled Oxygen Concentration - - Weight 119 kg (261 lb 11 oz) 09/18/2021 4:03 PM PERFORATOR OPERATOR Height 185 cm (6' 0.84) 09/21/2021 11:02 AM PERFORATOR OPERATOR Body Mass Index 34.68 09/18/2021 4:03 PM PERFORATOR OPERATOR Plan of Treatment Not on file Medical Devices Implanted Type Area Color Checker Device Identifier Shelf Expiration Date Model / Serial / Lot Clp Hemo Cath [id number] - [id number] Implanted:Qt y: 1 on 09/13/2021 by Wolf Pena, Ph.D. at [facility] Hardware e.g. pins/screws /rods [employer] [id number] 05/10/2024 [id number] / / [id number] Clp Hemo Cath [id number] - [id number] Implanted:Qt y: 1 on 10/13/2021 by Wolf Salmeron M.D. at [facility] Hardware e.g. pins/screws /rods N/A: Ileum [employer] [id number] 11/27/2023 [id number] / / [id number] Advance Directives For more information, please contact: [phone] Latest Code Status on File Code Status Date Activated Date Inactivated Comments Full Code 09/18/2021 2:51 PM 09/21/2021 8:46 PM Question Answer Comments Full Code: Discussed Code Status History Code Status Date Activated Date Inactivated Comments Full Code 09/06/2021 4:18 PM 09/08/2021 4:06 PM Question Answer Comments Full Code: Discussed Care Teams Actimize Architect Relationship Specialty Start Date End Date Elsewhere, Pcp PCP - General Internal Medicine 09/18/21
--- OUTSIDE RECORDS SUMMARY | 2023-08-20 16:36 | XMS_ITS | Clinical Summary ---
Author Name Unknown Organization [facility] Address [address] [place] [address] Care Team Providers Care Color Room Attendant Name Role Phone Elsewhere, Pcp Primary Care Provider Unavailabl e Source Comments Patient records contain information from all sites at [facility]. For routine questions regarding patient records, call [phone] during business hours, M-F 8:00 AM - 5:00 PM Central Time. Record requests for emergency care only can be directed to [phone] at any time.[facility] Allergies Active Allergy Reactions Criticality Noted Date [...] Department Care Team Description 08/04/2023 6:15 PM MANAGED CARE LIAISON Office Visit Urgent Care, [facility], in [address] [address] Brant Gonzalez, SID, C.N.P., D.N.P. Pharyngitis Streptococcal [...] often do you attend chur ch or voodoo services? More than 4 times per year 09/15/2021 Do you belong to any clubs o r organizations such as mosque groups, unions, fraternal or athletic groups, or [...] care, and heating? Not very hard 09/15/2021 [facility] - Occupational [...] or slept in a fdc (including now)? No 09/15/2021 Nutrition Answer Date [...] Sex Assigned at Male 09/15/2021 9:14 AM MANAGED CARE LIAISON Gender Identity Male 09/15/2021 9:14 AM MANAGED CARE LIAISON Sexual Orientation Straight 09/15/2021 9: 14 AM MANAGED CARE LIAISON Last Filed Vital Signs Vital Sign Reading Time Taken Comments Blood Pressure 107/72 08/04/2023 6:16 PM MANAGED CARE LIAISON Pulse 98 08/04/2023 6:16 PM MANAGED CARE LIAISON Temperature 36.2 ??C (97.1 ??F) 08/04/2023 6:16 PM CS T Respiratory Rate 14 10/13/2021 10:30 AM CDT Oxygen Saturation 97% 08/04/2023 6:16 PM MANAGED CARE LIAISON Inhaled Oxygen Concentration - - Weight 119 kg (261 lb 11 oz) 09/18/2021 4:03 PM MANAGED CARE LIAISON Height 185 cm (6' 0.84) 09/21/2021 11:02 AM MANAGED CARE LIAISON Body Mass Index 34.68 09/18/2021 4:03 PM MANAGED CARE LIAISON Plan of Treatment Health Maintenance Due Date [...] this topic Medical Devices Implanted Type Area Systems Trainer Device Identifier Shelf Expiration Date Model / Serial / Lot Clp Hemo Cath [id number] - [id number] Implanted:Qt y: 1 on 09/13/2021 by Wolf Pena, Ph.D. at [facility] Hardware e.g. pins/screws /rods [employer] [id number] 05/10/2024 [id number] / / [id number] Clp Hemo Cath [id number] - [id number] Implanted:Qt y: 1 on 10/13/2021 by Wolf Salmeron M.D. at [facility] Hard[facility] e.g. pins/screws /rods N/A: Ileum [employer] [id number] 11/27/2023 [id number] / / [id number] Advance Directives For more information, please contact: [phone] Latest Code Status on File Code Status Date Activated Date Inactivated Comments Full Code 09/18/2021 2:51 PM 09/21/2021 8:46 PM Question Answer Comments Full Code: Discussed Code Status History Code Status Date Activated Date Inactivated Comments Full Code 09/06/2021 4:18 PM 09/08/2021 4:06 PM Question Answer Comments Full Code: Discussed Care Teams Color Room Attendant Relationship Specialty Start Date End Date Elsewhere, Pcp PCP - General Internal Medicine 09/18/21
--- OUTSIDE RECORDS SUMMARY | 2023-08-20 16:36 | XMS_ITS | Encounter Summary ---
Author Name Unknown Organization [facility] Address [address] [place] [address] Care Team Providers Care Commercial Census Taker Name Role Phone Elsewhere, Pcp Primary Care Provider Unavailabl e Reason for Visit * Reason Comments Sore Throat Nasal Congestion wens Encounter Details Date Type Department Care Team (Latest Contact Info) Description 08/04/2023 6:15 PM WASHTUB WORKER Office Visit Urgent Care, [facility], in [place], [place] [address] [place] [address] Brant Gonzalez, SID, C.N.P., D.N.P. [...] often do you attend chur ch or restoration services? More than 4 times per year 09/15/2021 Do you belong to any clubs o r organizations such as uatsdin groups, unions, fraternal [...] place to sleep or slept in a prison (including now)? No 09/15/2021 Nutrition Answer Date [...] Sex Assigned at Male 09/15/2021 9:14 AM WASHTUB WORKER Gender Identity Male 09/15/2021 9:14 AM WASHTUB WORKER Sexual Orientation Straight 09/15/2021 9: 14 AM WASHTUB WORKER documented as of this encounter Last Filed Vital Signs Vital Sign Reading Time Taken Comments Blood Pressure 107/72 08/04/2023 6:16 PM WASHTUB WORKER Pulse 98 08/04/2023 6:16 PM WASHTUB WORKER Temperature 36.2 ??C (97.1 ??F) 08/04/2023 6:16 PM CS T Respiratory Rate - - Oxygen Saturation 97% 08/04/2023 6:16 PM WASHTUB WORKER Inhaled Oxygen Concentration - - Weight - - Height - - Body Mass Index - - documented in this encounter Patient Instructions * Attachments The following attachments cannot be sent through Care Everywhere. * Sore Throat Care (Chilean) documented in this encounter Progress Notes * [...] Gonzalez APRN, C.NLarry, D.N.P. 08/04/23 6:26 PM WASHTUB WORKER TUB WORKER documented in this encounter Plan of Treatment Not on file documented as of this encounter Visit Diagnoses Diagnosis Pharyngitis Streptococcal- Primary documented in this encounter Care Teams Commercial Census Taker Relationship Specialty Start Date End Date Elsewhere, Pcp PCP - General Internal Medicine 09/18/21 documented as of this encounter
[2023-08-20] MEDS: KETOROLAC 30 MG/ML inj IM (16:38)
[2023-08-20] MEDS: predniSONE 20 MG TABLET 60 MG PO (16:39)
[2023-08-20] MEDS: MORPHINE 4 MG/ML INJ 10 MG IM (16:39)
== END 2023-08-20 17:16 | disposition home or self-care (01) ==
LOC: ED 16:32
PROVIDERS: Emergency Provider Emergency Medicine; PCP Family Medicine
DX: M54.16 Radiculopathy, lumbar region (principal)
CPT/HCPCS: 82947; 96372; 99283; 99284; J1885; J2270; J7512